=== PATIENT | female | born 1935 | race Caucasian/White ===

== ENCOUNTER 2016-08-13 13:46 | Emergency (ER) | payer MEDICARE ==
[2016-08-13] MEDS ORDERED: ONDANSETRON 4 MG/2 ML VIAL IVP STA (14:21)
[2016-08-13] MEDS ORDERED: SODIUM CHLORIDE 0.9% 1,000 ML IV STA (14:21)
[2016-08-13] MEDS ORDERED: RX INFO: IV CONTRAST WAS GIVEN 1 EACH MISC MISCELLANE PRN (14:21)
[2016-08-13] MEDS ORDERED: HYDROmorphone 1 MG/ML 1 ML SYRINGE IVP STA (14:21)
[2016-08-13 14:54] LABS: Amorphous Sediment,Urine Rare /hpf; Appearance,Urine Clear (Clear); Bilirubin,Urine Negative (Negative); Glucose,Urine (UA) Negative (Negative); Ketones,Urine Negative (Negative); Leukocyte Esterase,Urine Small (Negative); Nitrite,Urine Negative (Negative); Particle Count 792; Protein,Urine Negative (Negative); RBC,Urine 1 /hpf (0-5); Specific Gravity,Urine 1.008 (1.001-1.035); Squamous Epithelial Cell,Urine 1 /hpf (0-4); UA Billing (MACRO vs. MICRO) MICRO; Urobilinogen,Urine <2.0 mg/dL (<2.0); WBC,Urine 4 /hpf (0-5)
[2016-08-13 15:00] LABS: Basophils % (A) 0 %; CH 31.5; CHCM 32.8; Eosinophils # (A) 0.2 k/uL (0-0.7); Eosinophils % (A) 2 %; HCT 38.1 % (34.0-46.0); HDW 2.29; HGB 12.7 gm/dL (11.4-16.0); Luc # (Auto) 0.14; Luc % (Auto) 1; Lymphocytes # (A) 1.4 k/uL (1.0-4.8); Lymphocytes % (A) 14 %; MCH 32.3 pg (25.0-35.0); MCHC 33.5 g/dL (31.0-37.0); MCV 96.3 fL (80.0-100.0); Mean Platelet Volume 7.3; Monocytes # (A) 0.6 k/uL (0-1.0); Monocytes % (A) 6 %; Neutrophils # (A) 7.4 k/uL (1.3-7.7); Neutrophils % (A) 76 %; RBC 3.95 m/uL (3.80-5.40); RDW 13.6 % (11.5-15.5); WBC 9.8 k/uL (3.8-10.6)
[2016-08-13 15:08] LABS: ALT 37 U/L (9-52); AST 33 U/L (14-36); Alkaline Phosphatase 109 U/L (38-126); Amylase 42 U/L (30-110); Anion Gap 12 mmol/L; Blood Urea Nitrogen 35 mg/dL (7-17); Calcium 9.2 mg/dL (8.4-10.2); Carbon Dioxide 23 mmol/L (22-30); Chloride 105 mmol/L (98-107); Glucose 104 mg/dL (74-99); Non-African American GFR(MDRD) 59 (>60 ml/min/1.73 sqM); Potassium 4.8 mmol/L (3.5-5.1); Sodium 140 mmol/L (137-145); Total Bilirubin 0.6 mg/dL (0.2-1.3); Total Protein 7.4 g/dL (6.3-8.2)
--- NOTE | 2016-08-13 16:19 | CT ---
EXAMINATION TYPE: CT abdomen pelvis w con DATE OF EXAM: 08/13/2016 3:57 PM REFERENCE: Previous study dated 03/20/2015. HISTORY: abdominal pain HISTORY: No bowel movements from colostomy x 1 week. REFERENCE: NONE CT DLP: 1041.00 mGy Automated exposure control for dose reduction was used. TECHNIQUE: Helical acquisition through the abdomen and pelvis was obtained following the oral ingesti on of without Oral Contrast and following intravenous administration of 100 mL of Omnipaque 300. The data was reformatted in axial, coronal and sagittal projections. FINDINGS: There is a 5.8 mm pulmonary nodule in the right middle lobe, best seen on image 1. There i s a calcified granuloma in the posterior basal segment of the right lower lobe. There is no pleural o r pericardial fluid. The heart is enlarged. Within the abdomen, the liver, spleen and gallbladder are unremarkable. There is granulomatous change within the spleen. Both adrenal glands are normal. There is a simple appearing 1.5 cm cyst in the lower pole of the left kidney. The kidneys are otherwi se unremarkable. The pancreas is somewhat atrophic. There is extensive vascular calcification throughout the visualized arterial tree. There is no signif icant retroperitoneal, iliac or inguinal adenopathy. The uterus and ovaries are not visualized. The bladder is unremarkable. There is a defunctioning colostomy in the right lower quadrant containing loops of large bowel. There is fecal material both proximal and distal to this. The appendix is not visualized. Small bowel loops are normal. There is no evidence of free fluid or free air. There have been previous kyphoplasty at L3 and L4. There are worsening wedge compression fractures at T11, T12 and L1. There is a superior endplate infraction and L2. This was present previously. IMPRESSION: 1. SOLITARY 6 MM PULMONARY NODULE IN THE RIGHT MIDDLE LOBE. 2. 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 3. SIMPLE APPEARING LEFT LOWER POLE RENAL CYST. 4. POSTSURGICAL CHANGE. 5. WORSENING WEDGE COMPRESSION FRACTURES T11, T12 AND L1.
--- NOTE | 2016-08-13 16:41 | ED ---
Abdominal Pain HPI - General Chief Complaint: Abdominal Pain Stated Complaint: poss bowel obstruction-sent by Time Seen by Provider: 08/13/16 14:08 Source: patient Mode of arrival: ambulatory Limitations: no limitations - History of Present Illness Initial Comments: ComPlaning about spleen not working well bowels LOW and concerned about obstruction O she'll she denies any nausea any vomiting mild discomfort around the colostomy area. He denies any headaches no neck stiffness no chest pain or shortness of breath some abdominal discomfort no frequency urgency dysuria no symptoms of TIA or CVA - Related Data Home Medications Medication Instructions Recorded Confirmed Isosorbide Mononitrate [Imdur] 60 mg PO QAM 07/29/13 08/13/16 Pilocarpine HCl [Salagen] 7.5 mg PO TID 07/29/13 08/13/16 L.acidoph/B.long/L.plant/B.lac 1 cap PO W/SUPPER 05/09/14 08/13/16 [Probiotic Acidophilus Beads] Tolterodine Tartrate [Detrol LA] 4 mg PO QAM 05/09/14 08/13/16 cycloSPORINE 0.05% OPHTH SOLN 1 drops BOTH EYES BID 05/14/14 08/13/16 [Restasis] Multivitamins, Thera [Multivitamin 1 tab PO W/SUPPER 03/01/15 08/13/16 (formulary)] Vit C/E/Zn/Coppr/Lutein/Zeaxan 2 cap PO DAILY 03/14/15 08/13/16 [Preservision Areds 2 Softgel] Escitalopram [Lexapro] 10 mg PO DAILY 08/29/15 08/13/16 OLANZapine [ZyPREXA] 10 mg PO PC-SUPPER 08/29/15 08/13/16 fentaNYL 12MCG/HR PATCH [Duragesic 1 patch TRANSDERM Q72H 08/29/15 08/13/16 12MCG/HR] ALPRAZolam [Xanax] 0.25 mg PO BID PRN 11/19/15 08/13/16 Albuterol Inhaler [Ventolin Hfa 1 - 2 puff INHALATION RT-Q6H PRN 03/08/16 Inhaler] Ammonium Lactate Lotion 1 applic TOPICAL BID 03/08/16 08/13/16 [Lac-Hydrin 12% Lotion] Cyanocobalamin [Vitamin B-12 1,000 mcg SQ WE 03/08/16 08/13/16 Injection] Gabapentin [Neurontin] 300 mg PO TID 03/08/16 08/13/16 traMADol HCL [Ultram] 50 mg PO Q6HR PRN 03/08/16 08/13/16 Sodium Chloride [Saline Mist] 2 spray NASAL TID 08/13/16 08/13/16 Previous Rx's Medication Instructions Recorded Lisinopril [Zestril] 40 mg PO BID #60 tab 03/11/16 Metoprolol Succinate (ER) [Toprol 150 mg PO DAILY #90 tab.er.24h 03/11/16 XL] Allergies Allergy/AdvReac Type Severity Reaction Status Date / Time aspirin Allergy Anaphylaxis Verified 08/13/16 14:47 caffeine Allergy Unknown Verified 08/13/16 14:47 celecoxib [From Celebrex] Allergy Rash/Hives Verified 08/13/16 14:47 codeine Allergy Anaphylaxis Verified 08/13/16 14:47 doxycycline Allergy Unknown Verified 08/13/16 14:47 hydrocodone bitartrate Allergy Unknown Verified 08/13/16 14:47 [From [place]] milk Allergy Unknown Verified 08/13/16 14:47 Penicillins Allergy Rash/Hives Verified 08/13/16 14:47 rofecoxib [From Vioxx] Allergy Rash/Hives Verified 08/13/16 14:47 albuterol sulfate AdvReac Rapid Verified 08/13/16 14:47 [From Ventolin HFA] Heart Rate clarithromycin [From Biaxin] AdvReac Nausea Verified 08/13/16 14:47 clindamycin AdvReac Nausea Verified 08/13/16 14:47 levofloxacin [From Levaquin] AdvReac Nausea Verified 08/13/16 14:47 morphine AdvReac Hallucinati Verified 08/13/16 14:47 ons Morpholine Analogues AdvReac Confusion Verified 08/13/16 14:47 ranitidine HCl [From Zantac] AdvReac Unknown Verified 08/13/16 14:47 Review of Systems ROS Statement: Those systems with pertinent positive or pertinent negative responses have been documented in the HPI. ROS Other: All systems not noted in ROS Statement are negative. Past Medical History Past Medical History: Asthma, Coronary Artery Disease (CAD), Cancer, GI Bleed, Hypertension, Memory Impairment, Musculoskeletal Disorder, Osteoarthritis (OA), Pneumonia, Sleep Apnea/CPAP/BIPAP Additional Past Medical History / Comment(s): HX OF SLEEP APNEA (HAD SURGERY), Sjogren syndrome, RECTAL CANCER WITH COLOSTOMY , osteoporosis, anemia, OVER ACTIVE BLADDER, hx. L4 fracture, pneumonia in May 2014 BRONCH WASHING WAS POSITIVE FOR KLEBSIELLA PNUEMONAE., BACK PAIN History of Any Multi-Drug Resistant Organisms: ESBL Date of last positivie culture/infection: 06/08/2014 MDRO Source:: Bronch Jesy-RMBD-Vdhcifxous pneumoniae Past Surgical History: Adenoidectomy, Appendectomy, Back Surgery, Bowel Resection, Breast Surgery, Heart Catheterization, Hysterectomy, Tonsillectomy, Uterine Ablation Additional Past Surgical History / Comment(s): PERMANENT COLOSTOMY. throat surgery removed uvula,L3-L4 two fractured vertebrae, sofi cataracts, kyphoplasty L4, PICCLINE IN MAY FOR ABX(PNE) SINCE REMOVED. Past Anesthesia/Blood Transfusion Reactions: No Reported Reaction Additional Past Anesthesia/Blood Transfusion Reaction / Comment(s): HX OF BLOOD TRANSFUSION Past Psychological History: No Psychological Hx Reported Smoking Status: Never smoker Past Alcohol Use History: Occasional Past Drug Use History: None Reported - Past Family History Mother History Unknown: Yes Family Medical History: Dialysis, Renal Disease Brother(s) History Unknown: Yes Family Medical History: No Reported History Sister(s) History Unknown: Yes Family Medical History: No Reported History Additional Family Medical History / Comment(s): Patient has 3 adopted kids. Father Family Medical History: Cancer, CVA/TIA Additional Family Medical History / Comment(s): 3 out of 4 siblings dx. autoimmune disease General Exam - General Exam Comments Initial Comments: General: The patient is awake and alert, in no distress, and does not appear acutely ill. GCS is 15 Skin: Skin is warm and dry and no rashes or lesions are noted. Eye: Pupils are equal, round and reactive to light, extra-ocular movements are intact; there is normal conjunctiva bilaterally. Ears, nose, mouth and throat: There are moist mucous membranes and no oral lesions. Neck: The neck is supple, there is no tenderness or JVD. No signs of meningitis Cardiovascular: There is a regular rate and rhythm. No murmur, rub or gallop is appreciated. Respiratory: To auscultation bilateral, no wheezing no rhonchi no distress respiratory tsai noticed Gastrointestinal: Soft, non-distended, non-tender abdomen without masses or organomegaly noted. There is no rebound or guarding present. Bowel sounds are unremarkable. His colostomy bag did see some contents in the Back: There is no tenderness to palpation in the midline. There is no obvious deformity. Musculoskeletal: Normal ROM, no tenderness, There is no pedal edema. There is no calf tenderness or swelling. No cords were appreciated. Neurological: CN II-XII intact, Cranial nerves III through XII are intact. There are no obvious motor or sensory deficits. Coordination appears grossly intact. Speech is normal. Psychiatric: Cooperative, appropriate mood & affect, normal judgment. Limitations: no limitations Course Vital Signs 08/13/16 08/13/16 08/13/16 13:54 14:26 15:10 Temperature 97.8 F 97.6 F 97.6 F Pulse Rate 78 60 76 Respiratory 18 16 15 Rate Blood Pressure 146/74 118/79 127/64 O2 Sat by Pulse 98 97 96 Oximetry 08/13/16 15:55 Temperature Pulse Rate 64 Respiratory 15 Rate Blood Pressure 118/67 O2 Sat by Pulse 99 Oximetry He was reassessed after I have ordered CT of the abdomen back and 01/05/1930 CT of the abdomen have some findings like all lung nodule compression fractures cyst on the kidneys no significant findings consistent with a bowel obstruction was were noticed, CBC, compressive metabolic panel, urinalysis are all unremarkable these findings were explained to the patient and her and she be discharged to follow with the Dr. Garcia and she is advised to increase the fluid and fiber intake and hopefully that would help her with moving her bowels more adequately area if symptoms get worse she is advised come back to the ER Medical Decision Making - Lab Data Result diagrams: 08/13/16 14:35 08/13/16 14:35 Lab Results 08/13/16 08/13/16 08/13/16 Range/Units 14:20 14:35 14:35 WBC 9.8 (3.8-10.6) k/uL RBC 3.95 (3.80-5.40) m/uL Hgb 12.7 (11.4-16.0) gm/dL Hct 38.1 (34.0-46.0) % MCV 96.3 (80.0-100.0) fL MCH 32.3 (25.0-35.0) pg MCHC 33.5 (31.0-37.0) g/dL RDW 13.6 (11.5-15.5) % Plt Count 185 (150-450) k/uL Neutrophils % 76 % Lymphocytes % 14 % Monocytes % 6 % Eosinophils % 2 % Basophils % 0 % Neutrophils # 7.4 (1.3-7.7) k/uL Lymphocytes # 1.4 (1.0-4.8) k/uL Monocytes # 0.6 (0-1.0) k/uL Eosinophils # 0.2 (0-0.7) k/uL Basophils # 0.0 (0-0.2) k/uL Sodium 140 (137-145) mmol/L Potassium 4.8 (3.5-5.1) mmol/L Chloride 105 (98-107) mmol/L Carbon Dioxide 23 (22-30) mmol/L Anion Gap 12 mmol/L BUN 35 H (7-17) mg/dL Creatinine 0.91 (0.52-1.04) mg/dL Est GFR (MDRD) Af Amer >60 (>60 ml/min/1.73 sqM) Est GFR (MDRD) Non-Af 59 (>60 ml/min/1.73 sqM) Glucose 104 H (74-99) mg/dL Plasma Lactic Acid Ric (0.7-2.0) mmol/L Calcium 9.2 (8.4-10.2) mg/dL Total Bilirubin 0.6 (0.2-1.3) mg/dL AST 33 (14-36) U/L ALT 37 (9-52) U/L Alkaline Phosphatase 109 (38-126) U/L Total Protein 7.4 (6.3-8.2) g/dL Albumin 4.5 (3.5-5.0) g/dL Amylase 42 (30-110) U/L Lipase 43 (23-300) U/L Urine Color Light Yellow Urine Appearance Clear (Clear) Urine pH 6.0 (5.0-8.0) Ur Specific [place] 1.008 (1.001-1.035) Urine Protein Negative (Negative) Urine Glucose (UA) Negative (Negative) Urine Ketones Negative (Negative) Urine Blood Negative (Negative) Urine Nitrite Negative (Negative) Urine Bilirubin Negative (Negative) Urine Urobilinogen <2.0 (<2.0) mg/dL Ur Leukocyte Esterase Small H (Negative) Urine RBC 1 (0-5) /hpf Urine WBC 4 (0-5) /hpf Ur Squamous Epith Cells 1 (0-4) /hpf Amorphous Sediment Rare H (None) /hpf 08/13/16 Range/Units 14:35 WBC (3.8-10.6) k/uL RBC (3.80-5.40) m/uL Hgb (11.4-16.0) gm/dL Hct (34.0-46.0) % MCV (80.0-100.0) fL MCH (25.0-35.0) pg MCHC (31.0-37.0) g/dL RDW (11.5-15.5) % Plt Count (150-450) k/uL Neutrophils % % Lymphocytes % % Monocytes % % Eosinophils % % Basophils % % Neutrophils # (1.3-7.7) k/uL Lymphocytes # (1.0-4.8) k/uL Monocytes # (0-1.0) k/uL Eosinophils # (0-0.7) k/uL Basophils # (0-0.2) k/uL Sodium (137-145) mmol/L Potassium (3.5-5.1) mmol/L Chloride (98-107) mmol/L Carbon Dioxide (22-30) mmol/L Anion Gap mmol/L BUN (7-17) mg/dL Creatinine (0.52-1.04) mg/dL Est GFR (MDRD) Af Amer (>60 ml/min/1.73 sqM) Est GFR (MDRD) Non-Af (>60 ml/min/1.73 sqM) Glucose (74-99) mg/dL Plasma Lactic Acid Ric 1.3 (0.7-2.0) mmol/L Calcium (8.4-10.2) mg/dL Total Bilirubin (0.2-1.3) mg/dL AST (14-36) U/L ALT (9-52) U/L Alkaline Phosphatase (38-126) U/L Total Protein (6.3-8.2) g/dL Albumin (3.5-5.0) g/dL Amylase (30-110) U/L Lipase (23-300) U/L Urine Color Urine Appearance (Clear) Urine pH (5.0-8.0) Ur Specific [place] (1.001-1.035) Urine Protein (Negative) Urine Glucose (UA) (Negative) Urine Ketones (Negative) Urine Blood (Negative) Urine Nitrite (Negative) Urine Bilirubin (Negative) Urine Urobilinogen (<2.0) mg/dL Ur Leukocyte Esterase (Negative) Urine RBC (0-5) /hpf Urine WBC (0-5) /hpf Ur Squamous Epith Cells (0-4) /hpf Amorphous Sediment (None) /hpf Disposition Clinical Impression: Lung nodule, Compression fracture, Abdominal pain Disposition: HOME SELF-CARE Instructions: Abdominal Pain (ED) Additional Instructions: And centering she is 81 another recommend any narcotics for the pain control, she is advised to do Tylenol 1 g every 8 when necessary Referrals: Shimon Garcia MD [Primary Care Provider] - 1-2 days
[2016-08-13 17:01] VITALS: BP 158/77; PULSE 90; RESP 16; TEMP 98.7
== END 2016-08-13 17:00 | disposition home or self-care (01) ==
LOC: EC 13:46
DX: M48.54XA Collapsed vertebra, not elsewhere classified, thoracic region, initial encounter for fracture (principal); R10.9 Unspecified abdominal pain; R91.1 Solitary pulmonary nodule; I25.10 Atherosclerotic heart disease of native coronary artery without angina pectoris; J45.909 Unspecified asthma, uncomplicated; I10 Essential (primary) hypertension; M19.90 Unspecified osteoarthritis, unspecified site; Z85.048 Personal history of other malignant neoplasm of rectum, rectosigmoid junction, and anus; D64.9 Anemia, unspecified; M81.0 Age-related osteoporosis without current pathological fracture; Z79.891 Long term (current) use of opiate analgesic; Z79.899 Other long term (current) drug therapy; Z88.6 Allergy status to analgesic agent; Z88.1 Allergy status to other antibiotic agents; Z88.0 Allergy status to penicillin; Z91.011 Allergy to milk products; Z88.5 Allergy status to narcotic agent; Z88.8 Allergy status to other drugs, medicaments and biological substances; Z98.890 Other specified postprocedural states; Z90.710 Acquired absence of both cervix and uterus; Z93.3 Colostomy status
CPT/HCPCS: 36415; 80053; 82150; 83605; 83690; 85025; 81001; 74177; 99284; 96374; 96375; 96361 ×2; J2405; J1170; Q9967

== ENCOUNTER → 2016-09-10 | Outpatient (CLI) | payer MEDICARE ==
--- NOTE | 2016-09-10 15:12 | XR ---
EXAMINATION TYPE: XR chest 2V DATE OF EXAM: 09/10/2016 COMPARISON: 03/09/2016 INDICATION: Cough TECHNIQUE: Frontal and lateral views of the chest are obtained. FINDINGS: The heart size is normal. The pulmonary vasculature is somewhat prominent. There is a 0.7 cm nodule within the right midlung, present previously. Old left rib fractures evident . Old vertebroplasty of the mid thoracic spine is evident. Infiltrate at the right base has resolved. . IMPRESSION: 1. Mild prominence of pulmonary vascular markings. Follow-up studies are recommended. 2. Suspected granuloma right midlung. This has been present and stable 2 years.
== END | disposition home or self-care (01) ==
LOC: RADXRMAIN 14:44
PROVIDERS: ATTEND Internal Medicine
DX: R05 Cough (principal)
CPT/HCPCS: 71020

== ENCOUNTER 2016-10-30 13:53 | Emergency (ER) | payer MEDICARE ==
--- NOTE | 2016-10-30 14:09 | ED ---
General Adult HPI - General Chief complaint: Abdominal Pain Stated complaint: abdominal pain Time Seen by Provider: 10/30/16 14:09 Source: patient Mode of arrival: wheelchair Limitations: no limitations - History of Present Illness Initial comments: Patient is an 81-year-old female with past medical history significant for colon cancer status post colectomy approximately 14 years ago. Patient presents to the ED today via private vehicle for evaluation of lower abdominal pain. Patient states that yesterday she was working in her kitchen, she states that she reached up into a At which time she heard a snapping sound and felt a sharp pain in her abdomen. Patient reports that she has experienced persistent lower abdominal pain since that time. Patient does state that her colostomy has remained peak, patent and productive. She's noticed no blood in her stool. She reports she's been able to eat and drink normally since the onset of abdominal pain. She denies any new bulges or masses in her abdomen. Patient does report some dysuria which she's been experiencing intermittently for a period of time, she states she was treated for urinary tract infection 3 weeks ago. He did not have a follow-up urinalysis to confirm successful treatment of her UTI. Patient denies any fevers, chills, nausea, vomiting or chest pain. She does state that she's experienced intermittent shortness of breath for over a year and this is unchanged recently. She denies any numbness tingling or swelling in her arms or legs. She denies any paresthesias or weakness. - Related Data Home Medications Medication Instructions Recorded Confirmed Isosorbide Mononitrate [Imdur] 60 mg PO QAM 07/29/13 10/30/16 Pilocarpine HCl [Salagen] 7.5 mg PO BID 07/29/13 10/30/16 L.acidoph/B.long/L.plant/B.lac 1 cap PO W/SUPPER 05/09/14 10/30/16 [Probiotic Acidophilus Beads] Tolterodine Tartrate [Detrol LA] 4 mg PO QAM 05/09/14 10/30/16 Multivitamins, Thera [Multivitamin 1 tab PO W/SUPPER 03/01/15 10/30/16 (formulary)] Vit C/E/Zn/Coppr/Lutein/Zeaxan 2 cap PO DAILY 03/14/15 10/30/16 [Preservision Areds 2 Softgel] Escitalopram [Lexapro] 10 mg PO DAILY 08/29/15 10/30/16 OLANZapine [ZyPREXA] 10 mg PO PC-SUPPER 08/29/15 10/30/16 ALPRAZolam [Xanax] 0.25 mg PO BID PRN 11/19/15 10/30/16 Ascorbic Acid [Vitamin C] 500 mg PO DAILY 10/30/16 10/30/16 Cholecalciferol [Vitamin D3] 1,000 unit PO DAILY 10/30/16 10/30/16 Lansoprazole [Prevacid] 15 mg PO DAILY 10/30/16 10/30/16 Lisinopril 40 mg PO DAILY 10/30/16 10/30/16 Ubidecarenone [Co Q-10] 100 mg PO W/SUPPER 10/30/16 10/30/16 Previous Rx's Medication Instructions Recorded Metoprolol Succinate (ER) [Toprol 150 mg PO DAILY #90 tab.er.24h 03/11/16 XL] Phenazopyridine HCl [Pyridium] 100 mg PO TID #6 tab 10/30/16 Sulfamethox-Tmp 800-160Mg [Bactrim 1 tab PO Q12HR #14 tab 10/30/16 DS 800-160 mg] Allergies Allergy/AdvReac Type Severity Reaction Status Date / Time aspirin Allergy Anaphylaxis Verified 10/30/16 14:37 caffeine Allergy Unknown Verified 10/30/16 14:37 celecoxib [From Celebrex] Allergy Rash/Hives Verified 10/30/16 14:37 codeine Allergy Anaphylaxis Verified 10/30/16 14:37 doxycycline Allergy Unknown Verified 10/30/16 14:37 hydrocodone bitartrate Allergy Unknown Verified 10/30/16 14:37 [From [place]] milk Allergy Unknown Verified 10/30/16 14:37 Penicillins Allergy Rash/Hives Verified 10/30/16 14:37 rofecoxib [From Vioxx] Allergy Rash/Hives Verified 10/30/16 14:37 albuterol sulfate AdvReac Rapid Verified 10/30/16 14:37 [From Ventolin HFA] Heart Rate clarithromycin [From Biaxin] AdvReac Nausea Verified 10/30/16 14:37 clindamycin AdvReac Nausea Verified 10/30/16 14:37 levofloxacin [From Levaquin] AdvReac Nausea Verified 10/30/16 14:37 Morpholine Analogues AdvReac Confusion Verified 10/30/16 14:37 ranitidine HCl [From Zantac] AdvReac Unknown Verified 10/30/16 14:37 Review of Systems ROS Statement: Those systems with pertinent positive or pertinent negative responses have been documented in the HPI. ROS Other: All systems not noted in ROS Statement are negative. Constitutional: Denies: fever, chills ENT: Denies: throat pain Respiratory: Reports: dyspnea (chronic). Denies: cough Cardiovascular: Denies: chest pain, palpitations Endocrine: Denies: fatigue Gastrointestinal: Reports: abdominal pain. Denies: nausea, vomiting, diarrhea, constipation, hematemesis, melena, hematochezia Genitourinary: Reports: dysuria, frequency Musculoskeletal: Denies: back pain Skin: Denies: rash, lesions Neurological: Denies: headache Past Medical History Past Medical History: Asthma, Coronary Artery Disease (CAD), Cancer, GI Bleed, Hypertension, Memory Impairment, Musculoskeletal Disorder, Osteoarthritis (OA), Pneumonia, Sleep Apnea/CPAP/BIPAP Additional Past Medical History / Comment(s): HX OF SLEEP APNEA (HAD SURGERY), Sjogren syndrome, RECTAL CANCER WITH COLOSTOMY , osteoporosis, anemia, OVER ACTIVE BLADDER, hx. L4 fracture, pneumonia in May 2014 BRONCH WASHING WAS POSITIVE FOR KLEBSIELLA PNUEMONAE., BACK PAIN History of Any Multi-Drug Resistant Organisms: ESBL Date of last positivie culture/infection: 06/08/2014 MDRO Source:: Bronch Mvwf-[id number]-Dbdzsyxayr pneumoniae Past Surgical History: Adenoidectomy, Appendectomy, Back Surgery, Bowel Resection, Breast Surgery, Heart Catheterization, Hysterectomy, Tonsillectomy, Uterine Ablation Additional Past Surgical History / Comment(s): PERMANENT COLOSTOMY. throat surgery removed uvula,L3-L4 two fractured vertebrae, sofi cataracts, kyphoplasty L4, PICCLINE IN MAY FOR ABX(PNE) SINCE REMOVED. Past Anesthesia/Blood Transfusion Reactions: No Reported Reaction Additional Past Anesthesia/Blood Transfusion Reaction / Comment(s): HX OF BLOOD TRANSFUSION Past Psychological History: No Psychological Hx Reported Smoking Status: Never smoker Past Alcohol Use History: Occasional Past Drug Use History: None Reported - Past Family History Mother History Unknown: Yes Family Medical History: Dialysis, Renal Disease Brother(s) History Unknown: Yes Family Medical History: No Reported History Sister(s) History Unknown: Yes Family Medical History: No Reported History Additional Family Medical History / Comment(s): Patient has 3 adopted kids. Father Family Medical History: Cancer, CVA/TIA Additional Family Medical History / Comment(s): 3 out of 4 siblings dx. autoimmune disease General Exam Limitations: no limitations General appearance: alert, in no apparent distress Head exam: Present: atraumatic, normocephalic, normal inspection Eye exam: Present: normal appearance, PERRL, EOMI. Absent: scleral icterus, conjunctival injection, periorbital swelling ENT exam: Present: normal exam, mucous membranes moist Neck exam: Present: normal inspection. Absent: tenderness, meningismus, lymphadenopathy Respiratory exam: Present: normal lung sounds bilaterally. Absent: respiratory distress, wheezes, rales, rhonchi, stridor Cardiovascular Exam: Present: regular rate, normal rhythm, normal heart sounds. Absent: rubs, gallop, clicks GI/Abdominal exam: Present: soft, distended, normal bowel sounds, other ( colostomy, clean dressing, no surrounding erythema, no tenderness to palpation of ostomy, ostomy pink, patent, productive of brown/green stool). Absent: tenderness, guarding, rebound, rigid, diminished bowel sounds, hyperactive bowel sounds, hypoactive bowel sounds, organomegaly Rectal exam: Present: deferred Extremities exam: Present: normal inspection, full ROM, normal capillary refill. Absent: tenderness, pedal edema, joint swelling, calf tenderness Neurological exam: Present: alert, oriented X3, CN II-XII intact Psychiatric exam: Present: normal affect, normal mood Skin exam: Present: warm, dry, intact, normal color. Absent: rash Course Vital Signs 10/30/16 10/30/16 10/30/16 13:57 16:36 17:40 Temperature 97.0 F L 97.3 F L Pulse Rate 76 88 90 Respiratory 17 18 Rate Blood Pressure 126/66 149/67 133/57 O2 Sat by Pulse 96 97 97 Oximetry Medical Decision Making - Medical Decision Making Patient was seen and evaluated, history is obtained from the patient and at bedside Physical exam with mild tenderness to abdomen. No focal tenderness. Patient also suffering from dysuria and urinary frequency with recent UTI unsure what antibiotic she was on for this Labs and CT imaging were ordered CT with no change in bowels from previous findings, CT does reveal possible cystocele Labs no acute findings Urinalysis consistent with urinary tract infection, culture was ordered first dose of Bactrim was given in the emergency department patient was discharged home with prescription for Bactrim Results were discussed with the patient and her at bedside. I advised the patient the findings of a possible cystocele, patient states she has been evaluated by urology in the past for her frequent urinary tract infections. She has never undergone a cystoscopy, she does state that urologist have reviewed her CT scans in the past. Patient reports her most recent follow-up with urology was in the previous 6 months, she can't recall an exact date. I advised the patient that she needs to follow up with her urologist to again discuss her frequent urinary tract infections. All questions pertaining care were answered to the best my ability and the patient was discharged home with prescription for oral Bactrim and advised to return to the ER for any acute worsening of her abdominal pain. - Lab Data Result diagrams: 10/30/16 14:40 10/30/16 14:40 Lab Results 10/30/16 10/30/16 10/30/16 Range/Units 14:30 14:40 14:40 WBC 7.3 (3.8-10.6) k/uL RBC 3.47 L (3.80-5.40) m/uL Hgb 11.0 L (11.4-16.0) gm/dL Hct 34.3 (34.0-46.0) % MCV 98.7 (80.0-100.0) fL MCH 31.8 (25.0-35.0) pg MCHC 32.2 (31.0-37.0) g/dL RDW 13.7 (11.5-15.5) % Plt Count 127 L (150-450) k/uL Neutrophils % 78 % Lymphocytes % 12 % Monocytes % 6 % Eosinophils % 3 % Basophils % 0 % Neutrophils # 5.7 (1.3-7.7) k/uL Lymphocytes # 0.8 L (1.0-4.8) k/uL Monocytes # 0.4 (0-1.0) k/uL Eosinophils # 0.2 (0-0.7) k/uL Basophils # 0.0 (0-0.2) k/uL Sodium 140 (137-145) mmol/L Potassium 4.1 (3.5-5.1) mmol/L Chloride 109 H (98-107) mmol/L Carbon Dioxide 20 L (22-30) mmol/L Anion Gap 11 mmol/L BUN 26 H (7-17) mg/dL Creatinine 0.95 (0.52-1.04) mg/dL Est GFR (MDRD) Af Amer >60 (>60 ml/min/1.73 sqM) Est GFR (MDRD) Non-Af 56 (>60 ml/min/1.73 sqM) Glucose 94 (74-99) mg/dL Calcium 8.8 (8.4-10.2) mg/dL Urine Color Yellow Urine Appearance Cloudy H (Clear) Urine pH 5.5 (5.0-8.0) Ur Specific [place] 1.016 (1.001-1.035) Urine Protein 1+ H (Negative) Urine Glucose (UA) Negative (Negative) Urine Ketones Negative (Negative) Urine Blood Negative (Negative) Urine Nitrite Negative (Negative) Urine Bilirubin Negative (Negative) Urine Urobilinogen <2.0 (<2.0) mg/dL Ur Leukocyte Esterase Large H (Negative) Urine WBC >182 H (0-5) /hpf Urine Bacteria Many H (None) /hpf Urine Mucus Rare H (None) /hpf Disposition Clinical Impression: Cystocele, UTI (urinary tract infection) Disposition: HOME SELF-CARE Condition: Good Instructions: Urinary Tract Infection in Women (ED) Prescriptions: Phenazopyridine HCl [Pyridium] 100 mg PO TID #6 tab Sulfamethox-Tmp 800-160Mg [Bactrim DS 800-160 mg] 1 tab PO Q12HR #14 tab Referrals: Shimon Garcia MD [Primary Care Provider] - 1-2 days
[2016-10-30] MEDS ORDERED: RX INFO: IV CONTRAST WAS GIVEN 1 EACH MISC MISCELLANE PRN (14:20)
[2016-10-30 14:55] LABS: Basophils % (A) 0 %; CH 32.3; CHCM 32.9; Eosinophils # (A) 0.2 k/uL (0-0.7); Eosinophils % (A) 3 %; HCT 34.3 % (34.0-46.0); HDW 2.63; Luc # (Auto) 0.15; Luc % (Auto) 2; Lymphocytes # (A) 0.8 k/uL (1.0-4.8); Lymphocytes % (A) 12 %; MCH 31.8 pg (25.0-35.0); MCHC 32.2 g/dL (31.0-37.0); MCV 98.7 fL (80.0-100.0); Mean Platelet Volume 8.9; Monocytes # (A) 0.4 k/uL (0-1.0); Monocytes % (A) 6 %; Neutrophils # (A) 5.7 k/uL (1.3-7.7); Neutrophils % (A) 78 %; RBC 3.47 m/uL (3.80-5.40); RDW 13.7 % (11.5-15.5); WBC 7.3 k/uL (3.8-10.6); WBC (Perox) 7.59
[2016-10-30 15:07] LABS: Anion Gap 11 mmol/L; Blood Urea Nitrogen 26 mg/dL (7-17); Calcium 8.8 mg/dL (8.4-10.2); Carbon Dioxide 20 mmol/L (22-30); Chloride 109 mmol/L (98-107); Glucose 94 mg/dL (74-99); Non-African American GFR(MDRD) 56 (>60 ml/min/1.73 sqM); Potassium 4.1 mmol/L (3.5-5.1); Sodium 140 mmol/L (137-145)
[2016-10-30 15:13] LABS: Appearance,Urine Cloudy (Clear); Bacteria,Urine Many /hpf; Bilirubin,Urine Negative (Negative); Glucose,Urine (UA) Negative (Negative); Ketones,Urine Negative (Negative); Leukocyte Esterase,Urine Large (Negative); Mucus,Urine Rare /hpf; Nitrite,Urine Negative (Negative); PH, Urine 5.5 (5.0-8.0); Particle Count 15284; Protein,Urine 1+ (Negative); Specific Gravity,Urine 1.016 (1.001-1.035); UA Billing (MACRO vs. MICRO) MICRO; Urobilinogen,Urine <2.0 mg/dL (<2.0); WBC,Urine >182 /hpf (0-5)
[2016-10-30] MEDS ORDERED: MORPHINE SULFATE 4 MG/ML SYRINGE IVP STA (15:25)
--- NOTE | 2016-10-30 16:03 | CT ---
EXAMINATION TYPE: CT abdomen pelvis w con DATE OF EXAM: 10/30/2016 COMPARISON: Prior CT abdomen pelvis 08/13/2016 HISTORY: Abdominal pain x2 days. CT DLP: 575 mGycm Automated exposure control for dose reduction was used. TECHNIQUE: Helical acquisition of images from the lung bases through the pelvis have been completed. CONTRAST: Performed without Oral Contrast and with IV Contrast, patient injected with 100 mL of Omnipaque 300. FINDINGS: Heart size is stable and enlarged. LUNG BASES: Calcified granuloma present in the posterior costophrenic sulcus as on prior exam. Nodula r density in the right middle lobe is subcentimeter in size and noncalcified, closely opposed to the fissure, additional calcified granuloma along the right hemidiaphragm. AORTA: No significant abnormality is appreciated. LIVER/GB: Gallbladder is hydropic. Liver shows some dilated intra and extrahepatic biliary ducts similar to prior exam. PANCREAS: No significant abnormality is seen. SPLEEN: Stable. ADRENALS: No significant abnormality is seen. KIDNEYS: Stable in appearance, there is a cortical cyst at the lower pole left kidney measuring 15 mm . REPRODUCTIVE ORGANS: Absent BOWEL: Right lower quadrant shows an ostomy with parastomal hernia containing bowel loops as on prio r exam. No evident bowel obstruction. Suspect there is a rectocele as on prior exam. FREE AIR: No Free Air visible. ASCITES: None visible. PELVIC ADENOPATHY: None visualized. RETROPERITONEAL ADENOPATHY: No Retroperitoneal Adenopathy visible. URINARY BLADDER: There may be a cystocele present.. OSSEOUS STRUCTURES: Multilevel osteoporotic compression fractures, areas of vertebroplasty again not ed. Bone is demineralized. Multilevel spinal stenosis present. IMPRESSION: OLD GRANULOMATOUS DISEASE. Postop changes. Additional findings above. No significant interval change. Possible rectocele and cystocele.
[2016-10-30 16:36] VITALS: RESP 18
[2016-10-30] MEDS ORDERED: SULFAMETH-TMP DS STARTER PACK 2 TAB BTL PO STA (17:05)
[2016-10-30 17:41] VITALS: BP 133/57; PULSE 90; TEMP 97.3
== END 2016-10-30 17:42 | disposition home or self-care (01) ==
LOC: EC 13:53
DX: N81.10 Cystocele, unspecified (principal); N39.0 Urinary tract infection, site not specified; I25.10 Atherosclerotic heart disease of native coronary artery without angina pectoris; I10 Essential (primary) hypertension; N32.81 Overactive bladder; Z90.49 Acquired absence of other specified parts of digestive tract; Z85.048 Personal history of other malignant neoplasm of rectum, rectosigmoid junction, and anus; Z93.3 Colostomy status; Z88.6 Allergy status to analgesic agent; Z88.0 Allergy status to penicillin; Z88.1 Allergy status to other antibiotic agents; Z88.5 Allergy status to narcotic agent; Z91.011 Allergy to milk products; Z88.8 Allergy status to other drugs, medicaments and biological substances; Z79.899 Other long term (current) drug therapy
CPT/HCPCS: 99284; 96374; 36415; 80048; 85025; 81001; 87086; 87077; 87186; 74177; J2270; Q9967

== ENCOUNTER 2016-11-01 20:03 | Inpatient (IN) | payer MEDICARE ==
[2016-11-01] MEDS ORDERED: SODIUM CHLORIDE 0.9% 500 ML IV STA (20:26)
--- NOTE | 2016-11-01 20:33 | ED ---
General Adult HPI - General Chief complaint: Abdominal Pain Stated complaint: back,abd pain Time Seen by Provider: 11/01/16 20:19 Source: EMS, RN notes reviewed Mode of arrival: EMS Limitations: no limitations - History of Present Illness Initial comments: 81-year-old female presents emergency Department chief complaint of weakness. They state today he started to notice increasing weakness increased sleeping. He states she hasn't had a normal bowel movement about 2 days. She states her abdomen does feel somewhat off as well. They state that she's also been having some confusion at home as well for the past day or so. They were concerned due to the patient's symptoms without that they should be evaluated. There is been no chest pain or shortness of breath. Patient denies a cough. Patient does have a significant health history. He was concerned due to the patient's symptoms without that they should be seen. Patient denies any recent fever, chills, shortness of breath, chest pain, back pain, nausea vomiting, numbness or tingling, dysuria or hematuria, diarrhea, headaches or visual changes, or any other current symptoms. - Related Data Home Medications Medication Instructions Recorded Confirmed Isosorbide Mononitrate [Imdur] 60 mg PO QAM 07/29/13 11/01/16 Pilocarpine HCl [Salagen] 7.5 mg PO BID 07/29/13 11/01/16 L.acidoph/B.long/L.plant/B.lac 1 cap PO W/SUPPER 05/09/14 11/01/16 [Probiotic Acidophilus Beads] Tolterodine Tartrate [Detrol LA] 4 mg PO QAM 05/09/14 11/01/16 Multivitamins, Thera [Multivitamin 1 tab PO W/SUPPER 03/01/15 11/01/16 (formulary)] Vit C/E/Zn/Coppr/Lutein/Zeaxan 2 cap PO DAILY 03/14/15 11/01/16 [Preservision Areds 2 Softgel] Escitalopram [Lexapro] 10 mg PO DAILY 08/29/15 11/01/16 OLANZapine [ZyPREXA] 10 mg PO PC-SUPPER 08/29/15 11/01/16 ALPRAZolam [Xanax] 0.25 mg PO BID PRN 11/19/15 11/01/16 Ascorbic Acid [Vitamin C] 500 mg PO DAILY 10/30/16 11/01/16 Cholecalciferol [Vitamin D3] 1,000 unit PO DAILY 10/30/16 11/01/16 Lansoprazole [Prevacid] 15 mg PO DAILY 10/30/16 11/01/16 Lisinopril 40 mg PO DAILY 10/30/16 11/01/16 Ubidecarenone [Co Q-10] 100 mg PO W/SUPPER 10/30/16 11/01/16 Previous Rx's Medication Instructions Recorded Metoprolol Succinate (ER) [Toprol 150 mg PO DAILY #90 tab.er.24h 03/11/16 XL] Phenazopyridine HCl [Pyridium] 100 mg PO TID #6 tab 10/30/16 Sulfamethox-Tmp 800-160Mg [Bactrim 1 tab PO Q12HR #14 tab 10/30/16 DS 800-160 mg] Allergies Allergy/AdvReac Type Severity Reaction Status Date / Time aspirin Allergy Anaphylaxis Verified 11/01/16 20:18 caffeine Allergy Unknown Verified 11/01/16 20:18 celecoxib [From Celebrex] Allergy Rash/Hives Verified 11/01/16 20:18 codeine Allergy Anaphylaxis Verified 11/01/16 20:18 doxycycline Allergy Unknown Verified 11/01/16 20:18 hydrocodone bitartrate Allergy Unknown Verified 11/01/16 20:18 [From Tyler] milk Allergy Unknown Verified 11/01/16 20:18 Penicillins Allergy Rash/Hives Verified 11/01/16 20:18 rofecoxib [From Vioxx] Allergy Rash/Hives Verified 11/01/16 20:18 albuterol [From Ventolin HFA] AdvReac Unknown Verified 11/01/16 20:18 albuterol sulfate AdvReac Rapid Verified 11/01/16 20:18 [From Ventolin HFA] Heart Rate clarithromycin [From Biaxin] AdvReac Nausea Verified 11/01/16 20:18 clindamycin AdvReac Nausea Verified 11/01/16 20:18 levofloxacin [From Levaquin] AdvReac Nausea Verified 11/01/16 20:18 Morpholine Analogues AdvReac Confusion Verified 11/01/16 20:18 ranitidine HCl [From Zantac] AdvReac Unknown Verified 11/01/16 20:18 Review of Systems ROS Statement: Those systems with pertinent positive or pertinent negative responses have been documented in the HPI. ROS Other: All systems not noted in ROS Statement are negative. Past Medical History Past Medical History: Asthma, Coronary Artery Disease (CAD), Cancer, GI Bleed, Hypertension, Memory Impairment, Musculoskeletal Disorder, Osteoarthritis (OA), Pneumonia, Sleep Apnea/CPAP/BIPAP Additional Past Medical History / Comment(s): HX OF SLEEP APNEA (HAD SURGERY), Sjogren syndrome, RECTAL CANCER WITH COLOSTOMY , osteoporosis, anemia, OVER ACTIVE BLADDER, hx. L4 fracture, pneumonia in May 2014 BRONCH WASHING WAS POSITIVE FOR KLEBSIELLA PNUEMONAE., BACK PAIN History of Any Multi-Drug Resistant Organisms: ESBL Date of last positivie culture/infection: 06/08/2014 MDRO Source:: Bronch Fday-BPZP-Psreoqjccj pneumoniae Past Surgical History: Adenoidectomy, Appendectomy, Back Surgery, Bowel Resection, Breast Surgery, Heart Catheterization, Hysterectomy, Tonsillectomy, Uterine Ablation Additional Past Surgical History / Comment(s): PERMANENT COLOSTOMY. throat surgery removed uvula,L3-L4 two fractured vertebrae, sofi cataracts, kyphoplasty L4, PICCLINE IN MAY FOR ABX(PNE) SINCE REMOVED. Past Anesthesia/Blood Transfusion Reactions: No Reported Reaction Additional Past Anesthesia/Blood Transfusion Reaction / Comment(s): HX OF BLOOD TRANSFUSION Past Psychological History: No Psychological Hx Reported Smoking Status: Never smoker Past Alcohol Use History: Occasional Past Drug Use History: None Reported - Past Family History Mother History Unknown: Yes Family Medical History: Dialysis, Renal Disease Brother(s) History Unknown: Yes Family Medical History: No Reported History Sister(s) History Unknown: Yes Family Medical History: No Reported History Additional Family Medical History / Comment(s): Patient has 3 adopted kids. Father Family Medical History: Cancer, CVA/TIA Additional Family Medical History / Comment(s): 3 out of 4 siblings dx. autoimmune disease General Exam - General Exam Comments Initial Comments: General: The patient is awake and alert, in no distress, and does not appear acutely ill. Eye: Pupils are equal, round and reactive to light, extra-ocular movements are intact; there is normal conjunctiva bilaterally. No signs of icterus. Ears, nose, mouth and throat: There are moist mucous membranes and no oral lesions. Neck: The neck is supple, there is no tenderness. Cardiovascular: There is a regular rate and rhythm. No murmur, rub or gallop is appreciated. Respiratory: Lungs are clear to auscultation, respirations are non-labored, breath sounds are equal. No wheezes, stridor, rales, or rhonchi. Gastrointestinal: ostomy intact. Soft, distended, non-tender abdomen without masses or organomegaly noted. There is no rebound or guarding present. No CVA tenderness. Bowel sounds are unremarkable. Back: There is no tenderness to palpation in the midline. There is no obvious deformity. No rashes noted. Musculoskeletal: Normal ROM, no tenderness, There is no pedal edema. There is no calf tenderness or swelling. Sensation intact. Pulses equal bilaterally 2+. Neurological: CN II-XII intact, There are no obvious motor or sensory deficits. Coordination appears grossly intact. Speech is normal. Skin: Skin is warm and dry and no rashes or lesions are noted. Psychiatric: Cooperative, appropriate mood & affect, normal judgment. Limitations: no limitations Course Vital Signs 11/01/16 11/01/16 11/01/16 20:04 20:47 22:02 Temperature 98.6 F 97.8 F Pulse Rate 78 76 81 Respiratory 18 18 18 Rate Blood Pressure 169/70 150/72 156/74 O2 Sat by Pulse 94 L 95 98 Oximetry 11/01/16 23:08 Temperature Pulse Rate 78 Respiratory 16 Rate Blood Pressure 148/70 O2 Sat by Pulse 98 Oximetry Medical Decision Making - Medical Decision Making 81-year-old female presents to the department with a chief complaint of weakness and confusion. At this time patient's urine culture from previous visit does show Klebsiella. It is resistant to Bactrim when she was sent home on. This and will start gentamicin due to the culture from. We will also admit the patient due to her confusion with the continued UTI and weakness. The case is discussed with Dr. Freedman who does agree to the admission. - Lab Data Result diagrams: 11/01/16 20:52 11/01/16 20:52 Lab Results 11/01/16 11/01/16 11/01/16 Range/Units 20:52 20:52 20:52 WBC 8.0 (3.8-10.6) k/uL RBC 3.43 L (3.80-5.40) m/uL Hgb 11.0 L (11.4-16.0) gm/dL Hct 33.2 L (34.0-46.0) % MCV 96.7 (80.0-100.0) fL MCH 31.9 (25.0-35.0) pg MCHC 33.0 (31.0-37.0) g/dL RDW 13.4 (11.5-15.5) % Plt Count 128 L (150-450) k/uL Neutrophils % 75 % Lymphocytes % 10 % Monocytes % 7 % Eosinophils % 3 % Basophils % 0 % Neutrophils # 6.0 (1.3-7.7) k/uL Lymphocytes # 0.8 L (1.0-4.8) k/uL Monocytes # 0.6 (0-1.0) k/uL Eosinophils # 0.3 (0-0.7) k/uL Basophils # 0.0 (0-0.2) k/uL PT (9.0-12.0) sec INR (<1.2) APTT (22.0-30.0) sec Sodium 136 L (137-145) mmol/L Potassium 4.2 (3.5-5.1) mmol/L Chloride 110 H (98-107) mmol/L Carbon Dioxide 17 L (22-30) mmol/L Anion Gap 9 mmol/L BUN 24 H (7-17) mg/dL Creatinine 1.38 H (0.52-1.04) mg/dL Est GFR (MDRD) Af Amer 44 (>60 ml/min/1.73 sqM) Est GFR (MDRD) Non-Af 37 (>60 ml/min/1.73 sqM) Glucose 90 (74-99) mg/dL Calcium 8.4 (8.4-10.2) mg/dL Magnesium 1.9 (1.6-2.3) mg/dL Total Bilirubin 0.3 (0.2-1.3) mg/dL AST 27 (14-36) U/L ALT 24 (9-52) U/L Alkaline Phosphatase 82 (38-126) U/L Total Creatine Kinase 83 (30-135) U/L CK-MB (CK-2) 3.1 H* (0.0-2.4) ng/mL CK-MB (CK-2) Rel Index 3.7 Troponin I <0.012 (0.000-0.034) ng/mL Total Protein 6.0 L (6.3-8.2) g/dL Albumin 3.3 L (3.5-5.0) g/dL Amylase <30 L (30-110) U/L Lipase <10 L (23-300) U/L Urine Color Urine Appearance (Clear) Urine pH (5.0-8.0) Ur Specific [place] (1.001-1.035) Urine Protein (Negative) Urine Glucose (UA) (Negative) Urine Ketones (Negative) Urine Blood (Negative) Urine Nitrite (Negative) Urine Bilirubin (Negative) Urine Urobilinogen (<2.0) mg/dL Ur Leukocyte Esterase (Negative) Urine RBC (0-5) /hpf Urine WBC (0-5) /hpf Urine Bacteria (None) /hpf Hyaline Casts (0-2) /lpf Urine Mucus (None) /hpf 11/01/16 11/01/16 Range/Units 20:52 22:35 WBC (3.8-10.6) k/uL RBC (3.80-5.40) m/uL Hgb (11.4-16.0) gm/dL Hct (34.0-46.0) % MCV (80.0-100.0) fL MCH (25.0-35.0) pg MCHC (31.0-37.0) g/dL RDW (11.5-15.5) % Plt Count (150-450) k/uL Neutrophils % % Lymphocytes % % Monocytes % % Eosinophils % % Basophils % % Neutrophils # (1.3-7.7) k/uL Lymphocytes # (1.0-4.8) k/uL Monocytes # (0-1.0) k/uL Eosinophils # (0-0.7) k/uL Basophils # (0-0.2) k/uL PT 11.0 (9.0-12.0) sec INR 1.1 (<1.2) APTT 27.1 (22.0-30.0) sec Sodium (137-145) mmol/L Potassium (3.5-5.1) mmol/L Chloride (98-107) mmol/L Carbon Dioxide (22-30) mmol/L Anion Gap mmol/L BUN (7-17) mg/dL Creatinine (0.52-1.04) mg/dL Est GFR (MDRD) Af Amer (>60 ml/min/1.73 sqM) Est GFR (MDRD) Non-Af (>60 ml/min/1.73 sqM) Glucose (74-99) mg/dL Calcium (8.4-10.2) mg/dL Magnesium (1.6-2.3) mg/dL Total Bilirubin (0.2-1.3) mg/dL AST (14-36) U/L ALT (9-52) U/L Alkaline Phosphatase (38-126) U/L Total Creatine Kinase (30-135) U/L CK-MB (CK-2) (0.0-2.4) ng/mL CK-MB (CK-2) Rel Index Troponin I (0.000-0.034) ng/mL Total Protein (6.3-8.2) g/dL Albumin (3.5-5.0) g/dL Amylase (30-110) U/L Lipase (23-300) U/L Urine Color Yellow Urine Appearance Clear (Clear) Urine pH 5.5 (5.0-8.0) Ur Specific [place] 1.011 (1.001-1.035) Urine Protein Trace H (Negative) Urine Glucose (UA) Negative (Negative) Urine Ketones Negative (Negative) Urine Blood Negative (Negative) Urine Nitrite Negative (Negative) Urine Bilirubin Negative (Negative) Urine Urobilinogen <2.0 (<2.0) mg/dL Ur Leukocyte Esterase Large H (Negative) Urine RBC 3 (0-5) /hpf Urine WBC 33 H (0-5) /hpf Urine Bacteria Many H (None) /hpf Hyaline Casts 1 (0-2) /lpf Urine Mucus Rare H (None) /hpf - Radiology Data Radiology results: report reviewed, image reviewed Disposition Clinical Impression: UTI (urinary tract infection), Generalized weakness, Falls frequently, Failure of outpatient treatment, Renal cyst Disposition: ADMITTED IP TO THIS [facility] Condition: Stable Referrals: Shimon Garcia MD [Primary Care Provider] - 1-2 days Time of Disposition: 23:14 Decision Date: 11/01/16 Decision Time: 23:14
[2016-11-01 21:01] LABS: Basophils % (A) 0 %; CH 31.5; CHCM 32.8; Eosinophils # (A) 0.3 k/uL (0-0.7); Eosinophils % (A) 3 %; HCT 33.2 % (34.0-46.0); HDW 2.66; Luc % (Auto) 4; Lymphocytes # (A) 0.8 k/uL (1.0-4.8); Lymphocytes % (A) 10 %; MCH 31.9 pg (25.0-35.0); MCV 96.7 fL (80.0-100.0); Monocytes # (A) 0.6 k/uL (0-1.0); Monocytes % (A) 7 %; Neutrophils % (A) 75 %; RBC 3.43 m/uL (3.80-5.40); RDW 13.4 % (11.5-15.5); WBC (Perox) 7.72
[2016-11-01 21:10] LABS: Partial Thromboplastin Time 27.1 sec (22.0-30.0)
[2016-11-01 21:13] LABS: INR 1.1 (<1.2)
[2016-11-01 21:19] LABS: ALT 24 U/L (9-52); AST 27 U/L (14-36); Alkaline Phosphatase 82 U/L (38-126); Amylase <30 U/L (30-110); Anion Gap 9 mmol/L; Blood Urea Nitrogen 24 mg/dL (7-17); Calcium 8.4 mg/dL (8.4-10.2); Carbon Dioxide 17 mmol/L (22-30); Chloride 110 mmol/L (98-107); Creatine Kinase 83 U/L (30-135); Glucose 90 mg/dL (74-99); Magnesium 1.9 mg/dL (1.6-2.3); Non-African American GFR(MDRD) 37 (>60 ml/min/1.73 sqM); Potassium 4.2 mmol/L (3.5-5.1); Sodium 136 mmol/L (137-145); Total Bilirubin 0.3 mg/dL (0.2-1.3)
--- NOTE | 2016-11-01 21:22 | XR ---
EXAMINATION TYPE: XR chest 2V DATE OF EXAM: 11/01/2016 COMPARISON: 09/10/2016 HISTORY: 81-year-old female with chest pain TECHNIQUE: AP and lateral views FINDINGS: Multilevel vertebroplasty cement changes and multilevel vertebral compression deformities with accent uated lower thoracic kyphosis. Heart is upper limits of normal in size. Mild elongation/ectasia of th e thoracic aorta is similar. Prominent bands of atelectasis at the right mid and lower lung. Intersti tial prominence is relatively similar. No pleural effusion. IMPRESSION: 1. Prominent bands of atelectasis probably due to hypoventilatory changes. 2. Multilevel vertebral compression deformities and vertebroplasty changes at a few levels. Similar a ccentuated lower thoracic kyphosis.
[2016-11-01 21:31] LABS: Troponin I <0.012 ng/mL (0.000-0.034)
[2016-11-01 21:41] LABS: Creatine Kinase MB 3.1 ng/mL (0.0-2.4)
--- NOTE | 2016-11-01 22:13 | CT ---
EXAMINATION TYPE: CT abdomen pelvis wo con DATE OF EXAM: 11/01/2016 COMPARISON: 10/30/2016 and 03/20/2015 HISTORY: 81-year-old female with Generalized abdominal pain. CT DLP: 696.40 mGycm. Automated exposure control for dose reduction was used. TECHNIQUE: Contiguous axial scanning of the abdomen and pelvis without IV contrast. Coronal and sagit daniel reconstructions performed. FINDINGS: Heart is upper limits of normal in size without pericardial effusion. Coronary vessel calcifications are remarkable for coronary artery disease. Large caliber to the visualized right main pulmonary henrik ry at 3.0 cm. A few calcified granulomas in the right lung with streaky areas of atelectasis or scarr ing. Calcified right hilar lymph nodes are also noted. Small 6 mm noncalcified right middle lobe pulm onary nodule also probably relates to prior granulomatous disease. No pleural effusion. Tiny hiatal hernia suggested. Noncontrast images of the liver show a couple calcified granulomas. Gallbladder, adrenal glands, right kidney, atrophic pancreas show no gross abnormality. Stable intrahepatic and extrahepatic biliary ductal dilatation likely acceptable limits for patient's age. Subcentimeter hypodensity lower pole left kidney not clearly seen on 03/20/2015 and can be reas sessed with a 6 month follow-up ultrasound. Calcified granulomas in the spleen. Moderate atherosclerotic calcifications within the abdominal aorta and iliac arteries. Prior mesh repair along the left anterior abdominal wall. No dilated small bowel, free fluid, or free air. Appears to be a right-sided sigmoid colostomy. The cecum hangs low and there is a large 11.3 cm wide parastomal hernia containing the splenic flexure, similar to prior exam. Moderate overall stool burde n. No obstructive changes are evident. No mesenteric or retroperitoneal lymphadenopathy. Prominent urinary bladder distention. Bones: Mild degenerative changes of the hips. Vertebroplasty changes are noted in the spine with mult iple severe vertebral compression deformities. T9 vertebral compression deformity has progressed as c ompared to 08/13/2016 and may represent a subacute injury. Mild paravertebral soft tissue thickening. IMPRESSION: 1. T9 vertebral compression collapse has progressed from 08/13/2016 and may represent a subacute inju ry given mild paravertebral soft tissue swelling. 2. Multiple additional vertebral compression collapse is stable. 3. Redemonstrated right-sided sigmoid colostomy with large 11.3 cm wide parastomal hernia containing the hepatic flexure. No obstructive changes. Moderate stool burden. 4. Subcentimeter hypodensity lower pole left kidney does not seem to have been present in 2015. Geovany mmend 6 month follow-up renal ultrasound to exclude an enlarging lesion. 5. Pulmonary hypertension suggested.
[2016-11-01] MEDS ORDERED: GENTAMICIN PER PHARMACY MISCELLANE SCH (22:45)
[2016-11-01 23:01] LABS: Appearance,Urine Clear (Clear); Bacteria,Urine Many /hpf; Bilirubin,Urine Negative (Negative); Glucose,Urine (UA) Negative (Negative); Ketones,Urine Negative (Negative); Leukocyte Esterase,Urine Large (Negative); Mucus,Urine Rare /hpf; Nitrite,Urine Negative (Negative); PH, Urine 5.5 (5.0-8.0); Particle Count 23415; Protein,Urine Trace (Negative); RBC,Urine 3 /hpf (0-5); Specific Gravity,Urine 1.011 (1.001-1.035); UA Billing (MACRO vs. MICRO) MICRO; Urobilinogen,Urine <2.0 mg/dL (<2.0); WBC,Urine 33 /hpf (0-5)
[2016-11-01] MEDS ORDERED: ONDANSETRON 4 MG/2 ML VIAL IVP PRN (23:15)
[2016-11-01] MEDS ORDERED: NALOXONE 0.4 MG/ML 1 ML VIAL IV PRN (23:15)
[2016-11-01] MEDS ORDERED: ALPRAZolam 0.25 MG TAB PO PRN (23:16)
[2016-11-02] MEDS ORDERED: GENTAMICIN 140 MG in SODIUM CHLORIDE 0.9% 100 ML IVPB ONE ×2
[2016-11-02] MEDS: SODIUM CHLORIDE 0.45% 1,000 ML IV SCH ×3 (00:14→19:40)
[2016-11-02 02:35] VITALS: BMI 20.6
[2016-11-02 08:41] LABS: Basophils % (A) 0 %; CH 31.5; CHCM 31.6; Eosinophils # (A) 0.2 k/uL (0-0.7); Eosinophils % (A) 3 %; HCT 32.7 % (34.0-46.0); HDW 2.56; HGB 10.5 gm/dL (11.4-16.0); Hypochromasia Slight; Luc # (Auto) 0.19; Luc % (Auto) 3; Lymphocytes # (A) 0.7 k/uL (1.0-4.8); Lymphocytes % (A) 10 %; MCH 32.3 pg (25.0-35.0); MCHC 32.2 g/dL (31.0-37.0); MCV 100.3 fL (80.0-100.0); Mean Platelet Volume 7.3; Monocytes # (A) 0.5 k/uL (0-1.0); Monocytes % (A) 6 %; Neutrophils # (A) 5.9 k/uL (1.3-7.7); Neutrophils % (A) 79 %; RBC 3.26 m/uL (3.80-5.40); RDW 13.2 % (11.5-15.5); WBC 7.4 k/uL (3.8-10.6); WBC (Perox) 7.87
[2016-11-02] MEDS: PANTOPRAZOLE 40 MG TABLET PO SCH (08:53)
[2016-11-02] MEDS: CHOLECALCIFEROL 1,000 UNIT TAB PO SCH (08:53)
[2016-11-02] MEDS: ASCORBIC ACID 500 MG TAB PO SCH (08:53)
[2016-11-02] MEDS: OXYBUTYNIN XL 5 MG TAB.ER.24 PO SCH (08:54)
[2016-11-02] MEDS: METOPROLOL SUCCINATE (ER) 50 MG TAB.ER.24H PO SCH (08:54)
[2016-11-02] MEDS: LISINOPRIL 20 MG TAB PO SCH (08:54)
[2016-11-02] MEDS: ESCITALOPRAM 10 MG TAB PO SCH (08:54)
[2016-11-02] MEDS: ISOSORBIDE MONONITRATE ER 60 MG TAB.ER.24H PO SCH (08:54)
[2016-11-02] MEDS: PHENAZOPYRIDINE 100 MG TAB PO SCH ×3 (08:55→22:50)
[2016-11-02] MEDS: VIT A,C & E-LUTEIN-MINERALS 1 EACH TAB PO SCH (08:55)
[2016-11-02] MEDS: PILOCARPINE 5 MG TAB PO SCH ×2 (08:55→21:38)
[2016-11-02 09:06] LABS: ALT 26 U/L (9-52); AST 23 U/L (14-36); Alkaline Phosphatase 83 U/L (38-126); Anion Gap 9 mmol/L; Blood Urea Nitrogen 18 mg/dL (7-17); Calcium 8.3 mg/dL (8.4-10.2); Carbon Dioxide 16 mmol/L (22-30); Chloride 114 mmol/L (98-107); Glucose 80 mg/dL (74-99); Non-African American GFR(MDRD) 54 (>60 ml/min/1.73 sqM); Potassium 4.5 mmol/L (3.5-5.1); Sodium 139 mmol/L (137-145); Total Bilirubin 0.4 mg/dL (0.2-1.3); Total Protein 5.5 g/dL (6.3-8.2)
[2016-11-02] MEDS: MEROPENEM 1 GM in SODIUM CHLORIDE 0.9% 100 ML IVPB SCH ×2 (14:40→21:37)
[2016-11-02] MEDS ORDERED: NON-FORMULARY DRUG (Ubidecarenone [Co Q-10] 100 MG) PO SCH (17:30)
[2016-11-02] MEDS: MULTIVITAMINS, THERA 1 EACH TAB PO SCH (17:37)
[2016-11-02] MEDS: OLANZapine 10 MG TAB PO SCH (17:37)
--- NOTE | 2016-11-02 18:17 | P.HPIM ---
History of Present Illness Chief Complaint: Mental status changes and weakness 79-year-old female one of Dr. Garcia's patient with past medical history of asthma, CAD with ischemic cardiomyopathy, previous history of lung cancer post resection who is known to have severe lower back pain. Patient had back surgery in May [address] 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 Patient also has diminished appetite and weight loss, In emergency room urinalysis was significant to show pyuria, BUN slightly elevated 24 with a creatinine 1.38 from a previous of 0.93 in February 2016, patient did not show any hypotensive events or hemodynamic instability on admission. Today she was subsequently transferred to the medical floor for ESBL UTI, patient was started initially on gentamicin which was transitioned to meropenem with consultation to Dr. Grace, renal ultrasound will be obtained along with blood cultures Review of Systems Constitutional: Reports as per HPI, Reports lethargy, Reports malaise, Reports weakness, Denies anorexia, Denies chills, Denies chronic headaches, Denies chronic pain, Denies daytime sleepiness, Denies fatigue, Denies fever, Denies night sweats, Denies poor appetite, Denies sweats, Denies weight gain, Denies weight loss Ears, nose, mouth and throat: Reports as per HPI, Denies ant. neck pain, Denies bleeding gums, Denies dental pain, Denies dysphagia, Denies epistaxis, Denies headache, Denies hoarseness, Denies mouth pain, Denies nasal congestion, Denies nasal discharge, Denies neck fullness/pressure, Denies neck lump, Denies nose pain, Denies odynophagia, Denies post-nasal drip, Denies sinus pain, Denies sinus pressure, Denies swelling in mouth, Denies swelling in throat, Denies sore throat, Denies vertigo, Denies voice changes Cardiovascular: Reports as per HPI, Denies chest pain, Denies claudication, Denies decreased exercise tolerance, Denies dyspnea on exertion, Denies edema, Denies high blood pressure, Denies irregular heart beat, Denies leg edema, Denies lightheadedness, Denies orthopnea, Denies palpitations, Denies paroxysmal nocturnal dyspnea, Denies phlebitis, Denies rapid heart beat, Denies shortness of breath, Denies syncope Respiratory: Reports as per HPI, Denies congestion, Denies cough, Denies cough with sputum, Denies dyspnea, Denies excessive sputum, Denies hemoptysis, Denies home oxygen, Denies pain, Denies pain on inspiration, Denies pleurisy, Denies respiratory infections, Denies sleep apnea, Denies snoring, Denies wheezing Gastrointestinal: Reports as per HPI Genitourinary: Reports as per HPI, Denies abnormal vaginal bleeding, Denies decreased libido, Denies difficulty conceiving, Denies difficulty voiding, Denies dysmenorrhea, Denies dyspareunia, Denies dysuria, Denies flank pain, Denies genital sores, Denies hematuria, Denies hot flashes, Denies incomplete emptying, Denies kidney stones, Denies menorrhagia, Denies mixed incontinence, Denies nocturia, Denies pelvic pain, Denies post void dribbling, Denies , Denies prolapse symptoms, Denies stress incontinence, Denies urge incontinence , Denies urgency, Denies urinary frequency, Denies vaginal discharge, Denies vaginal dryness, Denies vaginal itching, Denies vaginal odor Menstruation: Reports as per HPI, Denies amenorrhea, Denies amenorrhea on BC, Denies currently menstrual, Denies cycle < 21 days, Denies cycle > 35 days, Denies cycle variable, Denies menses 1-7 days, Denies menses 8 or > days, Denies menses variable, Denies period heavy, Denies period light, Denies period normal, Denies period spotting, Denies post hysterectomy, Denies postmenopausal , Denies premenarcheal Musculoskeletal: Reports as per HPI, Reports frequent falls, Reports gait dysfunction, Reports limitation of motion, Reports muscle cramps, Denies arm numbness/tingling, Denies atrophy, Denies fractures, Denies hot joints, Denies leg numbness/tingling, Denies loss of height, Denies low back pain, Denies morning stiffness, Denies muscle weakness, Denies myalgias, Denies neck pain, Denies neck stiffness, Denies prior amputations, Denies redness of joints, Denies shooting arm pain, Denies shooting leg pain Integumentary: Reports as per HPI, Denies acne, Denies boils, Denies brittle nails, Denies change in hair/nails, Denies color changes, Denies darkening of skin, Denies depigmentation, Denies dryness, Denies foot/leg ulcers, Denies growths, Denies hirsutism, Denies lesions, Denies onychomycosis, Denies pruritus , Denies rash, Denies sores, Denies striae, Denies unusual bruising, Denies wounds Neurological: Reports as per HPI, Denies aphasia, Denies ataxia, Denies balance difficulties, Denies burning pain, Denies change in mentation, Denies change in smell/taste, Denies change in speech, Denies confusion, Denies convulsions, Denies double vision, Denies gait dysfunction, Denies head injury, Denies headaches, Denies hearing difficulties, Denies lack of coordination, Denies loss of vision, Denies memory loss, Denies migraines, Denies motor disturbance, Denies numbness, Denies paralysis, Denies paresthesias, Denies seizures, Denies sensory deficit, Denies spasticity, Denies syncope, Denies tic, Denies tingling , Denies transient paralysis, Denies tremors, Denies vertigo, Denies weakness, Denies visual changes Psychiatric: Reports as per HPI, Denies anhedonia, Denies anxiety, Denies anxiety attacks, Denies change in appetite, Denies change in libido, Denies change in sleep habits, Denies confusion, Denies depression, Denies difficulty concentrating, Denies disorientation, Denies hallucinations, Denies hopelessness , Denies hypersomnia, Denies insomnia, Denies irritability, Denies memory loss, Denies mood swings, Denies paranoia, Denies sadness/tearfulness, Denies sleep disturbances, Denies suicidal ideation Endocrine: Reports as per HPI, Denies cold intolerance, Denies deepening of the voice, Denies excessive sweating, Denies excessive thirst, Denies fatigue, Denies flushing, Denies heat intolerance, Denies high blood sugars, Denies increase in ring/shoe/hat size, Denies low blood sugars, Denies nocturia, Denies palpitations, Denies polydipsia, Denies polyphagia, Denies polyuria, Denies proptosis, Denies recent glucocorticoid use, Denies thyroid mass, Denies weight change Hematologic/Lymphatic: Reports as per HPI Allergic/Immunologic: Reports as per HPI, Denies allergic rhinitis, Denies anaphylaxis, Denies angioedema, Denies gluten intolerance, Denies persistent infections, Denies seasonal allergies, Denies urticaria, Denies wheezing Past Medical History Past Medical History: Asthma, Coronary Artery Disease (CAD), Cancer, GI Bleed, Hypertension, Memory Impairment, Musculoskeletal Disorder, Osteoarthritis (OA), Pneumonia, Sleep Apnea/CPAP/BIPAP Additional Past Medical History / Comment(s): HX OF SLEEP APNEA (HAD SURGERY), Sjogren syndrome, RECTAL CANCER WITH COLOSTOMY , osteoporosis, anemia, OVER ACTIVE BLADDER, hx. L4 fracture, pneumonia in May 2014 BRONCH WASHING WAS POSITIVE FOR KLEBSIELLA PNUEMONAE., BACK PAIN History of Any Multi-Drug Resistant Organisms: ESBL Date of last positivie culture/infection: 06/08/2014 MDRO Source:: Bronch [id number]-Xhivxaxscm pneumoniae Past Surgical History: Adenoidectomy, Appendectomy, Back Surgery, Bowel Resection, Breast Surgery, Heart Catheterization, Hysterectomy, Tonsillectomy, Uterine Ablation Additional Past Surgical History / Comment(s): PERMANENT COLOSTOMY. throat surgery removed uvula,L3-L4 two fractured vertebrae, sofi cataracts, kyphoplasty L4, PICCLINE IN MAY FOR ABX(PNE) SINCE REMOVED. Past Anesthesia/Blood Transfusion Reactions: No Reported Reaction Additional Past Anesthesia/Blood Transfusion Reaction / Comment(s): HX OF BLOOD TRANSFUSION Past Psychological History: No Psychological Hx Reported Smoking Status: Never smoker Past Alcohol Use History: Occasional Past Drug Use History: None Reported - Past Family History Mother History Unknown: Yes Family Medical History: Dialysis, Renal Disease Brother(s) History Unknown: Yes Family Medical History: No Reported History Sister(s) History Unknown: Yes Family Medical History: No Reported History Additional Family Medical History / Comment(s): Patient has 3 adopted kids. Father Family Medical History: Cancer, CVA/TIA Additional Family Medical History / Comment(s): 3 out of 4 siblings dx. autoimmune disease Medications and Allergies Home Medications Medication Instructions Recorded Confirmed Type Isosorbide Mononitrate [Imdur] 60 mg PO QAM 07/29/13 11/01/16 History Pilocarpine HCl [Salagen] 7.5 mg PO BID 07/29/13 11/01/16 History L.acidoph/B.long/L.plant/B.lac 1 cap PO W/SUPPER 05/09/14 11/01/16 History [Probiotic Acidophilus Beads] Tolterodine Tartrate [Detrol LA] 4 mg PO QAM 05/09/14 11/01/16 History Multivitamins, Thera [Multivitamin 1 tab PO W/SUPPER 03/01/15 11/01/16 History (formulary)] Vit C/E/Zn/Coppr/Lutein/Zeaxan 2 cap PO DAILY 03/14/15 11/01/16 History [Preservision Areds 2 Softgel] Escitalopram [Lexapro] 10 mg PO DAILY 08/29/15 11/01/16 History OLANZapine [ZyPREXA] 10 mg PO PC-SUPPER 08/29/15 11/01/16 History ALPRAZolam [Xanax] 0.25 mg PO BID PRN 11/19/15 11/01/16 History Ascorbic Acid [Vitamin C] 500 mg PO DAILY 10/30/16 11/01/16 History Cholecalciferol [Vitamin D3] 1,000 unit PO DAILY 10/30/16 11/01/16 History Lansoprazole [Prevacid] 15 mg PO DAILY 10/30/16 11/01/16 History Lisinopril 40 mg PO DAILY 10/30/16 11/01/16 History Ubidecarenone [Co Q-10] 100 mg PO W/SUPPER 10/30/16 11/01/16 History Allergies Allergy/AdvReac Type Severity Reaction Status Date / Time aspirin Allergy Anaphylaxis Verified 11/01/16 20:18 caffeine Allergy Unknown Verified 11/01/16 20:18 celecoxib [From Celebrex] Allergy Rash/Hives Verified 11/01/16 20:18 codeine Allergy Anaphylaxis Verified 11/01/16 20:18 doxycycline Allergy Unknown Verified 11/01/16 20:18 hydrocodone bitartrate Allergy Unknown Verified 11/01/16 20:18 [From [place]] milk Allergy Unknown Verified 11/01/16 20:18 Penicillins Allergy Rash/Hives Verified 11/01/16 20:18 rofecoxib [From Vioxx] Allergy Rash/Hives Verified 11/01/16 20:18 albuterol [From Ventolin HFA] AdvReac Unknown Verified 11/01/16 20:18 albuterol sulfate AdvReac Rapid Verified 11/01/16 20:18 [From Ventolin HFA] Heart Rate clarithromycin [From Biaxin] AdvReac Nausea Verified 11/01/16 20:18 clindamycin AdvReac Nausea Verified 11/01/16 20:18 levofloxacin [From Levaquin] AdvReac Nausea Verified 11/01/16 20:18 Morpholine Analogues AdvReac Confusion Verified 11/01/16 20:18 ranitidine HCl [From Zantac] AdvReac Unknown Verified 11/01/16 20:18 Physical Exam Vitals: Vital Signs Temp Pulse Pulse Resp BP BP Pulse Ox 11/02/16 07:00 98.6 F 90 16 164/82 95 11/02/16 01:00 97.2 F L 77 20 140/75 100 11/02/16 00:17 97.7 F 79 18 155/71 100 11/01/16 23:08 78 16 148/70 98 11/01/16 22:02 97.8 F 81 18 156/74 98 11/01/16 20:47 76 18 150/72 95 11/01/16 20:04 98.6 F 78 18 169/70 94 L Intake and Output 11/01/16 11/02/16 11/02/16 22:59 06:59 14:59 Intake Total 200 320 Balance 200 320 Intake: Oral 200 320 Other: Voiding Method Bedpan # Voids 2 Weight 56.245 kg 58.967 kg - Constitutional General appearance: cooperative, no acute distress - EENT Eyes: anicteric sclerae, EOMI, PERRLA, dentition normal ENT: hard of hearing, NA/AT, normal oropharynx - Neck Neck: normal ROM - Respiratory Respiratory: bilateral: CTA, negative: diminished, dullness, wheezing - Cardiovascular Rhythm: regular Heart sounds: normal: S1, S2 Abnormal Heart Sounds: no systolic murmur, no diastolic murmur, no rub, no S3 Gallop, no S4 Gallop, no click, no other - Gastrointestinal General gastrointestinal: soft - Integumentary Integumentary: normal, normal turgor - Neurologic Neurologic: CNII-XII intact - Musculoskeletal Musculoskeletal: gait normal, strength equal bilaterally - Psychiatric Psychiatric: A&O x's 3, appropriate affect, intact judgment & insight Results CBC & Chem 7: 11/02/16 08:25 11/02/16 08:25 Labs: Abnormal Lab Results - Last 24 Hours (Table) 11/01/16 11/01/16 11/01/16 Range/Units 20:52 20:52 20:52 RBC 3.43 L (3.80-5.40) m/uL Hgb 11.0 L (11.4-16.0) gm/dL Hct 33.2 L (34.0-46.0) % MCV (80.0-100.0) fL Plt Count 128 L (150-450) k/uL Lymphocytes # 0.8 L (1.0-4.8) k/uL Sodium 136 L (137-145) mmol/L Chloride 110 H (98-107) mmol/L Carbon Dioxide 17 L (22-30) mmol/L BUN 24 H (7-17) mg/dL Creatinine 1.38 H (0.52-1.04) mg/dL Calcium (8.4-10.2) mg/dL CK-MB (CK-2) 3.1 H* (0.0-2.4) ng/mL Total Protein 6.0 L (6.3-8.2) g/dL Albumin 3.3 L (3.5-5.0) g/dL Amylase <30 L (30-110) U/L Lipase <10 L (23-300) U/L Urine Protein (Negative) Ur Leukocyte Esterase (Negative) Urine WBC (0-5) /hpf Urine Bacteria (None) /hpf Urine Mucus (None) /hpf 11/01/16 11/02/16 11/02/16 Range/Units 22:35 08:25 08:25 RBC 3.26 L (3.80-5.40) m/uL Hgb 10.5 L (11.4-16.0) gm/dL Hct 32.7 L (34.0-46.0) % MCV 100.3 H (80.0-100.0) fL Plt Count 124 L (150-450) k/uL Lymphocytes # 0.7 L (1.0-4.8) k/uL Sodium (137-145) mmol/L Chloride 114 H (98-107) mmol/L Carbon Dioxide 16 L (22-30) mmol/L BUN 18 H (7-17) mg/dL Creatinine (0.52-1.04) mg/dL Calcium 8.3 L (8.4-10.2) mg/dL CK-MB (CK-2) (0.0-2.4) ng/mL Total Protein 5.5 L (6.3-8.2) g/dL Albumin 3.1 L (3.5-5.0) g/dL Amylase (30-110) U/L Lipase (23-300) U/L Urine Protein Trace H (Negative) Ur Leukocyte Esterase Large H (Negative) Urine WBC 33 H (0-5) /hpf Urine Bacteria Many H (None) /hpf Urine Mucus Rare H (None) /hpf Thrombosis Risk Factor Assmnt - DVT/VTE Prophylaxis DVT/VTE Prophylaxis: Pharmacologic Prophylaxis ordered - Choose All That Apply Each Factor Represents 1 point: Medical pt on bed rest, Swollen legs (current) Each Risk Factor Represents 3 Points: Age 75 years or older Thrombosis Risk Factor Assessment Total Risk Factor Score: 5 Thrombosis Risk Factor Assessment Level: High Risk Assessment and Plan Plan: 1. Acute urinary tract infection with metabolic encephalopathy, UTI growing ESBL 10/30/2016, patient will be seen consultation with Dr. Grace for antibiotic management, patient currently is on meropenem 1 g every 12 hours, blood cultures are currently pending updated cultures are currently pending next 2. Acute on chronic kidney failure CK D stage II, patient will be hydrated at this time monitor labs, nephrotoxins will be avoided 3. CAD and severe ischemic cardiomyopathy with low ejection fraction of 50%: Patient has been on metoprolol and isosorbide. 4. Hypertension well controlled on metoprolol, lisinopril. 5. Sjogren syndrome: Patient using Salagen and Restasis eyedrops. Continue PreserVision 6. Chronic anemia history of GI bleed without any recent bleeding. 7. Chronic pain syndrome: Has been on fentanyl patch 12 g per hour. 8. Overactive bladder: Has been on Detrol. 9. Mild memory loss: No change remain on conservative management. 10. Mild elevation of AST and ALT. Recheck tomorrow.. 11. DVT prophylaxis: Patient will be on heparin subcutaneous. 12. GI prophylaxis. Protonix 40 mg orally once every day. 13. Acute debility with recent urinary tract infection, patient was seen by physical therapy as well, patient might need subacute or home therapies Patient will be admitted to hospital for a minimum of 2 nights stay. Discharge plan: Most likely return home.
[2016-11-02] MEDS: LACTOBACILLUS ACIDOPH & BULGAR 1 EACH PACKET PO SCH (19:38)
--- NOTE | 2016-11-02 22:49 | P.CONS ---
History of Present Illness - Reason for Consult Consult date: 11/02/16 - Chief Complaint Altered mental status - History of Present Illness 81-year-old female who is cared for by the family and the home was having increasing difficulties with weakness, worsening hallucinations. She was not feeling well for a few days. Her status worsened to the point where she was not able to ambulate and the called EMS to have her transported to hospital. In the emergency center there was evidence of sepsis from a urinary tract infection and she was admitted. No other evidence of an ESBL urinary tract infection the infectious diseases consultation was requested. The patient remains confused and is a poor historian. The and son are quite helpful. She is having difficulties with multiple urinary tract infections over time. Over the last 6 months has just not been doing as well as she had in the past. She has intermittent hallucinations. Thought to be in the basis of medications, per aggressive disease and recurrent urinary tract infections. Review of Systems ROS unobtainable: due to mental status (But the family relates that she's had markedly increased generalized weakness, to the point in time she was not really able to walk. She had worsening mental status, was not eating well and was having increasing difficulties with some hallucinations.) Past Medical History Past Medical History: Asthma, Coronary Artery Disease (CAD), Cancer, GI Bleed, Hypertension, Memory Impairment, Musculoskeletal Disorder, Osteoarthritis (OA), Pneumonia, Sleep Apnea/CPAP/BIPAP Additional Past Medical History / Comment(s): HX OF SLEEP APNEA (HAD SURGERY), Sjogren syndrome, RECTAL CANCER WITH COLOSTOMY , osteoporosis, anemia, OVER ACTIVE BLADDER, hx. L4 fracture, pneumonia in May 2014 BRONCH WASHING WAS POSITIVE FOR KLEBSIELLA PNUEMONAE., BACK PAIN History of Any Multi-Drug Resistant Organisms: ESBL Year Discovered:: 06/08/2014 MDRO Source:: Bronch Wyrd-TXEC-Wyaraorcyo pneumoniae Past Surgical History: Adenoidectomy, Appendectomy, Back Surgery, Bowel Resection, Breast Surgery, Heart Catheterization, Hysterectomy, Tonsillectomy, Uterine Ablation Additional Past Surgical History / Comment(s): PERMANENT COLOSTOMY. throat surgery removed uvula,L3-L4 two fractured vertebrae, sofi cataracts, kyphoplasty L4, PICCLINE IN MAY FOR ABX(PNE) SINCE REMOVED. Past Anesthesia/Blood Transfusion Reactions: No Reported Reaction Additional Past Anesthesia/Blood Transfusion Reaction / Comm: HX OF BLOOD TRANSFUSION Past Psychological History: No Psychological Hx Reported Additional Psychological History / Comment(s): cared for in the family home by the and children. Retired. No experience. No international travel. No tobacco or alcohol use. No animal exposures Smoking Status: Never smoker Past Alcohol Use History: Occasional Past Drug Use History: None Reported - Past Family History Mother History Unknown: Yes Family Medical History: Dialysis, Renal Disease Brother(s) History Unknown: Yes Family Medical History: No Reported History Sister(s) History Unknown: Yes Family Medical History: No Reported History Additional Family Medical History / Comment(s): Patient has 3 adopted kids. Father Family Medical History: Cancer, CVA/TIA Additional Family Medical History / Comment(s): 3 out of 4 siblings dx. autoimmune disease Medications and Allergies Home Medications and Allergies Comment(s): Current Medications Acetaminophen (Tylenol Tab) 650 mg PO Q6HR PRN PRN Reason: Mild Pain or Fever > 100.5 Alprazolam (Xanax) 0.25 mg PO BID PRN PRN Reason: Anxiety Ascorbic Acid (Vitamin C) 500 mg PO DAILY [facility] Last Admin: 11/02/16 08:53 Dose: 500 mg Cholecalciferol (Vitamin D3) 1,000 unit PO DAILY [facility] Last Admin: 11/02/16 08:53 Dose: 1,000 unit Escitalopram Oxalate (Lexapro) 10 mg PO DAILY [facility] Last Admin: 11/02/16 08:54 Dose: 10 mg Sodium Chloride (Saline 0.45%) 1,000 mls @ 100 mls/hr IV .Q10H [facility] Last Admin: 11/02/16 19:40 Dose: 100 mls/hr Meropenem 1 gm/ Sodium (Chloride) 100 mls @ 200 mls/hr IVPB Q12HR [facility] Last Admin: 11/02/16 21:37 Dose: 200 mls/hr Isosorbide Mononitrate (Imdur) 60 mg PO QAM [facility] Last Admin: 11/02/16 08:54 Dose: 60 mg Lactobacillus Acidoph/Bulgaricus (Lactinex) 1 each PO W/SUPPER [facility] Last Admin: 11/02/16 19:38 Dose: 1 each Lisinopril (Zestril) 40 mg PO DAILY [facility] Last Admin: 11/02/16 08:54 Dose: 40 mg Metoprolol Succinate (Toprol Xl) 150 mg PO DAILY [facility] Last Admin: 11/02/16 08:54 Dose: 150 mg Multivitamins (Theragran) 1 each PO W/SUPPER [facility] Last Admin: 11/02/16 17:37 Dose: 1 each Multivitamins/Minerals (Ivite) 2 each PO DAILY [facility] Last Admin: 11/02/16 08:55 Dose: 2 each Naloxone HCl (Narcan) 0.2 mg IV Q2M PRN PRN Reason: Opioid Reversal Olanzapine (Zyprexa) 10 mg PO PC-SUPPER [facility] Last Admin: 11/02/16 17:37 Dose: 10 mg Ondansetron HCl (Zofran) 4 mg IVP Q8HR PRN PRN Reason: Nausea And Vomiting Oxybutynin Chloride (Ditropan Xl) 5 mg PO QAM [facility] Last Admin: 11/02/16 08:54 Dose: 5 mg Pantoprazole Sodium (Protonix) 40 mg PO AC-BRKFST [facility] Last Admin: 11/02/16 08:53 Dose: 40 mg Phenazopyridine HCl (Pyridium) 100 mg PO TID [facility] Last Admin: 11/02/16 16:05 Dose: 100 mg Pilocarpine HCl (Salagen) 7.5 mg PO BID [facility] Last Admin: 11/02/16 21:38 Dose: 7.5 mg Home Medications Medication Instructions Recorded Confirmed Type Isosorbide Mononitrate [Imdur] 60 mg PO QA 07/29/13 11/01/16 History Pilocarpine HCl [Salagen] 7.5 mg PO BID 07/29/13 11/01/16 History L.acidoph/B.long/L.plant/B.lac 1 cap PO W/SUPPER 05/09/14 11/01/16 History [Probiotic Acidophilus Beads] Tolterodine Tartrate [Detrol LA] 4 mg PO QA 05/09/14 11/01/16 History Multivitamins, Thera [Multivitamin 1 tab PO W/SUPPER 03/01/15 11/01/16 History (formulary)] Vit C/E/Zn/Coppr/Lutein/Zeaxan 2 cap PO DAILY 03/14/15 11/01/16 History [Preservision Areds 2 Softgel] Escitalopram [Lexapro] 10 mg PO DAILY 08/29/15 11/01/16 History OLANZapine [ZyPREXA] 10 mg PO PC-SUPPER 08/29/15 11/01/16 History ALPRAZolam [Xanax] 0.25 mg PO BID PRN 11/19/15 11/01/16 History Ascorbic Acid [Vitamin C] 500 mg PO DAILY 10/30/16 11/01/16 History Cholecalciferol [Vitamin D3] 1,000 unit PO DAILY 10/30/16 11/01/16 History Lansoprazole [Prevacid] 15 mg PO DAILY 10/30/16 11/01/16 History Lisinopril 40 mg PO DAILY 10/30/16 11/01/16 History Ubidecarenone [Co Q-10] 100 mg PO W/SUPPER 10/30/16 11/01/16 History Allergies Allergy/AdvReac Type Severity Reaction Status Date / Time aspirin Allergy Anaphylaxis Verified 11/01/16 20:18 caffeine Allergy Unknown Verified 11/01/16 20:18 celecoxib [From Celebrex] Allergy Rash/Hives Verified 11/01/16 20:18 codeine Allergy Anaphylaxis Verified 11/01/16 20:18 doxycycline Allergy Unknown Verified 11/01/16 20:18 hydrocodone bitartrate Allergy Unknown Verified 11/01/16 20:18 [From [place]] milk Allergy Unknown Verified 11/01/16 20:18 Penicillins Allergy Rash/Hives Verified 11/01/16 20:18 rofecoxib [From Vioxx] Allergy Rash/Hives Verified 11/01/16 20:18 albuterol [From Ventolin HFA] AdvReac Unknown Verified 11/01/16 20:18 albuterol sulfate AdvReac Rapid Verified 11/01/16 20:18 [From Ventolin HFA] Heart Rate clarithromycin [From Biaxin] AdvReac Nausea Verified 11/01/16 20:18 clindamycin AdvReac Nausea Verified 11/01/16 20:18 levofloxacin [From Levaquin] AdvReac Nausea Verified 11/01/16 20:18 Morpholine Analogues AdvReac Confusion Verified 11/01/16 20:18 ranitidine HCl [From Zantac] AdvReac Unknown Verified 11/01/16 20:18 Physical Exam Vitals: Vital Signs Temp Pulse Pulse Resp BP BP Pulse Ox 11/02/16 15:00 99.0 F 83 16 127/72 96 11/02/16 07:00 98.6 F 90 16 164/82 95 11/02/16 01:00 97.2 F L 77 20 140/75 100 11/02/16 00:17 97.7 F 79 18 155/71 100 11/01/16 23:08 78 16 148/70 98 Intake and Output 11/02/16 11/02/16 11/02/16 06:59 14:59 22:59 Intake Total 200 320 Balance 200 320 Intake: Oral 200 320 Other: Voiding Method Bedpan Bedpan Bedside Commode Incontinent # Voids 2 1 # Bowel Movements 1 1 Weight 58.967 kg 81-year-old female who is comfortable but a poor historian HEENT: Anicteric conjunctiva are pink and moist nasal mucosa grossly intact without significant lesions, there is no thrush. Oral cavity is dry Neck: The neck is supple without significant lymphadenopathy or thyromegaly. Lungs: Symmetrical air entry. Few basilar crackles are heard. Heart: Irregular with a soft S4 There is no significant murmur click or rub, PMI was nondisplaced. Abdomen: Ostomy is noted to be in place and functioning well. Extensive abdominal wall herniation is noted that his peristomal in nature Positive bowel sounds soft and nontender without palpable masses or organomegaly. There was no guarding or rebound. Extremities: The upper extremities have equal pulses they are symmetric, no significant petechiae or telangiectasia. No splinter hemorrhages were noted. Lower extremities have some trace edema. Evidence of some bruising apparently from recent fall Neuro: She is arousable, she is oriented to person only, attempts to answer questions but has a bit of echolalia however is able to move extremities spontaneously, no erica hallucinations at this time Results CBC & Chem 7: 11/02/16 08:25 11/02/16 08:25 Labs: Abnormal Lab Results - Last 24 Hours (Table) 11/01/16 11/02/16 11/02/16 Range/Units 22:35 08:25 08:25 RBC 3.26 L (3.80-5.40) m/uL Hgb 10.5 L (11.4-16.0) gm/dL Hct 32.7 L (34.0-46.0) % MCV 100.3 H (80.0-100.0) fL Plt Count 124 L (150-450) k/uL Lymphocytes # 0.7 L (1.0-4.8) k/uL Chloride 114 H (98-107) mmol/L Carbon Dioxide 16 L (22-30) mmol/L BUN 18 H (7-17) mg/dL Calcium 8.3 L (8.4-10.2) mg/dL Total Protein 5.5 L (6.3-8.2) g/dL Albumin 3.1 L (3.5-5.0) g/dL Urine Protein Trace H (Negative) Ur Leukocyte Esterase Large H (Negative) Urine WBC 33 H (0-5) /hpf Urine Bacteria Many H (None) /hpf Urine Mucus Rare H (None) /hpf Laboratory Results WBC 7.4 k/uL (3.8-10.6) 11/02/16 08:25 RBC 3.26 m/uL (3.80-5.40) L 11/02/16 08:25 Hgb 10.5 gm/dL (11.4-16.0) L 11/02/16 08:25 Hct 32.7 % (34.0-46.0) L 11/02/16 08:25 MCV 100.3 fL (80.0-100.0) H 11/02/16 08:25 MCH 32.3 pg (25.0-35.0) 11/02/16 08:25 MCHC 32.2 g/dL (31.0-37.0) 11/02/16 08:25 RDW 13.2 % (11.5-15.5) 11/02/16 08:25 Plt Count 124 k/uL (150-450) L 11/02/16 08:25 Neutrophils % 79 % 11/02/16 08:25 Lymphocytes % 10 % 11/02/16 08:25 Monocytes % 6 % 11/02/16 08:25 Eosinophils % 3 % 11/02/16 08:25 Basophils % 0 % 11/02/16 08:25 Neutrophils # 5.9 k/uL (1.3-7.7) 11/02/16 08:25 Lymphocytes # 0.7 k/uL (1.0-4.8) L 11/02/16 08:25 Monocytes # 0.5 k/uL (0-1.0) 11/02/16 08:25 Eosinophils # 0.2 k/uL (0-0.7) 11/02/16 08:25 Basophils # 0.0 k/uL (0-0.2) 11/02/16 08:25 Hypochromasia Slight 11/02/16 08:25 PT 11.0 sec (9.0-12.0) 11/01/16 20:52 INR 1.1 (<1.2) 11/01/16 20:52 APTT 27.1 sec (22.0-30.0) 11/01/16 20:52 Sodium 139 mmol/L (137-145) 11/02/16 08:25 Potassium 4.5 mmol/L (3.5-5.1) 11/02/16 08:25 Chloride 114 mmol/L (98-107) H 11/02/16 08:25 Carbon Dioxide 16 mmol/L (22-30) L 11/02/16 08:25 Anion Gap 9 mmol/L 11/02/16 08:25 BUN 18 mg/dL (7-17) H 11/02/16 08:25 Creatinine 0.99 mg/dL (0.52-1.04) 11/02/16 08:25 Est GFR (MDRD) Af Amer >60 (>60 ml/min/1.73 sqM) 11/02/16 08:25 Est GFR (MDRD) Non-Af 54 (>60 ml/min/1.73 sqM) 11/02/16 08:25 Glucose 80 mg/dL (74-99) 11/02/16 08:25 Plasma Lactic Acid Ric 0.7 mmol/L (0.7-2.0) 11/01/16 23:09 Calcium 8.3 mg/dL (8.4-10.2) L 11/02/16 08:25 Magnesium 1.9 mg/dL (1.6-2.3) 11/01/16 20:52 Total Bilirubin 0.4 mg/dL (0.2-1.3) 11/02/16 08:25 AST 23 U/L (14-36) 11/02/16 08:25 ALT 26 U/L (9-52) 11/02/16 08:25 Alkaline Phosphatase 83 U/L (38-126) 11/02/16 08:25 Total Creatine Kinase 83 U/L (30-135) 11/01/16 20:52 CK-MB (CK-2) 3.1 ng/mL (0.0-2.4) H* 11/01/16 20:52 CK-MB (CK-2) Rel Index 3.7 11/01/16 20:52 Troponin I <0.012 ng/mL (0.000-0.034) 11/01/16 20:52 Total Protein 5.5 g/dL (6.3-8.2) L 11/02/16 08:25 Albumin 3.1 g/dL (3.5-5.0) L 11/02/16 08:25 Amylase <30 U/L (30-110) L 11/01/16 20:52 Lipase <10 U/L (23-300) L 11/01/16 20:52 Urine Color Yellow 11/01/16 22:35 Urine Appearance Clear (Clear) 11/01/16 22:35 Urine pH 5.5 (5.0-8.0) 11/01/16 22:35 Ur Specific Omar 1.011 (1.001-1.035) 11/01/16 22:35 Urine Protein Trace (Negative) H 11/01/16 22:35 Urine Glucose (UA) Negative (Negative) 11/01/16 22:35 Urine Ketones Negative (Negative) 11/01/16 22:35 Urine Blood Negative (Negative) 11/01/16 22:35 Urine Nitrite Negative (Negative) 11/01/16 22:35 Urine Bilirubin Negative (Negative) 11/01/16 22:35 Urine Urobilinogen <2.0 mg/dL (<2.0) 11/01/16 22:35 Ur Leukocyte Esterase Large (Negative) H 11/01/16 22:35 Urine RBC 3 /hpf (0-5) 11/01/16 22:35 Urine WBC 33 /hpf (0-5) H 11/01/16 22:35 Urine Bacteria Many /hpf (None) H 11/01/16 22:35 Hyaline Casts 1 /lpf (0-2) 11/01/16 22:35 Urine Mucus Rare /hpf (None) H 11/01/16 22:35 Urine culture was ESBL E. coli Assessment and Plan (1) Sepsis Narrative/Plan: 81-year-old female who is brought to the emergency center for further evaluation of worsening status. His related that there was concerns urinary tract infection was brought to the emergency center if he days prior to this current admission. Workup at that time revealed evidence of potential urinary tract infection and was discharged on oral antibiotic therapy. Despite this she had worsening of her status and was again brought back to the emergency center where she now had evidence of sepsis. She is evidence of urinary tract infection and was having worsening mental status and became so weak that she could not ambulate. There is no evidence of the ESBL infection and antibiotic therapy has been altered to meropenem for now. Follow-up cultures are in process. Urine culture is also positive. There is potential that she will need intravenous antibiotic therapy at discharge. Currently hallucinations are minimal. She is not having significant fever or hypotension at this time. Continue ongoing supportive care. Unclear if she'll be able to be discharged home at the time of her discharge or will need care and antibiotic therapy. The acute renal failure that was present admission is improving. The patient does not have fever however this is not unusual in a chronically ill elderly patients. Status: Acute (2) UTI (urinary tract infection) Status: Acute (3) Hallucinations Status: Acute (4) Acute renal failure Status: Acute
[2016-11-03] MEDS ORDERED: GENTAMICIN 100 MG in SODIUM CHLORIDE 0.9% 100 ML IVPB SCH (03:00)
[2016-11-03] MEDS: SODIUM CHLORIDE 0.45% 1,000 ML IV SCH ×2 (05:18→16:53)
[2016-11-03] MEDS: MEROPENEM 1 GM in SODIUM CHLORIDE 0.9% 100 ML IVPB SCH ×2 (08:30→21:12)
[2016-11-03] MEDS: METOPROLOL SUCCINATE (ER) 50 MG TAB.ER.24H PO SCH (08:31)
[2016-11-03] MEDS: PANTOPRAZOLE 40 MG TABLET PO SCH (08:31)
[2016-11-03] MEDS: LISINOPRIL 20 MG TAB PO SCH (08:31)
[2016-11-03] MEDS: ISOSORBIDE MONONITRATE ER 60 MG TAB.ER.24H PO SCH (08:32)
[2016-11-03] MEDS: VIT A,C & E-LUTEIN-MINERALS 1 EACH TAB PO SCH (08:32)
[2016-11-03] MEDS: CHOLECALCIFEROL 1,000 UNIT TAB PO SCH (08:32)
[2016-11-03] MEDS: ASCORBIC ACID 500 MG TAB PO SCH (08:32)
[2016-11-03] MEDS: OXYBUTYNIN XL 5 MG TAB.ER.24 PO SCH (08:33)
[2016-11-03] MEDS: PHENAZOPYRIDINE 100 MG TAB PO SCH ×3 (08:33→22:55)
[2016-11-03] MEDS: PILOCARPINE 5 MG TAB PO SCH ×2 (08:34→20:04)
[2016-11-03] MEDS: ESCITALOPRAM 10 MG TAB PO SCH (08:56)
[2016-11-03 09:17] LABS: ALT 28 U/L (9-52); AST 22 U/L (14-36); Alkaline Phosphatase 79 U/L (38-126); Anion Gap 9 mmol/L; Blood Urea Nitrogen 15 mg/dL (7-17); Calcium 8.2 mg/dL (8.4-10.2); Carbon Dioxide 18 mmol/L (22-30); Chloride 112 mmol/L (98-107); Glucose 80 mg/dL (74-99); Non-African American GFR(MDRD) >60 (>60 ml/min/1.73 sqM); Potassium 4.2 mmol/L (3.5-5.1); Sodium 139 mmol/L (137-145); Total Bilirubin 0.5 mg/dL (0.2-1.3); Total Protein 5.1 g/dL (6.3-8.2)
[2016-11-03 10:12] LABS: Basophils % (A) 0 %; CH 31.6; CHCM 32.9; Eosinophils # (A) 0.2 k/uL (0-0.7); Eosinophils % (A) 3 %; HCT 33.7 % (34.0-46.0); HDW 2.58; HGB 11.5 gm/dL (11.4-16.0); Luc # (Auto) 0.15; Luc % (Auto) 2; Lymphocytes # (A) 0.6 k/uL (1.0-4.8); Lymphocytes % (A) 8 %; MCH 32.8 pg (25.0-35.0); MCV 96.5 fL (80.0-100.0); Mean Platelet Volume 9.3; Monocytes # (A) 0.5 k/uL (0-1.0); Monocytes % (A) 7 %; Neutrophils % (A) 81 %; RBC 3.49 m/uL (3.80-5.40); RDW 13.1 % (11.5-15.5); WBC 7.5 k/uL (3.8-10.6); WBC (Perox) 7.28
--- NOTE | 2016-11-03 11:46 | US ---
EXAMINATION TYPE: US kidneys/renal and bladder DATE OF EXAM: 11/03/2016 COMPARISON: NONE CLINICAL HISTORY: esbl uti. EXAM MEASUREMENTS: Right Kidney: 9.3 x 4.1 x 4.1 cm Left Kidney: 9.5 x 3.6 x 4.0 cm Patient unable to cooperate with examiner making exam technically difficult. Right Kidney: lobular surface texture Left Kidney: limited visualization, inferior pole not seen Bladder: wnl, partially obscured by bowel gas There is no evidence for hydronephrosis at this point in time. No nephrolithiasis is seen. No eliz s are identified. The urinary bladder is anechoic. Bilateral ureteral jets are seen. IMPRESSION: 1. Lobular contour of the right kidney which may relate to prior scarring or be congenital in nature. 2. Limited visualization of the left kidney. Previously described subcentimeter hypodense lesion with in the lower pole of the left kidney is not visualized. 3. No evidence of nephrolithiasis or hydronephrosis within either kidney.
--- NOTE | 2016-11-03 15:17 | P.PN ---
Subjective 79-year-old female one of Dr. Garcia's patient with past medical history of asthma, CAD with ischemic cardiomyopathy, previous history of lung cancer post resection who is known to have severe lower back pain. Patient had back surgery in May [address] Simmons she presented to the hospital secondary to increasing weakness and increasing somnolence, she was recently treated in the emergency room for urinary tract infection, and was given an oral antibiotic, urine cultures turn supervisor to be ESBL, patient did not get any better with the treatment and subsequently she was admitted for increasing symptoms include confusion and weakness falls, and abdominal discomfort. Patient also has diminished appetite and weight loss, In emergency room urinalysis was significant to show pyuria, BUN slightly elevated 24 with a creatinine 1.38 from a previous of 0.93 in February 2016, patient did not show any hypotensive events or hemodynamic instability on admission. Today she was subsequently transferred to the medical floor for ESBL UTI, patient was started initially on gentamicin which was transitioned to meropenem with consultation to Dr. Grace, renal ultrasound will be obtained along with blood cultures 11/03: Patient is planning to go to [facility] at the time of discharge. Dr. Grace will address IV antibiotics and PICC line will be ordered for tomorrow. Patient denies any abdominal pain. She states she has had one loose stool. She states she is eating okay. Objective - Vital Signs Vital signs: Vital Signs Temp 97.0 F L 11/03/16 07:00 Pulse 78 11/03/16 07:00 Resp 16 11/03/16 07:00 BP 149/69 11/03/16 07:00 Pulse Ox 95 11/03/16 07:00 Intake & Output 11/02/16 11/03/16 11/03/16 18:59 06:59 18:59 Intake Total 320 200 Balance 320 200 Intake: Oral 320 200 Other: Voiding Method Bedside Commode Diaper Diaper Incontinent Incontinent Incontinent # Voids 1 3 1 # Bowel Movements 1 1 - Exam General appearance: cooperative, no acute distress - EENT Eyes: anicteric sclerae, EOMI, PERRLA, dentition normal ENT: hard of hearing, NA/AT, normal oropharynx - Neck Neck: normal ROM - Respiratory Respiratory: bilateral: CTA, negative: diminished, dullness, wheezing - Cardiovascular Rhythm: regular Heart sounds: normal: S1, S2 Abnormal Heart Sounds: no systolic murmur, no diastolic murmur, no rub, no S3 Gallop, no S4 Gallop, no click, no other - Gastrointestinal General gastrointestinal: soft - Integumentary Integumentary: normal, normal turgor - Neurologic Neurologic: CNII-XII intact - Musculoskeletal Musculoskeletal: gait normal, strength equal bilaterally - Psychiatric Psychiatric: A&O x's 3, appropriate affect, intact judgment & insight - Labs CBC & Chem 7: 11/03/16 08:17 11/03/16 08:17 Labs: Abnormal Lab Results - Last 24 Hours (Table) 11/03/16 11/03/16 Range/Units 08: 08:17 RBC 3.49 L (3.80-5.40) m/uL Hct 33.7 L (34.0-46.0) % Plt Count 109 L (150-450) k/uL Lymphocytes # 0.6 L (1.0-4.8) k/uL Chloride 112 H (98-107) mmol/L Carbon Dioxide 18 L (22-30) mmol/L Calcium 8.2 L (8.4-10.2) mg/dL Total Protein 5.1 L (6.3-8.2) g/dL Albumin 2.9 L (3.5-5.0) g/dL Microbiology - Last 24 Hours (Table) 11/01/16 23:45 Blood Culture - Preliminary Blood No Growth after 24 hours Assessment and Plan Plan: 1. Acute urinary tract infection with metabolic encephalopathy, UTI growing ESBL 10/30/2016, patient will be seen consultation with Dr. Grace for antibiotic management, patient currently is on meropenem 1 g every 12 hours, blood cultures are currently pending updated cultures are currently pending. PICC line ordered 2. Acute on chronic kidney failure CK D stage II, patient will be hydrated at this time monitor labs, nephrotoxins will be avoided 3. CAD and severe ischemic cardiomyopathy with low ejection fraction of 50%: Patient has been on metoprolol and isosorbide. 4. Hypertension well controlled on metoprolol, lisinopril. 5. Sjogren syndrome: Patient using Salagen and Restasis eyedrops. Continue PreserVision 6. Chronic anemia history of GI bleed without any recent bleeding. 7. Chronic pain syndrome: Has been on fentanyl patch 12 g per hour. 8. Overactive bladder: Has been on Detrol. 9. Mild memory loss: No change remain on conservative management. 10. Mild elevation of AST and ALT. Recheck tomorrow.. 11. DVT prophylaxis: Patient will be on heparin subcutaneous. 12. GI prophylaxis. Protonix 40 mg orally once every day. 13. Acute debility with recent urinary tract infection, patient was seen by physical therapy as well, patient might need subacute or home therapies Patient will be admitted to hospital for a minimum of 2 nights stay. Discharge plan: [facility] tomorrow. Impression and plan of care have been directed as dictated by the signing physician. Caitlin Francis nurse practitioner acting as scribe for signing physician.
[2016-11-03] MEDS: MULTIVITAMINS, THERA 1 EACH TAB PO SCH (16:46)
[2016-11-03] MEDS: LACTOBACILLUS ACIDOPH & BULGAR 1 EACH PACKET PO SCH (16:46)
[2016-11-03] MEDS: OLANZapine 10 MG TAB PO SCH (18:45)
[2016-11-03] MEDS: ACETAMINOPHEN TAB 325 MG TAB PO PRN (18:45)
--- NOTE | 2016-11-03 21:51 | P.PN ---
Subjective Principal diagnosis: Altered mental status 81-year-old female who is cared for by the family and the home was having increasing difficulties with weakness, worsening hallucinations. She was not feeling well for a few days. Her status worsened to the point where she was not able to ambulate and the called EMS to have her transported to hospital. In the emergency center there was evidence of sepsis from a urinary tract infection and she was admitted. No other evidence of an ESBL urinary tract infection the infectious diseases consultation was requested. The patient remains confused and is a poor historian. The and son are quite helpful. She is having difficulties with multiple urinary tract infections over time. Over the last 6 months has just not been doing as well as she had in the past. She has intermittent hallucinations. Thought to be in the basis of medications, per aggressive disease and recurrent urinary tract infections. Patient is slightly more interactive today. Continues to have evidence of her dementia Objective - Vital Signs Vital signs: Vital Signs Temp 97.7 F 11/03/16 15:00 Pulse 82 11/03/16 15:00 Resp 18 11/03/16 15:00 BP 140/63 11/03/16 15:00 Pulse Ox 96 11/03/16 15:00 Intake & Output 11/03/16 11/03/16 11/04/16 06:59 18:59 06:59 Intake Total 200 Balance 200 Intake: Oral 200 Other: Voiding Method Diaper Diaper Diaper Incontinent Incontinent Incontinent # Voids 3 3 1 # Bowel Movements 1 - Exam 81-year-old female who is comfortable but a poor historian HEENT: Anicteric conjunctiva are pink and moist nasal mucosa grossly intact without significant lesions, there is no thrush. Oral cavity is dry Neck: The neck is supple without significant lymphadenopathy or thyromegaly. Lungs: Symmetrical air entry. Few basilar crackles are heard. Heart: Irregular with a soft S4 There is no significant murmur click or rub, PMI was nondisplaced. Abdomen: Ostomy is noted to be in place and functioning well. Extensive abdominal wall herniation is noted that his peristomal in nature Positive bowel sounds soft and nontender without palpable masses or organomegaly. There was no guarding or rebound. Extremities: The upper extremities have equal pulses they are symmetric, no significant petechiae or telangiectasia. No splinter hemorrhages were noted. Lower extremities have some trace edema. Evidence of some bruising apparently from recent fall Neuro: She is arousable, she is oriented to person only, attempts to answer questions but has a bit of echolalia however is able to move extremities spontaneously, no erica hallucinations at this time - Labs CBC & Chem 7: 11/03/16 08:17 11/03/16 08:17 Labs: Abnormal Lab Results - Last 24 Hours (Table) 11/03/16 11/03/16 Range/Units 08: 08:17 RBC 3.49 L (3.80-5.40) m/uL Hct 33.7 L (34.0-46.0) % Plt Count 109 L (150-450) k/uL Lymphocytes # 0.6 L (1.0-4.8) k/uL Chloride 112 H (98-107) mmol/L Carbon Dioxide 18 L (22-30) mmol/L Calcium 8.2 L (8.4-10.2) mg/dL Total Protein 5.1 L (6.3-8.2) g/dL Albumin 2.9 L (3.5-5.0) g/dL Microbiology - Last 24 Hours (Table) 11/01/16 23:45 Blood Culture - Preliminary Blood No Growth after 24 hours Laboratory Results WBC 7.5 k/uL (3.8-10.6) 11/03/16 08: RBC 3.49 m/uL (3.80-5.40) L 11/03/16 08:17 Hgb 11.5 gm/dL (11.4-16.0) 11/03/16 08:17 Hct 33.7 % (34.0-46.0) L 11/03/16 08:17 MCV 96.5 fL (80.0-100.0) 11/03/16 08: MCH 32.8 pg (25.0-35.0) 11/03/16 08: MCHC 34.0 g/dL (31.0-37.0) 11/03/16 08: RDW 13.1 % (11.5-15.5) 11/03/16 08:17 Plt Count 109 k/uL (150-450) L 11/03/16 08: Neutrophils % 81 % 11/03/16 08:17 Lymphocytes % 8 % 11/03/16 08:17 Monocytes % 7 % 11/03/16 08:17 Eosinophils % 3 % 11/03/16 08:17 Basophils % 0 % 11/03/16 08:17 Neutrophils # 6.0 k/uL (1.3-7.7) 11/03/16 08:17 Lymphocytes # 0.6 k/uL (1.0-4.8) L 11/03/16 08:17 Monocytes # 0.5 k/uL (0-1.0) 11/03/16 08: Eosinophils # 0.2 k/uL (0-0.7) 11/03/16 08:17 Basophils # 0.0 k/uL (0-0.2) 11/03/16 08:17 Hypochromasia Slight 11/02/16 08:25 PT 11.0 sec (9.0-12.0) 11/01/16 20:52 INR 1.1 (<1.2) 11/01/16 20:52 APTT 27.1 sec (22.0-30.0) 11/01/16 20:52 Sodium 139 mmol/L (137-145) 11/03/16 08:17 Potassium 4.2 mmol/L (3.5-5.1) 11/03/16 08:17 Chloride 112 mmol/L (98-107) H 11/03/16 08:17 Carbon Dioxide 18 mmol/L (22-30) L 11/03/16 08:17 Anion Gap 9 mmol/L 11/03/16 08:17 BUN 15 mg/dL (7-17) 11/03/16 08:17 Creatinine 0.78 mg/dL (0.52-1.04) 11/03/16 08:17 Est GFR (MDRD) Af Amer >60 (>60 ml/min/1.73 sqM) 11/03/16 08:17 Est GFR (MDRD) Non-Af >60 (>60 ml/min/1.73 sqM) 11/03/16 08:17 Glucose 80 mg/dL (74-99) 11/03/16 08:17 Plasma Lactic Acid Ric 0.7 mmol/L (0.7-2.0) 11/01/16 23:09 Calcium 8.2 mg/dL (8.4-10.2) L 11/03/16 08:17 Magnesium 1.9 mg/dL (1.6-2.3) 11/01/16 20:52 Total Bilirubin 0.5 mg/dL (0.2-1.3) 11/03/16 08:17 AST 22 U/L (14-36) 11/03/16 08:17 ALT 28 U/L (9-52) 11/03/16 08:17 Alkaline Phosphatase 79 U/L (38-126) 11/03/16 08:17 Total Creatine Kinase 83 U/L (30-135) 11/01/16 20:52 CK-MB (CK-2) 3.1 ng/mL (0.0-2.4) H* 11/01/16 20:52 CK-MB (CK-2) Rel Index 3.7 11/01/16 20:52 Troponin I <0.012 ng/mL (0.000-0.034) 11/01/16 20:52 Total Protein 5.1 g/dL (6.3-8.2) L 11/03/16 08: Albumin 2.9 g/dL (3.5-5.0) L 11/03/16 08:17 Amylase <30 U/L (30-110) L 11/01/16 20:52 Lipase <10 U/L (23-300) L 11/01/16 20:52 TSH 0.765 mIU/L (0.465-4.680) 11/03/16 08:17 Urine Color Yellow 11/01/16 22:35 Urine Appearance Clear (Clear) 11/01/16 22:35 Urine pH 5.5 (5.0-8.0) 11/01/16 22:35 Ur Specific [place] 1.011 (1.001-1.035) 11/01/16 22:35 Urine Protein Trace (Negative) H 11/01/16 22:35 Urine Glucose (UA) Negative (Negative) 11/01/16 22:35 Urine Ketones Negative (Negative) 11/01/16 22:35 Urine Blood Negative (Negative) 11/01/16 22:35 Urine Nitrite Negative (Negative) 11/01/16 22:35 Urine Bilirubin Negative (Negative) 11/01/16 22:35 Urine Urobilinogen <2.0 mg/dL (<2.0) 11/01/16 22:35 Ur Leukocyte Esterase Large (Negative) H 11/01/16 22:35 Urine RBC 3 /hpf (0-5) 11/01/16 22:35 Urine WBC 33 /hpf (0-5) H 11/01/16 22:35 Urine Bacteria Many /hpf (None) H 11/01/16 22:35 Hyaline Casts 1 /lpf (0-2) 11/01/16 22:35 Urine Mucus Rare /hpf (None) H 11/01/16 22:35 Microbiology 11/01/16 23:45 Blood Blood Culture - Preliminary No Growth after 24 hours Assessment and Plan (1) Sepsis Narrative/Plan: 81-year-old female who is brought to the emergency center for further evaluation of worsening status. His related that there was concerns urinary tract infection was brought to the emergency center if he days prior to this current admission. Workup at that time revealed evidence of potential urinary tract infection and was discharged on oral antibiotic therapy. Despite this she had worsening of her status and was again brought back to the emergency center where she now had evidence of sepsis. She is evidence of urinary tract infection and was having worsening mental status and became so weak that she could not ambulate. There is evidence of the Klebsiella ESBL infection and antibiotic therapy has been altered to meropenem for now. Follow-up cultures are in process. Urine culture is also positive. There is potential that she will need intravenous antibiotic therapy at discharge. Currently hallucinations are minimal. She is not having significant fever or hypotension at this time. Continue ongoing supportive care. Related that she was going to the extended care facility at discharge. Once blood cultures are negative we'll be able to have a PICC line placed and plan the 10 day course of ertapenem for her complex urinary tract infection. The acute renal failure that was present admission is improving. The patient does not have fever however this is not unusual in a chronically ill elderly patients. Status: Acute (2) UTI (urinary tract infection) Status: Acute (3) Hallucinations Status: Acute (4) Acute renal failure Status: Acute
[2016-11-04] MEDS: SODIUM CHLORIDE 0.45% 1,000 ML IV SCH ×2 (06:14→12:32)
[2016-11-04 07:52] VITALS: PULSE 75; RESP 16
--- NOTE | 2016-11-04 09:08 | P.DS ---
Providers Date of admission: 11/01/16 23:14 Expected date of discharge: 11/04/16 Attending physician: Melany Freedman Consults: 11/01/16 23:15 Consult Physician Routine Consulting Provider: Sudhakar Grace Consult Reason/Comments: UTI Do you want consulting provider notified?: Yes Primary care physician: Shimon Garcia Hospital Course: 79-year-old female one of Dr. Garcia's patient with past medical history of asthma, CAD with ischemic cardiomyopathy, previous history of lung cancer post resection who is known to have severe lower back pain. Patient had back surgery in May [address] Simmons she presented to the hospital secondary to increasing weakness and increasing somnolence, she was recently treated in the emergency room for urinary tract infection, and was given an oral antibiotic, urine cultures jewel bearing turner to be ESBL, patient did not get any better with the treatment and subsequently she was admitted for increasing symptoms include confusion and weakness falls, and abdominal discomfort. Patient also has diminished appetite and weight loss, In emergency room urinalysis was significant to show pyuria, BUN slightly elevated 24 with a creatinine 1.38 from a previous of 0.93 in February 2016, patient did not show any hypotensive events or hemodynamic instability on admission. Today she was subsequently transferred to the medical floor for ESBL UTI, patient was started initially on gentamicin which was transitioned to meropenem with consultation to Dr. Grace, renal ultrasound will be obtained along with blood cultures 11/03: Patient is planning to go to [facility] at the time of discharge. Dr. Grace will address IV antibiotics and PICC line will be ordered for tomorrow. Patient denies any abdominal pain. She states she has had one loose stool. She states she is eating okay. 08/04: Dr. Grace has clarified antibiotics with ertapenem for a ten-day course. PICC line is to be placed today. She will be discharge to [facility] today in stable condition. Discharge diagnoses: 1. Klebsiella pneumoniae ESBL acute urinary tract infection with metabolic encephalopathy 2. Acute on chronic kidney failure CKD stage II 3. CAD and severe ischemic cardiomyopathy with low ejection fraction of 50% 4. Hypertension 5. Sjogren syndrome 6. Chronic anemia history of GI bleed without any recent bleeding. 7. Chronic pain syndrome 8. Overactive bladder 9. Mild memory loss 10. Mild elevation of AST and ALT, return to normal 11. Acute debility with recent urinary tract infection, patient was seen by physical therapy as well, patient might need subacute or home therapies Discharge plan: Serjio Impression and plan of care have been directed as dictated by the signing physician. Caitlin Francis nurse practitioner acting as scribe for signing physician. Patient Condition at Discharge: Good Plan - Discharge Summary New Discharge Prescriptions: New Ertapenem [INVanz] 1 gm IVPB Q24H #10 bag Continue Isosorbide Mononitrate [Imdur] 60 mg PO QAM Pilocarpine HCl [Salagen] 7.5 mg PO BID L.acidoph/B.long/L.plant/B.lac [Probiotic Acidophilus Beads] 1 cap PO W/ SUPPER Tolterodine Tartrate [Detrol LA] 4 mg PO QAM Multivitamins, Thera [Multivitamin (formulary)] 1 tab PO W/SUPPER Vit C/E/Zn/Coppr/Lutein/Zeaxan [Preservision Areds 2 Softgel] 2 cap PO DAILY OLANZapine [ZyPREXA] 10 mg PO PC-SUPPER Escitalopram [Lexapro] 10 mg PO DAILY Metoprolol Succinate (ER) [Toprol XL] 150 mg PO DAILY #90 tab.er.24h Cholecalciferol [Vitamin D3] 1,000 unit PO DAILY Ubidecarenone [Co Q-10] 100 mg PO W/SUPPER Ascorbic Acid [Vitamin C] 500 mg PO DAILY Lisinopril 40 mg PO DAILY Lansoprazole [Prevacid] 15 mg PO DAILY ALPRAZolam [Xanax] 0.25 mg PO BID PRN #60 PRN Reason: Anxiety Discontinued Phenazopyridine HCl [Pyridium] 100 mg PO TID #6 tab Sulfamethox-Tmp 800-160Mg [Bactrim DS 800-160 mg] 1 tab PO Q12HR #14 tab Discharge Medication List Isosorbide Mononitrate [Imdur] 60 mg PO QAM 07/29/13 [History] Pilocarpine HCl [Salagen] 7.5 mg PO BID 07/29/13 [History] L.acidoph/B.long/L.plant/B.lac [Probiotic Acidophilus Beads] 1 cap PO W/SUPPER 05/09/14 [History] Tolterodine Tartrate [Detrol LA] 4 mg PO QAM 05/09/14 [History] Multivitamins, Thera [Multivitamin (formulary)] 1 tab PO W/SUPPER 03/01/15 [ History] Vit C/E/Zn/Coppr/Lutein/Zeaxan [Preservision Areds 2 Softgel] 2 cap PO DAILY [History] Escitalopram [Lexapro] 10 mg PO DAILY 08/29/15 [History] OLANZapine [ZyPREXA] 10 mg PO PC-SUPPER 08/29/15 [History] Metoprolol Succinate (ER) [Toprol XL] 150 mg PO DAILY #90 tab.er.24h 03/11/16 [ Rx] Ascorbic Acid [Vitamin C] 500 mg PO DAILY 10/30/16 [History] Cholecalciferol [Vitamin D3] 1,000 unit PO DAILY 10/30/16 [History] Lansoprazole [Prevacid] 15 mg PO DAILY 10/30/16 [History] Lisinopril 40 mg PO DAILY 10/30/16 [History] Ubidecarenone [Co Q-10] 100 mg PO W/SUPPER 10/30/16 [History] ALPRAZolam [Xanax] 0.25 mg PO BID PRN #60 11/04/16 [Rx] Ertapenem [INVanz] 1 gm IVPB Q24H #10 bag 11/04/16 [Rx] Follow up Appointment(s)/Referral(s): Shimon Garcia MD [Primary Care Provider] - 1 Week (at [facility]) Serjio Burciaga [NON-STAFF] - 1 Week Ambulatory/Diagnostic Orders: Complete Blood Count w/diff [LAB.AMB] Location: Determined By Patient Comprehensive Metabolic Panel [LAB.AMB] Location: Determined By Patient Patient Instructions/Handouts: Urinary Tract Infection in Women (DC), Peripherally Inserted Central Catheters and Midline Catheters (DC) Activity/Diet/Wound Care/Special Instructions: cardiac diet. Discharge Disposition: TRANSFER TO SNF/ECF
[2016-11-04] MEDS: ACETAMINOPHEN TAB 325 MG TAB PO PRN (09:22)
[2016-11-04] MEDS: PANTOPRAZOLE 40 MG TABLET PO SCH (09:23)
[2016-11-04] MEDS: PHENAZOPYRIDINE 100 MG TAB PO SCH (09:23)
[2016-11-04] MEDS: ASCORBIC ACID 500 MG TAB PO SCH (09:23)
[2016-11-04] MEDS: LISINOPRIL 20 MG TAB PO SCH (09:23)
[2016-11-04] MEDS: METOPROLOL SUCCINATE (ER) 50 MG TAB.ER.24H PO SCH (09:23)
[2016-11-04] MEDS: ISOSORBIDE MONONITRATE ER 60 MG TAB.ER.24H PO SCH (09:24)
[2016-11-04] MEDS: ESCITALOPRAM 10 MG TAB PO SCH (09:24)
[2016-11-04] MEDS: VIT A,C & E-LUTEIN-MINERALS 1 EACH TAB PO SCH (09:24)
[2016-11-04] MEDS: PILOCARPINE 5 MG TAB PO SCH (09:24)
[2016-11-04] MEDS: OXYBUTYNIN XL 5 MG TAB.ER.24 PO SCH (09:25)
[2016-11-04] MEDS: CHOLECALCIFEROL 1,000 UNIT TAB PO SCH (09:25)
[2016-11-04 09:40] LABS: Basophils % (A) 0 %; CH 32.3; CHCM 32.4; Eosinophils # (A) 0.4 k/uL (0-0.7); Eosinophils % (A) 5 %; HCT 35.8 % (34.0-46.0); HDW 2.57; HGB 11.2 gm/dL (11.4-16.0); Luc # (Auto) 0.13; Luc % (Auto) 2; Lymphocytes # (A) 0.6 k/uL (1.0-4.8); Lymphocytes % (A) 8 %; MCH 31.5 pg (25.0-35.0); MCHC 31.4 g/dL (31.0-37.0); MCV 100.2 fL (80.0-100.0); Monocytes # (A) 0.3 k/uL (0-1.0); Monocytes % (A) 4 %; Neutrophils # (A) 6.1 k/uL (1.3-7.7); Neutrophils % (A) 81 %; RBC 3.58 m/uL (3.80-5.40); RDW 13.6 % (11.5-15.5); WBC 7.5 k/uL (3.8-10.6); WBC (Perox) 8.29
[2016-11-04 09:53] LABS: ALT 27 U/L (9-52); AST 22 U/L (14-36); Alkaline Phosphatase 79 U/L (38-126); Anion Gap 9 mmol/L; Blood Urea Nitrogen 12 mg/dL (7-17); Calcium 8.2 mg/dL (8.4-10.2); Carbon Dioxide 15 mmol/L (22-30); Chloride 112 mmol/L (98-107); Glucose 140 mg/dL (74-99); Non-African American GFR(MDRD) >60 (>60 ml/min/1.73 sqM); Potassium 3.9 mmol/L (3.5-5.1); Sodium 136 mmol/L (137-145); Total Bilirubin 0.5 mg/dL (0.2-1.3); Total Protein 5.3 g/dL (6.3-8.2)
[2016-11-04] MEDS: MEROPENEM 1 GM in SODIUM CHLORIDE 0.9% 100 ML IVPB SCH (10:55)
[2016-11-04 12:45] VITALS: BP 150/70; TEMP 98
--- NOTE | 2016-11-04 16:32 | IR ---
EXAMINATION TYPE: IR cvc insert >=5 years DATE OF EXAM: 11/04/2016 COMPARISON: EXAMINATION TYPE: IR cvc insert >=5 years DATE OF EXAM: 11/04/2016 COMPARISON: NONE CLINICAL HISTORY: infection Needs long-term intravenous access for antibiotics. PROCEDURE: After informed consent, the skin overlying the left basilic vein was localized with ultrasound and no boubacar to be compressible and patent. An ultrasound image was obtained and submitted on the patient's c olivares. The overlying skin was prepped and draped and Lidocaine was used for local anesthesia. A skin huang was made with a scalpel. Access was gained to the vein under ultrasound guidance with a 21 gau ge needle and a 0.018 inch wire was advanced. Access site was dilated with Peel-Away sheath and cath eter tailored to the appropriate length and advanced such that the distal tip is at the cavoatrial ju nction. Spot image was obtained verifying placement. Catheter was fixed to the skin with suture and a sterile dressing was placed following hemostasis. Catheter was aspirated and flushed with saline. Patient was discharged in stable condition without complication. Maximal barrier technique is utili zed. Ultrasound image is documented on the chart. Ultrasound used with sterile technique. Fluoro time and fluoroscopic images submitted to document procedure: 14 intraoperative C-arm images, 0.3 minutes fluoroscopy time IMPRESSION: STATUS POST ULTRASOUND AND FLUOROSCOPIC GUIDED PICC LINE PLACEMENT, READY FOR USE. THIS PROCEDURE WAS PERFORMED BY THE UNDERSIGNED. CLINICAL HISTORY: Needs long-term intravenous access for antibiotics. PROCEDURE: After informed consent, the skin overlying the vein was localized with ultrasound and noted to be com pressible and patent. An ultrasound image was obtained and submitted on the patient's chart. The ov erlying skin was prepped and draped and Lidocaine was used for local anesthesia. A skin huang was mad e with a scalpel. Access was gained to the vein under ultrasound guidance with a 21 gauge needle and a 0.018 inch wire was advanced. Access site was dilated with Peel-Away sheath and catheter tailored to the appropriate length and advanced such that the distal tip is at the cavoatrial junction. Spot image was obtained verifying placement. Catheter was fixed to the skin with suture and a sterile dr essing was placed following hemostasis. Catheter was aspirated and flushed with saline. Patient was discharged in stable condition without complication. Maximal barrier technique is utilized. Ultraso und image is documented on the chart. Ultrasound used with sterile technique. Fluoro time and fluoroscopic images submitted to document procedure:
== END 2016-11-04 16:40 | DRG 871 ==
LOC: EC 20:03 → 4MS4W 23:14
PROVIDERS: ADMIT Family Medicine; ATTEND Family Medicine
PROC: 02HV33Z Insertion of Infusion Device into Superior Vena Cava, Percutaneous Approach (ICD-10-PCS; principal; 2016-11-04 13:55)
DX: A41.9 Sepsis, unspecified organism (principal); G93.41 Metabolic encephalopathy; N17.9 Acute kidney failure, unspecified; N39.0 Urinary tract infection, site not specified; R44.3 Hallucinations, unspecified; I25.5 Ischemic cardiomyopathy; M35.00 Sjogren syndrome, unspecified; N28.1 Cyst of kidney, acquired; I25.10 Atherosclerotic heart disease of native coronary artery without angina pectoris; F03.90 Unspecified dementia, unspecified severity, without behavioral disturbance, psychotic disturbance, mood disturbance, and anxiety; B96.1 Klebsiella pneumoniae [K. pneumoniae] as the cause of diseases classified elsewhere; D64.9 Anemia, unspecified; G47.30 Sleep apnea, unspecified; G89.4 Chronic pain syndrome; I12.9 Hypertensive chronic kidney disease with stage 1 through stage 4 chronic kidney disease, or unspecified chronic kidney disease; J45.909 Unspecified asthma, uncomplicated; M81.0 Age-related osteoporosis without current pathological fracture; N18.2 Chronic kidney disease, stage 2 (mild); N32.81 Overactive bladder; M19.90 Unspecified osteoarthritis, unspecified site; M54.5 Low back pain; R32 Unspecified urinary incontinence; R29.6 Repeated falls; Z16.12 Extended spectrum beta lactamase (ESBL) resistance; Z79.899 Other long term (current) drug therapy; Z85.118 Personal history of other malignant neoplasm of bronchus and lung; Z87.440 Personal history of urinary (tract) infections; Z93.3 Colostomy status; Z85.048 Personal history of other malignant neoplasm of rectum, rectosigmoid junction, and anus; Z88.6 Allergy status to analgesic agent; Z88.1 Allergy status to other antibiotic agents; Z88.0 Allergy status to penicillin; Z88.8 Allergy status to other drugs, medicaments and biological substances
CPT/HCPCS: 36415; 36569; 71020; 74176; 74177; 76770; 76937; 77001; 80048; 80053; 81001; 82150; 82550; 82553; 83605; 83690; 83735; 84443; 84484; 85025; 85610; 85730; 87040; 87077; 87086; 87186; 93005; 96374; 99284; 99285

== ENCOUNTER 2016-11-23 16:29 | Inpatient (IN) | payer MEDICARE ==
[2016-11-23] MEDS ORDERED: HYDROmorphone 1 MG/ML 1 ML SYRINGE IVP STA (17:06)
[2016-11-23] MEDS ORDERED: ONDANSETRON 4 MG/2 ML VIAL IVP STA (17:06)
--- NOTE | 2016-11-23 17:11 | ED ---
General Adult HPI - General Chief complaint: Fall Stated complaint: POSS RT HIP/KNEE INJURY Time Seen by Provider: 11/23/16 16:35 Source: patient, RN notes reviewed Mode of arrival: EMS Limitations: no limitations - History of Present Illness Initial comments: Patient's a 81-year-old female who presents emergency room today by EMS, the chief complaint of a fall that occurred just prior to arrival. She does admit that she was at her home. She states she was standing behind a couch when she went to turn to walk she lost her balance falling onto the right side. She admits that she does have increased pain to her right hip, knee and ankle. She denies any head injury or loss consciousness. She states she's not on any blood thinners. Patient denies any other complaints or symptoms at this time. Patient denies any recent fever, chills, shortness of breath, chest pain, back pain, abdominal pain, nausea or vomiting, numbness or tingling, dysuria or hematuria, constipation or diarrhea, headaches or visual changes, or any other complaints. - Related Data Home Medications Medication Instructions Recorded Confirmed Isosorbide Mononitrate [Imdur] 60 mg PO QAM 07/29/13 11/01/16 Pilocarpine HCl [Salagen] 7.5 mg PO BID 07/29/13 11/01/16 L.acidoph/B.long/L.plant/B.lac 1 cap PO W/SUPPER 05/09/14 11/01/16 [Probiotic Acidophilus Beads] Tolterodine Tartrate [Detrol LA] 4 mg PO QAM 05/09/14 11/01/16 Multivitamins, Thera [Multivitamin 1 tab PO W/SUPPER 03/01/15 11/01/16 (formulary)] Vit C/E/Zn/Coppr/Lutein/Zeaxan 2 cap PO DAILY 03/14/15 11/01/16 [Preservision Areds 2 Softgel] Escitalopram [Lexapro] 10 mg PO DAILY 08/29/15 11/01/16 OLANZapine [ZyPREXA] 10 mg PO PC-SUPPER 08/29/15 11/01/16 Ascorbic Acid [Vitamin C] 500 mg PO DAILY 10/30/16 11/01/16 Cholecalciferol [Vitamin D3] 1,000 unit PO DAILY 10/30/16 11/01/16 Lansoprazole [Prevacid] 15 mg PO DAILY 10/30/16 11/01/16 Lisinopril 40 mg PO DAILY 10/30/16 11/01/16 Ubidecarenone [Co Q-10] 100 mg PO W/SUPPER 10/30/16 11/01/16 Previous Rx's Medication Instructions Recorded Metoprolol Succinate (ER) [Toprol 150 mg PO DAILY #90 tab.er.24h 03/11/16 XL] ALPRAZolam [Xanax] 0.25 mg PO BID PRN #60 11/04/16 Ertapenem [INVanz] 1 gm IVPB Q24H #10 bag 11/04/16 Allergies Allergy/AdvReac Type Severity Reaction Status Date / Time aspirin Allergy Anaphylaxis Verified 11/23/16 16:56 caffeine Allergy Unknown Verified 11/23/16 16:56 celecoxib [From Celebrex] Allergy Rash/Hives Verified 11/23/16 16:56 codeine Allergy Anaphylaxis Verified 11/23/16 16:56 doxycycline Allergy Unknown Verified 11/23/16 16:56 hydrocodone bitartrate Allergy Unknown Verified 11/23/16 16:56 [From [place]] milk Allergy Unknown Verified 11/23/16 16:56 Penicillins Allergy Rash/Hives Verified 11/23/16 16:56 rofecoxib [From Vioxx] Allergy Rash/Hives Verified 11/23/16 16:56 albuterol [From Ventolin HFA] AdvReac Unknown Verified 11/23/16 16:56 albuterol sulfate AdvReac Rapid Verified 11/23/16 16:56 [From Ventolin HFA] Heart Rate clarithromycin [From Biaxin] AdvReac Nausea Verified 11/23/16 16:56 clindamycin AdvReac Nausea Verified 11/23/16 16:56 levofloxacin [From Levaquin] AdvReac Nausea Verified 11/23/16 16:56 Morpholine Analogues AdvReac Confusion Verified 11/23/16 16:56 ranitidine HCl [From Zantac] AdvReac Unknown Verified 11/23/16 16:56 Review of Systems ROS Statement: Those systems with pertinent positive or pertinent negative responses have been documented in the HPI. ROS Other: All systems not noted in ROS Statement are negative. Past Medical History Past Medical History: Asthma, Coronary Artery Disease (CAD), Cancer, GI Bleed, Hypertension, Memory Impairment, Musculoskeletal Disorder, Osteoarthritis (OA), Pneumonia, Sleep Apnea/CPAP/BIPAP Additional Past Medical History / Comment(s): HX OF SLEEP APNEA (HAD SURGERY), Sjogren syndrome, RECTAL CANCER WITH COLOSTOMY , osteoporosis, anemia, OVER ACTIVE BLADDER, hx. L4 fracture, pneumonia in May 2014 BRONCH WASHING WAS POSITIVE FOR KLEBSIELLA PNUEMONAE., BACK PAIN History of Any Multi-Drug Resistant Organisms: ESBL Date of last positivie culture/infection: 10/30/16 ESBL Klebsiella MDRO Source:: Urine Past Surgical History: Adenoidectomy, Appendectomy, Back Surgery, Bowel Resection, Breast Surgery, Heart Catheterization, Hysterectomy, Tonsillectomy, Uterine Ablation Additional Past Surgical History / Comment(s): PERMANENT COLOSTOMY. throat surgery removed uvula,L3-L4 two fractured vertebrae, sofi cataracts, kyphoplasty L4, PICCLINE IN MAY FOR ABX(PNE) SINCE REMOVED. Past Anesthesia/Blood Transfusion Reactions: No Reported Reaction Additional Past Anesthesia/Blood Transfusion Reaction / Comment(s): HX OF BLOOD TRANSFUSION Past Psychological History: No Psychological Hx Reported Smoking Status: Never smoker Past Alcohol Use History: Occasional Past Drug Use History: None Reported - Past Family History Mother History Unknown: Yes Family Medical History: Dialysis, Renal Disease Brother(s) History Unknown: Yes Family Medical History: No Reported History Sister(s) History Unknown: Yes Family Medical History: No Reported History Additional Family Medical History / Comment(s): Patient has 3 adopted kids. Father Family Medical History: Cancer, CVA/TIA Additional Family Medical History / Comment(s): 3 out of 4 siblings dx. autoimmune disease General Exam - General Exam Comments Initial Comments: General: The patient is awake and alert, in no distress, and does not appear acutely ill. Eye: Pupils are equal, round and reactive to light, extra-ocular movements are intact. No nystagmus. There is normal conjunctiva bilaterally. No signs of icterus. Ears, nose, mouth and throat: There are moist mucous membranes and no oral lesions. Neck: The neck is supple, there is no tenderness or JVD. Cardiovascular: There is a regular rate and rhythm. No murmur, rub or gallop is appreciated. Respiratory: Lungs are clear to auscultation, respirations are non-labored, breath sounds are equal. No wheezes, stridor, rales, or rhonchi. Gastrointestinal: Soft, non-distended, non-tender abdomen without masses or organomegaly noted. There is no rebound or guarding present. No CVA tenderness. Bowel sounds are unremarkable. Musculoskeletal: Patient does have shortening or rotation of the right lower extremity. Patient does have tenderness over the lateral aspect of the right hip. Does have tenderness over the medial anterior aspect of the right knee. And tender to palpation over the medial aspect of the right ankle. Patient shows limited range of motion due to pain. No other bony tenderness. Sensation intact. Pulses equal bilaterally 2+. Neurological: A&O x 3. CN II-XII intact, There are no obvious motor or sensory deficits. Coordination appears grossly intact. Speech is normal. Skin: Skin is warm and dry and no rashes or lesions are noted. Psychiatric: Cooperative, appropriate mood & affect, normal judgment. Limitations: no limitations Course Vital Signs 11/23/16 16:52 Temperature 98 F Pulse Rate 94 Respiratory 18 Rate Blood Pressure 166/79 O2 Sat by Pulse 98 Oximetry EKG Findings - EKG Comments: EKG Findings:: EKG performed at 1813: A 12-lead EKG was performed and interpreted by me as showing the following: Rate is 97, and rhythm is normal sinus. There are normal QRS complexes and normal R-wave progression. ST segments have no elevation or depression, and OK segments appear normal. Medical Decision Making - Medical Decision Making X-ray reviewed and does show hip fracture. Patient will be admitted to the hospital. Patient and family are aware of the plan. Disposition Clinical Impression: Hip fracture, right Disposition: ADMITTED IP TO THIS HOSP Condition: Stable Referrals: Shimon Garcia MD [Primary Care Provider] - 1-2 days Time of Disposition: 18:22
[2016-11-23] MEDS ORDERED: ONDANSETRON 4 MG/2 ML VIAL IVP PRN (18:23)
[2016-11-23] MEDS ORDERED: LORazepam 2 MG/ML SYRINGE IV PRN (18:23)
[2016-11-23] MEDS ORDERED: NALOXONE 0.4 MG/ML 1 ML VIAL IV PRN (18:23)
--- NOTE | 2016-11-23 18:34 | XR ---
EXAMINATION TYPE: XR knee complete RT DATE OF EXAM: 11/23/2016 COMPARISON: NONE HISTORY: Pain, fall TECHNIQUE: 3 view right knee FINDINGS: No joint effusion is evident. Some joint space narrowing may be present. No acute fractures evident. Follow-up exams can be performed 7-10 days from acute trauma for continued pain IMPRESSION: 1. No acute osseous abnormality.
--- NOTE | 2016-11-23 18:38 | XR ---
EXAMINATION TYPE: XR ankle limited RT DATE OF EXAM: 11/23/2016 COMPARISON: NONE HISTORY: Pain fall TECHNIQUE: 2 view right ankle FINDINGS: No acute fractures evident. Ankle mortise appears intact. Soft tissues appear normal. Plant ar calcaneal heel spur is present. IMPRESSION: 1. No acute osseous abnormality right ankle. Follow-up exams can be performed 7-10 days from acute t rauma for continued pain.
--- NOTE | 2016-11-23 18:40 | XR ---
EXAMINATION TYPE: XR chest 1V DATE OF EXAM: 11/23/2016 COMPARISON: NONE INDICATION: Pain TECHNIQUE: Single frontal view of the chest is obtained. FINDINGS: The heart size is normal. The pulmonary vasculature is normal. The lungs are clear. Post vertebral plasty is within the mid thoracic spine. Line enters on the left with the tip curled w ithin the right mid chest. The tip is somewhat curled and may not be within the superior vena cava. IMPRESSION: 1. No acute pulmonary process.
--- NOTE | 2016-11-23 18:43 | XR ---
EXAMINATION TYPE: XR Hip RT and AP Pelvis DATE OF EXAM: 11/23/2016 COMPARISON: NONE HISTORY: Pain, trauma TECHNIQUE: AP pelvis and 2 views right hip FINDINGS: There is a fracture of the right hip through the intertrochanteric region. An avulsion of t he lesser trochanters evident No additional fractures are clearly identified. A small buckle fracture is not entirely excluded jaleesa g the medial right symphysis pubis. This may be overlying artifact however. Fecal debris is within th e colon. Vertebral plasty of L4 is evident. IMPRESSION: 1. Intertrochanteric fracture extending from the proximal greater trochanter to the lesser trochante r.
[2016-11-23 18:51] LABS: Basophils % (A) 0 %; Eosinophils # (A) 0.4 k/uL (0-0.7); Eosinophils % (A) 4 %; HCT 31.6 % (34.0-46.0); HDW 2.33; HGB 10.1 gm/dL (11.4-16.0); Luc # (Auto) 0.13; Luc % (Auto) 1; Lymphocytes # (A) 0.8 k/uL (1.0-4.8); Lymphocytes % (A) 7 %; MCH 31.1 pg (25.0-35.0); MCHC 31.9 g/dL (31.0-37.0); MCV 97.3 fL (80.0-100.0); Mean Platelet Volume 7.8; Monocytes # (A) 0.5 k/uL (0-1.0); Monocytes % (A) 5 %; Neutrophils # (A) 9.4 k/uL (1.3-7.7); Neutrophils % (A) 83 %; RBC 3.25 m/uL (3.80-5.40); RDW 12.6 % (11.5-15.5); WBC 11.3 k/uL (3.8-10.6); WBC (Perox) 11.65
[2016-11-23 18:58] LABS: Partial Thromboplastin Time 24.3 sec (22.0-30.0)
[2016-11-23 19:02] LABS: INR 1.1 (<1.2); Prothrombin Time 10.6 sec (9.0-12.0)
[2016-11-23 19:11] LABS: ALT 30 U/L (9-52); AST 20 U/L (14-36); Alkaline Phosphatase 110 U/L (38-126); Anion Gap 10 mmol/L; Blood Urea Nitrogen 21 mg/dL (7-17); Calcium 8.4 mg/dL (8.4-10.2); Carbon Dioxide 25 mmol/L (22-30); Chloride 104 mmol/L (98-107); Glucose 120 mg/dL (74-99); Non-African American GFR(MDRD) 60 (>60 ml/min/1.73 sqM); Potassium 4.5 mmol/L (3.5-5.1); Sodium 139 mmol/L (137-145); Total Bilirubin 0.2 mg/dL (0.2-1.3); Total Protein 5.8 g/dL (6.3-8.2)
[2016-11-23] MEDS: HYDROmorphone 1 MG/ML 1 ML SYRINGE IV PRN (19:59)
[2016-11-23] MEDS: OLANZapine 10 MG TAB PO SCH (21:56)
[2016-11-23] MEDS: LACTOBACILLUS ACIDOPH & BULGAR 1 EACH PACKET PO SCH (21:56)
[2016-11-23] MEDS: CHOLECALCIFEROL 1,000 UNIT TAB PO SCH (21:57)
[2016-11-23] MEDS: PILOCARPINE 5 MG TAB PO SCH (21:57)
[2016-11-23] MEDS: VIT A,C & E-LUTEIN-MINERALS 1 EACH TAB PO SCH (21:57)
[2016-11-23 23:16] LABS: Appearance,Urine Clear (Clear); Bilirubin,Urine Negative (Negative); Glucose,Urine (UA) Negative (Negative); Ketones,Urine Negative (Negative); Leukocyte Esterase,Urine Negative (Negative); Nitrite,Urine Negative (Negative); Protein,Urine Trace (Negative); Specific Gravity,Urine 1.018 (1.001-1.035); UA Billing (MACRO vs. MICRO) CHEM; Urobilinogen,Urine <2.0 mg/dL (<2.0)
[2016-11-24] MEDS: HYDROmorphone 1 MG/ML 1 ML SYRINGE IV PRN (05:33)
[2016-11-24 07:00] LABS: Basophils % (A) 0 %; CH 30.5; CHCM 30.9; Eosinophils # (A) 0.3 k/uL (0-0.7); Eosinophils % (A) 4 %; HCT 28.3 % (34.0-46.0); HDW 2.35; Hypochromasia Slight; Luc # (Auto) 0.16; Luc % (Auto) 2; Lymphocytes # (A) 0.8 k/uL (1.0-4.8); Lymphocytes % (A) 10 %; MCH 31.7 pg (25.0-35.0); MCV 99.1 fL (80.0-100.0); Mean Platelet Volume 7.5; Monocytes # (A) 0.4 k/uL (0-1.0); Monocytes % (A) 5 %; Neutrophils # (A) 6.7 k/uL (1.3-7.7); Neutrophils % (A) 79 %; RBC 2.85 m/uL (3.80-5.40); RDW 12.5 % (11.5-15.5); WBC 8.4 k/uL (3.8-10.6); WBC (Perox) 9.08
[2016-11-24] MEDS ORDERED: IV FLUID CONTINUATION 1,000 ML IV ONE ×2 (07:04)
[2016-11-24] MEDS ORDERED: CLINDAMYCIN 600 MG in SODIUM CHLORIDE 0.9% 1,000 ML IRRIGATION ONE ×4 (07:05)
[2016-11-24] MEDS: SODIUM CHLORIDE 0.9% 1,000 ML IV SCH ×5 (07:15→18:26)
[2016-11-24 07:22] LABS: ALT 32 U/L (9-52); AST 22 U/L (14-36); Alkaline Phosphatase 95 U/L (38-126); Anion Gap 6 mmol/L; Blood Urea Nitrogen 19 mg/dL (7-17); Calcium 8.5 mg/dL (8.4-10.2); Carbon Dioxide 25 mmol/L (22-30); Chloride 106 mmol/L (98-107); Glucose 106 mg/dL (74-99); Non-African American GFR(MDRD) >60 (>60 ml/min/1.73 sqM); Potassium 4.6 mmol/L (3.5-5.1); Sodium 137 mmol/L (137-145); Total Bilirubin 0.4 mg/dL (0.2-1.3); Total Protein 5.4 g/dL (6.3-8.2)
[2016-11-24] MEDS: METOPROLOL SUCCINATE (ER) 50 MG TAB.ER.24H PO SCH (07:29)
[2016-11-24] MEDS: ISOSORBIDE MONONITRATE ER 60 MG TAB.ER.24H PO SCH (07:29)
--- NOTE | 2016-11-24 07:54 | P.HPOR ---
History of Present Illness H&P Date: 11/24/16 The patient is an 81-year-old female with multiple medical problems including early dementia, multiple falls, coronary artery disease, history of rectal cancer with colostomy, and a possible history of breast cancer. The patient currently is residing at a senior care. Yesterday she sustained a ground- level fall resulting in isolated hip pain and an inability to ambulate. She was brought to the emergency department where x-rays showed a displaced hip fracture. She was admitted under my care. This morning she is complaining of isolated hip pain. She denies hitting her head or losing consciousness. She has no other complaints at the time of my evaluation. She is accompanied at bedside by her . Past Medical History Past Medical History: Asthma, Coronary Artery Disease (CAD), Cancer, GI Bleed, Hypertension, Memory Impairment, Musculoskeletal Disorder, Osteoarthritis (OA), Pneumonia, Sleep Apnea/CPAP/BIPAP Additional Past Medical History / Comment(s): HX OF SLEEP APNEA (HAD SURGERY), Sjogren syndrome, RECTAL CANCER WITH COLOSTOMY , osteoporosis, anemia, OVER ACTIVE BLADDER, hx. L4 fracture, pneumonia in May 2014 BRONCH WASHING WAS POSITIVE FOR KLEBSIELLA PNUEMONAE., BACK PAIN History of Any Multi-Drug Resistant Organisms: ESBL Date of last positivie culture/infection: 10/30/16 ESBL Klebsiella MDRO Source:: Urine Past Surgical History: Adenoidectomy, Appendectomy, Back Surgery, Bowel Resection, Breast Surgery, Heart Catheterization, Hysterectomy, Tonsillectomy, Uterine Ablation Additional Past Surgical History / Comment(s): PERMANENT COLOSTOMY. throat surgery removed uvula,L3-L4 two fractured vertebrae, sofi cataracts, kyphoplasty L4, PICCLINE IN MAY FOR ABX(PNE) SINCE REMOVED. Past Anesthesia/Blood Transfusion Reactions: No Reported Reaction Additional Past Anesthesia/Blood Transfusion Reaction / Comment(s): HX OF BLOOD TRANSFUSION Past Psychological History: No Psychological Hx Reported Additional Psychological History / Comment(s): cared for in the family home by the and children. Retired. No experience. No international travel. No tobacco or alcohol use. No animal exposures Smoking Status: Never smoker Past Alcohol Use History: Occasional Past Drug Use History: None Reported - Past Family History Mother History Unknown: Yes Family Medical History: Dialysis, Renal Disease Brother(s) History Unknown: Yes Family Medical History: No Reported History Sister(s) History Unknown: Yes Family Medical History: No Reported History Additional Family Medical History / Comment(s): Patient has 3 adopted kids. Father Family Medical History: Cancer, CVA/TIA Additional Family Medical History / Comment(s): 3 out of 4 siblings dx. autoimmune disease Medications and Allergies Home Medications Medication Instructions Recorded Confirmed Type Isosorbide Mononitrate [Imdur] 60 mg PO QAM 07/29/13 11/23/16 History Pilocarpine HCl [Salagen] 7.5 mg PO BID 07/29/13 11/23/16 History L.acidoph/B.long/L.plant/B.lac 1 cap PO W/SUPPER 05/09/14 11/23/16 History [Probiotic Acidophilus Beads] Tolterodine Tartrate [Detrol LA] 4 mg PO QAM 05/09/14 11/23/16 History Multivitamins, Thera [Multivitamin 1 tab PO W/SUPPER 03/01/15 11/23/16 History (formulary)] Vit C/E/Zn/Coppr/Lutein/Zeaxan 2 cap PO HS 03/14/15 11/23/16 History [Preservision Areds 2 Softgel] Escitalopram [Lexapro] 10 mg PO QAM 08/29/15 11/23/16 History OLANZapine [ZyPREXA] 10 mg PO PC-SUPPER 08/29/15 11/23/16 History Ascorbic Acid [Vitamin C] 500 mg PO QAM 10/30/16 11/23/16 History Cholecalciferol [Vitamin D3] 1,000 unit PO HS 10/30/16 11/23/16 History Lansoprazole [Prevacid] 15 mg PO QAM 10/30/16 11/23/16 History Lisinopril 40 mg PO QAM 10/30/16 11/23/16 History Ubidecarenone [Co Q-10] 100 mg PO W/SUPPER 10/30/16 11/23/16 History ALPRAZolam [Xanax] 0.25 mg PO BID 11/23/16 11/23/16 History Metoprolol Succinate (ER) [Toprol 150 mg PO QAM 11/23/16 11/23/16 History XL] oxyCODONE-APAP 5-325MG [Percocet 1 tab PO BID 11/23/16 11/23/16 History 5-325 mg] Allergies Allergy/AdvReac Type Severity Reaction Status Date / Time aspirin Allergy Anaphylaxis Verified 11/23/16 19:46 caffeine Allergy Unknown Verified 11/23/16 19:46 celecoxib [From Celebrex] Allergy Rash/Hives Verified 11/23/16 19:46 codeine Allergy Anaphylaxis Verified 11/23/16 19:46 doxycycline Allergy Unknown Verified 11/23/16 19:46 hydrocodone bitartrate Allergy Unknown Verified 11/23/16 19:46 [From University] milk Allergy Unknown Verified 11/23/16 19:46 Penicillins Allergy Rash/Hives Verified 11/23/16 19:46 rofecoxib [From Vioxx] Allergy Rash/Hives Verified 11/23/16 19:46 albuterol sulfate AdvReac Rapid Verified 11/23/16 19:46 [From Ventolin HFA] Heart Rate clarithromycin [From Biaxin] AdvReac Nausea Verified 11/23/16 19:46 clindamycin AdvReac Nausea Verified 11/23/16 19:46 levofloxacin [From Levaquin] AdvReac Nausea Verified 11/23/16 19:46 Morpholine Analogues AdvReac Confusion Verified 11/23/16 19:46 ranitidine HCl [From Zantac] AdvReac Unknown Verified 11/23/16 19:46 Physical Examination On exam the patient is in no apparent distress and is resting comfortably in her bed. She is alert and able to answer questions. Her head is normocephalic and atraumatic. She demonstrates nonlabored breathing with symmetric chest expansion. On exam of her abdomen there is a colostomy bag in place. She has no tenderness in her upper extremities. There are no deformities of her left lower extremity. On examination of the right lower extremity does shortened and externally rotated. She has tenderness over the proximal aspect of the thigh. There are no open wounds or skin lesions over the lateral aspect of the thigh. She has no tenderness over her knee or ankle. Her thigh and calf are soft. Sensation is intact to light touch in her right foot. She is able to actively plantarflex and dorsiflex her ankles and her toes. Results X-rays of the right hip and pelvis show a displaced basocervical intertrochanteric hip fracture. X-rays of the knee and ankle show no acute fractures or bony lesions. - Labs Labs: Abnormal Lab Results - Last 24 Hours (Table) 11/23/16 11/23/16 11/23/16 Range/Units 18:30 18:30 23:00 WBC 11.3 H (3.8-10.6) k/uL RBC 3.25 L (3.80-5.40) m/uL Hgb 10.1 L (11.4-16.0) gm/dL Hct 31.6 L (34.0-46.0) % Plt Count (150-450) k/uL Neutrophils # 9.4 H (1.3-7.7) k/uL Lymphocytes # 0.8 L (1.0-4.8) k/uL BUN 21 H (7-17) mg/dL Glucose 120 H (74-99) mg/dL Total Protein 5.8 L (6.3-8.2) g/dL Albumin 3.3 L (3.5-5.0) g/dL Urine Protein Trace H (Negative) 11/24/16 11/24/16 Range/Units 06:42 06:42 WBC (3.8-10.6) k/uL RBC 2.85 L (3.80-5.40) m/uL Hgb 9.0 L (11.4-16.0) gm/dL Hct 28.3 L (34.0-46.0) % Plt Count 132 L (150-450) k/uL Neutrophils # (1.3-7.7) k/uL Lymphocytes # 0.8 L (1.0-4.8) k/uL BUN 19 H (7-17) mg/dL Glucose 106 H (74-99) mg/dL Total Protein 5.4 L (6.3-8.2) g/dL Albumin 3.1 L (3.5-5.0) g/dL Urine Protein (Negative) H & H 11/23/16 11/24/16 Range/Units 18:30 06:42 Hgb 10.1 L 9.0 L (11.4-16.0) gm/dL Hct 31.6 L 28.3 L (34.0-46.0) % Coagulation 11/23/16 Range/Units 18:30 INR 1.1 (<1.2) Result Diagrams: 11/24/16 06:42 11/24/16 06:42 Assessment and Plan (1) Hip fracture, right Status: Acute Plan: I lengthy discussion with the patient and her on treatment. I recommended operative fixation of her hip fracture to facilitate early mobilization. Due to her history of cancer and recent falls I recommended performing a long cephalo-medullary nail to protect the entire femur. We discussed the potential risks and complications of surgery including but not limited to risks of anesthesia, risk of superficial infection, risk of deep infection, risk of delayed wound healing, risk of intraoperative fracture, risk of postoperative fracture, risk of malreduction, risk of implant failure, risk of varus collapse, risk of needing further surgery, risk of damage to local blood vessels or nerves, risk of symptomatic hardware, risk of inability to ambulate following surgery, risk of failure to thrive following surgery, and risk of postoperative medical problems including DVT, fatal PE, acute coronary event, pneumonia, stroke, acute coronary event and possibly . The patient and her understand these potential risks and agreed to go forward with surgery. The patient was seen and cleared for surgery by internal medicine prior to our procedure.
[2016-11-24] MEDS ORDERED: PHENYLEPHRINE-0.9% NACL SYG 1 MG/10 ML SYRINGE ONE (08:11)
[2016-11-24] MEDS ORDERED: KETAMINE 10 MG/ML 20 ML VIAL ONE (08:11)
[2016-11-24] MEDS ORDERED: MIDAZOLAM 2 MG/2 ML VIAL ONE (08:11)
[2016-11-24] MEDS ORDERED: LISINOPRIL 20 MG TAB PO SCH (09:00)
[2016-11-24] MEDS ORDERED: LACTATED RINGERS 1,000 ML IV ONE (09:25)
--- NOTE | 2016-11-24 09:46 | FL ---
EXAMINATION TYPE: FL guidance operating room, XR femur RT DATE OF EXAM: 11/24/2016 CLINICAL HISTORY: Right hip fracture. TECHNIQUE: Fluoroscopy. Intraoperative limited views right hip. COMPARISON: Pelvic and right hip x-ray from yesterday.. FINDINGS: Fluoroscopic guidance was provided during open reduction internal fixation procedure perfo rmed by Dr. Pond. A total of 70 seconds of fluoroscopic time was utilized during the procedure a nd 4 spot intraoperative images are acquired. Intraoperative images acquired show placement of large intramedullary jordana with proximal femoral necks fixating screw and distal transverse metaphyseal fixating screw through intertrochanteric fracture r ight proximal femur. Improved alignment is seen after reduction and fixation on intraoperative images obtained. IMPRESSION: As Above.
[2016-11-24] MEDS ORDERED: HYDROcodone/APAP 5-325MG 1 EACH TAB PO PRN ×2 (10:03)
[2016-11-24] MEDS ORDERED: NALOXONE 0.4 MG/ML 1 ML VIAL IV PRN (10:03)
--- NOTE | 2016-11-24 10:03 | P.OP ---
Date of Procedure: 11/24/16 Preoperative Diagnosis: 1. Right basicervical hip fracture 2. History of prior fragility fractures 3. Coronary artery disease 4. History of prior cancer including rectal cancer and possibly breast cancer Postoperative Diagnosis: Same Procedure(s) Performed: Operative fixation of right hip fracture with long intramedullary hip screw Implants: [employer]ynthe[employer] TFN nail 360 mm x 12 mm, 100 mm helical blade, 50 mm 5.0 distal interlocking screw Anesthesia: spinal Surgeon: Raffi Pond Estimated Blood Loss (ml): 100 IV fluids (ml): 350 Urine output (ml): 150 Pathology: other (Reamings sent for pathology due to history of cancer) Condition: stable Disposition: PACU Indications for Procedure: The patient is an 81-year-old female with multiple medical problems and a prior history of cancer. The patient sustained a fall resulting in a right hip fracture. She is unable to ambulate. She was brought by EMS to the ER here at [facility] where she was diagnosed with a hip fracture and admitted to [facility]. The patient was seen and evaluated preoperatively. She is also seen and cleared for surgery by internal medicine. I lengthy discussion with the patient and her on treatment options prior to surgery. My recommendation was to perform a long cephalo-medullary device to fix her fracture and protect hole femur given her history of cancer and multiple falls. We discussed potential risks and complication of surgery including but not limited to risk of anesthesia, risk of superficial infection, risk of deep infection, risk of delayed wound healing, risk of superficial wound necrosis, risk of deep necrosis, risk of damage but vessels or nerves, risk of intraoperative fracture, risk of postoperative fracture, risk of fixation failure, risk of collapse of the fracture, risk of need for further surgery, risk of inability to ambulate preinjury level of function, risk of chronic pain , risk of chronic swelling, risk of postoperative medical problems including DVT , PE, fatal PE, acute coronary event, stroke, pressure sore, pneumonia, urinary tract infection, and possibly . The patient and her understand these potential complications and provided their consent to go forward with surgery. Operative Findings: Description of Procedure: The patient was identified in preoperative holding and the correct right lower extremity was marked with my initials. I reviewed the consent form with the patient and her . The patient was then brought back to the operating room. Once in the operating room a spinal anesthetic was administered well the patient was still on her gurney by anesthesia. She was then transferred onto the fracture table. All bony prominences were well-padded. Preoperative antibiotics were administered. A perineal post was placed. The patient's contralateral left leg was scissored, secured to the table with a pillow and Alok wrap. Right leg was placed in the boot of the fracture table. A timeout was performed identifying the correct patient, operative extremity, and procedure. A closed reduction was then performed using the fracture table with a combination of longitudinal traction, adduction, and internal rotation. Medially the fracture reduced anatomically at the inferior neck. The patient's contralateral unaffected left hip had a varus hip center. The patient's right hip appeared symmetric to the left hip with both having a varus hip center. At this point the right leg was prepped and draped in the standard sterile fashion. I began by making a small stab incision just proximal to the greater trochanter in line with the femur. A 3.2 mm pin was placed at the medial tip of the greater trochanter on the AP view and centered with the femoral canal on the lateral view. It was driven down with power to the level of the lesser trochanter. An opening reamer was used to gain access to the femoral canal. These reamings were sent to pathology due to her history of cancer. I then placed a long ball-tipped guidewire down to the level of the fascial scar. I measured the guidepin to 360 mm. I then passed reamers by hand starting with an 8 mm reamer and increasing in 1 mm increments until a 13 mm reamer was able to be passed down the femur with ease. At this point a long 360 mm x 12 mm nail was dispensed and secured to the targeting arm. I confirmed that the trocar lined up with the slot for the helical blade. The nail was then advanced down the femur with the targeting arm anteriorly to start and then rotating laterally as the nail was further advanced on the femur. I verified that the nail was fully set both proximally and distally. I then placed the trocar for the helical blade to the targeting arm down to the lateral skin and a 15 blade scalpel was used to make an incision through the skin, subcutaneous tissue and IT band down to the lateral aspect of the femur. The trocar was brought down the lateral aspect of the femur. A guidepin was placed in the low center position of the femoral head on the AP view and centered in the femoral head on the lateral view. I measured the pin 200 mm. I then drilled over the guidepin. A 100 mm helical blade was then gently tapped into place. The set screw proximally was completely tightened and then backed off half a turn. I verified position of the helical blade with fluoroscopy. Attention was then turned distally. Perfect circles were obtained and an interlocking screw was placed distally using the freehand technique. At this point the targeting arm was removed proximally and final x-rays including AP and lateral images of both the hip and knee were obtained. The fracture appeared to be reduced and the hardware appeared to be in acceptable butler. Both wounds were copiously irrigated with sterile saline. The deep subcu and fascial layer was closed with 0 Vicryl. The subcutaneous tissue was closed with 2-0 Vicryl. The skin was closed with hanh. Sterile dressings consisting of Betadine soaked Adaptic, 4 x 4, and Tegaderm were applied. I verified that all instrument, sponge, and sharp counts were correct. The patient was then carefully taken off of the fracture table and transferred to a [place] having tolerated the procedure well. Plan: The patient can weight-bear as tolerated on her right leg. She will receive 2 doses of postoperative antibiotics. DVT prophylaxis with Lovenox 4 weeks. Dressing changes per protocol. Internal medicine for perioperative medical management. Discharge planning.
[2016-11-24] MEDS: HYDROmorphone 1 MG/ML 1 ML SYRINGE IVP ONE ×2 (10:11→10:32)
[2016-11-24] MEDS ORDERED: ONDANSETRON 4 MG/2 ML VIAL IVP ONE (10:11)
[2016-11-24] MEDS: OXYBUTYNIN XL 5 MG TAB.ER.24 PO SCH (11:52)
[2016-11-24] MEDS: PANTOPRAZOLE 40 MG TABLET PO SCH (11:52)
[2016-11-24] MEDS: ASCORBIC ACID 500 MG TAB PO SCH (11:52)
[2016-11-24] MEDS: PILOCARPINE 5 MG TAB PO SCH ×2 (11:52→20:13)
--- NOTE | 2016-11-24 12:17 | P.CONS ---
History of Present Illness - Reason for Consult Consult date: 11/24/16 Medical management - History of Present Illness This is a 79-year-old female patient of Dr. Garcia'farzaneh with past medical history of asthma, CAD with ischemic cardiomyopathy, previous history of lung cancer post resection who is known to have severe lower back pain. Patient had back surgery in May [address] Simmons. She was recently hospitalized in October for acute mental status changes secondary to Klebsiella pneumoniae ESBL acute urinary tract infection. Patient was transferred by EMS from home. She is currently residing at [facility] but her picks her up and takes her for car rides and yesterday, he took her home and she apparently was ambulating without a walker. She turned to walk and lost her balance falling onto her right side. She developed increasing pain to her right hip, knee and ankle. She denies any head injury or loss of consciousness. No fever or chills. No nausea vomiting, diarrhea. She denies any blood in her stools. Patient was admitted to the hospital in the care of Dr. Pond and is status post IM screw done this morning. Patient is seen in the postop period and noted to have hypotension for which a fluid bolus of 500 mL ordered. She has a Baez catheter in place. Family is at the bedside and have been updated. Her lisinopril has been discontinued and parameters placed on other blood pressure medications. Review of Systems All systems: negative Constitutional: Denies chills, Denies fever, Denies poor appetite, Denies weakness Eyes: denies blurred vision, denies pain Ears, nose, mouth and throat: Denies dental pain, Denies headache, Denies mouth pain, Denies sore throat, Denies vertigo Cardiovascular: Denies chest pain, Denies decreased exercise tolerance, Denies dyspnea on exertion, Denies edema, Denies leg edema, Denies lightheadedness, Denies palpitations, Denies shortness of breath, Denies syncope Respiratory: Denies cough, Denies cough with sputum, Denies dyspnea, Denies excessive sputum, Denies hemoptysis, Denies home oxygen Gastrointestinal: Denies abdominal pain, Denies diarrhea, Denies hematemesis, Denies hematochezia, Denies melena, Denies nausea, Denies vomiting Genitourinary: Denies dysuria, Denies hematuria, Denies urinary frequency Musculoskeletal: Denies myalgias Musculoskeletal: right: hip pain, hip swelling Integumentary: Denies pruritus, Denies rash Neurological: Denies numbness, Denies weakness Psychiatric: Denies anxiety, Denies depression Endocrine: Denies fatigue, Denies weight change Past Medical History Past Medical History: Asthma, Coronary Artery Disease (CAD), Cancer, GI Bleed, Hypertension, Memory Impairment, Musculoskeletal Disorder, Osteoarthritis (OA), Pneumonia, Sleep Apnea/CPAP/BIPAP Additional Past Medical History / Comment(s): HX OF SLEEP APNEA (HAD SURGERY), Sjogren syndrome, RECTAL CANCER WITH COLOSTOMY , osteoporosis, anemia, OVER ACTIVE BLADDER, hx. L4 fracture, pneumonia in May 2014 BRONCH WASHING WAS POSITIVE FOR KLEBSIELLA PNUEMONAE., BACK PAIN History of Any Multi-Drug Resistant Organisms: ESBL Year Discovered:: 10/30/16 ESBL Klebsiella MDRO Source:: Urine Past Surgical History: Adenoidectomy, Appendectomy, Back Surgery, Bowel Resection, Breast Surgery, Heart Catheterization, Hysterectomy, Tonsillectomy, Uterine Ablation Additional Past Surgical History / Comment(s): PERMANENT COLOSTOMY. throat surgery removed uvula,L3-L4 two fractured vertebrae, sofi cataracts, kyphoplasty L4, PICCLINE IN MAY FOR ABX(PNE) SINCE REMOVED. Past Anesthesia/Blood Transfusion Reactions: No Reported Reaction Additional Past Anesthesia/Blood Transfusion Reaction / Comm: HX OF BLOOD TRANSFUSION Past Psychological History: No Psychological Hx Reported Additional Psychological History / Comment(s): cared for in the family home by the and children. Retired. No experience. No international travel. No tobacco or alcohol use. No animal exposures Smoking Status: Never smoker Past Alcohol Use History: Occasional Past Drug Use History: None Reported - Past Family History Mother History Unknown: Yes Family Medical History: Dialysis, Renal Disease Brother(s) History Unknown: Yes Family Medical History: No Reported History Sister(s) History Unknown: Yes Family Medical History: No Reported History Additional Family Medical History / Comment(s): Patient has 3 adopted kids. Father Family Medical History: Cancer, CVA/TIA Additional Family Medical History / Comment(s): 3 out of 4 siblings dx. autoimmune disease Medications and Allergies Home Medications Medication Instructions Recorded Confirmed Type Isosorbide Mononitrate [Imdur] 60 mg PO QAM 07/29/13 11/23/16 History Pilocarpine HCl [Salagen] 7.5 mg PO BID 07/29/13 11/23/16 History L.acidoph/B.long/L.plant/B.lac 1 cap PO W/SUPPER 05/09/14 11/23/16 History [Probiotic Acidophilus Beads] Tolterodine Tartrate [Detrol LA] 4 mg PO QAM 05/09/14 11/23/16 History Multivitamins, Thera [Multivitamin 1 tab PO W/SUPPER 03/01/15 11/23/16 History (formulary)] Vit C/E/Zn/Coppr/Lutein/Zeaxan 2 cap PO HS 03/14/15 11/23/16 History [Preservision Areds 2 Softgel] Escitalopram [Lexapro] 10 mg PO QAM 08/29/15 11/23/16 History OLANZapine [ZyPREXA] 10 mg PO PC-SUPPER 08/29/15 11/23/16 History Ascorbic Acid [Vitamin C] 500 mg PO QAM 10/30/16 11/23/16 History Cholecalciferol [Vitamin D3] 1,000 unit PO HS 10/30/16 11/23/16 History Lansoprazole [Prevacid] 15 mg PO QAM 10/30/16 11/23/16 History Lisinopril 40 mg PO QAM 10/30/16 11/23/16 History Ubidecarenone [Co Q-10] 100 mg PO W/SUPPER 10/30/16 11/23/16 History ALPRAZolam [Xanax] 0.25 mg PO BID 11/23/16 11/23/16 History Metoprolol Succinate (ER) [Toprol 150 mg PO QAM 11/23/16 11/23/16 History XL] oxyCODONE-APAP 5-325MG [Percocet 1 tab PO BID 11/23/16 11/23/16 History 5-325 mg] Allergies Allergy/AdvReac Type Severity Reaction Status Date / Time aspirin Allergy Anaphylaxis Verified 11/23/16 19:46 caffeine Allergy Unknown Verified 11/23/16 19:46 celecoxib [From Celebrex] Allergy Rash/Hives Verified 11/23/16 19:46 codeine Allergy Anaphylaxis Verified 11/23/16 19:46 doxycycline Allergy Unknown Verified 11/23/16 19:46 hydrocodone bitartrate Allergy Unknown Verified 11/23/16 19:46 [From [place]] milk Allergy Unknown Verified 11/23/16 19:46 Penicillins Allergy Rash/Hives Verified 11/23/16 19:46 rofecoxib [From Vioxx] Allergy Rash/Hives Verified 11/23/16 19:46 albuterol sulfate AdvReac Rapid Verified 11/23/16 19:46 [From Ventolin HFA] Heart Rate clarithromycin [From Biaxin] AdvReac Nausea Verified 11/23/16 19:46 clindamycin AdvReac Nausea Verified 11/23/16 19:46 levofloxacin [From Levaquin] AdvReac Nausea Verified 11/23/16 19:46 Morpholine Analogues AdvReac Confusion Verified 11/23/16 19:46 ranitidine HCl [From Zantac] AdvReac Unknown Verified 11/23/16 19:46 Physical Exam Vitals: Vital Signs Temp Pulse Pulse Resp BP BP Pulse Ox 11/24/16 07:00 97.4 F L 85 12 180/76 96 11/24/16 05:25 98.1 F 88 17 136/68 98 11/23/16 23:02 98.2 F 95 18 163/79 97 11/23/16 19:02 97.8 F 88 18 156/70 97 11/23/16 16:52 98 F 94 18 166/79 98 Intake and Output 11/23/16 11/24/16 11/24/16 22:59 06:59 14:59 Intake Total 100 Output Total 425 Balance -325 Intake: Oral 100 Output: Urine 425 Other: Voiding Method Indwelling Catheter Weight 57.606 kg General appearance: cooperative, no acute distress - EENT Eyes: anicteric sclerae, EOMI, PERRLA, dentition normal ENT: hard of hearing, NA/AT, normal oropharynx - Neck Neck: normal ROM - Respiratory Respiratory: bilateral: CTA, negative: diminished, dullness, wheezing - Cardiovascular Rhythm: regular Heart sounds: normal: S1, S2 Abnormal Heart Sounds: no systolic murmur, no diastolic murmur, no rub, no S3 Gallop, no S4 Gallop, no click, no other - Gastrointestinal General gastrointestinal: soft - Integumentary Integumentary: normal, normal turgor - Neurologic Neurologic: CNII-XII intact - Musculoskeletal Musculoskeletal: strength equal bilaterally, dressing in place to the right hip - Psychiatric Psychiatric: A&O x's 3, appropriate affect, intact judgment & insight Results CBC & Chem 7: 11/24/16 06:42 11/24/16 06:42 Labs: Abnormal Lab Results - Last 24 Hours (Table) 11/23/16 11/23/16 11/23/16 Range/Units 18:30 18:30 23:00 WBC 11.3 H (3.8-10.6) k/uL RBC 3.25 L (3.80-5.40) m/uL Hgb 10.1 L (11.4-16.0) gm/dL Hct 31.6 L (34.0-46.0) % Plt Count (150-450) k/uL Neutrophils # 9.4 H (1.3-7.7) k/uL Lymphocytes # 0.8 L (1.0-4.8) k/uL BUN 21 H (7-17) mg/dL Glucose 120 H (74-99) mg/dL Total Protein 5.8 L (6.3-8.2) g/dL Albumin 3.3 L (3.5-5.0) g/dL Urine Protein Trace H (Negative) 11/24/16 11/24/16 Range/Units 06:42 06:42 WBC (3.8-10.6) k/uL RBC 2.85 L (3.80-5.40) m/uL Hgb 9.0 L (11.4-16.0) gm/dL Hct 28.3 L (34.0-46.0) % Plt Count 132 L (150-450) k/uL Neutrophils # (1.3-7.7) k/uL Lymphocytes # 0.8 L (1.0-4.8) k/uL BUN 19 H (7-17) mg/dL Glucose 106 H (74-99) mg/dL Total Protein 5.4 L (6.3-8.2) g/dL Albumin 3.1 L (3.5-5.0) g/dL Urine Protein (Negative) Assessment and Plan Plan: 1. Acute right hip fracture under the care of Dr. Pond status post IM screw. Continue current pain management. Continue PT and OT per orthopedics. Incentive spirometry to reduce incidence of atelectasis and hospital-acquired pneumonia. Lovenox for DVT prophylaxis. 2. Chronic kidney failure CKD stage II. Avoid nephrotoxic agents, provide IV fluids and monitor kidney function. 3. CAD and severe ischemic cardiomyopathy with low ejection fraction of 50%: Patient has been on metoprolol and isosorbide. 4. Hypertension well controlled on metoprolol, lisinopril--on hold secondary to hypotension. IV fluid bolus of 500 mL. Parameters placed on medications. 5. Sjogren syndrome: Patient using Salagen and Restasis eyedrops. Continue PreserVision 6. Chronic anemia history of GI bleed without any recent bleeding. 7. Chronic pain syndrome: Patient has been on Percocet. 8. Overactive bladder: Has been on Detrol. 9. Mild memory loss: No change remain on conservative management. 10. DVT prophylaxis: Patient will be on heparin subcutaneous. 11. GI prophylaxis. Protonix 40 mg orally once every day. Patient will be admitted to hospital for a minimum of 2 nights stay. Discharge plan: Return to [facility] Impression and plan of care have been directed as dictated by the signing physician. Caitlin Francis nurse practitioner acting as scribe for signing physician.
[2016-11-24] MEDS: HYDROmorphone 1 MG/ML 1 ML SYRINGE IVP PRN ×2 (13:34→18:49)
[2016-11-24] MEDS: ESCITALOPRAM 10 MG TAB PO SCH (15:27)
[2016-11-24] MEDS: ceFAZolin 2 GM in SODIUM CHLORIDE 0.9% 100 ML IVPB SCH ×2 (15:27→23:08)
[2016-11-24] MEDS ORDERED: NON-FORMULARY DRUG (Ubidecarenone [Co Q-10] 100 MG) PO SCH (17:30)
[2016-11-24] MEDS: OLANZapine 10 MG TAB PO SCH (18:24)
[2016-11-24] MEDS: MULTIVITAMINS, THERA 1 EACH TAB PO SCH (18:24)
[2016-11-24] MEDS: LACTOBACILLUS ACIDOPH & BULGAR 1 EACH PACKET PO SCH (18:25)
[2016-11-24] MEDS: CHOLECALCIFEROL 1,000 UNIT TAB PO SCH (20:13)
[2016-11-24] MEDS: VIT A,C & E-LUTEIN-MINERALS 1 EACH TAB PO SCH (20:13)
[2016-11-25] MEDS: METOPROLOL SUCCINATE (ER) 50 MG TAB.ER.24H PO SCH (08:03)
[2016-11-25] MEDS: ISOSORBIDE MONONITRATE ER 60 MG TAB.ER.24H PO SCH (08:03)
[2016-11-25] MEDS: PILOCARPINE 5 MG TAB PO SCH ×2 (10:39→20:37)
[2016-11-25] MEDS: ENOXAPARIN 30 MG/0.3 ML SYRINGE SQ SCH (10:39)
[2016-11-25] MEDS: OXYBUTYNIN XL 5 MG TAB.ER.24 PO SCH (10:40)
[2016-11-25] MEDS: ESCITALOPRAM 10 MG TAB PO SCH (10:40)
[2016-11-25] MEDS: PANTOPRAZOLE 40 MG TABLET PO SCH (10:40)
[2016-11-25] MEDS: ASCORBIC ACID 500 MG TAB PO SCH (10:40)
[2016-11-25] MEDS: oxyCODONE-APAP 5-325MG 1 EACH TAB PO PRN ×2 (10:42→17:42)
[2016-11-25] MEDS: SODIUM CHLORIDE 0.9% 1,000 ML IV SCH (14:51)
--- NOTE | 2016-11-25 15:13 | P.PN ---
Subjective This is a 79-year-old female patient of Dr. Garcia's with past medical history of asthma, CAD with ischemic cardiomyopathy, previous history of lung cancer post resection who is known to have severe lower back pain. Patient had back surgery in May [address] Simmons. She was recently hospitalized in October for acute mental status changes secondary to Klebsiella pneumoniae ESBL acute urinary tract infection. Patient was transferred by EMS from home. She is currently residing at [facility] but her picks her up and takes her for car rides and yesterday, he took her home and she apparently was ambulating without a walker. She turned to walk and lost her balance falling onto her right side. She developed increasing pain to her right hip, knee and ankle. She denies any head injury or loss of consciousness. No fever or chills. No nausea vomiting, diarrhea. She denies any blood in her stools. Patient was admitted to the hospital in the care of Dr. Pond and is status post IM screw done this morning. Patient is seen in the postop period and noted to have hypotension for which a fluid bolus of 500 mL ordered. She has a Baez catheter in place. Family is at the bedside and have been updated. Her lisinopril has been discontinued and parameters placed on other blood pressure medications. 11/25: No new complaints today. Orthopedics has determine weightbearing as tolerated. We'll plan to recheck labs tomorrow. Anticipate possible discharge in the next 24 hours. Objective - Vital Signs Vital signs: Vital Signs Temp 98.0 F 11/25/16 07:59 Pulse 87 11/25/16 07:59 Resp 16 11/25/16 07:59 BP 156/67 11/25/16 08:39 Pulse Ox 93 L 11/25/16 07:59 Intake & Output 11/24/16 11/25/16 11/25/16 18:59 06:59 18:59 Intake Total 1050 1600 Output Total 300 400 Balance 750 1200 Intake: IV 450 Intake, IV Titration 600 1600 Amount Sodium Chloride 0.9% 1, 500 000 ml @ 500 mls/hr IV . Q2H [facility] Rx#:[id number] ceFAZolin 2 gm In Sodium 100 1600 Chloride 0.9% 100 ml @ 100 mls/hr IVPB Q8HR [facility] Rx#:[id number] Output: Urine 200 400 Estimated Blood Loss 100 Other: Voiding Method Indwelling Catheter Indwelling Catheter Incontinent # Voids 3 - Exam General appearance: cooperative, no acute distress - EENT Eyes: anicteric sclerae, EOMI, PERRLA, dentition normal ENT: hard of hearing, NA/AT, normal oropharynx - Neck Neck: normal ROM - Respiratory Respiratory: bilateral: CTA, negative: diminished, dullness, wheezing - Cardiovascular Rhythm: regular Heart sounds: normal: S1, S2 Abnormal Heart Sounds: no systolic murmur, no diastolic murmur, no rub, no S3 Gallop, no S4 Gallop, no click, no other - Gastrointestinal General gastrointestinal: soft - Integumentary Integumentary: normal, normal turgor - Neurologic Neurologic: CNII-XII intact - Musculoskeletal Musculoskeletal: strength equal bilaterally, dressing in place to the right hip - Psychiatric Psychiatric: A&O x's 3, appropriate affect, intact judgment & insight - Labs CBC & Chem 7: 11/24/16 06:42 11/24/16 06:42 Assessment and Plan Plan: 1. Acute right hip fracture under the care of Dr. Pond status post IM screw. Continue current pain management. Continue PT and OT per orthopedics. Incentive spirometry to reduce incidence of atelectasis and hospital-acquired pneumonia. Lovenox for DVT prophylaxis. 2. Chronic kidney failure CKD stage II. Avoid nephrotoxic agents, provide IV fluids and monitor kidney function. 3. CAD and severe ischemic cardiomyopathy with low ejection fraction of 50%: Patient has been on metoprolol and isosorbide. 4. Hypertension well controlled on metoprolol, lisinopril--on hold secondary to hypotension. IV fluid bolus of 500 mL. Parameters placed on medications. 5. Sjogren syndrome: Patient using Salagen and Restasis eyedrops. Continue PreserVision 6. Chronic anemia history of GI bleed without any recent bleeding. 7. Chronic pain syndrome: Patient has been on Percocet. 8. Overactive bladder: Has been on Detrol. 9. Mild memory loss: No change remain on conservative management. 10. DVT prophylaxis: Patient will be on heparin subcutaneous. 11. GI prophylaxis. Protonix 40 mg orally once every day. Patient will be admitted to hospital for a minimum of 2 nights stay. Discharge plan: Return to [facility] Impression and plan of care have been directed as dictated by the signing physician. Caitlin Francis nurse practitioner acting as scribe for signing physician.
[2016-11-25] MEDS: MULTIVITAMINS, THERA 1 EACH TAB PO SCH (17:42)
[2016-11-25] MEDS: LACTOBACILLUS ACIDOPH & BULGAR 1 EACH PACKET PO SCH (17:42)
[2016-11-25] MEDS: OLANZapine 10 MG TAB PO SCH (17:42)
[2016-11-25] MEDS: CHOLECALCIFEROL 1,000 UNIT TAB PO SCH (20:39)
[2016-11-25] MEDS: VIT A,C & E-LUTEIN-MINERALS 1 EACH TAB PO SCH (20:39)
--- NOTE | 2016-11-25 21:08 | P.PN ---
Subjective Principal diagnosis: Right hip fracture, S/P IM hip screw Patient seen at bedside today. She is post op day #1 from IM right hip screw for hip fracture. She has no new complaints. She has post op pain as expected at the surgical site. She denies numbness, tingling or calf pain. ROS is negative for fever, chills, chest pain, SOB or other Objective - Vital Signs Vital signs: Vital Signs Temp 98 F 11/25/16 14:41 Pulse 87 11/25/16 07:59 Resp 20 11/25/16 19:13 BP 133/83 11/25/16 19:13 Pulse Ox 93 L 11/25/16 19:13 Intake & Output 11/25/16 11/25/16 11/26/16 06:59 18:59 06:59 Intake Total 1600 100 Output Total 400 Balance 1200 100 Intake: Intake, IV Titration 1600 100 Amount ceFAZolin 2 gm In Sodium 1600 100 Chloride 0.9% 100 ml @ 100 mls/hr IVPB Q8HR [facility] Rx#:[id number] Output: Urine 400 Other: Voiding Method Indwelling Catheter Incontinent # Voids 3 # Bowel Movements 1 - Exam Inspection of lower extremity reveals benign surgical wounds. There is no active bleeding, drainage, or dehiscence. Neuro status intact with motor and sensation throughout the lower extremity. Calf is soft and nontender. 2+ pulses and less than 2 sec cap refill present. - Constitutional General appearance: Present: no acute distress - Psychiatric Psychiatric: Present: A&O x's 3, appropriate affect, intact judgment & insight - Labs CBC & Chem 7: 11/24/16 06:42 11/24/16 06:42 Assessment and Plan (1) Hip fracture, right Narrative/Plan: She will continue with routine postop orthopedic protocol including wound care, PT, pain management, DVT prophylaxis, and medical management. Expect transfer to [facility] in next 1-2 days Status: Acute Time with Patient: Less than 30
[2016-11-26] MEDS: oxyCODONE-APAP 5-325MG 1 EACH TAB PO PRN ×3 (03:13→21:30)
[2016-11-26] MEDS: SODIUM CHLORIDE 0.9% 1,000 ML IV SCH (06:28)
[2016-11-26 07:22] LABS: Anion Gap 6 mmol/L; Blood Urea Nitrogen 21 mg/dL (7-17); Calcium 8.1 mg/dL (8.4-10.2); Carbon Dioxide 20 mmol/L (22-30); Chloride 111 mmol/L (98-107); Glucose 104 mg/dL (74-99); Non-African American GFR(MDRD) >60 (>60 ml/min/1.73 sqM); Potassium 4.1 mmol/L (3.5-5.1); Sodium 137 mmol/L (137-145)
[2016-11-26 07:31] LABS: Basophils % (A) 0 %; CH 31.4; CHCM 30.8; Eosinophils # (A) 0.1 k/uL (0-0.7); Eosinophils % (A) 1 %; HCT 21.1 % (34.0-46.0); HDW 2.42; Hypochromasia Slight; Luc # (Auto) 0.15; Luc % (Auto) 2; Lymphocytes # (A) 0.8 k/uL (1.0-4.8); Lymphocytes % (A) 9 %; MCH 31.6 pg (25.0-35.0); MCHC 30.9 g/dL (31.0-37.0); MCV 102.4 fL (80.0-100.0); Macrocytosis Slight; Mean Platelet Volume 8.8; Monocytes # (A) 0.7 k/uL (0-1.0); Monocytes % (A) 7 %; Neutrophils # (A) 7.7 k/uL (1.3-7.7); Neutrophils % (A) 81 %; RBC 2.06 m/uL (3.80-5.40); RDW 13.1 % (11.5-15.5); WBC 9.5 k/uL (3.8-10.6); WBC (Perox) 9.86
[2016-11-26 07:48] LABS: HGB 6.5 gm/dL (11.4-16.0)
[2016-11-26] MEDS ORDERED: FUROSEMIDE 10 MG/ML 2 ML VIAL IV ONE (08:13)
[2016-11-26] MEDS: PANTOPRAZOLE 40 MG TABLET PO SCH (09:12)
[2016-11-26] MEDS: PILOCARPINE 5 MG TAB PO SCH ×2 (09:12→21:30)
[2016-11-26] MEDS: METOPROLOL SUCCINATE (ER) 50 MG TAB.ER.24H PO SCH (09:12)
[2016-11-26] MEDS: ISOSORBIDE MONONITRATE ER 60 MG TAB.ER.24H PO SCH (09:12)
[2016-11-26] MEDS: ESCITALOPRAM 10 MG TAB PO SCH (09:12)
[2016-11-26] MEDS: ENOXAPARIN 30 MG/0.3 ML SYRINGE SQ SCH (09:12)
[2016-11-26] MEDS: OXYBUTYNIN XL 5 MG TAB.ER.24 PO SCH (09:12)
[2016-11-26] MEDS: ASCORBIC ACID 500 MG TAB PO SCH (09:12)
--- NOTE | 2016-11-26 09:39 | CDI ---
In responding to this query, please exercise your independent professional judgment. The [facility] Coding Staff and Clinical Documentation Specialists appreciate your assistance in clarifying documentation, maintaining compliance with coding guidelines, accurately documenting patients condition and capturing severity of illness. The fact that a question is asked does not imply that any particular answer is desired or expected. Communication forms are a method of clarifying documentation and are not made part of the Legal Health Record. Thank you in advance for your clarification. Last Revision, Apr 2016 Gemma Slaughter [address] [place] [address] Documentation Clarification Form Date: 11/26/2016 9:23:00 AM From: Alexia Warren RN, CCDS Admit Date: 11/23/2016 6:25:00 PM Patient Name: Malena Victor Visit Number: [id number] Dr. Melany Freedman/Caitlin Francis CNP Hypotension in the post-operative period is documented in the Medical Consult . Patients Admitting Diagnosis: "Hip fracture, right ." Post-Operative Diagnosis: "Right basicervical hip fracture ." Procedure performed: "Operative fixation of right hip fracture with long intramedullary hip screw." 11/24 Medical Consult: :Patient is seen in the postop period and noted to have hypotension for which a fluid bolus of 500 mL ordered." Estimated Blood Loss (ml): 100 History/Risk Factors: CKD stage 2, chronic anemia. CAD. HTN Clinical Indicators: Admission B/P 166/79, P-op in P-op Period 108/54 Hgb: 10.1 on admission, 9 pre-op, 6.5 p-op day 1 Treatment: 0.9% IVF @ 75 cc/hr 0.9% IVF Bolus: 500cc 1 Unit PRBC's ordered Consults: Medical and Ortho In order to accurately reflect this patients severity of illness, please clarify if the post-operative diagnosis is: An expected post-procedural or post-surgical condition Integral to the procedure Inherent to the procedure An unexpected post-procedural or post-surgical condition, related to surgical care Other, please specify Unable to determine Please document in your progress notes and discharge summary in order to capture severity of illness and risk of mortality. Include clinical findings that support your diagnosis. FYI: Press F11 to launch patient chart Place X here if this finding has no clinical significance, is not applicable or if you are not able to provide any additional documentation. MTDD
[2016-11-26] MEDS ORDERED: FUROSEMIDE 10 MG/ML 4 ML VIAL IV STA (12:25)
[2016-11-26] MEDS ORDERED: KETOROLAC 30 MG/ML 1 ML VIAL IVP SCH (12:30)
--- NOTE | 2016-11-26 14:36 | P.PN ---
Subjective This is a 79-year-old female patient of Dr. Garcia's with past medical history of asthma, CAD with ischemic cardiomyopathy, previous history of lung cancer post resection who is known to have severe lower back pain. Patient had back surgery in May [address] Simmons. She was recently hospitalized in October for acute mental status changes secondary to Klebsiella pneumoniae ESBL acute urinary tract infection. Patient was transferred by EMS from home. She is currently residing at [facility] but her picks her up and takes her for car rides and yesterday, he took her home and she apparently was ambulating without a walker. She turned to walk and lost her balance falling onto her right side. She developed increasing pain to her right hip, knee and ankle. She denies any head injury or loss of consciousness. No fever or chills. No nausea vomiting, diarrhea. She denies any blood in her stools. Patient was admitted to the hospital in the care of Dr. Pond and is status post IM screw done this morning. Patient is seen in the postop period and noted to have hypotension for which a fluid bolus of 500 mL ordered. She has a Baez catheter in place. Family is at the bedside and have been updated. Her lisinopril has been discontinued and parameters placed on other blood pressure medications. 11/25: No new complaints today. Orthopedics has determine weightbearing as tolerated. We'll plan to recheck labs tomorrow. Anticipate possible discharge in the next 24 hours. 11/26: Hemoglobin today is 6.5 and patient will be transfused 1 unit of packed RBCs. Regarding anticoagulation, patient is ALLERGIC to aspirin with placed on eliquis 2.5 mg twice daily. Anticipate discharge to [facility] tomorrow. Objective - Vital Signs Vital signs: Vital Signs Temp 97.5 F L 11/26/16 13:26 Pulse 68 11/26/16 13:26 Resp 18 11/26/16 13:26 BP 117/63 11/26/16 13:26 Pulse Ox 100 11/26/16 12:56 Intake & Output 11/25/16 11/26/16 11/26/16 18:59 06:59 18:59 Intake Total 100 500 200 Output Total 800 Balance 100 -300 200 Intake: Intake, IV Titration 100 Amount ceFAZolin 2 gm In Sodium 100 Chloride 0.9% 100 ml @ 100 mls/hr IVPB Q8HR [facility] Rx#:[id number] Oral 500 200 Blood Product 0 Rc As-1 Unit 0 [id number] Output: Urine 800 Other: Voiding Method Incontinent Incontinent Incontinent # Bowel Movements 1 - Exam General appearance: cooperative, no acute distress - EENT Eyes: anicteric sclerae, EOMI, PERRLA, dentition normal ENT: hard of hearing, NA/AT, normal oropharynx - Neck Neck: normal ROM - Respiratory Respiratory: bilateral: CTA, negative: diminished, dullness, wheezing - Cardiovascular Rhythm: regular Heart sounds: normal: S1, S2 Abnormal Heart Sounds: no systolic murmur, no diastolic murmur, no rub, no S3 Gallop, no S4 Gallop, no click, no other - Gastrointestinal General gastrointestinal: soft - Integumentary Integumentary: normal, normal turgor - Neurologic Neurologic: CNII-XII intact - Musculoskeletal Musculoskeletal: strength equal bilaterally, dressing in place to the right hip - Psychiatric Psychiatric: A&O x's 3, appropriate affect, intact judgment & insight - Labs CBC & Chem 7: 11/26/16 06:50 11/26/16 06:43 Labs: Abnormal Lab Results - Last 24 Hours (Table) 11/26/16 11/26/16 11/26/16 Range/Units 06:43 06:50 09:24 RBC 2.06 L (3.80-5.40) m/uL Hgb 6.5 L* D (11.4-16.0) gm/dL Hct 21.1 L (34.0-46.0) % MCV 102.4 H (80.0-100.0) fL MCHC 30.9 L (31.0-37.0) g/dL Plt Count 117 L (150-450) k/uL Lymphocytes # 0.8 L (1.0-4.8) k/uL Chloride 111 H (98-107) mmol/L Carbon Dioxide 20 L (22-30) mmol/L BUN 21 H (7-17) mg/dL Glucose 104 H (74-99) mg/dL Calcium 8.1 L (8.4-10.2) mg/dL Crossmatch See Detail Assessment and Plan Plan: 1. Acute right hip fracture under the care of Dr. Pond status post IM screw. Continue current pain management. Continue PT and OT per orthopedics. Incentive spirometry to reduce incidence of atelectasis and hospital-acquired pneumonia. Eliquis for DVT prophylaxis. 2. Chronic kidney failure CKD stage II. Avoid nephrotoxic agents, provide IV fluids and monitor kidney function. 3. CAD and severe ischemic cardiomyopathy with low ejection fraction of 50%: Patient has been on metoprolol and isosorbide. 4. Hypertension well controlled on metoprolol, lisinopril--on hold secondary to hypotension. IV fluid bolus of 500 mL. Parameters placed on medications. 5. Sjogren syndrome: Patient using Salagen and Restasis eyedrops. Continue PreserVision 6. Chronic anemia history of GI bleed without any recent bleeding. 7. Chronic pain syndrome: Patient has been on Percocet. 8. Overactive bladder: Has been on Detrol. 9. Mild memory loss: No change remain on conservative management. 10. DVT prophylaxis: Eliquis 2.5 mg twice daily. 11. GI prophylaxis. Protonix 40 mg orally once every day. 12. Acute blood loss anemia status post transfusion. Patient will be admitted to hospital for a minimum of 2 nights stay. Discharge plan: Return to [facility] Impression and plan of care have been directed as dictated by the signing physician. Caitlin Francis nurse practitioner acting as scribe for signing physician.
--- NOTE | 2016-11-26 16:16 | P.PN ---
Subjective Principal diagnosis: Right hip fracture, S/P IM hip screw Patient seen at bedside today. She is post op day 21 from IM right hip screw for hip fracture. She has no new complaints. She has post op pain as expected at the surgical site. She denies numbness, tingling or calf pain. ROS is negative for fever, chills, chest pain, SOB or other Objective - Vital Signs Vital signs: Vital Signs Temp 96.9 F L 11/26/16 15:36 Pulse 86 11/26/16 15:36 Resp 18 11/26/16 15:36 BP 159/77 11/26/16 15:36 Pulse Ox 96 11/26/16 15:36 Intake & Output 11/25/16 11/26/16 11/26/16 18:59 06:59 18:59 Intake Total 100 500 510 Output Total 800 Balance 100 -300 510 Intake: Intake, IV Titration 100 Amount ceFAZolin 2 gm In Sodium 100 Chloride 0.9% 100 ml @ 100 mls/hr IVPB Q8HR [facility] Rx#:[id number] Oral 500 200 Blood Product 310 Rc As-1 Unit 310 [id number] Output: Urine 800 Other: Voiding Method Incontinent Incontinent Incontinent # Bowel Movements 1 - Exam Inspection of lower extremity reveals benign surgical wounds. There is no active bleeding, drainage, or dehiscence. Neuro status intact with motor and sensation throughout the lower extremity. Calf is soft and nontender. 2+ pulses and less than 2 sec cap refill present. - Constitutional General appearance: Present: no acute distress - Psychiatric Psychiatric: Present: A&O x's 3, appropriate affect, intact judgment & insight - Labs CBC & Chem 7: 11/26/16 06:50 11/26/16 06:43 Labs: Abnormal Lab Results - Last 24 Hours (Table) 11/26/16 11/26/16 11/26/16 Range/Units 06:43 06:50 09:24 RBC 2.06 L (3.80-5.40) m/uL Hgb 6.5 L* D (11.4-16.0) gm/dL Hct 21.1 L (34.0-46.0) % MCV 102.4 H (80.0-100.0) fL MCHC 30.9 L (31.0-37.0) g/dL Plt Count 117 L (150-450) k/uL Lymphocytes # 0.8 L (1.0-4.8) k/uL Chloride 111 H (98-107) mmol/L Carbon Dioxide 20 L (22-30) mmol/L BUN 21 H (7-17) mg/dL Glucose 104 H (74-99) mg/dL Calcium 8.1 L (8.4-10.2) mg/dL Crossmatch See Detail Assessment and Plan (1) Hip fracture, right Narrative/Plan: She will continue with routine postop orthopedic protocol including wound care, PT, pain management, DVT prophylaxis, and medical management. Expect transfer to ECF in next 1-2 days Status: Acute Time with Patient: Less than 30
[2016-11-26] MEDS: OLANZapine 10 MG TAB PO SCH (18:02)
[2016-11-26] MEDS: LACTOBACILLUS ACIDOPH & BULGAR 1 EACH PACKET PO SCH (18:02)
[2016-11-26] MEDS ORDERED: MELATONIN 5 MG TABLET PO SCH (21:00)
[2016-11-26] MEDS ORDERED: ASPIRIN 81 MG PO SCH (21:00)
[2016-11-26] MEDS: CHOLECALCIFEROL 1,000 UNIT TAB PO SCH (21:29)
[2016-11-26] MEDS: APIXABAN 2.5 MG TABLET PO SCH (21:30)
[2016-11-26] MEDS: VIT A,C & E-LUTEIN-MINERALS 1 EACH TAB PO SCH (21:30)
[2016-11-26] MEDS: MULTIVITAMINS, PEDIATRIC 1 EACH CHEWABLE PO SCH (23:10)
[2016-11-27 07:31] LABS: CH 31.8; CHCM 32.8; HCT 29.3 % (34.0-46.0); MCH 31.5 pg (25.0-35.0); MCHC 32.2 g/dL (31.0-37.0); MCV 97.7 fL (80.0-100.0); Mean Platelet Volume 8.2; WBC 8.9 k/uL (3.8-10.6)
[2016-11-27 07:33] LABS: HGB 9.5 gm/dL (11.4-16.0)
[2016-11-27 07:34] LABS: Anion Gap 9 mmol/L; Blood Urea Nitrogen 21 mg/dL (7-17); Calcium 8.4 mg/dL (8.4-10.2); Carbon Dioxide 21 mmol/L (22-30); Chloride 107 mmol/L (98-107); Glucose 84 mg/dL (74-99); Non-African American GFR(MDRD) >60 (>60 ml/min/1.73 sqM); Potassium 3.9 mmol/L (3.5-5.1); Sodium 137 mmol/L (137-145)
[2016-11-27 08:16] VITALS: PULSE 78; RESP 17; TEMP 98
[2016-11-27 08:45] VITALS: BP 144/77
[2016-11-27] MEDS: OXYBUTYNIN XL 5 MG TAB.ER.24 PO SCH (08:49)
[2016-11-27] MEDS: PANTOPRAZOLE 40 MG TABLET PO SCH (08:49)
[2016-11-27] MEDS: METOPROLOL SUCCINATE (ER) 50 MG TAB.ER.24H PO SCH (08:49)
[2016-11-27] MEDS: ESCITALOPRAM 10 MG TAB PO SCH (08:49)
[2016-11-27] MEDS: ASCORBIC ACID 500 MG TAB PO SCH (08:49)
[2016-11-27] MEDS: ISOSORBIDE MONONITRATE ER 60 MG TAB.ER.24H PO SCH (08:50)
[2016-11-27] MEDS: PILOCARPINE 5 MG TAB PO SCH (08:50)
[2016-11-27] MEDS: APIXABAN 2.5 MG TABLET PO SCH (08:50)
[2016-11-27] MEDS ORDERED: CYCLOBENZAPRINE 5 MG TAB PO PRN (09:50)
--- NOTE | 2016-11-27 09:58 | P.DS ---
Providers Date of admission: 11/23/16 18:25 Expected date of discharge: 11/27/16 Attending physician: Raffi Pond Consults: 11/23/16 18:23 Consult Physician Stat Consulting Provider: Shimon Garcia Consult Reason/Comments: med clearance Do you want consulting provider notified?: Yes Primary care physician: Shimon Radha - Discharge Diagnosis(es) (1) Hip fracture, right Patient is 81-year-old female who was admitted through the emergency department after a fall at home that resulted in a right hip fracture. She was taken to the OR on 11/24/2016 where she underwent a closed reduction with internal fixation utilizing intramedullary hip screw/IT nail. She the tolerated procedure well without complication. Her postoperative hospital course has remained without complication. On day of discharge she is afebrile, wound is benign, tolerating by mouth meds and diet, labs within acceptable ranges, denying new complaints, voiding without difficulty, positive bowel movement, neurovascular status intact, calf is soft and nontender, abdomen soft nontender , adequate perfusion in the lower extremities. Review of systems is negative for fever, chills, chest pain, shortness breath, nausea, vomiting, dizziness, headaches, slurred speech, numbness, tingling, calf pain, abdominal pain or other. Current Visit: Yes Status: Acute Priority: Medium Procedures: Right hip intramedullary screw/IT nail Patient Condition at Discharge: Stable Plan - Discharge Summary New Discharge Prescriptions: New Docusate [Colace] 100 mg PO BID #60 capsule traMADol HCL [Ultram] 50 mg PO Q4HR PRN #60 tab PRN Reason: Pain No Action Isosorbide Mononitrate [Imdur] 60 mg PO QAM Pilocarpine HCl [Salagen] 7.5 mg PO BID L.acidoph/B.long/L.plant/B.lac [Probiotic Acidophilus Beads] 1 cap PO W/ SUPPER Tolterodine Tartrate [Detrol LA] 4 mg PO QAM Multivitamins, Thera [Multivitamin (formulary)] 1 tab PO W/SUPPER Vit C/E/Zn/Coppr/Lutein/Zeaxan [Preservision Areds 2 Softgel] 2 cap PO HS OLANZapine [ZyPREXA] 10 mg PO PC-SUPPER Escitalopram [Lexapro] 10 mg PO QAM Cholecalciferol [Vitamin D3] 1,000 unit PO HS Ubidecarenone [Co Q-10] 100 mg PO W/SUPPER Ascorbic Acid [Vitamin C] 500 mg PO QAM Lisinopril 40 mg PO QAM Lansoprazole [Prevacid] 15 mg PO QAM Metoprolol Succinate (ER) [Toprol XL] 150 mg PO QAM ALPRAZolam [Xanax] 0.25 mg PO BID oxyCODONE-APAP 5-325MG [Percocet 5-325 mg] 1 tab PO BID Discharge Medication List Isosorbide Mononitrate [Imdur] 60 mg PO QAM 07/29/13 [History] Pilocarpine HCl [Salagen] 7.5 mg PO BID 07/29/13 [History] L.acidoph/B.long/L.plant/B.lac [Probiotic Acidophilus Beads] 1 cap PO W/SUPPER 05/09/14 [History] Tolterodine Tartrate [Detrol LA] 4 mg PO QAM 05/09/14 [History] Multivitamins, Thera [Multivitamin (formulary)] 1 tab PO W/SUPPER 03/01/15 [ History] Vit C/E/Zn/Coppr/Lutein/Zeaxan [Preservision Areds 2 Softgel] 2 cap PO HS [History] Escitalopram [Lexapro] 10 mg PO QAM 08/29/15 [History] OLANZapine [ZyPREXA] 10 mg PO PC-SUPPER 08/29/15 [History] Ascorbic Acid [Vitamin C] 500 mg PO QAM 10/30/16 [History] Cholecalciferol [Vitamin D3] 1,000 unit PO HS 10/30/16 [History] Lansoprazole [Prevacid] 15 mg PO QAM 10/30/16 [History] Lisinopril 40 mg PO QAM 10/30/16 [History] Ubidecarenone [Co Q-10] 100 mg PO W/SUPPER 10/30/16 [History] ALPRAZolam [Xanax] 0.25 mg PO BID 11/23/16 [History] Metoprolol Succinate (ER) [Toprol XL] 150 mg PO QAM 11/23/16 [History] oxyCODONE-APAP 5-325MG [Percocet 5-325 mg] 1 tab PO BID 11/23/16 [History] Docusate [Colace] 100 mg PO BID #60 capsule 11/27/16 [Rx] traMADol HCL [Ultram] 50 mg PO Q4HR PRN #60 tab 11/27/16 [Rx] Follow up Appointment(s)/Referral(s): Shimon Garcia MD [Primary Care Provider] - 1-2 days Serjio Burciaga, [NON-STAFF] - As Needed Raffi Pond MD [Medical Doctor] - 10 Days Activity/Diet/Wound Care/Special Instructions: Touchdown weightbearing Keep wound clean and dry Follow-up with Dr. Pond in office, [phone] Take meds as directed May shower in 24 hours Discharge Disposition: TRANSFER TO SNF/ECF
[2016-11-27] MEDS: oxyCODONE-APAP 5-325MG 1 EACH TAB PO PRN ×2 (10:50→16:42)
--- NOTE | 2016-11-27 11:55 | CDI ---
In responding to this query, please exercise your independent professional judgment. The [facility] Coding Staff and Clinical Documentation Specialists appreciate your assistance in clarifying documentation, maintaining compliance with coding guidelines, accurately documenting patients condition and capturing severity of illness. The fact that a question is asked does not imply that any particular answer is desired or expected. Communication forms are a method of clarifying documentation and are not made part of the Legal Health Record. Thank you in advance for your clarification. Last Revision, Apr 2016 Gemma Slaughter [address] [place] [address] Documentation Clarification Form Date: 11/27/2016 11:46:00 AM From: Alexia Warren RN, CCDS Admit Date: 11/23/2016 6:25:00 PM Patient Name: Malena Victor Visit Number: [id number] Dr. Melany Freedman/Caitlin Francis Acute Blood loss anemia is documented in the Medical Progress Notes. Patients Admitting Diagnosis: fall with right hip Fx Post-Operative Diagnosis: ". Right basicervical hip fracture." Procedure performed: "Operative fixation of right hip fracture with long intramedullary hip screw." History/Risk Factors: Atrial Fib, CAD, DM, [place], Renal disease Clinical Indicators: Labs: HGB 10.1/9/6.5- 1 unit PC transfused/9.5 EBL: 100 ml Treatment: 1Unit PRBC's transfused Consults: Orthopedics In order to accurately reflect this patients severity of illness, please clarify if the post-operative diagnosis is: An expected post-procedural or post-surgical condition Integral to the procedure Inherent to the procedure An unexpected post-procedural or post-surgical condition, related to surgical care Other, please specify Unable to determine Please document in your progress notes and discharge summary in order to capture severity of illness and risk of mortality. Include clinical findings that support your diagnosis. FYI: Press F11 to launch patient chart documented in progress notes MTDD
--- NOTE | 2016-11-27 15:05 | P.PN ---
<Caitlin Francis A - Last Filed: 11/27/16 15:01> Subjective This is a 79-year-old female patient of Dr. Garcia'farzaneh with past medical history of asthma, CAD with ischemic cardiomyopathy, previous history of lung cancer post resection who is known to have severe lower back pain. Patient had back surgery in May [address] Simmons. She was recently hospitalized in October for acute mental status changes secondary to Klebsiella pneumoniae ESBL acute urinary tract infection. Patient was transferred by EMS from home. She is currently residing at [facility] but her picks her up and takes her for car rides and yesterday, he took her home and she apparently was ambulating without a walker. She turned to walk and lost her balance falling onto her right side. She developed increasing pain to her right hip, knee and ankle. She denies any head injury or loss of consciousness. No fever or chills. No nausea vomiting, diarrhea. She denies any blood in her stools. Patient was admitted to the hospital in the care of Dr. Pond and is status post IM screw done this morning. Patient is seen in the postop period and noted to have hypotension for which a fluid bolus of 500 mL ordered. She has a Baez catheter in place. Family is at the bedside and have been updated. Her lisinopril has been discontinued and parameters placed on other blood pressure medications. 11/25: No new complaints today. Orthopedics has determine weightbearing as tolerated. We'll plan to recheck labs tomorrow. Anticipate possible discharge in the next 24 hours. 11/26: Hemoglobin today is 6.5 and patient will be transfused 1 unit of packed RBCs. Regarding anticoagulation, patient is ALLERGIC to aspirin with placed on eliquis 2.5 mg twice daily. Anticipate discharge to [facility] tomorrow. 11/27: Repeat hemoglobin today is at 9.5. Patient will be started on Lasix and potassium at the long-term. Medication reconciliation completed. Eliquis is for DVT prophylaxis. Objective - Vital Signs Vital signs: Vital Signs Temp 98 F 11/27/16 08:14 Pulse 78 11/27/16 08:14 Resp 17 11/27/16 08:14 BP 144/77 11/27/16 08:14 Pulse Ox 91 L 11/27/16 08:14 Intake & Output 11/26/16 11/27/16 11/27/16 18:59 06:59 18:59 Intake Total 510 Output Total 100 Balance 410 Intake: Oral 200 Blood Product 310 Rc As-1 Unit 310 [id number] Output: Urine 100 Other: Voiding Method Incontinent Incontinent Incontinent # Voids 1 - Exam General appearance: cooperative, no acute distress - EENT Eyes: anicteric sclerae, EOMI, PERRLA, dentition normal ENT: hard of hearing, NA/AT, normal oropharynx - Neck Neck: normal ROM - Respiratory Respiratory: bilateral: CTA, negative: diminished, dullness, wheezing - Cardiovascular Rhythm: regular Heart sounds: normal: S1, S2 Abnormal Heart Sounds: no systolic murmur, no diastolic murmur, no rub, no S3 Gallop, no S4 Gallop, no click, no other - Gastrointestinal General gastrointestinal: soft - Integumentary Integumentary: normal, normal turgor - Neurologic Neurologic: CNII-XII intact - Musculoskeletal Musculoskeletal: strength equal bilaterally, dressing in place to the right hip - Psychiatric Psychiatric: A&O x's 3, appropriate affect, intact judgment & insight - Labs CBC & Chem 7: 11/27/16 06:47 11/27/16 06:47 Labs: Abnormal Lab Results - Last 24 Hours (Table) 11/26/16 11/27/16 11/27/16 Range/Units 09:24 06:47 06:47 RBC 3.00 L (3.80-5.40) m/uL Hgb 9.5 L D (11.4-16.0) gm/dL Hct 29.3 L (34.0-46.0) % Carbon Dioxide 21 L (22-30) mmol/L BUN 21 H (7-17) mg/dL Crossmatch See Detail Assessment and Plan Plan: 1. Acute right hip fracture under the care of Dr. Pond status post IM screw. Continue current pain management. Continue PT and OT per orthopedics. Incentive spirometry to reduce incidence of atelectasis and hospital-acquired pneumonia. Eliquis for DVT prophylaxis. 2. Chronic kidney failure CKD stage II. Avoid nephrotoxic agents, provide IV fluids and monitor kidney function. 3. CAD and severe ischemic cardiomyopathy with low ejection fraction of 50%: Patient has been on metoprolol and isosorbide. 4. Hypertension well controlled on metoprolol, lisinopril--on hold secondary to hypotension expected after anesthesia. IV fluid bolus of 500 mL. Parameters placed on medications. 5. Sjogren syndrome: Patient using Salagen and Restasis eyedrops. Continue PreserVision 6. Chronic anemia history of GI bleed without any recent bleeding. 7. Chronic pain syndrome: Patient has been on Percocet. 8. Overactive bladder: Has been on Detrol. 9. Mild memory loss: No change remain on conservative management. 10. DVT prophylaxis: Eliquis 2.5 mg twice daily. 11. GI prophylaxis. Protonix 40 mg orally once every day. 12. Acute blood loss anemia status post transfusion, unexpected. 13. Acute diastolic heart failure. Patient started on Lasix and potassium Discharge plan: Return to [facility] Impression and plan of care have been directed as dictated by the signing physician. Caitlin Francis nurse practitioner acting as scribe for signing physician. <Melany Freedman - Last Filed: 12/10/16 14:22> Objective - Vital Signs Vital signs: Vital Signs Temp 98 F 11/27/16 08:14 Pulse 78 11/27/16 08:14 Resp 17 11/27/16 08:14 BP 144/77 11/27/16 08:14 Pulse Ox 91 L 11/27/16 08:14 - Labs CBC & Chem 7: 11/27/16 06:47 11/27/16 06:47 Assessment and Plan Plan: acute blood loss anemia. expected from traumatic injury with hematoma formation , along with expected blood losses from surgery
[2016-11-27] MEDS: LACTOBACILLUS ACIDOPH & BULGAR 1 EACH PACKET PO SCH (17:40)
[2016-11-27] MEDS: MULTIVITAMINS, PEDIATRIC 1 EACH CHEWABLE PO SCH (17:41)
== END 2016-11-27 17:53 | DRG 480 ==
LOC: EC 16:29 → 3SUR 18:25
PROVIDERS: ADMIT Orthopaedic Surgery; ATTEND Orthopaedic Surgery
PROC: 0QS836Z Reposition Right Femoral Shaft with Intramedullary Internal Fixation Device, Percutaneous Approach (ICD-10-PCS; principal; 2016-11-24 07:01)
PROC: 30233N1 Transfusion of Nonautologous Red Blood Cells into Peripheral Vein, Percutaneous Approach (ICD-10-PCS; 2016-11-26)
DX: S72.141A Displaced intertrochanteric fracture of right femur, initial encounter for closed fracture (principal); I50.31 Acute diastolic (congestive) heart failure; I95.9 Hypotension, unspecified; M35.00 Sjogren syndrome, unspecified; I25.5 Ischemic cardiomyopathy; F03.90 Unspecified dementia, unspecified severity, without behavioral disturbance, psychotic disturbance, mood disturbance, and anxiety; I13.0 Hypertensive heart and chronic kidney disease with heart failure and stage 1 through stage 4 chronic kidney disease, or unspecified chronic kidney disease; D62 Acute posthemorrhagic anemia; N18.2 Chronic kidney disease, stage 2 (mild); I25.10 Atherosclerotic heart disease of native coronary artery without angina pectoris; J45.909 Unspecified asthma, uncomplicated; T46.4X5A Adverse effect of angiotensin-converting-enzyme inhibitors, initial encounter; R32 Unspecified urinary incontinence; G47.33 Obstructive sleep apnea (adult) (pediatric); R29.6 Repeated falls; M81.0 Age-related osteoporosis without current pathological fracture; G89.4 Chronic pain syndrome; M19.90 Unspecified osteoarthritis, unspecified site; M21.751 Unequal limb length (acquired), right femur; N32.81 Overactive bladder; H91.90 Unspecified hearing loss, unspecified ear; M54.5 Low back pain; Z82.3 Family history of stroke; Z93.3 Colostomy status; Z85.048 Personal history of other malignant neoplasm of rectum, rectosigmoid junction, and anus; Z85.3 Personal history of malignant neoplasm of breast; Z87.01 Personal history of pneumonia (recurrent); Z85.118 Personal history of other malignant neoplasm of bronchus and lung; Z90.2 Acquired absence of lung [part of]; Z88.6 Allergy status to analgesic agent; Z79.899 Other long term (current) drug therapy; Z80.9 Family history of malignant neoplasm, unspecified; Z84.1 Family history of disorders of kidney and ureter; Z83.2 Family history of diseases of the blood and blood-forming organs and certain disorders involving the immune mechanism; Z90.49 Acquired absence of other specified parts of digestive tract; Z90.710 Acquired absence of both cervix and uterus; Z98.42 Cataract extraction status, left eye; Z98.41 Cataract extraction status, right eye; Z87.440 Personal history of urinary (tract) infections; Z87.81 Personal history of (healed) traumatic fracture; Z91.81 History of falling; Z87.19 Personal history of other diseases of the digestive system; Z88.1 Allergy status to other antibiotic agents; Z79.891 Long term (current) use of opiate analgesic; Z91.011 Allergy to milk products; Z88.5 Allergy status to narcotic agent; Z88.0 Allergy status to penicillin; Z88.8 Allergy status to other drugs, medicaments and biological substances; Z91.018 Allergy to other foods; W01.0XXA Fall on same level from slipping, tripping and stumbling without subsequent striking against object, initial encounter; Y92.018 Other place in single-family (private) house as the place of occurrence of the external cause
CPT/HCPCS: 71010; 73502; 80048; 80053; 81003; 85025; 85027; 85610; 85730; 86850; 86900; 86901; 86920; 88304; 88311; 88341; 88342; 93005; 94760; 96361; 96374; 96375; 99285

== ENCOUNTER → 2017-04-14 | Outpatient (CLI) | payer MEDICARE ==
--- NOTE | 2017-04-14 12:12 | FL ---
EXAMINATION TYPE: FL barium swallow DATE OF EXAM: 04/14/2017 CLINICAL HISTORY: Progressive dysphagia over the last few months. TECHNIQUE: A double contrast esophagram is performed utilizing air and barium. A total of 2 minutes and 22 seconds of fluoroscopic time was utilized during procedure. 1 ounce thick and 1 ounce thin ba rium with 1 packet of crystals were utilized for the examination. 38 fluoroscopic images were saved. COMPARISON: None FINDINGS: Calcified hilar lymph nodes are seen, partially obscuring midthoracic esophageal visualizat ion. The esophagus shows delayed motility with blunted secondary wave and tertiary contractions in th e gravity independent and dependent portions of the examination. Functional stricture is seen at the gastroesophageal junction with severely delayed propulsion. No mechanical stricture as contrast even tually extends through a patent gastroesophageal junction without narrowing. No evidence of hiatal he rnia. Moderate gastroesophageal reflux is present in the gravity independent portion of the examinati on without the utilization of the Valsalva maneuver. Moderate intraesophageal reflux was also demonst rated throughout the entirety of the exam. IMPRESSION: 1. Functional stricture without evidence of mechanical stricture at the gastroesophageal junction wit h severely delayed propulsion through the gastroesophageal junction consistently. 2. Findings most consistent with presbyesophagus. 3. Moderate gastroesophageal reflux and intraesophageal reflux throughout the examination.
== END | disposition home or self-care (01) ==
LOC: RADFLMAIN 10:52
PROVIDERS: ATTEND Otolaryngology
DX: K21.9 Gastro-esophageal reflux disease without esophagitis (principal)
CPT/HCPCS: 74220

== ENCOUNTER 2017-05-12 08:25 | Day surgery (SDC) | payer MEDICARE ==
[2017-05-07 15:42] VITALS: BMI 21.9
[~2017-05-12 08:25] MED LIST: LACTATED RINGERS 1,000 ML IV SCH
[2017-05-12 09:18] VITALS: RESP 18; TEMP 97
[2017-05-12] MEDS ORDERED: KETAMINE 10 MG/ML 20 ML VIAL ONE (09:26)
[2017-05-12] MEDS ORDERED: PROPOFOL 10 MG/ML 20 ML VIAL IV ONE (09:26)
[2017-05-12 10:11] VITALS: BP 154/78; PULSE 69
--- NOTE | 2017-05-12 10:30 | P.PCN ---
Date of Procedure: 05/12/17 Procedure(s) Performed: Procedure: Esophagogastroduodenoscopy and biopsy. Preoperative diagnosis: Cough and abnormal barium swallow. Postoperative diagnosis: 1. Sliding hiatal hernia with no obvious esophagitis or complicated reflux disease. 2. Mild gastritis with no ulcers or gastric outlet obstruction. 3. Retained thick secretions in the stomach and duodenum raising the possibility of some degree of gastroparesis. 4. Multiple biopsies obtained from the antrum and esophagus. Preparation and sedation: Was provided by anesthesia. Brief clinical history: The patient is an 82-year-old female who is scheduled for this evaluation because of issues with swallowing and cough of several months duration. The patient reported avoiding certain foods including vegetables because of her difficulty. She had an upper GI last month that showed evidence of functional stricture and possible presbyesophagus. The patient has history of Sjogren's syndrome. No alarm symptoms. Procedure: With the patient on her left lateral decubitus position and after informed consent and adequate sedation, I passed the Olympus-GIF 160 video upper endoscope through the cricopharyngeus down the esophagus. GE junction was around 35 cm from the incisors and there was a small sliding hiatal hernia but no obvious esophagitis or complicated reflux disease. No stricture was seen. The endoscope was then passed into the stomach which was insufflated with air and inspected in detail including the retroflex view in the cardia. There was some mottling and erythema in the stomach most obvious in the antrum and immediate prepyloric area but there were no ulcers or erosions. Pyloric channel did not show any ulcers and there was no evidence of mechanical obstruction. Post bulbar area and descending duodenum appeared within normal limits. There was thick secretions in the stomach and duodenum raising the possibility of some degree of gastroparesis although there were no phytobezoar or other undigested food. I obtained biopsies from the antrum and esophagus then the endoscope was withdrawn. The patient tolerated the procedure well. Plan: The patient was reassured. Will await biopsy results. In the meantime, will continue medical therapy and she will follow up with you as planned. I will see her in follow-up and keep you updated on her progress.
== END 2017-05-12 10:41 | disposition home or self-care (01) ==
LOC: ORWHC2ENDO 08:25
DX: K29.50 Unspecified chronic gastritis without bleeding (principal); K20.9 Esophagitis, unspecified; K44.9 Diaphragmatic hernia without obstruction or gangrene; M35.00 Sjogren syndrome, unspecified; I25.10 Atherosclerotic heart disease of native coronary artery without angina pectoris; J45.909 Unspecified asthma, uncomplicated; I10 Essential (primary) hypertension; M19.90 Unspecified osteoarthritis, unspecified site; G47.33 Obstructive sleep apnea (adult) (pediatric); Z79.891 Long term (current) use of opiate analgesic; Z79.899 Other long term (current) drug therapy; Z88.6 Allergy status to analgesic agent; Z88.0 Allergy status to penicillin; Z88.8 Allergy status to other drugs, medicaments and biological substances
CPT/HCPCS: 88305; 43239; J2704

== ENCOUNTER 2017-06-20 08:05 | Inpatient (IN) | payer MEDICARE ==
[2017-06-20] MEDS ORDERED: ACETAMINOPHEN TAB 500 MG TAB PO STA (08:26)
--- NOTE | 2017-06-20 08:30 | ED ---
General Adult HPI - General Chief complaint: Weakness Stated complaint: Weakness Time Seen by Provider: 06/20/17 08:08 Source: EMS, RN notes reviewed Mode of arrival: EMS Limitations: no limitations - History of Present Illness Initial comments: 82-year-old female presents to the emergency department with a chief complaint of fever and weakness. Patient felt kind of shaky and was a little off in the beginning the week and it got better. Yesterday she had some increased weakness and today she was having some difficulty walking. She admits to some lower abdominal pain. Family states that she does have a history of UTIs and they state that this is much like that. normally patient can care of herself needing some assistance with changing. There's been no nausea or vomiting. They were concerned due to her increased weakness so they thought that they should be seen. Patient denies any recent shortness of breath, chest pain, back pain, nausea vomiting, numbness or tingling, dysuria or hematuria, constipation or diarrhea, headaches or visual changes, or any other current symptoms. - Related Data Home Medications Medication Instructions Recorded Confirmed Isosorbide Mononitrate [Imdur] 60 mg PO QAM 07/29/13 05/07/17 Pilocarpine HCl [Salagen] 7.5 mg PO BID 07/29/13 05/07/17 L.acidoph/B.long/L.plant/B.lac 1 cap PO W/SUPPER 05/09/14 05/07/17 [Probiotic Acidophilus Beads] Tolterodine Tartrate [Detrol LA] 4 mg PO QAM 05/09/14 05/07/17 Multivitamins, Thera [Multivitamin 1 tab PO W/SUPPER 03/01/15 05/07/17 (formulary)] Vit C/E/Zn/Coppr/Lutein/Zeaxan 2 cap PO HS 03/14/15 05/07/17 [Preservision Areds 2 Softgel] Escitalopram [Lexapro] 10 mg PO QAM 08/29/15 05/07/17 OLANZapine [ZyPREXA] 10 mg PO PC-SUPPER 08/29/15 05/07/17 Ascorbic Acid [Vitamin C] 500 mg PO QAM 10/30/16 05/07/17 Cholecalciferol [Vitamin D3] 1,000 unit PO HS 10/30/16 05/07/17 Lansoprazole [Prevacid] 15 mg PO QAM 10/30/16 05/07/17 Lisinopril 40 mg PO QAM 10/30/16 05/07/17 Ubidecarenone [Co Q-10] 100 mg PO W/SUPPER 10/30/16 05/07/17 Metoprolol Succinate (ER) [Toprol 150 mg PO QAM 11/23/16 05/07/17 XL] Furosemide [Lasix] 40 mg PO DAILY PRN 05/07/17 05/07/17 Previous Rx's Medication Instructions Recorded ALPRAZolam [Xanax] 0.25 mg PO BID #60 11/27/16 Docusate [Colace] 100 mg PO BID #60 capsule 11/27/16 Melatonin 5 mg PO HS tab 11/27/16 oxyCODONE-APAP 5-325MG [Percocet 1 tab PO BID #60 11/27/16 5-325 mg] traMADol HCL [Ultram] 50 mg PO Q4HR PRN #60 tab 11/27/16 Allergies Allergy/AdvReac Type Severity Reaction Status Date / Time aspirin Allergy Anaphylaxis Verified 06/20/17 08:12 caffeine Allergy Unknown Verified 06/20/17 08:12 celecoxib [From Celebrex] Allergy Rash/Hives Verified 06/20/17 08:12 codeine Allergy Anaphylaxis Verified 06/20/17 08:12 doxycycline Allergy Unknown Verified 06/20/17 08:12 hydrocodone bitartrate Allergy Unknown Verified 06/20/17 08:12 [From [place]] milk Allergy Unknown Verified 06/20/17 08:12 Penicillins Allergy Rash/Hives Verified 06/20/17 08:12 rofecoxib [From Vioxx] Allergy Rash/Hives Verified 06/20/17 08:12 albuterol sulfate AdvReac Rapid Verified 06/20/17 08:12 [From Ventolin HFA] Heart Rate clarithromycin [From Biaxin] AdvReac Nausea Verified 06/20/17 08:12 clindamycin AdvReac Nausea Verified 06/20/17 08:12 levofloxacin [From Levaquin] AdvReac Nausea Verified 06/20/17 08:12 Morpholine Analogues AdvReac Confusion Verified 06/20/17 08:12 ranitidine HCl [From Zantac] AdvReac Unknown Verified 06/20/17 08:12 Review of Systems ROS Statement: Those systems with pertinent positive or pertinent negative responses have been documented in the HPI. ROS Other: All systems not noted in ROS Statement are negative. Past Medical History Past Medical History: Asthma, Coronary Artery Disease (CAD), Cancer, GI Bleed, Hypertension, Memory Impairment, Musculoskeletal Disorder, Osteoarthritis (OA), Sleep Apnea/CPAP/BIPAP Additional Past Medical History / Comment(s): Sjogren syndrome, RECTAL CANCER WITH COLOSTOMY , anemia, OVER ACTIVE BLADDER, hx. L4 fracture, BRONCH WASHING WAS POSITIVE FOR KLEBSIELLA PNUEMONAE., BACK PAIN History of Any Multi-Drug Resistant Organisms: ESBL Date of last positivie culture/infection: 10/30/16 ESBL Klebsiella MDRO Source:: Urine Past Surgical History: Adenoidectomy, Appendectomy, Back Surgery, Bowel Resection, Breast Surgery, Heart Catheterization, Hysterectomy, Tonsillectomy, Uterine Ablation Additional Past Surgical History / Comment(s): PERMANENT COLOSTOMY. throat surgery removed uvula,L3-L4 two fractured vertebrae, sofi cataracts, kyphoplasty L4, PICCLINE IN MAY FOR ABX(PNE) SINCE REMOVED. Past Anesthesia/Blood Transfusion Reactions: No Reported Reaction Additional Past Anesthesia/Blood Transfusion Reaction / Comment(s): HX OF BLOOD TRANSFUSION Past Psychological History: No Psychological Hx Reported Smoking Status: Never smoker Past Alcohol Use History: None Reported Past Drug Use History: None Reported - Past Family History Mother History Unknown: Yes Family Medical History: Dialysis, Renal Disease Brother(s) History Unknown: Yes Family Medical History: No Reported History Sister(s) History Unknown: Yes Family Medical History: No Reported History Additional Family Medical History / Comment(s): Patient has 3 adopted kids. Father Family Medical History: Cancer, CVA/TIA Additional Family Medical History / Comment(s): 3 out of 4 siblings dx. autoimmune disease General Exam Limitations: no limitations General appearance: alert, in no apparent distress Eye exam: Present: normal appearance, PERRL, EOMI. Absent: scleral icterus, conjunctival injection, periorbital swelling ENT exam: Present: normal exam, mucous membranes dry Neck exam: Present: normal inspection. Absent: tenderness, meningismus, lymphadenopathy Respiratory exam: Present: normal lung sounds bilaterally. Absent: respiratory distress, wheezes, rales, rhonchi, stridor Cardiovascular Exam: Present: regular rate, normal rhythm, normal heart sounds. Absent: systolic murmur, diastolic murmur, rubs, gallop, clicks GI/Abdominal exam: Present: soft, normal bowel sounds. Absent: distended, tenderness, guarding, rebound, rigid Neurological exam: Present: alert, oriented X3 Psychiatric exam: Present: normal affect, normal mood Skin exam: Present: warm, dry, intact, normal color. Absent: rash Course Vital Signs 06/20/17 06/20/17 08:08 09:29 Temperature 101.8 F H Pulse Rate 123 H 110 H Respiratory 16 16 Rate Blood Pressure 195/86 154/70 O2 Sat by Pulse 97 100 Oximetry - Reevaluation(s) Reevaluation #1: 06/20/17 09:46 At this time patient does meet sepsis criteria. EKG Findings - EKG Comments: EKG Findings:: Sinus tachycardia 116 bpm, normal axis, no atopy, no S-T depressions or elevations, Medical Decision Making - Medical Decision Making 82-year-old female presents with chief complaint of increased weakness. This tenderness appear to be some dehydration with elevated creatinine along with urosepsis. Patient was started on Rocephin Dr. Parks spoke with Dr. vaughn who does agree to the admission. All questions have been answered. Patient will be admitted at this time. - Lab Data Result diagrams: 06/20/17 08:48 06/20/17 08:48 Lab Results 06/20/17 06/20/17 06/20/17 Range/Units 08:48 08:48 08:48 WBC 8.7 (3.8-10.6) k/uL RBC 3.38 L (3.80-5.40) m/uL Hgb 10.3 L (11.4-16.0) gm/dL Hct 31.9 L (34.0-46.0) % MCV 94.6 (80.0-100.0) fL MCH 30.7 (25.0-35.0) pg MCHC 32.4 (31.0-37.0) g/dL RDW 13.3 (11.5-15.5) % Plt Count 95 L (150-450) k/uL Neutrophils % 88 % Lymphocytes % 4 % Monocytes % 7 % Eosinophils % 0 % Basophils % 0 % Neutrophils # 7.6 (1.3-7.7) k/uL Lymphocytes # 0.3 L (1.0-4.8) k/uL Monocytes # 0.6 (0-1.0) k/uL Eosinophils # 0.0 (0-0.7) k/uL Basophils # 0.0 (0-0.2) k/uL PT 9.9 (9.0-12.0) sec INR 1.0 (<1.2) APTT 24.6 (22.0-30.0) sec Sodium 140 (137-145) mmol/L Potassium 4.6 (3.5-5.1) mmol/L Chloride 107 (98-107) mmol/L Carbon Dioxide 19 L (22-30) mmol/L Anion Gap 14 mmol/L BUN 47 H (7-17) mg/dL Creatinine 1.30 H (0.52-1.04) mg/dL Est GFR (CKD-EPI)AfAm 44 (>60 ml/min/1.73 sqM) Est GFR (CKD-EPI)NonAf 38 (>60 ml/min/1.73 sqM) Glucose 104 H (74-99) mg/dL Plasma Lactic Acid Ric (0.7-2.0) mmol/L Calcium 8.6 (8.4-10.2) mg/dL Total Bilirubin 0.6 (0.2-1.3) mg/dL AST 60 H (14-36) U/L ALT 74 H (9-52) U/L Alkaline Phosphatase 174 H (38-126) U/L Total Creatine Kinase (30-135) U/L CK-MB (CK-2) (0.0-2.4) ng/mL CK-MB (CK-2) Rel Index Troponin I (0.000-0.034) ng/mL Total Protein 6.1 L (6.3-8.2) g/dL Albumin 3.4 L (3.5-5.0) g/dL Urine Color Urine Appearance (Clear) Urine pH (5.0-8.0) Ur Specific [place] (1.001-1.035) Urine Protein (Negative) Urine Glucose (UA) (Negative) Urine Ketones (Negative) Urine Blood (Negative) Urine Nitrite (Negative) Urine Bilirubin (Negative) Urine Urobilinogen (<2.0) mg/dL Ur Leukocyte Esterase (Negative) Urine RBC (0-5) /hpf Urine WBC (0-5) /hpf Urine Bacteria (None) /hpf Urine Mucus (None) /hpf 06/20/17 06/20/17 06/20/17 Range/Units 08:48 08:48 09:27 WBC (3.8-10.6) k/uL RBC (3.80-5.40) m/uL Hgb (11.4-16.0) gm/dL Hct (34.0-46.0) % MCV (80.0-100.0) fL MCH (25.0-35.0) pg MCHC (31.0-37.0) g/dL RDW (11.5-15.5) % Plt Count (150-450) k/uL Neutrophils % % Lymphocytes % % Monocytes % % Eosinophils % % Basophils % % Neutrophils # (1.3-7.7) k/uL Lymphocytes # (1.0-4.8) k/uL Monocytes # (0-1.0) k/uL Eosinophils # (0-0.7) k/uL Basophils # (0-0.2) k/uL PT (9.0-12.0) sec INR (<1.2) APTT (22.0-30.0) sec Sodium (137-145) mmol/L Potassium (3.5-5.1) mmol/L Chloride (98-107) mmol/L Carbon Dioxide (22-30) mmol/L Anion Gap mmol/L BUN (7-17) mg/dL Creatinine (0.52-1.04) mg/dL Est GFR (CKD-EPI)AfAm (>60 ml/min/1.73 sqM) Est GFR (CKD-EPI)NonAf (>60 ml/min/1.73 sqM) Glucose (74-99) mg/dL Plasma Lactic Acid Ric 1.0 (0.7-2.0) mmol/L Calcium (8.4-10.2) mg/dL Total Bilirubin (0.2-1.3) mg/dL AST (14-36) U/L ALT (9-52) U/L Alkaline Phosphatase (38-126) U/L Total Creatine Kinase 83 (30-135) U/L CK-MB (CK-2) 2.3 (0.0-2.4) ng/mL CK-MB (CK-2) Rel Index 2.8 Troponin I 0.015 (0.000-0.034) ng/mL Total Protein (6.3-8.2) g/dL Albumin (3.5-5.0) g/dL Urine Color Light Yellow Urine Appearance Cloudy H (Clear) Urine pH 5.5 (5.0-8.0) Ur Specific [place] 1.010 (1.001-1.035) Urine Protein Trace H (Negative) Urine Glucose (UA) Negative (Negative) Urine Ketones Negative (Negative) Urine Blood Trace H (Negative) Urine Nitrite Positive H (Negative) Urine Bilirubin Negative (Negative) Urine Urobilinogen <2.0 (<2.0) mg/dL Ur Leukocyte Esterase Large H (Negative) Urine RBC 2 (0-5) /hpf Urine WBC 139 H (0-5) /hpf Urine Bacteria Moderate H (None) /hpf Urine Mucus Rare H (None) /hpf - Radiology Data Radiology results: report reviewed, image reviewed Disposition Clinical Impression: UTI (urinary tract infection), Acute renal failure, Sepsis Disposition: ADMITTED IP TO THIS [facility] Condition: Stable Referrals: Shimon Garcia MD [Primary Care Provider] - 1-2 days Decision Date: 06/20/17 Decision Time: 10:06
[2017-06-20] MEDS: SODIUM CHLORIDE 0.9% 500 ML IV SCH ×2 (08:44→10:18)
[2017-06-20 08:58] LABS: Basophils % (A) 0 %; Eosinophils % (A) 0 %; HCT 31.9 % (34.0-46.0); HGB 10.3 gm/dL (11.4-16.0); Lymphocytes # (A) 0.3 k/uL (1.0-4.8); Lymphocytes % (A) 4 %; MCH 30.7 pg (25.0-35.0); MCHC 32.4 g/dL (31.0-37.0); MCV 94.6 fL (80.0-100.0); Monocytes # (A) 0.6 k/uL (0-1.0); Monocytes % (A) 7 %; Neutrophils # (A) 7.6 k/uL (1.3-7.7); Neutrophils % (A) 88 %; RBC 3.38 m/uL (3.80-5.40); RDW 13.3 % (11.5-15.5); WBC 8.7 k/uL (3.8-10.6)
[2017-06-20 09:02] LABS: Platelet Count 95 k/uL (150-450)
[2017-06-20 09:08] LABS: Partial Thromboplastin Time 24.6 sec (22.0-30.0); Prothrombin Time 9.9 sec (9.0-12.0)
[2017-06-20 09:09] LABS: Albumin 3.4 g/dL (3.5-5.0); Calcium 8.6 mg/dL (8.4-10.2); Potassium 4.6 mmol/L (3.5-5.1); Total Bilirubin 0.6 mg/dL (0.2-1.3); Total Protein 6.1 g/dL (6.3-8.2)
--- NOTE | 2017-06-20 09:18 | XR ---
EXAMINATION TYPE: XR chest 2V DATE OF EXAM: 06/20/2017 HISTORY: Fever. REFERENCE: Previous study dated 11/23/2016. FINDINGS: Into previous kyphoplasty in the mid dorsal spine. There is platelike atelectasis in the right midlung. There is vascular congestion without erica inter stitial change. The heart is enlarged. Pleural spaces are clear. IMPRESSION: 1. CARDIOMEGALY. 2. VASCULAR CONGESTION.
[2017-06-20 09:30] LABS: Creatine Kinase MB 2.3 ng/mL (0.0-2.4); Troponin I 0.015 ng/mL (0.000-0.034)
[2017-06-20 09:42] LABS: Appearance,Urine Cloudy (Clear); Bacteria,Urine Moderate /hpf; Bilirubin,Urine Negative (Negative); Blood,Urine Trace (Negative); Color,Urine Light Yellow; Glucose,Urine (UA) Negative (Negative); Ketones,Urine Negative (Negative); Leukocyte Esterase,Urine Large (Negative); Mucus,Urine Rare /hpf; Nitrite,Urine Positive (Negative); PH, Urine 5.5 (5.0-8.0); Protein,Urine Trace (Negative); RBC,Urine 2 /hpf (0-5); Urobilinogen,Urine <2.0 mg/dL (<2.0); WBC,Urine 139 /hpf (0-5)
[2017-06-20] MEDS ORDERED: cefTRIAXone IN SWFI 1,000 MG/10 ML SYRINGE IVP STA (09:46)
[2017-06-20] MEDS: SODIUM CHLORIDE 0.9% 1,000 ML IV SCH ×2 (10:18→18:08)
[2017-06-20 12:16] VITALS: BMI 21.2
[2017-06-20] MEDS ORDERED: ALBUTEROL NEBULIZED 2.5 MG/3 ML INHALATION PRN (12:18)
[2017-06-20] MEDS ORDERED: ALPRAZolam 0.25 MG TAB PO PRN (12:18)
[2017-06-20] MEDS: oxyCODONE-APAP 5-325MG 1 EACH TAB PO SCH ×2 (18:06→22:15)
[2017-06-20] MEDS: OLANZapine 10 MG TAB PO SCH (18:06)
[2017-06-20] MEDS: HEPARIN SODIUM,PORCINE 5,000 UNIT/ML 1 ML VIAL SQ SCH (18:07)
[2017-06-20] MEDS: MULTIVITAMINS, THERA 1 EACH TAB PO SCH (18:07)
[2017-06-20] MEDS ORDERED: PILOCARPINE 5 MG TAB PO SCH (21:00)
[2017-06-20] MEDS: LISINOPRIL 20 MG TAB PO SCH (22:01)
[2017-06-20] MEDS: PILOCARPINE 7.5 MG PO SCH (22:02)
[2017-06-20] MEDS: DETROL 4 MG PO SCH (22:02)
[2017-06-21] MEDS: HEPARIN SODIUM,PORCINE 5,000 UNIT/ML 1 ML VIAL SQ SCH ×4 (00:53→23:20)
[2017-06-21] MEDS: SODIUM CHLORIDE 0.9% 1,000 ML IV SCH ×3 (00:53→17:28)
[2017-06-21 08:21] LABS: Basophils % (A) 0 %; Eosinophils # (A) 0.1 k/uL (0-0.7); Eosinophils % (A) 1 %; Lymphocytes # (A) 0.6 k/uL (1.0-4.8); Lymphocytes % (A) 8 %; MCH 30.9 pg (25.0-35.0); MCHC 32.1 g/dL (31.0-37.0); MCV 96.2 fL (80.0-100.0); Mean Platelet Volume 8.7; Monocytes # (A) 0.6 k/uL (0-1.0); Monocytes % (A) 8 %; Neutrophils # (A) 5.9 k/uL (1.3-7.7); Neutrophils % (A) 79 %; Platelet Count 100 k/uL (150-450); RBC 3.23 m/uL (3.80-5.40); RDW 13.2 % (11.5-15.5); WBC 7.4 k/uL (3.8-10.6)
[2017-06-21 08:51] LABS: Albumin 2.7 g/dL (3.5-5.0); Magnesium 1.9 mg/dL (1.6-2.3); Potassium 4.3 mmol/L (3.5-5.1); Total Bilirubin 0.3 mg/dL (0.2-1.3); Total Protein 5.3 g/dL (6.3-8.2)
[2017-06-21] MEDS ORDERED: NON-FORMULARY DRUG (Ubidecarenone [Co Q-10] 100 MG) PO SCH (09:00)
[2017-06-21] MEDS ORDERED: OXYBUTYNIN XL 5 MG TAB.ER.24 PO SCH (09:00)
[2017-06-21] MEDS: oxyCODONE-APAP 5-325MG 1 EACH TAB PO SCH ×3 (09:41→22:06)
[2017-06-21] MEDS: cefTRIAXone IN SWFI 1,000 MG/10 ML SYRINGE IVP SCH (09:41)
[2017-06-21] MEDS: PILOCARPINE 7.5 MG PO SCH ×3 (09:42→22:01)
[2017-06-21] MEDS: DETROL 4 MG PO SCH ×2 (09:42→22:01)
[2017-06-21] MEDS: LISINOPRIL 20 MG TAB PO SCH ×2 (09:43→22:01)
[2017-06-21] MEDS: LACTOBACILLUS ACIDOPH & BULGAR 1 EACH PACKET PO SCH (09:43)
[2017-06-21] MEDS: PANTOPRAZOLE 40 MG TABLET PO SCH (09:44)
[2017-06-21] MEDS: ESCITALOPRAM 10 MG TAB PO SCH (09:44)
[2017-06-21] MEDS: METOPROLOL SUCCINATE (ER) 50 MG TAB.ER.24H PO SCH (09:44)
[2017-06-21] MEDS: ASCORBIC ACID 500 MG TAB PO SCH (09:44)
[2017-06-21] MEDS: VIT A,C & E-LUTEIN-MINERALS 1 EACH TAB PO SCH (09:45)
[2017-06-21] MEDS: ISOSORBIDE MONONITRATE ER 60 MG TAB.ER.24H PO SCH (09:47)
--- NOTE | 2017-06-21 10:40 | P.HPIM ---
History of Present Illness H&P Date: 06/20/17 82-year-old female one of my patient patient with past medical history of asthma, CAD with ischemic cardiomyopathy, previous history of lung cancer post resection who is known to have severe lower back pain. Patient had back surgery in May [address] Simmons and was complicated with bilateral pneumonia was in the hospital for over a week and subsequent development of multiple compression fractures. At that time she was seen and evaluated by spine surgery Dr. Simmons and the patient had a brace ended up going to [facility] for physical therapy and rehabilitation. She has been doing very well for the past 2 years and was recently seen in the office by me and had a physical, was brought into the emergency department at [facility] because of increased fatigue and weakness and she had a temperature of 101.1 patient was found to have a significant UTI with sepsis she was given IV fluid resuscitation in the form of normal saline and she was started on IV antibiotic in the form of Rocephin 1 g IV piggyback every 24 hours, patient did have urine culture and blood culture drawn was admitted to hospital for evaluation and treatment. Review of Systems Constitutional: Reports chronic pain, Reports malaise, Reports weakness, Reports weight loss Eyes: denies blurred vision, denies bulging eye, denies decreased vision Ears: deny: decreased hearing Ears, nose, mouth and throat: Denies dysphagia, Denies neck lump, Denies swelling in throat, Denies sore throat, Denies vertigo Cardiovascular: Reports decreased exercise tolerance, Reports dyspnea on exertion, Reports high blood pressure, Reports shortness of breath, Denies chest pain, Denies rapid heart beat, Denies syncope Respiratory: Denies congestion, Denies cough, Denies cough with sputum, Denies home oxygen, Denies sleep apnea, Denies snoring, Denies wheezing Gastrointestinal: Denies abdominal pain, Denies bloating, Denies BRBPR, Denies excessive gas, Denies heartburn, Denies melena, Denies nausea, Denies vomiting Genitourinary: Reports dysuria, Reports urgency Menstruation: Reports postmenopausal Musculoskeletal: Reports atrophy, Reports gait dysfunction, Reports low back pain Musculoskeletal: absent: ankle pain, ankle stiffness, ankle swelling, elbow pain , elbow stiffness, elbow swelling, foot pain, foot stiffness, foot swelling, hand pain, hand stiffness, hand swelling, hip pain, hip stiffness, hip swelling , knee pain, knee stiffness, knee swelling, shoulder pain, shoulder stiffness, shoulder swelling, wrist pain, wrist stiffness, wrist swelling Integumentary: Denies pruritus, Denies rash Neurological: Reports weakness, Denies numbness Psychiatric: Reports anxiety, Reports depression, Reports sleep disturbances, Denies sadness/tearfulness, Denies suicidal ideation Endocrine: Denies fatigue, Denies weight change Past Medical History Past Medical History: Asthma, Coronary Artery Disease (CAD), Cancer, GI Bleed, Hypertension, Memory Impairment, Musculoskeletal Disorder, Osteoarthritis (OA), Sleep Apnea/CPAP/BIPAP Additional Past Medical History / Comment(s): Sjogren syndrome, RECTAL CANCER WITH COLOSTOMY , anemia, OVER ACTIVE BLADDER, hx. L4 fracture, BRONCH WASHING WAS POSITIVE FOR KLEBSIELLA PNUEMONAE., BACK PAIN History of Any Multi-Drug Resistant Organisms: ESBL Date of last positivie culture/infection: 10/30/16 ESBL Klebsiella MDRO Source:: Urine Past Surgical History: Adenoidectomy, Appendectomy, Back Surgery, Bowel Resection, Breast Surgery, Heart Catheterization, Hysterectomy, Tonsillectomy, Uterine Ablation Additional Past Surgical History / Comment(s): PERMANENT COLOSTOMY. throat surgery removed uvula,L3-L4 two fractured vertebrae, sofi cataracts, kyphoplasty L4, PICCLINE IN MAY FOR ABX(PNE) SINCE REMOVED. Past Anesthesia/Blood Transfusion Reactions: No Reported Reaction Additional Past Anesthesia/Blood Transfusion Reaction / Comment(s): HX OF BLOOD TRANSFUSION Past Psychological History: No Psychological Hx Reported Smoking Status: Never smoker Past Alcohol Use History: None Reported Past Drug Use History: None Reported - Past Family History Mother History Unknown: Yes Family Medical History: Dialysis, Renal Disease Brother(s) History Unknown: Yes Family Medical History: No Reported History Sister(s) History Unknown: Yes Family Medical History: No Reported History Additional Family Medical History / Comment(s): Patient has 3 adopted kids. Father Family Medical History: Cancer, CVA/TIA Additional Family Medical History / Comment(s): 3 out of 4 siblings dx. autoimmune disease Medications and Allergies Home Medications Medication Instructions Recorded Confirmed Type Isosorbide Mononitrate [Imdur] 60 mg PO QAM 07/29/13 06/20/17 History Pilocarpine HCl [Salagen] 7.5 mg PO BID 07/29/13 06/20/17 History L.acidoph/B.long/L.plant/B.lac 1 cap PO DAILY 05/09/14 06/20/17 History [Probiotic Acidophilus Beads] Multivitamins, Thera [Multivitamin 1 tab PO W/SUPPER 03/01/15 06/20/17 History (formulary)] Vit C/E/Zn/Coppr/Lutein/Zeaxan 1 cap PO DAILY 03/14/15 06/20/17 History [Preservision Areds 2 Softgel] Escitalopram [Lexapro] 10 mg PO QAM 08/29/15 06/20/17 History OLANZapine [ZyPREXA] 10 mg PO PC-SUPPER 08/29/15 06/20/17 History Ascorbic Acid [Vitamin C] 500 mg PO DAILY 10/30/16 06/20/17 History Cholecalciferol [Vitamin D3] 1,000 unit PO DAILY 10/30/16 06/20/17 History Lansoprazole [Prevacid] 15 mg PO QAM 10/30/16 06/20/17 History Lisinopril 40 mg PO BID 10/30/16 06/20/17 History Ubidecarenone [Co Q-10] 100 mg PO DAILY 10/30/16 06/20/17 History Metoprolol Succinate (ER) [Toprol 150 mg PO QAM 11/23/16 06/20/17 History XL] ALPRAZolam [Xanax] 0.25 mg PO BID PRN 06/20/17 06/20/17 History Albuterol Inhaler [Ventolin Hfa 1 - 2 puff INHALATION RT-Q6H PRN 06/20/17 History Inhaler] Tolterodine ER [Detrol LA] 2 mg PO DAILY 06/20/17 06/20/17 History oxyCODONE-APAP 5-325MG [Percocet 1 tab PO TID 06/20/17 06/20/17 History 5-325 mg] Allergies Allergy/AdvReac Type Severity Reaction Status Date / Time aspirin Allergy Anaphylaxis Verified 06/20/17 11:04 caffeine Allergy Unknown Verified 06/20/17 08:12 celecoxib [From Celebrex] Allergy Rash/Hives Verified 06/20/17 11:04 codeine Allergy Anaphylaxis Verified 06/20/17 11:04 doxycycline Allergy Unknown Verified 06/20/17 11:04 hydrocodone bitartrate Allergy Unknown Verified 06/20/17 11:04 [From [place]] milk Allergy Unknown Verified 06/20/17 08:12 Penicillins Allergy Rash/Hives Verified 06/20/17 11:04 rofecoxib [From Vioxx] Allergy Rash/Hives Verified 06/20/17 11:04 clarithromycin [From Biaxin] AdvReac Nausea Verified 06/20/17 11:04 clindamycin AdvReac Nausea Verified 06/20/17 11:04 levofloxacin [From Levaquin] AdvReac Nausea Verified 06/20/17 11:04 Morpholine Analogues AdvReac Confusion Verified 06/20/17 11:04 ranitidine HCl [From Zantac] AdvReac Unknown Verified 06/20/17 11:04 Physical Exam Vitals: Vital Signs Temp Pulse Resp BP Pulse Ox 06/20/17 11:00 95 16 120/57 98 06/20/17 10:00 99.3 F 99 16 133/60 98 06/20/17 09:29 110 H 16 154/70 100 06/20/17 08:08 101.8 F H 123 H 16 195/86 97 Intake and Output 06/19/17 06/20/17 06/20/17 22:59 06:59 14:59 Other: Weight 55.792 kg - Constitutional General appearance: average body habitus, mild distress - EENT Eyes: anicteric sclerae, EOMI, PERRLA, no ptosis, no scleral icterus, normal appearance ENT: hard of hearing, NA/AT, normal oropharynx, no thrush Ears: bilateral: normal - Neck Neck: no lymphadenopathy, normal ROM, no rigidity, no stridor, no thyromegaly Carotids: bilateral: upstroke delayed Thyroid: bilateral: normal size - Respiratory Respiratory: bilateral: diminished, negative: dullness, rales, rhonchi, wheezing , prolonged expiration, prolonged inspiration - Cardiovascular Rhythm: regular Heart sounds: normal: S1, S2 Abnormal Heart Sounds: systolic murmur, no S3 Gallop - Gastrointestinal General gastrointestinal: normal bowel sounds, soft (Colostomy back in place with hernia), no splenomegaly, no tenderness - Integumentary Integumentary: decreased turgor, normal - Neurologic Neurologic: CNII-XII intact - Musculoskeletal Musculoskeletal: generalized weakness, strength equal bilaterally - Psychiatric Psychiatric: A&O x's 3, appropriate affect, intact judgment & insight Results CBC & Chem 7: 06/21/17 07:05 06/21/17 07:05 Labs: Abnormal Lab Results - Last 24 Hours (Table) 06/20/17 06/20/17 06/20/17 Range/Units 08:48 08:48 09:27 RBC 3.38 L (3.80-5.40) m/uL Hgb 10.3 L (11.4-16.0) gm/dL Hct 31.9 L (34.0-46.0) % Plt Count 95 L (150-450) k/uL Lymphocytes # 0.3 L (1.0-4.8) k/uL Carbon Dioxide 19 L (22-30) mmol/L BUN 47 H (7-17) mg/dL Creatinine 1.30 H (0.52-1.04) mg/dL Glucose 104 H (74-99) mg/dL AST 60 H (14-36) U/L ALT 74 H (9-52) U/L Alkaline Phosphatase 174 H (38-126) U/L Total Protein 6.1 L (6.3-8.2) g/dL Albumin 3.4 L (3.5-5.0) g/dL Urine Appearance Cloudy H (Clear) Urine Protein Trace H (Negative) Urine Blood Trace H (Negative) Urine Nitrite Positive H (Negative) Ur Leukocyte Esterase Large H (Negative) Urine WBC 139 H (0-5) /hpf Urine Bacteria Moderate H (None) /hpf Urine Mucus Rare H (None) /hpf Thrombosis Risk Factor Assmnt - DVT/VTE Prophylaxis DVT/VTE Prophylaxis: Pharmacologic Prophylaxis ordered, Mechanical Prophylaxis ordered Assessment and Plan Assessment: Assessment and plan: 1. UTI with sepsis. IV fluid resuscitation, IV anabiotic Rocephin 1 g IV piggyback every 24 hours, urine culture, blood culture, follow-up with the patient 4 hours. 2. Acute kidney injury due to poor oral intake of fluid. IV fluid resuscitation, monitor the patient CMP in the next 24 hours.. 3. CAD and severe ischemic cardiomyopathy with low ejection fraction of 50%. Continue metoprolol 50 mg orally once every day as well as lisinopril 40 mg orally twice every day. 4. Hypertension and hypertensive cardio vascular disease. Continue patient on metoprolol 50 mg orally once every day as well as lisinopril 40 mg orally twice every day. 5. Sjogren syndrome. Continue the patient on Salagen 7.5 mg orally 3 times every day. 6. Chronic anemia . Monitor the patient's CBC. 7. Chronic pain syndrome: Patient has been on Percocet 3 times every day. 8. Overactive bladder: Has been on Detrol 4 mg orally once every day. 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 Continue with olanzapine 10 mg at bedtime. 10. DVT prophylaxis: Patient will be on heparin 5000 units subcutaneously every 8 hours. 11. GI prophylaxis. Protonix 40 mg orally once every day. 12. Admit to inpatient. Estimated length of stay 2 midnights.
--- NOTE | 2017-06-21 10:40 | P.PN ---
Subjective Progress Note Date: 06/21/17 82-year-old female one of my patient patient with past medical history of asthma, CAD with ischemic cardiomyopathy, previous history of lung cancer post resection who is known to have severe lower back pain. Patient had back surgery in May [address] Simmons and was complicated with bilateral pneumonia was in the hospital for over a week and subsequent development of multiple compression fractures. At that time she was seen and evaluated by spine surgery Dr. Simmons and the patient had a brace ended up going to [facility] for physical therapy and rehabilitation. She has been doing very well for the past 2 years and was recently seen in the office by me and had a physical, was brought into the emergency department at [facility] because of increased fatigue and weakness and she had a temperature of 101.1 patient was found to have a significant UTI with sepsis she was given IV fluid resuscitation in the form of normal saline and she was started on IV antibiotic in the form of Rocephin 1 g IV piggyback every 24 hours, patient did have urine culture and blood culture drawn was admitted to hospital for evaluation and treatment. 06/21: Patient is more awake and more alert today she continues to be very weak, we will decrease her IV fluid to 50 mL an hour, continue IV antibiotic, patient does appear to have a blood cultures with gram-negative rods and we will continue the same treatment until further identity of the organism. Objective - Vital Signs Vital signs: Vital Signs Temp 98.2 F 06/20/17 23:00 Pulse 76 06/20/17 23:00 Resp 16 06/20/17 23:00 BP 171/72 06/20/17 23:00 Pulse Ox 93 L 06/20/17 23:00 Intake & Output 06/20/17 06/21/17 06/21/17 18:59 06:59 18:59 Intake Total 1650 Balance 1650 Weight 56.245 kg Intake: Intake, IV Titration 1650 Amount Sodium Chloride 0.9% 1, 1650 000 ml @ 150 mls/hr IV . Q6H40M [facility] Rx#:[id number] Other: Voiding Method Bedside Commode Diaper # Voids 1 - Exam - Constitutional General appearance: average body habitus, mild distress - EENT Eyes: anicteric sclerae, EOMI, PERRLA, no ptosis, no scleral icterus, normal appearance ENT: hard of hearing, NA/AT, normal oropharynx, no thrush Ears: bilateral: normal - Neck Neck: no lymphadenopathy, normal ROM, no rigidity, no stridor, no thyromegaly Carotids: bilateral: upstroke delayed Thyroid: bilateral: normal size - Respiratory Respiratory: bilateral: diminished, negative: dullness, rales, rhonchi, wheezing , prolonged expiration, prolonged inspiration - Cardiovascular Rhythm: regular Heart sounds: normal: S1, S2 Abnormal Heart Sounds: systolic murmur, no S3 Gallop - Gastrointestinal General gastrointestinal: normal bowel sounds, soft (Colostomy back in place with hernia), no splenomegaly, no tenderness - Integumentary Integumentary: decreased turgor, normal - Neurologic Neurologic: CNII-XII intact - Musculoskeletal Musculoskeletal: generalized weakness, strength equal bilaterally - Psychiatric Psychiatric: A&O x's 3, appropriate affect, intact judgment & insight - Labs CBC & Chem 7: 06/21/17 07:05 06/21/17 07:05 Labs: Abnormal Lab Results - Last 24 Hours (Table) 06/20/17 06/20/17 06/20/17 Range/Units 08:48 08:48 09:27 RBC 3.38 L (3.80-5.40) m/uL Hgb 10.3 L (11.4-16.0) gm/dL Hct 31.9 L (34.0-46.0) % Plt Count 95 L (150-450) k/uL Lymphocytes # 0.3 L (1.0-4.8) k/uL Carbon Dioxide 19 L (22-30) mmol/L BUN 47 H (7-17) mg/dL Creatinine 1.30 H (0.52-1.04) mg/dL Glucose 104 H (74-99) mg/dL AST 60 H (14-36) U/L ALT 74 H (9-52) U/L Alkaline Phosphatase 174 H (38-126) U/L Total Protein 6.1 L (6.3-8.2) g/dL Albumin 3.4 L (3.5-5.0) g/dL Urine Appearance Cloudy H (Clear) Urine Protein Trace H (Negative) Urine Blood Trace H (Negative) Urine Nitrite Positive H (Negative) Ur Leukocyte Esterase Large H (Negative) Urine WBC 139 H (0-5) /hpf Urine Bacteria Moderate H (None) /hpf Urine Mucus Rare H (None) /hpf Microbiology - Last 24 Hours (Table) 06/20/17 08:48 Blood Culture Gram Stain - Preliminary Blood 06/20/17 08:48 Blood Culture - Final Blood 06/20/17 09:27 Urine Culture - Preliminary Urine,Voided Assessment and Plan Assessment: Assessment and plan: 1. UTI with sepsis. IV fluid resuscitation, IV anabiotic Rocephin 1 g IV piggyback every 24 hours, urine culture, blood culture, follow-up with the patient 4 hours. With a gram-negative bacteremia continue with current Rocephin. 2. Acute kidney injury due to poor oral intake of fluid. IV fluid resuscitation, monitor the patient CMP in the next 24 hours.. 3. CAD and severe ischemic cardiomyopathy with low ejection fraction of 50%. Continue metoprolol 50 mg orally once every day as well as lisinopril 40 mg orally twice every day. 4. Hypertension and hypertensive cardio vascular disease. Continue patient on metoprolol 50 mg orally once every day as well as lisinopril 40 mg orally twice every day. 5. Sjogren syndrome. Continue the patient on Salagen 7.5 mg orally 3 times every day. 6. Chronic anemia . Monitor the patient's CBC. 7. Chronic pain syndrome: Patient has been on Percocet 3 times every day. 8. Overactive bladder: Has been on Detrol 4 mg orally once every day. 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 Continue with olanzapine 10 mg at bedtime. 10. DVT prophylaxis: Patient will be on heparin 5000 units subcutaneously every 8 hours. 11. GI prophylaxis. Protonix 40 mg orally once every day.
[2017-06-21] MEDS: CHOLECALCIFEROL 1,000 UNIT TAB PO SCH (17:28)
[2017-06-21] MEDS: MULTIVITAMINS, THERA 1 EACH TAB PO SCH (17:29)
[2017-06-21] MEDS: OLANZapine 10 MG TAB PO SCH (17:30)
[2017-06-22 07:54] LABS: Basophils % (A) 0 %; Eosinophils # (A) 0.1 k/uL (0-0.7); Eosinophils % (A) 2 %; HCT 30.4 % (34.0-46.0); HGB 9.7 gm/dL (11.4-16.0); Lymphocytes # (A) 0.6 k/uL (1.0-4.8); Lymphocytes % (A) 9 %; MCH 30.8 pg (25.0-35.0); MCHC 31.9 g/dL (31.0-37.0); MCV 96.5 fL (80.0-100.0); Mean Platelet Volume 7.7; Monocytes # (A) 0.5 k/uL (0-1.0); Monocytes % (A) 7 %; Neutrophils # (A) 5.7 k/uL (1.3-7.7); Neutrophils % (A) 80 %; Platelet Count 129 k/uL (150-450); RBC 3.15 m/uL (3.80-5.40); RDW 13.4 % (11.5-15.5); WBC 7.1 k/uL (3.8-10.6)
[2017-06-22 08:08] LABS: Calcium 8.8 mg/dL (8.4-10.2); Potassium 4.5 mmol/L (3.5-5.1); Total Bilirubin 0.4 mg/dL (0.2-1.3); Total Protein 5.6 g/dL (6.3-8.2)
[2017-06-22] MEDS: HEPARIN SODIUM,PORCINE 5,000 UNIT/ML 1 ML VIAL SQ SCH ×3 (09:10→23:19)
[2017-06-22] MEDS: PANTOPRAZOLE 40 MG TABLET PO SCH (09:10)
[2017-06-22] MEDS: SODIUM CHLORIDE 0.9% 1,000 ML IV SCH (09:11)
[2017-06-22] MEDS: LISINOPRIL 20 MG TAB PO SCH ×2 (09:12→21:00)
[2017-06-22] MEDS: LACTOBACILLUS ACIDOPH & BULGAR 1 EACH PACKET PO SCH (09:12)
[2017-06-22] MEDS: CHOLECALCIFEROL 1,000 UNIT TAB PO SCH (09:12)
[2017-06-22] MEDS: ASCORBIC ACID 500 MG TAB PO SCH (09:12)
[2017-06-22] MEDS: cefTRIAXone IN SWFI 1,000 MG/10 ML SYRINGE IVP SCH (09:12)
[2017-06-22] MEDS: ISOSORBIDE MONONITRATE ER 60 MG TAB.ER.24H PO SCH (09:12)
[2017-06-22] MEDS: ESCITALOPRAM 10 MG TAB PO SCH (09:12)
[2017-06-22] MEDS: METOPROLOL SUCCINATE (ER) 50 MG TAB.ER.24H PO SCH (09:13)
[2017-06-22] MEDS: DETROL 4 MG PO SCH ×2 (09:14→21:00)
[2017-06-22] MEDS: PILOCARPINE 7.5 MG PO SCH ×3 (09:14→21:59)
[2017-06-22] MEDS: oxyCODONE-APAP 5-325MG 1 EACH TAB PO SCH ×2 (09:15→20:59)
[2017-06-22] MEDS: VIT A,C & E-LUTEIN-MINERALS 1 EACH TAB PO SCH (09:16)
--- NOTE | 2017-06-22 15:18 | P.PN ---
Subjective Progress Note Date: 06/22/17 82-year-old female one of my patient patient with past medical history of asthma, CAD with ischemic cardiomyopathy, previous history of lung cancer post resection who is known to have severe lower back pain. Patient had back surgery in May [address] Simmons and was complicated with bilateral pneumonia was in the hospital for over a week and subsequent development of multiple compression fractures. At that time she was seen and evaluated by spine surgery Dr. Simmons and the patient had a brace ended up going to [facility] for physical therapy and rehabilitation. She has been doing very well for the past 2 years and was recently seen in the office by me and had a physical, was brought into the emergency department at [facility] because of increased fatigue and weakness and she had a temperature of 101.1 patient was found to have a significant UTI with sepsis she was given IV fluid resuscitation in the form of normal saline and she was started on IV antibiotic in the form of Rocephin 1 g IV piggyback every 24 hours, patient did have urine culture and blood culture drawn was admitted to hospital for evaluation and treatment. 4/1: Patient is more awake and more alert today she continues to be very weak, we will decrease her IV fluid to 50 mL an hour, continue IV antibiotic, patient does appear to have a blood cultures with gram-negative rods and we will continue the same treatment until further identity of the organism. 4/2: Patient's is concerned that patient has had some confusion. She is complaining of lower back pain for which she is on chronic Percocet which will be changed to twice daily versus 3 times daily. Ensure clear will be added. Patient has not been eating very much. IV fluids will be discontinued. Objective - Vital Signs Vital signs: Vital Signs Temp 97.8 F 06/22/17 07:00 Pulse 100 06/22/17 07:00 Resp 20 06/22/17 07:00 BP 188/91 06/22/17 07:00 Pulse Ox 93 L 06/22/17 07:00 Intake & Output 06/21/17 06/22/17 06/22/17 18:59 06:59 18:59 Other: Voiding Method Bedside Commode Bedside Commode Diaper Diaper # Voids 4 1 - Exam General appearance: average body habitus, mild distress - EENT Eyes: anicteric sclerae, EOMI, PERRLA, no ptosis, no scleral icterus, normal appearance ENT: hard of hearing, NA/AT, normal oropharynx, no thrush Ears: bilateral: normal - Neck Neck: no lymphadenopathy, normal ROM, no rigidity, no stridor, no thyromegaly Carotids: bilateral: upstroke delayed Thyroid: bilateral: normal size - Respiratory Respiratory: bilateral: diminished, negative: dullness, rales, rhonchi, wheezing , prolonged expiration, prolonged inspiration - Cardiovascular Rhythm: regular Heart sounds: normal: S1, S2 Abnormal Heart Sounds: systolic murmur, no S3 Gallop - Gastrointestinal General gastrointestinal: normal bowel sounds, soft (Colostomy back in place with hernia), no splenomegaly, no tenderness - Integumentary Integumentary: decreased turgor, normal - Neurologic Neurologic: CNII-XII intact - Musculoskeletal Musculoskeletal: generalized weakness, strength equal bilaterally - Psychiatric Psychiatric: A&O x's 3, appropriate affect, intact judgment & insight - Labs CBC & Chem 7: 06/22/17 06:47 06/22/17 06:47 Labs: Abnormal Lab Results - Last 24 Hours (Table) 06/22/17 06/22/17 Range/Units 06:47 06:47 RBC 3.15 L (3.80-5.40) m/uL Hgb 9.7 L (11.4-16.0) gm/dL Hct 30.4 L (34.0-46.0) % Plt Count 129 L (150-450) k/uL Lymphocytes # 0.6 L (1.0-4.8) k/uL Chloride 110 H (98-107) mmol/L Carbon Dioxide 17 L (22-30) mmol/L BUN 23 H (7-17) mg/dL AST 38 H (14-36) U/L ALT 64 H (9-52) U/L Alkaline Phosphatase 181 H (38-126) U/L Total Protein 5.6 L (6.3-8.2) g/dL Albumin 3.0 L (3.5-5.0) g/dL Microbiology - Last 24 Hours (Table) 06/20/17 09:27 Urine Culture - Final Urine,Voided Escherichia coli 06/20/17 08:48 Blood Culture Gram Stain - Preliminary Blood Blood Culture - Preliminary Gram Neg Bacilli Assessment and Plan Plan: 1. UTI with sepsis with metabolic encephalopathy. IV fluid resuscitation, IV anabiotic Rocephin 1 g IV piggyback every 24 hours, urine culture, blood culture , With a gram-negative bacteremia continue with current Rocephin. 2. Acute kidney injury due to poor oral intake of fluid. IV fluid resuscitation, monitor the patient CMP in the next 24 hours.. 3. CAD and severe ischemic cardiomyopathy with low ejection fraction of 50%. Continue metoprolol 50 mg orally once every day as well as lisinopril 40 mg orally twice every day. 4. Hypertension and hypertensive cardio vascular disease. Continue patient on metoprolol 50 mg orally once every day as well as lisinopril 40 mg orally twice every day. 5. Sjogren syndrome. Continue the patient on Salagen 7.5 mg orally 3 times every day. 6. Chronic anemia . Monitor the patient's CBC. 7. Chronic pain syndrome: Patient has been on Percocet 3 times every day. 8. Overactive bladder: Has been on Detrol 4 mg orally once every day. 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 Continue with olanzapine 10 mg at bedtime. 10. DVT prophylaxis: Patient will be on heparin 5000 units subcutaneously every 8 hours. 11. GI prophylaxis. Protonix 40 mg orally once every day. Discharge plan: To be determined. Most likely [place]. Impression and plan of care have been directed as dictated by the signing physician. Caitlin Francis nurse practitioner acting as scribe for signing physician.
[2017-06-22] MEDS: MULTIVITAMINS, THERA 1 EACH TAB PO SCH (18:17)
[2017-06-22] MEDS: OLANZapine 10 MG TAB PO SCH (18:17)
[2017-06-23] MEDS: HEPARIN SODIUM,PORCINE 5,000 UNIT/ML 1 ML VIAL SQ SCH ×2 (08:55→16:31)
[2017-06-23] MEDS: PANTOPRAZOLE 40 MG TABLET PO SCH (08:55)
[2017-06-23] MEDS: ASCORBIC ACID 500 MG TAB PO SCH (08:56)
[2017-06-23] MEDS: ESCITALOPRAM 10 MG TAB PO SCH (08:56)
[2017-06-23] MEDS: CHOLECALCIFEROL 1,000 UNIT TAB PO SCH (08:56)
[2017-06-23] MEDS: ISOSORBIDE MONONITRATE ER 60 MG TAB.ER.24H PO SCH (08:56)
[2017-06-23] MEDS: LISINOPRIL 20 MG TAB PO SCH ×2 (08:57→20:05)
[2017-06-23] MEDS: LACTOBACILLUS ACIDOPH & BULGAR 1 EACH PACKET PO SCH (08:57)
[2017-06-23] MEDS: METOPROLOL SUCCINATE (ER) 50 MG TAB.ER.24H PO SCH (08:57)
[2017-06-23] MEDS: DETROL 4 MG PO SCH ×2 (08:58→20:05)
[2017-06-23] MEDS: VIT A,C & E-LUTEIN-MINERALS 1 EACH TAB PO SCH (08:59)
[2017-06-23] MEDS: PILOCARPINE 7.5 MG PO SCH ×3 (08:59→21:24)
[2017-06-23] MEDS: oxyCODONE-APAP 5-325MG 1 EACH TAB PO SCH ×2 (09:12→20:05)
[2017-06-23] MEDS: cefTRIAXone IN SWFI 1,000 MG/10 ML SYRINGE IVP SCH (09:18)
--- NOTE | 2017-06-23 10:46 | US ---
EXAMINATION TYPE: US abdomen complete DATE OF EXAM: 06/23/2017 COMPARISON: CT 11-01-16 and ultrasound dated 11/03/2016 CLINICAL HISTORY: elevated LFTs. EXAM MEASUREMENTS: Liver Length: 13.6 cm Gallbladder Wall: 0.3 cm CBD: 0.9 cm Spleen: 10.4 cm Right Kidney: 10.5 x 3.5 x 4.0 cm Left Kidney: 9.3 x 3.6 x 4.5 cm Technically difficult and very limited study. Patient unable to cooperate with examiner in any way. Pancreas: mostly obscured by bowel gas Liver: limited visualization Gallbladder: limited visualization, portions visualized wnl Evidence for sonographic Trinidad's sign: no CBD: slight dilation distally Spleen: limited visualization, portions visualized wnl Right Kidney: Inferior pole obscured by bowel gas Left Kidney: very limited visualization, portions visualized wnl Upper IVC: not visualized due to overlying bowel, above limitations Abd Aorta: bifurcation obscured by bowel gas IMPRESSION: 1. Exam is technically difficult and very limited. Liver, aorta, pancreas, gallbladder, spleen, and k idneys are all partially obscured and inferior vena cava is nonvisualized. 2. In the visualized portions of the liver there is generalized hypoechogenicity with diminished visu alization of the portal triads suggesting hepatic steatosis. 3. Slight dilatation of the distal common bile duct. Correlate with alkaline phosphatase and bilirubi n levels to determine the need for MRCP or ERCP.
[2017-06-23] MEDS: MULTIVITAMINS, THERA 1 EACH TAB PO SCH (16:33)
[2017-06-23] MEDS: OLANZapine 10 MG TAB PO SCH (17:37)
[2017-06-24] MEDS: HEPARIN SODIUM,PORCINE 5,000 UNIT/ML 1 ML VIAL SQ SCH ×2 (00:39→08:41)
[2017-06-24 07:05] VITALS: BP 184/88; RESP 18; TEMP 97.8
--- NOTE | 2017-06-24 08:29 | P.PN ---
Subjective Progress Note Date: 06/23/17 82-year-old female one of my patient patient with past medical history of asthma, CAD with ischemic cardiomyopathy, previous history of lung cancer post resection who is known to have severe lower back pain. Patient had back surgery in May [address] Simmons and was complicated with bilateral pneumonia was in the hospital for over a week and subsequent development of multiple compression fractures. At that time she was seen and evaluated by spine surgery Dr. Simmons and the patient had a brace ended up going to [facility] for physical therapy and rehabilitation. She has been doing very well for the past 2 years and was recently seen in the office by me and had a physical, was brought into the emergency department at [facility] because of increased fatigue and weakness and she had a temperature of 101.1 patient was found to have a significant UTI with sepsis she was given IV fluid resuscitation in the form of normal saline and she was started on IV antibiotic in the form of Rocephin 1 g IV piggyback every 24 hours, patient did have urine culture and blood culture drawn was admitted to hospital for evaluation and treatment. 4/1: Patient is more awake and more alert today she continues to be very weak, we will decrease her IV fluid to 50 mL an hour, continue IV antibiotic, patient does appear to have a blood cultures with gram-negative rods and we will continue the same treatment until further identity of the organism. 4/2: Patient's is concerned that patient has had some confusion. She is complaining of lower back pain for which she is on chronic Percocet which will be changed to twice daily versus 3 times daily. Ensure clear will be added. Patient has not been eating very much. IV fluids will be discontinued. 4/3: Patient remains afebrile with normal white count. Blood and urine cultures are finalized with pansensitive E. coli. Patient is currently on ceftriaxone. Patient has been accepted at [facility] awaiting authorization but at this time, patient is stating that she does not want to go to rehab. Patient refused to work with PT and OT today. Objective - Vital Signs Vital signs: Vital Signs Temp 97.0 F L 06/23/17 07:00 Pulse 96 06/23/17 07:00 Resp 16 06/23/17 07:00 BP 170/80 06/23/17 07:00 Pulse Ox 98 06/23/17 07:00 Intake & Output 06/22/17 06/23/17 06/23/17 18:59 06:59 18:59 Intake Total 500 Balance 500 Intake: Oral 500 Other: Voiding Method Toilet Toilet Toilet Diaper Diaper Diaper Incontinent Incontinent Incontinent # Voids 2 1 - Exam General appearance: average body habitus, mild distress - EENT Eyes: anicteric sclerae, EOMI, PERRLA, no ptosis, no scleral icterus, normal appearance ENT: hard of hearing, NA/AT, normal oropharynx, no thrush Ears: bilateral: normal - Neck Neck: no lymphadenopathy, normal ROM, no rigidity, no stridor, no thyromegaly Carotids: bilateral: upstroke delayed Thyroid: bilateral: normal size - Respiratory Respiratory: bilateral: diminished, negative: dullness, rales, rhonchi, wheezing , prolonged expiration, prolonged inspiration - Cardiovascular Rhythm: regular Heart sounds: normal: S1, S2 Abnormal Heart Sounds: systolic murmur, no S3 Gallop - Gastrointestinal General gastrointestinal: normal bowel sounds, soft (Colostomy back in place with hernia), no splenomegaly, no tenderness - Integumentary Integumentary: decreased turgor, normal - Neurologic Neurologic: CNII-XII intact - Musculoskeletal Musculoskeletal: generalized weakness, strength equal bilaterally - Psychiatric Psychiatric: A&O x's 3, appropriate affect, intact judgment & insight - Labs CBC & Chem 7: 06/22/17 06:47 06/22/17 06:47 Labs: Microbiology - Last 24 Hours (Table) 06/20/17 08:48 Blood Culture Gram Stain - Final Blood Blood Culture - Final Escherichia coli 06/20/17 09:27 Urine Culture - Final Urine,Voided Escherichia coli Assessment and Plan Plan: 1. E. coli UTI with sepsis and E. coli bacteremia with metabolic encephalopathy. IV fluid resuscitation, IV anabiotic Rocephin 1 g IV piggyback every 24 hours, urine culture, blood culture, With a gram-negative bacteremia continue with current Rocephin. Repeat blood cultures ordered this morning. 2. Acute kidney injury due to poor oral intake of fluid. IV fluid resuscitation, monitor. 3. CAD and severe ischemic cardiomyopathy with low ejection fraction of 50%. Continue metoprolol 50 mg orally once every day as well as lisinopril 40 mg orally twice every day. 4. Hypertension and hypertensive cardio vascular disease. Continue patient on metoprolol 50 mg orally once every day as well as lisinopril 40 mg orally twice every day. 5. Sjogren syndrome. Continue the patient on Salagen 7.5 mg orally 3 times every day. 6. Chronic anemia . Monitor the patient's CBC. 7. Chronic pain syndrome: Patient has been on Percocet 3 times every day. 8. Overactive bladder: Has been on Detrol 4 mg orally once every day. 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 Continue with olanzapine 10 mg at bedtime. 10. DVT prophylaxis: Patient will be on heparin 5000 units subcutaneously every 8 hours. 11. GI prophylaxis. Protonix 40 mg orally once every day. Discharge plan: To be determined. Most likely [place]. Impression and plan of care have been directed as dictated by the signing physician. Caitlin Francis nurse practitioner acting as scribe for signing physician.
[2017-06-24] MEDS: PILOCARPINE 7.5 MG PO SCH (08:39)
[2017-06-24] MEDS: CHOLECALCIFEROL 1,000 UNIT TAB PO SCH (08:41)
[2017-06-24] MEDS: PANTOPRAZOLE 40 MG TABLET PO SCH (08:41)
[2017-06-24] MEDS: LACTOBACILLUS ACIDOPH & BULGAR 1 EACH PACKET PO SCH (08:42)
[2017-06-24] MEDS: ESCITALOPRAM 10 MG TAB PO SCH (08:42)
[2017-06-24] MEDS: ISOSORBIDE MONONITRATE ER 60 MG TAB.ER.24H PO SCH (08:42)
[2017-06-24] MEDS: LISINOPRIL 20 MG TAB PO SCH (08:42)
[2017-06-24] MEDS: METOPROLOL SUCCINATE (ER) 50 MG TAB.ER.24H PO SCH (08:43)
[2017-06-24] MEDS: DETROL 4 MG PO SCH (08:44)
[2017-06-24] MEDS: VIT A,C & E-LUTEIN-MINERALS 1 EACH TAB PO SCH (08:45)
[2017-06-24 08:49] LABS: HGB 9.7 gm/dL (11.4-16.0); MCH 30.7 pg (25.0-35.0); MCHC 32.3 g/dL (31.0-37.0); MCV 95.1 fL (80.0-100.0); Mean Platelet Volume 7.5; Platelet Count 179 k/uL (150-450); RBC 3.15 m/uL (3.80-5.40); RDW 13.1 % (11.5-15.5); WBC 8.3 k/uL (3.8-10.6)
[2017-06-24] MEDS: oxyCODONE-APAP 5-325MG 1 EACH TAB PO SCH (08:58)
[2017-06-24 09:08] LABS: Calcium 8.7 mg/dL (8.4-10.2); Potassium 3.8 mmol/L (3.5-5.1)
[2017-06-24] MEDS: ASCORBIC ACID 500 MG TAB PO SCH (10:28)
[2017-06-24] MEDS: cefTRIAXone IN SWFI 1,000 MG/10 ML SYRINGE IVP SCH ×2 (10:38→11:01)
[2017-06-24 11:54] VITALS: PULSE 88
[2017-06-24] MEDS ORDERED: CEFUROXIME 250 MG TAB PO SCH (13:00)
--- NOTE | 2017-06-24 13:50 | P.DS ---
Providers Date of admission: 06/21/17 13:43 Expected date of discharge: 06/24/17 Attending physician: Sudhakar Sandoval Primary care physician: Shimon Garcia [facility] Course: 82-year-old female one of my patient patient with past medical history of asthma, CAD with ischemic cardiomyopathy, previous history of lung cancer post resection who is known to have severe lower back pain. Patient had back surgery in May [address] Simmons and was complicated with bilateral pneumonia was in the hospital for over a week and subsequent development of multiple compression fractures. At that time she was seen and evaluated by spine surgery Dr. Simmons and the patient had a brace ended up going to [facility] for physical therapy and rehabilitation. She has been doing very well for the past 2 years and was recently seen in the office by me and had a physical, was brought into the emergency department at [facility] because of increased fatigue and weakness and she had a temperature of 101.1 patient was found to have a significant UTI with sepsis she was given IV fluid resuscitation in the form of normal saline and she was started on IV antibiotic in the form of Rocephin 1 g IV piggyback every 24 hours, patient did have urine culture and blood culture drawn was admitted to hospital for evaluation and treatment. 4/1: Patient is more awake and more alert today she continues to be very weak, we will decrease her IV fluid to 50 mL an hour, continue IV antibiotic, patient does appear to have a blood cultures with gram-negative rods and we will continue the same treatment until further identity of the organism. 4/2: Patient's is concerned that patient has had some confusion. She is complaining of lower back pain for which she is on chronic Percocet which will be changed to twice daily versus 3 times daily. Ensure clear will be added. Patient has not been eating very much. IV fluids will be discontinued. 4/3: Patient remains afebrile with normal white count. Blood and urine cultures are finalized with pansensitive E. coli. Patient is currently on ceftriaxone. Patient has been accepted at [facility] awaiting authorization but at this time, patient is stating that she does not want to go to rehab. Patient refused to work with PT and OT today. 44: Patient's vital signs are stable. Pulse ox 96% on room air. She worked with physical therapy today and ambulated well with no need for subacute rehab. manager pacu will set up home care. Patient did not have IV access this morning which was left out and patient switched to oral Ceftin which will be continued from home. Repeat blood culture has been obtained prior to discharge. Discharge diagnoses: 1. E. coli UTI with sepsis and E. coli bacteremia and septicemia with metabolic encephalopathy. 2. Acute kidney injury due to poor oral intake of fluid. 3. CAD and severe ischemic cardiomyopathy 4. Hypertension and hypertensive cardio vascular disease 5. Sjogren syndrome. 6. Chronic anemia 7. Chronic pain syndrome 8. Overactive bladder 9. 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 Caitlin Francis nurse practitioner acting as scribe for signing physician. Patient Condition at Discharge: Good Plan - Discharge Summary New Discharge Prescriptions: New Cefuroxime [Ceftin] 250 mg PO BID #20 tab Continue Isosorbide Mononitrate [Imdur] 60 mg PO QAM Pilocarpine HCl [Salagen] 7.5 mg PO BID L.acidoph/B.long/L.plant/B.lac [Probiotic Acidophilus Beads] 1 cap PO DAILY Multivitamins, Thera [Multivitamin (formulary)] 1 tab PO W/SUPPER Vit C/E/Zn/Coppr/Lutein/Zeaxan [Preservision Areds 2 Softgel] 1 cap PO DAILY OLANZapine [ZyPREXA] 10 mg PO PC-SUPPER Escitalopram [Lexapro] 10 mg PO QAM Cholecalciferol [Vitamin D3] 1,000 unit PO DAILY Ubidecarenone [Co Q-10] 100 mg PO DAILY Ascorbic Acid [Vitamin C] 500 mg PO DAILY Lisinopril 40 mg PO BID Lansoprazole [Prevacid] 15 mg PO QAM Metoprolol Succinate (ER) [Toprol XL] 150 mg PO QAM Albuterol Inhaler [Ventolin Hfa Inhaler] 1 - 2 puff INHALATION RT-Q6H PRN PRN Reason: Shortness Of Breath ALPRAZolam [Xanax] 0.25 mg PO BID PRN PRN Reason: Anxiety Tolterodine ER [Detrol LA] 2 mg PO DAILY oxyCODONE-APAP 5-325MG [Percocet 5-325 mg] 1 tab PO TID Discharge Medication List Isosorbide Mononitrate [Imdur] 60 mg PO QAM 07/29/13 [History] Pilocarpine HCl [Salagen] 7.5 mg PO BID 07/29/13 [History] L.acidoph/B.long/L.plant/B.lac [Probiotic Acidophilus Beads] 1 cap PO DAILY [History] Multivitamins, Thera [Multivitamin (formulary)] 1 tab PO W/SUPPER 03/01/15 [ History] Vit C/E/Zn/Coppr/Lutein/Zeaxan [Preservision Areds 2 Softgel] 1 cap PO DAILY [History] Escitalopram [Lexapro] 10 mg PO QAM 08/29/15 [History] OLANZapine [ZyPREXA] 10 mg PO PC-SUPPER 08/29/15 [History] Ascorbic Acid [Vitamin C] 500 mg PO DAILY 10/30/16 [History] Cholecalciferol [Vitamin D3] 1,000 unit PO DAILY 10/30/16 [History] Lansoprazole [Prevacid] 15 mg PO QAM 10/30/16 [History] Lisinopril 40 mg PO BID 10/30/16 [History] Ubidecarenone [Co Q-10] 100 mg PO DAILY 10/30/16 [History] Metoprolol Succinate (ER) [Toprol XL] 150 mg PO QAM 11/23/16 [History] ALPRAZolam [Xanax] 0.25 mg PO BID PRN 06/20/17 [History] Albuterol Inhaler [Ventolin Hfa Inhaler] 1 - 2 puff INHALATION RT-Q6H PRN [History] Tolterodine ER [Detrol LA] 2 mg PO DAILY 06/20/17 [History] oxyCODONE-APAP 5-325MG [Percocet 5-325 mg] 1 tab PO TID 06/20/17 [History] Cefuroxime [Ceftin] 250 mg PO BID #20 tab 06/24/17 [Rx] Follow up Appointment(s)/Referral(s): Shimon Garcia MD [Primary Care Provider] - 1 Week Patient Instructions/Handouts: Cefuroxime (By mouth), Urinary Tract Infection in Women (DC) Discharge Disposition: HOME WITH HOME HEALTH SERVICES
--- NOTE | 2017-07-03 08:12 | CDI ---
Last Revision, February 2017 Documentation Clarification Form Date: 06/24/17 From: Naye Haro Admit Date: 06/21/2017 1:43:00 PM Patient Name: Malena Victor Visit Number: [id number] Discharge Date: 07/03/17 ATTENTION: The Clinical Documentation Specialists (CDI) and [facility] Coding Staff appreciate your assistance in clarifying documentation. Please respond to the clarification below the line at the bottom and electronically sign. The CDI & [facility] Coding staff will review the response and follow-up if needed. Please note: Queries are made part of the Legal Health Record. If you have any questions, please contact the author of this message via ITS. Dr. Sudhakar Sandoval Colostomy back in place with hernia is documented under general gastroentestinal on the H&P. Nurses notes state stoma in normal in appearance.. The H&P documents "colostomy back in place with hernia". Per the Nursing Notes, the stoma is normal in appearance Please clarify If the patient colostomy with a hernia colostomy without a heria (old) was ruled out or documented in error MTDD
--- NOTE | 2017-07-08 07:30 | CDI ---
Documentation Clarification Form Date: 07/08/17 From: Naye Haro Admit Date: 06/21/2017 1:43:00 PM Patient Name: Malena Victor Visit Number: [id number] Discharge Date:06/21/17 ATTENTION: The Clinical Documentation Specialists (CDI) and [facility] Coding Staff appreciate your assistance in clarifying documentation. Please respond to the clarification below the line at the bottom and electronically sign. The CDI & [facility] Coding staff will review the response and follow-up if needed. Please note: Queries are made part of the Legal Health Record. If you have any questions, please contact the author of this message via ITS. Dr. Sudhakar Sandoval Colostomy back in place with hernia is documented under general gastroentestinal on the H&P. Nurses notes state stoma in normal in appearance.. The H&P documents "colostomy back in place with hernia". Per the Nursing Notes, the stoma is normal in appearance Please clarify If the patient colostomy with a hernia colostomy without a heria (old) was ruled out or documented in error MTDD
== END 2017-06-24 14:09 | disposition home health service (06) | DRG 871 ==
LOC: EC 08:05 → 5MS5E 09:54 → OBSVTOIN 06-21 13:43
PROVIDERS: ADMIT Internal Medicine Geriatric Medicine; ATTEND Internal Medicine Geriatric Medicine
DX: A41.51 Sepsis due to Escherichia coli [E. coli] (principal); G93.41 Metabolic encephalopathy; N17.9 Acute kidney failure, unspecified; I25.5 Ischemic cardiomyopathy; M35.00 Sjogren syndrome, unspecified; E86.0 Dehydration; I25.10 Atherosclerotic heart disease of native coronary artery without angina pectoris; N39.0 Urinary tract infection, site not specified; D64.9 Anemia, unspecified; G89.4 Chronic pain syndrome; N32.81 Overactive bladder; M19.90 Unspecified osteoarthritis, unspecified site; G47.30 Sleep apnea, unspecified; I11.9 Hypertensive heart disease without heart failure; F41.9 Anxiety disorder, unspecified; M54.5 Low back pain; F32.9 Major depressive disorder, single episode, unspecified; F06.8 Other specified mental disorders due to known physiological condition; J45.909 Unspecified asthma, uncomplicated; R01.1 Cardiac murmur, unspecified; Z87.19 Personal history of other diseases of the digestive system; Z88.0 Allergy status to penicillin; Z93.3 Colostomy status; Z88.8 Allergy status to other drugs, medicaments and biological substances; Z88.6 Allergy status to analgesic agent; Z88.1 Allergy status to other antibiotic agents; Z91.011 Allergy to milk products; Z79.891 Long term (current) use of opiate analgesic; Z79.899 Other long term (current) drug therapy; Z82.3 Family history of stroke; Z80.9 Family history of malignant neoplasm, unspecified; Z84.1 Family history of disorders of kidney and ureter; Z90.89 Acquired absence of other organs; Z90.49 Acquired absence of other specified parts of digestive tract; Z90.710 Acquired absence of both cervix and uterus; Z98.41 Cataract extraction status, right eye; Z98.42 Cataract extraction status, left eye; Z87.39 Personal history of other diseases of the musculoskeletal system and connective tissue; Z85.118 Personal history of other malignant neoplasm of bronchus and lung; Z87.01 Personal history of pneumonia (recurrent); Z90.2 Acquired absence of lung [part of]; Z85.048 Personal history of other malignant neoplasm of rectum, rectosigmoid junction, and anus; Z87.440 Personal history of urinary (tract) infections; Z88.5 Allergy status to narcotic agent; Z83.2 Family history of diseases of the blood and blood-forming organs and certain disorders involving the immune mechanism
CPT/HCPCS: 36415; 71046; 76700; 80048; 80053; 81001; 82550; 82553; 83605; 83735; 84484; 85025; 85027; 85610; 85730; 87040; 87077; 87086; 87186; 93005; 94760; 96361; 96374; 99285

== ENCOUNTER 2017-06-26 11:00 | Emergency (ER) | payer MEDICARE ==
[2017-06-26] MEDS ORDERED: DIPH,PERTUS(ACELL)TETVAC-LF 0.5 ML VIAL IM ONE (11:07)
--- NOTE | 2017-06-26 11:16 | ED ---
Fall HPI - General Chief Complaint: Fall Stated Complaint: Fall Time Seen by Provider: 06/26/17 11:00 Source: patient, EMS, RN notes reviewed, old records reviewed Mode of arrival: EMS - History of Present Illness Initial Comments: This is a 82-year-old female with a recent admission for urinary tract infection who was using her walker when she went to reach for a glass and lost her balance and fell striking her occipital scalp against the locker on a rocking chair that submitted of wood. She denies any loss of consciousness denies any neck or back pain at this time. No loss of function to her upper or lower extremities no blurry vision dizziness or other symptoms. She was brought in with a bandage to the wound area on the right occiput she also had a cervical collar in place. Of note I was able to clear the patient's C-spine initially on presentation using history and clinical examination. MD Complaint: fall - Related Data Home Medications Medication Instructions Recorded Confirmed Isosorbide Mononitrate [Imdur] 60 mg PO QAM 07/29/13 06/26/17 Pilocarpine HCl [Salagen] 7.5 mg PO BID 07/29/13 06/26/17 L.acidoph/B.long/L.plant/B.lac 1 cap PO DAILY 05/09/14 06/26/17 [Probiotic Acidophilus Beads] Multivitamins, Thera [Multivitamin 1 tab PO W/SUPPER 03/01/15 06/26/17 (formulary)] Vit C/E/Zn/Coppr/Lutein/Zeaxan 1 cap PO DAILY 03/14/15 06/26/17 [Preservision Areds 2 Softgel] Escitalopram [Lexapro] 10 mg PO QAM 08/29/15 06/26/17 OLANZapine [ZyPREXA] 10 mg PO PC-SUPPER 08/29/15 06/26/17 Ascorbic Acid [Vitamin C] 500 mg PO DAILY 10/30/16 06/26/17 Cholecalciferol [Vitamin D3] 1,000 unit PO DAILY 10/30/16 06/26/17 Lansoprazole [Prevacid] 15 mg PO QAM 10/30/16 06/26/17 Lisinopril 40 mg PO BID 10/30/16 06/26/17 Ubidecarenone [Co Q-10] 100 mg PO DAILY 10/30/16 06/26/17 Metoprolol Succinate (ER) [Toprol 150 mg PO QAM 11/23/16 06/26/17 XL] ALPRAZolam [Xanax] 0.25 mg PO BID PRN 06/20/17 06/26/17 Albuterol Inhaler [Ventolin Hfa 1 - 2 puff INHALATION RT-Q6H PRN 06/20/17 Inhaler] Tolterodine ER [Detrol LA] 2 mg PO DAILY 06/20/17 06/26/17 oxyCODONE-APAP 5-325MG [Percocet 1 tab PO TID 06/20/17 06/26/17 5-325 mg] Previous Rx's Medication Instructions Recorded Cefuroxime [Ceftin] 250 mg PO BID #20 tab 06/24/17 Allergies Allergy/AdvReac Type Severity Reaction Status Date / Time aspirin Allergy Anaphylaxis Verified 06/26/17 11:12 caffeine Allergy Unknown Verified 06/26/17 11:12 celecoxib [From Celebrex] Allergy Rash/Hives Verified 06/26/17 11:12 codeine Allergy Anaphylaxis Verified 06/26/17 11:12 doxycycline Allergy Unknown Verified 06/26/17 11:12 hydrocodone bitartrate Allergy Unknown Verified 06/26/17 11:12 [From [place]] milk Allergy Unknown Verified 06/26/17 11:12 Penicillins Allergy Rash/Hives Verified 06/26/17 11:12 rofecoxib [From Vioxx] Allergy Rash/Hives Verified 06/26/17 11:12 clarithromycin [From Biaxin] AdvReac Nausea Verified 06/26/17 11:12 clindamycin AdvReac Nausea Verified 06/26/17 11:12 levofloxacin [From Levaquin] AdvReac Nausea Verified 06/26/17 11:12 Morpholine Analogues AdvReac Confusion Verified 06/26/17 11:12 ranitidine HCl [From Zantac] AdvReac Unknown Verified 06/26/17 11:12 Review of Systems ROS Statement: Those systems with pertinent positive or pertinent negative responses have been documented in the HPI. ROS Other: All systems not noted in ROS Statement are negative. Past Medical History Past Medical History: Asthma, Coronary Artery Disease (CAD), Cancer, GI Bleed, Hypertension, Memory Impairment, Musculoskeletal Disorder, Osteoarthritis (OA), Sleep Apnea/CPAP/BIPAP Additional Past Medical History / Comment(s): Sjogren syndrome, RECTAL CANCER WITH COLOSTOMY , anemia, OVER ACTIVE BLADDER, hx. L4 fracture, BRONCH WASHING WAS POSITIVE FOR KLEBSIELLA PNUEMONAE., BACK PAIN History of Any Multi-Drug Resistant Organisms: ESBL Date of last positivie culture/infection: 10/30/16 ESBL Klebsiella MDRO Source:: Urine Past Surgical History: Adenoidectomy, Appendectomy, Back Surgery, Bowel Resection, Breast Surgery, Heart Catheterization, Hysterectomy, Tonsillectomy, Uterine Ablation Additional Past Surgical History / Comment(s): PERMANENT COLOSTOMY. throat surgery removed uvula,L3-L4 two fractured vertebrae, sofi cataracts, kyphoplasty L4, PICCLINE IN MAY FOR ABX(PNE) SINCE REMOVED. Past Anesthesia/Blood Transfusion Reactions: No Reported Reaction Additional Past Anesthesia/Blood Transfusion Reaction / Comment(s): HX OF BLOOD TRANSFUSION Past Psychological History: No Psychological Hx Reported Smoking Status: Never smoker Past Alcohol Use History: None Reported Past Drug Use History: None Reported - Past Family History Mother History Unknown: Yes Family Medical History: Dialysis, Renal Disease Brother(s) History Unknown: Yes Family Medical History: No Reported History Sister(s) History Unknown: Yes Family Medical History: No Reported History Additional Family Medical History / Comment(s): Patient has 3 adopted kids. Father Family Medical History: Cancer, CVA/TIA Additional Family Medical History / Comment(s): 3 out of 4 siblings dx. autoimmune disease General Exam - General Exam Comments Initial Comments: This is a well-developed well-nourished awake alert oriented 2 female she has a Roger Coma Scale of 15 Limitations: no limitations General appearance: alert Head exam: Present: normocephalic, normal inspection, other (Hematomas noted over the right occipital scalp with some dried blood in the hair is matted down and obscures the scalp this will require cleaning for further evaluation.) Eye exam: Present: normal appearance, PERRL, EOMI. Absent: scleral icterus, conjunctival injection, periorbital swelling ENT exam: Present: normal exam, mucous membranes moist Neck exam: Present: normal inspection, full ROM, other (I was able to clinically clear the C-spine and remove the collar). Absent: tenderness, meningismus, lymphadenopathy Respiratory exam: Present: normal lung sounds bilaterally. Absent: respiratory distress, wheezes, rales, rhonchi, stridor Cardiovascular Exam: Present: regular rate, normal rhythm, normal heart sounds. Absent: systolic murmur, diastolic murmur, rubs, gallop, clicks GI/Abdominal exam: Present: soft, normal bowel sounds. Absent: distended, tenderness, guarding, rebound, rigid Extremities exam: Present: full ROM, normal capillary refill, other (Chronic stasis changes with trace edema.). Absent: tenderness, pedal edema, joint swelling, calf tenderness Back exam: Present: full ROM, other (Slight kyphosis is noted). Absent: tenderness, CVA tenderness (R), CVA tenderness (L) Neurological exam: Present: alert, oriented X3, CN II-XII intact Psychiatric exam: Present: normal affect, normal mood Skin exam: Present: warm, dry, normal color. Absent: intact, rash Course Vital Signs 06/26/17 11:03 Temperature 97.6 F Pulse Rate 77 Respiratory 16 Rate Blood Pressure 176/76 O2 Sat by Pulse 98 Oximetry - Reevaluation(s) Reevaluation #1: 06/26/17 13:00 CT was negative for acute findings. I did examine the patient's scalp after the blood was cleaned off there was a 2.5 cm laceration noted to the right occipital scalp was transverse. No step-off no crepitation no formed by seen. It will require repair. Procedures - Laceration Laceration #1 Consent Obtained: verbal consent Time Out Performed: Yes Indication: laceration Site: scalp Description: linear Depth: simple, single layer Anesthetic Used: lidocaine 1%, without epi Anesthesia Technique: local infiltration Pre-repair: wound explored, irrigated extensively, deep structures intact Size of Sutures: other (4 surgical hanh) Technique: simple, interrupted Complications: other (None) Patient Tolerated Procedure: well Medical Decision Making - Medical Decision Making I did discuss the findings with the patient and her . Patient will be discharged. CTs were negative for acute findings the laceration was repaired using 4 surgical hanh - Radiology Data Radiology results: report reviewed (I did review the imaging and report no acute findings.), image reviewed Disposition Clinical Impression: Occipital scalp laceration, Scalp contusion, Scalp hematoma, Fall Disposition: HOME SELF-CARE Condition: Good Instructions: Fall Prevention for Older Adults (ED), Laceration (ED), Staple Care (ED) Additional Instructions: Staple removal in 10 days Referrals: Abel Jose MD [Primary Care Provider] - 1-2 days
--- NOTE | 2017-06-26 12:29 | CT ---
EXAMINATION TYPE: CT brain cspine wo con DATE OF EXAM: 06/26/2017 COMPARISON: Head 01/28/2016 HISTORY: 82-year-old female Fall, laceration to back of head CT DLP: 1479 mGycm Automated exposure control for dose reduction was used. Technique: Examination of the head was done in axial plane without intravenous contrast. Coronal and sagittal reconstructions performed. CT of the cervical spine was obtained in axial plane without intravenous injection of contrast mater ial. Coronal and sagittal reformatted images were obtained from the axial views for evaluation of f ractures, spinal alignment and canal. FINDINGS: Head: There is no evidence of acute intracranial hemorrhage, acute ischemic changes, mass, mass-effect, or extra-axial fluid collection. There is no effacement of cerebral sulci or basal subarachnoid cister ns. There is no hydrocephalus. There is no midline shift. Marvin-white matter distinction is preserv ed. Mild right posterior scalp contusion. No underlying calvarial fracture. Mild generalized supratentori al volume loss and mild patchy white matter hypodensities redemonstrated. Paranasal sinuses and mastoid air cells well pneumatized. Orbits and globes are intact. Cervical spine: There is bony deformity of the odontoid process that could reflect prior type I or type II dens fract ure, now healed in place. No predental space widening or prevertebral soft tissue swelling. There is inferior endplate deformity of C6 vertebral body which appears chronic. Multilevel facet and uncovertebral joint degenerative changes. No spinal canal stenosis appreciated by CT. Alignment is maintained. No significant neural foraminal stenosis identified. Sagittal and coronal reformatted images confirm above findings. COMBINED IMPRESSION: 1. Mild right posterior scalp contusion. No underlying calvarial fracture or acute intracranial abnor mality seen. Mild atrophy and mild changes of chronic small vessel ischemic disease. 2. No acute fracture or malalignment of the cervical spine. Correlate for a history of prior, now hea led type I versus type II odontoid fracture. Also, remote inferior endplate fracture of C6.
[2017-06-26 13:12] VITALS: BP 161/74; PULSE 70; RESP 17; TEMP 97.4
== END 2017-06-26 13:11 | disposition home or self-care (01) ==
LOC: EC 11:00
DX: S01.01XA Laceration without foreign body of scalp, initial encounter (principal); I25.10 Atherosclerotic heart disease of native coronary artery without angina pectoris; I10 Essential (primary) hypertension; M19.90 Unspecified osteoarthritis, unspecified site; G47.30 Sleep apnea, unspecified; Z99.89 Dependence on other enabling machines and devices; D64.9 Anemia, unspecified; Z23 Encounter for immunization; Z85.048 Personal history of other malignant neoplasm of rectum, rectosigmoid junction, and anus; Z79.891 Long term (current) use of opiate analgesic; Z79.899 Other long term (current) drug therapy; Z88.0 Allergy status to penicillin; Z88.5 Allergy status to narcotic agent; Z88.6 Allergy status to analgesic agent; Z91.011 Allergy to milk products; Z88.1 Allergy status to other antibiotic agents; Z88.8 Allergy status to other drugs, medicaments and biological substances; W18.09XA Striking against other object with subsequent fall, initial encounter; Y92.009 Unspecified place in unspecified non-institutional (private) residence as the place of occurrence of the external cause
CPT/HCPCS: 12001; 70450; 72125; 90471; 90715; 99284

== ENCOUNTER → 2017-07-03 | Outpatient (CLI) | payer MEDICARE ==
--- NOTE | 2017-07-03 15:48 | BD ---
EXAMINATION TYPE: MG DEXA axial skeleton. DATE OF EXAM: 07/03/2017 COMPARISON: NONE CLINICAL HISTORY: Height: 4 ft 10 in Weight: 128 FRAX RISK QUESTIONS: Alcohol (3 or more units per day): NO Family History (Parent hip fracture): NO Glucocorticoids (More than 3mos): NO (Ex: prednisone, prednisolone, methylprednisolone, dexamethasone, and hydrocortisone). History of Fracture in Adulthood: YES Secondary Osteoporosis: 1. Type 1 Diabetes: NO 2. Hyperthyroidism: NO 3. Menopause before 45: YES 4. Malnutrition: NO 5. Chronic liver disease: NO Rheumatoid Arthritis: NO Current Tobacco Use: NO RISK FACTORS HISTORY OF: Hip Fracture (Right/Left): RT HIP FX When: 2017 Spine Fracture: YES When: MULTIPLE TIMES WITH PAIN INJECTIONS Surgery to Spine/Hip(right/left)/Wrist (right/left): RT HIP When: 2017 Active: YES Postmenopausal woman: TOTAL HYST AGE 31 Take estrogen and/or progesterone medications: TOOK HRT NO LONGER TAKES How lon YEARS Lost more than 2 inches in height since high school: YES Frequent falls: YES MEDICATIONS: Additional Medications: LEXAPRO, XANAX, IMDUR, TOPROL, LISINOPRIL, PERCOCET,SALAGEN, PREVACID, DETROL LA, VENTOLIN, PRESERVISION, D3, PRO BIOTIC, OLANZAPINE Additional History: POOR HISTORIAN EXAM MEASUREMENTS: Bone mineral density about the L hip (g/cm2): 0.768 T Score values are as follows: -----L Neck: -1.9 -----L Total: -2.3 Bone mineral density has: DECREASED -13.9 % since study of: 2006 IMPRESSION: Osteopenia left femur. Increased fracture risk. NOTE: T-SCORE=SD OF THE YOUNG ADULT MEAN.
--- NOTE | 2017-07-07 09:04 | MM ---
Reason for exam: screening (asymptomatic). Last mammogram was performed 1 year and 7 months ago. History: Patient is postmenopausal, has history of colon cancer at age 69, and is nulliparous. Family history of breast cancer in paternal cousin at age 70, breast cancer in paternal aunt, and breast cancer in maternal cousin at age 40. Benign stereotactic core biopsy of the left breast, October 02, 2000. Benign excisional biopsy of the left breast, October 02, 2000. Took estrogen for 38 years. Physical Findings: A clinical breast exam by your physician is recommended on an annual basis and results should be correlated with mammographic findings. MG 3D Screening Mammo W/Cad Bilateral CC and MLO view(s) were taken. Prior study comparison: December 18, 2015, bilateral MG 3d diag mammo w/cad MAXIMO. July 25, 2014, bilateral MG diagnostic mammo w CAD MAXIMO. The breast tissue is extremely dense which could obscure a lesion on mammography. Previous mammotome biopsy in the left breast. No significant changes when compared with prior studies. ASSESSMENT: Negative, BI-RAD 1 RECOMMENDATION: Routine screening mammogram of both breasts in 1 year.
== END | disposition home or self-care (01) ==
LOC: RADMAMWWP 14:52
PROVIDERS: ATTEND Internal Medicine
DX: Z12.31 Encounter for screening mammogram for malignant neoplasm of breast (principal); M85.852 Other specified disorders of bone density and structure, left thigh
CPT/HCPCS: 77063; 77067; 77080

== ENCOUNTER 2017-08-03 07:38 | Emergency (ER) | payer MEDICARE ==
[2017-08-03 07:52] VITALS: RESP 18; TEMP 99.1
--- NOTE | 2017-08-03 08:11 | ED ---
General Adult HPI - General Chief complaint: Fall Stated complaint: Poss Hip Injury Time Seen by Provider: 08/03/17 07:40 Source: patient, RN notes reviewed, old records reviewed Mode of arrival: EMS Limitations: no limitations - History of Present Illness Initial comments: This is an 82-year-old female the ER status post fall. Patient took a fall at home while she was in the bathroom. Patient did not hit her head no loss of consciousness, complaining of right hip pain. Patient unable to ambulate. Patient's vital by EMS, EMS states patient does have severe pain on movement, patient does have history of right hip fracture - Related Data Home Medications Medication Instructions Recorded Confirmed Isosorbide Mononitrate [Imdur] 60 mg PO QAM 07/29/13 08/03/17 Pilocarpine HCl [Salagen] 7.5 mg PO BID 07/29/13 08/03/17 L.acidoph/B.long/L.plant/B.lac 1 cap PO DAILY 05/09/14 08/03/17 [Probiotic Acidophilus Beads] Multivitamins, Thera [Multivitamin 1 tab PO W/SUPPER 03/01/15 08/03/17 (formulary)] Vit C/E/Zn/Coppr/Lutein/Zeaxan 1 cap PO DAILY 03/14/15 08/03/17 [Preservision Areds 2 Softgel] Escitalopram [Lexapro] 10 mg PO QAM 08/29/15 08/03/17 OLANZapine [ZyPREXA] 10 mg PO PC-SUPPER 08/29/15 08/03/17 Ascorbic Acid [Vitamin C] 500 mg PO DAILY 10/30/16 08/03/17 Cholecalciferol [Vitamin D3] 1,000 unit PO DAILY 10/30/16 08/03/17 Lansoprazole [Prevacid] 15 mg PO QAM 10/30/16 08/03/17 Lisinopril 40 mg PO BID 10/30/16 08/03/17 Ubidecarenone [Co Q-10] 100 mg PO DAILY 10/30/16 08/03/17 Metoprolol Succinate (ER) [Toprol 150 mg PO QAM 11/23/16 08/03/17 XL] ALPRAZolam [Xanax] 0.25 mg PO BID PRN 06/20/17 08/03/17 Albuterol Inhaler [Ventolin Hfa 1 - 2 puff INHALATION RT-Q6H PRN 06/20/17 Inhaler] Tolterodine ER [Detrol LA] 2 mg PO DAILY 06/20/17 08/03/17 oxyCODONE-APAP 5-325MG [Percocet 1 tab PO TID 06/20/17 08/03/17 5-325 mg] Calcium Carb-Vit D 250Mg-125Un 1 tab PO DAILY 08/03/17 08/03/17 [Oscal 250+D] Allergies Allergy/AdvReac Type Severity Reaction Status Date / Time aspirin Allergy Anaphylaxis Verified 08/03/17 07:43 caffeine Allergy Unknown Verified 08/03/17 07:43 celecoxib [From Celebrex] Allergy Rash/Hives Verified 08/03/17 07:43 codeine Allergy Anaphylaxis Verified 08/03/17 07:43 doxycycline Allergy Unknown Verified 08/03/17 07:43 hydrocodone bitartrate Allergy Unknown Verified 08/03/17 07:43 [From [place]] milk Allergy Unknown Verified 08/03/17 07:43 Penicillins Allergy Rash/Hives Verified 08/03/17 07:43 rofecoxib [From Vioxx] Allergy Rash/Hives Verified 08/03/17 07:43 clarithromycin [From Biaxin] AdvReac Nausea Verified 08/03/17 07:43 clindamycin AdvReac Nausea Verified 08/03/17 07:43 levofloxacin [From Levaquin] AdvReac Nausea Verified 08/03/17 07:43 Morpholine Analogues AdvReac Confusion Verified 08/03/17 07:43 ranitidine HCl [From Zantac] AdvReac Unknown Verified 08/03/17 07:43 Review of Systems ROS Statement: Those systems with pertinent positive or pertinent negative responses have been documented in the HPI. ROS Other: All systems not noted in ROS Statement are negative. Past Medical History Past Medical History: Asthma, Coronary Artery Disease (CAD), Cancer, GI Bleed, Hypertension, Memory Impairment, Musculoskeletal Disorder, Osteoarthritis (OA), Sleep Apnea/CPAP/BIPAP Additional Past Medical History / Comment(s): Sjogren syndrome, RECTAL CANCER WITH COLOSTOMY , anemia, OVER ACTIVE BLADDER, hx. L4 fracture, BRONCH WASHING WAS POSITIVE FOR KLEBSIELLA PNUEMONAE., BACK PAIN History of Any Multi-Drug Resistant Organisms: ESBL Date of last positivie culture/infection: 10/30/16 ESBL Klebsiella MDRO Source:: Urine Past Surgical History: Adenoidectomy, Appendectomy, Back Surgery, Bowel Resection, Breast Surgery, Heart Catheterization, Hysterectomy, Tonsillectomy, Uterine Ablation Additional Past Surgical History / Comment(s): PERMANENT COLOSTOMY. throat surgery removed uvula,L3-L4 two fractured vertebrae, sofi cataracts, kyphoplasty L4, PICCLINE IN MAY FOR ABX(PNE) SINCE REMOVED. Past Anesthesia/Blood Transfusion Reactions: No Reported Reaction Additional Past Anesthesia/Blood Transfusion Reaction / Comment(s): HX OF BLOOD TRANSFUSION Past Psychological History: No Psychological Hx Reported Smoking Status: Never smoker Past Alcohol Use History: None Reported Past Drug Use History: None Reported - Past Family History Mother History Unknown: Yes Family Medical History: Dialysis, Renal Disease Brother(s) History Unknown: Yes Family Medical History: No Reported History Sister(s) History Unknown: Yes Family Medical History: No Reported History Additional Family Medical History / Comment(s): Patient has 3 adopted kids. Father Family Medical History: Cancer, CVA/TIA Additional Family Medical History / Comment(s): 3 out of 4 siblings dx. autoimmune disease General Exam - General Exam Comments Initial Comments: Right lower extremity is shortened Limitations: no limitations General appearance: alert, in no apparent distress Head exam: Present: atraumatic, normocephalic, normal inspection Eye exam: Present: normal appearance, PERRL, EOMI. Absent: scleral icterus, conjunctival injection, periorbital swelling ENT exam: Present: normal exam, mucous membranes moist Neck exam: Present: normal inspection. Absent: tenderness, meningismus, lymphadenopathy Respiratory exam: Present: normal lung sounds bilaterally. Absent: respiratory distress, wheezes, rales, rhonchi, stridor Cardiovascular Exam: Present: regular rate, normal rhythm, normal heart sounds. Absent: systolic murmur, diastolic murmur, rubs, gallop, clicks GI/Abdominal exam: Present: soft, normal bowel sounds. Absent: distended, tenderness, guarding, rebound, rigid Extremities exam: Present: normal inspection, full ROM, normal capillary refill. Absent: tenderness, pedal edema, joint swelling, calf tenderness Back exam: Present: normal inspection Neurological exam: Present: alert, oriented X3, CN II-XII intact Psychiatric exam: Present: normal affect, normal mood Skin exam: Present: warm, dry, intact, normal color. Absent: rash Course Vital Signs 08/03/17 08/03/17 07:47 08:51 Temperature 99.1 F Pulse Rate 87 75 Respiratory 18 18 Rate Blood Pressure 179/76 139/71 O2 Sat by Pulse 96 97 Oximetry Medical Decision Making - Medical Decision Making 82 female the ER status post fall, right hip pain and contusion, x-ray and CT negative for traumatic injury - Radiology Data Radiology results: report reviewed (X-ray right hip negative for traumatic injury, CT right hip negative for traumatic injury), image reviewed Disposition Clinical Impression: Fall, Contusion of right hip Disposition: HOME SELF-CARE Condition: Good Instructions: Fall Prevention for Older Adults (ED) Is patient prescribed a controlled substance at d/c from ED?: No Referrals: Shimon Garcia MD [Primary Care Provider] - 1-2 days
--- NOTE | 2017-08-03 08:41 | XR ---
EXAMINATION TYPE: XR chest 2V DATE OF EXAM: 08/03/2017 COMPARISON: Prior chest x-ray 06/20/2017 HISTORY: Pain, trauma TECHNIQUE: Frontal and lateral views of the chest are obtained. FINDINGS: There is no pleural effusion or pneumothorax seen. The cardiac silhouette size is stable. Bandlike area of increased attenuation in the right midlung is stable. There is evidence of old gra nulomatous disease. The osseous structures are remarkable for prior vertebroplasty changes in the spi ne, multiple osteoporotic compression fractures are noted, low bone mineralization likely limits eval uation, old left-sided rib fractures again noted. Patient is rotated, there are overlying cardiac margret ds. There are overlying artifacts. IMPRESSION: There are limitations to the exam. No acute cardiopulmonary process. Follow-up as indicat ed.
--- NOTE | 2017-08-03 08:45 | XR ---
Right femur HISTORY: Trauma and pain 2 views of the right femur on 4 images, comparison to previous exam dated 11/24/2016, 11/23/2016 Patient shows postoperative change status post open reduction internal fixation for proximal right fe moral fracture, some displacement of the lesser trochanter is chronic. Bone mineralization is somewha t decreased. Alignment is near-anatomic. Irregularity of the inferior pubic ramus on the right is tho ught to be chronic. IMPRESSION: Findings appear chronic, no acute fracture or dislocation is evident.
--- NOTE | 2017-08-03 09:53 | CT ---
EXAMINATION TYPE: CT hip RT wo con DATE OF EXAM: 08/03/2017 COMPARISON: X-ray 11/24/2016 HISTORY: Right sided hip pain post fall today. Prior fracture with repair [address] DLP: 597 mGycm Automated exposure control for dose reduction was used. FINDINGS: Postsurgical changes are noted involving the right femur. Is a persistent offset of the lesser trocha nter relative to the femoral neck suspicious for felt to BE most compatible with remote fracture and was in a similar pattern to the x-ray of 11/23/2016 time of original fracture. There is diffuse disc bulging and hypertrophy of the ligamentum flavum and facet joints L4-5 resultin g in severe canal stenosis. Chronic appearing deformity of the femoral neck. Visualized pubic rami are intact. There is a parastomal hernia adjacent to the ostomy within the right lower quadrant. Previous vertebr al plasty L4 noted. On the sagittal image there appears to be chronic deformity of the coccyx suggestive of remote trauma . IMPRESSION: POSTSURGICAL CHANGES INVOLVING THE RIGHT HIP WITH OFFSET OF THE RIGHT FEMORAL NECK RELATIVE TO THE LE SSER TROCHANTER FELT TO BE MOST LIKELY CHRONIC. CORRELATE CLINICALLY FOR CONFIRMATION. VERTEBROPLASTY OF L4 WITH DIFFUSE DISC BULGING AND DEGENERATIVE CHANGES RESULT IN SEVERE CANAL STENOS IS..
--- NOTE | 2017-08-03 09:58 | XR ---
EXAMINATION TYPE: XR pelvis AP view DATE OF EXAM: 08/03/2017 CLINICAL HISTORY: Pain from fall injury. TECHNIQUE: A single AP view of the pelvis is obtained. COMPARISON: 2 views right femur earlier today. Pelvic and right hip x-ray November 23, 2016. FINDINGS: Osseous structures are demineralized. There is no new acute fracture/dislocation evident i n the pelvis. There is partial visualization of metallic hardware through healed intertrochanteric fr acture right proximal femur. Sacroiliac joints are maintained. There is symmetric mild axial joint sp noé loss in both hips. Pubic symphysis is not suspiciously widened. Coils ventral wall hernia repair surgery overlying the left pelvis. Vertebroplasty L4 level is noted. IMPRESSION: There is no new acute fracture or dislocation in the pelvis. Right proximal femur fractu re with internal fixation hardware redemonstrated.
[2017-08-03 10:58] VITALS: BP 127/74; PULSE 79
== END 2017-08-03 10:58 | disposition home or self-care (01) ==
LOC: EC 07:38
DX: S70.01XA Contusion of right hip, initial encounter (principal); M21.70 Unequal limb length (acquired), unspecified site; I10 Essential (primary) hypertension; I25.10 Atherosclerotic heart disease of native coronary artery without angina pectoris; M35.00 Sjogren syndrome, unspecified; J45.909 Unspecified asthma, uncomplicated; N32.81 Overactive bladder; G47.30 Sleep apnea, unspecified; Z79.891 Long term (current) use of opiate analgesic; Z79.899 Other long term (current) drug therapy; Z88.0 Allergy status to penicillin; Z88.1 Allergy status to other antibiotic agents; Z88.5 Allergy status to narcotic agent; Z88.6 Allergy status to analgesic agent; Z88.8 Allergy status to other drugs, medicaments and biological substances; Z91.011 Allergy to milk products; Z91.018 Allergy to other foods; Z87.19 Personal history of other diseases of the digestive system; Z85.048 Personal history of other malignant neoplasm of rectum, rectosigmoid junction, and anus; Z87.39 Personal history of other diseases of the musculoskeletal system and connective tissue; Z99.89 Dependence on other enabling machines and devices; Z93.3 Colostomy status; W19.XXXA Unspecified fall, initial encounter; Y92.002 Bathroom of unspecified non-institutional (private) residence as the place of occurrence of the external cause
CPT/HCPCS: 71046; 72170; 99285

== ENCOUNTER 2017-09-01 10:23 | Day surgery (SDC) | payer MEDICARE ==
[2017-09-01] MEDS ORDERED: ERTAPENEM 1 GM in SODIUM CHLORIDE 0.9% 50 ML IVPB STA (10:46)
[2017-09-01 11:19] LABS: Basophils % (A) 0 %; Eosinophils # (A) 0.2 k/uL (0-0.7); Eosinophils % (A) 3 %; HCT 39.8 % (34.0-46.0); HGB 13.1 gm/dL (11.4-16.0); Lymphocytes % (A) 12 %; MCHC 32.8 g/dL (31.0-37.0); MCV 94.5 fL (80.0-100.0); Mean Platelet Volume 7.6; Monocytes # (A) 0.4 k/uL (0-1.0); Monocytes % (A) 5 %; Neutrophils # (A) 6.2 k/uL (1.3-7.7); Neutrophils % (A) 79 %; Platelet Count 148 k/uL (150-450); RBC 4.21 m/uL (3.80-5.40); RDW 13.2 % (11.5-15.5); WBC 7.8 k/uL (3.8-10.6)
[2017-09-01] MEDS ORDERED: LIDOCAINE 2% SYG (PF) 100 MG/5 ML MISCELLANE ONE (13:03)
[2017-09-01 13:44] VITALS: RESP 16
[2017-09-01 14:00] VITALS: PULSE 74
--- NOTE | 2017-09-01 16:14 | IR ---
EXAMINATION TYPE: IR cvc insert >=5 years DATE OF EXAM: 09/01/2017 COMPARISON: NONE CLINICAL HISTORY: Infection Needs long-term intravenous access for antibiotics. PROCEDURE: After informed consent, the skin overlying the left brachial vein was localized with ultrasound and n oted to be compressible and patent. An ultrasound image was obtained and submitted on the patient's chart. The overlying skin was prepped and draped and Lidocaine was used for local anesthesia. A ski n huang was made with a scalpel. Access was gained to the vein under ultrasound guidance with a 21 ga uge needle and a 0.018 inch wire was advanced. Access site was dilated with Peel-Away sheath and cat heter tailored to the appropriate length and advanced such that the distal tip is at the cavoatrial j unction. Spot image was obtained verifying placement. Catheter was fixed to the skin and a sterile dressing was placed following hemostasis. Catheter was aspirated and flushed with saline. Patient w as discharged in stable condition without complication. Maximal barrier technique is utilized. Ultra sound image is documented on the chart. Ultrasound used with sterile technique. Fluoro time and fluoroscopic images submitted to document procedure: 19 intraoperative C-arm images, 0.4 minutes fluoroscopy time IMPRESSION: STATUS POST ULTRASOUND AND FLUOROSCOPIC GUIDED PICC LINE PLACEMENT, READY FOR USE. THIS PROCEDURE WAS PERFORMED BY THE UNDERSIGNED.
== END 2017-09-01 14:20 | disposition home health service (06) ==
LOC: CATHCVL 10:23
PROVIDERS: ATTEND Radiology Diagnostic Radiology
DX: N39.0 Urinary tract infection, site not specified (principal); B96.89 Other specified bacterial agents as the cause of diseases classified elsewhere; Z16.12 Extended spectrum beta lactamase (ESBL) resistance
CPT/HCPCS: 36569; 76937; 77001; 80051; 82565; 84520; 85025; C1751; C1769; J2001; J1335

== ENCOUNTER → 2017-09-15 | Outpatient (CLI) | payer MEDICARE ==
[2017-09-15 16:04] VITALS: BP 143/64; PULSE 79; RESP 16; TEMP 97.9
== END | disposition home or self-care (01) ==
LOC: PROCWHC3 15:50
PROVIDERS: ATTEND Internal Medicine
DX: N39.0 Urinary tract infection, site not specified (principal); Z16.12 Extended spectrum beta lactamase (ESBL) resistance
CPT/HCPCS: 99213

== ENCOUNTER → 2017-09-21 | Outpatient (CLI) | payer MEDICARE ==
--- NOTE | 2017-09-21 15:51 | NM ---
EXAMINATION TYPE: NM bone scan whole body DATE OF EXAM: 09/21/2017 COMPARISON: CT right hip 08/03/2017 HISTORY: 82-year-old female with low back pain, personal history of osteoporosis fracture, acute T9 c ompression fracture, chronic T12, L1, and L2 compression fractures, previous L3 and L4 kyphoplasty. R ight hip basicervical fracture with internal fixation on 11/23/2016. TECHNIQUE: Delayed whole-body scanning was performed following the injection of 26 mCi Tc 99m MDP. I mages acquired 3 hours post injection. Anterior and posterior projections were obtained. FINDINGS: Degenerative tracer activity at the left sternoclavicular joint. Intense multilevel tracer activity i nvolving the lower thoracic spine. Degenerative tracer activity at or throughout the posterior elemen ts of the lumbar spine. Moderate increased activity in the right intertrochanteric region. Small focus of activity involving an anterior mid right rib end, probably posttraumatic. Degenerative activity within the left wrist and the bilateral base of the thumbs. IMPRESSION: 1. Moderate increased activity in the right intertrochanteric region could represent incomplete union and continued movement about the patient's IT fracture fixation. 2. Multilevel increased activity in the mid to lower rectus Suggests underlying vertebral compression deformities. 3. Scattered degenerative tracer activity as mentioned above.
== END | disposition home or self-care (01) ==
LOC: RADNMMAIN 10:17
PROVIDERS: ATTEND Physical Medicine & Rehabilitation
DX: R94.8 Abnormal results of function studies of other organs and systems (principal); Z98.890 Other specified postprocedural states
CPT/HCPCS: 78306; A9503

== ENCOUNTER → 2017-11-05 | Outpatient (CLI) | payer MEDICARE ==
--- NOTE | 2017-11-05 13:40 | FL ---
EXAMINATION TYPE: FL barium swallow DATE OF EXAM: 11/05/2017 CLINICAL HISTORY: Dysphagia and globus sensation in the midsternal region with both solids and liquid s. TECHNIQUE: A single contrast esophagram is performed utilizing thin and thick barium. A total of 2. 41 minutes of fluoroscopic time was utilized during procedure. 55 fluoroscopic images were saved. COMPARISON: None FINDINGS: Initial image demonstrates calcified hilar granulomas and kyphoplasty. The esophagus shows diffusely abnormal motility throughout the entirety of the exam and extensive delayed emptying into t he stomach. Distal esophageal incomplete stricture is noted that persists throughout the exam just pr oximal to the gastroesophageal junction that appears to be long segment without abrupt cut off. Terti anuja contractions are noted throughout the entirety of the exam. Large amount of retention is present within the vallecula, piriform sinuses, posterior pharyngeal wall and hypopharynx . This is only efrain red with water after the examination. Gastric fundus does not fill on the examination and may be rela boubacar to fold thickening, patient positioning or intrinsic mass. No hiatal hernia noted. No significant gastroesophageal reflux was seen during real time performance of this study. IMPRESSION: 1. 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 2. Marked upper esophageal and pharyngeal retention of contrast throughout the exam, aspiration risk. 3. Nonfilling of the gastric fundus that may relate to focal thickening, patient positioning or intri nsic mass.
== END | disposition home or self-care (01) ==
LOC: RADFLWHC 11:05
PROVIDERS: ATTEND Internal Medicine
DX: K22.8 Other specified diseases of esophagus (principal); J39.2 Other diseases of pharynx
CPT/HCPCS: 74220

== ENCOUNTER 2017-11-12 10:06 | Day surgery (SDC) | payer MEDICARE ==
[2017-11-11 12:39] VITALS: BMI 19.5
[2017-11-12 11:30] VITALS: TEMP 98.4
[2017-11-12] MEDS ORDERED: PROPOFOL 10 MG/ML 20 ML VIAL IV ONE (12:01)
[2017-11-12] MEDS ORDERED: LIDOCAINE 1% INJ 10MG/ML (20 ML MDV) ONE (12:01)
[2017-11-12 12:50] VITALS: BP 172/88; PULSE 90; RESP 16
--- NOTE | 2017-11-12 14:23 | P.PCN ---
Date of Procedure: 11/12/17 Procedure(s) Performed: Procedure: Esophagogastroduodenoscopy. Preoperative diagnosis: Dysphagia and abnormal barium swallow. Postoperative diagnosis: 1. Sliding hiatal hernia with no obvious esophagitis or complicated reflux disease. 2. Mild gastritis with no ulcers or gastric outlet obstruction. 3. No abnormalities in the esophagus or stomach to correspond to the abnormalities on the barium study. Preparation and sedation: Was provided by anesthesia. Brief clinical history: The patient is an 82-year-old female who is scheduled for this evaluation because of issues with swallowing and a recent barium swallow showing dysmotility and possible stricture. There is also possible abnormality in the fundus. The patient had an upper endoscopy in April of this year that showed small hiatal hernia, mild gastritis but no definite strictures or esophagitis. The patient has history of Sjogren's syndrome. No alarm symptoms. Procedure: With the patient on her left lateral decubitus position and after informed consent and adequate sedation, I passed the Olympus-GIF 160 video upper endoscope through the cricopharyngeus down the esophagus. GE junction was around 35 cm from the incisors and there was a small sliding hiatal hernia but no obvious esophagitis or complicated reflux disease. No stricture was seen. The endoscope was then passed into the stomach which was insufflated with air and inspected in detail including the retroflex view in the cardia. There was some mottling and erythema in the stomach most obvious in the antrum and immediate prepyloric area as previously described but there were no ulcers or erosions. Pyloric channel did not show any ulcers and there was no evidence of mechanical obstruction. Post bulbar area and descending duodenum appeared within normal limits. The patient tolerated the procedure well and no dilation was indicated . Plan: The patient was reassured. She was advised regarding dietary supplements. Will monitor her nutritional status closely and further plans based on her course.
== END 2017-11-12 13:37 | disposition home or self-care (01) ==
LOC: ORWHC2ENDO 10:06
DX: K44.9 Diaphragmatic hernia without obstruction or gangrene (principal); K29.70 Gastritis, unspecified, without bleeding; I25.10 Atherosclerotic heart disease of native coronary artery without angina pectoris; I10 Essential (primary) hypertension; G47.33 Obstructive sleep apnea (adult) (pediatric); M35.00 Sjogren syndrome, unspecified; M19.90 Unspecified osteoarthritis, unspecified site; Z99.89 Dependence on other enabling machines and devices; J45.909 Unspecified asthma, uncomplicated; K21.9 Gastro-esophageal reflux disease without esophagitis; Z79.899 Other long term (current) drug therapy
CPT/HCPCS: 43235; J2001; J2704

== ENCOUNTER 2017-12-16 21:55 | Inpatient (IN) | payer MEDICARE ==
[2017-12-16] MEDS ORDERED: SODIUM CHLORIDE 0.9% 1,000 ML IV ONE (22:02)
--- NOTE | 2017-12-16 22:06 | ED ---
Fall HPI - General Stated Complaint: Hip Fx Time Seen by Provider: 12/16/17 22:00 Source: patient, EMS, RN notes reviewed - History of Present Illness Initial Comments: This is a 82-year-old female who does ambulate is a walker who turned and lost her balance and fell she hit her head no loss of consciousness but complains of right-sided head and neck pain just complains right hip pain she was brought in by EMS. She has a right lower extremity is shortened and rotated laterally. No other injuries reported. She had no shortness breath fevers chills nausea vomiting sweats no palpitations. She was given IV pain medication with some relief MD Complaint: fall - Related Data Home Medications Medication Instructions Recorded Confirmed Isosorbide Mononitrate [Imdur] 60 mg PO QAM 07/29/13 12/16/17 Pilocarpine HCl [Salagen] 7.5 mg PO BID 07/29/13 12/16/17 L.acidoph/B.long/L.plant/B.lac 1 cap PO DAILY 05/09/14 12/16/17 [Probiotic Acidophilus Beads] Multivitamins, Thera [Multivitamin 1 tab PO DAILY 03/01/15 12/16/17 (formulary)] Vit C/E/Zn/Coppr/Lutein/Zeaxan 1 cap PO DAILY 03/14/15 12/16/17 [Preservision Areds 2 Softgel] Escitalopram [Lexapro] 10 mg PO QAM 08/29/15 12/16/17 OLANZapine [ZyPREXA] 10 mg PO PC-SUPPER 08/29/15 12/16/17 Ascorbic Acid [Vitamin C] 500 mg PO DAILY 10/30/16 12/16/17 Cholecalciferol [Vitamin D3] 1,000 unit PO DAILY 10/30/16 12/16/17 Lansoprazole [Prevacid] 15 mg PO QAM 10/30/16 12/16/17 Lisinopril 40 mg PO BID 10/30/16 12/16/17 Ubidecarenone [Co Q-10] 100 mg PO DAILY 10/30/16 12/16/17 Metoprolol Succinate (ER) [Toprol 50 mg PO QAM 11/23/16 12/16/17 XL] ALPRAZolam [Xanax] 0.25 mg PO BID PRN 06/20/17 12/16/17 Albuterol Inhaler [Ventolin Hfa 1 - 2 puff INHALATION RT-Q6H PRN 06/20/17 Inhaler] Tolterodine ER [Detrol LA] 2 mg PO DAILY 06/20/17 12/16/17 oxyCODONE-APAP 5-325MG [Percocet 1 tab PO BID PRN 06/20/17 12/16/17 5-325 mg] Calcium Carb-Vit D 250Mg-125Un 1 tab PO DAILY 08/03/17 12/16/17 [Oscal 250+D] Allergies Allergy/AdvReac Type Severity Reaction Status Date / Time aspirin Allergy Anaphylaxis Verified 12/16/17 22:39 caffeine Allergy CREATES Verified 12/16/17 22:39 TOO MUCH STOMACH ACID celecoxib [From Celebrex] Allergy Rash/Hives Verified 12/16/17 22:39 codeine Allergy Anaphylaxis Verified 12/16/17 22:39 doxycycline Allergy Unknown Verified 12/16/17 22:39 hydrocodone bitartrate Allergy Unknown Verified 12/16/17 22:39 [From [place]] milk Allergy Rash/Hives Verified 12/16/17 22:39 Penicillins Allergy Rash/Hives Verified 12/16/17 22:39 rofecoxib [From Vioxx] Allergy Rash/Hives Verified 12/16/17 22:39 clarithromycin [From Biaxin] AdvReac Nausea Verified 12/16/17 22:39 clindamycin AdvReac Nausea Verified 12/16/17 22:39 levofloxacin [From Levaquin] AdvReac Nausea Verified 12/16/17 22:39 Morpholine Analogues AdvReac Confusion Verified 12/16/17 22:39 ranitidine HCl [From Zantac] AdvReac Rash/Hives Verified 12/16/17 22:39 Review of Systems ROS Statement: Those systems with pertinent positive or pertinent negative responses have been documented in the HPI. ROS Other: All systems not noted in ROS Statement are negative. Past Medical History Past Medical History: Asthma, Coronary Artery Disease (CAD), Cancer, GI Bleed, Hypertension, Memory Impairment, Musculoskeletal Disorder, Osteoarthritis (OA), Sleep Apnea/CPAP/BIPAP Additional Past Medical History / Comment(s): Sjogren syndrome, RECTAL CANCER WITH COLOSTOMY , anemia, OVER ACTIVE BLADDER, hx. L4 fracture, BRONCH WASHING WAS POSITIVE FOR KLEBSIELLA PNUEMONAE., BACK PAIN. FREQUENT FALLS. History of Any Multi-Drug Resistant Organisms: ESBL Date of last positivie culture/infection: 08/26/17 ESBL Klebsiella MDRO Source:: Urine Past Surgical History: Adenoidectomy, Appendectomy, Back Surgery, Bowel Resection, Breast Surgery, Heart Catheterization, Hysterectomy, Tonsillectomy, Uterine Ablation Additional Past Surgical History / Comment(s): PERMANENT COLOSTOMY. throat surgery removed uvula,L3-L4 two fractured vertebrae, sofi cataracts, kyphoplasty L4, PICCLINE IN MAY FOR ABX(PNE) SINCE REMOVED. PICC LINE PLACEMENT, COLONOSCOPY, EGD, UTI 08/2017 Past Anesthesia/Blood Transfusion Reactions: No Reported Reaction Additional Past Anesthesia/Blood Transfusion Reaction / Comment(s): HX OF BLOOD TRANSFUSION Smoking Status: Never smoker - Past Family History Mother History Unknown: Yes Family Medical History: Dialysis, Renal Disease Brother(s) History Unknown: Yes Family Medical History: No Reported History Sister(s) History Unknown: Yes Family Medical History: No Reported History Additional Family Medical History / Comment(s): Patient has 3 adopted kids. Father Family Medical History: Cancer, CVA/TIA Additional Family Medical History / Comment(s): 3 out of 4 siblings dx. autoimmune disease General Exam - General Exam Comments Initial Comments: This is a well-developed asthenic appearing female who is awake alert oriented 3 Roger Coma Scale of 15 she does have a cervical collar in place. General appearance: alert, in no apparent distress Head exam: Present: normocephalic, normal inspection, other (Mild scalp tenderness palpation along the right occipital scalp no step-off or crepitation) Eye exam: Present: normal appearance, PERRL, EOMI. Absent: scleral icterus, conjunctival injection, periorbital swelling ENT exam: Present: normal exam, mucous membranes moist Neck exam: Present: normal inspection, tenderness (Mild lateral right neck tenderness cervical collar is maintained). Absent: meningismus, lymphadenopathy Respiratory exam: Present: normal lung sounds bilaterally. Absent: respiratory distress, wheezes, rales, rhonchi, stridor Cardiovascular Exam: Present: regular rate, normal rhythm, normal heart sounds. Absent: systolic murmur, diastolic murmur, rubs, gallop, clicks GI/Abdominal exam: Present: soft, normal bowel sounds. Absent: distended, tenderness, guarding, rebound, rigid Extremities exam: Present: tenderness, normal capillary refill, other (Right lower extremity is shortened and slightly rotated compared to the left there is tenderness palpation of the right hip. No pelvis tenderness.). Absent: full ROM, pedal edema, joint swelling, calf tenderness Back exam: Present: normal inspection Neurological exam: Present: alert, oriented X3, CN II-XII intact Psychiatric exam: Present: normal affect, normal mood Skin exam: Present: warm, dry, intact, normal color. Absent: rash Course Vital Signs 12/16/17 12/16/17 21:58 23:01 Temperature 98.4 F Pulse Rate 99 96 Respiratory 20 18 Rate Blood Pressure 140/66 126/60 O2 Sat by Pulse 96 96 Oximetry Medical Decision Making - Medical Decision Making I did discuss findings with the patient and her as well as with Dr. Crane patient will be admitted with consultation by Dr. Garcia's service - Lab Data Result diagrams: 12/16/17 22:15 12/16/17 22:15 Lab Results 12/16/17 12/16/17 12/16/17 Range/Units 22:15 22:15 22:15 WBC 12.0 H (3.8-10.6) k/uL RBC 3.39 L (3.80-5.40) m/uL Hgb 10.5 L (11.4-16.0) gm/dL Hct 32.6 L (34.0-46.0) % MCV 96.0 (80.0-100.0) fL MCH 30.9 (25.0-35.0) pg MCHC 32.2 (31.0-37.0) g/dL RDW 12.9 (11.5-15.5) % Plt Count 136 L (150-450) k/uL Neutrophils % 83 % Lymphocytes % 11 % Monocytes % 4 % Eosinophils % 1 % Basophils % 0 % Neutrophils # 9.9 H (1.3-7.7) k/uL Lymphocytes # 1.3 (1.0-4.8) k/uL Monocytes # 0.5 (0-1.0) k/uL Eosinophils # 0.2 (0-0.7) k/uL Basophils # 0.0 (0-0.2) k/uL PT 10.4 (9.0-12.0) sec INR 1.1 (<1.2) APTT 23.1 (22.0-30.0) sec Sodium 138 (137-145) mmol/L Potassium 4.2 (3.5-5.1) mmol/L Chloride 107 (98-107) mmol/L Carbon Dioxide 23 (22-30) mmol/L Anion Gap 8 mmol/L BUN 36 H (7-17) mg/dL Creatinine 1.04 (0.52-1.04) mg/dL Est GFR (CKD-EPI)AfAm 58 (>60 ml/min/1.73 sqM) Est GFR (CKD-EPI)NonAf 50 (>60 ml/min/1.73 sqM) Glucose 134 H (74-99) mg/dL Calcium 8.6 (8.4-10.2) mg/dL Total Bilirubin 0.3 (0.2-1.3) mg/dL AST 35 (14-36) U/L ALT 22 (9-52) U/L Alkaline Phosphatase 50 (38-126) U/L Total Creatine Kinase (30-135) U/L CK-MB (CK-2) (0.0-2.4) ng/mL CK-MB (CK-2) Rel Index Troponin I (0.000-0.034) ng/mL Total Protein 6.3 (6.3-8.2) g/dL Albumin 3.4 L (3.5-5.0) g/dL Urine Color Urine Appearance (Clear) Urine pH (5.0-8.0) Ur Specific Weir (1.001-1.035) Urine Protein (Negative) Urine Glucose (UA) (Negative) Urine Ketones (Negative) Urine Blood (Negative) Urine Nitrite (Negative) Urine Bilirubin (Negative) Urine Urobilinogen (<2.0) mg/dL Ur Leukocyte Esterase (Negative) Urine RBC (0-5) /hpf Urine WBC (0-5) /hpf Urine Mucus (None) /hpf 12/16/17 12/16/17 Range/Units 22:15 23:30 WBC (3.8-10.6) k/uL RBC (3.80-5.40) m/uL Hgb (11.4-16.0) gm/dL Hct (34.0-46.0) % MCV (80.0-100.0) fL MCH (25.0-35.0) pg MCHC (31.0-37.0) g/dL RDW (11.5-15.5) % Plt Count (150-450) k/uL Neutrophils % % Lymphocytes % % Monocytes % % Eosinophils % % Basophils % % Neutrophils # (1.3-7.7) k/uL Lymphocytes # (1.0-4.8) k/uL Monocytes # (0-1.0) k/uL Eosinophils # (0-0.7) k/uL Basophils # (0-0.2) k/uL PT (9.0-12.0) sec INR (<1.2) APTT (22.0-30.0) sec Sodium (137-145) mmol/L Potassium (3.5-5.1) mmol/L Chloride (98-107) mmol/L Carbon Dioxide (22-30) mmol/L Anion Gap mmol/L BUN (7-17) mg/dL Creatinine (0.52-1.04) mg/dL Est GFR (CKD-EPI)AfAm (>60 ml/min/1.73 sqM) Est GFR (CKD-EPI)NonAf (>60 ml/min/1.73 sqM) Glucose (74-99) mg/dL Calcium (8.4-10.2) mg/dL Total Bilirubin (0.2-1.3) mg/dL AST (14-36) U/L ALT (9-52) U/L Alkaline Phosphatase (38-126) U/L Total Creatine Kinase 22 L (30-135) U/L CK-MB (CK-2) 1.2 (0.0-2.4) ng/mL CK-MB (CK-2) Rel Index 5.5 Troponin I <0.012 (0.000-0.034) ng/mL Total Protein (6.3-8.2) g/dL Albumin (3.5-5.0) g/dL Urine Color Yellow Urine Appearance Clear (Clear) Urine pH 6.0 (5.0-8.0) Ur Specific Weir 1.012 (1.001-1.035) Urine Protein Negative (Negative) Urine Glucose (UA) Negative (Negative) Urine Ketones Negative (Negative) Urine Blood Negative (Negative) Urine Nitrite Negative (Negative) Urine Bilirubin Negative (Negative) Urine Urobilinogen <2.0 (<2.0) mg/dL Ur Leukocyte Esterase Large H (Negative) Urine RBC 1 (0-5) /hpf Urine WBC 34 H (0-5) /hpf Urine Mucus Rare H (None) /hpf - EKG Data -: EKG Interpreted by Me EKG shows normal: sinus rhythm (Sinus rhythm of 97 UT interval 196 QRS 90 QT since QTC 380/482 old inferior changes) - Radiology Data Radiology results: report reviewed (I did review the imaging and reports is evidence of a superior and inferior right pubic ramus fracture. It appears be intact as well as the hardware. CT was negative for acute findings.), image reviewed Disposition Clinical Impression: Pelvis fracture, right, Fracture of pubic ramus, Fall, Dehydration, Prerenal azotemia Disposition: ADMITTED IP TO THIS [facility] Condition: Stable Referrals: Shimon Garcia MD [Primary Care Provider] - 1-2 days
[2017-12-16] MEDS ORDERED: fentaNYL (PF) 50 MCG/ML 2 ML AMP IV STA (22:50)
--- NOTE | 2017-12-16 22:50 | CT ---
EXAMINATION TYPE: CT brain ree vargas DATE OF EXAM: 12/16/2017 COMPARISON: 06/26/2017 HISTORY: Fell from standing position, right sided head and neck pain. CT DLP: 1135.5 mGycm Automated exposure control for dose reduction was used. TECHNIQUE: CT scan of the head and cervical spine are performed without contrast. FINDINGS: There is cerebral cortical atrophy. There is no mass effect nor midline shift. There is n o sign of intracranial hemorrhage. There is hypodensity in the periventricular white matter. The calv arium is intact. Cervical vertebra have normal alignment. Posterior elements are intact. Facet joints are intact. Ther e is slight anterior wedging of C6 vertebra. This appears old. Skull base is intact. IMPRESSION: Cerebral atrophy and chronic small vessel ischemia. No acute intracranial abnormality. No change. Old anterior wedging of C6 vertebral body. No change compared to old exam. No acute bony abnormality.
[2017-12-16 22:59] LABS: Basophils % (A) 0 %; Eosinophils # (A) 0.2 k/uL (0-0.7); Eosinophils % (A) 1 %; HCT 32.6 % (34.0-46.0); HGB 10.5 gm/dL (11.4-16.0); Lymphocytes # (A) 1.3 k/uL (1.0-4.8); Lymphocytes % (A) 11 %; MCH 30.9 pg (25.0-35.0); MCHC 32.2 g/dL (31.0-37.0); Mean Platelet Volume 7.8; Monocytes # (A) 0.5 k/uL (0-1.0); Monocytes % (A) 4 %; Neutrophils # (A) 9.9 k/uL (1.3-7.7); Neutrophils % (A) 83 %; Platelet Count 136 k/uL (150-450); RBC 3.39 m/uL (3.80-5.40); RDW 12.9 % (11.5-15.5)
[2017-12-16 23:07] LABS: INR 1.1 (<1.2); Partial Thromboplastin Time 23.1 sec (22.0-30.0); Prothrombin Time 10.4 sec (9.0-12.0)
--- NOTE | 2017-12-16 23:07 | XR ---
EXAMINATION TYPE: XR chest 1V portable DATE OF EXAM: 12/16/2017 COMPARISON: 08/03/2017 HISTORY: Pain TECHNIQUE: Single frontal view of the chest is obtained. FINDINGS: There is some linear density in the right midlung. There is multilevel vertebroplasty in t he thoracic spine. There is no heart failure. There is old left-sided healed rib fracture. There is n o pleural effusion. IMPRESSION: Subsegmental atelectasis or scarring in the right midlung similar to old exam. No heart failure.
--- NOTE | 2017-12-16 23:09 | XR ---
EXAMINATION TYPE: XR Hip RT and AP Pelvis DATE OF EXAM: 12/16/2017 COMPARISON: 08/03/2017 HISTORY: Right hip pain TECHNIQUE: A single AP view of the pelvis is obtained. Two views of the right hip are obtained. FINDINGS: There are fractures of the right superior and inferior pubic rami. There is no significant displacement. Bones are osteopenic. There is intramedullary jordana and transverse screw fixing old intra trochanteric fracture right femur. Sacroiliac joints appear intact. IMPRESSION: Acute fractures right superior and inferior pubic rami compared to old exam.
[2017-12-16 23:14] LABS: Albumin 3.4 g/dL (3.5-5.0); Calcium 8.6 mg/dL (8.4-10.2); Potassium 4.2 mmol/L (3.5-5.1); Total Bilirubin 0.3 mg/dL (0.2-1.3); Total Protein 6.3 g/dL (6.3-8.2)
[2017-12-16 23:17] LABS: Creatine Kinase 22 U/L (30-135)
[2017-12-16 23:29] LABS: Creatine Kinase MB 1.2 ng/mL (0.0-2.4); Troponin I <0.012 ng/mL (0.000-0.034)
[2017-12-16 23:45] LABS: Appearance,Urine Clear (Clear); Bilirubin,Urine Negative (Negative); Blood,Urine Negative (Negative); Color,Urine Yellow; Glucose,Urine (UA) Negative (Negative); Ketones,Urine Negative (Negative); Leukocyte Esterase,Urine Large (Negative); Mucus,Urine Rare /hpf; Nitrite,Urine Negative (Negative); Protein,Urine Negative (Negative); RBC,Urine 1 /hpf (0-5); Specific Gravity,Urine 1.012 (1.001-1.035); Urobilinogen,Urine <2.0 mg/dL (<2.0); WBC,Urine 34 /hpf (0-5)
[2017-12-17] MEDS ORDERED: ONDANSETRON 4 MG/2 ML VIAL IVP PRN (00:17)
[2017-12-17] MEDS ORDERED: HYDROmorphone 1 MG/ML 1 ML SYRINGE IVP PRN (00:17)
[2017-12-17] MEDS ORDERED: NALOXONE 0.4 MG/ML 1 ML VIAL IV PRN (00:17)
[2017-12-17] MEDS ORDERED: ALPRAZolam 0.25 MG TAB PO PRN (00:19)
[2017-12-17] MEDS ORDERED: ALBUTEROL NEBULIZED 2.5 MG/3 ML INHALATION PRN (00:19)
[2017-12-17] MEDS ORDERED: oxyCODONE-APAP 5-325MG 1 EACH TAB PO PRN (00:19)
[2017-12-17] MEDS ORDERED: HYDROmorphone 1 MG/ML 1 ML SYRINGE IVP STA (00:32)
[2017-12-17] MEDS: SODIUM CHLORIDE 0.9% 1,000 ML IV SCH ×2 (00:39→15:00)
[2017-12-17 01:26] VITALS: BMI 20.2
[2017-12-17] MEDS: traMADol 50 MG TAB PO PRN ×2 (06:05→17:21)
[2017-12-17] MEDS: LISINOPRIL 20 MG TAB PO SCH ×2 (08:33→19:59)
[2017-12-17] MEDS: METOPROLOL SUCCINATE (ER) 50 MG TAB.ER.24H PO SCH (08:33)
[2017-12-17] MEDS: ISOSORBIDE MONONITRATE ER 60 MG TAB.ER.24H PO SCH (08:33)
[2017-12-17] MEDS: OXYBUTYNIN XL 5 MG TAB.ER.24 PO SCH (08:33)
[2017-12-17] MEDS: CALCIUM CARB-VIT D 250MG-125UN 1 EACH TAB PO SCH (08:34)
[2017-12-17] MEDS: MULTIVITAMINS, THERA 1 EACH TAB PO SCH (08:34)
[2017-12-17] MEDS: ASCORBIC ACID 500 MG TAB PO SCH (08:34)
[2017-12-17] MEDS: HEPARIN SODIUM,PORCINE 5,000 UNIT/ML 1 ML VIAL SQ SCH ×2 (08:34→19:55)
[2017-12-17] MEDS: ESCITALOPRAM 10 MG TAB PO SCH (08:34)
[2017-12-17] MEDS: PILOCARPINE 5 MG TAB PO SCH ×2 (08:35→19:55)
[2017-12-17] MEDS: ACETAMINOPHEN TAB 325 MG TAB PO PRN ×2 (08:36→15:07)
--- NOTE | 2017-12-17 08:48 | P.HPOR ---
History of Present Illness H&P Date: 12/17/17 Chief Complaint: right pubic ramus fracture 82 year old female presents with right pubic ramus fracture after a fall in her home two days ago. She said she was using her walker and fell when trying to turn around. She denies any dizziness or light headedness when the fall occured. She has a history of a right femur fracture treated with IT-nail but is unaware of the date. She lives with her and is having difficulty ambulating. She is admitted to our service for orthopedic care and possible rehab placement. Past Medical History Past Medical History: Asthma, Coronary Artery Disease (CAD), Cancer, GI Bleed, Hypertension, Memory Impairment, Musculoskeletal Disorder, Osteoarthritis (OA), Sleep Apnea/CPAP/BIPAP Additional Past Medical History / Comment(s): Sjogren syndrome, RECTAL CANCER WITH COLOSTOMY , anemia, OVER ACTIVE BLADDER, hx. L4 fracture, BRONCH WASHING WAS POSITIVE FOR KLEBSIELLA PNUEMONAE., BACK PAIN. FREQUENT FALLS. History of Any Multi-Drug Resistant Organisms: ESBL Date of last positivie culture/infection: 08/26/17 ESBL Klebsiella MDRO Source:: Urine Past Surgical History: Adenoidectomy, Appendectomy, Back Surgery, Bowel Resection, Breast Surgery, Heart Catheterization, Hysterectomy, Tonsillectomy, Uterine Ablation Additional Past Surgical History / Comment(s): PERMANENT COLOSTOMY. throat surgery removed uvula,L3-L4 two fractured vertebrae, sofi cataracts, kyphoplasty L4, PICCLINE IN MAY FOR ABX(PNE) SINCE REMOVED. PICC LINE PLACEMENT, COLONOSCOPY, EGD, UTI 08/2017 Past Anesthesia/Blood Transfusion Reactions: No Reported Reaction Additional Past Anesthesia/Blood Transfusion Reaction / Comment(s): HX OF BLOOD TRANSFUSION Past Psychological History: No Psychological Hx Reported Additional Psychological History / Comment(s): cared for in the family home by the and children. Retired. No experience. No international travel. No tobacco or alcohol use. No animal exposures Smoking Status: Never smoker Past Alcohol Use History: None Reported Past Drug Use History: None Reported - Past Family History Mother History Unknown: Yes Family Medical History: Dialysis, Renal Disease Brother(s) History Unknown: Yes Family Medical History: No Reported History Sister(s) History Unknown: Yes Family Medical History: No Reported History Additional Family Medical History / Comment(s): Parkinsons Father Family Medical History: Cancer, CVA/TIA Additional Family Medical History / Comment(s): 3 out of 4 siblings dx. autoimmune disease Medications and Allergies Home Medications Medication Instructions Recorded Confirmed Type Isosorbide Mononitrate [Imdur] 60 mg PO QAM 07/29/13 12/16/17 History Pilocarpine HCl [Salagen] 7.5 mg PO BID 07/29/13 12/16/17 History L.acidoph/B.long/L.plant/B.lac 1 cap PO DAILY 05/09/14 12/16/17 History [Probiotic Acidophilus Beads] Multivitamins, Thera [Multivitamin 1 tab PO DAILY 03/01/15 12/16/17 History (formulary)] Vit C/E/Zn/Coppr/Lutein/Zeaxan 1 cap PO DAILY 03/14/15 12/16/17 History [Preservision Areds 2 Softgel] Escitalopram [Lexapro] 10 mg PO QAM 08/29/15 12/16/17 History OLANZapine [ZyPREXA] 10 mg PO PC-SUPPER 08/29/15 12/16/17 History Ascorbic Acid [Vitamin C] 500 mg PO DAILY 10/30/16 12/16/17 History Cholecalciferol [Vitamin D3] 1,000 unit PO DAILY 10/30/16 12/16/17 History Lansoprazole [Prevacid] 15 mg PO QAM 10/30/16 12/16/17 History Lisinopril 40 mg PO BID 10/30/16 12/16/17 History Ubidecarenone [Co Q-10] 100 mg PO DAILY 10/30/16 12/16/17 History Metoprolol Succinate (ER) [Toprol 50 mg PO QAM 11/23/16 12/16/17 History XL] ALPRAZolam [Xanax] 0.25 mg PO BID PRN 06/20/17 12/16/17 History Albuterol Inhaler [Ventolin Hfa 1 - 2 puff INHALATION RT-Q6H PRN 06/20/17 History Inhaler] Tolterodine ER [Detrol LA] 2 mg PO DAILY 06/20/17 12/16/17 History oxyCODONE-APAP 5-325MG [Percocet 1 tab PO BID PRN 06/20/17 12/16/17 History 5-325 mg] Calcium Carb-Vit D 250Mg-125Un 1 tab PO DAILY 08/03/17 12/16/17 History [Oscal 250+D] Allergies Allergy/AdvReac Type Severity Reaction Status Date / Time aspirin Allergy Anaphylaxis Verified 12/16/17 22:39 caffeine Allergy CREATES Verified 12/16/17 22:39 TOO MUCH STOMACH ACID celecoxib [From Celebrex] Allergy Rash/Hives Verified 12/16/17 22:39 codeine Allergy Anaphylaxis Verified 12/16/17 22:39 doxycycline Allergy Unknown Verified 12/16/17 22:39 hydrocodone bitartrate Allergy Unknown Verified 12/16/17 22:39 [From Tabor] milk Allergy Rash/Hives Verified 12/16/17 22:39 Penicillins Allergy Rash/Hives Verified 12/16/17 22:39 rofecoxib [From Vioxx] Allergy Rash/Hives Verified 12/16/17 22:39 clarithromycin [From Biaxin] AdvReac Nausea Verified 12/16/17 22:39 clindamycin AdvReac Nausea Verified 12/16/17 22:39 levofloxacin [From Levaquin] AdvReac Nausea Verified 12/16/17 22:39 Morpholine Analogues AdvReac Confusion Verified 12/16/17 22:39 ranitidine HCl [From Zantac] AdvReac Rash/Hives Verified 12/16/17 22:39 Physical Examination 82 year old female in no acute distress alert and orientated x 3. Evaluation of head and neck reveals no deformities. She is able to rotate her head and neck without much difficulty. Right hip tender to touch and pain with internal/external rotation. She is unable to elevate her legs unassisted. She has full foot and ankle motion bilaterally. Full neurovascular status intact. Results pelvis xrays reveal presence of an IT-nail on the right hip in satisfactory position. Superior rami fracture with possible nondisplaced inferior rami fracture on the right. - Labs Labs: Abnormal Lab Results - Last 24 Hours (Table) 12/16/17 12/16/17 12/16/17 Range/Units 22:15 22:15 22:15 WBC 12.0 H (3.8-10.6) k/uL RBC 3.39 L (3.80-5.40) m/uL Hgb 10.5 L (11.4-16.0) gm/dL Hct 32.6 L (34.0-46.0) % Plt Count 136 L (150-450) k/uL Neutrophils # 9.9 H (1.3-7.7) k/uL BUN 36 H (7-17) mg/dL Glucose 134 H (74-99) mg/dL Total Creatine Kinase 22 L (30-135) U/L Albumin 3.4 L (3.5-5.0) g/dL Ur Leukocyte Esterase (Negative) Urine WBC (0-5) /hpf Urine Mucus (None) /hpf 12/16/17 Range/Units 23:30 WBC (3.8-10.6) k/uL RBC (3.80-5.40) m/uL Hgb (11.4-16.0) gm/dL Hct (34.0-46.0) % Plt Count (150-450) k/uL Neutrophils # (1.3-7.7) k/uL BUN (7-17) mg/dL Glucose (74-99) mg/dL Total Creatine Kinase (30-135) U/L Albumin (3.5-5.0) g/dL Ur Leukocyte Esterase Large H (Negative) Urine WBC 34 H (0-5) /hpf Urine Mucus Rare H (None) /hpf H & H 12/16/17 Range/Units 22:15 Hgb 10.5 L (11.4-16.0) gm/dL Hct 32.6 L (34.0-46.0) % Coagulation 12/16/17 Range/Units 22:15 INR 1.1 (<1.2) Result Diagrams: 12/16/17 22:15 12/16/17 22:15 Assessment and Plan (1) Fracture of right inferior pubic ramus Current Visit: Yes Status: Acute Code(s): S32.591A - OTH FRACTURE OF RIGHT PUBIS, INIT ENCNTR FOR CLOSED FRACTURE SNOMED Code(s): 204204941 (2) Fracture of superior ramus of pubis Current Visit: Yes Status: Acute Code(s): S32.519A - FRACTURE OF SUPERIOR RIM OF UNSP PUBIS, INIT FOR CLOS FX SNOMED Code(s): 821593222 (3) Fracture of pubic ramus Current Visit: Yes Status: Acute Code(s): S32.599A - OTH FRACTURE OF UNSP PUBIS, INIT ENCNTR FOR CLOSED FRACTURE SNOMED Code(s): 64679622 Plan: The clinical and xray findings were discussed with the patient. Recommended that patient be evaluated by physical therapy to determine discharge plan which is inpatient rehabilitation vs. home care.
[2017-12-17] MEDS ORDERED: NON-FORMULARY DRUG (Ubidecarenone [Co Q-10] 100 MG) PO SCH (09:00)
[2017-12-17] MEDS ORDERED: FAMOTIDINE 20 MG TAB PO SCH (09:00)
[2017-12-17] MEDS ORDERED: ACIDOPH PO SCH (09:00)
[2017-12-17] MEDS ORDERED: [UNRECOGNIZED DRUG - OTHER] PO SCH (09:00)
[2017-12-17] MEDS ORDERED: CHOLECALCIFEROL 1,000 UNIT TAB PO SCH (09:00)
[2017-12-17] MEDS ORDERED: NON-FORMULARY DRUG (Vit C/E/Zn/Coppr/Lutein/Zeaxan [Preservision Areds 2 Softgel] 1 CAP) PO SCH (09:00)
--- NOTE | 2017-12-17 12:15 | P.CONS ---
History of Present Illness - Reason for Consult Consult date: 12/17/17 - Chief Complaint status post fall, pubic rami fracture weakness dysuria - History of Present Illness This is a 82-year-old female patient of Dr. Garcia's with past medical history of asthma, CAD with ischemic cardiomyopathy, previous history of lung cancer post resection who is known to have severe lower back pain. Patient had back surgery in May [address] Simmons, Klebsiella pneumoniae ESBL urinary tract infection CAD, asthma, memory impairment, rectal cancer requiring colostomy bag. She was seen by Dr. Garcia few weeks ago without any medication changes, and comes in to the emergency room with pubic rami fracture after a fall at home. Along these Now with weakness, difficulty in ambulating, dizziness, dysuria and chills and increasing confusion as noted by the . Patient fell at home, she was walking with her walker, and tried reaching out for something, and she turned lost her footing and fell down and hit the couch on the way down, sustaining a fall patient denies any loss of consciousness, patient lives with her In the emergency room, x-rays were done showing acute fracture of the right superior inferior pubic rami, with an old intramedullary jordana in the intra- trochanteric area. There is bone osteopenia, EKG shows normal sinus rhythm with old inferior RI. Labs shows WBC count of 12.0, hemoglobin of 10.5 which is chronic, creatinine of 1.04 with baseline 0.77, BUN elevated at 36. Troponin at 0.02 albumin though at 3.4 urinalysis shows WBC of 34 patient also will be receiving IV antibiotics for urinary tract infection with symptoms Review of Systems Constitutional: Reports as per HPI, Reports anorexia, Reports chills, Reports chronic pain, Reports fatigue, Reports malaise, Reports weight loss, Denies chronic headaches, Denies daytime sleepiness, Denies fever, Denies lethargy, Denies night sweats, Denies poor appetite, Denies sweats, Denies weakness, Denies weight gain Ears, nose, mouth and throat: Reports as per HPI, Denies ant. neck pain, Denies bleeding gums, Denies dental pain, Denies dysphagia, Denies epistaxis, Denies headache, Denies hoarseness, Denies mouth pain, Denies nasal congestion, Denies nasal discharge, Denies neck fullness/pressure, Denies neck lump, Denies nose pain, Denies odynophagia, Denies post-nasal drip, Denies sinus pain, Denies sinus pressure, Denies swelling in mouth, Denies swelling in throat, Denies sore throat, Denies vertigo, Denies voice changes Cardiovascular: Reports as per HPI, Denies chest pain, Denies claudication, Denies decreased exercise tolerance, Denies dyspnea on exertion, Denies edema, Denies high blood pressure, Denies irregular heart beat, Denies leg edema, Denies lightheadedness, Denies orthopnea, Denies palpitations, Denies paroxysmal nocturnal dyspnea, Denies phlebitis, Denies rapid heart beat, Denies shortness of breath, Denies syncope Respiratory: Reports as per HPI, Denies congestion, Denies cough, Denies cough with sputum, Denies dyspnea, Denies excessive sputum, Denies hemoptysis, Denies home oxygen, Denies pain, Denies pain on inspiration, Denies pleurisy, Denies respiratory infections, Denies sleep apnea, Denies snoring, Denies wheezing Gastrointestinal: Reports as per HPI, Denies abdominal pain, Denies belching, Denies bloating, Denies BRBPR, Denies change in bowel habits, Denies coffee ground emesis, Denies constipation, Denies diarrhea, Denies dyspepsia, Denies early satiety, Denies excessive gas, Denies heartburn, Denies hematemesis, Denies hematochezia, Denies indigestion, Denies jaundice, Denies lactose intolerance, Denies loss of appetite, Denies melena, Denies nausea, Denies vomiting Genitourinary: Reports as per HPI, Reports dysuria, Reports urgency, Denies abnormal vaginal bleeding, Denies decreased libido, Denies difficulty conceiving , Denies difficulty voiding, Denies dysmenorrhea, Denies dyspareunia, Denies flank pain, Denies genital sores, Denies hematuria, Denies hot flashes, Denies incomplete emptying, Denies kidney stones, Denies menorrhagia, Denies mixed incontinence, Denies nocturia, Denies pelvic pain, Denies post void dribbling, Denies , Denies prolapse symptoms, Denies stress incontinence, Denies urge incontinence, Denies urinary frequency, Denies vaginal discharge, Denies vaginal dryness, Denies vaginal itching, Denies vaginal odor Menstruation: Reports as per HPI, Reports postmenopausal Musculoskeletal: Reports as per HPI, Reports limitation of motion, Reports muscle weakness Integumentary: Reports as per HPI, Denies acne, Denies boils, Denies brittle nails, Denies change in hair/nails, Denies color changes, Denies darkening of skin, Denies depigmentation, Denies dryness, Denies foot/leg ulcers, Denies growths, Denies hirsutism, Denies lesions, Denies onychomycosis, Denies pruritus , Denies rash, Denies sores, Denies striae, Denies unusual bruising, Denies wounds Neurological: Reports as per HPI, Denies aphasia, Denies ataxia, Denies balance difficulties, Denies burning pain, Denies change in mentation, Denies change in smell/taste, Denies change in speech, Denies confusion, Denies convulsions, Denies double vision, Denies gait dysfunction, Denies head injury, Denies headaches, Denies hearing difficulties, Denies lack of coordination, Denies loss of vision, Denies memory loss, Denies migraines, Denies motor disturbance, Denies numbness, Denies paralysis, Denies paresthesias, Denies seizures, Denies sensory deficit, Denies spasticity, Denies syncope, Denies tic, Denies tingling , Denies transient paralysis, Denies tremors, Denies vertigo, Denies weakness, Denies visual changes Past Medical History Past Medical History: Asthma, Coronary Artery Disease (CAD), Cancer, GI Bleed, Hypertension, Memory Impairment, Musculoskeletal Disorder, Osteoarthritis (OA), Sleep Apnea/CPAP/BIPAP Additional Past Medical History / Comment(s): Sjogren syndrome, RECTAL CANCER WITH COLOSTOMY , anemia, OVER ACTIVE BLADDER, hx. L4 fracture, BRONCH WASHING WAS POSITIVE FOR KLEBSIELLA PNUEMONAE., BACK PAIN. FREQUENT FALLS. History of Any Multi-Drug Resistant Organisms: ESBL Year Discovered:: 08/26/17 ESBL Klebsiella MDRO Source:: Urine Past Surgical History: Adenoidectomy, Appendectomy, Back Surgery, Bowel Resection, Breast Surgery, Heart Catheterization, Hysterectomy, Tonsillectomy, Uterine Ablation Additional Past Surgical History / Comment(s): PERMANENT COLOSTOMY. throat surgery removed uvula,L3-L4 two fractured vertebrae, sofi cataracts, kyphoplasty L4, PICCLINE IN MAY FOR ABX(PNE) SINCE REMOVED. PICC LINE PLACEMENT, COLONOSCOPY, EGD, UTI 08/2017 Past Anesthesia/Blood Transfusion Reactions: No Reported Reaction Additional Past Anesthesia/Blood Transfusion Reaction / Comm: HX OF BLOOD TRANSFUSION Past Psychological History: No Psychological Hx Reported Additional Psychological History / Comment(s): cared for in the family home by the and children. Retired. No experience. No international travel. No tobacco or alcohol use. No animal exposures Smoking Status: Never smoker Past Alcohol Use History: None Reported Past Drug Use History: None Reported - Past Family History Mother History Unknown: Yes Family Medical History: Dialysis, Renal Disease Brother(s) History Unknown: Yes Family Medical History: No Reported History Sister(s) History Unknown: Yes Family Medical History: No Reported History Additional Family Medical History / Comment(s): Parkinsons Father Family Medical History: Cancer, CVA/TIA Additional Family Medical History / Comment(s): 3 out of 4 siblings dx. autoimmune disease Medications and Allergies Home Medications Medication Instructions Recorded Confirmed Type Isosorbide Mononitrate [Imdur] 60 mg PO QAM 07/29/13 12/16/17 History Pilocarpine HCl [Salagen] 7.5 mg PO BID 07/29/13 12/16/17 History L.acidoph/B.long/L.plant/B.lac 1 cap PO DAILY 05/09/14 12/16/17 History [Probiotic Acidophilus Beads] Multivitamins, Thera [Multivitamin 1 tab PO DAILY 03/01/15 12/16/17 History (formulary)] Vit C/E/Zn/Coppr/Lutein/Zeaxan 1 cap PO DAILY 03/14/15 12/16/17 History [Preservision Areds 2 Softgel] Escitalopram [Lexapro] 10 mg PO QAM 08/29/15 12/16/17 History OLANZapine [ZyPREXA] 10 mg PO PC-SUPPER 08/29/15 12/16/17 History Ascorbic Acid [Vitamin C] 500 mg PO DAILY 10/30/16 12/16/17 History Cholecalciferol [Vitamin D3] 1,000 unit PO DAILY 10/30/16 12/16/17 History Lansoprazole [Prevacid] 15 mg PO QAM 10/30/16 12/16/17 History Lisinopril 40 mg PO BID 10/30/16 12/16/17 History Ubidecarenone [Co Q-10] 100 mg PO DAILY 10/30/16 12/16/17 History Metoprolol Succinate (ER) [Toprol 50 mg PO QAM 11/23/16 12/16/17 History XL] Albuterol Inhaler [Ventolin Hfa 1 - 2 puff INHALATION RT-Q6H PRN 06/20/17 History Inhaler] Calcium Carb-Vit D 250Mg-125Un 1 tab PO DAILY 08/03/17 12/16/17 History [Oscal 250+D] ALPRAZolam [Xanax] 0.25 mg PO BID PRN #6 tablet 12/18/17 Rx Cephalexin [Keflex] 500 mg PO Q8HR #21 cap 12/18/17 Rx oxyCODONE-APAP 5-325MG [Percocet 1 tab PO BID PRN #6 tab 12/18/17 Rx 5-325 mg] Allergies Allergy/AdvReac Type Severity Reaction Status Date / Time aspirin Allergy Anaphylaxis Verified 12/16/17 22:39 caffeine Allergy CREATES Verified 12/16/17 22:39 TOO MUCH STOMACH ACID celecoxib [From Celebrex] Allergy Rash/Hives Verified 12/16/17 22:39 codeine Allergy Anaphylaxis Verified 12/16/17 22:39 doxycycline Allergy Unknown Verified 12/16/17 22:39 hydrocodone bitartrate Allergy Unknown Verified 12/16/17 22:39 [From [place]] milk Allergy Rash/Hives Verified 12/16/17 22:39 Penicillins Allergy Rash/Hives Verified 12/16/17 22:39 rofecoxib [From Vioxx] Allergy Rash/Hives Verified 12/16/17 22:39 clarithromycin [From Biaxin] AdvReac Nausea Verified 12/16/17 22:39 clindamycin AdvReac Nausea Verified 12/16/17 22:39 levofloxacin [From Levaquin] AdvReac Nausea Verified 12/16/17 22:39 Morpholine Analogues AdvReac Confusion Verified 12/16/17 22:39 ranitidine HCl [From Zantac] AdvReac Rash/Hives Verified 12/16/17 22:39 Physical Exam Vitals: Vital Signs Temp Pulse Pulse Resp BP BP Pulse Ox 12/17/17 07:00 98.4 F 67 94 14 111/69 99 12/17/17 06:50 66 12/17/17 00:40 97.1 F L 103 H 16 121/59 95 12/17/17 00:38 98.2 F 98 18 118/51 98 12/16/17 23:01 96 18 126/60 96 12/16/17 21:58 98.4 F 99 20 140/66 96 Intake and Output 12/16/17 12/17/17 12/17/17 22:59 06:59 14:59 Intake Total 680 Output Total 200 Balance 480 Intake: Intake, IV Titration 480 Amount Sodium Chloride 0.9% 1, 480 000 ml @ 80 mls/hr IV . [id number] [facility] Rx#:[id number] Other 200 Output: Urine 200 Uretheral (Baez) 200 Other: Voiding Method Indwelling Catheter Indwelling Catheter Weight 50.349 kg 50.349 kg - Constitutional General appearance: average body habitus, cooperative, no disheveled, no mild distress, no morbidly obese, no acute distress, no obese, no severe distress, no thin - EENT Eyes: no abnormal pupil, anicteric sclerae, no disc margins sharp, no edentulous , EOMI, PERRLA, no photophobia, dentition normal, no poor dentition, no ptosis, no scleral icterus, normal appearance ENT: hard of hearing, NA/AT, normal oropharynx - Neck Neck: normal ROM Carotids: negative: bruit absent Thyroid: bilateral: normal size, negative: enlarged, firm - Respiratory Respiratory: bilateral: CTA, negative: diminished, dullness, rales - Gastrointestinal Parastomal hernia, no output colostomy bag General gastrointestinal: no absent bowel sounds, decreased bowel sounds, no distended, no hepatomegaly, no hyperactive bowel sounds, no normal bowel sounds , no organomegaly, no rigid, no scaphoid, soft, no splenomegaly, no tenderness, no umbilical hernia, no ventral hernia - Integumentary Integumentary: no calor, no cellulitis, no cyanotic, decreased turgor, no flushed, no jaundiced, normal, no normal turgor, no pale, no rash, no ulcer - Neurologic Neurologic: CNII-XII intact - Musculoskeletal swelling pubic sligh bruise right hip, no open sores Musculoskeletal: generalized weakness, strength equal bilaterally - Psychiatric Psychiatric: A&O x's 3, appropriate affect, intact judgment & insight Results CBC & Chem 7: 12/16/17 22:15 12/16/17 22:15 Labs: Abnormal Lab Results - Last 24 Hours (Table) 12/16/17 12/16/17 12/16/17 Range/Units 22:15 22:15 22:15 WBC 12.0 H (3.8-10.6) k/uL RBC 3.39 L (3.80-5.40) m/uL Hgb 10.5 L (11.4-16.0) gm/dL Hct 32.6 L (34.0-46.0) % Plt Count 136 L (150-450) k/uL Neutrophils # 9.9 H (1.3-7.7) k/uL BUN 36 H (7-17) mg/dL Glucose 134 H (74-99) mg/dL Total Creatine Kinase 22 L (30-135) U/L Albumin 3.4 L (3.5-5.0) g/dL Ur Leukocyte Esterase (Negative) Urine WBC (0-5) /hpf Urine Mucus (None) /hpf 12/16/17 Range/Units 23:30 WBC (3.8-10.6) k/uL RBC (3.80-5.40) m/uL Hgb (11.4-16.0) gm/dL Hct (34.0-46.0) % Plt Count (150-450) k/uL Neutrophils # (1.3-7.7) k/uL BUN (7-17) mg/dL Glucose (74-99) mg/dL Total Creatine Kinase (30-135) U/L Albumin (3.5-5.0) g/dL Ur Leukocyte Esterase Large H (Negative) Urine WBC 34 H (0-5) /hpf Urine Mucus Rare H (None) /hpf Microbiology - Last 24 Hours (Table) 12/17/17 01:40 Urine Culture - Preliminary Urine,Catheterized Laboratory Results WBC 12.0 k/uL (3.8-10.6) H 12/16/17 22:15 RBC 3.39 m/uL (3.80-5.40) L 12/16/17 22:15 Hgb 10.5 gm/dL (11.4-16.0) L 12/16/17 22:15 Hct 32.6 % (34.0-46.0) L 12/16/17 22:15 MCV 96.0 fL (80.0-100.0) 12/16/17 22:15 MCH 30.9 pg (25.0-35.0) 12/16/17 22:15 MCHC 32.2 g/dL (31.0-37.0) 12/16/17 22:15 RDW 12.9 % (11.5-15.5) 12/16/17 22:15 Plt Count 136 k/uL (150-450) L 12/16/17 22:15 Neutrophils % 83 % 12/16/17 22:15 Lymphocytes % 11 % 12/16/17 22:15 Monocytes % 4 % 12/16/17 22:15 Eosinophils % 1 % 12/16/17 22:15 Basophils % 0 % 12/16/17 22:15 Neutrophils # 9.9 k/uL (1.3-7.7) H 12/16/17 22:15 Lymphocytes # 1.3 k/uL (1.0-4.8) 12/16/17 22:15 Monocytes # 0.5 k/uL (0-1.0) 12/16/17 22:15 Eosinophils # 0.2 k/uL (0-0.7) 12/16/17 22:15 Basophils # 0.0 k/uL (0-0.2) 12/16/17 22:15 PT 10.4 sec (9.0-12.0) 12/16/17 22:15 INR 1.1 (<1.2) 12/16/17 22:15 APTT 23.1 sec (22.0-30.0) 12/16/17 22:15 Sodium 138 mmol/L (137-145) 12/16/17 22:15 Potassium 4.2 mmol/L (3.5-5.1) 12/16/17 22:15 Chloride 107 mmol/L (98-107) 12/16/17 22:15 Carbon Dioxide 23 mmol/L (22-30) 12/16/17 22:15 Anion Gap 8 mmol/L 12/16/17 22:15 BUN 36 mg/dL (7-17) H 12/16/17 22:15 Creatinine 1.04 mg/dL (0.52-1.04) 12/16/17 22:15 Est GFR (CKD-EPI)AfAm 58 (>60 ml/min/1.73 sqM) 12/16/17 22:15 Est GFR (CKD-EPI)NonAf 50 (>60 ml/min/1.73 sqM) 12/16/17 22:15 Glucose 134 mg/dL (74-99) H 12/16/17 22:15 Calcium 8.6 mg/dL (8.4-10.2) 12/16/17 22:15 Total Bilirubin 0.3 mg/dL (0.2-1.3) 12/16/17 22:15 AST 35 U/L (14-36) 12/16/17 22:15 ALT 22 U/L (9-52) 12/16/17 22:15 Alkaline Phosphatase 50 U/L (38-126) 12/16/17 22:15 Total Creatine Kinase 22 U/L (30-135) L 12/16/17 22:15 CK-MB (CK-2) 1.2 ng/mL (0.0-2.4) 12/16/17 22:15 CK-MB (CK-2) Rel Index 5.5 12/16/17 22:15 Troponin I <0.012 ng/mL (0.000-0.034) 12/16/17 22:15 Total Protein 6.3 g/dL (6.3-8.2) 12/16/17 22:15 Albumin 3.4 g/dL (3.5-5.0) L 12/16/17 22:15 Urine Color Yellow 12/16/17 23:30 Urine Appearance Clear (Clear) 12/16/17 23:30 Urine pH 6.0 (5.0-8.0) 12/16/17 23:30 Ur Specific [place] 1.012 (1.001-1.035) 12/16/17 23:30 Urine Protein Negative (Negative) 12/16/17 23:30 Urine Glucose (UA) Negative (Negative) 12/16/17 23:30 Urine Ketones Negative (Negative) 12/16/17 23:30 Urine Blood Negative (Negative) 12/16/17 23:30 Urine Nitrite Negative (Negative) 12/16/17 23:30 Urine Bilirubin Negative (Negative) 12/16/17 23:30 Urine Urobilinogen <2.0 mg/dL (<2.0) 12/16/17 23:30 Ur Leukocyte Esterase Large (Negative) H 12/16/17 23:30 Urine RBC 1 /hpf (0-5) 12/16/17 23:30 Urine WBC 34 /hpf (0-5) H 12/16/17 23:30 Urine Mucus Rare /hpf (None) H 12/16/17 23:30 Assessment and Plan Plan: 1. Acute right hip pubic rami fracture with an old intratrochanteric fracture requiring intramedullary jordana placement by Dr. Pond Continue current pain management. Continue PT and OT per orthopedics. Incentive spirometry to reduce incidence of atelectasis and hospital-acquired pneumonia. With her increasing debility, with restrictions to be determined by orthopedics, assisted home upon discharge physical therapy to follow 2. Acute symptomatic cystitis, with metabolic encephalopathy, patient will be started on IV Rocephin, cultures made, last ultrasound noted in October 2016 that shows no kidney stones, monitor for renal function, might need to repeat ultrasound if renal function does not improve with hydration 3. Acute renal injury with ATN suspected. secondary to dehydration underlying Chronic kidney failure CKD stage II. Avoid nephrotoxic agents, provide IV fluids and monitor kidney function. A slight creatinine 0.77 last June 2017. See above 4. CAD and severe ischemic cardiomyopathy with low ejection fraction of 50%: Patient has been on metoprolol and isosorbide. 4. Hypertension well controlled on metoprolol, lisinopril Parameters placed on medications. 5. Sjogren syndrome: Patient using Salagen and Restasis eyedrops. Continue PreserVision 6. Chronic anemia history of GI bleed without any recent bleeding. 7. Chronic pain syndrome: Patient has been on Percocet. 8. Overactive bladder: Has been on Detrol. 9. Mild memory loss: No change remain on conservative management. 10. DVT prophylaxis: Eliquis 2.5 mg twice daily. 11. GI prophylaxis. Protonix 40 mg orally once every day. 12. Chronic anemia stable, no GI losses are identified at this time 13. Chronic diastolic heart failure. At requiring any medication adjustments 14 14 history of colon cancer, colostomy bag, and there is no output visible today 927, the bike has been replaced last night, we'll going to get a flat plate abdomen, might need a surgical consultation should abdominal distention be more prominent along with increasing abdominal pain. Currently caution was taken 15. DVT prophylaxis with aspirin post discharge, heparin 500,000 units subcu every 12 hours while in the hospital 16. GI prophylaxis Pepcid 17. Multiple drug ALLERGIES noted 18. Osteoporosis with current pathological fracture, vitamin D increased to 2000 units daily not on any biphosphonate's prior to admission 19. Fall risk history of multiple falls
--- NOTE | 2017-12-17 15:41 | XR ---
EXAMINATION TYPE: XR abdomen 2V DATE OF EXAM: 12/17/2017 CLINICAL DATA: 82-year-old female no colostomy output, rule out bowel obstruction, [facility] COMPARISON: CT 11/01/2016 FINDINGS: Left decubitus view shows no evidence for free intraperitoneal air. No dilated small bowel loops. No air-fluid levels on the left decubitus view. Coils along the left lo wer quadrant from prior mesh repair. Moderate stool both in the lower midline pelvis and also in the right lower quadrant probably within the patient's parastomal hernia. Vertebroplasty changes. IT fracture fixation at the right hip. Fracture deformity involving the right superior pubic ramus not clearly seen on the patient's comparison CT. IMPRESSION: 1. Nonobstructive bowel gas pattern. No free air. 2. Moderate stool both in the lower midline pelvis and also in the right lower quadrant. The right lo wer quadrant stool may be located within the patient's known parastomal hernia. 3. Mildly displaced, acute fracture of the right superior pubic ramus..
[2017-12-17] MEDS ORDERED: OLANZapine 10 MG TAB PO SCH (18:30)
[2017-12-17 19:18] VITALS: RESP 16
[2017-12-18] MEDS: SODIUM CHLORIDE 0.9% 1,000 ML IV SCH (01:55)
[2017-12-18 09:00] VITALS: BP 181/84; PULSE 107; TEMP 98
[2017-12-18] MEDS ORDERED: CHOLECALCIFEROL 1,000 UNIT TAB PO SCH (09:00)
[2017-12-18] MEDS ORDERED: FAMOTIDINE 20 MG TAB PO SCH (09:00)
[2017-12-18] MEDS: CALCIUM CARB-VIT D 250MG-125UN 1 EACH TAB PO SCH (09:25)
[2017-12-18] MEDS: LISINOPRIL 20 MG TAB PO SCH (09:25)
[2017-12-18] MEDS: PILOCARPINE 5 MG TAB PO SCH (09:25)
[2017-12-18] MEDS: ESCITALOPRAM 10 MG TAB PO SCH (09:26)
[2017-12-18] MEDS: OXYBUTYNIN XL 5 MG TAB.ER.24 PO SCH (09:26)
[2017-12-18] MEDS: ASCORBIC ACID 500 MG TAB PO SCH (09:27)
[2017-12-18] MEDS: MULTIVITAMINS, THERA 1 EACH TAB PO SCH (09:27)
[2017-12-18] MEDS: ISOSORBIDE MONONITRATE ER 60 MG TAB.ER.24H PO SCH (09:27)
[2017-12-18] MEDS: METOPROLOL SUCCINATE (ER) 50 MG TAB.ER.24H PO SCH (09:28)
[2017-12-18] MEDS: HEPARIN SODIUM,PORCINE 5,000 UNIT/ML 1 ML VIAL SQ SCH (09:28)
--- NOTE | 2017-12-18 10:56 | P.DS ---
Providers Date of admission: 12/17/17 00:16 Expected date of discharge: 12/18/17 Attending physician: Juan Crane Consults: 12/17/17 00:17 Consult Physician Routine Consulting Provider: Shimon Garcia Consult Reason/Comments: Medical management Do you want consulting provider notified?: Yes Primary care physician: Shimon Radha - Discharge Diagnosis(es) (1) Fracture of right inferior pubic ramus Current Visit: Yes Status: Acute (2) Fracture of superior ramus of pubis Current Visit: Yes Status: Acute (3) Fracture of pubic ramus Current Visit: Yes Status: Acute (4) Chronic back pain greater than 3 months duration Current Visit: Yes Status: Acute (5) Dehydration Current Visit: Yes Status: Acute (6) Fall Current Visit: Yes Status: Acute Hospital Course: This is an 82-year-old female admitted on 12/16/2017 after falling in her home sustaining injury to her right hip. On exam and x-ray in the emergency department she is found to have a superior/inferior pubic rami fractures on the right. She has history of intertrochanteric nail to the right hip in the past for intertrochanteric fracture. She was admitted for rehab placement and pain management. The patient is transferred to [facility] for inpatient rehab. She may be weightbearing as tolerated with her walker. She is to follow-up in one month for re-x-ray and evaluation. Please see med rec for accurate list of home medications. Patient Condition at Discharge: Stable Plan - Discharge Summary New Discharge Prescriptions: No Action Isosorbide Mononitrate [Imdur] 60 mg PO QAM Pilocarpine HCl [Salagen] 7.5 mg PO BID L.acidoph/B.long/L.plant/B.lac [Probiotic Acidophilus Beads] 1 cap PO DAILY Multivitamins, Thera [Multivitamin (formulary)] 1 tab PO DAILY Vit C/E/Zn/Coppr/Lutein/Zeaxan [Preservision Areds 2 Softgel] 1 cap PO DAILY OLANZapine [ZyPREXA] 10 mg PO PC-SUPPER Escitalopram [Lexapro] 10 mg PO QAM Cholecalciferol [Vitamin D3] 1,000 unit PO DAILY Ubidecarenone [Co Q-10] 100 mg PO DAILY Ascorbic Acid [Vitamin C] 500 mg PO DAILY Lisinopril 40 mg PO BID Lansoprazole [Prevacid] 15 mg PO QAM Metoprolol Succinate (ER) [Toprol XL] 50 mg PO QAM Albuterol Inhaler [Ventolin Hfa Inhaler] 1 - 2 puff INHALATION RT-Q6H PRN PRN Reason: Shortness Of Breath ALPRAZolam [Xanax] 0.25 mg PO BID PRN PRN Reason: Anxiety Tolterodine ER [Detrol LA] 2 mg PO DAILY oxyCODONE-APAP 5-325MG [Percocet 5-325 mg] 1 tab PO BID PRN PRN Reason: Pain Calcium Carb-Vit D 250Mg-125Un [Oscal 250+D] 1 tab PO DAILY Discharge Medication List Isosorbide Mononitrate [Imdur] 60 mg PO QAM 07/29/13 [History] Pilocarpine HCl [Salagen] 7.5 mg PO BID 07/29/13 [History] L.acidoph/B.long/L.plant/B.lac [Probiotic Acidophilus Beads] 1 cap PO DAILY [History] Multivitamins, Thera [Multivitamin (formulary)] 1 tab PO DAILY 03/01/15 [History ] Vit C/E/Zn/Coppr/Lutein/Zeaxan [Preservision Areds 2 Softgel] 1 cap PO DAILY [History] Escitalopram [Lexapro] 10 mg PO QAM 08/29/15 [History] OLANZapine [ZyPREXA] 10 mg PO PC-SUPPER 08/29/15 [History] Ascorbic Acid [Vitamin C] 500 mg PO DAILY 10/30/16 [History] Cholecalciferol [Vitamin D3] 1,000 unit PO DAILY 10/30/16 [History] Lansoprazole [Prevacid] 15 mg PO QAM 10/30/16 [History] Lisinopril 40 mg PO BID 10/30/16 [History] Ubidecarenone [Co Q-10] 100 mg PO DAILY 10/30/16 [History] Metoprolol Succinate (ER) [Toprol XL] 50 mg PO QAM 11/23/16 [History] ALPRAZolam [Xanax] 0.25 mg PO BID PRN 06/20/17 [History] Albuterol Inhaler [Ventolin Hfa Inhaler] 1 - 2 puff INHALATION RT-Q6H PRN [History] Tolterodine ER [Detrol LA] 2 mg PO DAILY 06/20/17 [History] oxyCODONE-APAP 5-325MG [Percocet 5-325 mg] 1 tab PO BID PRN 06/20/17 [History] Calcium Carb-Vit D 250Mg-125Un [Oscal 250+D] 1 tab PO DAILY 08/03/17 [History] Follow up Appointment(s)/Referral(s): Shimon Garcia MD [Primary Care Provider] - 1-2 days Juan Crane MD [STAFF PHYSICIAN] - 4 Weeks Activity/Diet/Wound Care/Special Instructions: May bear weight as tolerated with walker. Discharge Disposition: TRANSFER TO SNF/ECF
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
--- NOTE | 2017-12-22 07:17 | CDI ---
Last Revision, February 2017 Documentation Clarification Form Date: 12/22/17 From: Peggy Alli Yovana Guillermo, Production Grader Hours-8:30 am & 5 pm M-F Admit Date: 12/17/2017 12:16:00 AM Patient Name: Malena Victor Visit Number: [id number] Discharge Date: 12/18/17 ATTENTION: The Clinical Documentation Specialists (CDI) and [facility] Coding Staff appreciate your assistance in clarifying documentation. Please respond to the clarification below the line at the bottom and electronically sign. The CDI & [facility] Coding staff will review the response and follow-up if needed. Please note: Queries are made part of the Legal Health Record. If you have any questions, please contact the author of this message via ITS. Juan Valentino MD Conflicting documentation has been found in the medical record. Per Dr Freedman's consult and 12/18 PN documents "osteoporosis with current pathological fracture". History/Risk Factors: S/P fall, old femoral fx, osteopenia Clinical Indicators: Fx of right inferior/superior pubic ramus Treatment: PT and rehab plans In your opinion what is the most clinically appropriate diagnosis for this patient? Traumatic fx of inferior/superior pubic ramus Osteoporotic fx of inferior/superior pubic ramus Other explanation of clinical findings Unable to determine (no explanation for clinical findings) Please continue to document in your progress notes and discharge summary in order to capture severity of illness and risk of mortality. Include clinical findings that support your diagnosis. _Dx: Osteoporosis with current superior/inferior rami fx on right MTDD
== END 2017-12-18 13:30 | DRG 542 ==
LOC: EC 21:55 → 3SUR 12-17 00:16
PROVIDERS: ADMIT Orthopaedic Surgery; ATTEND Orthopaedic Surgery
DX: M80.851A Other osteoporosis with current pathological fracture, right femur, initial encounter for fracture (principal); G93.41 Metabolic encephalopathy; I13.0 Hypertensive heart and chronic kidney disease with heart failure and stage 1 through stage 4 chronic kidney disease, or unspecified chronic kidney disease; I50.32 Chronic diastolic (congestive) heart failure; E86.0 Dehydration; M35.00 Sjogren syndrome, unspecified; I25.5 Ischemic cardiomyopathy; N30.90 Cystitis, unspecified without hematuria; D64.9 Anemia, unspecified; F06.8 Other specified mental disorders due to known physiological condition; K43.5 Parastomal hernia without obstruction or gangrene; I25.10 Atherosclerotic heart disease of native coronary artery without angina pectoris; G47.30 Sleep apnea, unspecified; I25.2 Old myocardial infarction; G89.4 Chronic pain syndrome; N18.2 Chronic kidney disease, stage 2 (mild); J45.909 Unspecified asthma, uncomplicated; N32.81 Overactive bladder; M19.91 Primary osteoarthritis, unspecified site; M85.80 Other specified disorders of bone density and structure, unspecified site; M54.2 Cervicalgia; M54.5 Low back pain; R79.89 Other specified abnormal findings of blood chemistry; R29.6 Repeated falls; Z79.899 Other long term (current) drug therapy; Z85.118 Personal history of other malignant neoplasm of bronchus and lung; Z87.311 Personal history of (healed) other pathological fracture; Z85.048 Personal history of other malignant neoplasm of rectum, rectosigmoid junction, and anus; Z93.3 Colostomy status; Z86.19 Personal history of other infectious and parasitic diseases; Z90.710 Acquired absence of both cervix and uterus; Z87.81 Personal history of (healed) traumatic fracture; Z87.440 Personal history of urinary (tract) infections; Z90.49 Acquired absence of other specified parts of digestive tract; Z98.42 Cataract extraction status, left eye; Z98.41 Cataract extraction status, right eye; Z88.6 Allergy status to analgesic agent; Z88.1 Allergy status to other antibiotic agents; Z91.011 Allergy to milk products; Z88.5 Allergy status to narcotic agent; Z88.0 Allergy status to penicillin; Z88.8 Allergy status to other drugs, medicaments and biological substances; Z91.018 Allergy to other foods; Z84.1 Family history of disorders of kidney and ureter; Z83.2 Family history of diseases of the blood and blood-forming organs and certain disorders involving the immune mechanism; Z82.3 Family history of stroke; Z82.0 Family history of epilepsy and other diseases of the nervous system; Z80.9 Family history of malignant neoplasm, unspecified; W01.0XXA Fall on same level from slipping, tripping and stumbling without subsequent striking against object, initial encounter; Y92.009 Unspecified place in unspecified non-institutional (private) residence as the place of occurrence of the external cause
CPT/HCPCS: 36415; 70450; 71045; 72125; 73502; 74019; 80053; 81001; 82550; 82553; 84484; 85025; 85610; 85730; 87077; 87086; 87186; 93005; 94640; 96361; 96374; 96375; 99285

== ENCOUNTER 2018-01-10 08:04 | Inpatient (IN) | payer MEDICARE ==
[2018-01-10] MEDS ORDERED: SODIUM CHLORIDE 0.9% 1,000 ML IV STA (08:09)
[2018-01-10] MEDS ORDERED: SODIUM CHLORIDE 0.9% 500 ML 500 ML IV STA (08:09)
--- NOTE | 2018-01-10 08:16 | ED ---
General Adult HPI - General Stated complaint: rt side hip pain Time Seen by Provider: 01/10/18 08:04 Source: patient, EMS, RN notes reviewed, old records reviewed Mode of arrival: EMS - History of Present Illness Initial comments: This is a 82-year-old female with a history of multiple medical problems including a history of right hip fracture right pubic ramus fracture who was just released from a [facility]pc 3 days ago who woke up this morning with severe pain in the left groin area. She states she was unable ambulate she felt dizzy somewhat lightheaded she's try to get up. She could not weight- bear. Per paramedics have been recent calls for lift assist at the patient's residence. The patient denies any fevers chills nausea vomiting sweats or other symptoms. - Related Data Home Medications Medication Instructions Recorded Confirmed Isosorbide Mononitrate [Imdur] 60 mg PO QAM 07/29/13 01/10/18 Pilocarpine HCl [Salagen] 7.5 mg PO BID 07/29/13 01/10/18 L.acidoph/B.long/L.plant/B.lac 1 cap PO HS 05/09/14 01/10/18 [Probiotic Acidophilus Beads] Multivitamins, Thera [Multivitamin 1 tab PO HS 03/01/15 01/10/18 (formulary)] Vit C/E/Zn/Coppr/Lutein/Zeaxan 1 cap PO HS 03/14/15 01/10/18 [Preservision Areds 2 Softgel] Escitalopram [Lexapro] 10 mg PO QAM 08/29/15 01/10/18 OLANZapine [ZyPREXA] 10 mg PO PC-SUPPER 08/29/15 01/10/18 Ascorbic Acid [Vitamin C] 500 mg PO DAILY 10/30/16 01/10/18 Cholecalciferol [Vitamin D3] 1,000 unit PO HS 10/30/16 01/10/18 Lansoprazole [Prevacid] 15 mg PO QAM 10/30/16 01/10/18 Lisinopril 40 mg PO BID 10/30/16 01/10/18 Ubidecarenone [Co Q-10] 100 mg PO HS 10/30/16 01/10/18 Metoprolol Succinate (ER) [Toprol 50 mg PO QAM 11/23/16 01/10/18 XL] Albuterol Inhaler [Ventolin Hfa 1 - 2 puff INHALATION RT-Q6H PRN 06/20/17 Inhaler] Calcium Carb-Vit D 250Mg-125Un 1 tab PO BID 08/03/17 01/10/18 [Oscal 250+D] Tolterodine ER [Detrol LA] 2 mg PO DAILY 01/10/18 01/10/18 Previous Rx's Medication Instructions Recorded ALPRAZolam [Xanax] 0.25 mg PO BID PRN #6 tablet 12/18/17 oxyCODONE-APAP 5-325MG [Percocet 1 tab PO BID PRN #6 tab 12/18/17 5-325 mg] Allergies Allergy/AdvReac Type Severity Reaction Status Date / Time aspirin Allergy Anaphylaxis Verified 01/10/18 09:28 caffeine Allergy CREATES Verified 01/10/18 09:28 TOO MUCH STOMACH ACID celecoxib [From Celebrex] Allergy Rash/Hives Verified 01/10/18 09:28 codeine Allergy Anaphylaxis Verified 01/10/18 09:28 doxycycline Allergy Unknown Verified 01/10/18 09:28 hydrocodone bitartrate Allergy Unknown Verified 01/10/18 09:28 [From Clymer] milk Allergy Rash/Hives Verified 01/10/18 09:28 Penicillins Allergy Rash/Hives Verified 01/10/18 09:28 rofecoxib [From Vioxx] Allergy Rash/Hives Verified 01/10/18 09:28 clarithromycin [From Biaxin] AdvReac Nausea Verified 01/10/18 09:28 clindamycin AdvReac Nausea Verified 01/10/18 09:28 levofloxacin [From Levaquin] AdvReac Nausea Verified 01/10/18 09:28 Morpholine Analogues AdvReac Confusion Verified 01/10/18 09:28 ranitidine HCl [From Zantac] AdvReac Rash/Hives Verified 01/10/18 09:28 Review of Systems ROS Statement: Those systems with pertinent positive or pertinent negative responses have been documented in the HPI. ROS Other: All systems not noted in ROS Statement are negative. Past Medical History Past Medical History: Asthma, Coronary Artery Disease (CAD), Cancer, GI Bleed, Hypertension, Memory Impairment, Musculoskeletal Disorder, Osteoarthritis (OA), Sleep Apnea/CPAP/BIPAP Additional Past Medical History / Comment(s): Sjogren syndrome, RECTAL CANCER WITH COLOSTOMY , anemia, OVER ACTIVE BLADDER, hx. L4 fracture, BRONCH WASHING WAS POSITIVE FOR KLEBSIELLA PNUEMONAE., BACK PAIN. FREQUENT FALLS. History of Any Multi-Drug Resistant Organisms: ESBL, MRSA Date of last positivie culture/infection: 08/26/17 ESBL Klebsiella, MRSA 12/17/17 MDRO Source:: Urine Past Surgical History: Adenoidectomy, Appendectomy, Back Surgery, Bowel Resection, Breast Surgery, Heart Catheterization, Hysterectomy, Tonsillectomy, Uterine Ablation Additional Past Surgical History / Comment(s): PERMANENT COLOSTOMY. throat surgery removed uvula,L3-L4 two fractured vertebrae, sofi cataracts, kyphoplasty L4, PICCLINE IN MAY FOR ABX(PNE) SINCE REMOVED. PICC LINE PLACEMENT, COLONOSCOPY, EGD, UTI 08/2017 Past Anesthesia/Blood Transfusion Reactions: No Reported Reaction Additional Past Anesthesia/Blood Transfusion Reaction / Comment(s): HX OF BLOOD TRANSFUSION Past Psychological History: No Psychological Hx Reported Additional Psychological History / Comment(s): cared for in the family home by the and children. Retired. No experience. No international travel. No tobacco or alcohol use. No animal exposures Smoking Status: Never smoker Past Alcohol Use History: None Reported Past Drug Use History: None Reported - Past Family History Mother History Unknown: Yes Family Medical History: Dialysis, Renal Disease Brother(s) History Unknown: Yes Family Medical History: No Reported History Sister(s) History Unknown: Yes Family Medical History: No Reported History Additional Family Medical History / Comment(s): Parkinsons Father Family Medical History: Cancer, CVA/TIA Additional Family Medical History / Comment(s): 3 out of 4 siblings dx. autoimmune disease General Exam - General Exam Comments Initial Comments: This is a well-developed asthenic appearing female who is awake alert oriented 3 General appearance: alert, in no apparent distress Head exam: Present: atraumatic, normocephalic, normal inspection Eye exam: Present: normal appearance, PERRL, EOMI. Absent: scleral icterus, conjunctival injection, periorbital swelling ENT exam: Present: mucous membranes dry Neck exam: Present: normal inspection. Absent: tenderness, meningismus, lymphadenopathy Respiratory exam: Present: normal lung sounds bilaterally. Absent: respiratory distress, wheezes, rales, rhonchi, stridor Cardiovascular Exam: Present: regular rate, normal rhythm, normal heart sounds. Absent: systolic murmur, diastolic murmur, rubs, gallop, clicks GI/Abdominal exam: Present: soft, normal bowel sounds, other (Colostomy is present and appears be functioning). Absent: distended, tenderness, guarding, rebound, rigid Extremities exam: Present: normal inspection, tenderness, normal capillary refill, other (Tenderness palpation over the left groin and some right side tenderness no step-off or crepitation no obvious shortening or rotation of lower extremities). Absent: pedal edema, joint swelling, calf tenderness Back exam: Present: normal inspection Neurological exam: Present: alert, oriented X3, CN II-XII intact Psychiatric exam: Present: normal affect, normal mood Skin exam: Present: warm, dry, intact, normal color. Absent: rash Course Vital Signs 01/10/18 01/10/18 01/10/18 08:13 08:18 09:00 Temperature 98.8 F Pulse Rate 87 96 Respiratory 18 12 Rate Blood Pressure 178/80 178/80 O2 Sat by Pulse 94 L 96 Oximetry 01/10/18 01/10/18 01/10/18 09:30 10:00 10:30 Temperature Pulse Rate 88 88 92 Respiratory 19 12 12 Rate Blood Pressure 153/77 140/79 146/74 O2 Sat by Pulse Oximetry 01/10/18 11:00 Temperature Pulse Rate 92 Respiratory 16 Rate Blood Pressure 141/75 O2 Sat by Pulse 99 Oximetry EKG Findings - EKG Results: EKG: interpreted by ERMCarla, sinus rhythm (Sinus rhythm rate of 87. Interval 170 QRS 86 QT since QTC 366/440 old inferior changes) Medical Decision Making - Medical Decision Making I did discuss findings with the patient and family members. Patient will be admitted she is unable ambulate and care for herself. He is a fall risk. She also demonstrate dehydration. - Lab Data Result diagrams: 01/10/18 08:33 01/10/18 08:33 Lab Results 01/10/18 01/10/18 01/10/18 Range/Units 08:33 08:33 08:33 WBC 5.1 (3.8-10.6) k/uL RBC 3.05 L (3.80-5.40) m/uL Hgb 9.6 L (11.4-16.0) gm/dL Hct 29.7 L (34.0-46.0) % MCV 97.3 (80.0-100.0) fL MCH 31.3 (25.0-35.0) pg MCHC 32.2 (31.0-37.0) g/dL RDW 14.3 (11.5-15.5) % Plt Count 124 L (150-450) k/uL Neutrophils % 74 % Lymphocytes % 14 % Monocytes % 6 % Eosinophils % 5 % Basophils % 0 % Neutrophils # 3.8 (1.3-7.7) k/uL Lymphocytes # 0.7 L (1.0-4.8) k/uL Monocytes # 0.3 (0-1.0) k/uL Eosinophils # 0.2 (0-0.7) k/uL Basophils # 0.0 (0-0.2) k/uL Hypochromasia Slight Sodium 138 (137-145) mmol/L Potassium 4.6 (3.5-5.1) mmol/L Chloride 108 H (98-107) mmol/L Carbon Dioxide 21 L (22-30) mmol/L Anion Gap 9 mmol/L BUN 24 H (7-17) mg/dL Creatinine 0.77 (0.52-1.04) mg/dL Est GFR (CKD-EPI)AfAm 83 (>60 ml/min/1.73 sqM) Est GFR (CKD-EPI)NonAf 72 (>60 ml/min/1.73 sqM) Glucose 91 (74-99) mg/dL Calcium 9.1 (8.4-10.2) mg/dL Magnesium 1.8 (1.6-2.3) mg/dL Total Bilirubin 0.4 (0.2-1.3) mg/dL AST 21 (14-36) U/L ALT 20 (9-52) U/L Alkaline Phosphatase 180 H (38-126) U/L Total Creatine Kinase <20 L (30-135) U/L CK-MB (CK-2) 0.8 (0.0-2.4) ng/mL CK-MB (CK-2) Rel Index Troponin I <0.012 (0.000-0.034) ng/mL Total Protein 6.1 L (6.3-8.2) g/dL Albumin 3.3 L (3.5-5.0) g/dL Lipase <10 L (23-300) U/L - Radiology Data Radiology results: report reviewed (I did review the imaging and reports are is apparently no acute findings patient does still demonstrate the pubic ramus fracture in the right.), image reviewed Disposition Clinical Impression: Dehydration, Pelvic fracture, Failure to thrive, Risk for falls Disposition: ADMITTED IP TO THIS [facility] Condition: Stable Referrals: Shimon Garcia MD [Primary Care Provider] - 1-2 days
[2018-01-10 08:51] LABS: Basophils % (A) 0 %; Eosinophils # (A) 0.2 k/uL (0-0.7); Eosinophils % (A) 5 %; HCT 29.7 % (34.0-46.0); HGB 9.6 gm/dL (11.4-16.0); Hypochromasia Slight; Lymphocytes # (A) 0.7 k/uL (1.0-4.8); Lymphocytes % (A) 14 %; MCH 31.3 pg (25.0-35.0); MCHC 32.2 g/dL (31.0-37.0); MCV 97.3 fL (80.0-100.0); Mean Platelet Volume 7.7; Monocytes # (A) 0.3 k/uL (0-1.0); Monocytes % (A) 6 %; Neutrophils # (A) 3.8 k/uL (1.3-7.7); Neutrophils % (A) 74 %; Platelet Count 124 k/uL (150-450); RBC 3.05 m/uL (3.80-5.40); RDW 14.3 % (11.5-15.5); WBC 5.1 k/uL (3.8-10.6)
--- NOTE | 2018-01-10 09:03 | XR ---
EXAMINATION TYPE: XR pelvis AP view , ONE VIEW DATE OF EXAM ORDERED: 01/10/2018 HISTORY: Pain. COMPARISON: Previous study dated 12/16/2017. FINDINGS: There has been a previous dynamic hip pinning of the right hip. There is been a previous k yphoplasty at L4. There are fractures of the superior and inferior pubic ramus on the right. These we re present previously. There is no significant callus formation. There is been a previous ventral her stacey repair. IMPRESSION: 1. FRACTURES OF THE SUPERIOR INFERIOR PUBIC RAMUS ON THE RIGHT ARE AGAIN IDENTIFIED. 2. PREVIOUS KYPHOPLASTY AT L4. 3. POSTSURGICAL CHANGE. CODE D: SUBSEQUENT ENCOUNTER FOR CLOSED FRACTURE WITH ROUTINE HEALING.
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
[2018-01-10 09:06] LABS: ALT 20 U/L (9-52); AST 21 U/L (14-36); Albumin 3.3 g/dL (3.5-5.0); Alkaline Phosphatase 180 U/L (38-126); Anion Gap 9 mmol/L; Blood Urea Nitrogen 24 mg/dL (7-17); Calcium 9.1 mg/dL (8.4-10.2); Carbon Dioxide 21 mmol/L (22-30); Chloride 108 mmol/L (98-107); Glucose 91 mg/dL (74-99); Lipase <10 U/L (23-300); Magnesium 1.8 mg/dL (1.6-2.3); Potassium 4.6 mmol/L (3.5-5.1); Sodium 138 mmol/L (137-145); Total Bilirubin 0.4 mg/dL (0.2-1.3); Total Protein 6.1 g/dL (6.3-8.2)
[2018-01-10 09:11] LABS: Creatine Kinase <20 U/L (30-135)
[2018-01-10 09:24] LABS: Creatine Kinase MB 0.8 ng/mL (0.0-2.4); Troponin I <0.012 ng/mL (0.000-0.034)
[2018-01-10] MEDS ORDERED: NALOXONE 0.4 MG/ML 1 ML VIAL IV PRN (11:50)
[2018-01-10 11:57] LABS: Appearance,Urine Clear (Clear); Bilirubin,Urine Negative (Negative); Blood,Urine Negative (Negative); Color,Urine Light Yellow; Glucose,Urine (UA) Negative (Negative); Ketones,Urine Negative (Negative); Leukocyte Esterase,Urine Negative (Negative); Nitrite,Urine Negative (Negative); PH, Urine 5.5 (5.0-8.0); Protein,Urine Negative (Negative); Specific Gravity,Urine 1.009 (1.001-1.035); Urobilinogen,Urine <2.0 mg/dL (<2.0)
[2018-01-10] MEDS ORDERED: ALPRAZolam 0.25 MG TAB PO PRN (12:02)
[2018-01-10] MEDS ORDERED: ALBUTEROL NEBULIZED 2.5 MG/3 ML INHALATION PRN (12:02)
[2018-01-10] MEDS: oxyCODONE-APAP 5-325MG 1 EACH TAB PO PRN ×2 (14:27→22:20)
[2018-01-10] MEDS: OLANZapine 10 MG TAB PO SCH (18:45)
[2018-01-10] MEDS ORDERED: NON-FORMULARY DRUG (Ubidecarenone [Co Q-10] 100 MG) PO SCH (21:00)
[2018-01-10] MEDS: CALCIUM CARB-VIT D 250MG-125UN 1 EACH TAB PO SCH (21:26)
[2018-01-10] MEDS: PILOCARPINE 5 MG TAB PO SCH (21:26)
[2018-01-10] MEDS: MULTIVITAMINS, THERA 1 EACH TAB PO SCH (21:26)
[2018-01-10] MEDS: CHOLECALCIFEROL 1,000 UNIT TAB PO SCH (21:26)
[2018-01-10] MEDS: VIT A,C & E-LUTEIN-MINERALS 1 EACH TAB PO SCH (21:26)
[2018-01-10] MEDS: LACTOBACILLUS ACIDOPH & BULGAR 1 EACH PACKET PO SCH (21:26)
[2018-01-11] MEDS: PILOCARPINE 5 MG TAB PO SCH ×2 (07:54→19:45)
[2018-01-11] MEDS: OXYBUTYNIN XL 5 MG TAB.ER.24 PO SCH (07:54)
[2018-01-11] MEDS: METOPROLOL SUCCINATE (ER) 50 MG TAB.ER.24H PO SCH (07:54)
[2018-01-11] MEDS: ISOSORBIDE MONONITRATE ER 60 MG TAB.ER.24H PO SCH (07:54)
[2018-01-11] MEDS: CALCIUM CARB-VIT D 250MG-125UN 1 EACH TAB PO SCH ×2 (07:54→19:45)
[2018-01-11] MEDS: PANTOPRAZOLE 40 MG TABLET PO SCH (07:54)
[2018-01-11] MEDS: oxyCODONE-APAP 5-325MG 1 EACH TAB PO PRN ×2 (07:58→19:45)
[2018-01-11] MEDS ORDERED: ESCITALOPRAM 10 MG TAB PO SCH (09:00)
[2018-01-11] MEDS: ASCORBIC ACID 500 MG TAB PO SCH (11:54)
[2018-01-11] MEDS ORDERED: ACETAMINOPHEN TAB 325 MG TAB PO PRN (14:20)
--- NOTE | 2018-01-11 14:39 | XR ---
EXAMINATION TYPE: XR Hip Complete LT DATE OF EXAM: 01/11/2018 CLINICAL HISTORY: pain TECHNIQUE: AP and frogleg views of the left hip are obtained. COMPARISON: None. FINDINGS: There is no acute fracture/dislocation evident. The joint space appears within normal li mits. The overlying soft tissue appears unremarkable. IMPRESSION: 1. There is no acute fracture or dislocation.ICD 10 NO FRACTURE, INITIAL EVALUATION
--- NOTE | 2018-01-11 15:16 | P.CNOR ---
History of Present Illness - HPI Consult date: 01/11/18 Consult reason: joint pain (Left knee and lower leg pain) History of present illness: This is an 82-year-old female admitted to [facility] with complaint of left lower leg pain. She has recent history of fall, sustaining injury to her pelvis. She has right superior/inferior pubic rami fractures. She has a fairly recent right hip fracture with subsequent fixation. She states that she was unable to get up out of the bed due to left leg pain. She denies recent injury to the left leg. We're consulted for orthopedic evaluation. Past Medical History Past Medical History: Asthma, Coronary Artery Disease (CAD), Cancer, GI Bleed, Hypertension, Memory Impairment, Musculoskeletal Disorder, Osteoarthritis (OA), Sleep Apnea/CPAP/BIPAP Additional Past Medical History / Comment(s): Sjogren syndrome, RECTAL CANCER WITH COLOSTOMY , anemia, OVER ACTIVE BLADDER, hx. L4 fracture, BRONCH WASHING WAS POSITIVE FOR KLEBSIELLA PNUEMONAE., BACK PAIN. FREQUENT FALLS. History of Any Multi-Drug Resistant Organisms: ESBL, MRSA Year Discovered:: 08/26/17 ESBL Klebsiella, MRSA 12/17/17 MDRO Source:: Urine Past Surgical History: Adenoidectomy, Appendectomy, Back Surgery, Bowel Resection, Breast Surgery, Heart Catheterization, Hysterectomy, Tonsillectomy, Uterine Ablation Additional Past Surgical History / Comment(s): PERMANENT COLOSTOMY. throat surgery removed uvula,L3-L4 two fractured vertebrae, sofi cataracts, kyphoplasty L4, PICCLINE IN MAY FOR ABX(PNE) SINCE REMOVED. PICC LINE PLACEMENT, COLONOSCOPY, EGD, UTI 08/2017 Past Anesthesia/Blood Transfusion Reactions: No Reported Reaction Additional Past Anesthesia/Blood Transfusion Reaction / Comm: HX OF BLOOD TRANSFUSION Past Psychological History: No Psychological Hx Reported Additional Psychological History / Comment(s): cared for in the family home by the and children. Retired. No experience. No international travel. No tobacco or alcohol use. No animal exposures Smoking Status: Never smoker Past Alcohol Use History: None Reported Past Drug Use History: None Reported - Past Family History Mother History Unknown: Yes Family Medical History: Dialysis, Renal Disease Brother(s) History Unknown: Yes Family Medical History: No Reported History Sister(s) History Unknown: Yes Family Medical History: No Reported History Additional Family Medical History / Comment(s): Parkinsons Father Family Medical History: Cancer, CVA/TIA Additional Family Medical History / Comment(s): 3 out of 4 siblings dx. autoimmune disease Medications and Allergies Home Medications Medication Instructions Recorded Confirmed Type Isosorbide Mononitrate [Imdur] 60 mg PO QAM 07/29/13 01/10/18 History Pilocarpine HCl [Salagen] 7.5 mg PO BID 07/29/13 01/10/18 History L.acidoph/B.long/L.plant/B.lac 1 cap PO HS 05/09/14 01/10/18 History [Probiotic Acidophilus Beads] Multivitamins, Thera [Multivitamin 1 tab PO HS 03/01/15 01/10/18 History (formulary)] Vit C/E/Zn/Coppr/Lutein/Zeaxan 1 cap PO HS 03/14/15 01/10/18 History [Preservision Areds 2 Softgel] Escitalopram [Lexapro] 10 mg PO QAM 08/29/15 01/10/18 History OLANZapine [ZyPREXA] 10 mg PO PC-SUPPER 08/29/15 01/10/18 History Ascorbic Acid [Vitamin C] 500 mg PO DAILY 10/30/16 01/10/18 History Cholecalciferol [Vitamin D3] 1,000 unit PO HS 10/30/16 01/10/18 History Lansoprazole [Prevacid] 15 mg PO QAM 10/30/16 01/10/18 History Lisinopril 40 mg PO BID 10/30/16 01/10/18 History Ubidecarenone [Co Q-10] 100 mg PO HS 10/30/16 01/10/18 History Metoprolol Succinate (ER) [Toprol 50 mg PO QAM 11/23/16 01/10/18 History XL] Albuterol Inhaler [Ventolin Hfa 1 - 2 puff INHALATION RT-Q6H PRN 06/20/17 History Inhaler] Calcium Carb-Vit D 250Mg-125Un 1 tab PO BID 08/03/17 01/10/18 History [Oscal 250+D] ALPRAZolam [Xanax] 0.25 mg PO BID PRN #6 tablet 12/18/17 01/10/18 Rx oxyCODONE-APAP 5-325MG [Percocet 1 tab PO BID PRN #6 tab 12/18/17 01/10/18 Rx 5-325 mg] Tolterodine ER [Detrol LA] 2 mg PO DAILY 01/10/18 01/10/18 History Allergies Allergy/AdvReac Type Severity Reaction Status Date / Time aspirin Allergy Anaphylaxis Verified 01/10/18 09:28 caffeine Allergy CREATES Verified 01/10/18 09:28 TOO MUCH STOMACH ACID celecoxib [From Celebrex] Allergy Rash/Hives Verified 01/10/18 09:28 codeine Allergy Anaphylaxis Verified 01/10/18 09:28 doxycycline Allergy Unknown Verified 01/10/18 09:28 hydrocodone bitartrate Allergy Unknown Verified 01/10/18 09:28 [From [place]] milk Allergy Rash/Hives Verified 01/10/18 09:28 Penicillins Allergy Rash/Hives Verified 01/10/18 09:28 rofecoxib [From Vioxx] Allergy Rash/Hives Verified 01/10/18 09:28 clarithromycin [From Biaxin] AdvReac Nausea Verified 01/10/18 09:28 clindamycin AdvReac Nausea Verified 01/10/18 09:28 levofloxacin [From Levaquin] AdvReac Nausea Verified 01/10/18 09:28 Morpholine Analogues AdvReac Confusion Verified 01/10/18 09:28 ranitidine HCl [From Zantac] AdvReac Rash/Hives Verified 01/10/18 09:28 Physical Examination This is a pleasant 82-year-old female in no acute distress. She is alert and oriented 3. Exam of the low back reveals no obvious deformity. There is minimal pain with palpation about the lumbar spine. Exam of the right lower extremity reveals no obvious deformity. There is mild pain with internal and external rotation of the hip. She has full foot and ankle motion without difficulty or pain. Exam of the left lower extremity reveals no obvious deformity. There is pain with palpation and percussion about the lower leg. There is mild pain with range of motion of the knee. There is pain on palpation about the medial joint line. She has full foot and ankle motion without difficulty. Neurovascular status to the lower extremity is intact. Results Pelvis and right hip x-rays are reviewed. Superior/inferior pubic rami fractures identified with slight increase in displacement since previous films. IT nail in good position and alignment. - Labs Labs: H & H 01/10/18 Range/Units 08:33 Hgb 9.6 L (11.4-16.0) gm/dL Hct 29.7 L (34.0-46.0) % Result Diagrams: 01/10/18 08:33 01/10/18 08:33 Assessment and Plan (1) Pelvic fracture Current Visit: Yes Status: Acute Code(s): S32.9XXA - FRACTURE OF UNSP PARTS OF LUMBOSACRAL SPINE AND PELVIS, INIT SNOMED Code(s): 64341991 (2) Risk for falls Current Visit: Yes Status: Acute Code(s): Z91.81 - HISTORY OF FALLING SNOMED Code(s): 978245988 (3) Chronic back pain greater than 3 months duration Current Visit: No Status: Acute Code(s): M54.9 - DORSALGIA, UNSPECIFIED; G89.29 - OTHER CHRONIC PAIN SNOMED Code(s): 825641303 (4) Failure of outpatient treatment Current Visit: No Status: Acute Code(s): Z78.9 - OTHER SPECIFIED HEALTH STATUS SNOMED Code(s): 366088829 (5) Left leg pain Current Visit: Yes Status: Acute Code(s): M79.605 - PAIN IN LEFT LEG SNOMED Code(s): 666951313 Plan: The clinical and x-ray findings are discussed with the patient. We'll obtain x- rays of the left knee and lower leg. We discussed possibility of her pain coming from her low back.
--- NOTE | 2018-01-11 15:30 | XR ---
EXAMINATION TYPE: XR knee complete LT DATE OF EXAM: 01/11/2018 CLINICAL HISTORY: pain TECHNIQUE: Three views of the left knee are obtained. COMPARISON: None. FINDINGS: There is no acute fracture/dislocation. The tri-compartment joint spaces appear within no rmal limits. The overlying soft tissue appears unremarkable. IMPRESSION: There is no acute fracture or dislocation ICD 10 NO FRACTURE, INITIAL EVALUATION
--- NOTE | 2018-01-11 15:33 | XR ---
EXAMINATION TYPE: XR tibia fibula LT DATE OF EXAM: 01/11/2018 CLINICAL HISTORY: pain TECHNIQUE: AP and lateral images of the left tibia and fibula are obtained. COMPARISON: None. FINDINGS: There is no acute fracture/dislocation evident. The joint spaces appear within normal payne its. Vague nonspecific cortical medullary lucency distal one third left tibial diaphysis. The overly ing soft tissue appears unremarkable. IMPRESSION: There is no acute fracture or dislocation seen. ICD 10 NO FRACTURE, INITIAL EVALUATION
[2018-01-11] MEDS: OLANZapine 10 MG TAB PO SCH (17:34)
--- NOTE | 2018-01-11 18:10 | P.HPIM ---
History of Present Illness H&P Date: 01/11/18 Chief Complaint: Weakness and inability to ambulate This is a 82-year-old female patient of Dr. Garcia's with past medical history of asthma, CAD with ischemic cardiomyopathy, previous history of lung cancer post resection who is known to have severe lower back pain. Patient had back surgery in May [address] Simmons, Klebsiella pneumoniae ESBL urinary tract infection CAD, asthma, memory impairment, rectal cancer requiring colostomy bag. And on 12/17/2017 she sustained right superior inferior pubic rami fracture after a fall at home along with a urinary tract infection for which she was treated, and subsequently sent to subacute rehabilitation at [facility],. she was walking with her walker prior to her fall, she has also an old fracture, requiring an intramedullary jordana in the in that trochanteric area patient lives with her . She was t to be followed by home physical therapy and nurse visits at home, discharge on 4 days ago, no home therapy people showed up Patient comes into emergency room with difficulties ambulating for the past 24 hours, patient cannot get out of the chair, pain is in the left side of the hip , even though the right hip has the inferior superior pubic, fracture, she also mentions that she takes Percocet for the longest time, and did not run out of the Percocet at home. Orthopedics were consulted x-rays were obtained of the left hip patient is at risk for falls at home, she has failed subacute rehabilitation, pain is coming in from the left hip radiating down to the foot, suspicious of sciatica exacerbation. Patient comes in with hydration according to the emergency room, patient also has had weight losses, protein malnutrition , urinalysis is negative at this time. Creatinine on admission was 0.77, BUN of 24 hemoglobin of 9.6 WBC count of 5.1 X-ray findings in the emergency room shows kyphoplasty L4, fractures of the superior and inferior pubic rami on the right, which is previously seen from , kyphoplasty L4, postsurgical changes in EKG shows old inferior infarct , normal sinus rhythm urinalysis negative, x-ray knee shows no fracture left knee. Fit x-ray shows vague nonspecific cortical medullary lucency distal one third left tibial diaphysis no acute fracture Past Medical History Past Medical History: Asthma, Coronary Artery Disease (CAD), Cancer, GI Bleed, Hypertension, Memory Impairment, Musculoskeletal Disorder, Osteoarthritis (OA), Sleep Apnea/CPAP/BIPAP Additional Past Medical History / Comment(s): Sjogren syndrome, RECTAL CANCER WITH COLOSTOMY , anemia, OVER ACTIVE BLADDER, hx. L4 fracture, BRONCH WASHING WAS POSITIVE FOR KLEBSIELLA PNUEMONAE., BACK PAIN. FREQUENT FALLS. History of Any Multi-Drug Resistant Organisms: ESBL, MRSA Date of last positivie culture/infection: 08/26/17 ESBL Klebsiella, MRSA 12/17/17 MDRO Source:: Urine Past Surgical History: Adenoidectomy, Appendectomy, Back Surgery, Bowel Resection, Breast Surgery, Heart Catheterization, Hysterectomy, Tonsillectomy, Uterine Ablation Additional Past Surgical History / Comment(s): PERMANENT COLOSTOMY. throat surgery removed uvula,L3-L4 two fractured vertebrae, sofi cataracts, kyphoplasty L4, PICCLINE IN MAY FOR ABX(PNE) SINCE REMOVED. PICC LINE PLACEMENT, COLONOSCOPY, EGD, UTI 08/2017 Past Anesthesia/Blood Transfusion Reactions: No Reported Reaction Additional Past Anesthesia/Blood Transfusion Reaction / Comment(s): HX OF BLOOD TRANSFUSION Past Psychological History: No Psychological Hx Reported Additional Psychological History / Comment(s): cared for in the family home by the and children. Retired. No experience. No international travel. No tobacco or alcohol use. No animal exposures Smoking Status: Never smoker Past Alcohol Use History: None Reported Past Drug Use History: None Reported - Past Family History Mother History Unknown: Yes Family Medical History: Dialysis, Renal Disease Brother(s) History Unknown: Yes Family Medical History: No Reported History Sister(s) History Unknown: Yes Family Medical History: No Reported History Additional Family Medical History / Comment(s): Parkinsons Father Family Medical History: Cancer, CVA/TIA Additional Family Medical History / Comment(s): 3 out of 4 siblings dx. autoimmune disease Medications and Allergies Home Medications Medication Instructions Recorded Confirmed Type Isosorbide Mononitrate [Imdur] 60 mg PO QAM 07/29/13 01/10/18 History Pilocarpine HCl [Salagen] 7.5 mg PO BID 07/29/13 01/10/18 History L.acidoph/B.long/L.plant/B.lac 1 cap PO HS 05/09/14 01/10/18 History [Probiotic Acidophilus Beads] Multivitamins, Thera [Multivitamin 1 tab PO HS 03/01/15 01/10/18 History (formulary)] Vit C/E/Zn/Coppr/Lutein/Zeaxan 1 cap PO HS 03/14/15 01/10/18 History [Preservision Areds 2 Softgel] Escitalopram [Lexapro] 10 mg PO QAM 08/29/15 01/10/18 History OLANZapine [ZyPREXA] 10 mg PO PC-SUPPER 08/29/15 01/10/18 History Ascorbic Acid [Vitamin C] 500 mg PO DAILY 10/30/16 01/10/18 History Cholecalciferol [Vitamin D3] 1,000 unit PO HS 10/30/16 01/10/18 History Lansoprazole [Prevacid] 15 mg PO QAM 10/30/16 01/10/18 History Lisinopril 40 mg PO BID 10/30/16 01/10/18 History Ubidecarenone [Co Q-10] 100 mg PO HS 10/30/16 01/10/18 History Metoprolol Succinate (ER) [Toprol 50 mg PO QAM 11/23/16 01/10/18 History XL] Albuterol Inhaler [Ventolin Hfa 1 - 2 puff INHALATION RT-Q6H PRN 06/20/17 History Inhaler] Calcium Carb-Vit D 250Mg-125Un 1 tab PO BID 08/03/17 01/10/18 History [Oscal 250+D] ALPRAZolam [Xanax] 0.25 mg PO BID PRN #6 tablet 12/18/17 01/10/18 Rx oxyCODONE-APAP 5-325MG [Percocet 1 tab PO BID PRN #6 tab 12/18/17 01/10/18 Rx 5-325 mg] Tolterodine ER [Detrol LA] 2 mg PO DAILY 01/10/18 01/10/18 History Allergies Allergy/AdvReac Type Severity Reaction Status Date / Time aspirin Allergy Anaphylaxis Verified 01/10/18 09:28 caffeine Allergy CREATES Verified 01/10/18 09:28 TOO MUCH STOMACH ACID celecoxib [From Celebrex] Allergy Rash/Hives Verified 01/10/18 09:28 codeine Allergy Anaphylaxis Verified 01/10/18 09:28 doxycycline Allergy Unknown Verified 01/10/18 09:28 hydrocodone bitartrate Allergy Unknown Verified 01/10/18 09:28 [From [place]] milk Allergy Rash/Hives Verified 01/10/18 09:28 Penicillins Allergy Rash/Hives Verified 01/10/18 09:28 rofecoxib [From Vioxx] Allergy Rash/Hives Verified 01/10/18 09:28 clarithromycin [From Biaxin] AdvReac Nausea Verified 01/10/18 09:28 clindamycin AdvReac Nausea Verified 01/10/18 09:28 levofloxacin [From Levaquin] AdvReac Nausea Verified 01/10/18 09:28 Morpholine Analogues AdvReac Confusion Verified 01/10/18 09:28 ranitidine HCl [From Zantac] AdvReac Rash/Hives Verified 01/10/18 09:28 Physical Exam Vitals: Vital Signs Temp Pulse Resp BP Pulse Ox 01/11/18 06:28 98.6 F 87 18 187/79 95 01/10/18 23:00 98.3 F 82 16 144/74 95 Intake and Output 01/11/18 01/11/18 01/11/18 06:59 14:59 22:59 Intake Total 600 Output Total 850 400 Balance -850 200 Intake: Oral 600 Output: Urine 850 400 Other: Voiding Method Indwelling Catheter # Bowel Movements 1 - Constitutional General appearance: cooperative, no acute distress - EENT Eyes: anicteric sclerae, EOMI, PERRLA, dentition normal ENT: no hard of hearing, no hearing grossly normal, NA/AT, normal oropharynx, no other, no pharyngeal erythema, no thrush, no tonsillar exudates, no tonsillar swelling - Neck Neck: normal ROM - Respiratory Respiratory: bilateral: CTA, negative: diminished, dullness - Cardiovascular Rhythm: regular Heart sounds: normal: S1, S2 Abnormal Heart Sounds: no systolic murmur, no diastolic murmur, no rub, no S3 Gallop, no S4 Gallop, no click, no other - Gastrointestinal General gastrointestinal: normal bowel sounds, soft - Integumentary Integumentary: decreased turgor, normal - Neurologic Neurologic: CNII-XII intact - Musculoskeletal slowed small paced strideassisted with walker tends to tip backward when ambulating, has limp Musculoskeletal: generalized weakness, strength equal bilaterally, right sided weakness, left sided weakness - Psychiatric Psychiatric: A&O x's 3, appropriate affect Results CBC & Chem 7: 01/10/18 08:33 01/10/18 08:33 Assessment and Plan Plan: 1. Impaired mobility with difficulty in ambulating, fall risk, sciatica exacerbation, chronic pain patient was seen by physical therapy, x-rays of the left femur to be done and left hip, patient is on chronic Percocet, and has multiple drug allergies noted, patient might able to benefit from Cymbalta for chronic pain we will give the patient 3 doses of Solu-Medrol 60 mg for sciatica exacerbation, orthopedics is to see the patient, 2. Subacute right hip pubic rami fracture with an old intratrochanteric fracture requiring intramedullary jordana placement by Dr. Pond in the past Continue current pain management. Continue PT and OT With her increasing debility, with restrictions to be determined by orthopedics, group home home against home physical therapy upon discharge 3. Osteoporosis with current osteoporotic fracture right superior inferior pubic vitamin D increased to 2000 units daily not on any biphosphonate's prior to admission 4. Chronic kidney failure CKD stage II, at baseline. Avoid nephrotoxic agents , provide IV fluids and monitor kidney function. A slight creatinine 0.77 last June 2017. See above 5. CAD and severe ischemic cardiomyopathy with low ejection fraction of 50%: Patient has been on metoprolol and isosorbide. 6. Hypertension well controlled on metoprolol, lisinopril Parameters placed on medications. 7. Sjogren syndrome: Patient using Salagen and Restasis eyedrops. Continue PreserVision 8. Chronic anemia history of GI bleed without any recent bleeding. Check for iron deficiency and vitamin B12 deficiency 9. Chronic pain syndrome: Patient has been on Percocet. We will start Cymbalta 30 mg twice a day for neuralgia 10. Overactive bladder: Has been on Detrol. 11. Mild memory loss: No change remain on conservative management. 12. Chronic diastolic heart failure. not requiring any medication adjustments on lisinopril Imdur metoprolol aspirin 13. History of colon cancer, colostomy bag, stable 14. DVT prophylaxis with aspirin post discharge, heparin 500,000 units subcu every 12 hours while in the hospital 15. GI prophylaxis Pepcid 16. Multiple drug ALLERGIES noted 17. Osteoporosis with current pathological fracture, 18. Fall risk history of multiple falls 19 Dysthymia on Zyprexa and Lexapro, we will discontinue Lexapro in favor of Cymbalta for chronic pain
[2018-01-11] MEDS: VIT A,C & E-LUTEIN-MINERALS 1 EACH TAB PO SCH (19:45)
[2018-01-11] MEDS: LACTOBACILLUS ACIDOPH & BULGAR 1 EACH PACKET PO SCH (19:45)
[2018-01-11] MEDS: MULTIVITAMINS, THERA 1 EACH TAB PO SCH (19:45)
[2018-01-11] MEDS: CHOLECALCIFEROL 1,000 UNIT TAB PO SCH (19:45)
[2018-01-11] MEDS: DULoxetine HCL 30 MG CAPSULE.DR PO SCH (21:14)
[2018-01-11] MEDS: methylPREDNISolone SOD SUCCI 125 MG/2 ML VIAL IV SCH (23:45)
[2018-01-12] MEDS: METOPROLOL SUCCINATE (ER) 50 MG TAB.ER.24H PO SCH (06:30)
[2018-01-12] MEDS: oxyCODONE-APAP 5-325MG 1 EACH TAB PO PRN (06:31)
[2018-01-12] MEDS: ISOSORBIDE MONONITRATE ER 60 MG TAB.ER.24H PO SCH (07:50)
[2018-01-12] MEDS: PANTOPRAZOLE 40 MG TABLET PO SCH (07:51)
[2018-01-12] MEDS: DULoxetine HCL 30 MG CAPSULE.DR PO SCH (07:51)
[2018-01-12] MEDS: CALCIUM CARB-VIT D 250MG-125UN 1 EACH TAB PO SCH ×2 (07:51→22:07)
[2018-01-12] MEDS: methylPREDNISolone SOD SUCCI 125 MG/2 ML VIAL IV SCH ×2 (07:51→15:45)
[2018-01-12] MEDS: PILOCARPINE 5 MG TAB PO SCH ×2 (07:51→22:08)
[2018-01-12] MEDS: OXYBUTYNIN XL 5 MG TAB.ER.24 PO SCH (07:51)
--- NOTE | 2018-01-12 09:16 | CDI ---
Last Revision, February 2017 Documentation Clarification Form Date: 01/11/18 From: Marichuy Ambrosio Admit Date: 01/10/2018 11:50:00 AM Patient Name: Malena Victor Visit Number: [id number] ATTENTION: The Clinical Documentation Specialists (CDI) and [facility] Coding Staff appreciate your assistance in clarifying documentation. Please respond to the clarification below the line at the bottom and electronically sign. The CDI & [facility] Coding staff will review the response and follow-up if needed. Please note: Queries are made part of the Legal Health Record. If you have any questions, please contact the author of this message via ITS. Melany Zelaya MD, A diagnosis of anemia lacks specificity to accurately reflect your patients severity of condition and clarification is needed. Pt. admitted with dehydration, pelvic fracture, failure to thrive, risk for falls History/Risk Factors:asthma, CAD, GI bleed, HTN, OA, memory impairment, musculoskeletal disorder, apnea, sjogren syndrome, rectal cancer with colostomy, anemia, ESBL, MRSA Clinical indicators: History of Anemia is documented in the chart H&P, PN 01/11 and ED note. Hemoglobin on admission: 9.6 Hematocrit on admission: 29.7 Treatment: Monitor labs In order to capture the severity of condition, please clarify the type of anemia and etiology if known: Acute blood loss anemia Acute on chronic blood loss anemia Chronic blood loss anemia Iron deficiency anemia Drug induced anemia Anemia due to malignancy Anemia of chronic kidney disease Unable to determine Other, please specify MTDD
--- NOTE | 2018-01-12 11:09 | P.PN ---
Subjective Progress Note Date: 01/12/18 Principal diagnosis: Left lower extremity pain. History of right pelvis fracture. History of right hip fracture. This is a pleasant 82-year-old female with history of a fall a few weeks ago sustaining injury to her right hip. She was seen in the hospital with superior/ inferior. Rami fractures on the right. She has history of intertrochanteric nail of the right hip for fracture. She was in rehab for her pelvis fractures. She was doing fairly well but then began having severe left lower extremity pain which she states radiates all the way up to her buttock. X-rays were obtained of the left tib-fib and left knee which are negative for fracture. She states that her pain is slightly improved today. Objective - Vital Signs Vital signs: Vital Signs Temp 96.8 F L 01/12/18 06:19 Pulse 100 01/12/18 06:19 Resp 16 01/12/18 07:10 BP 198/96 01/12/18 06:19 Pulse Ox 97 01/12/18 06:19 Intake & Output 01/11/18 01/12/18 01/12/18 18:59 06:59 18:59 Intake Total 600 Output Total 400 Balance 200 Intake: Oral 600 Output: Urine 400 Other: Voiding Method Indwelling Catheter Diaper Diaper Incontinent Incontinent # Voids 5 # Bowel Movements 1 - Exam This is an 82-year-old female in no acute distress. She is alert and oriented 3. Her is present at bedside. Exam of the low back reveals no obvious deformity. There is mild tenderness with palpation about the low back. Exam of the lower extremities reveals no obvious deformity. Left leg pain is slightly improved today. She still has some pain with straight leg raise. She has full foot ankle motion bilaterally. Neurovascular status to the lower extremity is intact. - Labs CBC & Chem 7: 01/10/18 08:33 01/10/18 08:33 Assessment and Plan (1) Pelvic fracture Current Visit: Yes Status: Acute Code(s): S32.9XXA - FRACTURE OF UNSP PARTS OF LUMBOSACRAL SPINE AND PELVIS, INIT SNOMED Code(s): 07420366 (2) Risk for falls Current Visit: Yes Status: Acute Code(s): Z91.81 - HISTORY OF FALLING SNOMED Code(s): 759599993 (3) Chronic back pain greater than 3 months duration Current Visit: No Status: Acute Code(s): M54.9 - DORSALGIA, UNSPECIFIED; G89.29 - OTHER CHRONIC PAIN SNOMED Code(s): 798457278 (4) Failure of outpatient treatment Current Visit: No Status: Acute Code(s): Z78.9 - OTHER SPECIFIED HEALTH STATUS SNOMED Code(s): 789596431 (5) Left leg pain Current Visit: Yes Status: Acute Code(s): M79.605 - PAIN IN LEFT LEG SNOMED Code(s): 885570386 Plan: The clinical and x-ray findings are discussed with the patient. I will review the case with Dr. Galvan in our office and review her prior films of her low back. It is discussed the patient that she most likely is having radiculopathy pain to the left lower extremity. I encourage her to continue to work with physical therapy and ambulation.
[2018-01-12] MEDS: ASCORBIC ACID 500 MG TAB PO SCH (11:29)
--- NOTE | 2018-01-12 14:48 | P.PN ---
Subjective Progress Note Date: 01/12/18 This is a 82-year-old female patient of Dr. Garcia's with past medical history of asthma, CAD with ischemic cardiomyopathy, previous history of lung cancer post resection who is known to have severe lower back pain. Patient had back surgery in May [address] Simmons, Klebsiella pneumoniae ESBL urinary tract infection CAD, asthma, memory impairment, rectal cancer requiring colostomy bag. And on 12/17/2017 she sustained right superior inferior pubic rami fracture after a fall at home along with a urinary tract infection for which she was treated, and subsequently sent to subacute rehabilitation at [facility],. she was walking with her walker prior to her fall, she has also an old fracture, requiring an intramedullary jordana in the in that trochanteric area patient lives with her . She was t to be followed by home physical therapy and nurse visits at home, discharge on 4 days ago, no home therapy people showed up Patient comes into emergency room with difficulties ambulating for the past 24 hours, patient cannot get out of the chair, pain is in the left side of the hip , even though the right hip has the inferior superior pubic, fracture, she also mentions that she takes Percocet for the longest time, and did not run out of the Percocet at home. Orthopedics were consulted x-rays were obtained of the left hip patient is at risk for falls at home, she has failed subacute rehabilitation, pain is coming in from the left hip radiating down to the foot, suspicious of sciatica exacerbation. Patient comes in with hydration according to the emergency room, patient also has had weight losses, protein malnutrition , urinalysis is negative at this time. Creatinine on admission was 0.77, BUN of 24 hemoglobin of 9.6 WBC count of 5.1 X-ray findings in the emergency room shows kyphoplasty L4, fractures of the superior and inferior pubic rami on the right, which is previously seen from , kyphoplasty L4, postsurgical changes in EKG shows old inferior infarct , normal sinus rhythm urinalysis negative, x-ray knee shows no fracture left knee. Fit x-ray shows vague nonspecific cortical medullary lucency distal one third left tibial diaphysis no acute fracture 01/12: Patient has been seen by orthopedics. There is slight increase in displacement of the superior inferior pubic rami fracture. IT nail in good position and alignment. There is concern that her pain may be coming from her low back. The patient was found standing for physical therapy and is complaining of left-sided hip pain. She does have some tenderness in the left lumbar/buttocks area. Consult added for Dr. Marcelo. For left trigger ejection. Performance. Iron studies ordered. Baez catheter has been removed Social work is developing plan for [facility] for subacute rehab. Review Of Systems: Constitutional: No fever, no chills. + weakness. EENT: No headache. No epistaxis. No sore throat. Lungs: No shortness of breath, cough, no sputum production. No wheezing. Cardiovascular: No chest pain, no lower extremity edema. No palpitations. Mild lightheadedness. No syncopal episodes. Abdominal: No abdominal pain. No nausea, vomiting. No diarrhea. No constipation. No bloody or tarry stools. Genitourinary: No dysuria, increased frequency, urgency. No urinary retention. Musculoskeletal: + pain left hip. No muscle weakness, + gait dysfunction. No back pain. Integumentary: No wounds. No rash or pruritus. Neurologic: No aphasia. No facial droop. No change in mentation. Psychiatric: No depression. No anxiety. Endocrine: No abnormal blood sugars. Objective - Vital Signs Vital signs: Vital Signs Temp 96.8 F L 01/12/18 06:19 Pulse 100 01/12/18 06:19 Resp 16 01/12/18 06:19 BP 198/96 01/12/18 06:19 Pulse Ox 97 01/12/18 06:19 Intake & Output 01/11/18 01/12/18 01/12/18 18:59 06:59 18:59 Intake Total 600 Output Total 400 Balance 200 Intake: Oral 600 Output: Urine 400 Other: Voiding Method Indwelling Catheter Diaper Incontinent # Voids 5 # Bowel Movements 1 - Labs CBC & Chem 7: 01/10/18 08:33 01/10/18 08:33 Assessment and Plan Plan: 1. Impaired mobility with difficulty in ambulating, fall risk, sciatica exacerbation, chronic pain patient was seen by physical therapy, patient is on chronic Percocet, and has multiple drug allergies noted, patient might able to benefit from Cymbalta for chronic pain we will give the patient 3 doses of Solu- Medrol 40 mg for sciatica exacerbation, orthopedic consult appreciated. Consult with Dr. Waters added for left trigger injection piriformis. 2. Subacute right hip pubic rami fracture with an old intratrochanteric fracture requiring intramedullary jordana placement by Dr. Pond in the past Continue current pain management. Continue PT and OT. 3. Osteoporosis with current osteoporotic fracture right superior inferior pubic. Vitamin D increased to 2000 units daily not on any biphosphonate's prior to admission 4. Chronic kidney failure CKD stage II, at baseline with anemia of chronic disease. Avoid nephrotoxic agents, provide IV fluids and monitor kidney function. 5. CAD and severe ischemic cardiomyopathy with low ejection fraction of 50%: Patient has been on metoprolol and isosorbide. 6. Hypertension well controlled on metoprolol, lisinopril Parameters placed on medications. 7. Sjogren syndrome: Patient using Salagen and Restasis eyedrops. Continue PreserVision 8. Chronic anemia history of GI bleed without any recent bleeding. Check for iron deficiency and vitamin B12 deficiency 9. Chronic pain syndrome: Patient has been on Percocet. We will start Cymbalta 30 mg twice a day for neuralgia 10. Overactive bladder: Has been on Detrol. 11. Mild memory loss: No change remain on conservative management. 12. Chronic diastolic heart failure. not requiring any medication adjustments on lisinopril Imdur metoprolol aspirin 13. History of colon cancer, colostomy bag, stable 14. DVT prophylaxis with aspirin post discharge, heparin 500,000 units subcu every 12 hours while in the hospital 15. GI prophylaxis Pepcid 16. Multiple drug ALLERGIES noted 17. Osteoporosis with current pathological fracture, 18. Fall risk history of multiple falls 19. Dysthymia on Zyprexa and Lexapro, we will discontinue Lexapro in favor of Cymbalta for chronic pain Discharge plan: [facility] under the care of Dr. Garcia most likely on Thursday Impression and plan of care have been directed as dictated by the signing physician. Caitlin Francis nurse practitioner acting as scribe for signing physician.
[2018-01-12] MEDS: OLANZapine 10 MG TAB PO SCH (17:39)
[2018-01-12 18:59] LABS: Iron Saturation 14.29 (12.00-45.00)
[2018-01-12] MEDS: VIT A,C & E-LUTEIN-MINERALS 1 EACH TAB PO SCH (22:07)
[2018-01-12] MEDS: LACTOBACILLUS ACIDOPH & BULGAR 1 EACH PACKET PO SCH (22:08)
[2018-01-12] MEDS: CHOLECALCIFEROL 1,000 UNIT TAB PO SCH (22:08)
[2018-01-12] MEDS: MULTIVITAMINS, THERA 1 EACH TAB PO SCH (22:08)
[2018-01-13] MEDS: methylPREDNISolone SOD SUCCI 125 MG/2 ML VIAL IV SCH ×2 (00:41→08:23)
[2018-01-13] MEDS: CALCIUM CARB-VIT D 250MG-125UN 1 EACH TAB PO SCH (08:23)
[2018-01-13] MEDS: PILOCARPINE 5 MG TAB PO SCH (08:23)
--- NOTE | 2018-01-13 08:23 | P.PAINCN ---
History of Present Illness - Reason for Consult Consult date: 01/13/18 - History of Present Illness This is 82 years old female, with a history of falls happened a few weeks ago, and she had a history of right hip fracture with intertrochanteric nailing,, recently she was complaining of severe low back pain and numbness and tingling sensation in the left lower extremity patient treated as an outpatient with Percocet 5/325 twice a day and Tylenol by mouth, patient failed outpatient treatment, and she was admitted because of intractable back pain, patient not able to ambulate because of the pain, patient reported that she had chronic low back pain issue and she was diagnosed with lumbar degenerative disc disease and sacroiliitis, 3 years ago patient had lumbar epidural steroid injection and she had right sacroiliac joint steroid injection, currently patient reported that the pain radiated from the low back area towards the left lower extremity associated with numbness and tingling sensation Past Medical History Past Medical History: Asthma, Coronary Artery Disease (CAD), Cancer, GI Bleed, Hypertension, Memory Impairment, Musculoskeletal Disorder, Osteoarthritis (OA), Sleep Apnea/CPAP/BIPAP Additional Past Medical History / Comment(s): Sjogren syndrome, RECTAL CANCER WITH COLOSTOMY , anemia, OVER ACTIVE BLADDER, hx. L4 fracture, BRONCH WASHING WAS POSITIVE FOR KLEBSIELLA PNUEMONAE., BACK PAIN. FREQUENT FALLS. History of Any Multi-Drug Resistant Organisms: ESBL, MRSA Year Discovered:: 08/26/17 ESBL Klebsiella, MRSA 12/17/17 MDRO Source:: Urine Past Surgical History: Adenoidectomy, Appendectomy, Back Surgery, Bowel Resection, Breast Surgery, Heart Catheterization, Hysterectomy, Tonsillectomy, Uterine Ablation Additional Past Surgical History / Comment(s): PERMANENT COLOSTOMY. throat surgery removed uvula,L3-L4 two fractured vertebrae, sofi cataracts, kyphoplasty L4, PICCLINE IN MAY FOR ABX(PNE) SINCE REMOVED. PICC LINE PLACEMENT, COLONOSCOPY, EGD, UTI 08/2017 Past Anesthesia/Blood Transfusion Reactions: No Reported Reaction Additional Past Anesthesia/Blood Transfusion Reaction / Comm: HX OF BLOOD TRANSFUSION Past Psychological History: No Psychological Hx Reported Additional Psychological History / Comment(s): cared for in the family home by the and children. Retired. No experience. No international travel. No tobacco or alcohol use. No animal exposures Smoking Status: Never smoker Past Alcohol Use History: None Reported Past Drug Use History: None Reported - Past Family History Mother History Unknown: Yes Family Medical History: Dialysis, Renal Disease Brother(s) History Unknown: Yes Family Medical History: No Reported History Sister(s) History Unknown: Yes Family Medical History: No Reported History Additional Family Medical History / Comment(s): Parkinsons Father Family Medical History: Cancer, CVA/TIA Additional Family Medical History / Comment(s): 3 out of 4 siblings dx. autoimmune disease Medications and Allergies Home Medications Medication Instructions Recorded Confirmed Type Isosorbide Mononitrate [Imdur] 60 mg PO QAM 07/29/13 01/10/18 History Pilocarpine HCl [Salagen] 7.5 mg PO BID 07/29/13 01/10/18 History L.acidoph/B.long/L.plant/B.lac 1 cap PO HS 05/09/14 01/10/18 History [Probiotic Acidophilus Beads] Multivitamins, Thera [Multivitamin 1 tab PO HS 03/01/15 01/10/18 History (formulary)] Vit C/E/Zn/Coppr/Lutein/Zeaxan 1 cap PO HS 03/14/15 01/10/18 History [Preservision Areds 2 Softgel] Escitalopram [Lexapro] 10 mg PO QAM 08/29/15 01/10/18 History OLANZapine [ZyPREXA] 10 mg PO PC-SUPPER 08/29/15 01/10/18 History Ascorbic Acid [Vitamin C] 500 mg PO DAILY 10/30/16 01/10/18 History Cholecalciferol [Vitamin D3] 1,000 unit PO HS 10/30/16 01/10/18 History Lansoprazole [Prevacid] 15 mg PO QAM 10/30/16 01/10/18 History Lisinopril 40 mg PO BID 10/30/16 01/10/18 History Ubidecarenone [Co Q-10] 100 mg PO HS 10/30/16 01/10/18 History Metoprolol Succinate (ER) [Toprol 50 mg PO QAM 11/23/16 01/10/18 History XL] Albuterol Inhaler [Ventolin Hfa 1 - 2 puff INHALATION RT-Q6H PRN 06/20/17 History Inhaler] Calcium Carb-Vit D 250Mg-125Un 1 tab PO BID 08/03/17 01/10/18 History [Oscal 250+D] ALPRAZolam [Xanax] 0.25 mg PO BID PRN #6 tablet 12/18/17 01/10/18 Rx oxyCODONE-APAP 5-325MG [Percocet 1 tab PO BID PRN #6 tab 12/18/17 01/10/18 Rx 5-325 mg] Tolterodine ER [Detrol LA] 2 mg PO DAILY 01/10/18 01/10/18 History Allergies Allergy/AdvReac Type Severity Reaction Status Date / Time aspirin Allergy Anaphylaxis Verified 01/10/18 09:28 caffeine Allergy CREATES Verified 01/10/18 09:28 TOO MUCH STOMACH ACID celecoxib [From Celebrex] Allergy Rash/Hives Verified 01/10/18 09:28 codeine Allergy Anaphylaxis Verified 01/10/18 09:28 doxycycline Allergy Unknown Verified 01/10/18 09:28 hydrocodone bitartrate Allergy Unknown Verified 01/10/18 09:28 [From [place]] milk Allergy Rash/Hives Verified 01/10/18 09:28 Penicillins Allergy Rash/Hives Verified 01/10/18 09:28 rofecoxib [From Vioxx] Allergy Rash/Hives Verified 01/10/18 09:28 clarithromycin [From Biaxin] AdvReac Nausea Verified 01/10/18 09:28 clindamycin AdvReac Nausea Verified 01/10/18 09:28 levofloxacin [From Levaquin] AdvReac Nausea Verified 01/10/18 09:28 Morpholine Analogues AdvReac Confusion Verified 01/10/18 09:28 ranitidine HCl [From Zantac] AdvReac Rash/Hives Verified 01/10/18 09:28 Physical Exam Vitals: Vital Signs Temp Pulse Pulse Pulse Resp BP BP 01/12/18 23:00 97.1 F L 82 18 01/12/18 18:57 80 01/12/18 17:51 97.7 F 99 20 142/74 01/12/18 17:11 20 01/12/18 15:31 16 01/12/18 14:34 97.3 F L 96 20 156/77 BP Pulse Ox 01/12/18 23:00 162/72 97 01/12/18 18:57 01/12/18 17:51 01/12/18 17:11 01/12/18 15:31 01/12/18 14:34 98 Intake and Output 01/12/18 01/13/18 01/13/18 22:59 06:59 14:59 Intake Total 300 350 Balance 300 350 Intake: Oral 300 350 Other: Voiding Method Diaper # Voids 2 3 Physical Examinations : 1-Constitutiona : Cooperative , not in acute distress . 2-HEENT : nech ; supple , no Lymphadenopathy , normal thyroid size . eyes : no ptosis , no icterus, no photophobia . ENT : normal of hearing , normal oropharynx , no Thrush . 3- Respiratory : Chest clear to auscultations Bilaterally , no wheezing , no Rhonchi . 4- Cardiovascular : regular rate and rhythem , S1 , S2 , no S3 , no S4. 5- Gastrointestinal : abdomen soft no tenderness , bowel sounds , no organomegally . 6- Genitourinary : Defferred . 7- neurologic : Cranial nerve II to XII intact , no focal neurological deffecit . 8-psychatric : alert , oriented X 3 , appropriate affect , intact judgment and insight . 9-Lymphatic : no Lymphadenopathy . 10- musculoskeltal : Lumber spine moter stegnth lower extremities , thigh and legs 4/5 Right side , 4/5 Left side deep tendon reflexes : normal Knee Jerk , normal ankle Jerk positive lumber facet Loading Test Range of motion of the lumbar spine Flexion 30 degrees, extension 10 degrees strait leg raising test , positive at degree Fabere test positive RT and positive LT . Multiple trigger points identified in the lumbar paravertebral muscles Results CBC & Chem 7: 01/10/18 08:33 01/10/18 08:33 Labs: Abnormal Lab Results - Last 24 Hours (Table) 01/10/18 01/10/18 Range/Units 08:33 08:33 Iron 26 L (50-170) ug/dL TIBC 182 L (228-460) ug/dL Ferritin 2395.7 H (10.0-291.0) ng/mL Assessment and Plan Plan: Assessment and plan=1-lumbar radiculopathy. 2-myofascial pain syndrome and lumbar paravertebral muscles. Patient could benefit from lumbar epidural steroid injections, under fluoroscopy guidance and at the same time he can do trigger point injection Patient should continue her current medication, procedure risk and benefits and alternatives discussed with the patient and she agreed with the preceding Time with Patient: Less than 30 PQRS Measure Charge Sheet PQRS Narrative: Smoking Status Never smoker Do You Want the Pneumonia Vaccine Up to Date Vaccine AT THIS TIME? Blood Pressure [Left Arm] 142/74 Blood Pressure [Right Arm 195/103 Standing] Blood Pressure [Right Arm 156/77 Sitting] Blood Pressure [Right Arm 162/72 Supine] Blood Pressure [Right Arm] 187/79 Blood Pressure 134/80 Pain Intensity [Right Arm] 0 Pain Intensity [Right Buttock] 5 Pain Intensity 3 Pain Scale Used Numeric (1 - 10) Scale Used Numeric (1 - 10) Home Medications: Ambulatory Orders Isosorbide Mononitrate [Imdur] 60 mg PO QAM 07/29/13 Pilocarpine HCl [Salagen] 7.5 mg PO BID 07/29/13 L.acidoph/B.long/L.plant/B.lac [Probiotic Acidophilus Beads] 1 cap PO HS Multivitamins, Thera [Multivitamin (formulary)] 1 tab PO HS 03/01/15 Vit C/E/Zn/Coppr/Lutein/Zeaxan [Preservision Areds 2 Softgel] 1 cap PO HS Escitalopram [Lexapro] 10 mg PO QAM 08/29/15 OLANZapine [ZyPREXA] 10 mg PO PC-SUPPER 08/29/15 Ascorbic Acid [Vitamin C] 500 mg PO DAILY 10/30/16 Cholecalciferol [Vitamin D3] 1,000 unit PO HS 10/30/16 Lansoprazole [Prevacid] 15 mg PO QAM 10/30/16 Lisinopril 40 mg PO BID 10/30/16 Ubidecarenone [Co Q-10] 100 mg PO HS 10/30/16 Metoprolol Succinate (ER) [Toprol XL] 50 mg PO QAM 11/23/16 Albuterol Inhaler [Ventolin Hfa Inhaler] 1 - 2 puff INHALATION RT-Q6H PRN Calcium Carb-Vit D 250Mg-125Un [Oscal 250+D] 1 tab PO BID 08/03/17 ALPRAZolam [Xanax] 0.25 mg PO BID PRN #6 tablet 12/18/17 oxyCODONE-APAP 5-325MG [Percocet 5-325 mg] 1 tab PO BID PRN #6 tab 12/18/17 Tolterodine ER [Detrol LA] 2 mg PO DAILY 01/10/18
[2018-01-13] MEDS: ISOSORBIDE MONONITRATE ER 60 MG TAB.ER.24H PO SCH (08:24)
[2018-01-13] MEDS: DULoxetine HCL 30 MG CAPSULE.DR PO SCH (08:24)
[2018-01-13] MEDS: PANTOPRAZOLE 40 MG TABLET PO SCH (08:24)
[2018-01-13] MEDS: ASCORBIC ACID 500 MG TAB PO SCH (08:24)
[2018-01-13] MEDS: METOPROLOL SUCCINATE (ER) 50 MG TAB.ER.24H PO SCH (08:24)
[2018-01-13] MEDS: OXYBUTYNIN XL 5 MG TAB.ER.24 PO SCH (08:24)
--- NOTE | 2018-01-13 08:48 | P.PN ---
Subjective Progress Note Date: 01/13/18 Principal diagnosis: Left lower extremity lumbar radiculopathy. Left lower extremity pain. History of right pelvis fracture. History of right hip fracture. This is a pleasant 82-year-old female with history of a fall a few weeks ago sustaining injury to her right hip. She was seen in the hospital with superior/ inferior Rami fractures on the right. She has history of intertrochanteric nail of the right hip for fracture. She was in rehab for her pelvis fractures. She was doing fairly well but then began having severe left lower extremity pain which she states radiates all the way up to her buttock. X-rays were obtained of the left tib-fib and left knee which are negative for fracture. She states that her pain is slightly improved today. She has been seen by pain management for possible epidural steroid injection. Objective - Vital Signs Vital signs: Vital Signs Temp 97.1 F L 01/12/18 23:00 Pulse 83 01/13/18 07:00 Resp 18 01/12/18 23:00 BP 159/63 01/13/18 07:00 Pulse Ox 97 01/12/18 23:00 Intake & Output 01/12/18 01/13/18 01/13/18 18:59 06:59 18:59 Intake Total 200 650 Balance 200 650 Intake: Oral 200 650 Other: Voiding Method Diaper Diaper # Voids 1 3 - Exam This is an 82-year-old female in no acute distress. She is alert and oriented 3. Her is present at bedside. Exam of the low back reveals no obvious deformity. There is mild tenderness with palpation about the low back. Exam of the lower extremities reveals no obvious deformity. Left leg pain is slightly improved today. She still has some pain with straight leg raise. She has full foot ankle motion bilaterally. Neurovascular status to the lower extremity is intact. - Labs CBC & Chem 7: 01/10/18 08:33 01/10/18 08:33 Labs: Abnormal Lab Results - Last 24 Hours (Table) 01/10/18 01/10/18 Range/Units 08:33 08:33 Iron 26 L (50-170) ug/dL TIBC 182 L (228-460) ug/dL Ferritin 2395.7 H (10.0-291.0) ng/mL Assessment and Plan (1) Pelvic fracture Current Visit: Yes Status: Acute Code(s): S32.9XXA - FRACTURE OF UNSP PARTS OF LUMBOSACRAL SPINE AND PELVIS, INIT SNOMED Code(s): 03420319 (2) Risk for falls Current Visit: Yes Status: Acute Code(s): Z91.81 - HISTORY OF FALLING SNOMED Code(s): 994806315 (3) Chronic back pain greater than 3 months duration Current Visit: No Status: Acute Code(s): M54.9 - DORSALGIA, UNSPECIFIED; G89.29 - OTHER CHRONIC PAIN SNOMED Code(s): 812069236 (4) Failure of outpatient treatment Current Visit: No Status: Acute Code(s): Z78.9 - OTHER SPECIFIED HEALTH STATUS SNOMED Code(s): 010968448 (5) Left leg pain Current Visit: Yes Status: Acute Code(s): M79.605 - PAIN IN LEFT LEG SNOMED Code(s): 736908711 Plan: The clinical and x-ray findings are discussed with the patient. Pain management has discussed possible epidural steroid injection. I believe the patient would benefit from an injection. We'll continue to follow peripherally.
[2018-01-13 09:41] VITALS: TEMP 97.8
--- NOTE | 2018-01-13 09:42 | P.DS ---
Providers Date of admission: 01/10/18 11:50 Expected date of discharge: 01/13/18 Attending physician: Lester Hall Consults: 01/11/18 13:52 Consult Physician Routine Consulting Provider: Juan Crane Consult Reason/Comments: recent right pelvic fx, pain left hip Do you want consulting provider notified?: Yes 01/12/18 13:55 Consult Physician Routine Consulting Provider: [place] Marcelo Consult Reason/Comments: left trigger inj, piriformis, sciatica Do you want consulting provider notified?: Yes Primary care physician: Shimon Garcia [place] [facility] Course: This is a 82-year-old female patient of Dr. Garcia's with past medical history of asthma, CAD with ischemic cardiomyopathy, previous history of lung cancer post resection who is known to have severe lower back pain. Patient had back surgery in May [address] Simmons, Klebsiella pneumoniae ESBL urinary tract infection CAD, asthma, memory impairment, rectal cancer requiring colostomy bag. And on 12/17/2017 she sustained right superior inferior pubic rami fracture after a fall at home along with a urinary tract infection for which she was treated, and subsequently sent to subacute rehabilitation at [facility],. she was walking with her walker prior to her fall, she has also an old fracture, requiring an intramedullary jordana in the in that trochanteric area patient lives with her . She was t to be followed by home physical therapy and nurse visits at home, discharge on 4 days ago, no home therapy people showed up Patient comes into emergency room with difficulties ambulating for the past 24 hours, patient cannot get out of the chair, pain is in the left side of the hip , even though the right hip has the inferior superior pubic, fracture, she also mentions that she takes Percocet for the longest time, and did not run out of the Percocet at home. Orthopedics were consulted x-rays were obtained of the left hip patient is at risk for falls at home, she has failed subacute rehabilitation, pain is coming in from the left hip radiating down to the foot, suspicious of sciatica exacerbation. Patient comes in with hydration according to the emergency room, patient also has had weight losses, protein malnutrition , urinalysis is negative at this time. Creatinine on admission was 0.77, BUN of 24 hemoglobin of 9.6 WBC count of 5.1 X-ray findings in the emergency room shows kyphoplasty L4, fractures of the superior and inferior pubic rami on the right, which is previously seen from , kyphoplasty L4, postsurgical changes in EKG shows old inferior infarct , normal sinus rhythm urinalysis negative, x-ray knee shows no fracture left knee. Fit x-ray shows vague nonspecific cortical medullary lucency distal one third left tibial diaphysis no acute fracture 01/12: Patient has been seen by orthopedics. There is slight increase in displacement of the superior inferior pubic rami fracture. IT nail in good position and alignment. There is concern that her pain may be coming from her low back. The patient was found standing for physical therapy and is complaining of left-sided hip pain. She does have some tenderness in the left lumbar/buttocks area. Consult added for Dr. Marcelo. For left trigger ejection. Performance. Iron studies ordered. Baez catheter has been removed Social work is developing plan for [facility] for subacute rehab 01/13: Patient has been seen by Dr. Marcelo and underwent lumbar epidural steroid injection and trigger point injection. Lexapro was discontinued and patient started on Cymbalta during this admission for pain control. Vital signs have been stable, patient is been afebrile. Iron studies showed ferritin of 2395, iron 26, TIBC 182, iron saturation of 14.29. Patient will be discharged to [facility] once pain procedures are completed. Discharge diagnoses: 1. Impaired mobility with difficulty in ambulating, fall risk, sciatica exacerbation, secondary to lumbar radiculopathy and myofascial pain syndrome and lumbar paravertebral muscles. 2. Subacute right hip pubic rami fracture with an old intratrochanteric fracture requiring intramedullary jordana placement by Dr. Pond in the past 3. Osteoporosis with current osteoporotic fracture right superior inferior pubic. 4. Chronic kidney failure CKD stage II, at baseline with anemia of chronic disease. 5. CAD and severe ischemic cardiomyopathy with low ejection fraction of 50% 6. Hypertension 7. Sjogren syndrome 8. Anemia of chronic disease with history of GI bleed without any recent bleeding. 9. Chronic pain syndrome 10. Overactive bladder 11. Mild memory loss 12. Chronic diastolic heart failure 13. History of colon cancer, colostomy bag, stable 14. Dysthymia Discharge plan: [facility] under the care of Dr. Radha Impression and plan of care have been directed as dictated by the signing physician. Caitlin Francsi nurse practitioner acting as scribe for signing physician. Patient Condition at Discharge: Good Plan - Discharge Summary New Discharge Prescriptions: New DULoxetine HCL [Cymbalta] 30 mg PO DAILY capsule.dr Hooker Isosorbide Mononitrate [Imdur] 60 mg PO QAM Pilocarpine HCl [Salagen] 7.5 mg PO BID L.acidoph/B.long/L.plant/B.lac [Probiotic Acidophilus Beads] 1 cap PO HS Multivitamins, Thera [Multivitamin (formulary)] 1 tab PO HS Vit C/E/Zn/Coppr/Lutein/Zeaxan [Preservision Areds 2 Softgel] 1 cap PO HS OLANZapine [ZyPREXA] 10 mg PO PC-SUPPER Cholecalciferol [Vitamin D3] 1,000 unit PO HS Ubidecarenone [Co Q-10] 100 mg PO HS Ascorbic Acid [Vitamin C] 500 mg PO DAILY Lansoprazole [Prevacid] 15 mg PO QAM Metoprolol Succinate (ER) [Toprol XL] 50 mg PO QAM Albuterol Inhaler [Ventolin Hfa Inhaler] 1 - 2 puff INHALATION RT-Q6H PRN PRN Reason: Shortness Of Breath Calcium Carb-Vit D 250Mg-125Un [Oscal 250+D] 1 tab PO BID Tolterodine ER [Detrol LA] 2 mg PO DAILY ALPRAZolam [Xanax] 0.25 mg PO BID PRN #6 tablet PRN Reason: Anxiety oxyCODONE-APAP 5-325MG [Percocet 5-325 mg] 1 tab PO BID PRN #6 tab PRN Reason: Pain Changed Lisinopril 20 mg PO BID #0 Discontinued Escitalopram [Lexapro] 10 mg PO QAM Discharge Medication List Isosorbide Mononitrate [Imdur] 60 mg PO QAM 07/29/13 [History] Pilocarpine HCl [Salagen] 7.5 mg PO BID 07/29/13 [History] L.acidoph/B.long/L.plant/B.lac [Probiotic Acidophilus Beads] 1 cap PO HS [History] Multivitamins, Thera [Multivitamin (formulary)] 1 tab PO HS 03/01/15 [History] Vit C/E/Zn/Coppr/Lutein/Zeaxan [Preservision Areds 2 Softgel] 1 cap PO HS [History] OLANZapine [ZyPREXA] 10 mg PO PC-SUPPER 08/29/15 [History] Ascorbic Acid [Vitamin C] 500 mg PO DAILY 10/30/16 [History] Cholecalciferol [Vitamin D3] 1,000 unit PO HS 10/30/16 [History] Lansoprazole [Prevacid] 15 mg PO QAM 10/30/16 [History] Ubidecarenone [Co Q-10] 100 mg PO HS 10/30/16 [History] Metoprolol Succinate (ER) [Toprol XL] 50 mg PO QAM 11/23/16 [History] Albuterol Inhaler [Ventolin Hfa Inhaler] 1 - 2 puff INHALATION RT-Q6H PRN [History] Calcium Carb-Vit D 250Mg-125Un [Oscal 250+D] 1 tab PO BID 08/03/17 [History] Tolterodine ER [Detrol LA] 2 mg PO DAILY 01/10/18 [History] ALPRAZolam [Xanax] 0.25 mg PO BID PRN #6 tablet 01/13/18 [Rx] DULoxetine HCL [Cymbalta] 30 mg PO DAILY capsule. 01/13/18 [Rx] Lisinopril 20 mg PO BID #0 01/13/18 [Rx] oxyCODONE-APAP 5-325MG [Percocet 5-325 mg] 1 tab PO BID PRN #6 tab 01/13/18 [Rx] Follow up Appointment(s)/Referral(s): Serjio Burciaga, [NON-STAFF] - As Needed Shimon Garcia MD [Primary Care Provider] - 1 Week (at [facility]) Discharge/Stand Alone Forms: Anes Pain/[place] Instructions Discharge Disposition: TRANSFER TO SNF/ECF
--- NOTE | 2018-01-13 12:35 | P.PCN ---
Date of Procedure: 01/13/18 Procedure(s) Performed: PREOPERATIVE DIAGNOSIS: 1- Lumbar Degenerative Disc Diseases 2-myofascial pain syndrome lumbar area POSTOPERATIVE DIAGNOSIS: 1-Lumber Degenerative Disc Diseases 2-myofascial pain syndrome lumbar area. PROCEDURE 1. Lumbar epidural steroid injection under fluoroscopic guidance at the L4-5 level. 2. Lumbar epidurogram. 3-trigger point injections lumbar paravertebral muscles total of 4 trigger points injected, 3 on the right side lumbar paravertebral muscles, and 1 on the left side lumbar paravertebral muscles. ANESTHESIA: moderate sedation with intravenous Versed 1 mg ,and fentanyle 50 Mcg EBL: Minimal PROCEDURE INDICATION: The patient with low back pain and radiculitis symptoms unresponsive to conservative treatment. Fluoroscopy was used to optimize visualization of the needle placement and to maximize safety. PROCEDURE DESCRIPTION / TECHNIQUE: The patient was seen and identified in the preoperative area. Risks, benefits , complications including but not limited to infections ,bleeding ,allergic reaction to the medications ,nerve damage and not complete pain releife , and alternatives were discussed with the patient. The patient agreed to proceed with the procedure and signed the consent. IV was started, and vital signs were stable. Patient was taken to the OR and time out was completed. The patient was placed in the prone position on procedure table and a pillow was placed under the abdomen to reduce lumbar lordosis. The lumbosacral area was prepped and draped in the usual sterile fashion.ere closely monitored during the procedure. Conscious sedation was used during the procedure to decrease patients anxiety. Vital signs was monitered during the entire procedure. Using anterior-posterior fluoroscopy, the L4-5 interlaminar space was identified and the skin over this site was marked and then infiltrated with 1% lidocaine subcutaneously. Subsequently, a 20-gauge Tuohy epidural needle was inserted and advanced toward the epidural space using the ``Loss of resistance technique and guided by AP and lateral fluoroscopy. The correct needle position in the epidural space was verified with the injection of 2 mL of the water soluble contrast dye Isovue 200 contrast and observing an excellent epidurogram with the epidural spread of the dye, after negative aspiration for blood and CSF and in the absence of paresthesias. Again after negative aspiration, a 6 ml mixture containing 40 mg of Depo- medrol and 2 ml of preservative free Normal Saline, and 2 ml of preservative free lidocaine 1% solution was injected and a washout of epidurogram was seen. Needle was withdrawn intact, Then after that the trigger point injected there was 4 trigger point 3 on the right side lumbar paravertebral muscles, and 1 on the left side lumbar paravertebral muscles, each one of them injected with bupivacaine 0.5% 2 mL injected at each trigger point after negative aspiration using 25-gauge needle, COMPLICATIONS: None
--- NOTE | 2018-01-13 15:57 | FL ---
Fluoroscopy HISTORY: Pain 4 seconds fluoroscopy time supplied to the referring clinician. 1 intraoperative C-arm images docume nt the procedure. See dictated report from anesthesia.
[2018-01-13 16:37] VITALS: RESP 18
[2018-01-13 17:20] VITALS: BP 147/66
[2018-01-13 17:46] VITALS: PULSE 82
== END 2018-01-13 15:59 | DRG 552 ==
LOC: EC 08:04 → UNDOADMIN 11:50 → 4MS4W 11:50
PROVIDERS: ADMIT Internal Medicine; ATTEND Internal Medicine
PROC: 3E0R33Z Introduction of Anti-inflammatory into Spinal Canal, Percutaneous Approach (ICD-10-PCS; principal; 2018-01-13)
PROC: B01BYZZ Fluoroscopy of Spinal Cord using Other Contrast (ICD-10-PCS; 2018-01-13)
PROC: 3E0R3BZ Introduction of Anesthetic Agent into Spinal Canal, Percutaneous Approach (ICD-10-PCS; 2018-01-13)
PROC: 3E023BZ Introduction of Anesthetic Agent into Muscle, Percutaneous Approach (ICD-10-PCS; 2018-01-13)
DX: M51.16 Intervertebral disc disorders with radiculopathy, lumbar region (principal); I50.32 Chronic diastolic (congestive) heart failure; I13.0 Hypertensive heart and chronic kidney disease with heart failure and stage 1 through stage 4 chronic kidney disease, or unspecified chronic kidney disease; M80.051A Age-related osteoporosis with current pathological fracture, right femur, initial encounter for fracture; E46 Unspecified protein-calorie malnutrition; E86.0 Dehydration; M35.00 Sjogren syndrome, unspecified; I25.5 Ischemic cardiomyopathy; F06.8 Other specified mental disorders due to known physiological condition; D63.1 Anemia in chronic kidney disease; M79.18 Myalgia, other site; R62.7 Adult failure to thrive; J45.909 Unspecified asthma, uncomplicated; M19.91 Primary osteoarthritis, unspecified site; R29.6 Repeated falls; I25.10 Atherosclerotic heart disease of native coronary artery without angina pectoris; G47.30 Sleep apnea, unspecified; N18.2 Chronic kidney disease, stage 2 (mild); F34.1 Dysthymic disorder; N32.81 Overactive bladder; G89.4 Chronic pain syndrome; Z68.20 Body mass index [BMI] 20.0-20.9, adult; Z79.899 Other long term (current) drug therapy; Z93.3 Colostomy status; Z99.89 Dependence on other enabling machines and devices; Z91.81 History of falling; Z87.19 Personal history of other diseases of the digestive system; Z85.048 Personal history of other malignant neoplasm of rectum, rectosigmoid junction, and anus; Z90.49 Acquired absence of other specified parts of digestive tract; Z86.14 Personal history of Methicillin resistant Staphylococcus aureus infection; Z86.19 Personal history of other infectious and parasitic diseases; Z90.710 Acquired absence of both cervix and uterus; Z87.81 Personal history of (healed) traumatic fracture; Z85.118 Personal history of other malignant neoplasm of bronchus and lung; Z87.440 Personal history of urinary (tract) infections; Z90.2 Acquired absence of lung [part of]; Z98.42 Cataract extraction status, left eye; Z98.41 Cataract extraction status, right eye; Z88.5 Allergy status to narcotic agent; Z88.0 Allergy status to penicillin; Z88.8 Allergy status to other drugs, medicaments and biological substances; Z88.6 Allergy status to analgesic agent; Z88.1 Allergy status to other antibiotic agents; Z91.02 Food additives allergy status; Z91.011 Allergy to milk products; Z84.1 Family history of disorders of kidney and ureter; Z82.0 Family history of epilepsy and other diseases of the nervous system; Z82.3 Family history of stroke; Z83.49 Family history of other endocrine, nutritional and metabolic diseases; Z80.9 Family history of malignant neoplasm, unspecified
CPT/HCPCS: 36415; 51702; 64483; 71046; 72170; 73502; 80053; 81003; 82550; 82553; 82728; 83540; 83550; 83690; 83735; 84484; 85025; 93005; 96360; 96361; 99152; 99153; 99285

== ENCOUNTER → 2018-03-01 | Outpatient (CLI) | payer MEDICARE ==
--- NOTE | 2018-03-02 11:41 | CT ---
EXAMINATION TYPE: CT abdomen pelvis w con DATE OF EXAM: 03/01/2018 COMPARISON: 08/03/[address] INDICATION: Abdominal pain. DLP: 432.5 mGycm, Automated exposure control for dose reduction was used. CONTRAST: 80ml mL of Isovue M300. Study performed with Oral Contrast TECHNIQUE: Axial images were obtained from above the diaphragm to the pubic rami in the axial plane a t 5 mm thick sections. Reconstructed images are reviewed on the computer in the coronal plane. FINDINGS: Limited CT sections are obtained the lung bases. There are several punctate the 3 mm densities at th e right lung base. Series 4, images [address] ABDOMEN: Liver: Normal Spleen: Scattered calcified granuloma are within the spleen. Pancreas: Atrophic Adrenal glands: The adrenal glands are normal. Gallbladder: Normal Kidneys: No masses are evident. No hydronephrosis is present. No cysts are present. Delayed images were obtained through the kidneys, which remain unremarkable. Aorta: Vascular calcification is within the aorta. Inferior vena cava: Normal. CT PELVIS: There is an anterior abdominal wall hernia in the right pelvis. This is adjacent to the co lostomy site. Nonobstructed colon with fecal debris is present. Loops of bowel within the abdomen and pelvis are otherwise normal. There are loops of bowel which are incompletely distended or lack oral contrast limiting their evaluation. Appendix: Not identified Urinary bladder: Normal. Genitourinary structures: Uterus and ovaries are not identified. No free fluid is within the pelvis. Osseous structures: No suspicious lytic or sclerotic lesions. There is a right hip pin present. Old f ractures of the right symphysis pubis are evident. There may be some lytic areas through the sacrum. Vertebroplasty is within the lumbar spine. IMPRESSIONS: 1. Colonic herniation adjacent to the colostomy site right lower quadrant. This appears nonobstructe d.
== END | disposition home or self-care (01) ==
LOC: RADCTMAIN 14:34
PROVIDERS: ATTEND Internal Medicine
DX: K46.9 Unspecified abdominal hernia without obstruction or gangrene (principal)
CPT/HCPCS: 82565; 84520; 74177; 36415; Q9967

== ENCOUNTER 2018-08-27 06:45 | Emergency (ER) | payer MEDICARE ==
[2018-08-27 06:57] VITALS: TEMP 97.5
[2018-08-27] MEDS ORDERED: SODIUM CHLORIDE 0.9% 500 ML 500 ML IV STA (07:23)
[2018-08-27] MEDS ORDERED: HYDROmorphone 1 MG/ML 1 ML SYRINGE IVP STA (07:28)
[2018-08-27] MEDS ORDERED: ONDANSETRON 4 MG/2 ML VIAL IVP STA (07:28)
--- NOTE | 2018-08-27 07:32 | ED ---
General Adult HPI - General Chief complaint: Fall Stated complaint: Fall Time Seen by Provider: 08/27/18 07:00 Source: patient, EMS, RN notes reviewed Mode of arrival: EMS Limitations: no limitations - History of Present Illness Initial comments: This is an 83-year-old female who presents to the emergency department complaining of some neck pain and right shoulder pain. Patient states she got up out of bed and felt funny and proceeded to fall over. Patient states she landed on her right shoulder. Patient states she does not believe she lost consciousness. Patient denies hitting her head. Patient denies any other extremity pain. Patient denies any pain in the right elbow right wrist or right hand. Patient denies any chest pain or back pain. Patient denies abdominal pain. She states she did not feel any palpitations chest pain or shortness of breath prior to falling. Patient thinks she might of just gotten up too fast and was not using her walker like she has been told to do. - Related Data Home Medications Medication Instructions Recorded Confirmed Isosorbide Mononitrate [Imdur] 60 mg PO QAM 07/29/13 08/27/18 Pilocarpine HCl [Salagen] 7.5 mg PO BID 07/29/13 08/27/18 L.acidoph/B.long/L.plant/B.lac 1 cap PO HS 05/09/14 08/27/18 [Probiotic Acidophilus Beads] Multivitamins, Thera [Multivitamin 1 tab PO HS 03/01/15 08/27/18 (formulary)] Vit C/E/Zn/Coppr/Lutein/Zeaxan 1 cap PO HS 03/14/15 08/27/18 [Preservision Areds 2 Softgel] OLANZapine [ZyPREXA] 10 mg PO PC-SUPPER 08/29/15 08/27/18 Ascorbic Acid [Vitamin C] 500 mg PO DAILY 10/30/16 08/27/18 Cholecalciferol [Vitamin D3 (25 1,000 unit PO HS 10/30/16 08/27/18 Mcg = 1000 Iu)] Lansoprazole [Prevacid] 15 mg PO QAM 10/30/16 08/27/18 Ubidecarenone [Co Q-10] 100 mg PO HS 10/30/16 08/27/18 Metoprolol Succinate (ER) [Toprol 50 mg PO QAM 11/23/16 08/27/18 XL] Albuterol Inhaler [Ventolin Hfa 1 - 2 puff INHALATION RT-Q6H PRN 06/20/17 08/27/18 Inhaler] Calcium Carb-Vit D 250Mg-125Un 1 tab PO BID 08/03/17 08/27/18 [Oscal 250+D] Tolterodine ER [Detrol LA] 2 mg PO DAILY 01/10/18 08/27/18 Escitalopram [Lexapro] 10 mg PO DAILY 08/27/18 08/27/18 oxyCODONE-APAP 5-325MG [Percocet 1 tab PO BID 08/27/18 08/27/18 5-325 mg] Previous Rx's Medication Instructions Recorded ALPRAZolam [Xanax] 0.25 mg PO BID PRN #6 tablet 01/13/18 Lisinopril 20 mg PO BID #0 01/13/18 Nitrofurantoin Monohyd/M-Cryst 100 mg PO Q12HR #14 cap 08/27/18 [Macrobid] Allergies Allergy/AdvReac Type Severity Reaction Status Date / Time aspirin Allergy Anaphylaxis Verified 08/27/18 08:22 caffeine Allergy CREATES Verified 08/27/18 08:22 TOO MUCH STOMACH ACID celecoxib [From Celebrex] Allergy Rash/Hives Verified 08/27/18 08:22 codeine Allergy Anaphylaxis Verified 08/27/18 08:22 doxycycline Allergy Unknown Verified 08/27/18 08:22 hydrocodone bitartrate Allergy Unknown Verified 08/27/18 08:22 [From Baudette] milk Allergy Rash/Hives Verified 08/27/18 08:22 Penicillins Allergy Rash/Hives Verified 08/27/18 08:22 rofecoxib [From Vioxx] Allergy Rash/Hives Verified 08/27/18 08:22 clarithromycin [From Biaxin] AdvReac Nausea Verified 08/27/18 08:22 clindamycin AdvReac Nausea Verified 08/27/18 08:22 levofloxacin [From Levaquin] AdvReac Nausea Verified 08/27/18 08:22 Morpholine Analogues AdvReac Confusion Verified 08/27/18 08:22 ranitidine HCl [From Zantac] AdvReac Rash/Hives Verified 08/27/18 08:22 Review of Systems ROS Statement: Those systems with pertinent positive or pertinent negative responses have been documented in the HPI. ROS Other: All systems not noted in ROS Statement are negative. Past Medical History Past Medical History: Asthma, Coronary Artery Disease (CAD), Cancer, GI Bleed, Hypertension, Memory Impairment, Musculoskeletal Disorder, Osteoarthritis (OA), Sleep Apnea/CPAP/BIPAP Additional Past Medical History / Comment(s): Sjogren syndrome, RECTAL CANCER WITH COLOSTOMY , anemia, OVER ACTIVE BLADDER, hx. L4 fracture, BRONCH WASHING WAS POSITIVE FOR KLEBSIELLA PNUEMONAE., BACK PAIN. FREQUENT FALLS. History of Any Multi-Drug Resistant Organisms: ESBL, MRSA Date of last positivie culture/infection: 08/26/17 ESBL Klebsiella, MRSA 01/18/18 MDRO Source:: Urine Past Surgical History: Adenoidectomy, Appendectomy, Back Surgery, Bowel Resection, Breast Surgery, Heart Catheterization, Hysterectomy, Tonsillectomy, Uterine Ablation Additional Past Surgical History / Comment(s): PERMANENT COLOSTOMY. throat surgery removed uvula,L3-L4 two fractured vertebrae, sofi cataracts, kyphoplasty L4, PICCLINE IN MAY FOR ABX(PNE) SINCE REMOVED. PICC LINE PLACEMENT, COLONOSCOPY, EGD, UTI 08/2017 Past Anesthesia/Blood Transfusion Reactions: No Reported Reaction Additional Past Anesthesia/Blood Transfusion Reaction / Comment(s): HX OF BLOOD TRANSFUSION Past Psychological History: No Psychological Hx Reported Smoking Status: Never smoker Past Alcohol Use History: None Reported Past Drug Use History: None Reported - Past Family History Mother History Unknown: Yes Family Medical History: Dialysis, Renal Disease Brother(s) History Unknown: Yes Family Medical History: No Reported History Sister(s) History Unknown: Yes Family Medical History: No Reported History Additional Family Medical History / Comment(s): Parkinsons Father Family Medical History: Cancer, CVA/TIA Additional Family Medical History / Comment(s): 3 out of 4 siblings dx. autoimmune disease General Exam - General Exam Comments Initial Comments: GENERAL: Patient is well-developed and well-nourished. Patient is nontoxic and well-hydr ated and is in moderate distress. ENT: Neck is soft and supple. No significant lymphadenopathy is noted. Oropharynx is clear. Moist mucous membranes. Neck has full range of motion without eliciting any pain. EYES: The sclera were anicteric and conjunctiva were pink and moist. Extraocular move ments were intact and pupils were equal round and reactive to light. Eyelids were unremarkable. PULMONARY: Unlabored respirations. Good breath sounds bilaterally. No audible rales rhonchi or wheezing was noted. CARDIOVASCULAR: There is a regular rate and rhythm without any murmurs gallops or rubs. ABDOMEN: Soft and nontender with normal bowel sounds. SKIN: Skin is clear with no lesions or rashes and otherwise unremarkable. NEUROLOGIC: Patient is alert and oriented x3. Cranial nerves II through XII are grossly intact. MUSCULOSKELETAL: Patient's lateral right shoulder tenderness no gross deformity is noted. Patient has tenderness to the lateral aspect of the right hip and pain with any kind of movement of that hip LYMPHATICS: No significant lymphadenopathy is noted PSYCHIATRIC: Normal psychiatric evaluation. Limitations: no limitations Course Vital Signs 08/27/18 08/27/18 08/27/18 06:53 07:36 10:34 Temperature 97.5 F L Pulse Rate 73 73 85 Respiratory 20 20 20 Rate Blood Pressure 166/80 147/69 110/56 O2 Sat by Pulse 93 L 95 99 Oximetry 08/27/18 11:27 Temperature Pulse Rate 84 Respiratory 18 Rate Blood Pressure 95/67 O2 Sat by Pulse 94 L Oximetry Medical Decision Making - Medical Decision Making EKG shows normal sinus rhythm at 70 bpm IA interval 198 QRSs 80 QT interval 370 QTC is 4:30. Patient's EKG shows no ST segment elevation or depression or T wave abnormalities are noted. CT of the head and C-spine showed no acute abnormality. X-ray of the right humerus shows a impacted humeral neck fracture. X-ray of the hip shows a acetabular fracture as well as pubic rami fracture Computed tomography scan of the right hip shows acetabular fracture. I spoke with [facility] and and they wanted the patient transferred for the acetabular fracture I spoke with Dr. Wiley and he agreed to accept the patient[facility] - Lab Data Result diagrams: 08/27/18 07:09 08/27/18 07:09 Lab Results 08/27/18 08/27/18 08/27/18 Range/Units 07:09 07:09 07:09 WBC 9.5 (3.8-10.6) k/uL RBC 3.74 L (3.80-5.40) m/uL Hgb 11.6 (11.4-16.0) gm/dL Hct 35.3 (34.0-46.0) % MCV 94.4 (80.0-100.0) fL MCH 31.0 (25.0-35.0) pg MCHC 32.9 (31.0-37.0) g/dL RDW 13.0 (11.5-15.5) % Plt Count 139 L (150-450) k/uL Neutrophils % 75 % Lymphocytes % 15 % Monocytes % 4 % Eosinophils % 4 % Basophils % 0 % Neutrophils # 7.2 (1.3-7.7) k/uL Lymphocytes # 1.4 (1.0-4.8) k/uL Monocytes # 0.4 (0-1.0) k/uL Eosinophils # 0.3 (0-0.7) k/uL Basophils # 0.0 (0-0.2) k/uL PT 10.1 (9.0-12.0) sec INR 0.9 (<1.2) APTT 23.2 (22.0-30.0) sec Sodium 138 (137-145) mmol/L Potassium 4.9 (3.5-5.1) mmol/L Chloride 103 (98-107) mmol/L Carbon Dioxide 25 (22-30) mmol/L Anion Gap 10 mmol/L BUN 25 H (7-17) mg/dL Creatinine 1.14 H (0.52-1.04) mg/dL Est GFR (CKD-EPI)AfAm 51 (>60 ml/min/1.73 sqM) Est GFR (CKD-EPI)NonAf 45 (>60 ml/min/1.73 sqM) Glucose 110 H (74-99) mg/dL Calcium 9.5 (8.4-10.2) mg/dL Magnesium 1.9 (1.6-2.3) mg/dL Total Bilirubin 0.6 (0.2-1.3) mg/dL AST 35 (14-36) U/L ALT 24 (9-52) U/L Alkaline Phosphatase 64 (38-126) U/L Troponin I (0.000-0.034) ng/mL Total Protein 7.0 (6.3-8.2) g/dL Albumin 4.1 (3.5-5.0) g/dL Urine Color Urine Appearance (Clear) Urine pH (5.0-8.0) Ur Specific [place] (1.001-1.035) Urine Protein (Negative) Urine Glucose (UA) (Negative) Urine Ketones (Negative) Urine Blood (Negative) Urine Nitrite (Negative) Urine Bilirubin (Negative) Urine Urobilinogen (<2.0) mg/dL Ur Leukocyte Esterase (Negative) Urine RBC (0-5) /hpf Urine WBC (0-5) /hpf Urine Bacteria (None) /hpf Urine Mucus (None) /hpf 08/27/18 08/27/18 Range/Units 07:09 08:00 WBC (3.8-10.6) k/uL RBC (3.80-5.40) m/uL Hgb (11.4-16.0) gm/dL Hct (34.0-46.0) % MCV (80.0-100.0) fL MCH (25.0-35.0) pg MCHC (31.0-37.0) g/dL RDW (11.5-15.5) % Plt Count (150-450) k/uL Neutrophils % % Lymphocytes % % Monocytes % % Eosinophils % % Basophils % % Neutrophils # (1.3-7.7) k/uL Lymphocytes # (1.0-4.8) k/uL Monocytes # (0-1.0) k/uL Eosinophils # (0-0.7) k/uL Basophils # (0-0.2) k/uL PT (9.0-12.0) sec INR (<1.2) APTT (22.0-30.0) sec Sodium (137-145) mmol/L Potassium (3.5-5.1) mmol/L Chloride (98-107) mmol/L Carbon Dioxide (22-30) mmol/L Anion Gap mmol/L BUN (7-17) mg/dL Creatinine (0.52-1.04) mg/dL Est GFR (CKD-EPI)AfAm (>60 ml/min/1.73 sqM) Est GFR (CKD-EPI)NonAf (>60 ml/min/1.73 sqM) Glucose (74-99) mg/dL Calcium (8.4-10.2) mg/dL Magnesium (1.6-2.3) mg/dL Total Bilirubin (0.2-1.3) mg/dL AST (14-36) U/L ALT (9-52) U/L Alkaline Phosphatase (38-126) U/L Troponin I <0.012 (0.000-0.034) ng/mL Total Protein (6.3-8.2) g/dL Albumin (3.5-5.0) g/dL Urine Color Light Yellow Urine Appearance Clear (Clear) Urine pH 6.5 (5.0-8.0) Ur Specific [place] 1.012 (1.001-1.035) Urine Protein Negative (Negative) Urine Glucose (UA) Negative (Negative) Urine Ketones Negative (Negative) Urine Blood Negative (Negative) Urine Nitrite Negative (Negative) Urine Bilirubin Negative (Negative) Urine Urobilinogen <2.0 (<2.0) mg/dL Ur Leukocyte Esterase Moderate H (Negative) Urine RBC 2 (0-5) /hpf Urine WBC 26 H (0-5) /hpf Urine Bacteria Few H (None) /hpf Urine Mucus Rare H (None) /hpf Disposition Clinical Impression: Urinary tract infection, Fx humeral neck, Acetabular fracture Disposition: OTHER INSTITUTION NOT DEFINED Condition: Good Prescriptions: Nitrofurantoin Monohyd/M-Cryst [Macrobid] 100 mg PO Q12HR #14 cap Referrals: Shimon Garcia MD [Primary Care Provider] - 1-2 days Time of Disposition: 09:33 - Out of Hospital Transfer - Req. Specs Out of Hospital Transfer - Requested Specifics: Other Emergency Center ([facility])
[2018-08-27 07:44] LABS: Basophils % (A) 0 %; Eosinophils # (A) 0.3 k/uL (0-0.7); Eosinophils % (A) 4 %; HCT 35.3 % (34.0-46.0); HGB 11.6 gm/dL (11.4-16.0); Lymphocytes # (A) 1.4 k/uL (1.0-4.8); Lymphocytes % (A) 15 %; MCHC 32.9 g/dL (31.0-37.0); MCV 94.4 fL (80.0-100.0); Mean Platelet Volume 7.9; Monocytes # (A) 0.4 k/uL (0-1.0); Monocytes % (A) 4 %; Neutrophils # (A) 7.2 k/uL (1.3-7.7); Neutrophils % (A) 75 %; Platelet Count 139 k/uL (150-450); RBC 3.74 m/uL (3.80-5.40); WBC 9.5 k/uL (3.8-10.6)
[2018-08-27 07:50] LABS: Albumin 4.1 g/dL (3.5-5.0); Calcium 9.5 mg/dL (8.4-10.2); Total Bilirubin 0.6 mg/dL (0.2-1.3)
[2018-08-27 07:57] LABS: Magnesium 1.9 mg/dL (1.6-2.3); Potassium 4.9 mmol/L (3.5-5.1)
--- NOTE | 2018-08-27 08:33 | CT ---
EXAMINATION TYPE: CT brain cspine wo con DATE OF EXAM: 08/27/2018 COMPARISON: Prior exam 12/16/2017 HISTORY: Fall CT DLP: 1461.7 mGycm Automated exposure control for dose reduction was used. TECHNIQUE: CT scan of the head and cervical spine are performed without contrast. FINDINGS: There is an underlying spinal curvature. There is no acute intracranial hemorrhage, mass ef fect, or midline shift identified. The ventricles and sulci are within normal limits in size. The g lobes are intact and the visualized sinuses are clear. White matter demyelination with additional are as of low-attenuation in the basal ganglia, cortical atrophy are again noted. Cervical spine is visualized in its entirety from C1 through upper thoracic levels and demonstrates s atisfactory alignment without evidence of acute fracture or dislocation. There is a fracture at T6 w hich is stable. Loss of height is present at T5 centrally of approximately 75% of indeterminate age w ithout significant retropulsion, there is vertebroplasty present at T7 Prevertebral soft tissue appea rs within normal limits. The C1-C2 articulation is unremarkable. Nondisplaced fracture of the medial right clavicle is present indeterminate age. There are extensive coronary artery calcifications. There is evidence of old granulomatous disease. P rominence of pulmonary artery may represent pulmonary hypertension. Abnormal density seen along the r ight middle lobe was noted on prior CT 11/01/2016 and may represent scarring. IMPRESSION: 1. There is no acute fracture or dislocation evident in the cervical spine. T5 osteoporotic compressi on fracture, post vertebroplasty change T7. Medial right clavicular fracture 2. No acute intracranial hemorrhage, mass effect, or midline shift is seen. Additional findings above .
[2018-08-27 08:50] LABS: INR 0.9 (<1.2); Partial Thromboplastin Time 23.2 sec (22.0-30.0); Prothrombin Time 10.1 sec (9.0-12.0)
[2018-08-27 09:01] LABS: Appearance,Urine Clear (Clear); Bacteria,Urine Few /hpf; Bilirubin,Urine Negative (Negative); Blood,Urine Negative (Negative); Color,Urine Light Yellow; Glucose,Urine (UA) Negative (Negative); Ketones,Urine Negative (Negative); Leukocyte Esterase,Urine Moderate (Negative); Mucus,Urine Rare /hpf; Nitrite,Urine Negative (Negative); PH, Urine 6.5 (5.0-8.0); Protein,Urine Negative (Negative); RBC,Urine 2 /hpf (0-5); Specific Gravity,Urine 1.012 (1.001-1.035); Urobilinogen,Urine <2.0 mg/dL (<2.0); WBC,Urine 26 /hpf (0-5)
--- NOTE | 2018-08-27 09:17 | XR ---
EXAMINATION TYPE: XR chest 1V DATE OF EXAM: 08/27/2018 COMPARISON: April 2017 HISTORY: Chest pain TECHNIQUE: Single frontal view of the chest is obtained. FINDINGS: Chronic right hemidiaphragm elevation is seen. Right midlung atelectasis is also chronic. Interstitial prominence is unchanged. Tortuosity of the descending thoracic aorta is again noted. Tho racic compression deformities and generalized osseous demineralization are also present unchanged fro m the prior. Cardiomediastinal silhouette is upper limits of normal. IMPRESSION: Chronic findings with no acute cardiopulmonary process.
--- NOTE | 2018-08-27 09:20 | XR ---
EXAMINATION TYPE: XR humerus RT DATE OF EXAM: 08/27/2018 CLINICAL HISTORY: Fall with right humeral pain TECHNIQUE: Two views of the right humerus are obtained. COMPARISON: None. FINDINGS: There is a displaced foreshortened impaction fracture of the humeral surgical neck with com minution extending into the greater tuberosity. There is overlying soft tissue swelling present. Diff use osseous demineralization is seen. No dislocation of the right humerus is seen. The elbow joint al so appears to maintain alignment. Acromioclavicular joint spaces maintained with mild degenerative ch anges. IMPRESSION: Acute comminuted impaction fracture of the surgical neck of the right humerus with fractu re extending into the greater tuberosity and therefore suspicion for rotator cuff and/or biceps tendo n injury.
[2018-08-27] MEDS ORDERED: cefTRIAXone IN SWFI 1,000 MG/10 ML SYRINGE IVP STA (09:22)
--- NOTE | 2018-08-27 11:25 | XR ---
EXAMINATION TYPE: XR Hip RT and AP Pelvis DATE OF EXAM: 08/27/2018 COMPARISON: 12/16/2017 HISTORY: Pelvic pain TECHNIQUE: A single AP view of the pelvis is obtained. Two views of the right hip are obtained. FINDINGS: There is no disruption of the iliopectineal line relating to acetabular fracture that is di splaced involving the anterior column and anterior wall. There are healed fracture deformities of the superior pubic ramus and inferior pubic ramus on the right as well as of the lesser trochanter. Prio r right femoral neck fracture is fixated by a cephalomedullary jordana and intertrochanteric jordana. Compression deformities are seen with vertebral plasty change of the lower thoracic spine with diffus e osseous demineralization. Prior ventral hernia repair is also noted. No dilated overlying bowel. IMPRESSION: 1. Acute right acetabular anterior column and anterior wall displaced fracture. 2. Old healed fracture deformities of the superior pubic ramus, inferior pubic ramus, lesser trochant er and right femoral neck.
--- NOTE | 2018-08-27 13:03 | CT ---
EXAMINATION TYPE: CT hip RT wo con DATE OF EXAM: 08/27/2018 COMPARISON: X-ray 08/27/2018, CT pelvis 03/01/2018 HISTORY: Fall, Rt hip pain CT DLP: 485 mGycm Automated exposure control for dose reduction was used. FINDINGS: There is a displaced fracture through the acetabulum. There is involvement of the anterior, the aceta bulum. There is adjacent soft tissue edema or hematoma. There are deformities of the superior and inferior pubic rami compatible fracture which appear more c hronic and were seen in the prior CT scan of 03/01/2018. Postsurgical change involving the right femur noted. Chronic appearing deformity and evidence of prev ious fracture involving the femoral neck and lesser trochanter noted. Right-sided ostomy noted. IMPRESSION: COMMINUTED INTRA-ARTICULAR FRACTURE OF THE ACETABULUM WITH DISPLACEMENT AND ADJACENT SOFT TISSUE MONTRELL EULA OR EDEMA. COULD NOT EXCLUDE A SMALL AMOUNT OF HEMATOMA ALONG THE RIGHT PELVIC SIDEWALL. CHRONIC FRACTURES INVOLVING THE PUBIC RAMI.
[2018-08-27 13:24] VITALS: BP 124/63; PULSE 90; RESP 24
== END 2018-08-27 13:32 | disposition other institution (70) ==
LOC: EC 06:45
DX: S42.211A Unspecified displaced fracture of surgical neck of right humerus, initial encounter for closed fracture (principal); S32.591A Other specified fracture of right pubis, initial encounter for closed fracture; S32.431A Displaced fracture of anterior column [iliopubic] of right acetabulum, initial encounter for closed fracture; N39.0 Urinary tract infection, site not specified; J45.909 Unspecified asthma, uncomplicated; I25.10 Atherosclerotic heart disease of native coronary artery without angina pectoris; I10 Essential (primary) hypertension; M19.90 Unspecified osteoarthritis, unspecified site; G47.30 Sleep apnea, unspecified; Z99.89 Dependence on other enabling machines and devices; Z85.048 Personal history of other malignant neoplasm of rectum, rectosigmoid junction, and anus; Z86.14 Personal history of Methicillin resistant Staphylococcus aureus infection; Z95.818 Presence of other cardiac implants and grafts; Z79.891 Long term (current) use of opiate analgesic; Z79.899 Other long term (current) drug therapy; Z88.6 Allergy status to analgesic agent; Z88.5 Allergy status to narcotic agent; Z88.1 Allergy status to other antibiotic agents; Z91.011 Allergy to milk products; Z88.0 Allergy status to penicillin; Z88.8 Allergy status to other drugs, medicaments and biological substances; W19.XXXA Unspecified fall, initial encounter; Y92.009 Unspecified place in unspecified non-institutional (private) residence as the place of occurrence of the external cause
CPT/HCPCS: 99285; 96374; 96375 ×2; 96361; 36415; 93005; 80053; 83735; 84484; 85025; 85610; 85730; 81001; 73502; 73060; 71045; 72125; 70450; 73700; J2405; J0696; J1170

== ENCOUNTER 2018-09-19 14:37 | Inpatient (IN) | payer MEDICARE ==
[2018-09-19] MEDS ORDERED: SODIUM CHLORIDE 0.9% 500 ML 500 ML IV STA (15:09)
--- NOTE | 2018-09-19 15:35 | ED ---
Syncope HPI - General Chief Complaint: Syncope Stated Complaint: SYNCOPE Time Seen by Provider: 09/19/18 14:45 Source: patient, family, EMS Mode of arrival: EMS Limitations: altered mental status, physical limitation - History of Present Illness Initial Comments: Patient is an 83 year old female who presents to the emergency department from [facility]. The patient resides there for rehab. She did sustain a fall 3 weeks ago for which she had a right clavicular, right humeral and right pubic fracture. Today her was visiting her at the facility. The patient was eating breakfast when she went unresponsive. There was no choking episode. tried to arouse her however she was unresponsive for "5 minutes". She did have food in her mouth and this was suctioned. No history of syncopal episodes in the past. No seizure-like activity. There was no post ictal phase. The patient did not bite her tongue and there was no incontinence. The facility measured the patient have a blood pressure in the 60s systolic. EMS was called and upon arrival the patient had a normal blood pressure and was mentating appropriately. She denies having any chest pain or shortness of breath prior to the incident. She states that she felt foggy this morning however had no other complaints. She denies any headache, visual changes, nausea, vomiting. No recent fevers or chills. She denies any abdominal pain or changes in her bowel or bladder habits. Patient denies any diarrhea, constipation, melanotic stools or hematochezia. no changes in her urination. She denies a history of DVT or PE. Patient is not ambulatory at this time due to her recent fracture. She denies having any unilateral numbess or weakness, ripping or tearing sensation to her back. No recent medication changes. The patient had the episode while sitting in a chair and there was no trauma after the syncope. There are no other alleviating, precipitating or modifying factors - Related Data Home Medications Medication Instructions Recorded Confirmed OLANZapine [ZyPREXA] 10 mg PO HS 08/29/15 09/19/18 Albuterol Inhaler [Ventolin Hfa 1 - 2 puff INHALATION RT-Q6H PRN 06/20/17 09/19/18 Inhaler] Calcium Carb-Vit D 250Mg-125Un 1 tab PO BID 08/03/17 09/19/18 [Oscal 250+D] Tolterodine ER [Detrol LA] 2 mg PO HS@2100 01/10/18 09/19/18 Escitalopram [Lexapro] 10 mg PO DAILY 08/27/18 09/19/18 Acetaminophen Tab [Tylenol Tab] 650 mg PO Q4H PRN 09/19/18 09/19/18 Artificial Tears-Hypromellose 1 drops BOTH EYES DAILY PRN 09/19/18 09/19/18 [Artificial Tear Drops] Ferrous Sulfate 308 mg PO BID 09/19/18 09/19/18 Gabapentin [Neurontin] 300 mg PO BID 09/19/18 09/19/18 Lisinopril [Zestril] 2.5 mg PO DAILY 09/19/18 09/19/18 Metoprolol Succinate [Kapspargo 50 mg PO DAILY 09/19/18 09/19/18 Sprinkle] Omeprazole 20 mg PO DAILY 09/19/18 09/19/18 Ondansetron [Zofran] 4 mg PO Q6H PRN 09/19/18 09/19/18 Pilocarpine HCl [Salagen] 7.5 mg PO BID 09/19/18 09/19/18 Sennosides/Docusate Sodium [Dok 1 tab PO BID 09/19/18 09/19/18 Plus Tablet] oxyCODONE HCL/ACETAMINOPHEN 1 tab PO Q12H PRN 09/19/18 09/19/18 [Percocet 2.5-325 mg] Previous Rx's Medication Instructions Recorded ALPRAZolam [Xanax] 0.25 mg PO BID PRN #6 tablet 01/13/18 Allergies Allergy/AdvReac Type Severity Reaction Status Date / Time aspirin Allergy Anaphylaxis Verified 09/19/18 16:20 caffeine Allergy CREATES Verified 09/19/18 16:20 TOO MUCH STOMACH ACID celecoxib [From Celebrex] Allergy Rash/Hives Verified 09/19/18 16:20 codeine Allergy Anaphylaxis Verified 09/19/18 16:20 doxycycline Allergy Unknown Verified 09/19/18 16:20 hydrocodone bitartrate Allergy Unknown Verified 09/19/18 16:20 [From [place]am[place]] milk Allergy Rash/Hives Verified 09/19/18 16:20 Penicillins Allergy Rash/Hives Verified 09/19/18 16:20 rofecoxib [From Vioxx] Allergy Rash/Hives Verified 09/19/18 16:20 clarithromycin [From Biaxin] AdvReac Nausea Verified 09/19/18 16:20 clindamycin AdvReac Nausea Verified 09/19/18 16:20 levofloxacin [From Levaquin] AdvReac Nausea Verified 09/19/18 16:20 Morpholine Analogues AdvReac Confusion Verified 09/19/18 16:20 ranitidine HCl [From Zantac] AdvReac Rash/Hives Verified 09/19/18 16:20 Review of Systems ROS Statement: Those systems with pertinent positive or pertinent negative responses have been documented in the HPI. ROS Other: All systems not noted in ROS Statement are negative. Past Medical History Past Medical History: Asthma, Coronary Artery Disease (CAD), Cancer, Hyperte nsion, Memory Impairment, Musculoskeletal Disorder, Osteoarthritis (OA), Sleep Apnea/CPAP/BIPAP Additional Past Medical History / Comment(s): Sjogren syndrome, RECTAL CANCER WITH COLOSTOMY , anemia, OVER ACTIVE BLADDER, hx. L4 fracture, BRONCH WASHING WAS POSITIVE FOR KLEBSIELLA PNUEMONAE., BACK PAIN. FREQUENT FALLS. History of Any Multi-Drug Resistant Organisms: ESBL, MRSA Date of last positivie culture/infection: 08/26/17 ESBL Klebsiella, MRSA 01/18/18 MDRO Source:: Urine Past Surgical History: Adenoidectomy, Appendectomy, Back Surgery, Bowel Resection, Breast Surgery, Heart Catheterization, Hysterectomy, Tonsillectomy, Uterine Ablation Additional Past Surgical History / Comment(s): PERMANENT COLOSTOMY. throat surgery removed uvula,L3-L4 two fractured vertebrae, sofi cataracts, kyphoplasty L4, PICCLINE IN MAY FOR ABX(PNE) SINCE REMOVED. PICC LINE PLACEMENT, COLONOSCOPY, EGD, UTI 08/2017 Past Anesthesia/Blood Transfusion Reactions: No Reported Reaction Additional Past Anesthesia/Blood Transfusion Reaction / Comment(s): HX OF BLOOD TRANSFUSION Past Psychological History: No Psychological Hx Reported Smoking Status: Never smoker Past Alcohol Use History: None Reported Past Drug Use History: None Reported - Past Family History Mother History Unknown: Yes Family Medical History: Dialysis, Renal Disease Brother(s) History Unknown: Yes Family Medical History: No Reported History Sister(s) History Unknown: Yes Family Medical History: No Reported History Additional Family Medical History / Comment(s): Parkinsons Father Family Medical History: Cancer, CVA/TIA Additional Family Medical History / Comment(s): 3 out of 4 siblings dx. autoimmune disease General Exam Limitations: physical limitation General appearance: alert, in no apparent distress, other (The patient is a poor historian) Head exam: Present: atraumatic, normocephalic, normal inspection Eye exam: Present: normal appearance, PERRL, EOMI. Absent: scleral icterus, conjunctival injection, periorbital swelling ENT exam: Present: normal exam, mucous membranes moist Neck exam: Present: normal inspection. Absent: tenderness, meningismus, lymphadenopathy Respiratory exam: Present: normal lung sounds bilaterally. Absent: respiratory distress, wheezes, rales, rhonchi, stridor Cardiovascular Exam: Present: regular rate, normal rhythm, normal heart sounds. Absent: systolic murmur, diastolic murmur, rubs, gallop, clicks GI/Abdominal exam: Present: soft, normal bowel sounds, other (the patient has a colostomy bag to the right side of her abdomen). Absent: distended, tenderness, guarding, rebound, rigid Extremities exam: Present: normal inspection, full ROM, normal capillary refill. Absent: tenderness, pedal edema, joint swelling, calf tenderness Back exam: Present: normal inspection Neurological exam: Present: alert, oriented X3, CN II-XII intact, other (the patient can not ambulate) Psychiatric exam: Present: normal affect, normal mood, flat affect Skin exam: Present: warm, dry, intact, normal color. Absent: rash Course Vital Signs 09/19/18 09/19/18 09/19/18 14:39 16:31 19:17 Temperature 98.1 F 98.1 F Pulse Rate 82 72 78 Respiratory 18 16 18 Rate Blood Pressure 119/60 119/63 145/80 O2 Sat by Pulse 98 98 96 Oximetry EKG Findings - EKG Comments: EKG Findings:: EKG demonstrates a sinus rhythm with a ventricular rate of 75. MS interval 182. QRS of 80 QTC of 439. No acute elevations or depressions concerning for ischemic changes. There is significant baseline artifact in leads 2-3 Medical Decision Making - Medical Decision Making The patient was placed into room 8. She is hooked to continuous pulse ox and cardiac monitoring. Initial vitals upon arrival are stable. The patient does have a blood pressure in the 110's systolic. EKG is performed which demonstrates a normal sinus rhythm. Laboratory studies were conducted. The patient does have a chest x-ray performed as well as a CT of her brain. Upon review they are discussed the patient and her at bedside. Her potassium is high and therefore I will repeat the lytes as her blood was difficult to obtain. The patient remains alert and oriented without focal neurologic deficits. I did recommend admission to the hospital for which the patient did agree. I did call and discuss the case with Dr. Freedman. She did accept admission of the patient. She would like cardio placed on consult. I also ordered an echo and an EEG. I will discontinue the patient's Imdur. She'll be continued on her metoprolol and lisinopril. The patient was placed on 50 mL of normal saline per hour. We will continue to trend the patient's troponins. The patient agreed to the plan and she was transported to the floor in stable condition - Differential Diagnosis syncope, acute hypotension, possible seizure, vasovagal syncope, arrythmia - Lab Data Result diagrams: 09/20/18 04:28 09/20/18 04:28 Lab Results 09/19/18 09/19/18 09/19/18 Range/Units 16:30 16:30 16:30 WBC 6.6 (3.8-10.6) k/uL RBC 3.11 L (3.80-5.40) m/uL Hgb 9.4 L D (11.4-16.0) gm/dL Hct 30.4 L (34.0-46.0) % MCV 97.6 (80.0-100.0) fL MCH 30.1 (25.0-35.0) pg MCHC 30.8 L (31.0-37.0) g/dL RDW 14.4 (11.5-15.5) % Plt Count 178 (150-450) k/uL Neutrophils % 82 % Lymphocytes % 10 % Monocytes % 5 % Eosinophils % 2 % Basophils % 0 % Neutrophils # 5.4 (1.3-7.7) k/uL Lymphocytes # 0.6 L (1.0-4.8) k/uL Monocytes # 0.3 (0-1.0) k/uL Eosinophils # 0.1 (0-0.7) k/uL Basophils # 0.0 (0-0.2) k/uL Hypochromasia Marked PT 10.0 (9.0-12.0) sec INR 0.9 (<1.2) APTT 23.1 (22.0-30.0) sec Sodium 132 L (137-145) mmol/L Potassium 5.8 H (3.5-5.1) mmol/L Chloride 99 (98-107) mmol/L Carbon Dioxide 24 (22-30) mmol/L Anion Gap 9 mmol/L BUN 28 H (7-17) mg/dL Creatinine 0.81 (0.52-1.04) mg/dL Est GFR (CKD-EPI)AfAm 78 (>60 ml/min/1.73 sqM) Est GFR (CKD-EPI)NonAf 67 (>60 ml/min/1.73 sqM) Glucose 98 (74-99) mg/dL Calcium 9.1 (8.4-10.2) mg/dL Total Bilirubin 0.3 (0.2-1.3) mg/dL AST 21 (14-36) U/L ALT 13 (9-52) U/L Alkaline Phosphatase 130 H (38-126) U/L Troponin I (0.000-0.034) ng/mL Total Protein 6.0 L (6.3-8.2) g/dL Albumin 3.5 (3.5-5.0) g/dL Urine Color Urine Appearance (Clear) Urine pH (5.0-8.0) Ur Specific [place] (1.001-1.035) Urine Protein (Negative) Urine Glucose (UA) (Negative) Urine Ketones (Negative) Urine Blood (Negative) Urine Nitrite (Negative) Urine Bilirubin (Negative) Urine Urobilinogen (<2.0) mg/dL Ur Leukocyte Esterase (Negative) Urine RBC (0-5) /hpf Urine WBC (0-5) /hpf Ur Squamous Epith Cells (0-4) /hpf Hyaline Casts (0-2) /lpf Urine Mucus (None) /hpf 09/19/18 09/19/18 Range/Units 16:30 16:40 WBC (3.8-10.6) k/uL RBC (3.80-5.40) m/uL Hgb (11.4-16.0) gm/dL Hct (34.0-46.0) % MCV (80.0-100.0) fL MCH (25.0-35.0) pg MCHC (31.0-37.0) g/dL RDW (11.5-15.5) % Plt Count (150-450) k/uL Neutrophils % % Lymphocytes % % Monocytes % % Eosinophils % % Basophils % % Neutrophils # (1.3-7.7) k/uL Lymphocytes # (1.0-4.8) k/uL Monocytes # (0-1.0) k/uL Eosinophils # (0-0.7) k/uL Basophils # (0-0.2) k/uL Hypochromasia PT (9.0-12.0) sec INR (<1.2) APTT (22.0-30.0) sec Sodium (137-145) mmol/L Potassium (3.5-5.1) mmol/L Chloride (98-107) mmol/L Carbon Dioxide (22-30) mmol/L Anion Gap mmol/L BUN (7-17) mg/dL Creatinine (0.52-1.04) mg/dL Est GFR (CKD-EPI)AfAm (>60 ml/min/1.73 sqM) Est GFR (CKD-EPI)NonAf (>60 ml/min/1.73 sqM) Glucose (74-99) mg/dL Calcium (8.4-10.2) mg/dL Total Bilirubin (0.2-1.3) mg/dL AST (14-36) U/L ALT (9-52) U/L Alkaline Phosphatase (38-126) U/L Troponin I <0.012 (0.000-0.034) ng/mL Total Protein (6.3-8.2) g/dL Albumin (3.5-5.0) g/dL Urine Color Yellow Urine Appearance Clear (Clear) Urine pH 6.0 (5.0-8.0) Ur Specific [place] 1.012 (1.001-1.035) Urine Protein Negative (Negative) Urine Glucose (UA) Negative (Negative) Urine Ketones Negative (Negative) Urine Blood Negative (Negative) Urine Nitrite Negative (Negative) Urine Bilirubin Negative (Negative) Urine Urobilinogen <2.0 (<2.0) mg/dL Ur Leukocyte Esterase Small H (Negative) Urine RBC 1 (0-5) /hpf Urine WBC 5 (0-5) /hpf Ur Squamous Epith Cells <1 (0-4) /hpf Hyaline Casts 6 H (0-2) /lpf Urine Mucus Rare H (None) /hpf Disposition Clinical Impression: Syncope Disposition: ADMITTED IP TO THIS HOSP Condition: Stable Is patient prescribed a controlled substance at d/c from ED?: No Time of Disposition: 17:00 Decision to Admit Reason: Admit from EC Decision Date: 09/19/18 Decision Time: 17:00
--- NOTE | 2018-09-19 16:21 | XR ---
EXAMINATION TYPE: XR chest 2V DATE OF EXAM: 09/19/2018 COMPARISON: 08/27/2018 HISTORY: 83-year-old female syncope and fall TECHNIQUE: AP and lateral views FINDINGS: Levoconvex curvature and marked essentially kyphosis with multiple vertebroplasty changes. Age indete rminate fracture deformity surgical neck of the proximal right humerus. Some fracture deformity seems to have an present on 08/27/2018. Heart normal size. Elongation/ectasia of the thoracic aorta. Elevated right hemidiaphragm unchanged. Dense of atelectasis or scarring at the right midlung. No consolidation or pleural effusion seen. IMPRESSION: 1. Similar elevation right hemidiaphragm with bands of atelectasis or scarring at the right base. No definite acute cardiac pulmonary process. 2. Age-indeterminate fracture of the proximal right humerus. Some fracture deformity seems to have be en present on 08/27/2018 as well. 3. Multilevel vertebral compression deformities with some levels of vertebroplasty change and accentu ated kyphosis.
[2018-09-19 16:42] LABS: Basophils % (A) 0 %; Eosinophils # (A) 0.1 k/uL (0-0.7); Eosinophils % (A) 2 %; HCT 30.4 % (34.0-46.0); Hypochromasia Marked; Lymphocytes # (A) 0.6 k/uL (1.0-4.8); Lymphocytes % (A) 10 %; MCH 30.1 pg (25.0-35.0); MCHC 30.8 g/dL (31.0-37.0); MCV 97.6 fL (80.0-100.0); Mean Platelet Volume 7.5; Monocytes # (A) 0.3 k/uL (0-1.0); Monocytes % (A) 5 %; Neutrophils # (A) 5.4 k/uL (1.3-7.7); Neutrophils % (A) 82 %; Platelet Count 178 k/uL (150-450); RBC 3.11 m/uL (3.80-5.40); RDW 14.4 % (11.5-15.5); WBC 6.6 k/uL (3.8-10.6)
[2018-09-19 16:47] LABS: HGB 9.4 gm/dL (11.4-16.0); INR 0.9 (<1.2); Partial Thromboplastin Time 23.1 sec (22.0-30.0)
[2018-09-19 16:58] LABS: Albumin 3.5 g/dL (3.5-5.0); Calcium 9.1 mg/dL (8.4-10.2); Potassium 5.8 mmol/L (3.5-5.1); Total Bilirubin 0.3 mg/dL (0.2-1.3)
[2018-09-19 17:09] LABS: Appearance,Urine Clear (Clear); Bilirubin,Urine Negative (Negative); Blood,Urine Negative (Negative); Color,Urine Yellow; Glucose,Urine (UA) Negative (Negative); Hyaline Casts,Urine 6 /lpf (0-2); Ketones,Urine Negative (Negative); Leukocyte Esterase,Urine Small (Negative); Mucus,Urine Rare /hpf; Nitrite,Urine Negative (Negative); Protein,Urine Negative (Negative); RBC,Urine 1 /hpf (0-5); Specific Gravity,Urine 1.012 (1.001-1.035); Squamous Epithelial Cell,Urine <1 /hpf (0-4); Urobilinogen,Urine <2.0 mg/dL (<2.0); WBC,Urine 5 /hpf (0-5)
--- NOTE | 2018-09-19 18:00 | CT ---
EXAMINATION TYPE: CT brain ermiasine wo con DATE OF EXAM: 09/19/2018 COMPARISON: 08/27/2018 HISTORY: 83-year-old female Syncopal episode. CT DLP: 1217.8 mGycm Automated exposure control for dose reduction was used. Technique: Examination of the head was done in axial plane without intravenous contrast. Coronal and sagittal reconstructions performed. CT of the cervical spine was obtained in axial plane without intravenous injection of contrast mater ial. Coronal and sagittal reformatted images were obtained from the axial views for evaluation of f ractures, spinal alignment and canal. FINDINGS: Head: There is no evidence of acute intracranial hemorrhage, acute ischemic changes, mass, mass-effect, or extra-axial fluid collection. There is no effacement of cerebral sulci or basal subarachnoid cister ns. There is no hydrocephalus. There is no midline shift. Marvin-white matter distinction is preserv ed. There is mild generalized atrophy and moderate patchy white matter hypodensities in both cerebral hem ispheres. Paranasal sinuses and mastoid air cells appear well-pneumatized. Orbits and globes appear intact. No calvarial fracture. Cervical spine: No craniocervical junction anomaly, predental space widening, or prevertebral soft tissue swelling. There is preserved alignment of the cervical spine though an accentuated cervical process. Scattered facet and uncovertebral joint arthropathy is present. Degenerative changes of the C1 dens articulatio n. Inferior endplate deformity of C6 is unchanged from 08/27/2018. Vertebral compression fracture of T5 is unchanged. No acute fracture is seen of the cervical spine. Mildly impacted fracture of the right clavicular head appears to be subacute with some subtle periost eal callus. Sagittal and coronal reformatted images confirm above findings. COMBINED IMPRESSION: 1. No acute intracranial abnormality seen. Mild generalized atrophy and changes of chronic small vess el ischemic disease. 2. Old vertebral compression fracture of T5 and chronic inferior endplate fracture of C6. No acute ce rvical spine fracture seen. 3. Mildly impacted fracture of the right clavicular head appears to be subacute with some healing per iosteal callus demonstrated. Clinically correlate.
[2018-09-19] MEDS ORDERED: NALOXONE 0.4 MG/ML 1 ML VIAL IV PRN (18:34)
[2018-09-19] MEDS ORDERED: OXYCODONE HCL PO PRN (18:37)
[2018-09-19] MEDS ORDERED: ACETAMINOPHEN TAB 325 MG TAB PO PRN (18:37)
[2018-09-19] MEDS ORDERED: ACETAMINOPHEN PO PRN (18:37)
[2018-09-19] MEDS ORDERED: ONDANSETRON 4 MG TAB PO PRN (18:37)
[2018-09-19] MEDS ORDERED: SODIUM CHLORIDE 0.9% 1,000 ML IV SCH (18:45)
[2018-09-19 20:20] LABS: Potassium 5.3 mmol/L (3.5-5.1)
[2018-09-19] MEDS: oxyCODONE-APAP 5-325MG 1 EACH TAB PO PRN (22:15)
[2018-09-19] MEDS: GABAPENTIN 300 MG CAP PO SCH (22:15)
[2018-09-19] MEDS: SENNOSIDES-DOCUSATE SODIUM 1 EACH TAB PO SCH (22:16)
[2018-09-19] MEDS: OXYBUTYNIN XL 5 MG TAB.ER.24 PO SCH (22:17)
[2018-09-19] MEDS: OLANZapine 10 MG TAB PO SCH (22:17)
[2018-09-19] MEDS: PILOCARPINE 5 MG TAB PO SCH (22:17)
[2018-09-20 04:46] LABS: Basophils % (A) 0 %; Eosinophils # (A) 0.2 k/uL (0-0.7); Eosinophils % (A) 4 %; HCT 29.5 % (34.0-46.0); HGB 9.3 gm/dL (11.4-16.0); Hypochromasia Moderate; Lymphocytes # (A) 0.9 k/uL (1.0-4.8); Lymphocytes % (A) 20 %; MCH 30.5 pg (25.0-35.0); MCHC 31.6 g/dL (31.0-37.0); MCV 96.6 fL (80.0-100.0); Mean Platelet Volume 7.5; Monocytes # (A) 0.3 k/uL (0-1.0); Monocytes % (A) 6 %; Neutrophils % (A) 67 %; Platelet Count 185 k/uL (150-450); RBC 3.06 m/uL (3.80-5.40); RDW 14.3 % (11.5-15.5); WBC 4.5 k/uL (3.8-10.6)
[2018-09-20 04:55] LABS: Calcium 8.4 mg/dL (8.4-10.2); Potassium 4.7 mmol/L (3.5-5.1)
--- NOTE | 2018-09-20 11:45 | ECHOF ---
Referral Reason:syncope MEASUREMENTS -------- HEIGHT: 162.6 cm WEIGHT: 54.0 kg BP: 123/72 RVIDd: 2.7 cm (< 3.3) IVSd: 1.3 cm (0.6 - 1.1) LVIDd: 3.2 cm (3.9 - 5.3) LVPWd: 1.3 cm (0.6 - 1.1) IVSs: 1.7 cm LVIDs: 1.7 cm LVPWs: 1.5 cm LAESV Index (A-L): 32.14 ml/m Ao Diam: 2.5 cm (2.0 - 3.7) AV Cusp: 1.8 cm (1.5 - 2.6) LA Diam: 4.3 cm (2.7 - 3.8) MV EXCURSION: 12.842 mm (> 18.000) MV EF SLOPE: 144 mm/s (70 - 150) EPSS: 0.7 cm MV E Len: 0.68 m/s MV DecT: 160 ms MV A Len: 0.88 m/s MV E/A Ratio: 0.77 AR PHT: 169 ms RAP: 5.00 mmHg RVSP: 23.58 mmHg FINDINGS -------- Sinus rhythm. This was a technically good study. The left ventricular size is normal. There is mild concentric left ventricular hypertrophy. Overa ll left ventricular systolic function is normal with, an EF between 55 - 60 %. The diastolic fillin g pattern is normal for the age of the patient 9.72. The right ventricle is normal in size. The left atrium is mildly dilated. LA is midly dilated 29-33ml/m2. The right atrial size is normal. Aortic valve is trileaflet and is mildly thickened. Trace amount of aortic regurgitation. The mitral valve is normal. The mitral valve leaflets are mildly thickened. Mild mitral regurgita tion is present. The tricuspid valve appears structurally normal. Mild tricuspid regurgitation present. Right vent ricular systolic pressure is normal at < 35 mmHg. There is no pulmonic regurgitation present. The aortic root size is normal. IVC Not well visulized. There is no pericardial effusion. CONCLUSIONS -------- 1. Sinus rhythm. 2. This was a technically good study. 3. The left ventricular size is normal. 4. There is mild concentric left ventricular hypertrophy. 5. Overall left ventricular systolic function is normal with, an EF between 55 - 60 %. 6. The diastolic filling pattern is normal for the age of the patient 9.72 7. The right ventricle is normal in size. 8. The left atrium is mildly dilated. 9. LA is midly dilated 29-33ml/m2. 10. The right atrial size is normal. 11. Aortic valve is trileaflet and is mildly thickened. 12. Trace amount of aortic regurgitation. 13. The mitral valve is normal. 14. The mitral valve leaflets are mildly thickened. 15. Mild mitral regurgitation is present. 16. The tricuspid valve appears structurally normal. 17. Mild tricuspid regurgitation present. 18. Right ventricular systolic pressure is normal at < 35 mmHg. 19. There is no pulmonic regurgitation present. 20. The aortic root size is normal. 21. IVC Not well visulized. 22. There is no pericardial effusion. MEAT LUGGER: Poppy Herbert RDCS
[2018-09-20] MEDS: LISINOPRIL 2.5 MG TAB PO SCH (12:29)
[2018-09-20] MEDS: PILOCARPINE 5 MG TAB PO SCH ×2 (12:29→21:12)
[2018-09-20] MEDS: SENNOSIDES-DOCUSATE SODIUM 1 EACH TAB PO SCH ×2 (12:29→20:57)
[2018-09-20] MEDS: GABAPENTIN 300 MG CAP PO SCH ×2 (12:29→20:56)
[2018-09-20] MEDS: METOPROLOL SUCCINATE (ER) 50 MG TAB.ER.24H PO SCH (12:29)
[2018-09-20] MEDS: ESCITALOPRAM 10 MG TAB PO SCH (12:35)
--- NOTE | 2018-09-20 13:51 | P.CRDCN ---
History of Present Illness History of present illness: This is a pleasant 83-year-old female past medical history significant for nonischemic cardiomyopathy, hypertension, obstructive sleep apnea, rectal cancer, peripheral vascular disease and recent fall. She follows in the office with Dr. Pulido. We have been assisting her in consultation secondary to a syncopal spell. Patient is somewhat of a poor historian surrounding the events and information is obtained from the medical record and nursing staff. She is currently residing at [facility] for rehab after suffering a fall with a right clavicular, right humeral and right pubic fracture. Her was visiting her at the facility and they were having breakfast when she apparently went unresponsive. The patient states she recalls hearing voices and she was attempting to respond however she could not get the words out. She is unsure if there was actual loss of consciousness. She states she couldn't really hear what was going on through the entire event but could not respond appropriately. Blood pressure at [facility] was low with systolic in the 60's. Once EMS arrived blood pressure had normalized. She denies having any symptoms of chest discomfort, shortness of breath or palpitations surrounding this event. There was no nausea, vomiting, diaphoresis or loss of bowel/bladder control. She is currently prescribed percocet for pain and states she had been given one that morning before breakfast. She is seen and examined resting comfortably lying flat in bed in no acute distress. EKG reveals sinus mechanism with poor R-wave progression. Chest x-ray is negative for an acute cardiopulmonary process. Evidence of atelectasis versus scarring at the right lung base. Laboratory data reviewed, WBC 4.5, hemoglobin 9.3, platelets 185, d-dimer 3.75, sodium 133, potassium 4.7, creatinine 0.88, cardiac enzymes negative 3, proBNP 726. Current cardiac medications include lisinopril 2.5 mg daily, imdur 60 mg daily and metoprolol succinate sprinkles 50 mg daily. Echocardiogram obtained on this admission reveals preserved LV systolic function with EF 55-60%, mild MR and mild TR. At the time of my exam: CONSTITUTIONAL: Denies fever. Denies chills. EYES: Denies blurred vision. Denies vision changes. Denies eye pain. EARS, NOSE, MOUTH & THROAT: Denies headache. Denies sore throat. Denies ear pain. CARDIOVASCULAR: Denies chest pain. Denies shortness of breath. Denies orthopnea. Denies PND. Denies palpitations. RESPIRATORY: Denies cough. GASTROINTESTINAL: Denies abdominal pain. Denies diarrhea. Denies constipation. Denies nausea. Denies vomiting. MUSCULOSKELETAL: Denies myalgias. INTEGUMENTARY: Denies pruitis. Denies rash. NEUROLOGIC: Denies numbness. Denies tingling. Denies weakness. PSYCHIATRIC: Denies anxiety. Denies depression. ENDOCRINE: Denies fatigue. Denies weight change. Denies polydipsia. Denies polyurina. GENITOURINARY: Denies burning, hematuria or urgency with micturation. HEMATOLOGIC: Denies history of anemia. Denies bleeding. Blood pressure 181/80 heart rate 85 afebrile maintaining oxygen saturation on room air GENERAL: This is a 83-year-old female in no apparent distress at the time of my examination. HEENT: Head is atraumatic, normocephalic. Pupils are equal, round. Sclerae anicteric. Conjunctivae are clear. Mucous membranes of the mouth are moist. Neck is supple. There is no jugular venous distention. No carotid bruit is heard. LUNGS: Clear to auscultation no wheezes, rales or rhonchi. No chest wall tenderness is noted on palpation or with deep breathing. HEART: Regular rate and rhythm with systolic ejection murmur at the left sternal border, no rubs or gallops. S1 and S2 heard. ABDOMEN: Soft, nontender. Colostomy bag noted. EXTREMITIES: No evidence of peripheral edema and no calf tenderness noted. VASCULAR: Radial and dorsalis pedis pulses palpated, no evidence of clubbing. NEUROLOGIC: Patient is awake, alert and oriented x3. ASSESSMENT Syncope, episode of unresponsiveness yesterday after breakfast History of non-ischemic cardiomyopathy. LV has improved on recent echo Hypertension History of recent fall currently undergoing rehab at [facility] PLAN Check d-dimer and obtain CTA chest if elevated. Echocardiogram has been obtained and reviewed. No acute arrhythmia noted thus far on telemetry tracings. Discontinue imdur. Apply event monitor for further evaluation of possibly arrhythmia. Episode possibly related to percocet. Follow up with Dr. Pulido upon discharge. Thank you kindly for this consultation. Nurse Practitioner note has been reviewed, I agree with a documented findings and plan of care. Patient was seen and examined. Past Medical History Past Medical History: Asthma, Coronary Artery Disease (CAD), Cancer, Hypertension, Memory Impairment, Musculoskeletal Disorder, Osteoarthritis (OA), Sleep Apnea/CPAP/BIPAP Additional Past Medical History / Comment(s): Sjogren syndrome, RECTAL CANCER WITH COLOSTOMY , anemia, OVER ACTIVE BLADDER, hx. L4 fracture, BRONCH WASHING WAS POSITIVE FOR KLEBSIELLA PNUEMONAE., BACK PAIN. FREQUENT FALLS. History of Any Multi-Drug Resistant Organisms: ESBL, MRSA Date of last positivie culture/infection: 08/26/17 ESBL Klebsiella, MRSA 01/18/18 MDRO Source:: Urine Past Surgical History: Adenoidectomy, Appendectomy, Back Surgery, Bowel Resection, Breast Surgery, Heart Catheterization, Hysterectomy, Tonsillectomy, Uterine Ablation Additional Past Surgical History / Comment(s): PERMANENT COLOSTOMY. throat surgery removed uvula,L3-L4 two fractured vertebrae, sofi cataracts, kyphoplasty L4, PICCLINE IN MAY FOR ABX(PNE) SINCE REMOVED. PICC LINE PLACEMENT, COLONOSCOPY, EGD, UTI 08/2017 Past Anesthesia/Blood Transfusion Reactions: No Reported Reaction Additional Past Anesthesia/Blood Transfusion Reaction / Comment(s): HX OF BLOOD TRANSFUSION Past Psychological History: No Psychological Hx Reported Smoking Status: Never smoker Past Alcohol Use History: None Reported Past Drug Use History: None Reported - Past Family History Mother History Unknown: Yes Family Medical History: Dialysis, Renal Disease Brother(s) History Unknown: Yes Family Medical History: No Reported History Sister(s) History Unknown: Yes Family Medical History: No Reported History Additional Family Medical History / Comment(s): Parkinsons Father Family Medical History: Cancer, CVA/TIA Additional Family Medical History / Comment(s): 3 out of 4 siblings dx. autoimmune disease Medications and Allergies Home Medications Medication Instructions Recorded Confirmed Type Isosorbide Mononitrate [Imdur] 60 mg PO QAM 07/29/13 09/19/18 History OLANZapine [ZyPREXA] 10 mg PO HS 08/28/09/19/18 History Albuterol Inhaler [Ventolin Hfa 1 - 2 puff INHALATION RT-Q6H PRN 06/20/17 09/19/18 History Inhaler] Calcium Carb-Vit D 250Mg-125Un 1 tab PO BID 08/03/17 09/19/18 History [Oscal 250+D] Tolterodine ER [Detrol LA] 2 mg PO HS@2100 01/10/18 09/19/18 History ALPRAZolam [Xanax] 0.25 mg PO BID PRN #6 tablet 01/13/18 09/19/18 Rx Escitalopram [Lexapro] 10 mg PO DAILY 08/27/18 09/19/18 History Acetaminophen Tab [Tylenol Tab] 650 mg PO Q4H PRN 09/19/18 09/19/18 History Artificial Tears-Hypromellose 1 drops BOTH EYES DAILY PRN 09/19/18 09/19/18 History [Artificial Tear Drops] Ferrous Sulfate 308 mg PO BID 09/19/18 09/19/18 History Gabapentin [Neurontin] 300 mg PO BID 09/19/18 09/19/18 History Lisinopril [Zestril] 2.5 mg PO DAILY 09/19/18 09/19/18 History Metoprolol Succinate [Kapspargo 50 mg PO DAILY 09/19/18 09/19/18 History Sprinkle] Omeprazole 20 mg PO DAILY 09/19/18 09/19/18 History Ondansetron [Zofran] 4 mg PO Q6H PRN 09/19/18 09/19/18 History Pilocarpine HCl [Salagen] 7.5 mg PO BID 09/19/18 09/19/18 History Sennosides/Docusate Sodium [Dok 1 tab PO BID 09/19/18 09/19/18 History Plus Tablet] oxyCODONE HCL/ACETAMINOPHEN 1 tab PO Q12H PRN 09/19/18 09/19/18 History [Percocet 2.5-325 mg] Allergies Allergy/AdvReac Type Severity Reaction Status Date / Time aspirin Allergy Anaphylaxis Verified 09/19/18 16:20 caffeine Allergy CREATES Verified 09/19/18 16:20 TOO MUCH STOMACH ACID celecoxib [From Celebrex] Allergy Rash/Hives Verified 09/19/18 16:20 codeine Allergy Anaphylaxis Verified 09/19/18 16:20 doxycycline Allergy Unknown Verified 09/19/18 16:20 hydrocodone bitartrate Allergy Unknown Verified 09/19/18 16:20 [From [place]] milk Allergy Rash/Hives Verified 09/19/18 16:20 Penicillins Allergy Rash/Hives Verified 09/19/18 16:20 rofecoxib [From Vioxx] Allergy Rash/Hives Verified 09/19/18 16:20 clarithromycin [From Biaxin] AdvReac Nausea Verified 09/19/18 16:20 clindamycin AdvReac Nausea Verified 09/19/18 16:20 levofloxacin [From Levaquin] AdvReac Nausea Verified 09/19/18 16:20 Morpholine Analogues AdvReac Confusion Verified 09/19/18 16:20 ranitidine HCl [From Zantac] AdvReac Rash/Hives Verified 09/19/18 16:20 Physical Exam Vitals: Vital Signs Temp Pulse Pulse Pulse Resp BP BP 09/20/18 08:45 16 09/20/18 08:00 97.8 F 85 16 181/80 09/20/18 03:43 97.9 F 83 15 09/19/18 23:39 97.9 F 93 15 09/19/18 19:17 98.1 F 78 18 145/80 09/19/18 16:31 72 16 119/63 09/19/18 14:39 98.1 F 82 18 119/60 BP Pulse Ox 09/20/18 08:45 09/20/18 08:00 97 09/20/18 03:43 123/72 96 09/19/18 23:39 133/79 98 09/19/18 19:17 96 09/19/18 16:31 98 09/19/18 14:39 98 Intake and Output 09/19/18 09/20/18 09/20/18 22:59 06:59 14:59 Other: Voiding Method Diaper Diaper Incontinent Incontinent # Voids 1 1 1 Results 09/20/18 04:28 09/20/18 04:28 Cardiac Enzymes 09/19/18 09/19/18 09/19/18 Range/Units 16:30 16:30 22:47 AST 21 (14-36) U/L Troponin I <0.012 <0.012 (0.000-0.034) ng/mL 09/20/18 Range/Units 04:28 AST (14-36) U/L Troponin I <0.012 (0.000-0.034) ng/mL Coagulation 09/19/18 Range/Units 16:30 PT 10.0 (9.0-12.0) sec APTT 23.1 (22.0-30.0) sec CBC 09/19/18 09/20/18 Range/Units 16:30 04:28 WBC 6.6 4.5 (3.8-10.6) k/uL RBC 3.11 L 3.06 L (3.80-5.40) m/uL Hgb 9.4 L D 9.3 L (11.4-16.0) gm/dL Hct 30.4 L 29.5 L (34.0-46.0) % Plt Count 178 185 (150-450) k/uL Comprehensive Metabolic Panel 09/19/18 09/19/18 09/20/18 Range/Units 16:30 19:19 04:28 Sodium 132 L 133 L 133 L (137-145) mmol/L Potassium 5.8 H 5.3 H 4.7 (3.5-5.1) mmol/L Chloride 99 102 103 (98-107) mmol/L Carbon Dioxide 24 21 L 23 (22-30) mmol/L BUN 28 H 28 H (7-17) mg/dL Creatinine 0.81 0.88 (0.52-1.04) mg/dL Glucose 98 93 (74-99) mg/dL Calcium 9.1 8.4 (8.4-10.2) mg/dL AST 21 (14-36) U/L ALT 13 (9-52) U/L Alkaline Phosphatase 130 H (38-126) U/L Total Protein 6.0 L (6.3-8.2) g/dL Albumin 3.5 (3.5-5.0) g/dL Current Medications Generic Name Dose Route Start Last Admin Trade Name Freq PRN Reason Stop Dose Admin Acetaminophen 650 mg 09/19/18 18:37 Tylenol Tab PO Q4H PRN Pain Escitalopram Oxalate 10 mg 09/20/18 09:30 09/20/18 12:35 Lexapro PO 10 mg DAILY LORNA Administration Gabapentin 300 mg 09/19/18 21:00 09/20/18 12:29 Neurontin PO 300 mg BID LORNA Administration Lisinopril 2.5 mg 09/20/18 09:00 09/20/18 12:29 Zestril PO 2.5 mg DAILY LORNA Administration Metoprolol Succinate 50 mg 09/20/18 09:00 09/20/18 12:29 Toprol Xl PO 50 mg DAILY LORNA Administration Naloxone HCl 0.2 mg 09/19/18 18:34 Narcan IV Q2M PRN Opioid Reversal Olanzapine 10 mg 09/19/18 21:00 09/19/18 22:17 Zyprexa PO 10 mg HS LORNA Administration Ondansetron HCl 4 mg 09/19/18 18:37 Zofran PO Q6H PRN Nausea Oxybutynin Chloride 5 mg 09/19/18 21:00 09/19/18 22:17 Ditropan Xl PO 5 mg HS@2100 LORNA Administration Oxycodone/Acetaminophen 0.5 each 09/19/18 21:30 09/19/18 22:15 Percocet 5-325 PO 0.5 each Q12HR PRN Administration Pain Pilocarpine HCl 7.5 mg 09/19/18 21:00 09/20/18 12:29 Salagen PO 7.5 mg BID LORNA Administration Senna/Docusate Sodium 1 each 09/19/18 21:00 09/20/18 12:29 Senokot-S PO 1 each BID LORNA Administration Intake and Output 09/19/18 09/20/18 09/20/18 22:59 06:59 14:59 Other: Voiding Method Diaper Diaper Incontinent Incontinent # Voids 1 1 1 09/20/18 04:28 09/20/18 04:28
--- NOTE | 2018-09-20 14:21 | CT ---
EXAMINATION TYPE: CT angio chest DATE OF EXAM: 09/20/2018 2:08 PM COMPARISON: None HISTORY: elevated d dimer CT DLP: 263.2 mGycm Automated exposure control for dose reduction was used. CONTRAST: CTA scan of the thorax is performed with IV Contrast, patient injected with 100 mL of Isovue 370, pul monary embolism protocol. . FINDINGS: LUNGS: No pleural effusion or pneumothorax. Subsegmental areas of consolidation are suggestive of ate lectasis. Calcified granuloma noted. MEDIASTINUM: There is satisfactory enhancement of the pulmonary artery and its branches, there is no CT evidence for pulmonary embolism. There are no greater than 1 cm hilar or mediastinal lymph nodes. Atherosclerotic change aorta. Coronary artery calcification seen. Heart mildly enlarged. OTHER: Hypertrophic and degenerative changes spine with evidence of previous vertebroplasty. Numerou s additional age-indeterminate severe compression deformity seen throughout the thoracic spine. Chron ic deformities involving the rib cage noted. IMPRESSION:
[2018-09-20] MEDS ORDERED: ALBUTEROL NEBULIZED 2.5 MG/3 ML INHALATION PRN (14:35)
[2018-09-20] MEDS ORDERED: ALPRAZolam 0.25 MG TAB PO PRN (14:35)
[2018-09-20] MEDS ORDERED: ARTIFICIAL TEARS-HYPROMELLOSE DROPS 15 ML BTL BOTH EYES PRN (14:35)
--- NOTE | 2018-09-20 14:38 | P.HPIM ---
History of Present Illness H&P Date: 09/20/18 This is a 82-year-old female patient of Dr. Garcia and Dr. Pulido with past medical history of asthma, CAD with ischemic cardiomyopathy, previous history of lung cancer post resection who is known to have severe lower back pain. Patient had back surgery in May [address] Simmons, Klebsiella pneumoniae ESBL urinary tract infection CAD, asthma, memory impairment, rectal cancer requiring colostomy bag. And on 12/17/2017 she sustained right superior inferior pubic rami fracture after a fall at home along with a urinary tract infection for which she was treated, and subsequently sent to subacute rehabilitation at [facility]. The patient returned home and most recently was in the emergency room in the beginning of August of this year and underwent x-ray of the hip that showed acetabular fracture and pubic ring fracture. CAT scan was also done and patient was then transferred to [facility] for trauma surgeon. Based on her conditionor surgical intervention was performed patient was discharged to [facility] where she has been residing. Yesterday she was sitting in bed eating and she ended up passing out. She states during the day she has not been able to keep awake. She was found to have her systolic blood pressure of 60. No seizure activity, no history of pacemaker. There was concern the patient aspirated and she was suctioned at the time. She was brought into [facility] emergency center for evaluation and by the time she arrived, blood pressure had improved. She denies any shortness of breath, no pain with deep breathing, no cough no rash. Chest x-ray showed atelectasis and scarring at the right base, elevation of the right hemidiaphragm. No acute cardiopulmonary process. CT of the brain and cervical spine showed no acute intracranial abnormality. Generalized atrophy and chronic small vessel ischemia. Old vertebral compression fracture of T5 and endplate fracture of C6. No acute cervical spine fracture. Mildly impacted fracture of the right clavicle head appears to be subacute with some healing. Periosteal callus demonstrated. Patient was placed in the observation unit and cardiology consult and neurology consult requested. Event monitor, EEG have been ordered. Repeat chest x-ray ordered in the morning. Review of Systems All systems: negative Constitutional: Denies chills, Denies fatigue, Denies fever Eyes: denies blurred vision, denies pain Ears, nose, mouth and throat: Denies dental pain, Denies headache, Denies mouth pain, Denies nasal congestion, Denies sore throat, Denies vertigo Cardiovascular: Reports syncope, Denies chest pain, Denies dyspnea on exertion, Denies edema, Denies leg edema, Denies lightheadedness, Denies shortness of breath Respiratory: Denies cough, Denies cough with sputum, Denies dyspnea, Denies excessive sputum, Denies hemoptysis, Denies home oxygen, Denies wheezing Gastrointestinal: Denies abdominal pain, Denies diarrhea, Denies loss of appetite, Denies nausea, Denies vomiting Genitourinary: Denies dysuria, Denies hematuria, Denies urgency, Denies urinary frequency Musculoskeletal: Reports muscle weakness, Denies frequent falls, Denies gait dysfunction, Denies myalgias Integumentary: Denies pruritus, Denies rash, Denies wounds Neurological: Denies aphasia, Denies change in mentation, Denies change in speech, Denies numbness, Denies seizures, Denies vertigo, Denies weakness Psychiatric: Denies anxiety, Denies depression Endocrine: Denies fatigue, Denies weight change Past Medical History Past Medical History: Asthma, Coronary Artery Disease (CAD), Cancer, Hypertension, Memory Impairment, Musculoskeletal Disorder, Osteoarthritis (OA), Sleep Apnea/CPAP/BIPAP Additional Past Medical History / Comment(s): Sjogren syndrome, RECTAL CANCER WITH COLOSTOMY , anemia, OVER ACTIVE BLADDER, hx. L4 fracture, BRONCH WASHING WAS POSITIVE FOR KLEBSIELLA PNUEMONAE., BACK PAIN. FREQUENT FALLS. History of Any Multi-Drug Resistant Organisms: ESBL, MRSA Date of last positivie culture/infection: 08/26/17 ESBL Klebsiella, MRSA 01/18/18 MDRO Source:: Urine Past Surgical History: Adenoidectomy, Appendectomy, Back Surgery, Bowel Resection, Breast Surgery, Heart Catheterization, Hysterectomy, Tonsillectomy, Uterine Ablation Additional Past Surgical History / Comment(s): PERMANENT COLOSTOMY. throat surgery removed uvula,L3-L4 two fractured vertebrae, sofi cataracts, kyphoplasty L4, PICCLINE IN MAY FOR ABX(PNE) SINCE REMOVED. PICC LINE PLAC EMENT, COLONOSCOPY, EGD, UTI 08/2017 Past Anesthesia/Blood Transfusion Reactions: No Reported Reaction Additional Past Anesthesia/Blood Transfusion Reaction / Comment(s): HX OF BLOOD TRANSFUSION Past Psychological History: No Psychological Hx Reported Smoking Status: Never smoker Past Alcohol Use History: None Reported Additional Past Alcohol Use History / Comment(s): cared for in the family home by the and children. Retired. No experience. No international travel. No tobacco or alcohol use. No animal exposures Past Drug Use History: None Reported - Past Family History Mother History Unknown: Yes Family Medical History: Dialysis, Renal Disease Brother(s) History Unknown: Yes Family Medical History: No Reported History Sister(s) History Unknown: Yes Family Medical History: No Reported History Additional Family Medical History / Comment(s): Parkinsons Father Family Medical History: Cancer, CVA/TIA Additional Family Medical History / Comment(s): 3 out of 4 siblings dx. autoimmune disease Medications and Allergies Home Medications Medication Instructions Recorded Confirmed Type OLANZapine [ZyPREXA] 10 mg PO HS 08/29/15 09/19/18 History Albuterol Inhaler [Ventolin Hfa 1 - 2 puff INHALATION RT-Q6H PRN 06/20/17 09/19/18 History Inhaler] Calcium Carb-Vit D 250Mg-125Un 1 tab PO BID 08/03/17 09/19/18 History [Oscal 250+D] Tolterodine ER [Detrol LA] 2 mg PO HS@2100 01/10/18 09/19/18 History ALPRAZolam [Xanax] 0.25 mg PO BID PRN #6 tablet 01/13/18 09/19/18 Rx Escitalopram [Lexapro] 10 mg PO DAILY 08/27/18 09/19/18 History Acetaminophen Tab [Tylenol Tab] 650 mg PO Q4H PRN 09/19/18 09/19/18 History Artificial Tears-Hypromellose 1 drops BOTH EYES DAILY PRN 09/19/18 09/19/18 History [Artificial Tear Drops] Ferrous Sulfate 308 mg PO BID 09/19/18 09/19/18 History Gabapentin [Neurontin] 300 mg PO BID 09/19/18 09/19/18 History Lisinopril [Zestril] 2.5 mg PO DAILY 09/19/18 09/19/18 History Metoprolol Succinate [Kapspargo 50 mg PO DAILY 09/19/18 09/19/18 History Sprinkle] Omeprazole 20 mg PO DAILY 09/19/18 09/19/18 History Ondansetron [Zofran] 4 mg PO Q6H PRN 09/19/18 09/19/18 History Pilocarpine HCl [Salagen] 7.5 mg PO BID 09/19/18 09/19/18 History Sennosides/Docusate Sodium [Dok 1 tab PO BID 09/19/18 09/19/18 History Plus Tablet] oxyCODONE HCL/ACETAMINOPHEN 1 tab PO Q12H PRN 09/19/18 09/19/18 History [Percocet 2.5-325 mg] Allergies Allergy/AdvReac Type Severity Reaction Status Date / Time aspirin Allergy Anaphylaxis Verified 09/19/18 16:20 caffeine Allergy CREATES Verified 09/19/18 16:20 TOO MUCH STOMACH ACID celecoxib [From Celebrex] Allergy Rash/Hives Verified 09/19/18 16:20 codeine Allergy Anaphylaxis Verified 09/19/18 16:20 doxycycline Allergy Unknown Verified 09/19/18 16:20 hydrocodone bitartrate Allergy Unknown Verified 09/19/18 16:20 [From [place]] milk Allergy Rash/Hives Verified 09/19/18 16:20 Penicillins Allergy Rash/Hives Verified 09/19/18 16:20 rofecoxib [From Vioxx] Allergy Rash/Hives Verified 09/19/18 16:20 clarithromycin [From Biaxin] AdvReac Nausea Verified 09/19/18 16:20 clindamycin AdvReac Nausea Verified 09/19/18 16:20 levofloxacin [From Levaquin] AdvReac Nausea Verified 09/19/18 16:20 Morpholine Analogues AdvReac Confusion Verified 09/19/18 16:20 ranitidine HCl [From Zantac] AdvReac Rash/Hives Verified 09/19/18 16:20 Physical Exam Vitals: Vital Signs Temp Pulse Pulse Pulse Resp BP BP 09/20/18 08:00 97.8 F 85 16 181/80 09/20/18 03:43 97.9 F 83 15 09/19/18 23:39 97.9 F 93 15 09/19/18 19:17 98.1 F 78 18 145/80 09/19/18 16:31 72 16 119/63 09/19/18 14:39 98.1 F 82 18 119/60 BP Pulse Ox 09/20/18 08:00 97 09/20/18 03:43 123/72 96 09/19/18 23:39 133/79 98 09/19/18 19:17 96 09/19/18 16:31 98 09/19/18 14:39 98 Intake and Output 09/19/18 09/20/18 09/20/18 22:59 06:59 14:59 Other: Voiding Method Diaper Incontinent # Voids 1 1 General appearance: cooperative, no acute distress - EENT Eyes: anicteric sclerae, EOMI, PERRLA, dentition normal ENT: no hard of hearing, no hearing grossly normal, NA/AT, normal oropharynx, no other, no pharyngeal erythema, no thrush, no tonsillar exudates, no tonsillar swelling - Neck Neck: normal ROM - Respiratory Respiratory: bilateral: CTA, negative: diminished, dullness - Cardiovascular Rhythm: regular Heart sounds: normal: S1, S2 Abnormal Heart Sounds: no systolic murmur, no diastolic murmur, no rub, no S3 Gallop, no S4 Gallop, no click, no other - Gastrointestinal General gastrointestinal: normal bowel sounds, soft - Integumentary Integumentary: decreased turgor, normal - Neurologic Neurologic: CNII-XII intact - Musculoskeletal Musculoskeletal: generalized weakness, strength equal bilaterally - Psychiatric Psychiatric: A&O x's 3, appropriate affect Results CBC & Chem 7: 09/20/18 04:28 09/20/18 04:28 Labs: Abnormal Lab Results - Last 24 Hours (Table) 09/19/18 09/19/18 09/19/18 Range/Units 16:30 16:30 16:40 RBC 3.11 L (3.80-5.40) m/uL Hgb 9.4 L D (11.4-16.0) gm/dL Hct 30.4 L (34.0-46.0) % MCHC 30.8 L (31.0-37.0) g/dL Lymphocytes # 0.6 L (1.0-4.8) k/uL Sodium 132 L (137-145) mmol/L Potassium 5.8 H (3.5-5.1) mmol/L Carbon Dioxide (22-30) mmol/L BUN 28 H (7-17) mg/dL Alkaline Phosphatase 130 H (38-126) U/L Total Protein 6.0 L (6.3-8.2) g/dL Ur Leukocyte Esterase Small H (Negative) Hyaline Casts 6 H (0-2) /lpf Urine Mucus Rare H (None) /hpf 09/19/18 09/20/18 09/20/18 Range/Units 19:19 04:28 04:28 RBC 3.06 L (3.80-5.40) m/uL Hgb 9.3 L (11.4-16.0) gm/dL Hct 29.5 L (34.0-46.0) % MCHC (31.0-37.0) g/dL Lymphocytes # 0.9 L (1.0-4.8) k/uL Sodium 133 L 133 L (137-145) mmol/L Potassium 5.3 H (3.5-5.1) mmol/L Carbon Dioxide 21 L (22-30) mmol/L BUN 28 H (7-17) mg/dL Alkaline Phosphatase (38-126) U/L Total Protein (6.3-8.2) g/dL Ur Leukocyte Esterase (Negative) Hyaline Casts (0-2) /lpf Urine Mucus (None) /hpf Thrombosis Risk Factor Assmnt - DVT/VTE Prophylaxis DVT/VTE Prophylaxis: Pharmacologic Prophylaxis ordered - Choose All That Apply Any of the Below Risk Factors Present?: Yes Each Factor Represents 1 point: Medical pt on bed rest Other Risk Factors: Yes Each Risk Factor Represents 2 Points: Patient confined to bed Each Risk Factor Represents 3 Points: Age 75 years or older Other congenital or acquired thrombophilia - If yes, enter type in comment: No Thrombosis Risk Factor Assessment Total Risk Factor Score: 6 Thrombosis Risk Factor Assessment Level: High Risk Assessment and Plan Plan: 1. Syncopal episode. Consults with cardiology and neurology, EEG, echocardiogram, CT of the chest. Neurology consults per protocol. Unable to assess orthostatics as patient is nonweightbearing on the right leg. 2. Concern for aspiration with syncopal episode. Repeat chest x-ray in the morning. Hold antibiotics at this point. 3. Recent fall with right humerus fracture, right hip and pubic rami fracture treated at [facility]. Patient is nonweightbearing 4. Osteoporosis with osteoporotic fractures. right superior inferior pubic vitamin D increased to 2000 units daily not on any biphosphonate's prior to admission 5. Chronic kidney failure CKD stage II, at baseline. Avoid nephrotoxic agents. 6. CAD and severe ischemic cardiomyopathy with low ejection fraction of 50%: Patient has been on metoprolol. 7. Hypertension well controlled on metoprolol, lisinopril. 8. Sjogren syndrome: Patient using Salagen and eyedrops. Continue PreserVision 9. Chronic anemia history of GI bleed without any recent bleeding. Check for iron deficiency and vitamin B12 deficiency 10. Chronic pain syndrome: Patient has been on Percocet. Continue Neurontin 300 mg twice daily. 11. Overactive bladder: Has been on Detrol. 12. Mild memory loss: No change remain on conservative management. 13. Chronic diastolic heart failure. not requiring any medication adjustments on lisinopril, metoprolol. 14. History of colon cancer, colostomy bag, stable 15. DVT prophylaxis. Lovenox. 16. GI prophylaxis Pepcid 17. Multiple drug ALLERGIES noted 18. Fall risk history of multiple falls. 19. Recurrent depression. Continue Zyprexa and Lexapro. Patient admitted to the hospital for a minimum of 2 nights today. Discharge plan: Return to [facility] Impression and plan of care have been directed as dictated by the signing physician. Caitlin Francis nurse practitioner acting as scribe for signing physician.
--- NOTE | 2018-09-20 16:56 | EEG ---
ELECTROENCEPHALOGRAM REPORT DATE OF SERVICE: 09/20/2018. PREAMBLE: This is an 83 -year-old female transferred from rehab due to an episode of unresponsiveness for five minutes. By the time EMS arrived, she was back to her baseline, alert and oriented times four. This study was performed to rule out any epileptiform activity. CURRENT MEDICATIONS: Senokot, Salagen, Percocet, Ditropan, Zofran, Zyprexa, Toprol XL, Lisinopril, Gabapentin, Tylenol. TYPE OF RECORDING: A routine 21 channel awake digital EEG recording was accomplished utilizing the 10-20 international electrode placement system. No sedation was given prior to the beginning of this recording. FINDINGS: At the beginning of this recording, there is generalized theta slowing. There are EMG artifacts seen in the bitemporal areas. As the tracing progresses, there is appearance of a reactive alpha rhythm in the background that attenuates on eye opening and returns up on eye closure. Provocative maneuvers such as photic stimulation and hyperventilation are not performed. There is no definitive sleep architecture seen. There is no background asymmetry, ictal or interictal patterns appreciated. IMPRESSION: This is a normal awake, drowsy electroencephalogram without background asymmetry or epileptiform discharges. Clinical correlation is advised. MMODL / IJN: [id number] / [facility]ITALCarla
--- NOTE | 2018-09-20 20:19 | P.CNNES ---
History of Present Illness Consult date: 09/20/18 Requesting physician: Caitlin Francis Reason for Consult: Syncope Chief complaint: "I passed out" History of Present Illness: This is an 82-year-old right-handed female with an extensive past medical history including asthma, coronary artery disease with ischemic cardiomyopathy, history of lung cancer status post resection, severe low back pain status post back surgery, Klebsiella urinary tract infection, asthma, memory impairment, rectal cancer requiring colostomy bag, pelvic fracture and history of arm injury as well. On the day prior to admission, she was reportedly sitting in bed eatin g and had a syncopal episode. She was found to systolic blood pressure of 60. There was no witnessed seizure activity. By the time she arrived in the emergency room, her blood pressure had improved. She did not have any constitutional symptoms, chest pain, shortness of breath or cough. Trauma wo rkup including CT of the brain and cervical spine did not demonstrate any acute process. Patient was admitted for a syncope workup with neurology and cardiology consult eating. EEG was done earlier in the day. Patient does not have any current neurological complaints. Note that she was getting opiates for pain control. Review of Systems I have performed a 14-point organ ROS with patient that are negative except as per HPI. Past Medical History Past Medical History: Asthma, Coronary Artery Disease (CAD), Cancer, Hypertension, Memory Impairment, Musculoskeletal Disorder, Osteoarthritis (OA), Sleep Apnea/CPAP/BIPAP Additional Past Medical History / Comment(s): Sjogren syndrome, RECTAL CANCER WITH COLOSTOMY , anemia, OVER ACTIVE BLADDER, hx. L4 fracture, BRONCH WASHING WAS POSITIVE FOR KLEBSIELLA PNUEMONAE., BACK PAIN. FREQUENT FALLS. History of Any Multi-Drug Resistant Organisms: ESBL, MRSA Date of last positivie culture/infection: 08/26/17 ESBL Klebsiella, MRSA 01/18/18 MDRO Source:: Urine Past Surgical History: Adenoidectomy, Appendectomy, Back Surgery, Bowel Resection, Breast Surgery, Heart Catheterization, Hysterectomy, Tonsillectomy, Uterine Ablation Additional Past Surgical History / Comment(s): PERMANENT COLOSTOMY. throat surgery removed uvula,L3-L4 two fractured vertebrae, sofi cataracts, kyphoplasty L4, PICCLINE IN MAY FOR ABX(PNE) SINCE REMOVED. PICC LINE PLACEMENT, COLONOSCOPY, EGD, UTI 08/2017 Past Anesthesia/Blood Transfusion Reactions: No Reported Reaction Additional Past Anesthesia/Blood Transfusion Reaction / Comment(s): HX OF BLOOD TRANSFUSION Past Psychological History: No Psychological Hx Reported Smoking Status: Never smoker Past Alcohol Use History: None Reported Past Drug Use History: None Reported - Past Family History Mother History Unknown: Yes Family Medical History: Dialysis, Renal Disease Brother(s) History Unknown: Yes Family Medical History: No Reported History Sister(s) History Unknown: Yes Family Medical History: No Reported History Additional Family Medical History / Comment(s): Parkinsons Father Family Medical History: Cancer, CVA/TIA Additional Family Medical History / Comment(s): 3 out of 4 siblings dx. autoimmune disease Medications and Allergies Home Medications Medication Instructions Recorded Confirmed Type OLANZapine [ZyPREXA] 10 mg PO HS 08/29/15 09/19/18 History Albuterol Inhaler [Ventolin Hfa 1 - 2 puff INHALATION RT-Q6H PRN 06/20/17 09/19/18 History Inhaler] Calcium Carb-Vit D 250Mg-125Un 1 tab PO BID 08/03/17 09/19/18 History [Oscal 250+D] Tolterodine ER [Detrol LA] 2 mg PO HS@2100 01/10/18 09/19/18 History ALPRAZolam [Xanax] 0.25 mg PO BID PRN #6 tablet 01/13/18 09/19/18 Rx Escitalopram [Lexapro] 10 mg PO DAILY 08/27/18 09/19/18 History Acetaminophen Tab [Tylenol Tab] 650 mg PO Q4H PRN 09/19/18 09/19/18 History Artificial Tears-Hypromellose 1 drops BOTH EYES DAILY PRN 09/19/18 09/19/18 History [Artificial Tear Drops] Ferrous Sulfate 308 mg PO BID 09/19/18 09/19/18 History Gabapentin [Neurontin] 300 mg PO BID 09/19/18 09/19/18 History Lisinopril [Zestril] 2.5 mg PO DAILY 09/19/18 09/19/18 History Metoprolol Succinate [Kapspargo 50 mg PO DAILY 09/19/18 09/19/18 History Sprinkle] Omeprazole 20 mg PO DAILY 09/19/18 09/19/18 History Ondansetron [Zofran] 4 mg PO Q6H PRN 09/19/18 09/19/18 History Pilocarpine HCl [Salagen] 7.5 mg PO BID 09/19/18 09/19/18 History Sennosides/Docusate Sodium [Dok 1 tab PO BID 09/19/18 09/19/18 History Plus Tablet] oxyCODONE HCL/ACETAMINOPHEN 1 tab PO Q12H PRN 09/19/18 09/19/18 History [Percocet 2.5-325 mg] Allergies Allergy/AdvReac Type Severity Reaction Status Date / Time aspirin Allergy Anaphylaxis Verified 09/19/18 16:20 caffeine Allergy CREATES Verified 09/19/18 16:20 TOO MUCH STOMACH ACID celecoxib [From Celebrex] Allergy Rash/Hives Verified 09/19/18 16:20 codeine Allergy Anaphylaxis Verified 09/19/18 16:20 doxycycline Allergy Unknown Verified 09/19/18 16:20 hydrocodone bitartrate Allergy Unknown Verified 09/19/18 16:20 [From [place]] milk Allergy Rash/Hives Verified 09/19/18 16:20 Penicillins Allergy Rash/Hives Verified 09/19/18 16:20 rofecoxib [From Vioxx] Allergy Rash/Hives Verified 09/19/18 16:20 clarithromycin [From Biaxin] AdvReac Nausea Verified 09/19/18 16:20 clindamycin AdvReac Nausea Verified 09/19/18 16:20 levofloxacin [From Levaquin] AdvReac Nausea Verified 09/19/18 16:20 Morpholine Analogues AdvReac Confusion Verified 09/19/18 16:20 ranitidine HCl [From Zantac] AdvReac Rash/Hives Verified 09/19/18 16:20 Physical Examination - Vital Signs Vital Signs: Vital Signs Temp Pulse Pulse Pulse Pulse Resp BP 09/20/18 16:00 98.1 F 82 16 09/20/18 13:00 98.4 F 87 100 18 149/58 09/20/18 08:45 16 09/20/18 08:00 97.8 F 85 16 09/20/18 03:43 97.9 F 83 15 09/19/18 23:39 97.9 F 93 15 BP BP BP Pulse Ox 09/20/18 16:00 149/64 96 09/20/18 13:00 145/56 92 L 07/01/19 08:45 09/20/18 08:00 181/80 97 09/20/18 03:43 123/72 96 09/19/18 23:39 133/79 98 Intake and Output 09/20/18 09/20/18 09/20/18 06:59 14:59 22:59 Intake Total 118 518 Balance 118 518 Intake: Oral 118 518 Other: Voiding Method Diaper Diaper Incontinent Incontinent # Voids 1 2 2 Weight 53.977 kg Gen NAD Pleasant and cooperative HEENT NCAT Sclera without icterus O/P clear Neck Supple No carotid bruit Cor RRR no m/r/g Lungs CTAB Abd Soft NTND +BS Ext Warm to touch No edema Neuro MS A+Ox4 Normal fluency Able to follow all commands CN PERRL VFF no APD EOMI no nystagmus or JOSHUA No facial asymmetry [place]'s symmetric Hearing intact to normal voice bilaterally Speech not dysarthric Equal elevation of palate Tongue midline Sym shrug and SCM bilaterally Motor Normal bulk/tone No left pronator drift or tremors Strength 2-3/5 RUE o/w 5/5 x3 Sens Intact to LT x4 No neglect Coord No dysmetria on FTN left DTRs 2+/4 sym throughout Toes withdrawn bilaterally No clonus at achilles Gait Deferred Results - Laboratory Findings CBC and BMP: 09/20/18 04:28 09/20/18 04:28 Abnormal Lab Findings: Abnormal Labs 09/19/18 09/19/18 09/19/18 16:30 16:30 16:40 RBC 3.11 L Hgb 9.4 L D Hct 30.4 L MCHC 30.8 L Lymphocytes # 0.6 L D-Dimer Sodium 132 L Potassium 5.8 H Carbon Dioxide BUN 28 H Alkaline Phosphatase 130 H Total Protein 6.0 L Ur Leukocyte Esterase Small H Hyaline Casts 6 H Urine Mucus Rare H 09/19/18 09/20/18 09/20/18 19:19 04:28 04:28 RBC 3.06 L Hgb 9.3 L Hct 29.5 L MCHC Lymphocytes # 0.9 L D-Dimer Sodium 133 L 133 L Potassium 5.3 H Carbon Dioxide 21 L BUN 28 H Alkaline Phosphatase Total Protein Ur Leukocyte Esterase Hyaline Casts Urine Mucus 09/20/18 11:58 RBC Hgb Hct MCHC Lymphocytes # D-Dimer 3.75 H Sodium Potassium Carbon Dioxide BUN Alkaline Phosphatase Total Protein Ur Leukocyte Esterase Hyaline Casts Urine Mucus - Diagnostic Findings Additional findings: CT Head wo cont 09/19/18. Nil acute. Small vessel ischemic disease and cerebral atrophy. CT C-spine 09/19/18. No acute cervical fracture. EEG 09/20/18. No EPD. I have reviewed neuroimages myself. Assessment and Plan Assessment: Syncope- unclear if it was caused by a primary neurological etiology. Query medication side effect. Plan: -Brain CT and EEG results reviewed with patient in detail. -Cardiology evaluation appreciated. -Other medical work-up for syncope per primary team. -Do not recommend further neuro work-up at this point. Will sign off. Please call with new questions. Thank you for this consultation. Please call with ?. Time with Patient: Greater than 30 (Time spent in direct patient care, greater than 50% of which was spent in [id number] counseling and coordination of care: 70 minutes.)
[2018-09-20 20:23] VITALS: RESP 18
[2018-09-20] MEDS: CALCIUM CARB-VIT D 250MG-125UN 1 EACH TAB PO SCH (20:56)
[2018-09-20] MEDS: FERROUS SULFATE 325 MG TAB PO SCH (20:56)
[2018-09-20] MEDS: OLANZapine 10 MG TAB PO SCH (21:11)
[2018-09-20] MEDS: oxyCODONE-APAP 5-325MG 1 EACH TAB PO PRN (21:11)
[2018-09-20] MEDS: OXYBUTYNIN XL 5 MG TAB.ER.24 PO SCH (21:12)
[2018-09-21] MEDS: METOPROLOL SUCCINATE (ER) 50 MG TAB.ER.24H PO SCH (06:34)
[2018-09-21] MEDS: LISINOPRIL 2.5 MG TAB PO SCH (06:34)
[2018-09-21] MEDS: ESCITALOPRAM 10 MG TAB PO SCH (08:09)
[2018-09-21] MEDS: FERROUS SULFATE 325 MG TAB PO SCH ×2 (08:09→21:09)
[2018-09-21] MEDS: GABAPENTIN 300 MG CAP PO SCH ×2 (08:10→21:08)
[2018-09-21] MEDS: PILOCARPINE 5 MG TAB PO SCH ×2 (08:10→21:11)
[2018-09-21] MEDS: SENNOSIDES-DOCUSATE SODIUM 1 EACH TAB PO SCH ×2 (08:10→21:09)
[2018-09-21] MEDS: PANTOPRAZOLE 40 MG TABLET PO SCH (08:10)
[2018-09-21] MEDS: ENOXAPARIN 30 MG/0.3 ML SYRINGE SQ SCH (08:11)
[2018-09-21] MEDS: CALCIUM CARB-VIT D 250MG-125UN 1 EACH TAB PO SCH ×2 (08:11→21:08)
[2018-09-21 08:18] LABS: HCT 33.5 % (34.0-46.0); HGB 10.4 gm/dL (11.4-16.0); Hypochromasia Marked; MCH 30.7 pg (25.0-35.0); MCV 99.2 fL (80.0-100.0); Macrocytosis Slight; Mean Platelet Volume 7.2; Platelet Count 173 k/uL (150-450); RBC 3.38 m/uL (3.80-5.40); RDW 14.7 % (11.5-15.5); WBC 5.5 k/uL (3.8-10.6)
[2018-09-21 08:37] LABS: African American GFR (CKD) >90 (>60 ml/min/1.73 sqM); Anion Gap 10 mmol/L; Blood Urea Nitrogen 22 mg/dL (7-17); Carbon Dioxide 20 mmol/L (22-30); Chloride 104 mmol/L (98-107); Glucose 87 mg/dL (74-99); Potassium 4.9 mmol/L (3.5-5.1); Sodium 134 mmol/L (137-145)
--- NOTE | 2018-09-21 14:15 | XR ---
EXAMINATION TYPE: XR chest 2V DATE OF EXAM: 09/21/2018 COMPARISON: 09/19/2018 TECHNIQUE: PA and lateral views submitted. HISTORY: Weakness FINDINGS: Multiple compression deformities within the vertebral column with diffuse osteopenia. Previous verteb roplasty noted. Limited inspiration with previous trauma the right humeral neck. Arthropathy of the s houlders. Linear changes involving the right lung are most typical scar or atelectasis. Ectasia of th e aorta. Chronic rib cage deformities are noted. IMPRESSION: 1. Linear subsegmental changes favor atelectasis over pneumonia.
--- NOTE | 2018-09-21 14:26 | P.DS ---
Providers Date of admission: 09/19/18 18:48 Expected date of discharge: 09/21/18 Attending physician: Melany Freedman Consults: 09/19/18 18:35 Consult Physician Urgent Consulting Provider: [facility] Consult Reason/Comments: acute syncope Do you want consulting provider notified?: Yes 09/20/18 09:25 Consult Physician Routine Consulting Provider: Chester Desai Consult Reason/Comments: syncope Do you want consulting provider notified?: Yes Primary care physician: Shimon Garcia [facility] Course: This is a 82-year-old female patient of Dr. Garcia and Dr. Pulido with past medical history of asthma, CAD with ischemic cardiomyopathy, previous history of lung cancer post resection who is known to have severe lower back pain. Patient had back surgery in May [address] Simmons, Klebsiella pneumoniae ESBL urinary tract infection CAD, asthma, memory impairment, rectal cancer requiring colostomy bag. And on 12/17/2017 she sustained right superior inferior pubic rami fracture after a fall at home along with a urinary tract infection for which she was treated, and subsequently sent to subacute rehabilitation at [facility]. The patient returned home and most recently was in the emergency room in the beginning of August of this year and underwent x-ray of the hip that showed acetabular fracture and pubic ring fracture. CAT scan was also done and patient was then transferred to [facility] for trauma surgeon. Based on her conditionor surgical intervention was performed patient was discharged to [facility] where she has been residing. Yesterday she was sitting in bed eating and she ended up passing out. She states during the day she has not been able to keep awake. She was found to have her systolic blood pressure of 60. No seizure activity, no history of pacemaker. There was concern the patient aspirated and she was suctioned at the time. She was brought into [facility] emergency center for evaluation and by the time she arrived, blood pressure had improved. She denies any shortness of breath, no pain with deep breathing, no cough no rash. Chest x-ray showed atelectasis and scarring at the right base, elevation of the right hemidiaphragm. No acute cardiopulmonary process. CT of the brain and cervical spine showed no acute intracranial abnormality. Generalized atrophy and chronic small vessel ischemia. Old vertebral compression fracture of T5 and endplate fracture of C6. No acute cervical spine fracture. Mildly impacted fracture of the right clavicle head appears to be subacute with some healing. Periosteal callus demonstrated. Patient was placed in the observation unit and cardiology consult and neurology consult requested. Event monitor, EEG have been ordered. Repeat chest x-ray ordered in the morning. 09/20: Patient has been seen by cardiology with plan to hold Imdur and evaluate patient with a 30 day event monitor with plan to follow up with Dr. Pulido. Echocardiogram reveals EF of 55-60% with mild concentric left ventricular atrophy, trace aortic regurgitation, mild mitral regurgitation, mild tricuspid regurgitation, no pulmonary regurgitation. D-dimer was elevated and patient underwent a CTA of the chest that ruled out pulmonary embolism. Subsegmental atelectasis favored over infiltrate. Patient has been seen by Dr. Desai from neurology and neurologic etiology has been ruled out for cause of syncope. EEG was normal. Repeat chest x-ray shows linear subsegmental changes favor atelectasis or pneumonia. Aspiration pneumonia has been ruled out. Patient denies any new complaints. We will plan to discharge patient back to longterm today in stable condition. Discharge diagnoses: 1. Syncopal episode rule out cardiac arrhythmia. 2. Concern for aspiration with syncopal episode. No concern for aspiration pneumonia. 3. Recent fall with right humerus fracture, right hip and pubic rami fracture treated at [facility]. Patient is nonweightbearing 4. Osteoporosis with osteoporotic fractures. right superior inferior pubic vitamin D increased to 2000 units daily not on any biphosphonate's prior to admission 5. Chronic kidney failure CKD stage II, at baseline. 6. CAD and severe ischemic cardiomyopathy with low ejection fraction of 50%. 7. Hypertension 8. Sjogren syndrome 9. Chronic anemia history of GI bleed without any recent bleeding. 10. Chronic pain syndrome 11. Overactive bladder 12. Mild memory loss 13. Chronic diastolic heart failure. 14. History of colon cancer, colostomy bag, stable 15. Multiple drug ALLERGIES noted 16. Fall risk history of multiple falls. 17. Recurrent depression. Discharge plan: Return to [facility] Impression and plan of care have been directed as dictated by the signing physician. Caitlin Francis nurse practitioner acting as scribe for signing physician. Patient Condition at Discharge: Good Plan - Discharge Summary New Discharge Prescriptions: Continue OLANZapine [ZyPREXA] 10 mg PO HS Albuterol Inhaler [Ventolin Hfa Inhaler] 1 - 2 puff INHALATION RT-Q6H PRN PRN Reason: Shortness Of Breath Calcium Carb-Vit D 250Mg-125Un [Oscal 250+D] 1 tab PO BID Tolterodine ER [Detrol LA] 2 mg PO HS@2100 Escitalopram [Lexapro] 10 mg PO DAILY Ondansetron [Zofran] 4 mg PO Q6H PRN PRN Reason: Nausea Acetaminophen Tab [Tylenol] 650 mg PO Q4H PRN PRN Reason: Pain Artificial Tears-Hypromellose [Artificial Tear Drops] 1 drops BOTH EYES DAILY PRN PRN Reason: Dry Eye(S) Sennosides/Docusate Sodium [Dok Plus Tablet] 1 tab PO BID Pilocarpine HCl [Salagen] 7.5 mg PO BID Ferrous Sulfate 308 mg PO BID Omeprazole 20 mg PO DAILY Metoprolol Succinate [Kapspargo Sprinkle] 50 mg PO DAILY Lisinopril [Zestril] 2.5 mg PO DAILY Gabapentin [Neurontin] 300 mg PO BID #6 cap oxyCODONE HCL/ACETAMINOPHEN [Percocet 2.5-325 mg] 1 tab PO Q12H PRN #6 tablet PRN Reason: Pain ALPRAZolam [Xanax] 0.25 mg PO BID PRN #6 tablet PRN Reason: Anxiety Discontinued Isosorbide Mononitrate [Imdur] 60 mg PO QAM Discharge Medication List OLANZapine [ZyPREXA] 10 mg PO HS 08/29/15 [History] Albuterol Inhaler [Ventolin Hfa Inhaler] 1 - 2 puff INHALATION RT-Q6H PRN 06/20/17 [History] Calcium Carb-Vit D 250Mg-125Un [Oscal 250+D] 1 tab PO BID 08/03/17 [History] Tolterodine ER [Detrol LA] 2 mg PO HS@2100 01/10/18 [History] Escitalopram [Lexapro] 10 mg PO DAILY 08/27/18 [History] Acetaminophen Tab [Tylenol] 650 mg PO Q4H PRN 09/19/18 [History] Artificial Tears-Hypromellose [Artificial Tear Drops] 1 drops BOTH EYES DAILY PRN 09/19/18 [History] Ferrous Sulfate 308 mg PO BID 09/19/18 [History] Lisinopril [Zestril] 2.5 mg PO DAILY 09/19/18 [History] Metoprolol Succinate [[place]spargo Sprinkle] 50 mg PO DAILY 09/19/18 [History] Omeprazole 20 mg PO DAILY 09/19/18 [History] Ondansetron [Zofran] 4 mg PO Q6H PRN 09/19/18 [History] Pilocarpine HCl [Salagen] 7.5 mg PO BID 09/19/18 [History] Sennosides/Docusate Sodium [Dok Plus Tablet] 1 tab PO BID 09/19/18 [History] ALPRAZolam [Xanax] 0.25 mg PO BID PRN #6 tablet 09/21/18 [Rx] Gabapentin [Neurontin] 300 mg PO BID #6 cap 09/21/18 [Rx] oxyCODONE HCL/ACETAMINOPHEN [Percocet 2.5-325 mg] 1 tab PO Q12H PRN #6 tablet 09/21/18 [Rx] Follow up Appointment(s)/Referral(s): Iesha Pulido MD [STAFF PHYSICIAN] - 2 Weeks Shimon Garcia MD [Primary Care Provider] - 1 Week (at [facility]) Discharge Disposition: TRANSFER TO SNF/ECF
[2018-09-21] MEDS: oxyCODONE-APAP 5-325MG 1 EACH TAB PO PRN (16:57)
[2018-09-21] MEDS: OXYBUTYNIN XL 5 MG TAB.ER.24 PO SCH (21:09)
[2018-09-21] MEDS: OLANZapine 10 MG TAB PO SCH (21:09)
[2018-09-22 07:08] VITALS: BP 131/61; PULSE 77; TEMP 97.6
[2018-09-22] MEDS: PILOCARPINE 5 MG TAB PO SCH (08:42)
[2018-09-22] MEDS: METOPROLOL SUCCINATE (ER) 50 MG TAB.ER.24H PO SCH (08:42)
[2018-09-22] MEDS: GABAPENTIN 300 MG CAP PO SCH (08:42)
[2018-09-22] MEDS: ESCITALOPRAM 10 MG TAB PO SCH (08:42)
[2018-09-22] MEDS: FERROUS SULFATE 325 MG TAB PO SCH (08:42)
[2018-09-22] MEDS: LISINOPRIL 2.5 MG TAB PO SCH (08:42)
[2018-09-22] MEDS: CALCIUM CARB-VIT D 250MG-125UN 1 EACH TAB PO SCH (08:42)
[2018-09-22] MEDS: PANTOPRAZOLE 40 MG TABLET PO SCH (08:43)
[2018-09-22] MEDS: SENNOSIDES-DOCUSATE SODIUM 1 EACH TAB PO SCH (08:43)
[2018-09-22] MEDS: oxyCODONE-APAP 5-325MG 1 EACH TAB PO PRN (09:59)
[2018-09-22] MEDS: ENOXAPARIN 30 MG/0.3 ML SYRINGE SQ SCH (10:00)
== END 2018-09-22 13:37 | DRG 312 ==
LOC: EC 14:37 → 1SOBS 18:48 → OBSVTOIN 09-22 06:59
PROVIDERS: ADMIT Family Medicine; ATTEND Family Medicine
DX: R55 Syncope and collapse (principal); F33.9 Major depressive disorder, recurrent, unspecified; I13.0 Hypertensive heart and chronic kidney disease with heart failure and stage 1 through stage 4 chronic kidney disease, or unspecified chronic kidney disease; I50.32 Chronic diastolic (congestive) heart failure; J98.11 Atelectasis; M80.051A Age-related osteoporosis with current pathological fracture, right femur, initial encounter for fracture; D64.9 Anemia, unspecified; G47.33 Obstructive sleep apnea (adult) (pediatric); G89.4 Chronic pain syndrome; I25.10 Atherosclerotic heart disease of native coronary artery without angina pectoris; I25.5 Ischemic cardiomyopathy; I49.9 Cardiac arrhythmia, unspecified; I73.9 Peripheral vascular disease, unspecified; J45.909 Unspecified asthma, uncomplicated; M35.00 Sjogren syndrome, unspecified; N18.2 Chronic kidney disease, stage 2 (mild); N32.81 Overactive bladder; Z16.12 Extended spectrum beta lactamase (ESBL) resistance; Z79.899 Other long term (current) drug therapy; Z82.0 Family history of epilepsy and other diseases of the nervous system; Z85.048 Personal history of other malignant neoplasm of rectum, rectosigmoid junction, and anus; Z85.118 Personal history of other malignant neoplasm of bronchus and lung; Z90.710 Acquired absence of both cervix and uterus; Z91.81 History of falling; Z93.3 Colostomy status; Z88.6 Allergy status to analgesic agent; Z91.018 Allergy to other foods; Z88.1 Allergy status to other antibiotic agents; Z88.5 Allergy status to narcotic agent; Z88.0 Allergy status to penicillin; Z88.8 Allergy status to other drugs, medicaments and biological substances; Z16.24 Resistance to multiple antibiotics; R41.3 Other amnesia
CPT/HCPCS: 36415; 70450; 71046; 71275; 72125; 80048; 80051; 80053; 81001; 83880; 84484; 85025; 85027; 85379; 85610; 85730; 87070; 87075; 87077; 87186; 87205; 93005; 93270; 93306; 95819; 96360; 96361; 99285

== ENCOUNTER 2019-02-04 12:51 | Emergency (ER) | payer MEDICARE ==
[2019-02-04 12:56] VITALS: TEMP 98.7
[2019-02-04] MEDS ORDERED: SODIUM CHLORIDE 0.9% 500 ML 500 ML IV STA (13:32)
--- NOTE | 2019-02-04 13:41 | ED ---
General Adult HPI - General Chief complaint: Weakness Stated complaint: generalized weakness Source: patient, RN notes reviewed, old records reviewed Mode of arrival: ambulatory Limitations: no limitations - History of Present Illness Initial comments: This is an 83-year-old female who was brought to the emergency department by her . Patient has a past history of coronary artery disease some memory impairment and hypertension. states she woke up this morning and the patient is extremely tired and weak found it very difficult to stand though he did not appreciate any weakness on either side did not appreciate any focal weakness of the left. Patient was alert and oriented 3 according to the patient had no slurred speech. Patient herself denied any pain she denied a headache she denied chest patient denies any problems breathing patient denies abdominal pain she denies nausea vomiting diarrhea. Patient denied any recent fever chills or any recent cough. Patient herself states she doesn't know why she so exhausted. states yesterday she was completely at her baseline. - Related Data Home Medications Medication Instructions Recorded Confirmed OLANZapine [ZyPREXA] 10 mg PO HS 08/29/15 02/04/19 Albuterol Inhaler [Ventolin Hfa 1 - 2 puff INHALATION RT-Q6H PRN 06/20/17 02/04/19 Inhaler] Calcium Carb-Vit D 250Mg-125Un 1 tab PO BID 08/03/17 02/04/19 [Oscal 250+D] Escitalopram [Lexapro] 10 mg PO DAILY 08/27/18 02/04/19 Acetaminophen Tab [Tylenol] 650 mg PO Q4H PRN 09/19/18 02/04/19 Artificial Tears-Hypromellose 1 drops BOTH EYES DAILY PRN 09/19/18 02/04/19 [Artificial Tear Drops] Ferrous Sulfate 330 mg PO BID 09/19/18 02/04/19 Lisinopril [Zestril] 2.5 mg PO DAILY 09/19/18 02/04/19 Omeprazole 20 mg PO DAILY 09/19/18 02/04/19 Pilocarpine HCl [Salagen] 7.5 mg PO BID 09/19/18 02/04/19 Sennosides/Docusate Sodium [Dok 1 tab PO BID 09/19/18 02/04/19 Plus Tablet] Cephalexin [Keflex] 500 mg PO Q12HR 02/04/19 02/04/19 Collagenase [Santyl] 1 applic TOPICAL HS 02/04/19 02/04/19 Metoprolol Tartrate [Lopressor] 50 mg PO DAILY 02/04/19 02/04/19 oxyCODONE-APAP 7.5-325MG [Percocet 1 tab PO BID 02/04/19 02/04/19 7.5-325 mg] Previous Rx's Medication Instructions Recorded Gabapentin [Neurontin] 300 mg PO BID #6 cap 09/21/18 Allergies Allergy/AdvReac Type Severity Reaction Status Date / Time aspirin Allergy Anaphylaxis Verified 09/19/18 16:20 caffeine Allergy CREATES Verified 09/19/18 16:20 TOO MUCH STOMACH ACID celecoxib [From Celebrex] Allergy Rash/Hives Verified 09/19/18 16:20 codeine Allergy Anaphylaxis Verified 09/19/18 16:20 doxycycline Allergy Unknown Verified 09/19/18 16:20 hydrocodone bitartrate Allergy Unknown Verified 09/19/18 16:20 [From B[place]] milk Allergy Rash/Hives Verified 09/19/18 16:20 Penicillins Allergy Rash/Hives Verified 09/19/18 16:20 rofecoxib [From Vioxx] Allergy Rash/Hives Verified 09/19/18 16:20 clarithromycin [From Biaxin] AdvReac Nausea Verified 09/19/18 16:20 clindamycin AdvReac Nausea Verified 09/19/18 16:20 levofloxacin [From Levaquin] AdvReac Nausea Verified 09/19/18 16:20 Morpholine Analogues AdvReac Confusion Verified 09/19/18 16:20 ranitidine HCl [From Zantac] AdvReac Rash/Hives Verified 09/19/18 16:20 Review of Systems ROS Statement: Those systems with pertinent positive or pertinent negative responses have been documented in the HPI. ROS Other: All systems not noted in ROS Statement are negative. Past Medical History Past Medical History: Asthma, Coronary Artery Disease (CAD), Cancer, Hypertension, Memory Impairment, Musculoskeletal Disorder, Osteoarthritis (OA), Sleep Apnea/CPAP/BIPAP Additional Past Medical History / Comment(s): Sjogren syndrome, RECTAL CANCER WITH COLOSTOMY , anemia, OVER ACTIVE BLADDER, hx. L4 fracture, BRONCH WASHING WAS POSITIVE FOR KLEBSIELLA PNUEMONAE., BACK PAIN. FREQUENT FALLS. History of Any Multi-Drug Resistant Organisms: ESBL, MRSA Date of last positivie culture/infection: 09/21/18 MRSA; 08/26/17 ESBL Klebsiella MDRO Source:: Back-MRSA; Urine-ESBL Past Surgical History: Adenoidectomy, Appendectomy, Back Surgery, Bowel Resection, Breast Surgery, Heart Catheterization, Hysterectomy, Tonsillectomy, Uterine Ablation Additional Past Surgical History / Comment(s): PERMANENT COLOSTOMY. throat surgery removed uvula,L3-L4 two fractured vertebrae, sofi cataracts, kyphoplasty L4, PICCLINE IN MAY FOR ABX(PNE) SINCE REMOVED. PICC LINE PLACEMENT, COLONOSCOPY, EGD, UTI 08/2017 Past Anesthesia/Blood Transfusion Reactions: No Reported Reaction Additional Past Anesthesia/Blood Transfusion Reaction / Comment(s): HX OF BLOOD TRANSFUSION Past Psychological History: No Psychological Hx Reported Smoking Status: Never smoker Past Alcohol Use History: None Reported Past Drug Use History: None Reported - Past Family History Mother History Unknown: Yes Family Medical History: Dialysis, Renal Disease Brother(s) History Unknown: Yes Family Medical History: No Reported History Sister(s) History Unknown: Yes Family Medical History: No Reported History Additional Family Medical History / Comment(s): Parkinsons Father Family Medical History: Cancer, CVA/TIA Additional Family Medical History / Comment(s): 3 out of 4 siblings dx. autoimmune disease General Exam - General Exam Comments Initial Comments: GENERAL: Patient is well-developed and well-nourished. Patient is nontoxic and well- hydrated and is in no acute distress.Patient is in no distress but appears to be quite tired soon as I stop talking she fades away and goes asleep but she is easily arousable. ENT: Neck is soft and supple. No significant lymphadenopathy is noted. Oropharynx is clear. Moist mucous membranes. Neck has full range of motion without eliciting any pain. EYES: The sclera were anicteric and conjunctiva were pink and moist. Extraocular movements were intact and pupils were equal round and reactive to light. Eyelids were unremarkable. PULMONARY: Unlabored respirations. Good breath sounds bilaterally. No audible rales rhonchi or wheezing was noted. CARDIOVASCULAR: There is a regular rate and rhythm without any murmurs gallops or rubs. ABDOMEN: Soft and nontender with normal bowel sounds. No palpable organomegaly was noted. There is no palpable pulsatile mass. SKIN: Skin is clear with no lesions or rashes and otherwise unremarkable. NEUROLOGIC: Patient is alert and oriented x3. Cranial nerves II through XII are grossly intact. Motor and sensory are also intact. Normal speech, volume and content. Symmetrical smile. MUSCULOSKELETAL: Normal extremities with adequate strength and full range of motion. No lower extremity swelling or edema. No calf tenderness. LYMPHATICS: No significant lymphadenopathy is noted PSYCHIATRIC: Normal psychiatric evaluation. Limitations: no limitations Course Vital Signs 02/04/19 02/04/19 12:53 14:30 Temperature 98.7 F Pulse Rate 72 76 Respiratory 22 18 Rate Blood Pressure 124/61 134/73 O2 Sat by Pulse 99 98 Oximetry Medical Decision Making - Medical Decision Making EKG shows normal sinus rhythm at 69 bpm FL interval 176 dresses 84 QT interval 394 QTC is 422. Patient's EKG shows no ST segment elevation or depression or T wave abnormalities are noted. Patient's chest x-ray shows no acute abnormality. Patient has a little bit elevated fasting psychiatric the patient Kayexalate 30 mg. Patient was much more alert is a day went on and the patient was able to ambulate around the emergency without problem. Patient's was in agreement with this as well. I spoke with Dr. Garcia he agreed that the patient should be discharged home but he wanted the patient to be followed up on Thursday. I told the that he should only be giving her half of Percocet at night and during the day and he was in agreement with that - Lab Data Result diagrams: 02/04/19 13:50 02/04/19 13:50 Lab Results 02/04/19 02/04/19 02/04/19 Range/Units 13:50 13:50 13:50 WBC 8.3 (3.8-10.6) k/uL RBC 3.53 L (3.80-5.40) m/uL Hgb 10.6 L (11.4-16.0) gm/dL Hct 33.7 L (34.0-46.0) % MCV 95.6 (80.0-100.0) fL MCH 29.9 (25.0-35.0) pg MCHC 31.3 (31.0-37.0) g/dL RDW 13.4 (11.5-15.5) % Plt Count 196 (150-450) k/uL Neutrophils % 75 % Lymphocytes % 12 % Monocytes % 5 % Eosinophils % 6 % Basophils % 1 % Neutrophils # 6.2 (1.3-7.7) k/uL Lymphocytes # 1.0 (1.0-4.8) k/uL Monocytes # 0.4 (0-1.0) k/uL Eosinophils # 0.5 (0-0.7) k/uL Basophils # 0.1 (0-0.2) k/uL PT (9.0-12.0) sec INR (<1.2) APTT (22.0-30.0) sec Sodium 137 (137-145) mmol/L Potassium 5.8 H (3.5-5.1) mmol/L Chloride 104 (98-107) mmol/L Carbon Dioxide 25 (22-30) mmol/L Anion Gap 8 mmol/L BUN 38 H (7-17) mg/dL Creatinine 1.13 H (0.52-1.04) mg/dL Est GFR (CKD-EPI)AfAm 52 (>60 ml/min/1.73 sqM) Est GFR (CKD-EPI)NonAf 45 (>60 ml/min/1.73 sqM) Glucose 75 (74-99) mg/dL Plasma Lactic Acid Ric 1.3 (0.7-2.0) mmol/L Calcium 9.2 (8.4-10.2) mg/dL Magnesium 2.0 (1.6-2.3) mg/dL Total Bilirubin 0.4 (0.2-1.3) mg/dL AST 25 (14-36) U/L ALT 17 (9-52) U/L Alkaline Phosphatase 67 (38-126) U/L Troponin I (0.000-0.034) ng/mL Total Protein 6.6 (6.3-8.2) g/dL Albumin 3.6 (3.5-5.0) g/dL Urine Color Urine Appearance (Clear) Urine pH (5.0-8.0) Ur Specific [place] (1.001-1.035) Urine Protein (Negative) Urine Glucose (UA) (Negative) Urine Ketones (Negative) Urine Blood (Negative) Urine Nitrite (Negative) Urine Bilirubin (Negative) Urine Urobilinogen (<2.0) mg/dL Ur Leukocyte Esterase (Negative) 02/04/19 02/04/19 02/04/19 Range/Units 13:50 13:50 14:20 WBC (3.8-10.6) k/uL RBC (3.80-5.40) m/uL Hgb (11.4-16.0) gm/dL Hct (34.0-46.0) % MCV (80.0-100.0) fL MCH (25.0-35.0) pg MCHC (31.0-37.0) g/dL RDW (11.5-15.5) % Plt Count (150-450) k/uL Neutrophils % % Lymphocytes % % Monocytes % % Eosinophils % % Basophils % % Neutrophils # (1.3-7.7) k/uL Lymphocytes # (1.0-4.8) k/uL Monocytes # (0-1.0) k/uL Eosinophils # (0-0.7) k/uL Basophils # (0-0.2) k/uL PT 10.0 (9.0-12.0) sec INR 0.9 (<1.2) APTT 25.2 (22.0-30.0) sec Sodium (137-145) mmol/L Potassium (3.5-5.1) mmol/L Chloride (98-107) mmol/L Carbon Dioxide (22-30) mmol/L Anion Gap mmol/L BUN (7-17) mg/dL Creatinine (0.52-1.04) mg/dL Est GFR (CKD-EPI)AfAm (>60 ml/min/1.73 sqM) Est GFR (CKD-EPI)NonAf (>60 ml/min/1.73 sqM) Glucose (74-99) mg/dL Plasma Lactic Acid Ric (0.7-2.0) mmol/L Calcium (8.4-10.2) mg/dL Magnesium (1.6-2.3) mg/dL Total Bilirubin (0.2-1.3) mg/dL AST (14-36) U/L ALT (9-52) U/L Alkaline Phosphatase (38-126) U/L Troponin I <0.012 (0.000-0.034) ng/mL Total Protein (6.3-8.2) g/dL Albumin (3.5-5.0) g/dL Urine Color Yellow Urine Appearance Clear (Clear) Urine pH 5.5 (5.0-8.0) Ur Specific [place] 1.010 (1.001-1.035) Urine Protein Negative (Negative) Urine Glucose (UA) Negative (Negative) Urine Ketones Negative (Negative) Urine Blood Negative (Negative) Urine Nitrite Negative (Negative) Urine Bilirubin Negative (Negative) Urine Urobilinogen <2.0 (<2.0) mg/dL Ur Leukocyte Esterase Negative (Negative) Disposition Clinical Impression: Generalized weakness, Fatigue Disposition: HOME SELF-CARE Condition: Good Instructions (If sedation given, give patient instructions): Weakness (ED) Additional Instructions: Patient should cut her Percocet and half at night and during the day. Patient should follow up with Dr. Garcia on Thursday. Patient should return to the emergency department any symptoms worsen. Patient should also return for any new symptoms. Is patient prescribed a controlled substance at d/c from ED?: No Referrals: Shimon Garcia MD [Primary Care Provider] - 1-2 days Time of Disposition: 17:05
[2019-02-04 14:08] LABS: Basophils # (A) 0.1 k/uL (0-0.2); Basophils % (A) 1 %; Eosinophils # (A) 0.5 k/uL (0-0.7); Eosinophils % (A) 6 %; HCT 33.7 % (34.0-46.0); HGB 10.6 gm/dL (11.4-16.0); Lymphocytes % (A) 12 %; MCH 29.9 pg (25.0-35.0); MCHC 31.3 g/dL (31.0-37.0); MCV 95.6 fL (80.0-100.0); Monocytes # (A) 0.4 k/uL (0-1.0); Monocytes % (A) 5 %; Neutrophils # (A) 6.2 k/uL (1.3-7.7); Neutrophils % (A) 75 %; Platelet Count 196 k/uL (150-450); RBC 3.53 m/uL (3.80-5.40); RDW 13.4 % (11.5-15.5); WBC 8.3 k/uL (3.8-10.6)
[2019-02-04 14:20] LABS: INR 0.9 (<1.2); Partial Thromboplastin Time 25.2 sec (22.0-30.0)
[2019-02-04 14:22] LABS: Albumin 3.6 g/dL (3.5-5.0); Calcium 9.2 mg/dL (8.4-10.2); Potassium 5.8 mmol/L (3.5-5.1); Total Bilirubin 0.4 mg/dL (0.2-1.3); Total Protein 6.6 g/dL (6.3-8.2)
[2019-02-04 14:37] LABS: Appearance,Urine Clear (Clear); Bilirubin,Urine Negative (Negative); Blood,Urine Negative (Negative); Color,Urine Yellow; Glucose,Urine (UA) Negative (Negative); Ketones,Urine Negative (Negative); Leukocyte Esterase,Urine Negative (Negative); Nitrite,Urine Negative (Negative); PH, Urine 5.5 (5.0-8.0); Protein,Urine Negative (Negative); Urobilinogen,Urine <2.0 mg/dL (<2.0)
--- NOTE | 2019-02-04 15:31 | XR ---
EXAMINATION TYPE: XR chest 2V DATE OF EXAM: 02/04/2019 COMPARISON: September 21, 2018 HISTORY: Shortness of breath TECHNIQUE: Frontal and lateral views of the chest are obtained. FINDINGS: Scattered senescent parenchymal changes noted. Hyperinflation compatible with COPD. No evidence for infiltrate. Linear atelectasis or parenchymal scarring right midlung zone. Heart size is stable. Mediastinal structures are stable and grossly unremarkable. No evidence for hilar prominence. Degenerative changes dorsal spine. IMPRESSION: 1. No evidence for acute pulmonary disease.
[2019-02-04] MEDS ORDERED: SODIUM POLYSTYRENE SULFONATE 15 GM/60 ML BOTTLE PO STA (16:45)
[2019-02-04 17:31] VITALS: BP 137/79; PULSE 88; RESP 20
== END 2019-02-04 17:31 | disposition home or self-care (01) ==
LOC: EC 12:51
DX: R53.1 Weakness (principal); R53.83 Other fatigue; J45.909 Unspecified asthma, uncomplicated; I25.10 Atherosclerotic heart disease of native coronary artery without angina pectoris; D64.9 Anemia, unspecified; I10 Essential (primary) hypertension; M19.90 Unspecified osteoarthritis, unspecified site; G47.30 Sleep apnea, unspecified; M35.00 Sjogren syndrome, unspecified; Z88.0 Allergy status to penicillin; Z88.1 Allergy status to other antibiotic agents; Z88.5 Allergy status to narcotic agent; Z88.6 Allergy status to analgesic agent; Z88.8 Allergy status to other drugs, medicaments and biological substances; Z91.011 Allergy to milk products; Z91.048 Other nonmedicinal substance allergy status; Z79.891 Long term (current) use of opiate analgesic; Z79.899 Other long term (current) drug therapy; Z85.048 Personal history of other malignant neoplasm of rectum, rectosigmoid junction, and anus; Z93.3 Colostomy status; Z86.14 Personal history of Methicillin resistant Staphylococcus aureus infection; Z99.89 Dependence on other enabling machines and devices
CPT/HCPCS: 36415; 71046; 80053; 81003; 83605; 83735; 84484; 85025; 85610; 85730; 93005; 96360; 99285

== ENCOUNTER 2019-02-14 19:30 | Inpatient (IN) | payer MEDICARE ==
[2019-02-14] MEDS ORDERED: ACETAMINOPHEN TAB 500 MG TAB PO STA (19:42)
--- NOTE | 2019-02-14 19:46 | ED ---
General Adult HPI - General Source: patient, family, EMS Mode of arrival: EMS Limitations: no limitations <Abigail Guerin - Last Filed: 02/14/19 20:48> <Riya Rodriguez - Last Filed: 02/19/19 14:38> - General Chief complaint: Weakness Stated complaint: weakness Time Seen by Provider: 02/14/19 19:31 - History of Present Illness Initial comments: 83-year-old female patient is brought to the emergency department today for evaluation of increasing weakness. Patient states that starting yesterday she has been unable to walk or get out of bed. States she has been feeling generalized weakness. States was a heaviness over her legs over her chest. She is reporting some left-sided chest pain. States she has had an intermittent cough. Patient states she's had decreased appetite. Denies any nausea or vomiting. Denies any abdominal pain. She does have a colostomy bag, denies any change to her stool output. States she has been having burning with urination. She does consistently wear a brief and is incontinent. She denies any sweats or dizziness. Denies numbness or tingling to the extremities. Denies any focal weakness. Patient denies any recent rash, shortness breath, diarrhea, constipation, back pain, headache, visual changes, or any other complaints. (Abigail Guerin) - Related Data Home Medications Medication Instructions Recorded Confirmed OLANZapine [ZyPREXA] 10 mg PO HS 08/29/15 02/15/19 Escitalopram [Lexapro] 10 mg PO DAILY 08/27/18 02/15/19 Lisinopril [Zestril] 2.5 mg PO DAILY 09/19/18 02/15/19 Pilocarpine HCl [Salagen] 7.5 mg PO TID 09/19/18 02/15/19 Sennosides/Docusate Sodium [Dok 1 tab PO BID 09/19/18 02/15/19 Plus Tablet] Ascorbic Acid [Vitamin C] 500 mg PO DAILY 02/14/19 02/15/19 Cholecalciferol [Vitamin D3 (25 1,000 unit PO DAILY 02/14/19 02/15/19 Mcg = 1000 Iu)] L.acidoph,Paracasei, B.lactis 1 cap PO DAILY 02/14/19 02/15/19 [Probiotic] Lansoprazole [Prevacid] 15 mg PO BID 02/14/19 02/15/19 Multivitamins, Thera [Multivitamin 1 tab PO DAILY 02/14/19 02/15/19 (formulary)] Polyethylene Glycol 3350 [Miralax] 17 gm PO DAILY PRN 02/14/19 02/15/19 Vit C/E/Zn/Coppr/Lutein/Zeaxan 1 cap PO DAILY 02/14/19 02/15/19 [Preservision Areds 2 Softgel] Isopto Tears 1 drop BOTH EYES DAILY PRN 02/15/19 02/15/19 Tolterodine Tartrate [Detrol LA] 4 mg PO Q48H 02/15/19 02/15/19 Previous Rx's Medication Instructions Recorded Cephalexin [Keflex] 250 mg PO Q8HR #30 capsule 02/18/19 Furosemide [Lasix] 40 mg PO DAILY #30 tablet 02/18/19 Gabapentin [Neurontin] 300 mg PO BID #6 cap 02/18/19 Potassium Citrate [Potassium 10 meq PO DAILY #30 tablet.er 02/18/19 Citrate ER] oxyCODONE-APAP 7.5-325MG [Percocet 0.5 tab PO Q6H PRN #6 tab 02/18/19 7.5-325 mg] Allergies Allergy/AdvReac Type Severity Reaction Status Date / Time aspirin Allergy Anaphylaxis Verified 02/15/19 10:21 caffeine Allergy CREATES Verified 02/15/19 10:21 TOO MUCH STOMACH ACID celecoxib [From Celebrex] Allergy Rash/Hives Verified 02/15/19 10:21 codeine Allergy Anaphylaxis Verified 02/15/19 10:21 doxycycline Allergy Unknown Verified 02/15/19 10:21 hydrocodone bitartrate Allergy Unknown Verified 02/15/19 10:21 [From [place]] Penicillins Allergy Rash/Hives Verified 02/15/19 10:21 rofecoxib [From Vioxx] Allergy Rash/Hives Verified 02/15/19 10:21 clarithromycin [From Biaxin] AdvReac Nausea Verified 02/15/19 10:21 clindamycin AdvReac Nausea Verified 02/15/19 10:21 levofloxacin [From Levaquin] AdvReac Nausea Verified 02/15/19 10:21 Morpholine Analogues AdvReac Confusion Verified 02/15/19 10:21 ranitidine HCl [From Zantac] AdvReac Rash/Hives Verified 02/15/19 10:21 Review of Systems ROS Other: All systems not noted in ROS Statement are negative. <Abigail Guerin - Last Filed: 02/14/19 20:48> ROS Other: All systems not noted in ROS Statement are negative. <KaydenboogieRiya Luther - Last Filed: 02/19/19 14:38> ROS Statement: Those systems with pertinent positive or pertinent negative responses have been documented in the HPI. Past Medical History Past Medical History: Asthma, Coronary Artery Disease (CAD), Cancer, Hypertension, Memory Impairment, Musculoskeletal Disorder, Osteoarthritis (OA), Sleep Apnea/CPAP/BIPAP Additional Past Medical History / Comment(s): Sjogren syndrome, RECTAL CANCER WITH COLOSTOMY , anemia, OVER ACTIVE BLADDER, hx. L4 fracture, BRONCH WASHING WAS POSITIVE FOR KLEBSIELLA PNUEMONAE., BACK PAIN. FREQUENT FALLS. History of Any Multi-Drug Resistant Organisms: ESBL, MRSA Date of last positivie culture/infection: 09/21/18 MRSA; 08/26/17 ESBL Klebsiella MDRO Source:: Back-MRSA; Urine-ESBL Past Surgical History: Adenoidectomy, Appendectomy, Back Surgery, Bowel Resection, Breast Surgery, Heart Catheterization, Hysterectomy, Tonsillectomy, Uterine Ablation Additional Past Surgical History / Comment(s): PERMANENT COLOSTOMY. throat surgery removed uvula,L3-L4 two fractured vertebrae, sofi cataracts, kyphoplasty L4, PICCLINE IN MAY FOR ABX(PNE) SINCE REMOVED. PICC LINE PLACEMENT, COLONOSCOPY, EGD, UTI 08/2017 Past Anesthesia/Blood Transfusion Reactions: No Reported Reaction Additional Past Anesthesia/Blood Transfusion Reaction / Comment(s): HX OF BLOOD TRANSFUSION Past Psychological History: No Psychological Hx Reported Smoking Status: Never smoker Past Alcohol Use History: None Reported Past Drug Use History: None Reported - Past Family History Mother History Unknown: Yes Family Medical History: Dialysis, Renal Disease Brother(s) History Unknown: Yes Family Medical History: No Reported History Sister(s) History Unknown: Yes Family Medical History: No Reported History Additional Family Medical History / Comment(s): Parkinsons Father Family Medical History: Cancer, CVA/TIA Additional Family Medical History / Comment(s): 3 out of 4 siblings dx. autoimmune disease <Abigail Guerin Babar - Last Filed: 02/14/19 20:48> General Exam Limitations: no limitations General appearance: alert, in no apparent distress, other (This is a well- developed, well-nourished elderly female patient in no acute distress. Vital signs upon presentation are temperature 101.0F, pulse 112, respirations 20, blood pressure 130/70, pulse ox 98% on room air.) Eye exam: Present: normal appearance, PERRL, EOMI. Absent: scleral icterus, conjunctival injection, periorbital swelling ENT exam: Present: normal exam, normal oropharynx, mucous membranes moist Respiratory exam: Present: rales (Generalized). Absent: normal lung sounds bilaterally, respiratory distress, wheezes, rhonchi, stridor Cardiovascular Exam: Present: normal rhythm, tachycardia, normal heart sounds. Absent: systolic murmur, diastolic murmur, rubs, gallop, clicks GI/Abdominal exam: Present: soft, normal bowel sounds, other (Colostomy noted to the right mid abdomen). Absent: distended, tenderness, guarding, rebound, rigid Neurological exam: Present: alert, oriented X3, CN II-XII intact Psychiatric exam: Present: normal affect, normal mood Skin exam: Present: warm, dry, intact, normal color. Absent: rash <Abigail Guerin Babar - Last Filed: 02/14/19 20:48> Course Vital Signs 02/14/19 02/14/19 02/14/19 19:36 19:38 21:18 Temperature 101 F H 98.3 F Pulse Rate 112 H 109 H 108 H Respiratory 20 20 18 Rate Blood Pressure 130/70 130/76 122/72 O2 Sat by Pulse 98 100 99 Oximetry EKG Findings - EKG Comments: EKG Findings:: EKG obtained at 1950 shows sinus tachycardia with a ventricular rate of 111, [place] interval 192, QRS duration 82, QT 340, QTc 462. No evidence of ST elevation or depression. <Abigail Guerin Babar - Last Filed: 02/14/19 20:48> Medical Decision Making - Lab Data Result diagrams: 02/14/19 19:52 02/14/19 19:52 - Radiology Data Radiology results: report reviewed, image reviewed <Abigail Guerin Babar - Last Filed: 02/14/19 20:48> - Lab Data Result diagrams: 02/16/19 07:07 02/18/19 07:16 <Riya Rodriguez - Last Filed: 02/19/19 14:38> - Medical Decision Making 83-year-old female patient percents to the emergency department today for evaluation of generalized weakness and inability to ambulate. Physical examination revealed soft nontender abdomen. Crackling in the lung bases. She is also reporting left-sided chest pain and mild shortness of breath. Reporting dysuria and frequency of urination. Labs reviewed and did reveal elevated white blood cell count at 16,000. Did have a urinalysis with positive nitrite and evidence of urinary tract infection. This will be sent for culture. She does have a history of urine culture positive for MRSA. We'll treat with Rocephin and vancomycin pending culture. She'll be admitted to the hospital for further evaluation, we will consult cardiology given patient's chest pain. (Abigail Guerin) I was available for consultation in the emergency department. The history and physical exam were done by the midlevel provider. I was consulted for this patients care. I reviewed the case with the midlevel provider and based on their presentation of the patient, I agree with the assessment, medical decision making and plan of care as documented. I evaluated the patient myself and agree to hospital admission. Chart was dictated using [employer] dictation software. Attempts were made to correct any dictation errors however some typographical errors may persist. (Riya Rodriguez) - Lab Data Lab Results 02/14/19 02/14/19 02/14/19 Range/Units 19:25 19:52 19:52 WBC 16.8 H (3.8-10.6) k/uL RBC 3.82 (3.80-5.40) m/uL Hgb 12.0 (11.4-16.0) gm/dL Hct 36.3 (34.0-46.0) % MCV 95.1 (80.0-100.0) fL MCH 31.4 (25.0-35.0) pg MCHC 33.0 (31.0-37.0) g/dL RDW 13.1 (11.5-15.5) % Plt Count 175 (150-450) k/uL Neutrophils % 87 % Lymphocytes % 6 % Monocytes % 4 % Eosinophils % 1 % Basophils % 1 % Neutrophils # 14.7 H (1.3-7.7) k/uL Lymphocytes # 1.0 (1.0-4.8) k/uL Monocytes # 0.7 (0-1.0) k/uL Eosinophils # 0.2 (0-0.7) k/uL Basophils # 0.2 (0-0.2) k/uL PT (9.0-12.0) sec INR (<1.2) APTT (22.0-30.0) sec Sodium 134 L (137-145) mmol/L Potassium 4.5 (3.5-5.1) mmol/L Chloride 101 (98-107) mmol/L Carbon Dioxide 26 (22-30) mmol/L Anion Gap 7 mmol/L BUN 23 H (7-17) mg/dL Creatinine 0.96 (0.52-1.04) mg/dL Est GFR (CKD-EPI)AfAm 63 (>60 ml/min/1.73 sqM) Est GFR (CKD-EPI)NonAf 55 (>60 ml/min/1.73 sqM) Glucose 131 H (74-99) mg/dL Plasma Lactic Acid Ric (0.7-2.0) mmol/L Calcium 8.4 (8.4-10.2) mg/dL Total Bilirubin 0.8 (0.2-1.3) mg/dL AST 31 (14-36) U/L ALT 20 (9-52) U/L Alkaline Phosphatase 105 (38-126) U/L Troponin I (0.000-0.034) ng/mL Total Protein 6.2 L (6.3-8.2) g/dL Albumin 3.3 L (3.5-5.0) g/dL Urine Color Urine Appearance (Clear) Urine pH (5.0-8.0) Ur Specific [place] (1.001-1.035) Urine Protein (Negative) Urine Glucose (UA) (Negative) Urine Ketones (Negative) Urine Blood (Negative) Urine Nitrite (Negative) Urine Bilirubin (Negative) Urine Urobilinogen (<2.0) mg/dL Ur Leukocyte Esterase (Negative) Urine RBC (0-5) /hpf Urine WBC (0-5) /hpf Urine WBC Clumps (None) /hpf Urine Bacteria (None) /hpf Urine Mucus (None) /hpf Influenza Type A RNA Not Detected (Not Detectd) Influenza Type B (PCR) Not Detected (Not Detectd) 02/14/19 02/14/19 02/14/19 Range/Units 19:52 19:52 19:52 WBC (3.8-10.6) k/uL RBC (3.80-5.40) m/uL Hgb (11.4-16.0) gm/dL Hct (34.0-46.0) % MCV (80.0-100.0) fL MCH (25.0-35.0) pg MCHC (31.0-37.0) g/dL RDW (11.5-15.5) % Plt Count (150-450) k/uL Neutrophils % % Lymphocytes % % Monocytes % % Eosinophils % % Basophils % % Neutrophils # (1.3-7.7) k/uL Lymphocytes # (1.0-4.8) k/uL Monocytes # (0-1.0) k/uL Eosinophils # (0-0.7) k/uL Basophils # (0-0.2) k/uL PT 10.8 (9.0-12.0) sec INR 1.0 (<1.2) APTT 30.0 (22.0-30.0) sec Sodium (137-145) mmol/L Potassium (3.5-5.1) mmol/L Chloride (98-107) mmol/L Carbon Dioxide (22-30) mmol/L Anion Gap mmol/L BUN (7-17) mg/dL Creatinine (0.52-1.04) mg/dL Est GFR (CKD-EPI)AfAm (>60 ml/min/1.73 sqM) Est GFR (CKD-EPI)NonAf (>60 ml/min/1.73 sqM) Glucose (74-99) mg/dL Plasma Lactic Acid Ric 1.1 (0.7-2.0) mmol/L Calcium (8.4-10.2) mg/dL Total Bilirubin (0.2-1.3) mg/dL AST (14-36) U/L ALT (9-52) U/L Alkaline Phosphatase (38-126) U/L Troponin I 0.012 (0.000-0.034) ng/mL Total Protein (6.3-8.2) g/dL Albumin (3.5-5.0) g/dL Urine Color Urine Appearance (Clear) Urine pH (5.0-8.0) Ur Specific [place] (1.001-1.035) Urine Protein (Negative) Urine Glucose (UA) (Negative) Urine Ketones (Negative) Urine Blood (Negative) Urine Nitrite (Negative) Urine Bilirubin (Negative) Urine Urobilinogen (<2.0) mg/dL Ur Leukocyte Esterase (Negative) Urine RBC (0-5) /hpf Urine WBC (0-5) /hpf Urine WBC Clumps (None) /hpf Urine Bacteria (None) /hpf Urine Mucus (None) /hpf Influenza Type A RNA (Not Detectd) Influenza Type B (PCR) (Not Detectd) 02/14/19 Range/Units 20:14 WBC (3.8-10.6) k/uL RBC (3.80-5.40) m/uL Hgb (11.4-16.0) gm/dL Hct (34.0-46.0) % MCV (80.0-100.0) fL MCH (25.0-35.0) pg MCHC (31.0-37.0) g/dL RDW (11.5-15.5) % Plt Count (150-450) k/uL Neutrophils % % Lymphocytes % % Monocytes % % Eosinophils % % Basophils % % Neutrophils # (1.3-7.7) k/uL Lymphocytes # (1.0-4.8) k/uL Monocytes # (0-1.0) k/uL Eosinophils # (0-0.7) k/uL Basophils # (0-0.2) k/uL PT (9.0-12.0) sec INR (<1.2) APTT (22.0-30.0) sec Sodium (137-145) mmol/L Potassium (3.5-5.1) mmol/L Chloride (98-107) mmol/L Carbon Dioxide (22-30) mmol/L Anion Gap mmol/L BUN (7-17) mg/dL Creatinine (0.52-1.04) mg/dL Est GFR (CKD-EPI)AfAm (>60 ml/min/1.73 sqM) Est GFR (CKD-EPI)NonAf (>60 ml/min/1.73 sqM) Glucose (74-99) mg/dL Plasma Lactic Acid Ric (0.7-2.0) mmol/L Calcium (8.4-10.2) mg/dL Total Bilirubin (0.2-1.3) mg/dL AST (14-36) U/L ALT (9-52) U/L Alkaline Phosphatase (38-126) U/L Troponin I (0.000-0.034) ng/mL Total Protein (6.3-8.2) g/dL Albumin (3.5-5.0) g/dL Urine Color Yellow Urine Appearance Cloudy H (Clear) Urine pH 7.0 (5.0-8.0) Ur Specific [place] 1.018 (1.001-1.035) Urine Protein 1+ H (Negative) Urine Glucose (UA) Negative (Negative) Urine Ketones Negative (Negative) Urine Blood Small H (Negative) Urine Nitrite Positive H (Negative) Urine Bilirubin Negative (Negative) Urine Urobilinogen <2.0 (<2.0) mg/dL Ur Leukocyte Esterase Large H (Negative) Urine RBC 39 H (0-5) /hpf Urine WBC >182 H (0-5) /hpf Urine WBC Clumps Few H (None) /hpf Urine Bacteria Rare H (None) /hpf Urine Mucus Rare H (None) /hpf Influenza Type A RNA (Not Detectd) Influenza Type B (PCR) (Not Detectd) - Radiology Data Two-view x-ray of the chest is obtained. Report reviewed in its entirety. Impression by Dr. Granger shows fibrotic changes and atelectasis slightly worsened last exam. No obvious heart failure (Abigail Guerin) Disposition Decision to Admit Reason: Admit from EC Decision Date: 02/14/19 Decision Time: 20:51 <Abigail Guerin - Last Filed: 02/14/19 20:48> <Riya Rodriguez - Last Filed: 02/19/19 14:38> Clinical Impression: Urinary tract infection, Sepsis, Chest pain Disposition: ADMITTED IP TO THIS [facility] Condition: Good
[2019-02-14] MEDS: SODIUM CHLORIDE 0.9% 500 ML 500 ML IV SCH ×2 (19:59→20:57)
[2019-02-14 20:05] LABS: Basophils # (A) 0.2 k/uL (0-0.2); Basophils % (A) 1 %; Eosinophils # (A) 0.2 k/uL (0-0.7); Eosinophils % (A) 1 %; HCT 36.3 % (34.0-46.0); Lymphocytes % (A) 6 %; MCH 31.4 pg (25.0-35.0); MCV 95.1 fL (80.0-100.0); Monocytes # (A) 0.7 k/uL (0-1.0); Monocytes % (A) 4 %; Neutrophils # (A) 14.7 k/uL (1.3-7.7); Neutrophils % (A) 87 %; Platelet Count 175 k/uL (150-450); RBC 3.82 m/uL (3.80-5.40); RDW 13.1 % (11.5-15.5); WBC 16.8 k/uL (3.8-10.6)
[2019-02-14 20:15] LABS: Albumin 3.3 g/dL (3.5-5.0); Calcium 8.4 mg/dL (8.4-10.2); Potassium 4.5 mmol/L (3.5-5.1); Prothrombin Time 10.8 sec (9.0-12.0); Total Bilirubin 0.8 mg/dL (0.2-1.3); Total Protein 6.2 g/dL (6.3-8.2)
[2019-02-14 20:25] LABS: Appearance,Urine Cloudy (Clear); Bacteria,Urine Rare /hpf; Bilirubin,Urine Negative (Negative); Blood,Urine Small (Negative); Color,Urine Yellow; Glucose,Urine (UA) Negative (Negative); Ketones,Urine Negative (Negative); Leukocyte Esterase,Urine Large (Negative); Mucus,Urine Rare /hpf; Nitrite,Urine Positive (Negative); Protein,Urine 1+ (Negative); RBC,Urine 39 /hpf (0-5); Specific Gravity,Urine 1.018 (1.001-1.035); Urobilinogen,Urine <2.0 mg/dL (<2.0); WBC,Urine >182 /hpf (0-5)
--- NOTE | 2019-02-14 20:36 | XR ---
EXAMINATION TYPE: XR chest 2V DATE OF EXAM: 02/14/2019 COMPARISON: 02/04/2019 HISTORY: Fever TECHNIQUE: Frontal and lateral views of the chest are obtained. FINDINGS: There is coarse interstitial density in the lungs. There is some patchy atelectasis in the anterior right upper lobe. There is thoracic vertebroplasty. There is no definite pleural effusion. There is no gross heart failure. IMPRESSION: Fibrotic changes and atelectasis slightly worse than last exam. No obvious heart failure .
[2019-02-14] MEDS ORDERED: VANCOMYCIN IV PER PHARMACY 1 EACH MISC MISCELLANE PRN (20:44)
[2019-02-14] MEDS ORDERED: NALOXONE 0.4 MG/ML 1 ML VIAL IV PRN (20:45)
[2019-02-14] MEDS ORDERED: ONDANSETRON 4 MG/2 ML VIAL IVP PRN (20:45)
[2019-02-14] MEDS ORDERED: SODIUM CHLORIDE 0.9% 840 ML IV ONE (20:47)
[2019-02-14] MEDS ORDERED: VANCOMYCIN 1,250 MG in SODIUM CHLORIDE 0.9% 250 ML IVPB STA (20:50)
[2019-02-14] MEDS: SODIUM CHLORIDE 0.9% 1,000 ML IV SCH (22:15)
[2019-02-15] MEDS ORDERED: SODIUM CHLORIDE 0.9% 1,000 ML BAG ONE (01:30)
[2019-02-15] MEDS: VANCOMYCIN 1,000 MG in SODIUM CHLORIDE 0.9% 250 ML IVPB SCH (08:49)
[2019-02-15] MEDS: SODIUM CHLORIDE 0.9% 1,000 ML IV SCH ×2 (08:50→20:39)
[2019-02-15] MEDS ORDERED: POLYETHYLENE GLYCOL 3350 17 GM POWD.PACK PO PRN (09:22)
[2019-02-15] MEDS: LISINOPRIL 2.5 MG TAB PO SCH (10:10)
[2019-02-15] MEDS: GABAPENTIN 300 MG CAP PO SCH ×2 (10:10→20:33)
[2019-02-15] MEDS: ESCITALOPRAM 10 MG TAB PO SCH (10:10)
[2019-02-15] MEDS: PANTOPRAZOLE 40 MG TABLET PO SCH ×2 (10:10→20:33)
[2019-02-15 10:26] LABS: Basophils % (A) 0 %; Eosinophils # (A) 0.2 k/uL (0-0.7); Eosinophils % (A) 2 %; HCT 35.3 % (34.0-46.0); HGB 10.8 gm/dL (11.4-16.0); Hypochromasia Marked; Lymphocytes # (A) 0.7 k/uL (1.0-4.8); Lymphocytes % (A) 6 %; MCH 31.1 pg (25.0-35.0); MCHC 30.5 g/dL (31.0-37.0); Macrocytosis Slight; Mean Platelet Volume 6.5; Monocytes # (A) 0.5 k/uL (0-1.0); Monocytes % (A) 4 %; Neutrophils # (A) 9.9 k/uL (1.3-7.7); Neutrophils % (A) 87 %; Platelet Count 172 k/uL (150-450); RBC 3.46 m/uL (3.80-5.40); RDW 13.1 % (11.5-15.5); WBC 11.4 k/uL (3.8-10.6)
[2019-02-15 10:33] LABS: MCV 102.1 fL (80.0-100.0)
--- NOTE | 2019-02-15 10:46 | CONS ---
CONSULTATION Mrs. Victor is an 83-year-old female who presented with progressive weakness, lack of energy and had urinary tract infection. Cardiology consultation was requested because of symptoms of chest discomfort. The patient had chest discomfort, worse when she takes a deep breath or when she moves in certain positions. She denies any change in her breathing. She denies any dizziness, but she has been feeling progressively fatigued. She has a remote history of cardiomyopathy that improved. Her last echocardiogram performed in September of this year revealed ejection fraction 55% to 60% with mild mitral regurgitation. She has occasional peripheral edema. No clear PND nor orthopnea. She is limited in her physical activity. MEDICATION: Her medications at home included Detrol, MiraLAX, Zyprexa, Zestril, probiotic, Neurontin, Lexapro. REVIEW OF SYSTEMS: RESPIRATORY SYSTEM: She has dyspnea on exertion. No recent wheezing. She has mild cough. GI SYSTEM: No recent GI bleeding. No peptic ulcer disease. SYSTEM: She had dysuria. NERVOUS SYSTEM: No stroke or seizure. PHYSICAL EXAMINATION: She is an 83-year-old female, alert, oriented, in no apparent distress. Blood pressure 130/60 with the heart rate in the 90s. Afebrile. HEAD: Normocephalic. EYES: Sclerae anicteric. NECK: Good upstroke. No bruits. No jugular venous distention. LUNGS: Clear to auscultation. HEART: Regular rate and rhythm, S1, S2. No S3 with systolic murmur and a chest wall tenderness reproducing the pain. ABDOMEN: Soft, nontender. EXTREMITIES: A trace edema. LAB DATA: Lab data revealed troponin 0.012 and 0.017. BUN and creatinine 23 and 0.96. Potassium 4.5. Hemoglobin of 12. White blood cell of 16.8. EKG revealed a sinus mechanism, rate of [address]-T wave changes and poor R-wave progression. Chest x-ray revealed no acute infiltrate. IMPRESSION: 1. Urinary tract infection with associated weakness and fatigue. 2. Chest discomfort atypical for ischemic heart disease. 3. History of hypertension. RECOMMENDATION: From the cardiac standpoint, I see no evidence of acute ischemic event. No further cardiac workup will be needed at this time. She had an echocardiogram done in September that showed no acute changes. We will on as-needed basis. Please feel free to call us for any question. MMODL / IJN: [id number] /
--- NOTE | 2019-02-15 11:03 | US ---
EXAMINATION TYPE: US kidneys/renal and bladder DATE OF EXAM: 02/15/2019 COMPARISON: CT & US 2019 CLINICAL HISTORY: recurrent UTI. Recurrent UTI, exam done portable. EXAM MEASUREMENTS: Right Kidney: 9.4 x 3.6 x 3.6 cm Left Kidney: 9.3 x 3.9 x 4.1 cm Right Kidney: 1.1cm hypoechoic area medial superior pole Left Kidney: no hydronephrosis or masses seen Bladder: appears wnl Bilateral Jets seen: no There is no evidence for hydronephrosis at this point in time. No nephrolithiasis is seen. The urin anuja bladder is anechoic. Bilateral ureteral jets are seen. IMPRESSION: Nonspecific right renal lesion.
[2019-02-15] MEDS: ACETAMINOPHEN TAB 325 MG TAB PO PRN (12:38)
--- NOTE | 2019-02-15 13:57 | P.CON ---
Consult Note - . Consult date: 02/15/19 Assessment/Plan:: This is a pleasant 83-year-old patient being seen by wound care center for a nonhealing ulceration to the back. Patient states that the ulceration has been there for quite some time. The current dressing was a adherent dressing. Patigideon nt has ecchymosis around the ulceration. The ulceration measures approximately 1.5 x 1.5 x 0.1. The wound bed shows granulation with minimal slough, the periwound is attached and has ecchymosis noted. We will likely the ulceration was caused by pressure. Patient denies any drainage or pain to the site. Review of systems: Integumentary: Reports wound, denies pruritus, denies ecchymosis, denies any other lesions Physical exam: Integumentary: See HPI Assessment/plan: 1. Nonhealing ulceration with pressure component with fat layer exposure. Apply honey alginate, saline moistened gauze, ABDs and secured with paper tape. Discussed with patient and that the area is caused by pressure we'll need to investigate for culprit such as chair or spending prolonged periods of time on back. Patient to utilize a wall full cushion while sitting to the back. Continue with offloading. The patient option for outpatient wound therapy. Thank you for the consultation. Any questions please contact the wound care center. DNP note has been reviewed and discussed with Dr. Vieyra and the impression and plan of care has been directed as dictated.
[2019-02-15 14:12] VITALS: BMI 25.4
--- NOTE | 2019-02-15 14:24 | P.HPIM ---
History of Present Illness H&P Date: 02/15/19 Chief Complaint: Weakness This is an 83-year-old female patient of Dr. Garcia and Dr. Pulido with past medical history of asthma, CAD with ischemic cardiomyopathy, previous history of lung cancer post resection who is known to have severe lower back pain, history of Klebsiella pneumoniae ESBL urinary tract infection, memory impairment, rectal cancer requiring colostomy bag. Patient complains of feeling ill for the past 1 week. She complains of generalized weakness lethargy and fever along with back pain. She gives history of frequent urinary tract infections and a weak bladder. She also Complains of pain in the left breast area. Her last mammogram was one and half years ago. Patient has chronically inverted nipple and has noted no change in size, lumps or discharge. Patient is also noted to have a wound on her back present on presentation. Patient denies any shortness of breath or cough. Patient lives at home with her . She has been at [facility] for subacute rehab in the past. She was brought into [facility] emergency center for evaluation and found to have a temperature of 101, tachycardia 112, leukocytosis of 16.8, blood pressure was 130/70 and pulse ox 90% on room air. EKG was sinus tachycardia with no ST changes. BUN 23 and creatinine 0.96, blood sugar 131, albumin 3.3, influenza testing negative. Lactic acid 1.1, troponin negative. Urinalysis cloudy, nitrate positive, leukoesterase large, WBCs greater than 182, WBC clumps few, bacteria rare. Chest x-ray revealed fibrotic changes and atelectasis slightly worse from last exam. No obvious heart failure. Patient was started on Rocephin and vancomycin and admitted to the cardiac stepdown unit. Cardiology consult was requested for chest pain and a consult added for Dr. Grace for frequent urinary tract infections. Wound consult regarding back wound. Blood culture and urine culture are in progress. Previous urine cultures from November and December were positive for MRSA. Review of Systems Constitutional: Reports anorexia, Reports chills, Reports fatigue, Reports fever, Reports lethargy, Reports malaise, Reports poor appetite Eyes: denies blurred vision, denies pain Ears, nose, mouth and throat: Denies headache, Denies nasal congestion, Denies n alvino discharge, Denies sore throat, Denies vertigo Breasts: Reports as per HPI Cardiovascular: Denies chest pain, Denies dyspnea on exertion, Denies edema, Denies leg edema, Denies lightheadedness, Denies shortness of breath, Denies syncope Respiratory: Denies cough, Denies cough with sputum, Denies dyspnea, Denies hemoptysis, Denies wheezing Gastrointestinal: Reports abdominal pain, Denies diarrhea, Denies nausea, Denies vomiting Genitourinary: Reports dysuria, Reports incomplete emptying, Reports mixed incontinence, Denies hematuria Musculoskeletal: Reports gait dysfunction, Reports muscle weakness, Denies myalgias Integumentary: Reports wounds, Denies pruritus, Denies rash Neurological: Denies change in mentation, Denies change in speech, Denies numbness, Denies seizures, Denies weakness Psychiatric: Denies anxiety, Denies depression Endocrine: Denies fatigue, Denies weight change Past Medical History Past Medical History: Asthma, Coronary Artery Disease (CAD), Cancer, Hypertension, Memory Impairment, Musculoskeletal Disorder, Osteoarthritis (OA), Sleep Apnea/CPAP/BIPAP Additional Past Medical History / Comment(s): Sjogren syndrome, RECTAL CANCER WITH COLOSTOMY , anemia, OVER ACTIVE BLADDER, hx. L4 fracture, BRONCH WASHING WAS POSITIVE FOR KLEBSIELLA PNUEMONAE., BACK PAIN. FREQUENT FALLS. History of Any Multi-Drug Resistant Organisms: ESBL, MRSA Date of last positivie culture/infection: 09/21/18 MRSA; 08/26/17 ESBL Klebsiella MDRO Source:: Back-MRSA; Urine-ESBL Past Surgical History: Adenoidectomy, Appendectomy, Back Surgery, Bowel Resection, Breast Surgery, Heart Catheterization, Hysterectomy, Tonsillectomy, Uterine Ablation Additional Past Surgical History / Comment(s): PERMANENT COLOSTOMY. throat surgery removed uvula,L3-L4 two fractured vertebrae, sofi cataracts, kyphoplasty L4, PICCLINE IN MAY FOR ABX(PNE) SINCE REMOVED. PICC LINE PLACEMENT, COLONOSCOPY, EGD, UTI 08/2017 Past Anesthesia/Blood Transfusion Reactions: No Reported Reaction Additional Past Anesthesia/Blood Transfusion Reaction / Comment(s): HX OF BLOOD TRANSFUSION Past Psychological History: No Psychological Hx Reported Additional Psychological History / Comment(s): cared for in the family home by the and children. Retired. No experience. No international travel. No tobacco or alcohol use. No animal exposures Smoking Status: Never smoker Past Alcohol Use History: None Reported Additional Past Alcohol Use History / Comment(s): cared for in the family home by the and children. Retired. No experience. No international travel. No tobacco or alcohol use. No animal exposures Past Drug Use History: None Reported - Past Family History Mother History Unknown: Yes Family Medical History: Dialysis, Renal Disease Brother(s) History Unknown: Yes Family Medical History: No Reported History Sister(s) History Unknown: Yes Family Medical History: No Reported History Additional Family Medical History / Comment(s): Parkinsons Father Family Medical History: Cancer, CVA/TIA Additional Family Medical History / Comment(s): 3 out of 4 siblings dx. autoimmune disease Medications and Allergies Home Medications Medication Instructions Recorded Confirmed Type OLANZapine [ZyPREXA] 10 mg PO HS 08/29/15 02/15/19 History Escitalopram [Lexapro] 10 mg PO DAILY 08/27/18 02/15/19 History Lisinopril [Zestril] 2.5 mg PO DAILY 09/19/18 02/15/19 History Pilocarpine HCl [Salagen] 7.5 mg PO TID 09/19/18 02/15/19 History Sennosides/Docusate Sodium [Dok 1 tab PO BID 09/19/18 02/15/19 History Plus Tablet] Gabapentin [Neurontin] 300 mg PO BID #6 cap 09/21/18 02/15/19 Rx oxyCODONE-APAP 7.5-325MG [Percocet 0.5 tab PO Q6H PRN 02/04/19 02/15/19 History 7.5-325 mg] Ascorbic Acid [Vitamin C] 500 mg PO DAILY 02/14/19 02/15/19 History Cholecalciferol [Vitamin D3 (25 1,000 unit PO DAILY 02/14/19 02/15/19 History Mcg = 1000 Iu)] L.acidoph,Paracasei, B.lactis 1 cap PO DAILY 02/14/19 02/15/19 History [Probiotic] Lansoprazole [Prevacid] 15 mg PO BID 02/14/19 02/15/19 History Multivitamins, Thera [Multivitamin 1 tab PO DAILY 02/14/19 02/15/19 History (formulary)] Polyethylene Glycol 3350 [Miralax] 17 gm PO DAILY PRN 02/14/19 02/15/19 History Vit C/E/Zn/Coppr/Lutein/Zeaxan 1 cap PO DAILY 02/14/19 02/15/19 History [Preservision Areds 2 Softgel] Isopto Tears 1 drop BOTH EYES DAILY PRN 02/15/19 02/15/19 History Tolterodine Tartrate [Detrol LA] 4 mg PO Q48H 02/15/19 02/15/19 History Allergies Allergy/AdvReac Type Severity Reaction Status Date / Time aspirin Allergy Anaphylaxis Verified 02/15/19 10:21 caffeine Allergy CREATES Verified 02/15/19 10:21 TOO MUCH STOMACH ACID celecoxib [From Celebrex] Allergy Rash/Hives Verified 02/15/19 10:21 codeine Allergy Anaphylaxis Verified 02/15/19 10:21 doxycycline Allergy Unknown Verified 02/15/19 10:21 hydrocodone bitartrate Allergy Unknown Verified 02/15/19 10:21 [From [place]] milk Allergy Rash/Hives Verified 02/15/19 10:21 Penicillins Allergy Rash/Hives Verified 02/15/19 10:21 rofecoxib [From Vioxx] Allergy Rash/Hives Verified 02/15/19 10:21 clarithromycin [From Biaxin] AdvReac Nausea Verified 02/15/19 10:21 clindamycin AdvReac Nausea Verified 02/15/19 10:21 levofloxacin [From Levaquin] AdvReac Nausea Verified 02/15/19 10:21 Morpholine Analogues AdvReac Confusion Verified 02/15/19 10:21 ranitidine HCl [From Zantac] AdvReac Rash/Hives Verified 02/15/19 10:21 Physical Exam Vitals: Vital Signs Temp Pulse Pulse Pulse Pulse Resp BP 02/15/19 08:00 97.6 F 93 20 02/14/19 22:42 97.3 F L 101 H 101 H 18 02/14/19 21:18 98.3 F 108 H 18 122/72 02/14/19 19:38 109 H 20 130/76 02/14/19 19:36 101 F H 112 H 20 130/70 BP Pulse Ox 02/15/19 08:00 130/62 99 02/14/19 22:42 121/63 98 02/14/19 21:18 99 02/14/19 19:38 100 02/14/19 19:36 98 Intake and Output 02/14/19 02/15/19 02/15/19 22:59 06:59 14:59 Other: Voiding Method Incontinent Weight 61.235 kg 65 kg General appearance: cooperative, no acute distress - EENT Eyes: anicteric sclerae, EOMI, PERRLA, dentition normal ENT: no hard of hearing, no hearing grossly normal, NA/AT, normal oropharynx, no other, no pharyngeal erythema, no thrush, no tonsillar exudates, no tonsillar swelling - Neck Neck: normal ROM - Respiratory Respiratory: bilateral: CTA, negative: diminished, dullness - Cardiovascular Rhythm: regular Heart sounds: normal: S1, S2 Abnormal Heart Sounds: no systolic murmur, no diastolic murmur, no rub, no S3 Gallop, no S4 Gallop, no click, no other Left breast tender to touch, no lumps noted. Positive inverted nipple, no discharge, no open wounds. - Gastrointestinal General gastrointestinal: normal bowel sounds, soft Colostomy in place - Integumentary Integumentary: decreased turgor, normal - Neurologic Neurologic: CNII-XII intact - Musculoskeletal Musculoskeletal: generalized weakness, strength equal bilaterally - Psychiatric Psychiatric: A&O x's 3, appropriate affect Results CBC & Chem 7: 02/15/19 09:47 02/14/19 19:52 Labs: Abnormal Lab Results - Last 24 Hours (Table) 02/14/19 02/14/19 02/14/19 Range/Units 19:52 19:52 20:14 WBC 16.8 H (3.8-10.6) k/uL Neutrophils # 14.7 H (1.3-7.7) k/uL Sodium 134 L (137-145) mmol/L BUN 23 H (7-17) mg/dL Glucose 131 H (74-99) mg/dL Total Protein 6.2 L (6.3-8.2) g/dL Albumin 3.3 L (3.5-5.0) g/dL Urine Appearance Cloudy H (Clear) Urine Protein 1+ H (Negative) Urine Blood Small H (Negative) Urine Nitrite Positive H (Negative) Ur Leukocyte Esterase Large H (Negative) Urine RBC 39 H (0-5) /hpf Urine WBC >182 H (0-5) /hpf Urine WBC Clumps Few H (None) /hpf Urine Bacteria Rare H (None) /hpf Urine Mucus Rare H (None) /hpf Microbiology - Last 24 Hours (Table) 02/14/19 20:14 Urine Culture - Preliminary Urine,Voided Thrombosis Risk Factor Assmnt - DVT/VTE Prophylaxis DVT/VTE Prophylaxis: Pharmacologic Prophylaxis ordered - Choose All That Apply Each Risk Factor Represents 3 Points: Age 75 years or older Thrombosis Risk Factor Assessment Total Risk Factor Score: 3 Thrombosis Risk Factor Assessment Level: Moderate Risk Assessment and Plan Plan: 1. Sepsis secondary to acute urinary tract infection. Urine and blood cultures are in progress. Patient is on Rocephin and vancomycin. Consult with Dr. Grace. Renal ultrasound ordered. 2. Left breast pain. Cardiology consult appreciated. Patient continues to have complaints of pain, ultrasound may be ordered. 3. Decubitus ulcer on her back. Consult wound care. 4. Osteoporosis with history of osteoporotic fractures of right superior inferior pubic. Continue vitamin D. 5. Chronic kidney failure CKD stage II, at baseline. Avoid nephrotoxic agents. 6. CAD and non-ischemic cardiomyopathy and chronic diastolic heart failure with ejection fraction of 50%. 7. Hypertension. Continue lisinopril 2.5 mg daily. 8. Sjogren syndrome: Patient using Salagen and eyedrops. Continue PreserVision 9. Chronic anemia history of GI bleed without any recent bleeding. Check for iron deficiency and vitamin B12 deficiency 10. Chronic pain syndrome: Patient has been on Percocet. Continue Neurontin 300 mg twice daily. 11. Overactive bladder: Has been on Detrol. 12. Mild memory loss: No change, continue conservative management. 13. History of colon cancer, colostomy bag, stable 14. DVT prophylaxis. Lovenox. 15. GI prophylaxis. Protonix. 16. Recurrent depression. Continue Zyprexa and Lexapro. Patient admitted to the hospital for a minimum of 2 nights today. Discharge plan: To be determined Impression and plan of care have been directed as dictated by the signing physician. Caitlin Francis nurse practitioner acting as scribe for signing physician.
--- NOTE | 2019-02-15 14:29 | P.CONS ---
History of Present Illness - Reason for Consult Consult date: 02/15/19 Recurrent urinary tract infections - Chief Complaint Weakness - History of Present Illness This is an 83-year-old female patient well-known to ID service with past medical history of asthma, CAD with ischemic cardiomyopathy, previous history of lung cancer post resection who is known to have severe lower back pain, history of Klebsiella pneumoniae ESBL urinary tract infection, memory impairment, rectal cancer requiring colostomy bag. Patient complains of feeling ill for the past 1 week. She complains of generalized weakness lethargy and fever along with back pain. She gives history of frequent urinary tract infections and a weak bladder. She also Complains of pain in the left breast area. Her last mammogram was one and half years ago. Patient has chronically inverted nipple and has noted no change in size, lumps or discharge. Patient is also noted to have a wound on her back present on presentation. Patient denies any shortness of breath or cough. Patient lives at home with her . She has been at [facility] for subacute rehab in the past. She was brought into [facility] emergency center for evaluation and found to have a temperature of 101, tachycardia 112, leukocytosis of 16.8, blood pressure was 130/70 and pulse ox 90% on room air. EKG was sinus tachycardia with no ST changes. BUN 23 and creatinine 0.96, blood sugar 131, albumin 3.3, influenza testing negative. Lactic acid 1.1, troponin negative. Urinalysis cloudy, nitrate positive, leukoesterase large, WBCs greater than 182, WBC clumps few, bacteria rare. Chest x-ray revealed fibrotic changes and atelectasis slightly worse from last exam. No obvious heart failure. Patient was started on Rocephin and vancomycin and admitted to the cardiac stepdown unit. Wound consult regarding back wound. Blood culture and urine culture are in progress. Previous urine cultures from November and December were positive for MRSA. A renal ultrasound reveals no hydronephrosis. No nephrolithiasis. Urinary bladder is an echoic. Bilateral ureteral jets are seen. Nonspecific right renal lesion. Review of Systems Constitutional: Reports anorexia, Reports chills, Reports fatigue, Reports fever, Reports lethargy, Reports malaise, Reports poor appetite Eyes: denies blurred vision, denies pain Ears, nose, mouth and throat: Denies headache, Denies nasal congestion, Denies nasal discharge, Denies sore throat, Denies vertigo Breasts: Reports as per HPI Cardiovascular: Denies chest pain, Denies dyspnea on exertion, Denies edema, Denies leg edema, Denies lightheadedness, Denies shortness of breath, Denies syncope Respiratory: Denies cough, Denies cough with sputum, Denies dyspnea, Denies hemoptysis, Denies wheezing Gastrointestinal: Reports abdominal pain, Denies diarrhea, Denies nausea, Denies vomiting Genitourinary: Reports dysuria, Reports incomplete emptying, Reports mixed incontinence, Denies hematuria Musculoskeletal: Reports gait dysfunction, Reports muscle weakness, Denies myalgias Integumentary: Reports wounds, Denies pruritus, Denies rash Neurological: Denies change in mentation, Denies change in speech, Denies numbness, Denies seizures, Denies weakness Psychiatric: Denies anxiety, Denies depression Endocrine: Denies fatigue, Denies weight change Past Medical History Past Medical History: Asthma, Coronary Artery Disease (CAD), Cancer, Hypertension, Memory Impairment, Musculoskeletal Disorder, Osteoarthritis (OA), Sleep Apnea/CPAP/BIPAP Additional Past Medical History / Comment(s): Sjogren syndrome, RECTAL CANCER WITH COLOSTOMY , anemia, OVER ACTIVE BLADDER, hx. L4 fracture, BRONCH WASHING WAS POSITIVE FOR KLEBSIELLA PNUEMONAE., BACK PAIN. FREQUENT FALLS. History of Any Multi-Drug Resistant Organisms: ESBL, MRSA Year Discovered:: 09/21/18 MRSA; 08/26/17 ESBL Klebsiella MDRO Source:: Back-MRSA; Urine-ESBL Past Surgical History: Adenoidectomy, Appendectomy, Back Surgery, Bowel Resection, Breast Surgery, Heart Catheterization, Hysterectomy, Tonsillectomy, Uterine Ablation Additional Past Surgical History / Comment(s): PERMANENT COLOSTOMY. throat surgery removed uvula,L3-L4 two fractured vertebrae, sofi cataracts, kyphoplasty L4, PICCLINE IN MAY FOR ABX(PNE) SINCE REMOVED. PICC LINE PLACEMENT, COLONOSCOPY, EGD, UTI 08/2017 Past Anesthesia/Blood Transfusion Reactions: No Reported Reaction Additional Past Anesthesia/Blood Transfusion Reaction / Comm: HX OF BLOOD TRANSFUSION Past Psychological History: No Psychological Hx Reported Additional Psychological History / Comment(s): cared for in the family home by the and children. Retired. No experience. No international travel. No tobacco or alcohol use. No animal exposures Smoking Status: Never smoker Past Alcohol Use History: None Reported Additional Past Alcohol Use History / Comment(s): cared for in the family home by the and children. Retired. No experience. No international travel. No tobacco or alcohol use. No animal exposures Past Drug Use History: None Reported - Past Family History Mother History Unknown: Yes Family Medical History: Dialysis, Renal Disease Brother(s) History Unknown: Yes Family Medical History: No Reported History Sister(s) History Unknown: Yes Family Medical History: No Reported History Additional Family Medical History / Comment(s): Parkinsons Father Family Medical History: Cancer, CVA/TIA Additional Family Medical History / Comment(s): 3 out of 4 siblings dx. autoimmune disease Medications and Allergies Home Medications Medication Instructions Recorded Confirmed Type OLANZapine [ZyPREXA] 10 mg PO HS 08/29/15 02/15/19 History Escitalopram [Lexapro] 10 mg PO DAILY 08/27/18 02/15/19 History Lisinopril [Zestril] 2.5 mg PO DAILY 09/19/18 02/15/19 History Pilocarpine HCl [Salagen] 7.5 mg PO TID 09/19/18 02/15/19 History Sennosides/Docusate Sodium [Dok 1 tab PO BID 09/19/18 02/15/19 History Plus Tablet] Gabapentin [Neurontin] 300 mg PO BID #6 cap 09/21/18 02/15/19 Rx oxyCODONE-APAP 7.5-325MG [Percocet 0.5 tab PO Q6H PRN 02/04/19 02/15/19 History 7.5-325 mg] Ascorbic Acid [Vitamin C] 500 mg PO DAILY 02/14/19 02/15/19 History Cholecalciferol [Vitamin D3 (25 1,000 unit PO DAILY 02/14/19 02/15/19 History Mcg = 1000 Iu)] L.acidoph,Paracasei, B.lactis 1 cap PO DAILY 02/14/19 02/15/19 History [Probiotic] Lansoprazole [Prevacid] 15 mg PO BID 02/14/19 02/15/19 History Multivitamins, Thera [Multivitamin 1 tab PO DAILY 02/14/19 02/15/19 History (formulary)] Polyethylene Glycol 3350 [Miralax] 17 gm PO DAILY PRN 02/14/19 02/15/19 History Vit C/E/Zn/Coppr/Lutein/Zeaxan 1 cap PO DAILY 02/14/19 02/15/19 History [Preservision Areds 2 Softgel] Isopto Tears 1 drop BOTH EYES DAILY PRN 02/15/19 02/15/19 History Tolterodine Tartrate [Detrol LA] 4 mg PO Q48H 02/15/19 02/15/19 History Allergies Allergy/AdvReac Type Severity Reaction Status Date / Time aspirin Allergy Anaphylaxis Verified 02/15/19 10:21 caffeine Allergy CREATES Verified 02/15/19 10:21 TOO MUCH STOMACH ACID celecoxib [From Celebrex] Allergy Rash/Hives Verified 02/15/19 10:21 codeine Allergy Anaphylaxis Verified 02/15/19 10:21 doxycycline Allergy Unknown Verified 02/15/19 10:21 hydrocodone bitartrate Allergy Unknown Verified 02/15/19 10:21 [From Gary] milk Allergy Rash/Hives Verified 02/15/19 10:21 Penicillins Allergy Rash/Hives Verified 02/15/19 10:21 rofecoxib [From Vioxx] Allergy Rash/Hives Verified 02/15/19 10:21 clarithromycin [From Biaxin] AdvReac Nausea Verified 02/15/19 10:21 clindamycin AdvReac Nausea Verified 02/15/19 10:21 levofloxacin [From Levaquin] AdvReac Nausea Verified 02/15/19 10:21 Morpholine Analogues AdvReac Confusion Verified 02/15/19 10:21 ranitidine HCl [From Zantac] AdvReac Rash/Hives Verified 02/15/19 10:21 Physical Exam Vitals: Vital Signs Temp Pulse Pulse Pulse Pulse Resp BP 02/15/19 08:00 97.6 F 93 20 02/14/19 22:42 97.3 F L 101 H 101 H 18 02/14/19 21:18 98.3 F 108 H 18 122/72 02/14/19 19:38 109 H 20 130/76 02/14/19 19:36 101 F H 112 H 20 130/70 BP Pulse Ox 02/15/19 08:00 130/62 99 02/14/19 22:42 121/63 98 02/14/19 21:18 99 02/14/19 19:38 100 02/14/19 19:36 98 Intake and Output 02/14/19 02/15/19 02/15/19 22:59 06:59 14:59 Other: Voiding Method Incontinent # Voids 3 Weight 61.235 kg 65 kg Gen: This is an 83-year-old female. Patient is resting in bed appears to be comfortable. HEENT: Head is atraumatic, normocephalic. Pupils equal, round. Sclerae is a nicteric. NECK: Supple. No JVD. No lymphadenopathy. No thyromegaly. LUNGS: Clear to auscultation. No wheezes or rhonchi. No intercostal retractions. HEART: Regular rate and rhythm. No murmur. BREAST: Left breast reveals inverted nipple, no discharge, no open wounds, left breast is tender to touch. No lumps or masses palpated. ABDOMEN: Soft. Bowel sounds are present. No masses. No tenderness. A colostomy in place. EXTREMITIES: No pedal edema. No calf tenderness. NEUROLOGICAL: Patient is awake, alert and oriented x3. Cranial nerves 2 through 12 are grossly intact. Results Results: Laboratory Results WBC 11.4 k/uL (3.8-10.6) H 02/15/19 09:47 RBC 3.46 m/uL (3.80-5.40) L 02/15/19 09:47 Hgb 10.8 gm/dL (11.4-16.0) L 02/15/19 09:47 Hct 35.3 % (34.0-46.0) 02/15/19 09:47 MCV 102.1 fL (80.0-100.0) H D 02/15/19 09:47 MCH 31.1 pg (25.0-35.0) 02/15/19 09:47 MCHC 30.5 g/dL (31.0-37.0) L 02/15/19 09:47 RDW 13.1 % (11.5-15.5) 02/15/19 09:47 Plt Count 172 k/uL (150-450) 02/15/19 09:47 Neutrophils % 87 % 02/15/19 09:47 Lymphocytes % 6 % 02/15/19 09:47 Monocytes % 4 % 02/15/19 09:47 Eosinophils % 2 % 02/15/19 09:47 Basophils % 0 % 02/15/19 09:47 Neutrophils # 9.9 k/uL (1.3-7.7) H 02/15/19 09:47 Lymphocytes # 0.7 k/uL (1.0-4.8) L 02/15/19 09:47 Monocytes # 0.5 k/uL (0-1.0) 02/15/19 09:47 Eosinophils # 0.2 k/uL (0-0.7) 02/15/19 09:47 Basophils # 0.0 k/uL (0-0.2) 02/15/19 09:47 Hypochromasia Marked 02/15/19 09:47 Macrocytosis Slight 02/15/19 09:47 PT 10.8 sec (9.0-12.0) 02/14/19 19:52 INR 1.0 (<1.2) 02/14/19 19:52 APTT 30.0 sec (22.0-30.0) 02/14/19 19:52 Sodium 134 mmol/L (137-145) L 02/14/19 19:52 Potassium 4.5 mmol/L (3.5-5.1) 02/14/19 19:52 Chloride 101 mmol/L (98-107) 02/14/19 19:52 Carbon Dioxide 26 mmol/L (22-30) 02/14/19 19:52 Anion Gap 7 mmol/L 02/14/19 19:52 BUN 23 mg/dL (7-17) H 02/14/19 19:52 Creatinine 0.96 mg/dL (0.52-1.04) 02/14/19 19:52 Est GFR (CKD-EPI)AfAm 63 (>60 ml/min/1.73 sqM) 02/14/19 19:52 Est GFR (CKD-EPI)NonAf 55 (>60 ml/min/1.73 sqM) 02/14/19 19:52 Glucose 131 mg/dL (74-99) H 02/14/19 19:52 Plasma Lactic Acid Ric 1.1 mmol/L (0.7-2.0) 02/14/19 19:52 Calcium 8.4 mg/dL (8.4-10.2) 02/14/19 19:52 Total Bilirubin 0.8 mg/dL (0.2-1.3) 02/14/19 19:52 AST 31 U/L (14-36) 02/14/19 19:52 ALT 20 U/L (9-52) 02/14/19 19:52 Alkaline Phosphatase 105 U/L (38-126) 02/14/19 19:52 Troponin I <0.012 ng/mL (0.000-0.034) 02/15/19 09:47 Total Protein 6.2 g/dL (6.3-8.2) L 02/14/19 19:52 Albumin 3.3 g/dL (3.5-5.0) L 02/14/19 19:52 Urine Color Yellow 02/14/19 20:14 Urine Appearance Cloudy (Clear) H 02/14/19 20:14 Urine pH 7.0 (5.0-8.0) 02/14/19 20:14 Ur Specific [place] 1.018 (1.001-1.035) 02/14/19 20:14 Urine Protein 1+ (Negative) H 02/14/19 20:14 Urine Glucose (UA) Negative (Negative) 02/14/19 20:14 Urine Ketones Negative (Negative) 02/14/19 20:14 Urine Blood Small (Negative) H 02/14/19 20:14 Urine Nitrite Positive (Negative) H 02/14/19 20:14 Urine Bilirubin Negative (Negative) 02/14/19 20:14 Urine Urobilinogen <2.0 mg/dL (<2.0) 02/14/19 20:14 Ur Leukocyte Esterase Large (Negative) H 02/14/19 20:14 Urine RBC 39 /hpf (0-5) H 02/14/19 20:14 Urine WBC >182 /hpf (0-5) H 02/14/19 20:14 Urine WBC Clumps Few /hpf (None) H 02/14/19 20:14 Urine Bacteria Rare /hpf (None) H 02/14/19 20:14 Urine Mucus Rare /hpf (None) H 02/14/19 20:14 Influenza Type A RNA Not Detected (Not Detectd) 02/14/19 19:25 Influenza Type B (PCR) Not Detected (Not Detectd) 02/14/19 19:25 CBC & Chem 7: 02/15/19 09:47 02/14/19 19:52 Labs: Abnormal Lab Results - Last 24 Hours (Table) 02/14/19 02/14/19 02/14/19 Range/Units 19:52 19:52 20:14 WBC 16.8 H (3.8-10.6) k/uL Neutrophils # 14.7 H (1.3-7.7) k/uL Sodium 134 L (137-145) mmol/L BUN 23 H (7-17) mg/dL Glucose 131 H (74-99) mg/dL Total Protein 6.2 L (6.3-8.2) g/dL Albumin 3.3 L (3.5-5.0) g/dL Urine Appearance Cloudy H (Clear) Urine Protein 1+ H (Negative) Urine Blood Small H (Negative) Urine Nitrite Positive H (Negative) Ur Leukocyte Esterase Large H (Negative) Urine RBC 39 H (0-5) /hpf Urine WBC >182 H (0-5) /hpf Urine WBC Clumps Few H (None) /hpf Urine Bacteria Rare H (None) /hpf Urine Mucus Rare H (None) /hpf Microbiology - Last 24 Hours (Table) 02/14/19 20:14 Urine Culture - Preliminary Urine,Voided Assessment and Plan Plan: This is an 83-year-old female well-known to ID service, presented to the hospital with sepsis secondary to acute urinary tract infection. Urine and blood cultures are in progress. Patient is on Rocephin and vancomycin. Renal ultrasound revealed no hydronephrosis. Patient also presented with decubitus ulcer on her back and wound care has addressed with local wound care. Continue supportive care. Further recommendations as patient progresses. The above dictated assessment and findings were discussed with Dr. Grace. The impression and plan of care have been directed as dictated. Caitlin Francis nurse practitioner acting as scribe for Dr. Grace.
[2019-02-15] MEDS: OLANZapine 10 MG TAB PO SCH (20:33)
[2019-02-15] MEDS: PILOCARPINE 5 MG TAB PO SCH (20:33)
[2019-02-15] MEDS: SENNOSIDES-DOCUSATE SODIUM 1 EACH TAB PO SCH (20:33)
[2019-02-15] MEDS: oxyCODONE-APAP 7.5-325MG 1 EACH TAB PO SCH (20:33)
--- NOTE | 2019-02-15 20:49 | P.CON ---
Consult Note - . Consult date: 02/15/19 Assessment/Plan:: This is an 83-year-old female patient well-known to ID service with past medical history of asthma, CAD with ischemic cardiomyopathy, previous history of lung cancer post resection who is known to have severe lower back pain, history of Klebsiella pneumoniae ESBL urinary tract infection, memory impairment, rectal cancer requiring colostomy bag. Patient complains of feeling ill for the past 1 week. She complains of generalized weakness lethargy and fever along with back pain. She gives history of frequent urinary tract infections and a weak bladder. She also Complains of pain in the left breast area. Her last mammogram was one and half years ago. Patient has chronically inverted nipple and has noted no change in size, lumps or discharge. Patient is also noted to have a wound on her back present on presentation. Patient denies any shortness of breath or cough. Patient lives at home with her . She has been at [facility] for subacute rehab in the past. She was brought into [facility] emergency center for evaluation and found to have a temperature of 101, tachycardia 112, leukocytosis of 16.8, blood pressure was 130/70 and pulse ox 90% on room air. EKG was sinus tachycardia with no ST changes. BUN 23 and creatinine 0.96, blood sugar 131, albumin 3.3, influenza testing negative. Lactic acid 1.1, troponin negative. Urinalysis cloudy, nitrate positive, leukoesterase large, WBCs greater than 182, WBC clumps few, bacteria rare. Chest x-ray revealed fibrotic changes and atelectasis slightly worse from last exam. No obvious heart failure. Patient was started on Rocephin and vancomycin and admitted to the cardiac stepdown unit. Wound consult regarding back wound. Blood culture and urine culture are in progress. Previous urine cultures from November and December were positive for MRSA. A renal ultrasound reveals no hydronephrosis. No nephrolithiasis. Urinary bladder is an echoic. Bilateral ureteral jets are seen. Nonspecific right renal lesion. Please see the consult note is dictated by nurse practitioner Jorge Caitlin Francis. His pleasant 83 presents to hospital with fever and altered mental status and is now starting to feel slightly better after hydration and started antibiotic therapy. Elder is presently relates to the noted improvement of her mental status. It is noted she has leukocytosis evidence of abnormal urinalysis and urine culture is pending. Cultures are showing multiple pathogens which include MRSA and ESBL E. coli. However at this time she is responding to fluids and antibiotic therapy with Rocephin and this will continue for now and further culture results will direct any needed changes of antimicrobial therapy. Renal ultrasound without evidence of obstruction or stone. It is noted she already started to have improvement a nd expected to have ongoing continuation of this Improvement.
[2019-02-16 07:37] LABS: HCT 33.7 % (34.0-46.0); HGB 10.5 gm/dL (11.4-16.0); Hypochromasia Slight; MCH 30.6 pg (25.0-35.0); MCHC 31.1 g/dL (31.0-37.0); MCV 98.4 fL (80.0-100.0); Mean Platelet Volume 7.1; Platelet Count 210 k/uL (150-450); RBC 3.42 m/uL (3.80-5.40); RDW 13.1 % (11.5-15.5); WBC 9.1 k/uL (3.8-10.6)
[2019-02-16 07:52] LABS: Potassium 4.2 mmol/L (3.5-5.1)
[2019-02-16] MEDS: PANTOPRAZOLE 40 MG TABLET PO SCH ×2 (08:59→20:37)
[2019-02-16] MEDS: oxyCODONE-APAP 7.5-325MG 1 EACH TAB PO SCH ×2 (08:59→20:36)
[2019-02-16] MEDS: OXYBUTYNIN XL 5 MG TAB.ER.24 PO SCH (08:59)
[2019-02-16] MEDS: SENNOSIDES-DOCUSATE SODIUM 1 EACH TAB PO SCH ×2 (08:59→20:37)
[2019-02-16] MEDS: MULTIVITAMINS, THERA 1 EACH TAB PO SCH (09:00)
[2019-02-16] MEDS: LISINOPRIL 2.5 MG TAB PO SCH (09:00)
[2019-02-16] MEDS: LACTOBACILLUS ACIDOPH & BULGAR 1 EACH PACKET PO SCH (09:00)
[2019-02-16] MEDS: GABAPENTIN 300 MG CAP PO SCH ×2 (09:00→20:36)
[2019-02-16] MEDS: ENOXAPARIN 40 MG/0.4 ML SYRINGE SQ SCH (09:00)
[2019-02-16] MEDS: VANCOMYCIN 1,000 MG in SODIUM CHLORIDE 0.9% 250 ML IVPB SCH (10:38)
[2019-02-16] MEDS ORDERED: FUROSEMIDE 10 MG/ML 2 ML VIAL IV ONE (10:45)
[2019-02-16] MEDS: PILOCARPINE 5 MG TAB PO SCH ×2 (13:13→20:37)
[2019-02-16] MEDS: ESCITALOPRAM 10 MG TAB PO SCH (13:13)
[2019-02-16] MEDS: VIT A,C & E-LUTEIN-MINERALS 1 EACH TAB PO SCH (13:13)
--- NOTE | 2019-02-16 13:56 | XR ---
EXAMINATION TYPE: XR chest 2V DATE OF EXAM: 02/16/2019 COMPARISON: Chest x-ray 2 days ago. HISTORY: Fever and weakness. TECHNIQUE: Frontal and lateral views of the chest are obtained. FINDINGS: The osseous structures remain demineralized. Exaggerated kyphosis with multiple compressio n type fractures are again seen. Multilevel vertebroplasty is redemonstrated. Dextroconvex scoliosis lumbar spine redemonstrated. Old malunion fracture deformity right proximal humerus. Persistent cardi omegaly with atherosclerotic thoracic aorta. Persistent small to moderate right greater than left ple ural effusions and central vascular congestion along with bibasilar opacities. IMPRESSION: Low lung volumes and cardiomegaly with small to moderate right greater than left pleural effusions and mild to moderate central vascular congestion along with bibasilar acute infiltrate and/ or atelectasis are all redemonstrated.
--- NOTE | 2019-02-16 14:55 | P.PN ---
Subjective Progress Note Date: 02/16/19 This is an 83-year-old female patient of Dr. Garcia and Dr. Pulido with past medical history of asthma, CAD with ischemic cardiomyopathy, previous history of lung cancer post resection who is known to have severe lower back pain, history of Klebsiella pneumoniae ESBL urinary tract infection, memory impairment, rectal cancer requiring colostomy bag. Patient complains of feeling ill for the past 1 week. She complains of generalized weakness lethargy and fever along with back pain. She gives history of frequent urinary tract infections and a weak bladder. She also Complains of pain in the left breast area. Her last mammogram was one and half years ago. Patient has chronically inverted nipple and has noted no change in size, lumps or discharge. Patient is also noted to have a wound on her back present on presentation. Patient denies any shortness of breath or cough. Patient lives at home with her . She has been at [facility] for subacute rehab. She was brought into [facility] emergency center for evaluation and found to have a temperature of 101, tachycardia 112, leukocytosis of 16.8, blood pressure was 130/70 and pulse ox 90% on room air. EKG was sinus tachycardia with no ST changes. BUN 23 and creatinine 0.96, blood sugar 131, albumin 3.3, influenza testing negative. Lactic acid 1.1, troponin negative. Urinalysis cloudy, nitrate positive, leukoesterase large, WBCs greater than 182, WBC clumps few, bacteria rare. Chest x-ray revealed fibrotic changes and atelectasis slightly worse from last exam. No obvious heart failure. Patient was started on Rocephin and vancomycin and admitted to the cardiac stepdown unit. Cardiology consult was requested for chest pain and a consult added for Dr. Grace for frequent urinary tract infections. Wound consult regarding back wound. Blood culture and urine culture are in progress. Previous urine cultures from November and December were positive for MRSA. 02/16: Patient has been seen by Dr. Grace with recommendations to continue Rocephin for now pending culture reports. Vancomycin discontinued. Renal ultrasound did not show any evidence of obstruction or stone. Patient has been seen by wound care team with recommendations for honey alginate on Thursday. Patient may go to the wound healing Center as an option at the time of discharge. Discharge plan is to return to [facility] at the time of discharge. Patient has been afebrile since admission, heart rate 100, blood pressure 158/90, pulse ox 97% on room air. WBC has normalized to 9.1, W BC 10.5, platelet count 210, BUN 20 creatinine 0.79, CO2 20. Troponins were negative on 3 draws. Urine culture is showing a gram-negative bacilli. Blood culture no growth at 48 hours. Anticipate discharge back to [facility] on Thursday. Repeat chest x-ray has been ordered for new onset wheezing most likely secondary to fluid overload. IV fluids discontinued. Review of Systems Constitutional: Reports anorexia, Reports chills, Reports fatigue, Reports fever, Reports lethargy, Reports malaise, Reports poor appetite Eyes: denies blurred vision, denies pain Ears, nose, mouth and throat: Denies headache, Denies nasal congestion, Denies nasal discharge, Denies sore throat, Denies vertigo Breasts: Reports as per HPI Cardiovascular: Denies chest pain, Denies dyspnea on exertion, Denies edema, Denies leg edema, Denies lightheadedness, Denies shortness of breath, Denies syncope Respiratory: Denies cough, Denies cough with sputum, reports dyspnea, Denies hemoptysis, Denies wheezing Gastrointestinal: Reports abdominal pain, Denies diarrhea, Denies nausea, Denies vomiting Genitourinary: Reports dysuria, Reports incomplete emptying, Reports mixed incontinence, Denies hematuria Musculoskeletal: Reports gait dysfunction, Reports muscle weakness, Denies myalgias Integumentary: Reports wounds, Denies pruritus, Denies rash Neurological: Denies change in mentation, Denies change in speech, Denies numbness, Denies seizures, Denies weakness Psychiatric: Denies anxiety, Denies depression Endocrine: Denies fatigue, Denies weight change Objective - Vital Signs Vital signs: Vital Signs Temp 98.1 F 02/16/19 07:00 Pulse 100 02/16/19 07:00 Resp 16 02/16/19 07:00 BP 158/90 02/16/19 07:00 Pulse Ox 97 02/16/19 07:00 Intake & Output 02/15/19 02/16/19 02/16/19 18:59 06:59 18:59 Intake Total 480 950 Balance 480 950 Weight 65 kg 63.8 kg Intake: Intake, IV Titration 950 Amount Sodium Chloride 0.9% 1, 900 000 ml @ 75 mls/hr IV . [id number] LORNA Rx#:[id number] cefTRIAXone 1 gm In 50 Sodium Chloride 0.9% 50 ml @ 100 mls/hr IVPB HS LORNA Rx#:[id number] Oral 480 Other: Voiding Method Incontinent Incontinent # Voids 2 1 - Exam General appearance: cooperative, no acute distress - EENT Eyes: anicteric sclerae, EOMI, PERRLA, dentition normal ENT: no hard of hearing, no hearing grossly normal, NA/AT, normal oropharynx, no other, no pharyngeal erythema, no thrush, no tonsillar exudates, no tonsillar swelling - Neck Neck: normal ROM - Respiratory Respiratory: bilateral: Scattered expiratory wheeze, negative: diminished, dullness - Cardiovascular Rhythm: regular Heart sounds: normal: S1, S2 Abnormal Heart Sounds: no systolic murmur, no diastolic murmur, no rub, no S3 Gallop, no S4 Gallop, no click, no other Left breast tender to touch, no lumps noted. Positive inverted nipple, no discharge, no open wounds. - Gastrointestinal General gastrointestinal: normal bowel sounds, soft Colostomy in place - Integumentary Integumentary: decreased turgor, normal - Neurologic Neurologic: CNII-XII intact - Musculoskeletal Musculoskeletal: generalized weakness, strength equal bilaterally - Psychiatric Psychiatric: A&O x's 3, appropriate affect - Labs CBC & Chem 7: 02/16/19 07:07 02/16/19 07:07 Labs: Abnormal Lab Results - Last 24 Hours (Table) 02/15/19 02/16/19 02/16/19 Range/Units 09:47 07:07 07:07 WBC 11.4 H (3.8-10.6) k/uL RBC 3.46 L 3.42 L (3.80-5.40) m/uL Hgb 10.8 L 10.5 L (11.4-16.0) gm/dL Hct 33.7 L (34.0-46.0) % MCV 102.1 H D (80.0-100.0) fL MCHC 30.5 L (31.0-37.0) g/dL Neutrophils # 9.9 H (1.3-7.7) k/uL Lymphocytes # 0.7 L (1.0-4.8) k/uL Chloride 111 H (98-107) mmol/L Carbon Dioxide 20 L (22-30) mmol/L BUN 20 H (7-17) mg/dL Calcium 8.0 L (8.4-10.2) mg/dL Microbiology - Last 24 Hours (Table) 02/14/19 19:52 Blood Culture - Preliminary Blood No Growth after 24 hours 02/14/19 20:14 Urine Culture - Preliminary Urine,Voided Gram Neg Bacilli Assessment and Plan Plan: 1. Sepsis secondary to acute urinary tract infection. Urine and blood cultures are in progress. Continue Rocephin. Consult with Dr. Grace appreciated. Suman al ultrasound as above. 2. Left breast pain. Cardiology consult appreciated. Patient continues to have complaints of pain, ultrasound may be ordered. 3. Decubitus ulcer on her back. Consult wound care, recommendations for honey alginate Thursday. Patient may be candidate for Wound Center. 4. Osteoporosis with history of osteoporotic fractures of right superior inferior pubic. Continue vitamin D. 5. Chronic kidney failure CKD stage II, at baseline. Avoid nephrotoxic agents. 6. CAD and non-ischemic cardiomyopathy and chronic diastolic heart failure with ejection fraction of 50%. 7. Hypertension. Continue lisinopril 2.5 mg daily. 8. Sjogren syndrome: Patient using Salagen and eyedrops. Continue PreserVision 9. Chronic anemia history of GI bleed without any recent bleeding. Check for iron deficiency and vitamin B12 deficiency 10. Chronic pain syndrome: Patient has been on Percocet. Continue Neurontin 300 mg twice daily. 11. Overactive bladder: Has been on Detrol. 12. Mild memory loss: No change, continue conservative management. 13. History of colon cancer, colostomy bag, stable 14. DVT prophylaxis. Lovenox. 15. GI prophylaxis. Protonix. 16. Recurrent depression. Continue Zyprexa and Lexapro. 17. Fluid overload secondary to IV fluid infusion. IV fluids will be discontinued and one dose of IV Lasix given. Chest x-ray ordered. Discharge plan: Return to [facility] Impression and plan of care have been directed as dictated by the signing physician. Caitlin Francis nurse practitioner acting as scribe for signing physician.
--- NOTE | 2019-02-16 20:36 | P.PN ---
Subjective Progress Note Date: 02/16/19 This is an 83-year-old female patient well-known to ID service with past medical history of asthma, CAD with ischemic cardiomyopathy, previous history of lung cancer post resection who is known to have severe lower back pain, history of Klebsiella pneumoniae ESBL urinary tract infection, memory impairment, rectal cancer requiring colostomy bag. Patient complains of feeling ill for the past 1 week. She complains of generalized weakness lethargy and fever along with back pain. She gives history of frequent urinary tract infections and a weak bladder. She also Complains of pain in the left breast area. Her last mammogram was one and half years ago. Patient has chronically inverted nipple and has noted no change in size, lumps or discharge. Patient is also noted to have a wound on her back present on presentation. Patient denies any shortness of breath or cough. Patient lives at home with her . She has been at [facility] for subacute rehab in the past. She was brought into [facility] emergency center for evaluation and found to have a temperature of 101, tachycardia 112, leukocytosis of 16.8, blood pressure was 130/70 and pulse ox 90% on room air. EKG was sinus tachycardia with no ST changes. BUN 23 and creatinine 0.96, blood sugar 131, albumin 3.3, influenza testing negative. Lactic acid 1.1, troponin negative. Urinalysis cloudy, nitrate positive, leukoesterase large, WBCs greater than 182, WBC clumps few, bacteria rare. Chest x-ray revealed fibrotic changes and atelectasis slightly worse from last exam. No obvious heart failure. Patient was started on Rocephin and vancomycin and admitted to the cardiac stepdown unit. Wound consult regarding back wound. Blood culture and urine culture are in progress. Previous urine cultures from November and December were positive for MRSA. A renal ultrasound reveals no hydronephrosis. No nephrolithiasis. Urinary bladder is an echoic. Bilateral ureteral jets are seen. Nonspecific right renal lesion. 02/16/2019 the patient is feeling somewhat better. She denies further fevers or chills. Appetite is slightly improved. Her strength is improved. And she relates that the local wound care seems to be soothing. Objective - Vital Signs Vital signs: Vital Signs Temp 98.4 F 02/16/19 19:55 Pulse 87 02/16/19 19:55 Resp 15 02/16/19 19:55 BP 149/84 02/16/19 19:55 Pulse Ox 97 02/16/19 19:55 Intake & Output 02/16/19 02/16/19 02/17/19 06:59 18:59 06:59 Intake Total 950 50 Balance 950 50 Weight 63.8 kg Intake: Intake, IV Titration 950 Amount Sodium Chloride 0.9% 1, 900 000 ml @ 75 mls/hr IV . [id number] [facility] Rx#:[id number] cefTRIAXone 1 gm In 50 Sodium Chloride 0.9% 50 ml @ 100 mls/hr IVPB HS LORNA Rx#:[id number] Oral 50 Other: Voiding Method Incontinent Incontinent Incontinent # Voids 1 2 - Exam Gen: This is an 83-year-old female. Patient is resting in bed appears to be comfortable. HEENT: Head is atraumatic, normocephalic. Pupils equal, round. Sclerae is anicteric. NECK: Supple. No JVD. No lymphadenopathy. No thyromegaly. LUNGS: Clear to auscultation. No wheezes or rhonchi. No intercostal retractions. HEART: Regular rate and rhythm. No murmur. BREAST: Left breast reveals inverted nipple, no discharge, no open wounds, left breast is tender to touch. No lumps or masses palpated. ABDOMEN: Soft. Bowel sounds are present. No masses. No tenderness. A colostomy in place. EXTREMITIES: No pedal edema. No calf tenderness. NEUROLOGICAL: Patient is awake, alert and oriented x3 - Labs CBC & Chem 7: 02/16/19 07:07 02/16/19 07:07 Labs: Abnormal Lab Results - Last 24 Hours (Table) 02/16/19 02/16/19 Range/Units 07:07 07:07 RBC 3.42 L (3.80-5.40) m/uL Hgb 10.5 L (11.4-16.0) gm/dL Hct 33.7 L (34.0-46.0) % Chloride 111 H (98-107) mmol/L Carbon Dioxide 20 L (22-30) mmol/L BUN 20 H (7-17) mg/dL Calcium 8.0 L (8.4-10.2) mg/dL Microbiology - Last 24 Hours (Table) 02/14/19 19:52 Blood Culture - Preliminary Blood No Growth after 24 hours 02/14/19 20:14 Urine Culture - Preliminary Urine,Voided Gram Neg Bacilli Assessment and Plan (1) Pressure ulcer, upper back Current Visit: Yes Status: Acute Code(s): L89.109 - PRESSURE ULCER OF UNSP PART OF BACK, UNSPECIFIED STAGE SNOMED Code(s): 946618923 (2) UTI (urinary tract infection) Narrative/Plan: This pleasant 83 presents to hospital with fever and altered mental status and is now starting to feel slightly better after hydration and started antibiotic therapy. The patient relates to the noted improvement of her mental status. It is noted she has leukocytosis evidence of abnormal urinalysis and urine culture is pending. Cultures are showing multiple pathogens which include MRSA and ESBL E. coli. However at this time she is responding to fluids and antibiotic therapy with Rocephin and this will continue for now and further culture results will direct any needed changes of antimicrobial therapy. Renal ultrasound without evidence of obstruction or stone. It is noted she already started to have improvement and expected to have ongoing continuation of this Improvement. 02/16/2019 the patient is having some improvement. Urine culture showing evidence of gram-negative bacilli and await the final culture to determine the best possible antibiotic therapy at that time. Continue ongoing supportive care. She's doing well with local wound care which is of the honey alginate which she finds to be quite soothing. Once cultures are available then be able to direct the overall course of antibiotic therapy at discharge. Current Visit: Yes Status: Acute Code(s): N39.0 - URINARY TRACT INFECTION, SITE NOT SPECIFIED SNOMED Code(s): 71381568
[2019-02-16] MEDS: OLANZapine 10 MG TAB PO SCH (20:37)
[2019-02-17 08:05] VITALS: RESP 16
[2019-02-17] MEDS: ENOXAPARIN 40 MG/0.4 ML SYRINGE SQ SCH (09:12)
[2019-02-17] MEDS: oxyCODONE-APAP 7.5-325MG 1 EACH TAB PO SCH ×2 (09:12→20:22)
[2019-02-17] MEDS: MULTIVITAMINS, THERA 1 EACH TAB PO SCH (09:13)
[2019-02-17] MEDS: LACTOBACILLUS ACIDOPH & BULGAR 1 EACH PACKET PO SCH (09:13)
[2019-02-17] MEDS: LISINOPRIL 2.5 MG TAB PO SCH (09:13)
[2019-02-17] MEDS: ESCITALOPRAM 10 MG TAB PO SCH (09:13)
[2019-02-17] MEDS: PILOCARPINE 5 MG TAB PO SCH ×2 (09:13→20:22)
[2019-02-17] MEDS: PANTOPRAZOLE 40 MG TABLET PO SCH ×2 (09:13→20:22)
[2019-02-17] MEDS: SENNOSIDES-DOCUSATE SODIUM 1 EACH TAB PO SCH ×2 (09:13→20:22)
[2019-02-17] MEDS: VIT A,C & E-LUTEIN-MINERALS 1 EACH TAB PO SCH (09:13)
[2019-02-17] MEDS: GABAPENTIN 300 MG CAP PO SCH ×2 (09:13→20:22)
[2019-02-17] MEDS: FUROSEMIDE 10 MG/ML 2 ML VIAL IV SCH ×2 (11:11→20:50)
--- NOTE | 2019-02-17 12:37 | P.PN ---
Subjective Progress Note Date: 02/17/19 This is an 83-year-old female patient of Dr. Garcia and Dr. Pulido with past medical history of asthma, CAD with ischemic cardiomyopathy, previous history of lung cancer post resection who is known to have severe lower back pain, history of Klebsiella pneumoniae ESBL urinary tract infection, memory impairment, rectal cancer requiring colostomy bag. Patient complains of feeling ill for the past 1 week. She complains of generalized weakness lethargy and fever along with back pain. She gives history of frequent urinary tract infections and a weak bladder. She also Complains of pain in the left breast area. Her last mammogram was one and half years ago. Patient has chronically inverted nipple and has noted no change in size, lumps or discharge. Patient is also noted to have a wound on her back present on presentation. Patient denies any shortness of breath or cough. Patient lives at home with her . She has been at [facility] for subacute rehab. She was brought into [facility] emergency center for evaluation and found to have a temperature of 101, tachycardia 112, leukocytosis of 16.8, blood pressure was 130/70 and pulse ox 90% on room air. EKG was sinus tachycardia with no ST changes. BUN 23 and creatinine 0.96, blood sugar 131, albumin 3.3, influenza testing negative. Lactic acid 1.1, troponin negative. Urinalysis cloudy, nitrate positive, leukoesterase large, WBCs greater than 182, WBC clumps few, bacteria rare. Chest x-ray revealed fibrotic changes and atelectasis slightly worse from last exam. No obvious heart failure. Patient was started on Rocephin and vancomycin and admitted to the cardiac stepdown unit. Cardiology consult was requested for chest pain and a consult added for Dr. Grace for frequent urinary tract infections. Wound consult regarding back wound. Blood culture and urine culture are in progress. Previous urine cultures from November and December were positive for MRSA. 02/16: Patient has been seen by Dr. Grace with recommendations to continue Rocephin for now pending culture reports. Vancomycin discontinued. Renal ultrasound did not show any evidence of obstruction or stone. Patient has been seen by wound care team with recommendations for honey alginate on Thursday. Patient may go to the wound healing Center as an option at the time of discharge. Discharge plan is to return to [facility] at the time of discharge. Patient has been afebrile since admission, heart rate 100, blood pressure 158/90, pulse ox 97% on room air. WBC has normalized to 9.1, W BC 10.5, platelet count 210, BUN 20 creatinine 0.79, CO2 20. Troponins were negative on 3 draws. Urine culture is showing a gram-negative bacilli. Blood culture no growth at 48 hours. Anticipate discharge back to [facility] on Thursday. Repeat chest x-ray has been ordered for new onset wheezing most likely secondary to fluid overload. IV fluids discontinued. 02/17: Patient is resting comfortably sitting up in bed. She continues to have wheezing with conversations. Patient denies shortness of breath. Patient states that she is feeling better. Patient will be returning to [facility] tomorrow. Patient is been afebrile since admission, heart rate 98, blood pressure 150/84, pulse ox 96, respirations 16. Repeat chest x-ray shows low lung volumes and cardiomegaly megaly with small to moderate right greater than left pleural effusions and mild to moderate central vascular congestion along with bibasilar acute infiltrate and/or atelectasis Review of Systems Constitutional: Reports anorexia, Reports chills, Reports fatigue, Reports fever, Reports lethargy, Reports malaise, Reports poor appetite Eyes: denies blurred vision, denies pain Ears, nose, mouth and throat: Denies headache, Denies nasal congestion, Denies nasal discharge, Denies sore throat, Denies vertigo Breasts: Reports as per HPI Cardiovascular: Denies chest pain, Denies dyspnea on exertion, Denies edema, Denies leg edema, Denies lightheadedness, Denies shortness of breath, Denies syncope Respiratory: Denies cough, Denies cough with sputum, reports dyspnea, Denies hemoptysis, Denies wheezing Gastrointestinal: Reports abdominal pain, Denies diarrhea, Denies nausea, Denies vomiting Genitourinary: Reports dysuria, Reports incomplete emptying, Reports mixed incontinence, Denies hematuria Musculoskeletal: Reports gait dysfunction, Reports muscle weakness, Denies myalgias Integumentary: Reports wounds, Denies pruritus, Denies rash Neurological: Denies change in mentation, Denies change in speech, Denies numbness, Denies seizures, Denies weakness Psychiatric: Denies anxiety, Denies depression Endocrine: Denies fatigue, Denies weight change Objective - Vital Signs Vital signs: Vital Signs Temp 98.1 F 02/17/19 07:00 Pulse 98 02/17/19 07:00 Resp 16 02/17/19 07:00 BP 152/84 02/17/19 07:00 Pulse Ox 96 02/17/19 07:00 Intake & Output 02/16/19 02/17/19 02/17/19 18:59 06:59 18:59 Intake Total 50 50 Output Total 900 Balance -850 50 Weight 65 kg Intake: Oral 50 50 Output: Urine 900 Other: Voiding Method Incontinent Incontinent Incontinent # Voids 2 1 - Exam General Appearance: Alert, cooperative, no distress, appears stated age. Neck HEENT: Supple, no lymphadenopathy, no thyroid enlargement, no carotid bruits. Lungs: Into sore neck with very wheezes, diminished bases Chest Wall: Chest wall normal expansion with deep inspiration no tenderness and no deformity was found on exam, no costochondral pain or discomfort. Heart: Regular rate and rhythm, S1, S2 normal, no murmur, rub or gallop. Back: Symmetric, no curvature, ROM normal, no CVA tenderness. Abdomen: Soft, non-tender, no rebound or rigidity, no hepatosplenomegaly. Extremities: Extremities normal, atraumatic, no cyanosis or edema. Pulses: 2+ and symmetric. Skin: Skin color, texture, tugor decreased, no rashes. Dressing to thoracic spine. Midline Neurologic: Alert oriented x3 cranial nerves II through XII intact, no motor deficit, no abnormal balance or gait - Labs CBC & Chem 7: 02/16/19 07:07 02/17/19 07:05 Labs: Microbiology - Last 24 Hours (Table) 02/14/19 20:14 Urine Culture - Final Urine,Voided Proteus mirabilis 02/14/19 19:52 Blood Culture - Preliminary Blood No Growth after 48 hours Assessment and Plan Plan: 1. Sepsis secondary to acute urinary tract infection. Urine and blood cultures are in progress. Continue Rocephin. Consult with Dr. Grace appreciated. Renal ultrasound as above. 2. Left breast pain. Cardiology consult appreciated. Patient continues to have complaints of pain, ultrasound impression noted above 3. Decubitus ulcer on her back. Consult wound care, recommendations for honey alginate Thursday. Patient may be candidate for Wound Center. 4. Osteoporosis with history of osteoporotic fractures of right superior inferior pubic. Continue vitamin D. 5. Chronic kidney failure CKD stage II, at baseline. Avoid nephrotoxic agents. 6. CAD and non-ischemic cardiomyopathy and chronic diastolic heart failure with ejection fraction of 50%. 7. Hypertension. Continue lisinopril 2.5 mg daily. 8. Sjogren syndrome: Patient using Salagen and eyedrops. Continue PreserVision 9. Chronic anemia history of GI bleed without any recent bleeding. Check for iron deficiency and vitamin B12 deficiency 10. Chronic pain syndrome: Patient has been on Percocet. Continue Neurontin 300 mg twice daily. 11. Overactive bladder: Has been on Detrol. 12. Mild memory loss: No change, continue conservative management. 13. History of colon cancer, colostomy bag, stable 14. DVT prophylaxis. Lovenox. 15. GI prophylaxis. Protonix. 16. Recurrent depression. Continue Zyprexa and Lexapro. 17. Fluid overload secondary to IV fluid infusion. IV fluids will be discontinued and one dose of IV Lasix given. Chest x-ray impression noted above Discharge plan: Return to [facility] Thursday Impression and plan of care have been directed as dictated by the signing physician. Noreen Moya nurse practitioner acting as scribe for signing physician.
[2019-02-17] MEDS: ACETAMINOPHEN TAB 325 MG TAB PO PRN (17:51)
[2019-02-17] MEDS: OLANZapine 10 MG TAB PO SCH (20:22)
[2019-02-18 04:24] VITALS: PULSE 95
[2019-02-18] MEDS ORDERED: VANCOMYCIN TROUGH DUE 1 EACH MISC MISCELLANE ONE (08:00)
[2019-02-18 08:18] VITALS: BP 169/91; TEMP 97.5
--- NOTE | 2019-02-18 08:37 | P.DS ---
Providers Date of admission: 02/14/19 21:27 Expected date of discharge: 02/18/19 Attending physician: Shimon Garcia Consults: 02/14/19 20:45 Consult Physician Routine Consulting Provider: [facility] Consult Reason/Comments: Chest Pain Do you want consulting provider notified?: Yes 02/15/19 10:01 Consult Physician Routine Consulting Provider: Sudhakar Grace Consult Reason/Comments: frequent UTIs Do you want consulting provider notified?: Yes Primary care physician: Shimon Garcia [facility] Course: This is an 83-year-old female patient of Dr. Garcia and Dr. Pulido with past medical history of asthma, CAD with ischemic cardiomyopathy, previous history of lung cancer post resection who is known to have severe lower back pain, history of Klebsiella pneumoniae ESBL urinary tract infection, memory impairment, rectal cancer requiring colostomy bag. Patient complains of feeling ill for the past 1 week. She complains of generalized weakness lethargy and fev er along with back pain. She gives history of frequent urinary tract infections and a weak bladder. She also Complains of pain in the left breast area. Her last mammogram was one and half years ago. Patient has chronically inverted nipple and has noted no change in size, lumps or discharge. Patient is also noted to have a wound on her back present on presentation. Patient denies any shortness of breath or cough. Patient lives at home with her . She has been at [facility] for subacute rehab. She was brought into [facility] emergency center for evaluation and found to have a temperature of 101, tachycardia 112, leukocytosis of 16.8, blood pressure was 130/70 and pulse ox 90% on room air. EKG was sinus tachycardia with no ST changes. BUN 23 and creatinine 0.96, blood sugar 131, albumin 3.3, influenza testing negative. Lactic acid 1.1, troponin negative. Urinalysis cloudy, nitrate positive, leukoesterase large, WBCs greater than 182, WBC clumps few, bacteria rare. Chest x-ray revealed fibrotic changes and atelectasis slightly worse from last exam. No obvious heart failure. Patient was started on Rocephin and vancomycin and admitted to the cardiac stepdown unit. Cardiology consult was requested for chest pain and a consult added for Dr. Grace for frequent urinary tract infections. Wound consult regarding back wound. Blood culture and urine culture are in progress. Previous urine cultures from November and December were positive for MRSA. 02/16: Patient has been seen by Dr. Grace with recommendations to continue Rocephin for now pending culture reports. Vancomycin discontinued. Renal ultrasound did not show any evidence of obstruction or stone. Patient has been seen by wound care team with recommendations for honey alginate on Thursday. Patient may go to the wound healing Center as an option at the time of discharge. Discharge plan is to return to [facility] at the time of discharge. Patient has been afebrile since admission, heart rate 100, blood pressure 158/90, pulse ox 97% on room air. WBC has normalized to 9.1, W BC 10.5, platelet count 210, BUN 20 creatinine 0.79, CO2 20. Troponins were negative on 3 draws. Urine culture is showing a gram-negative bacilli. Blood culture no growth at 48 hours. Anticipate discharge back to [facility] on Thursday. Repeat chest x-ray has been ordered for new onset wheezing most likely secondary to fluid overload. IV fluids discontinued. 02/17: Patient is resting comfortably sitting up in bed. She continues to have wheezing with conversations. Patient denies shortness of breath. Patient states that she is feeling better. Patient will be returning to [facility] tomorrow. Patient is been afebrile since admission, heart rate 98, blood pressure 150/84, pulse ox 96, respirations 16. Repeat chest x-ray shows low lung volumes and cardiomegaly megaly with small to moderate right greater than left pleural effusions and mild to moderate central vascular congestion along with bibasilar acute infiltrate and/or atelectasis 02/18: Urine cultures positive for Proteus mirabilis resistant to nitrofurantoin and tetracycline. Blood culture no growth at 72 hours. Patient remains afebrile, heart rate 95, blood pressure 169/91, pulse ox 95% on 2 L nasal cannula. Repeat creatinine 0.96. Patient is currently on Lasix 20 mg IV every 12 hours and will be transitioned to oral. Patient will be dischared back to [facility] in stable condition. Discharge diagnoses: 1. Sepsis secondary to acute urinary tract infection. 2. Left breast pain. 3. Decubitus ulcer on her back. 4. Osteoporosis with history of osteoporotic fractures of right superior inferior pubic. 5. Chronic kidney failure CKD stage II, at baseline. 6. CAD and non-ischemic cardiomyopathy and chronic diastolic heart failure with ejection fraction of 50%. 7. Hypertension. 8. Sjogren syndrome. 9. Chronic anemia history of GI bleed without any recent bleeding. 10. Chronic pain syndrome. 11. Overactive bladder. 12. Mild memory loss. 13. History of colon cancer, colostomy bag, stable 14. Recurrent depression. 15. Fluid overload secondary to IV fluid infusion. 16. Chronic hypoxic respiratory failure, oxygen started. Discharge plan: Return to [facility] Thursday Impression and plan of care have been directed as dictated by the signing physician. Noreen Moya nurse practitioner acting as scribe for signing physician. Patient Condition at Discharge: Good Plan - Discharge Summary New Discharge Prescriptions: New Cephalexin [Keflex] 250 mg PO Q8HR #30 capsule Furosemide [Lasix] 40 mg PO DAILY #30 tablet Potassium Citrate [Potassium Citrate ER] 10 meq PO DAILY #30 tablet.er Continue OLANZapine [ZyPREXA] 10 mg PO HS Escitalopram [Lexapro] 10 mg PO DAILY Sennosides/Docusate Sodium [Dok Plus Tablet] 1 tab PO BID Pilocarpine HCl [Salagen] 7.5 mg PO TID Lisinopril [Zestril] 2.5 mg PO DAILY Vit C/E/Zn/Coppr/Lutein/Zeaxan [Preservision Areds 2 Softgel] 1 cap PO DAILY Lansoprazole [Prevacid] 15 mg PO BID Ascorbic Acid [Vitamin C] 500 mg PO DAILY L.acidoph,Paracasei, B.lactis [Probiotic] 1 cap PO DAILY Polyethylene Glycol 3350 [Miralax] 17 gm PO DAILY PRN PRN Reason: Constipation Cholecalciferol [Vitamin D3 (25 Mcg = 1000 Iu)] 1,000 unit PO DAILY Multivitamins, Thera [Multivitamin (formulary)] 1 tab PO DAILY Isopto Tears 1 drop BOTH EYES DAILY PRN PRN Reason: DRY EYES Tolterodine Tartrate [Detrol LA] 4 mg PO Q48H Gabapentin [Neurontin] 300 mg PO BID #6 cap oxyCODONE-APAP 7.5-325MG [Percocet 7.5-325 mg] 0.5 tab PO Q6H PRN #6 tab PRN Reason: Pain Discharge Medication List OLANZapine [ZyPREXA] 10 mg PO HS 08/29/15 [History] Escitalopram [Lexapro] 10 mg PO DAILY 08/27/18 [History] Lisinopril [Zestril] 2.5 mg PO DAILY 09/19/18 [History] Pilocarpine HCl [Salagen] 7.5 mg PO TID 09/19/18 [History] Sennosides/Docusate Sodium [Dok Plus Tablet] 1 tab PO BID 09/19/18 [History] Ascorbic Acid [Vitamin C] 500 mg PO DAILY 02/14/19 [History] Cholecalciferol [Vitamin D3 (25 Mcg = 1000 Iu)] 1,000 unit PO DAILY 02/14/19 [History] L.acidoph,Paracasei, B.lactis [Probiotic] 1 cap PO DAILY 02/14/19 [History] Lansoprazole [Prevacid] 15 mg PO BID 02/14/19 [History] Multivitamins, Thera [Multivitamin (formulary)] 1 tab PO DAILY 02/14/19 [History] Polyethylene Glycol 3350 [Miralax] 17 gm PO DAILY PRN 02/14/19 [History] Vit C/E/Zn/Coppr/Lutein/Zeaxan [Preservision Areds 2 Softgel] 1 cap PO DAILY 02/14/19 [History] Isopto Tears 1 drop BOTH EYES DAILY PRN 02/15/19 [History] Tolterodine Tartrate [Detrol LA] 4 mg PO Q48H 02/15/19 [History] Cephalexin [Keflex] 250 mg PO Q8HR #30 capsule 02/18/19 [Rx] Furosemide [Lasix] 40 mg PO DAILY #30 tablet 02/18/19 [Rx] Gabapentin [Neurontin] 300 mg PO BID #6 cap 02/18/19 [Rx] Potassium Citrate [Potassium Citrate ER] 10 meq PO DAILY #30 tablet.er 02/18/19 [Rx] oxyCODONE-APAP 7.5-325MG [Percocet 7.5-325 mg] 0.5 tab PO Q6H PRN #6 tab 02/18/19 [Rx] Follow up Appointment(s)/Referral(s): Wound Healing,Center [NON-STAFF] - As Needed Shimon Garcia MD [Primary Care Provider] - 1 Week (at [facility]) Activity/Diet/Wound Care/Special Instructions: [facility] Discharge Disposition: TRANSFER TO SNF/F
[2019-02-18] MEDS: SENNOSIDES-DOCUSATE SODIUM 1 EACH TAB PO SCH (09:02)
[2019-02-18] MEDS: ENOXAPARIN 40 MG/0.4 ML SYRINGE SQ SCH (09:02)
[2019-02-18] MEDS: MULTIVITAMINS, THERA 1 EACH TAB PO SCH (09:02)
[2019-02-18] MEDS: LACTOBACILLUS ACIDOPH & BULGAR 1 EACH PACKET PO SCH (09:02)
[2019-02-18] MEDS: LISINOPRIL 2.5 MG TAB PO SCH (09:02)
[2019-02-18] MEDS: PANTOPRAZOLE 40 MG TABLET PO SCH (09:02)
[2019-02-18] MEDS: FUROSEMIDE 10 MG/ML 2 ML VIAL IV SCH (09:02)
[2019-02-18] MEDS: OXYBUTYNIN XL 5 MG TAB.ER.24 PO SCH (09:02)
[2019-02-18] MEDS: GABAPENTIN 300 MG CAP PO SCH (09:02)
[2019-02-18] MEDS: ESCITALOPRAM 10 MG TAB PO SCH (09:03)
[2019-02-18] MEDS: VIT A,C & E-LUTEIN-MINERALS 1 EACH TAB PO SCH (09:03)
[2019-02-18] MEDS: PILOCARPINE 5 MG TAB PO SCH (09:03)
[2019-02-18] MEDS: oxyCODONE-APAP 7.5-325MG 1 EACH TAB PO SCH (09:04)
--- NOTE | 2019-02-24 12:51 | CDI ---
Please refer this question to Dr. Grace as he physically saw this patient. Documentation Clarification Form Date: 02/24/2019 10:48:18 AM From: Xenia Izquierdo Phone: If you have a question about this query, please contact Yovana Guillermo [employer]er at [phone] between 8am and 5pm. Admit Date: 02/14/2019 9:27:00 PM Patient Name: Malena Victor Visit Number: [id number] Discharge Date: 02/18/2019 1:26:00 PM ATTENTION: The Clinical Documentation Specialists (CDI) and [facility] Coding Staff appreciate your assistance in clarifying documentation. Please respond to the clarification below the line at the bottom and electronically sign. The CDI & [facility] Coding staff will review the response and follow-up if needed. Please note: Queries are made part of the Legal Health Record. If you have any questions, please contact the author of this message via ITS. Dr. Matias Vieyra Non Healing ulceration pressure component with fat layer exposure to the back was documented in your consult. Please specify the stage of the ulcer and site of back. Location: back Wound description: 1.5 x 1.5 x 0.01 wound bed shows granulation with minimal slough ecchymosis noted fat layer exposure Treatment: Apple honey alginate, saline moistened gauze, utilize a wall cushion Elements for accurate and compliant documentation of an ulcer: *The location/laterality of the ulcer *Etiology (decubitus/pressure, diabetic, PVD) *Stage I-IV, Unstageable, Suspected Deep Tissue Injury (To the deepest stage) *If the ulcer was present at admission (POA) or occurred after admission In your professional opinion, can you please clarify the diagnosis, location, laterality and whether present on admission (POA): Stage 1 Pressure/Decubitus Ulcer (intact skin, non-blanching redness of local area) Stage 2 Pressure/Decubitus Ulcer (Partial thickness, loss of dermis, pink wound bed) Stage 3 Pressure/Decubitus Ulcer (Full thickness tissue loss) Stage 4 Pressure/Decubitus Ulcer (Full thickness tissue loss with exposed bone, tendon, or muscle. May have slough or eschar present) Unstageable Other condition, please specify Unable to determine MTDD
--- NOTE | 2019-03-24 10:36 | CDI ---
Documentation Clarification Form Date: 02/24/2019 10:48:00 AM From: Xenia Izquierdo Phone: If you have a question about this query, please contact Yovana Guillermo Script Writer at [phone] Admit Date: 02/14/2019 09:27:00 PM Patient Name: Malena Victor Visit Number: [id number] Discharge Date: 02/18/2019 01:26:00 PM ATTENTION: The Clinical Documentation Specialists (CDI) and [facility] Coding Staff appreciate your assistance in clarifying documentation. Please respond to the clarification below the line at the bottom and electronically sign. The CDI & [facility] Coding staff will review the response and follow-up if needed. Please note: Queries are made part of the Legal Health Record. If you have any questions, please contact the author of this message via ITS. Dr. Sudhakar Grace Non Healing ulceration with pressure component with fat layer exposure to the back was documented in your consult. Please specify the stage of the ulcer and site of back. Dr. Vieyra requested I redirect this query to you. Location: back Wound description: 105 x 1.5 x 0.01 wound bed shows granulation with minimal slough ecchymosis noted fat layer exposure Treatment: Apple honey alginate, saline moistened gauze, utilize a wall cushion In your professional opinion, can you please clarify the diagnosis, location, laterality and whether present on admission (POA): Stage 1 Pressure/Decubitus Ulcer (intact skin, non-blanching redness of local area) Stage 2 Pressure/Decubitus Ulcer (Partial thickness, loss of dermis, pink wound bed) Stage 3 Pressure/Decubitus Ulcer (Full thickness tissue loss) Stage 4 Pressure/Decubitus Ulcer (Full thickness tissue loss with exposed bone, tendon, or muscle. May have slough or eschar present) Unstageable Other condition, please specify Unable to determine Stage 3 pressure ulcer present on admission, midline, upper back MTDD
== END 2019-02-18 13:26 | DRG 871 ==
LOC: EC 19:30 → 3SCARD 21:27 → 4SSUR 02-15 21:30
PROVIDERS: ADMIT Internal Medicine; ATTEND Internal Medicine
DX: A41.59 Other Gram-negative sepsis (principal); L89.103 Pressure ulcer of unspecified part of back, stage 3; N39.0 Urinary tract infection, site not specified; F33.9 Major depressive disorder, recurrent, unspecified; I13.0 Hypertensive heart and chronic kidney disease with heart failure and stage 1 through stage 4 chronic kidney disease, or unspecified chronic kidney disease; I42.8 Other cardiomyopathies; I50.32 Chronic diastolic (congestive) heart failure; J96.11 Chronic respiratory failure with hypoxia; J98.11 Atelectasis; Z16.29 Resistance to other single specified antibiotic; D64.9 Anemia, unspecified; G89.4 Chronic pain syndrome; I25.10 Atherosclerotic heart disease of native coronary artery without angina pectoris; I25.5 Ischemic cardiomyopathy; J45.909 Unspecified asthma, uncomplicated; M35.00 Sjogren syndrome, unspecified; M81.0 Age-related osteoporosis without current pathological fracture; N18.2 Chronic kidney disease, stage 2 (mild); N32.81 Overactive bladder; N64.4 Mastodynia; N64.59 Other signs and symptoms in breast; R32 Unspecified urinary incontinence; Z79.899 Other long term (current) drug therapy; Z82.0 Family history of epilepsy and other diseases of the nervous system; Z85.048 Personal history of other malignant neoplasm of rectum, rectosigmoid junction, and anus; Z85.118 Personal history of other malignant neoplasm of bronchus and lung; Z87.440 Personal history of urinary (tract) infections; Z90.710 Acquired absence of both cervix and uterus; Z93.3 Colostomy status; Z90.49 Acquired absence of other specified parts of digestive tract; M19.90 Unspecified osteoarthritis, unspecified site; Z88.6 Allergy status to analgesic agent; Z88.1 Allergy status to other antibiotic agents; Z88.5 Allergy status to narcotic agent; Z88.0 Allergy status to penicillin; Z86.14 Personal history of Methicillin resistant Staphylococcus aureus infection; Z98.42 Cataract extraction status, left eye; Z98.41 Cataract extraction status, right eye; R07.89 Other chest pain; R26.9 Unspecified abnormalities of gait and mobility; Z84.1 Family history of disorders of kidney and ureter; Z82.3 Family history of stroke; L89.109 Pressure ulcer of unspecified part of back, unspecified stage
CPT/HCPCS: 36415; 71046; 76770; 80048; 80053; 81001; 82565; 83605; 84484; 85025; 85027; 85610; 85730; 87040; 87077; 87086; 87186; 87502; 93005; 96361; 96365; 99285

== ENCOUNTER 2019-12-12 04:28 | Observation (INO) | payer MEDICARE ==
--- NOTE | 2019-12-12 04:37 | ED ---
Chest Pain HPI - General Chief Complaint: Chest Pain Stated Complaint: Chest pain Source: EMS Mode of arrival: EMS Limitations: no limitations - History of Present Illness Initial Comments: Malena is a pleasant 84-year-old female who [facility] pain. Patient is 84 years old she does have a history coronary artery disease she is currently just finished treatment for pneumonia with meropenem via PICC line. Last dose was yesterday. Apparently patient woke from sleep experiencing chest pain she called for the nurses and they noted that she seemed confused not knowing where she was or the day. However by the time she got to the emergency department she was more awake alert oriented and continued to complain of chest pain she was noted to be hypertensive. Patient's good at describing the pain but states that it's a 7-8 out of 10 in intensity and sharp. - Related Data Home Medications Medication Instructions Recorded Confirmed OLANZapine [ZyPREXA] 10 mg PO HS 08/29/15 02/15/19 Escitalopram [Lexapro] 10 mg PO DAILY 08/27/18 02/15/19 Pilocarpine HCl [Salagen] 7.5 mg PO TID 09/19/18 02/15/19 Sennosides/Docusate Sodium [Dok 1 tab PO BID 09/19/18 02/15/19 Plus Tablet] lisinopriL [Zestril] 2.5 mg PO DAILY 09/19/18 02/15/19 Ascorbic Acid [Vitamin C] 500 mg PO DAILY 02/14/19 02/15/19 Cholecalciferol [Vitamin D3 (25 1,000 unit PO DAILY 02/14/19 02/15/19 Mcg = 1000 Iu)] L.acidoph,Paracasei, B.lactis 1 cap PO DAILY 02/14/19 02/15/19 [Probiotic] Lansoprazole [Prevacid] 15 mg PO BID 02/14/19 02/15/19 Multivitamins, Thera [Multivitamin 1 tab PO DAILY 02/14/19 02/15/19 (formulary)] Vit C/E/Zn/Coppr/Lutein/Zeaxan 1 cap PO DAILY 02/14/19 02/15/19 [Preservision Areds 2 Softgel] polyethylene glycoL 3350 [Miralax] 17 gm PO DAILY PRN 02/14/19 02/15/19 Isopto Tears 1 drop BOTH EYES DAILY PRN 02/15/19 02/15/19 Tolterodine Tartrate [Detrol LA] 4 mg PO Q48H 02/15/19 02/15/19 Previous Rx's Medication Instructions Recorded Cephalexin [Keflex] 250 mg PO Q8HR #30 capsule 02/18/19 Furosemide [Lasix] 40 mg PO DAILY #30 tablet 02/18/19 Gabapentin [Neurontin] 300 mg PO BID #6 cap 02/18/19 Potassium Citrate [Potassium 10 meq PO DAILY #30 tablet.er 02/18/19 Citrate ER] oxyCODONE-APAP 7.5-325MG [Percocet 0.5 tab PO Q6H PRN #6 tab 02/18/19 7.5-325 mg] Allergies Allergy/AdvReac Type Severity Reaction Status Date / Time aspirin Allergy Anaphylaxis Verified 12/12/19 04:35 caffeine Allergy CREATES Verified 12/12/19 04:35 TOO MUCH STOMACH ACID celecoxib [From Celebrex] Allergy Rash/Hives Verified 12/12/19 04:35 codeine Allergy Anaphylaxis Verified 12/12/19 04:35 doxycycline Allergy Unknown Verified 12/12/19 04:35 hydrocodone bitartrate Allergy Unknown Verified 12/12/19 04:35 [From [place]] Penicillins Allergy Rash/Hives Verified 12/12/19 04:35 rofecoxib [From Vioxx] Allergy Rash/Hives Verified 12/12/19 04:35 clarithromycin [From Biaxin] AdvReac Nausea Verified 12/12/19 04:35 clindamycin AdvReac Nausea Verified 12/12/19 04:35 levofloxacin [From Levaquin] AdvReac Nausea Verified 12/12/19 04:35 Morpholine Analogues AdvReac Confusion Verified 12/12/19 04:35 ranitidine HCl [From Zantac] AdvReac Rash/Hives Verified 12/12/19 04:35 Review of Systems ROS Statement: Those systems with pertinent positive or pertinent negative responses have been documented in the HPI. ROS Other: All systems not noted in ROS Statement are negative. EKG Findings - EKG Comments: EKG Findings:: EKG was obtained due to complaint of chest pain, EKG was obtained at 4:34 AM, rate is 83 rhythm is sinus there is a normal axis, there are normal intervals, WA 176, QRS 80, QTC [address] elevations or depressions no evidence of acute ischemia or infarction. Q waves noted on the anterior leads. Past Medical History Past Medical History: Asthma, Coronary Artery Disease (CAD), Cancer, Hypertension, Memory Impairment, Musculoskeletal Disorder, Osteoarthritis (OA), Sleep Apnea/CPAP/BIPAP Additional Past Medical History / Comment(s): Sjogren syndrome, RECTAL CANCER WITH COLOSTOMY , anemia, OVER ACTIVE BLADDER, hx. L4 fracture, BRONCH WASHING WAS POSITIVE FOR KLEBSIELLA PNUEMONAE., BACK PAIN. FREQUENT FALLS. History of Any Multi-Drug Resistant Organisms: ESBL, MRSA Date of last positivie culture/infection: 09/21/18 MRSA; 09/30/19 ESBL E.COLI MDRO Source:: Back-MRSA; Urine-ESBL Past Surgical History: Adenoidectomy, Appendectomy, Back Surgery, Bowel Resection, Breast Surgery, Heart Catheterization, Hysterectomy, Tonsillectomy, Uterine Ablation Additional Past Surgical History / Comment(s): PERMANENT COLOSTOMY. throat surgery removed uvula,L3-L4 two fractured vertebrae, sofi cataracts, kyphoplasty L4, PICCLINE IN MAY FOR ABX(PNE) SINCE REMOVED. PICC LINE PLACEMENT, COLONOSCOPY, EGD, UTI 08/2017 Past Anesthesia/Blood Transfusion Reactions: No Reported Reaction Additional Past Anesthesia/Blood Transfusion Reaction / Comment(s): HX OF BLOOD TRANSFUSION Past Psychological History: No Psychological Hx Reported Smoking Status: Never smoker Past Alcohol Use History: None Reported Past Drug Use History: None Reported - Past Family History Mother History Unknown: Yes Family Medical History: Dialysis, Renal Disease Brother(s) History Unknown: Yes Family Medical History: No Reported History Sister(s) History Unknown: Yes Family Medical History: No Reported History Additional Family Medical History / Comment(s): Parkinsons Father Family Medical History: Cancer, CVA/TIA Additional Family Medical History / Comment(s): 3 out of 4 siblings dx. autoimmune disease General Exam - General Exam Comments Initial Comments: Physical Exam GENERAL: Patient is well-developed and well-nourished. Patient is nontoxic and well-hydrated and is in no distress. HENT: Normocephalic, Atraumatic. EYES: PERRL, EOMI PULMONARY: Unlabored respirations. CARDIOVASCULAR: RRR Warm and well perfused extremities ABDOMEN: Non-distended SKIN: No rashes or bruising : Deferred NEUROLOGIC: Alert and oriented Normal speech Normal gait MUSCULOSKELETAL: Moving all extremities with no apparent injury PSYCHIATRIC: No SI/HI Limitations: no limitations Course Vital Signs 12/12/19 12/12/19 12/12/19 04:29 04:43 04:46 Temperature 98 F Pulse Rate 77 86 93 Respiratory 16 14 16 Rate Blood Pressure 168/90 154/94 145/79 O2 Sat by Pulse 97 99 99 Oximetry 12/12/19 12/12/19 04:51 06:02 Temperature 97.7 F Pulse Rate 96 96 Respiratory 16 16 Rate Blood Pressure 139/79 127/73 O2 Sat by Pulse 99 99 Oximetry Chest Pain [facility] The patient was seen and evaluated history is obtained from patient 84-year-old female with extensive past medical history most significant for known CAD, history of lung cancer, hypertension Presenting complaint of sharp stabbing chest pain 7 out of 10 in intensity EKG is nonischemic No improvement with nitro Patient was noted to be sleeping and appeared comfortable however when waking reported her pain remained 5 out of 10 in intensity. Labs are unremarkable Patient care was discussed with her primary care physician Dr. Garcia who is familiar with this patient he recommends placing the patient in observation for evaluation by cardiology This plan was discussed with patient and her at bedside who are agreeable Disposition Clinical Impression: Hypertension, Chest pain Disposition: ADMITTED IP TO THIS [facility] Condition: Stable Referrals: Shimon Garcia MD [Primary Care Provider] - 1-2 days
[2019-12-12] MEDS: NITROGLYCERIN SL TABS 0.4 MG TAB SUBLINGUAL STA ×3 (04:41→04:52)
[2019-12-12 04:48] LABS: Basophils % (A) 0 %; Eosinophils # (A) 0.1 k/uL (0-0.7); Eosinophils % (A) 1 %; HCT 36.3 % (34.0-46.0); HGB 11.8 gm/dL (11.4-16.0); Lymphocytes # (A) 0.7 k/uL (1.0-4.8); Lymphocytes % (A) 14 %; MCH 30.7 pg (25.0-35.0); MCHC 32.6 g/dL (31.0-37.0); MCV 94.3 fL (80.0-100.0); Mean Platelet Volume 7.6; Monocytes # (A) 0.1 k/uL (0-1.0); Monocytes % (A) 2 %; Neutrophils # (A) 4.1 k/uL (1.3-7.7); Neutrophils % (A) 83 %; Platelet Count 176 k/uL (150-450); RBC 3.85 m/uL (3.80-5.40); RDW 12.6 % (11.5-15.5); WBC 4.9 k/uL (3.8-10.6)
[2019-12-12 05:07] LABS: Albumin 3.8 g/dL (3.5-5.0); Magnesium 2.1 mg/dL (1.6-2.3); Potassium 5.6 mmol/L (3.5-5.1); Total Bilirubin 0.3 mg/dL (0.2-1.3); Total Protein 6.7 g/dL (6.3-8.2)
--- NOTE | 2019-12-12 05:07 | XR ---
EXAMINATION TYPE: XR chest 2V DATE OF EXAM: 12/12/2019 COMPARISON: 02/16/2019 HISTORY: Chest pain TECHNIQUE: FINDINGS: There is some coarsening of interstitial markings. There is multilevel thoracic and lumbar vertebroplasty. There is mild thoracic kyphotic deformity. There is subsegmental patchy atelectasis i n both lungs. There is no gross heart failure. Thoracic aorta is atheromatous. There is no pleural ef fusion. IMPRESSION: Patchy atelectasis. Pulmonary fibrosis. There is clearing of the congestive heart failure pleural fluid compared to old exam.
[2019-12-12 05:11] LABS: Partial Thromboplastin Time 25.9 sec (22.0-30.0)
[2019-12-12] MEDS ORDERED: NITROGLYCERIN SL TABS 0.4 MG TAB SUBLINGUAL PRN (06:06)
[2019-12-12] MEDS ORDERED: oxyCODONE-APAP 7.5-325MG 1 EACH TAB PO PRN (06:08)
[2019-12-12 07:46] VITALS: RESP 16
[2019-12-12] MEDS ORDERED: ESCITALOPRAM 10 MG TAB PO SCH (09:00)
[2019-12-12] MEDS ORDERED: PILOCARPINE 5 MG TAB PO SCH (09:00)
[2019-12-12] MEDS ORDERED: GABAPENTIN 300 MG CAP PO SCH (09:00)
[2019-12-12] MEDS ORDERED: FUROSEMIDE 40 MG TAB PO SCH (09:00)
[2019-12-12] MEDS ORDERED: FUROSEMIDE 10 MG/ML 4 ML VIAL IV STA (09:27)
--- NOTE | 2019-12-12 12:00 | P.CRDCN ---
History of Present Illness History of present illness: HISTORY OF PRESENTING ILLNESS This is a pleasant 84-year-old female past medical history significant for nonischemic cardiomyopathy, hypertension, obstructive sleep apnea, peripher al vascular disease, valvular heart disease and recent diagnosis of pneumonia. She follows in the office with Dr. Pulido. We have been asked to see in consultation for chest pain. She states she woke up last night with a dull ache in the left precordial region and shortness of breath. She states she has been experiencing this discomfort in her chest for the previous few weeks and it has been constant in nature. She has been on IV antibiotics at [facility] secondary to pneumonia. Most recent echocardiogram reveals preserved LV systolic function with ejection fraction 55-60%. She underwent cardiac catheterization in 2004 revealing minimal nonobstructive coronary artery disease with an ejection fraction of 15%. Over the years her LV function has improved. DIAGNOSTICS EKG reveals an is mechanism with poor R-wave progression. Chest xray patchy atelectasis, pulmonary fibrosis and clearing of pleural fluid. Laboratory reviewed, CBC unremarkable, sodium 133, potassium 5.6, creatinine 0.86, magnesium 2.1, cardiac enzymes negative 3, NT proBNP 2860. Current cardiac medications include losartan 50 mg daily and Toprol 25 mg daily and Lasix. REVIEW OF SYSTEMS At the time of my exam: CONSTITUTIONAL: Denies fever or chills. CARDIOVASCULAR: Denies chest pain, shortness of breath, orthopnea, PND or palpitations. RESPIRATORY: Denies cough. GASTROINTESTINAL: Denies abdominal pain, diarrhea, constipation, nausea or vomiting. MUSCULOSKELETAL: Denies myalgias. NEUROLOGIC: Denies numbness, tingling or weakness. ENDOCRINE: Denies fatigue, weight change, polydipsia or polyurina. GENITOURINARY: Denies burning, hematuria or urgency with micturation. HEMATOLOGIC: Denies history of anemia or bleeding. PHYSICAL EXAMINATION Blood pressure 153/81 heart rate 94 afebrile and maintaining oxygen saturation on Connie. CONSTITUTIONAL: No apparent distress. HEENT: Head is normocephalic. Pupils are equal, round. Sclerae anicteric. Mucous membranes of the mouth are moist. No JVD. No carotid bruit. CHEST EXAMINATION: Faint bibasilar rales, expiratory wheezes noted anteriorly, no rhonchi. No chest wall tenderness is noted on palpation or with deep breathing. HEART EXAMINATION: Regular rate and rhythm. S1, S2 heard. Soft systolic ejection murmur at the left sternal border, no gallops or rub. ABDOMEN: Soft, nontender. Positive bowel sounds. EXTREMITIES: 2+ peripheral pulses, trace bilateral lower extremity edema and no calf tenderness. NEUROLOGIC EXAMINATION: Patient is awake, alert and oriented x3. ASSESSMENT Acute on chronic diastolic heart failure Chest pain, atypical for angina. An acute event has been ruled out. Hypertension Sleep apnea PLAN An acute coronary event has been ruled out. Obtain 2-D echocardiogram and Doppler study to assess cardiac structure and function. Give 1 dose of Lasix IV 40 mg now for mild fluid overload. Resume losartan and Toprol as previously ordered. Repeat EKG in the morning. Thank you kindly for this consultation. Nurse Practitioner note has been reviewed, I agree with a documented findings and plan of care. Patient was seen and examined. Past Medical History Past Medical History: Asthma, Coronary Artery Disease (CAD), Cancer, Hypertension, Memory Impairment, Musculoskeletal Disorder, Osteoarthritis (OA), Sleep Apnea/CPAP/BIPAP Additional Past Medical History / Comment(s): Sjogren syndrome, RECTAL CANCER WITH COLOSTOMY , anemia, OVER ACTIVE BLADDER, hx. L4 fracture, BRONCH WASHING WAS POSITIVE FOR KLEBSIELLA PNUEMONAE., BACK PAIN. FREQUENT FALLS. History of Any Multi-Drug Resistant Organisms: ESBL, MRSA Date of last positivie culture/infection: 09/21/18 MRSA; 09/30/19 ESBL E.COLI MDRO Source:: Back-MRSA; Urine-ESBL Past Surgical History: Adenoidectomy, Appendectomy, Back Surgery, Bowel Resection, Breast Surgery, Heart Catheterization, Hysterectomy, Tonsillectomy, Uterine Ablation Additional Past Surgical History / Comment(s): PERMANENT COLOSTOMY. throat surgery removed uvula,L3-L4 two fractured vertebrae, sofi cataracts, kyp hoplasty L4, PICCLINE IN MAY FOR ABX(PNE) SINCE REMOVED. PICC LINE PLACEMENT, COLONOSCOPY, EGD, UTI 08/2017 Past Anesthesia/Blood Transfusion Reactions: No Reported Reaction Additional Past Anesthesia/Blood Transfusion Reaction / Comment(s): HX OF BLOOD TRANSFUSION Past Psychological History: No Psychological Hx Reported Additional Psychological History / Comment(s): cared for in the family home by the and children. Retired. No experience. No international travel. No tobacco or alcohol use. No animal exposures Smoking Status: Never smoker Past Alcohol Use History: None Reported Additional Past Alcohol Use History / Comment(s): cared for in the family home by the and children. Retired. No experience. No international travel. No tobacco or alcohol use. No animal exposures Past Drug Use History: None Reported - Past Family History Mother History Unknown: Yes Family Medical History: Dialysis, Renal Disease Brother(s) History Unknown: Yes Family Medical History: No Reported History Sister(s) History Unknown: Yes Family Medical History: No Reported History Additional Family Medical History / Comment(s): Parkinsons Father Family Medical History: Cancer, CVA/TIA Additional Family Medical History / Comment(s): 3 out of 4 siblings dx. autoimmune disease Medications and Allergies Home Medications Medication Instructions Recorded Confirmed Type Escitalopram [Lexapro] 10 mg PO DAILY@0900 08/27/18 12/12/19 History Pilocarpine HCl [Salagen] 7.5 mg PO TID@0600,1400,2200 09/19/18 12/12/19 History Sennosides/Docusate Sodium [Dok 1 tab PO BID@0900,209909/19/18 12/12/19 History Plus Tablet] Cholecalciferol [Vitamin D3 (25 1,000 unit PO DAILY@0900 02/14/19 12/12/19 History Mcg = 1000 Iu)] Vit C/E/Zn/Coppr/Lutein/Zeaxan 1 cap PO DAILY@0900 02/14/19 12/12/19 History [Preservision Areds 2 Softgel] Tolterodine Tartrate [Detrol LA] 4 mg PO DAILY@0600 02/15/19 12/12/19 History Acetaminophen Tab [Tylenol] 650 mg PO Q8H 12/12/19 12/12/19 History Albuterol Sulfate [Proair 1 puff INHALATION RT-QID PRN 12/12/19 12/12/19 History Respiclick] Ammonium Lactate Lotion 1 applic TOPICAL HS 12/12/19 12/12/19 History [Lac-Hydrin 12% Lotion] Depo-Medrol 80mg/Ml 80 mg IV ONCE PRN 12/12/19 12/12/19 History Fluticasone Propionate 220 Mcg 1 puff INHALATION RT-BID@0900,209912/12/19 12/12/19 History [Flovent 220 Mcg Inhaler (Mhu)] Gabapentin 300 mg PO BID@899,209912/12/19 12/12/19 History Hydrocortisone Cream 1 applic TOPICAL Q12H 12/12/19 12/12/19 History [Hydrocortisone 2.5% Cream] Lansoprazole 30 mg PO DAILY@0612/12/19 12/12/19 History Losartan [Cozaar] 50 mg PO DAILY@89912/12/19 12/12/19 History Magnesium Oxide 400 mg PO BID@899,209912/12/19 12/12/19 History Methyl Salicylate/Menthol 1 patch TRANSDERM DAILY@89912/12/19 12/12/19 History [Salonpas Patch] Metoprolol Succinate [Toprol XL] 25 mg PO HS@209912/12/19 12/12/19 History OLANZapine [ZyPREXA] 7.5 mg PO HS@209912/12/19 12/12/19 History Ondansetron [Zofran] 4 mg PO Q6H PRN 12/12/19 12/12/19 History Optifoam 1 applic TOPICAL DAILY PRN 12/12/19 12/12/19 History Optifoam 1 applic TOPICAL Q72H 12/12/19 12/12/19 History Propylene Glycol/Peg 400/Pf 1 drop BOTH EYES Q6H 12/12/19 12/12/19 History [Systane 0.3-0.4% Eye Drops] Z-Guard 1 applic TOPICAL DAILY PRN 12/12/19 12/12/19 History Z-Guard 1 applic TOPICAL Q12H 12/12/19 12/12/19 History cycloSPORINE 0.05% OPHTH SOLN 1 drop BOTH EYES BID@899,209912/12/19 12/12/19 History [Restasis] hydrOXYzine HCL 10 mg PO BID@899,209912/12/19 12/12/19 History oxyCODONE-APAP 7.5-325MG [Percocet 0.5 tab PO Q8H PRN 12/12/19 12/12/19 History 7.5-325 mg] Allergies Allergy/AdvReac Type Severity Reaction Status Date / Time aspirin Allergy Anaphylaxis Verified 12/12/19 08:21 caffeine Allergy CREATES Verified 12/12/19 08:21 TOO MUCH STOMACH ACID celecoxib [From Celebrex] Allergy Rash/Hives Verified 12/12/19 08:21 codeine Allergy Anaphylaxis Verified 12/12/19 08:21 doxycycline Allergy Unknown Verified 12/12/19 08:21 hydrocodone bitartrate Allergy Unknown Verified 12/12/19 08:21 [From Gary] milk Allergy Unknown Verified 12/12/19 08:21 Penicillins Allergy Rash/Hives Verified 12/12/19 08:21 rofecoxib [From Vioxx] Allergy Rash/Hives Verified 12/12/19 08:21 clarithromycin [From Biaxin] AdvReac Nausea Verified 12/12/19 08:21 clindamycin AdvReac Nausea Verified 12/12/19 08:21 levofloxacin [From Levaquin] AdvReac Nausea Verified 12/12/19 08:21 Morpholine Analogues AdvReac Confusion Verified 12/12/19 08:21 ranitidine HCl [From Zantac] AdvReac Rash/Hives Verified 12/12/19 08:21 Physical Exam Vitals: Vital Signs Temp Pulse Pulse Resp BP BP Pulse Ox 12/12/19 09:00 16 12/12/19 07:34 98 F 94 16 96 12/12/19 06:52 97.8 F 94 19 153/81 99 12/12/19 06:02 97.7 F 96 16 127/73 99 12/12/19 04:51 96 16 139/79 99 12/12/19 04:46 93 16 145/79 99 12/12/19 04:43 86 14 154/94 99 12/12/19 04:29 98 F 77 16 168/90 97 Intake and Output 12/11/19 12/12/19 12/12/19 22:59 06:59 14:59 Other: Voiding Method Diaper Weight 61.235 kg 61.235 kg Results 12/12/19 04:39 12/12/19 04:39 Cardiac Enzymes 12/12/19 12/12/19 12/12/19 Range/Units 04:39 04:39 07:36 AST 27 (14-36) U/L Troponin I <0.012 <0.012 (0.000-0.034) ng/mL Coagulation 12/12/19 Range/Units 04:39 PT 10.0 (9.0-12.0) sec APTT 25.9 (22.0-30.0) sec CBC 12/12/19 Range/Units 04:39 WBC 4.9 (3.8-10.6) k/uL RBC 3.85 (3.80-5.40) m/uL Hgb 11.8 (11.4-16.0) gm/dL Hct 36.3 (34.0-46.0) % Plt Count 176 (150-450) k/uL Comprehensive Metabolic Panel 12/12/19 Range/Units 04:39 Sodium 133 L (137-145) mmol/L Potassium 5.6 H (3.5-5.1) mmol/L Chloride 101 (98-107) mmol/L Carbon Dioxide 27 (22-30) mmol/L BUN 26 H (7-17) mg/dL Creatinine 0.86 (0.52-1.04) mg/dL Glucose 155 H (74-99) mg/dL Calcium 9.0 (8.4-10.2) mg/dL AST 27 (14-36) U/L ALT 17 (4-34) U/L Alkaline Phosphatase 82 (38-126) U/L Total Protein 6.7 (6.3-8.2) g/dL Albumin 3.8 (3.5-5.0) g/dL Current Medications Generic Name Dose Route Start Last Admin Trade Name Freq PRN Reason Stop Dose Admin Escitalopram Oxalate 10 mg 12/12/19 09:00 Escitalopram 10 Mg Tab PO DAILY LORNA Furosemide 40 mg 12/12/19 09:00 Furosemide 40 Mg Tab PO DAILY LORNA Gabapentin 300 mg 12/12/19 09:00 Gabapentin 300 Mg Cap PO BID LORNA Lisinopril 2.5 mg 12/12/19 09:00 Lisinopril 2.5 Mg Tab PO DAILY LORNA Nitroglycerin 0.4 mg 12/12/19 06:06 Nitroglycerin Sl Tabs 0.4 Mg Tab SUBLINGUAL Q5M PRN Chest Pain Olanzapine 10 mg 12/12/19 21:00 Olanzapine 10 Mg Tab PO HS LORNA Oxycodone/Acetaminophen 0.5 each 12/12/19 06:08 Oxycodone-Apap 7.5-325mg 1 Each Tab PO Q6H PRN Pain Pilocarpine HCl 7.5 mg 12/12/19 09:00 Pilocarpine 5 Mg Tab PO TID LORNA Intake and Output 12/11/19 12/12/19 12/12/19 22:59 06:59 14:59 Other: Voiding Method Diaper Weight 61.235 kg 61.235 kg Patient Weight 12/13/19 06:59 Weight 61.235 kg 12/12/19 04:39 12/12/19 04:39
[2019-12-12 15:14] VITALS: BP 122/59; PULSE 99; TEMP 97.6
--- NOTE | 2019-12-12 18:50 | ECHOF ---
Referral Reason:cp sob MEASUREMENTS -------- HEIGHT: 160.0 cm WEIGHT: 61.2 kg BP: 153/81 IVSd: 1.8 cm (0.6 - 1.1) LVIDd: 2.9 cm (3.9 - 5.3) LVPWd: 1.3 cm (0.6 - 1.1) IVSs: 2.1 cm LVIDs: 1.9 cm LVPWs: 2.0 cm RVIDd: 3.1 cm (< 3.3) LAESV Index (A-L): 28.93 ml/m Ao Diam: 3.1 cm (2.0 - 3.7) AV Cusp: 1.9 cm (1.5 - 2.6) EPSS: 0.2 cm MV EF SLOPE: 49.71 mm/s (70 - 150) MV EXCURSION: 15.14 mm (> 18.000) FINDINGS -------- This was a technically adequate study. The left ventricular size is normal. There is moderate concentric left ventricular hypertrophy. O verall left ventricular systolic function is normal with, an EF between 55 - 60 %. The right ventricle is normal in size. Normal LA size by volume 22+/-6 ml/m2. The right atrial size is normal. Interatrial and interventricular septum intact. The aortic valve is trileaflet and appears structurally normal. There is no evidence of aortic regu rgitation. There is no evidence of aortic stenosis. Mild mitral regurgitation is present. Mild tricuspid regurgitation present. There is no evidence of pulmonary hypertension. The right v entricular systolic pressure, as measured by Doppler, is {RVSP}. There is no pulmonic regurgitation present. The aortic root size is normal. IVC Not well visulized. There is no pericardial effusion. CONCLUSIONS -------- 1. The left ventricular size is normal. 2. There is moderate concentric left ventricular hypertrophy. 3. Overall left ventricular systolic function is normal with, an EF between 55 - 60 %. 4. Mild mitral regurgitation is present. 5. Mild tricuspid regurgitation present. CIVIL CELEBRANT: Arely Cesar [facility]
[2019-12-12] MEDS ORDERED: OLANZapine 10 MG TAB PO SCH (21:00)
[2019-12-12] MEDS ORDERED: METOPROLOL SUCCINATE (ER) 25 MG TAB.ER.24H PO SCH (21:00)
[2019-12-13] MEDS ORDERED: FUROSEMIDE 40 MG TAB PO SCH (09:00)
[2019-12-13] MEDS ORDERED: LOSARTAN 50 MG TAB PO SCH (09:00)
--- NOTE | 2019-12-14 08:25 | P.HPIM ---
History of Present Illness H&P Date: 12/12/19 Chief Complaint: Chest pain History of physical and discharge summary. This is an 84-year-old female patient of mine with past medical history of asthma, CAD , history of asthma, previous history of lung cancer post resection who is known to have severe lower back pain, history of Klebsiella pneumoniae ESBL urinary tract infection, memory impairment, rectal cancer requiring colostomy bag, patient was found recently to have a significant multi- bacterial infection of her lung with sputum culture growing pseudomonas aeruginosa, methicillin sensitive Staphylococcus aureus and the Klebsiella pneumoniae with a significant dyspnea on exertion over the last 2 months she was started on IV anabiotic in the form of meropenem 1 g IV piggyback every 8 hours through a midline in her right upper extremity, patient did receive a 10 day course of that the nursing staff the night before the admission reported that the patient developed to have a significant purpuric rash and the torso as well on her upper and lower extremities, she was given Solu-Medrol 120 mg IV push 1 as well as hydroxyzine 10 mg orally twice every day she was doing fine with this however she woke up in the morning at 2:00 in the morning with significant chest pain associated with increased shortness of breath, patient was sent to the emergency department at [facility] her EKG did not show any acute of normalities, however because of the presentation she was admitted to the [facility] for evaluation by cardiology, echocardiogram was obtained and that showed normal ejection fraction 55-60% with no wall motion abnormalities, patient did receive a dose of Lasix 40 mg orally once every day and she was sent back to [facility] in a stable condition. Review of Systems Constitutional: Reports weakness, Denies anorexia, Denies chronic headaches, Denies lethargy Eyes: denies blurred vision, denies bulging eye, denies decreased vision Ears, nose, mouth and throat: Denies dysphagia, Denies neck lump, Denies sore throat Cardiovascular: Reports chest pain, Reports decreased exercise tolerance, Reports dyspnea on exertion, Reports shortness of breath, Denies lightheadedness, Denies rapid heart beat, Denies syncope Respiratory: Reports congestion, Reports cough, Reports cough with sputum, Reports wheezing, Denies home oxygen, Denies sleep apnea, Denies snoring Gastrointestinal: Denies abdominal pain, Denies bloating, Denies BRBPR, Denies excessive gas, Denies heartburn, Denies loss of appetite, Denies melena, Denies nausea, Denies vomiting Genitourinary: Denies dysuria, Denies nocturia Menstruation: Reports postmenopausal Musculoskeletal: Reports gait dysfunction, Reports loss of height, Reports low back pain, Reports morning stiffness Musculoskeletal: absent: ankle pain, ankle stiffness, ankle swelling, elbow pain, elbow stiffness, elbow swelling, foot pain, foot stiffness, foot swelling, hand pain, hand stiffness, hand swelling, hip pain, hip stiffness, hip swelling, knee pain, knee stiffness, knee swelling, shoulder pain, shoulder stiffness, shoulder swelling, wrist pain, wrist stiffness, wrist swelling Integumentary: Denies pruritus, Denies rash Neurological: Reports gait dysfunction, Reports weakness, Denies numbness Psychiatric: Reports anxiety, Reports depression, Denies sadness/tearfulness, Denies sleep disturbances, Denies suicidal ideation Endocrine: Denies fatigue, Denies weight change Past Medical History Past Medical History: Asthma, Coronary Artery Disease (CAD), Cancer, Hypertension, Memory Impairment, Musculoskeletal Disorder, Osteoarthritis (OA), Sleep Apnea/CPAP/BIPAP Additional Past Medical History / Comment(s): Sjogren syndrome, RECTAL CANCER WITH COLOSTOMY , anemia, OVER ACTIVE BLADDER, hx. L4 fracture, BRONCH WASHING WAS POSITIVE FOR KLEBSIELLA PNUEMONAE., BACK PAIN. FREQUENT FALLS. History of Any Multi-Drug Resistant Organisms: ESBL, MRSA Date of last positivie culture/infection: 09/21/18 MRSA; 09/30/19 ESBL E.COLI MDRO Source:: Back-MRSA; Urine-ESBL Past Surgical History: Adenoidectomy, Appendectomy, Back Surgery, Bowel Resection, Breast Surgery, Heart Catheterization, Hysterectomy, Tonsillectomy, Uterine Ablation Additional Past Surgical History / Comment(s): PERMANENT COLOSTOMY. throat surgery removed uvula,L3-L4 two fractured vertebrae, sofi cataracts, kyphoplasty L4, PICCLINE IN MAY FOR ABX(PNE) SINCE REMOVED. PICC LINE PLACEMENT, COLONOSCOPY, EGD, UTI 08/2017 Past Anesthesia/Blood Transfusion Reactions: No Reported Reaction Additional Past Anesthesia/Blood Transfusion Reaction / Comment(s): HX OF BLOOD TRANSFUSION Past Psychological History: No Psychological Hx Reported Additional Psychological History / Comment(s): cared for in the family home by the and children. Retired. No experience. No international travel. No tobacco or alcohol use. No animal exposures Smoking Status: Never smoker Past Alcohol Use History: None Reported Additional Past Alcohol Use History / Comment(s): cared for in the family home by the and children. Retired. No experience. No international travel. No tobacco or alcohol use. No animal exposures Past Drug Use History: None Reported - Past Family History Mother History Unknown: Yes Family Medical History: Dialysis, Renal Disease Brother(s) History Unknown: Yes Family Medical History: No Reported History Sister(s) History Unknown: Yes Family Medical History: No Reported History Additional Family Medical History / Comment(s): Parkinsons Father Family Medical History: Cancer, CVA/TIA Additional Family Medical History / Comment(s): 3 out of 4 siblings dx. autoimmune disease Medications and Allergies Home Medications Medication Instructions Recorded Confirmed Type Escitalopram [Lexapro] 10 mg PO DAILY@0900 08/27/18 12/12/19 History Pilocarpine HCl [Salagen] 7.5 mg PO TID@0600,1400,2200 09/19/18 12/12/19 History Sennosides/Docusate Sodium [Dok 1 tab PO BID@0900,2100 09/19/18 12/12/19 History Plus Tablet] Cholecalciferol [Vitamin D3 (25 1,000 unit PO DAILY@0900 02/14/19 12/12/19 History Mcg = 1000 Iu)] Vit C/E/Zn/Coppr/Lutein/Zeaxan 1 cap PO DAILY@0900 02/14/19 12/12/19 History [Preservision Areds 2 Softgel] Tolterodine Tartrate [Detrol LA] 4 mg PO DAILY@0600 02/15/19 12/12/19 History Acetaminophen Tab [Tylenol] 650 mg PO Q8H 12/12/19 12/12/19 History Albuterol Sulfate [Proair 1 puff INHALATION RT-QID PRN 12/12/19 12/12/19 History Respiclick] Ammonium Lactate Lotion 1 applic TOPICAL HS 12/12/19 12/12/19 History [Lac-Hydrin 12% Lotion] Depo-Medrol 80mg/Ml 80 mg IV ONCE PRN 12/12/19 12/12/19 History Fluticasone Propionate 220 Mcg 1 puff INHALATION RT-BID@899,209912/12/19 12/12/19 History [Flovent 220 Mcg Inhaler (Mhu)] Furosemide [Lasix] 40 mg PO DAILY tab 12/12/19 Rx Gabapentin 300 mg PO BID@899,2099 #6 cap 12/12/19 Rx Hydrocortisone Cream 1 applic TOPICAL Q12H 12/12/19 12/12/19 History [Hydrocortisone 2.5% Cream] Lansoprazole 30 mg PO DAILY@0612/12/19 12/12/19 History Losartan [Cozaar] 50 mg PO DAILY@89912/12/19 12/12/19 History Magnesium Oxide 400 mg PO BID@899,209912/12/19 12/12/19 History Methyl Salicylate/Menthol 1 patch TRANSDERM DAILY@89912/12/19 12/12/19 History [Salonpas Patch] Metoprolol Succinate [Toprol XL] 25 mg PO HS@209912/12/19 12/12/19 History OLANZapine [ZyPREXA] 7.5 mg PO HS@209912/12/19 12/12/19 History Ondansetron [Zofran] 4 mg PO Q6H PRN 12/12/19 12/12/19 History Optifoam 1 applic TOPICAL DAILY PRN 12/12/19 12/12/19 History Optifoam 1 applic TOPICAL Q72H 12/12/19 12/12/19 History Propylene Glycol/Peg 400/Pf 1 drop BOTH EYES Q6H 12/12/19 12/12/19 History [Systane 0.3-0.4% Eye Drop] Z-Guard 1 applic TOPICAL DAILY PRN 12/12/19 12/12/19 History Z-Guard 1 applic TOPICAL Q12H 12/12/19 12/12/19 History cycloSPORINE 0.05% OPHTH SOLN 1 drop BOTH EYES BID@899,209912/12/19 12/12/19 History [Restasis] hydrOXYzine HCL 10 mg PO BID@899,209912/12/19 12/12/19 History oxyCODONE-APAP 7.5-325MG [Percocet 0.5 tab PO Q8H PRN #5 tab 12/12/19 Rx 7.5-325 mg] Allergies Allergy/AdvReac Type Severity Reaction Status Date / Time aspirin Allergy Anaphylaxis Verified 12/12/19 08:21 caffeine Allergy CREATES Verified 12/12/19 08:21 TOO MUCH STOMACH ACID celecoxib [From Celebrex] Allergy Rash/Hives Verified 12/12/19 08:21 codeine Allergy Anaphylaxis Verified 12/12/19 08:21 doxycycline Allergy Unknown Verified 12/12/19 08:21 hydrocodone bitartrate Allergy Unknown Verified 12/12/19 08:21 [From Gile] milk Allergy Unknown Verified 12/12/19 08:21 Penicillins Allergy Rash/Hives Verified 12/12/19 08:21 rofecoxib [From Vioxx] Allergy Rash/Hives Verified 12/12/19 08:21 clarithromycin [From Biaxin] AdvReac Nausea Verified 12/12/19 08:21 clindamycin AdvReac Nausea Verified 12/12/19 08:21 levofloxacin [From Levaquin] AdvReac Nausea Verified 12/12/19 08:21 Morpholine Analogues AdvReac Confusion Verified 12/12/19 08:21 ranitidine HCl [From Zantac] AdvReac Rash/Hives Verified 12/12/19 08:21 Physical Exam Physical examination: HEENT: Head is atraumatic, normocephalic, pupils were equal round reactive to light and accommodation, extraocular muscle movement were intact, sclera nonicteric, conjunctivae was slightly pale, mucous membranes of the mouth are somewhat dry. Neck: Supple, no JVP, decreased carotid upstroke bilaterally. Chest: Kyphosis present, decreased breath sounds at the bases, few rhonchi minimal expiratory wheezes, no chest wall Tenderness, no intercostal retractions. Heart: First heart sound is depressed, second heart sounds normal, there is systolic ejection murmur 2/6 located in the left sternal border. Abdomen: Soft, nontender, nondistended, there is a colostomy on the right lower abdomen with kayli-stoma hernia, positive bowel sounds. Extremities: Trace edema, No calf tenderness, dorsalis pedis +1 bilaterally. Neurologic examination: Patient is awake alert and oriented 3, cranial nerves III-12 appear to be grossly intact, muscle power were 4 out of 5 in upper extremities and 3 out of 5 in bilateral lower extremities, deep tendon reflexes were depressed bilaterally. Results CBC & Chem 7: 12/12/19 04:39 12/12/19 04:39 Thrombosis Risk Factor Assmnt - DVT/VTE Prophylaxis DVT/VTE Prophylaxis: Pharmacologic Prophylaxis ordered, Mechanical Prophylaxis ordered - Choose All That Apply Each Risk Factor Represents 3 Points: Age 75 years or older Thrombosis Risk Factor Assessment Total Risk Factor Score: 3 Thrombosis Risk Factor Assessment Level: Moderate Risk Assessment and Plan Assessment: Assessment and plan: 1. Chest pain of a clear etiology. Patient was ruled out for an acute event, she was seen in consultation by cardiology echocardiogram was done that showed ejection fraction 55-60%, mild mitral regurgitation and tricuspid regurgitation no wall motion abnormalities, patient will be maintained on Toprol-XL 25 mg orally once every day, she was maintained on losartan 50 mg orally once every day, and added Lasix 40 mg orally once every day and he was recommended by cardiology for the patient be discharged back to the extended care facility. 2. Recent polymicrobial pneumonia with pseudomonas aeruginosa, MSSA, Klebsiella pneumoniae. Patient did receive 10 day course of meropenem 1 g IV piggyback every 8 hours through her midline in the right upper extremity. 3. Decubitus ulcer on her back. Continued to provide Mepilex cover, patient does have a special cushion for her back at [facility] [place]. 4. Osteoporosis with history of osteoporotic fractures of right superior inferior pubic. Continue vitamin D supplement. 5. Chronic kidney failure CKD stage II, at baseline. Avoid nephrotoxic agents. 6. CAD and non-ischemic cardiomyopathy and chronic diastolic heart failure with ejection fraction of 55-60%. Continue patient on Toprol-XL 25 mg orally at bedtime along with losartan 50 minute gram orally once every day added Lasix 40 mg orally once every day. 7. Hypertension and hypertensive cardiovascular disease. Continue losartan 50 mg orally once every day as well as Toprol XL 25 mg orally once every day. 8. Sjogren syndrome. We will continue Salagen 7.5 mg orally 3 times every day as well as eyedrops. 9. Chronic anemia . Stable. 10. Chronic pain syndrome: Patient has been on Percocet. Continue Neurontin 300 mg twice daily. 11. Overactive bladder: Has been on Detrol. 12. Mild memory loss: No change, continue conservative management. 13. History of colon cancer, colostomy bag, stable 14. DVT prophylaxis. She will be started on heparin 5000 units subcu Thursday every 12 hours. 15. GI prophylaxis. Protonix. 16. Recurrent depression. We'll continue patient on Lexapro 10 mg orally once every day as well as Zyprexa. 17. Okay to discharge the patient to [facility] [place] we'll follow with her as an outpatient.
== END 2019-12-12 17:33 ==
LOC: EC 04:28 → 3NCARDOBS 06:06
PROVIDERS: ADMIT Internal Medicine; ATTEND Internal Medicine
DX: I13.0 Hypertensive heart and chronic kidney disease with heart failure and stage 1 through stage 4 chronic kidney disease, or unspecified chronic kidney disease (principal); I50.33 Acute on chronic diastolic (congestive) heart failure; N18.2 Chronic kidney disease, stage 2 (mild); J45.909 Unspecified asthma, uncomplicated; I25.10 Atherosclerotic heart disease of native coronary artery without angina pectoris; I73.9 Peripheral vascular disease, unspecified; J84.10 Pulmonary fibrosis, unspecified; J18.9 Pneumonia, unspecified organism; R41.3 Other amnesia; Z85.118 Personal history of other malignant neoplasm of bronchus and lung; Z90.2 Acquired absence of lung [part of]; M19.90 Unspecified osteoarthritis, unspecified site; F33.9 Major depressive disorder, recurrent, unspecified; G89.4 Chronic pain syndrome; G47.30 Sleep apnea, unspecified; Z99.89 Dependence on other enabling machines and devices; I42.8 Other cardiomyopathies; M35.00 Sjogren syndrome, unspecified; Z85.048 Personal history of other malignant neoplasm of rectum, rectosigmoid junction, and anus; Z93.3 Colostomy status; D64.9 Anemia, unspecified; N32.81 Overactive bladder; B96.5 Pseudomonas (aeruginosa) (mallei) (pseudomallei) as the cause of diseases classified elsewhere; B96.1 Klebsiella pneumoniae [K. pneumoniae] as the cause of diseases classified elsewhere; Z95.828 Presence of other vascular implants and grafts; M81.0 Age-related osteoporosis without current pathological fracture; R29.6 Repeated falls; J98.11 Atelectasis; L89.109 Pressure ulcer of unspecified part of back, unspecified stage; Z86.14 Personal history of Methicillin resistant Staphylococcus aureus infection; Z86.19 Personal history of other infectious and parasitic diseases; Z90.710 Acquired absence of both cervix and uterus; Z98.42 Cataract extraction status, left eye; Z98.41 Cataract extraction status, right eye; Z87.440 Personal history of urinary (tract) infections; Z98.890 Other specified postprocedural states; Z84.1 Family history of disorders of kidney and ureter; Z82.0 Family history of epilepsy and other diseases of the nervous system; Z84.89 Family history of other specified conditions; Z82.3 Family history of stroke; Z83.2 Family history of diseases of the blood and blood-forming organs and certain disorders involving the immune mechanism; Z79.899 Other long term (current) drug therapy; Z79.1 Long term (current) use of non-steroidal anti-inflammatories (NSAID); Z79.891 Long term (current) use of opiate analgesic; Z88.5 Allergy status to narcotic agent; Z88.0 Allergy status to penicillin; Z88.8 Allergy status to other drugs, medicaments and biological substances; Z88.6 Allergy status to analgesic agent; Z88.1 Allergy status to other antibiotic agents; Z91.02 Food additives allergy status
CPT/HCPCS: 96374; 99285; 36415; 93005; 93306; 97161; 97166; 83880; 80053; 83735; 84484; 85025; 85610; 85730; 71046; G0378; J1940

== ENCOUNTER 2020-04-20 14:28 | Inpatient (IN) | payer MEDICARE ==
[2020-04-20] MEDS ORDERED: SODIUM CHLORIDE 0.9% 1,000 ML IV STA (14:44)
[2020-04-20 15:20] LABS: Basophils # (A) 0.1 k/uL (0-0.2); Basophils % (A) 1 %; Eosinophils # (A) 0.3 k/uL (0-0.7); Eosinophils % (A) 3 %; HCT 36.7 % (34.0-46.0); HGB 12.4 gm/dL (11.4-16.0); Lymphocytes # (A) 0.9 k/uL (1.0-4.8); Lymphocytes % (A) 9 %; MCH 31.8 pg (25.0-35.0); MCHC 33.6 g/dL (31.0-37.0); MCV 94.4 fL (80.0-100.0); Mean Platelet Volume 7.2; Monocytes # (A) 0.7 k/uL (0-1.0); Monocytes % (A) 7 %; Neutrophils # (A) 8.1 k/uL (1.3-7.7); Neutrophils % (A) 79 %; Platelet Count 232 k/uL (150-450); RBC 3.89 m/uL (3.80-5.40); RDW 12.4 % (11.5-15.5); WBC 10.2 k/uL (3.8-10.6)
--- NOTE | 2020-04-20 15:23 | ED ---
Abdominal Pain HPI - General Source: patient, RN/MD, EMS, RN notes reviewed Mode of arrival: EMS Limitations: no limitations <[place] Rm - Last Filed: 04/20/20 17:37> <Cj Olmos - Last Filed: 04/21/20 12:32> - General Chief Complaint: Abdominal Pain Stated Complaint: Abd pain Time Seen by Provider: 04/20/20 14:34 - History of Present Illness Initial Comments: 85-year-old female presents via EMS to the emergency Department with chief complaint of abdominal pain. Patient currently resides at [facility]. Patient is a distended abdomen complaining of pain. Patient does have a colostomy which said decreased output. No fever or chills no cough or chest congestion. She states she is very thirsty no vomiting she has had slight nausea. Patient complains of dysuria no mild medications here ([place] Rm) - Related Data Home Medications Medication Instructions Recorded Confirmed Escitalopram [Lexapro] 10 mg PO DAILY@0900 08/27/18 04/20/20 Pilocarpine HCl [Salagen] 7.5 mg PO TID@0600,1400,2200 09/19/18 04/20/20 Sennosides/Docusate Sodium [Dok 1 tab PO BID@0900,2100 09/19/18 04/20/20 Plus Tablet] Cholecalciferol [Vitamin D3 (25 1,000 unit PO DAILY@0900 02/14/19 04/20/20 Mcg = 1000 Iu)] Vit C/E/Zn/Coppr/Lutein/Zeaxan 1 cap PO DAILY@0900 02/14/19 04/20/20 [Preservision Areds 2 Softgel] Tolterodine Tartrate [Detrol LA] 4 mg PO DAILY@0600 02/15/19 04/20/20 Acetaminophen Tab [Tylenol] 650 mg PO TID@0600,1400,2200 12/12/19 04/20/20 Albuterol Sulfate [Proair 1 puff INHALATION RT-QID PRN 12/12/19 04/20/20 Respiclick] Ammonium Lactate Lotion 1 applic TOPICAL HS 12/12/19 04/20/20 [Lac-Hydrin 12% Lotion] Lansoprazole 30 mg PO DAILY@0600 12/12/19 04/20/20 Losartan [Cozaar] 50 mg PO DAILY@89912/12/19 04/20/20 Magnesium Oxide 400 mg PO BID@899,209912/12/19 04/20/20 Methyl Salicylate/Menthol 1 patch TRANSDERM DAILY@89912/12/19 04/20/20 [Salonpas Patch] Metoprolol Succinate [Toprol XL] 25 mg PO HS@209912/12/19 04/20/20 OLANZapine [ZyPREXA] 7.5 mg PO HS@209912/12/19 04/20/20 Ondansetron [Zofran] 4 mg PO Q6H PRN 12/12/19 04/20/20 Propylene Glycol/Peg 400/Pf 1 drop BOTH EYES Q6H 12/12/19 04/20/20 [Systane 0.3-0.4% Eye Drop] Z-Guard 1 applic TOPICAL Q12H 12/12/19 04/20/20 cycloSPORINE 0.05% OPHTH SOLN 1 drop BOTH EYES BID@899,209912/12/19 04/20/20 [Restasis] Fluticasone Propionate [Flovent 1 puff INHALATION RT-BID@899,209904/20/20 Hfa 220 mcg] Furosemide [Lasix] 40 mg PO DAILY@89904/20/20 04/20/20 Lactulose [Cephulac] 20 gm PO BID@0900,209904/20/20 04/20/20 Previous Rx's Medication Instructions Recorded Gabapentin 300 mg PO BID@899,2099 #6 cap 12/12/19 oxyCODONE-APAP 7.5-325MG [Percocet 0.5 tab PO Q8H PRN #5 tab 12/12/19 7.5-325 mg] Allergies Allergy/AdvReac Type Severity Reaction Status Date / Time aspirin Allergy Anaphylaxis Verified 04/20/20 16:29 caffeine Allergy CREATES Verified 04/20/20 16:29 TOO MUCH STOMACH ACID celecoxib [From Celebrex] Allergy Rash/Hives Verified 04/20/20 16:29 codeine Allergy Anaphylaxis Verified 04/20/20 16:29 doxycycline Allergy Unknown Verified 04/20/20 16:29 hydrocodone bitartrate Allergy Unknown Verified 04/20/20 16:29 [From Hope] milk Allergy Unknown Verified 04/20/20 16:29 Penicillins Allergy Rash/Hives Verified 04/20/20 16:29 rofecoxib [From Vioxx] Allergy Rash/Hives Verified 04/20/20 16:29 clarithromycin [From Biaxin] AdvReac Nausea Verified 04/20/20 16:29 clindamycin AdvReac Nausea Verified 04/20/20 16:29 levofloxacin [From Levaquin] AdvReac Nausea Verified 04/20/20 16:29 Morpholine Analogues AdvReac Confusion Verified 04/20/20 16:29 ranitidine HCl [From Zantac] AdvReac Rash/Hives Verified 04/20/20 16:29 Review of Systems ROS Other: All systems not noted in ROS Statement are negative. <Israel Rm - Last Filed: 04/20/20 17:37> ROS Other: All systems not noted in ROS Statement are negative. <Cj Olmos - Last Filed: 04/21/20 12:32> ROS Statement: Those systems with pertinent positive or pertinent negative responses have been documented in the HPI. Past Medical History Past Medical History: Asthma, Coronary Artery Disease (CAD), Cancer, Hypertension, Memory Impairment, Musculoskeletal Disorder, Osteoarthritis (OA), Sleep Apnea/CPAP/BIPAP Additional Past Medical History / Comment(s): Sjogren syndrome, RECTAL CANCER WITH COLOSTOMY , anemia, OVER ACTIVE BLADDER, hx. L4 fracture, BRONCH WASHING WAS POSITIVE FOR KLEBSIELLA PNUEMONAE., BACK PAIN. FREQUENT FALLS. History of Any Multi-Drug Resistant Organisms: ESBL, MRSA Date of last positivie culture/infection: 09/21/18 MRSA; 09/30/19 ESBL E.COLI MDRO Source:: Back-MRSA; Urine-ESBL Past Surgical History: Adenoidectomy, Appendectomy, Back Surgery, Bowel Resection, Breast Surgery, Heart Catheterization, Hysterectomy, Tonsillectomy, Uterine Ablation Additional Past Surgical History / Comment(s): PERMANENT COLOSTOMY. throat surgery removed uvula,L3-L4 two fractured vertebrae, sofi cataracts, kyphoplasty L4, PICCLINE IN MAY FOR ABX(PNE) SINCE REMOVED. PICC LINE PLACEMENT, COLONOSCOPY, EGD, UTI 08/2017 Past Anesthesia/Blood Transfusion Reactions: No Reported Reaction Additional Past Anesthesia/Blood Transfusion Reaction / Comment(s): HX OF BLOOD TRANSFUSION Past Psychological History: No Psychological Hx Reported Smoking Status: Never smoker Past Alcohol Use History: None Reported Past Drug Use History: None Reported - Past Family History Mother History Unknown: Yes Family Medical History: Dialysis, Renal Disease Brother(s) History Unknown: Yes Family Medical History: No Reported History Sister(s) History Unknown: Yes Family Medical History: No Reported History Additional Family Medical History / Comment(s): Parkinsons Father Family Medical History: Cancer, CVA/TIA Additional Family Medical History / Comment(s): 3 out of 4 siblings dx. autoimmune disease <[place] Rm M - Last Filed: 04/20/20 17:37> General Exam Limitations: no limitations General appearance: alert, in no apparent distress Head exam: Present: atraumatic, normocephalic, normal inspection Eye exam: Present: normal appearance, PERRL, EOMI. Absent: scleral icterus, conjunctival injection, periorbital swelling ENT exam: Present: mucous membranes dry. Absent: mucous membranes moist Neck exam: Present: normal inspection, full ROM. Absent: tenderness, meningismus, lymphadenopathy Respiratory exam: Present: normal lung sounds bilaterally. Absent: respiratory distress, wheezes, rales, rhonchi, stridor Cardiovascular Exam: Present: regular rate, normal rhythm, normal heart sounds. Absent: systolic murmur, diastolic murmur, rubs, gallop, clicks GI/Abdominal exam: Present: soft, distended, tenderness, normal bowel sounds, other (No output in the colostomy). Absent: guarding, rebound, rigid Back exam: Absent: CVA tenderness (R), CVA tenderness (L) Neurological exam: Present: alert, oriented X3 Skin exam: Present: warm, dry, intact, normal color. Absent: rash <[place] Rm M - Last Filed: 04/20/20 17:37> Course Vital Signs 04/20/20 04/20/20 04/20/20 14:37 16:10 18:13 Temperature 97.9 F 98.4 F Pulse Rate 81 81 84 Respiratory 20 22 20 Rate Blood Pressure 118/62 138/75 142/86 O2 Sat by Pulse 98 97 97 Oximetry 04/20/20 20:31 Temperature 98.3 F Pulse Rate 84 Respiratory 22 Rate Blood Pressure 152/74 O2 Sat by Pulse 96 Oximetry Medical Decision Making - Lab Data Result diagrams: 04/20/20 14:57 04/20/20 14:57 <Israel Rm - Last Filed: 04/20/20 17:37> - Lab Data Result diagrams: 04/21/20 06:36 04/21/20 06:36 <Cj Olmos - Last Filed: 04/21/20 12:32> - Medical Decision Making 85-year-old female presented for abdominal pain. Patient CT shows evidence of abdominal hernia with incarceration, mechanical ball structures. Patient's had decreased output which is noted by staff and they have attempted to do lactulose and placed suppository in her stoma. Patient had no improvement. Patient was evaluated by her PCP Dr. Garcia and case discussed with Dr. Garcia in the emergency department. Patient had known stoma hernia has had multiple abdominal surgeries. Patient found to be dehydrated with acute kidney injury, old extraction with urinary tract infection. Case discussed with Dr. Falcon who recommended NG tube, nothing by mouth, fluids. (Israel Rm) 85-year-old female presenting for abdominal pain, dehydration. She has a history of multiple abdominal surgeries and a known history of a ventral parastomal hernia. She's had decreased stool output over the past one week. She has been evaluated by both myself and her primary care physician Dr. Garcia in the emergency department. CT showing concern for incarcerated hernia as well as small bowel obstruction and some inflammatory change. She started on antibiotics. I did consult Dr. Falcon and discussed case. (Cj Olmos) - Lab Data Lab Results 04/20/20 04/20/20 04/20/20 Range/Units 14:57 14:57 14:57 WBC 10.2 (3.8-10.6) k/uL RBC 3.89 (3.80-5.40) m/uL Hgb 12.4 (11.4-16.0) gm/dL Hct 36.7 (34.0-46.0) % MCV 94.4 (80.0-100.0) fL MCH 31.8 (25.0-35.0) pg MCHC 33.6 (31.0-37.0) g/dL RDW 12.4 (11.5-15.5) % Plt Count 232 (150-450) k/uL MPV 7.2 Neutrophils % 79 % Lymphocytes % 9 % Monocytes % 7 % Eosinophils % 3 % Basophils % 1 % Neutrophils # 8.1 H (1.3-7.7) k/uL Lymphocytes # 0.9 L (1.0-4.8) k/uL Monocytes # 0.7 (0-1.0) k/uL Eosinophils # 0.3 (0-0.7) k/uL Basophils # 0.1 (0-0.2) k/uL PT 10.2 (9.0-12.0) sec INR 0.9 (<1.2) APTT 24.4 (22.0-30.0) sec Sodium (137-145) mmol/L Potassium (3.5-5.1) mmol/L Chloride (98-107) mmol/L Carbon Dioxide (22-30) mmol/L Anion Gap mmol/L BUN (7-17) mg/dL Creatinine (0.52-1.04) mg/dL Est GFR (CKD-EPI)AfAm (>60 ml/min/1.73 sqM) Est GFR (CKD-EPI)NonAf (>60 ml/min/1.73 sqM) Glucose (74-99) mg/dL Plasma Lactic Acid Ric (0.7-2.0) mmol/L Calcium (8.4-10.2) mg/dL Total Bilirubin (0.2-1.3) mg/dL AST (14-36) U/L ALT (4-34) U/L Alkaline Phosphatase (38-126) U/L Total Protein (6.3-8.2) g/dL Albumin (3.5-5.0) g/dL Amylase (30-110) U/L Lipase (23-300) U/L Urine Color Yellow Urine Appearance Cloudy H (Clear) Urine pH 6.0 (5.0-8.0) Ur Specific [place] 1.016 (1.001-1.035) Urine Protein Trace H (Negative) Urine Glucose (UA) Negative (Negative) Urine Ketones Negative (Negative) Urine Blood Negative (Negative) Urine Nitrite Positive H (Negative) Urine Bilirubin Negative (Negative) Urine Urobilinogen <2.0 (<2.0) mg/dL Ur Leukocyte Esterase Large H (Negative) Urine RBC 2 (0-5) /hpf Urine WBC 121 H (0-5) /hpf Urine WBC Clumps Few H (None) /hpf Urine Bacteria Moderate H (None) /hpf Urine Mucus Rare H (None) /hpf 04/20/20 04/20/20 Range/Units 14:57 14:57 WBC (3.8-10.6) k/uL RBC (3.80-5.40) m/uL Hgb (11.4-16.0) gm/dL Hct (34.0-46.0) % MCV (80.0-100.0) fL MCH (25.0-35.0) pg MCHC (31.0-37.0) g/dL RDW (11.5-15.5) % Plt Count (150-450) k/uL MPV Neutrophils % % Lymphocytes % % Monocytes % % Eosinophils % % Basophils % % Neutrophils # (1.3-7.7) k/uL Lymphocytes # (1.0-4.8) k/uL Monocytes # (0-1.0) k/uL Eosinophils # (0-0.7) k/uL Basophils # (0-0.2) k/uL PT (9.0-12.0) sec INR (<1.2) APTT (22.0-30.0) sec Sodium 130 L (137-145) mmol/L Potassium 5.8 H (3.5-5.1) mmol/L Chloride 92 L (98-107) mmol/L Carbon Dioxide 29 (22-30) mmol/L Anion Gap 9 mmol/L BUN 69 H (7-17) mg/dL Creatinine 1.73 H (0.52-1.04) mg/dL Est GFR (CKD-EPI)AfAm 30 (>60 ml/min/1.73 sqM) Est GFR (CKD-EPI)NonAf 26 (>60 ml/min/1.73 sqM) Glucose 113 H (74-99) mg/dL Plasma Lactic Acid Ric 0.9 (0.7-2.0) mmol/L Calcium 8.5 (8.4-10.2) mg/dL Total Bilirubin 0.7 (0.2-1.3) mg/dL AST 29 (14-36) U/L ALT 20 (4-34) U/L Alkaline Phosphatase 89 (38-126) U/L Total Protein 7.0 (6.3-8.2) g/dL Albumin 3.6 (3.5-5.0) g/dL Amylase <30 L (30-110) U/L Lipase 11 L (23-300) U/L Urine Color Urine Appearance (Clear) Urine pH (5.0-8.0) Ur Specific [place] (1.001-1.035) Urine Protein (Negative) Urine Glucose (UA) (Negative) Urine Ketones (Negative) Urine Blood (Negative) Urine Nitrite (Negative) Urine Bilirubin (Negative) Urine Urobilinogen (<2.0) mg/dL Ur Leukocyte Esterase (Negative) Urine RBC (0-5) /hpf Urine WBC (0-5) /hpf Urine WBC Clumps (None) /hpf Urine Bacteria (None) /hpf Urine Mucus (None) /hpf Critical Care Time Critical Care Time: Yes Total Critical Care Time: 35 <Israel Rm - Last Filed: 04/20/20 17:37> Critical Care Time: 35 minutes of critical care time recent issue avid patient, reviewed by smoker she discussed the case with PCP, surgeon. Patient's found to have acute kidney injury related dehydration, incarcerated hernia with bowel obstruction and urinary tract infection. Patient was started on broad-spectrum antibiotics patient will be admitted for likely surgical intervention. ([place] Rm) Disposition <[place] Rm - Last Filed: 04/20/20 17:37> <Cj Olmos - Last Filed: 04/21/20 12:32> Clinical Impression: UTI (urinary tract infection), Incarcerated hernia, Bowel obstruction, Dehydration, Acute kidney injury Disposition: ADMITTED IP TO THIS [facility] Condition: Serious
[2020-04-20 15:32] LABS: ALT 20 U/L (4-34); African American GFR (CKD) 30 (>60 ml/min/1.73 sqM); Albumin 3.6 g/dL (3.5-5.0); Amylase <30 U/L (30-110); Anion Gap 9 mmol/L; Blood Urea Nitrogen 69 mg/dL (7-17); Calcium 8.5 mg/dL (8.4-10.2); Carbon Dioxide 29 mmol/L (22-30); Chloride 92 mmol/L (98-107); Glucose 113 mg/dL (74-99); Lipase 11 U/L (23-300); Non-African American GFR(CKD) 26 (>60 ml/min/1.73 sqM); Sodium 130 mmol/L (137-145); Total Bilirubin 0.7 mg/dL (0.2-1.3)
[2020-04-20 15:35] LABS: AST 29 U/L (14-36); Alkaline Phosphatase 89 U/L (38-126); Potassium 5.8 mmol/L (3.5-5.1)
[2020-04-20 15:36] LABS: INR 0.9 (<1.2); Partial Thromboplastin Time 24.4 sec (22.0-30.0); Prothrombin Time 10.2 sec (9.0-12.0)
[2020-04-20 15:40] LABS: Appearance,Urine Cloudy (Clear); Bacteria,Urine Moderate /hpf; Bilirubin,Urine Negative (Negative); Blood,Urine Negative (Negative); Color,Urine Yellow; Glucose,Urine (UA) Negative (Negative); Ketones,Urine Negative (Negative); Leukocyte Esterase,Urine Large (Negative); Mucus,Urine Rare /hpf; Nitrite,Urine Positive (Negative); Protein,Urine Trace (Negative); RBC,Urine 2 /hpf (0-5); Specific Gravity,Urine 1.016 (1.001-1.035); Urobilinogen,Urine <2.0 mg/dL (<2.0); WBC,Urine 121 /hpf (0-5)
[2020-04-20] MEDS ORDERED: SODIUM CHLORIDE 0.9% 500 ML 500 ML IV ONE (15:52)
[2020-04-20] MEDS: SODIUM CHLORIDE 0.9% 1,000 ML IV SCH (16:10)
--- NOTE | 2020-04-20 17:13 | CT ---
EXAMINATION TYPE: CT abdomen pelvis wo con DATE OF EXAM: 04/20/2020 COMPARISON: None HISTORY: Abdominal pain. CT DLP: 728.2 mGycm Automated exposure control for dose reduction was used. Images were obtained from the diaphragm to the floor the pelvis with no contrast. There is some scarring and atelectasis at both lung bases. There is no pleural effusion. There is no pericardial effusion. Heart size is fairly normal. Liver is intact. Gallbladder has normal size. There are small calcified splenic granulomata. There is no evidence of pancreatic mass. There is pancreatic atrophy. Stomach is intact. Stomach is relativel y large. There is no adrenal mass. Kidneys show normal size. There is no hydronephrosis. Ureters are not dilat ed. Bladder distends smoothly. There is no inguinal hernia. There is right hip prosthesis. There is n o evidence of a pelvic mass. There is no free fluid in the pelvis. There is large right side abdominal wall ventral hernia that contains multiple loops of bowel. Hernia measures 6 x 12 cm. The opening is 5.5 cm. The small bowel measures up to 3.5 cm in diameter. The te rminal ileum is not dilated. There is mild thoracolumbar kyphotic deformity. There is numerous thoracic and lumbar compression fra ctures up to 70%. There is vertebroplasty at L3 and L4. There is vertebroplasty at T8 and T7. IMPRESSION: Large right lateral abdominal wall ventral hernia with incarceration. There are some mildly dilated l oops of small bowel in consistent with a partial mechanical obstruction related to the hernia. Numerous thoracic and lumbar compression fractures.
[2020-04-20] MEDS ORDERED: metroNIDAZOLE-NS PMX 500 MG in SALINE 1 100ML.BAG IVPB STA (17:28)
[2020-04-20] MEDS ORDERED: ONDANSETRON 4 MG/2 ML VIAL IVP PRN (17:41)
[2020-04-20] MEDS ORDERED: NALOXONE 0.4 MG/ML 1 ML VIAL IV PRN (17:41)
--- NOTE | 2020-04-20 17:54 | P.HPIM ---
History of Present Illness H&P Date: 04/20/20 Chief Complaint: Abdominal pain, incarcerated hernia with bowel obstruction. This is an 85-year-old female patient of Dr. Garcia and Dr. Pulido with past medical history of asthma, CAD with ischemic cardiomyopathy, previous history of lung cancer post resection who is known to have severe lower back pain, history of Klebsiella pneumoniae ESBL urinary tract infection, memory impairment, rectal cancer post low anterior resection with colostomy placement and she has had her stoma moved from one side to the other times to with significant peristomal hernia, patient developed to have a significant abdominal pain as well as constipation over the last few days at [facility] on the [place] at that time she was given a Dulcolax suppository through the stoma and she was s tarted on lactulose 30 g orally twice every day patient has been complaining of increased abdominal pain and distention not able to have a good BM through the stoma, an x-ray was done over there and that showed nonobstructive gas pattern with significant stool buildup, patient today was having increased amount of pain associated with nausea and not able to eat or drink she was dehydrated as well has not been eating much over the last few days, she was directed to go to the emergency department at [facility] where she was found to have an acute kidney injury as well a hyperkalemia, patient underwent CT abdomen and pelvis without contrast that showed a large right side abdominal wall ventral hernia that contains multiple loops of the small bowel hernia measures about 612 cm the opening is 5.5 cm the small bowel measures up to 3.5 cm in diameter there was incarcerated in and some mildly dilated loops of small bowel consistent with partial mechanical obstruction related to the hernia, patient was started on IV fluid as well as IV antibiotic, and surgical consultation was obtained from and had a long conversation with the emergency room physician on the complexity of the case and if the patient is not a candidate for any surgical intervention at [facility] she will need to be transferred to [facility], this was discussed with her over the phone. Review of Systems Constitutional: Reports anorexia, Reports fatigue, Reports lethargy, Reports malaise, Reports weakness, Reports weight loss Eyes: denies blurred vision, denies bulging eye, denies decreased vision Ears: bilateral: decreased hearing Ears, nose, mouth and throat: Denies dysphagia, Denies neck lump, Denies sore throat Cardiovascular: Denies chest pain, Denies decreased exercise tolerance, Denies dyspnea on exertion, Denies lightheadedness, Denies rapid heart beat, Denies shortness of breath, Denies syncope Respiratory: Denies congestion, Denies cough with sputum, Denies home oxygen, Denies sleep apnea, Denies snoring, Denies wheezing Gastrointestinal: Reports abdominal pain, Reports bloating, Reports constipation, Reports early satiety, Reports loss of appetite, Reports nausea, Reports vomiting Genitourinary: Denies dysuria, Denies nocturia Menstruation: Reports postmenopausal Musculoskeletal: Reports atrophy, Reports frequent falls, Reports gait dysfunction, Reports loss of height, Reports low back pain, Reports muscle weakness Musculoskeletal: absent: ankle pain, ankle stiffness, ankle swelling, elbow pain, elbow stiffness, elbow swelling, foot pain, foot stiffness, foot swelling, hand pain, hand stiffness, hand swelling, hip pain, hip stiffness, hip swelling, knee pain, knee stiffness, knee swelling, shoulder pain, shoulder stiffness, shoulder swelling, wrist pain, wrist stiffness, wrist swelling Integumentary: Denies pruritus, Denies rash Neurological: Reports balance difficulties, Reports gait dysfunction, Reports weakness Psychiatric: Denies anxiety, Denies depression Past Medical History Past Medical History: Asthma, Coronary Artery Disease (CAD), Cancer, Hyperlipidemia, Hypertension, Memory Impairment, Musculoskeletal Disorder, Osteoarthritis (OA), Sleep Apnea/CPAP/BIPAP Additional Past Medical History / Comment(s): Sjogren syndrome, RECTAL CANCER WITH COLOSTOMY , anemia, OVER ACTIVE BLADDER, hx. L4 fracture, BRONCH WASHING WAS POSITIVE FOR KLEBSIELLA PNUEMONAE., BACK PAIN. FREQUENT FALLS. History of Any Multi-Drug Resistant Organisms: ESBL, MRSA Date of last positivie culture/infection: 09/21/18 MRSA; 09/30/19 ESBL E.COLI MDRO Source:: Back-MRSA; Urine-ESBL Past Surgical History: Adenoidectomy, Appendectomy, Back Surgery, Bowel Resection, Breast Surgery, Heart Catheterization, Hysterectomy, Tonsillectomy, Uterine Ablation Additional Past Surgical History / Comment(s): PERMANENT COLOSTOMY. throat surgery removed uvula,L3-L4 two fractured vertebrae, sofi cataracts, kyph oplasty L4, PICCLINE IN MAY FOR ABX(PNE) SINCE REMOVED. PICC LINE PLACEMENT, COLONOSCOPY, EGD, UTI 08/2017 Past Anesthesia/Blood Transfusion Reactions: No Reported Reaction Additional Past Anesthesia/Blood Transfusion Reaction / Comment(s): HX OF BLOOD TRANSFUSION Past Psychological History: No Psychological Hx Reported Smoking Status: Never smoker Past Alcohol Use History: None Reported Past Drug Use History: None Reported - Past Family History Mother History Unknown: Yes Family Medical History: Dialysis, Renal Disease Brother(s) History Unknown: Yes Family Medical History: No Reported History Sister(s) History Unknown: Yes Family Medical History: No Reported History Additional Family Medical History / Comment(s): Parkinsons Father Family Medical History: Cancer, CVA/TIA Additional Family Medical History / Comment(s): 3 out of 4 siblings dx. autoimmune disease Medications and Allergies Home Medications Medication Instructions Recorded Confirmed Type Escitalopram [Lexapro] 10 mg PO DAILY@0900 08/27/18 04/20/20 History Pilocarpine HCl [Salagen] 7.5 mg PO TID@0600,1400,2200 09/19/18 04/20/20 History Sennosides/Docusate Sodium [Dok 1 tab PO BID@0900,2100 09/19/18 04/20/20 History Plus Tablet] Cholecalciferol [Vitamin D3 (25 1,000 unit PO DAILY@0900 02/14/19 04/20/20 History Mcg = 1000 Iu)] Vit C/E/Zn/Coppr/Lutein/Zeaxan 1 cap PO DAILY@0900 02/14/19 04/20/20 History [Preservision Areds 2 Softgel] Tolterodine Tartrate [Detrol LA] 4 mg PO DAILY@0600 02/15/19 04/20/20 History Acetaminophen Tab [Tylenol] 650 mg PO TID@0600,1400,2200 12/12/19 04/20/20 History Albuterol Sulfate [Proair 1 puff INHALATION RT-QID PRN 12/12/19 04/20/20 History Respiclick] Ammonium Lactate Lotion 1 applic TOPICAL HS 12/12/19 04/20/20 History [Lac-Hydrin 12% Lotion] Gabapentin 300 mg PO BID@0900,2100 #6 cap 12/12/19 04/20/20 Rx Lansoprazole 30 mg PO DAILY@0600 12/12/19 04/20/20 History Losartan [Cozaar] 50 mg PO DAILY@89912/12/19 04/20/20 History Magnesium Oxide 400 mg PO BID@899,209912/12/19 04/20/20 History Methyl Salicylate/Menthol 1 patch TRANSDERM DAILY@89912/12/19 04/20/20 History [Salonpas Patch] Metoprolol Succinate [Toprol XL] 25 mg PO HS@209912/12/19 04/20/20 History OLANZapine [ZyPREXA] 7.5 mg PO HS@209912/12/19 04/20/20 History Ondansetron [Zofran] 4 mg PO Q6H PRN 12/12/19 04/20/20 History Propylene Glycol/Peg 400/Pf 1 drop BOTH EYES Q6H 12/12/19 04/20/20 History [Systane 0.3-0.4% Eye Drop] Z-Guard 1 applic TOPICAL Q12H 12/12/19 04/20/20 History cycloSPORINE 0.05% OPHTH SOLN 1 drop BOTH EYES BID@899,209912/12/19 04/20/20 History [Restasis] oxyCODONE-APAP 7.5-325MG [Percocet 0.5 tab PO Q8H PRN #5 tab 12/12/19 04/20/20 Rx 7.5-325 mg] Fluticasone Propionate [Flovent 1 puff INHALATION RT-BID@0900,209904/20/20 04/20/20 History Hfa 220 mcg] Furosemide [Lasix] 40 mg PO DAILY@89904/20/20 04/20/20 History Lactulose [Cephulac] 20 gm PO BID@0900,209904/20/20 04/20/20 History Allergies Allergy/AdvReac Type Severity Reaction Status Date / Time aspirin Allergy Anaphylaxis Verified 04/20/20 16:29 caffeine Allergy CREATES Verified 04/20/20 16:29 TOO MUCH STOMACH ACID celecoxib [From Celebrex] Allergy Rash/Hives Verified 04/20/20 16:29 codeine Allergy Anaphylaxis Verified 04/20/20 16:29 doxycycline Allergy Unknown Verified 04/20/20 16:29 hydrocodone bitartrate Allergy Unknown Verified 04/20/20 16:29 [From [place]] milk Allergy Unknown Verified 04/20/20 16:29 Penicillins Allergy Rash/Hives Verified 04/20/20 16:29 rofecoxib [From Vioxx] Allergy Rash/Hives Verified 04/20/20 16:29 clarithromycin [From Biaxin] AdvReac Nausea Verified 04/20/20 16:29 clindamycin AdvReac Nausea Verified 04/20/20 16:29 levofloxacin [From Levaquin] AdvReac Nausea Verified 04/20/20 16:29 Morpholine Analogues AdvReac Confusion Verified 04/20/20 16:29 ranitidine HCl [From Zantac] AdvReac Rash/Hives Verified 04/20/20 16:29 Physical Exam Vitals: Vital Signs Temp Pulse Resp BP Pulse Ox 04/20/20 16:10 81 22 138/75 97 04/20/20 14:37 97.9 F 81 20 118/62 98 Intake and Output 04/20/20 04/20/20 04/20/20 06:59 14:59 22:59 Other: Weight 65.771 kg Physical examination HEENT: Head is atraumatic, normocephalic, pupils were equal round reactive to light and recommendation, extraocular muscle movement were intact, sclera nonicteric conjunctiva are pale, mucous membranes of mouth are somewhat dry. Neck: Supple, no JVD, decreased carotid upstroke bilaterally. Chest: There is significant kyphosis present, decreased breath sounds at the bases, few rhonchi, no expiratory wheezes, no chest wall tenderness, no intercostal retractions. Heart: First heart sound is depressed, second heart sounds normal, there is systolic ejection murmur 2/6 located in the left border. Abdomen: Soft and distended moderate tenderness of the right lower quadrant, there is peristomal hernia with significant ventral hernia in that area, associated with significant tenderness to palpation, positive for guarding, positive bowel sounds. Stoma bag is empty. Extremities: There is trace edema, no calf tenderness, dorsalis pedis +1 bilaterally. Neurologic examination: Patient is stuporous opens her eyes in response to ve rbal stimuli, muscle power were 3 out of 5 in upper extremities and 2 out of 5 in bilateral lower extremities, deep tendon reflexes were depressed bilaterally. Results CBC & Chem 7: 04/21/20 06:36 04/21/20 06:36 Labs: Abnormal Lab Results - Last 24 Hours (Table) 04/20/20 04/20/20 04/20/20 Range/Units 14:57 14:57 14:57 Neutrophils # 8.1 H (1.3-7.7) k/uL Lymphocytes # 0.9 L (1.0-4.8) k/uL Sodium 130 L (137-145) mmol/L Potassium 5.8 H (3.5-5.1) mmol/L Chloride 92 L (98-107) mmol/L BUN 69 H (7-17) mg/dL Creatinine 1.73 H (0.52-1.04) mg/dL Glucose 113 H (74-99) mg/dL Amylase <30 L (30-110) U/L Lipase 11 L (23-300) U/L Urine Appearance Cloudy H (Clear) Urine Protein Trace H (Negative) Urine Nitrite Positive H (Negative) Ur Leukocyte Esterase Large H (Negative) Urine WBC 121 H (0-5) /hpf Urine WBC Clumps Few H (None) /hpf Urine Bacteria Moderate H (None) /hpf Urine Mucus Rare H (None) /hpf Thrombosis Risk Factor Assmnt - DVT/VTE Prophylaxis DVT/VTE Prophylaxis: Pharmacologic Prophylaxis ordered, Mechanical Prophylaxis ordered Assessment and Plan Assessment: Assessment and plan: 1. Large right lateral abdominal wall hernia with incarceration. Start the patient on IV fluid in the form of normal saline at 125 mL an hour, monitor input and output and daily weight, pain control, surgery consultation to see the patient, this is a high-risk patient and patient may need to go to a tertiary care center if deemed reasonable by general surgery team, we'll start the pat ient on IV antibiotic Rocephin 1 g IV piggyback every 24 hours, metronidazole 500 mg IV piggyback every 8 hours, continue current pain management, monitor the patient respiratory status. 2. Acute kidney injury due to poor oral intake of fluid and acute tubular necrosis. Continue IV fluid resuscitation normal saline 1 25 mL an hour, monitor input and output and daily weight, check the patient CMP tomorrow morning to 3. Hyperkalemia likely related to acute kidney injury. Continue IV fluid re suscitation and repeat her potassium level in the next few hours. 4. Metabolic encephalopathy secondary to acute kidney injury as well as incarcerated large ventral hernia. Continue IV fluid, continue IV antibiotic, monitor the patient very closely. 5. Chronic kidney failure CKD stage II currently with acute kidney injury continue IV fluid resuscitation repeat CMP tomorrow morning. 6. CAD and non-ischemic cardiomyopathy and chronic diastolic heart failure with ejection fraction of 50%. We will maintain the patient on metoprolol 7. Hypertension and hypertensive cardiovascular disease. Continue metoprolol, hold lisinopril for now. 8. Sjogren syndrome. We'll hold off Salagen 9. Anemia of chronic medical illnesses. Continue to monitor the patient's CBC over the next 24 hours. 10. Chronic pain syndrome. We will hold off oral medication start the patient on IV pain management. 11. Overactive bladder. Discontinue Detrol. 12. 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 Appears to be at baseline. 13. History of rectal cancer post-low anterior resection with colostomy placement . 14. DVT prophylaxis. Start the patient on Lovenox 30 mg subcutaneously every 24 hours. 15. GI prophylaxis. Protonix 40 mg IV push every 24 hours. 16. Recurrent depression. Hold off Zyprexa and Lexapro for now. 17. Admit to inpatient. Estimate a length of stay 2 midnights. 18. Patient is full code.
[2020-04-20] MEDS ORDERED: NON FORMULARY DRUG (Z-Guard 1 APPLIC) TOPICAL SCH (18:00)
[2020-04-20 19:07] LABS: Basophils # (A) 0.1 k/uL (0-0.2); Basophils % (A) 1 %; Eosinophils # (A) 0.4 k/uL (0-0.7); Eosinophils % (A) 4 %; HCT 37.3 % (34.0-46.0); HGB 12.5 gm/dL (11.4-16.0); Lymphocytes # (A) 0.9 k/uL (1.0-4.8); Lymphocytes % (A) 10 %; MCH 31.9 pg (25.0-35.0); MCHC 33.4 g/dL (31.0-37.0); MCV 95.5 fL (80.0-100.0); Monocytes # (A) 0.6 k/uL (0-1.0); Monocytes % (A) 6 %; Neutrophils # (A) 7.8 k/uL (1.3-7.7); Neutrophils % (A) 79 %; Platelet Count 207 k/uL (150-450); RDW 12.3 % (11.5-15.5); WBC 9.9 k/uL (3.8-10.6)
[2020-04-20 19:17] LABS: Albumin 3.4 g/dL (3.5-5.0); Calcium 8.1 mg/dL (8.4-10.2); Potassium 4.9 mmol/L (3.5-5.1); Total Bilirubin 0.4 mg/dL (0.2-1.3); Total Protein 6.7 g/dL (6.3-8.2)
[2020-04-20] MEDS: FLUTICASONE 220 MCG INHALER INHALATION SCH (20:55)
[2020-04-20] MEDS: AMMONIUM LACTATE 12% LOTION 225 GM BTL TOPICAL SCH (22:04)
[2020-04-20] MEDS: cycloSPORINE 0.05% OPHTH 0.4 ML DROPERETTE BOTH EYES SCH (22:04)
[2020-04-20] MEDS: METOPROLOL SUCCINATE (ER) 25 MG TAB.ER.24H PO SCH (22:04)
[2020-04-20] MEDS: metroNIDAZOLE-NS PMX 500 MG in SALINE 1 100ML.BAG IVPB SCH (22:48)
[2020-04-20] MEDS: oxyCODONE-APAP 7.5-325MG 1 EACH TAB PO PRN (22:49)
[2020-04-21 07:40] LABS: Basophils # (A) 0.1 k/uL (0-0.2); Basophils % (A) 1 %; Eosinophils # (A) 0.3 k/uL (0-0.7); Eosinophils % (A) 3 %; HCT 36.6 % (34.0-46.0); HGB 12.2 gm/dL (11.4-16.0); Lymphocytes # (A) 0.4 k/uL (1.0-4.8); Lymphocytes % (A) 4 %; MCH 31.6 pg (25.0-35.0); MCHC 33.3 g/dL (31.0-37.0); Mean Platelet Volume 8.1; Monocytes # (A) 0.6 k/uL (0-1.0); Monocytes % (A) 6 %; Neutrophils # (A) 9.2 k/uL (1.3-7.7); Neutrophils % (A) 87 %; Platelet Count 228 k/uL (150-450); RBC 3.85 m/uL (3.80-5.40); RDW 12.3 % (11.5-15.5); WBC 10.6 k/uL (3.8-10.6)
[2020-04-21 07:44] LABS: Albumin 3.4 g/dL (3.5-5.0); Calcium 8.5 mg/dL (8.4-10.2); Potassium 4.6 mmol/L (3.5-5.1); Total Bilirubin 0.5 mg/dL (0.2-1.3); Total Protein 6.4 g/dL (6.3-8.2)
[2020-04-21] MEDS: PANTOPRAZOLE 40 MG/10 ML VIAL IVP SCH (08:27)
[2020-04-21] MEDS: cycloSPORINE 0.05% OPHTH 0.4 ML DROPERETTE BOTH EYES SCH ×2 (08:28→19:44)
[2020-04-21] MEDS: ENOXAPARIN 30 MG/0.3 ML SYRINGE SQ SCH (08:28)
[2020-04-21] MEDS: metroNIDAZOLE-NS PMX 500 MG in SALINE 1 100ML.BAG IVPB SCH ×3 (08:28→23:13)
[2020-04-21] MEDS: SODIUM CHLORIDE 0.9% 1,000 ML IV SCH ×2 (08:28→11:59)
[2020-04-21] MEDS ORDERED: NON FORMULARY DRUG (Methyl Salicylate/Menthol [Salonpas Patch] 1 EACH Adh..Patch) TRANSDERM SCH (09:00)
[2020-04-21] MEDS: FLUTICASONE 220 MCG INHALER INHALATION SCH ×2 (09:14→19:44)
--- NOTE | 2020-04-21 10:29 | P.GSCN ---
History of Present Illness Consult date: 04/21/20 Reason for Consult: Incarcerated parastomal hernia History of present illness: This is a 5-year-old female with a previous history of diverticulitis and colostomy. Patient has developed a large parastomal hernia with incarcerated small bowel. She has significant abdominal pain and problems with intermittent obstruction. Past Medical History Past Medical History: Asthma, Coronary Artery Disease (CAD), Cancer, Hyperlipidemia, Hypertension, Memory Impairment, Musculoskeletal Disorder, Osteoarthritis (OA), Sleep Apnea/CPAP/BIPAP Additional Past Medical History / Comment(s): Sjogren syndrome, RECTAL CANCER WITH COLOSTOMY , anemia, OVER ACTIVE BLADDER, hx. L4 fracture, BRONCH WASHING WAS POSITIVE FOR KLEBSIELLA PNUEMONAE., BACK PAIN. FREQUENT FALLS. History of Any Multi-Drug Resistant Organisms: ESBL, MRSA Year Discovered:: 09/21/18 MRSA; 09/30/19 ESBL E.COLI MDRO Source:: Back-MRSA; Urine-ESBL Past Surgical History: Adenoidectomy, Appendectomy, Back Surgery, Bowel R esection, Breast Surgery, Heart Catheterization, Hysterectomy, Tonsillectomy, Uterine Ablation Additional Past Surgical History / Comment(s): PERMANENT COLOSTOMY. throat surg kacy removed uvula,L3-L4 two fractured vertebrae, sofi cataracts, kyphoplasty L4, PICCLINE IN MAY FOR ABX(PNE) SINCE REMOVED. PICC LINE PLACEMENT, COLONOSCOPY, EGD, UTI 08/2017 Past Anesthesia/Blood Transfusion Reactions: No Reported Reaction Additional Past Anesthesia/Blood Transfusion Reaction / Comm: HX OF BLOOD TRANSFUSION Past Psychological History: No Psychological Hx Reported Additional Psychological History / Comment(s): cared for in the family home by the and children. Retired. No experience. No international travel. No tobacco or alcohol use. No animal exposures Smoking Status: Never smoker Past Alcohol Use History: None Reported Additional Past Alcohol Use History / Comment(s): cared for in the family home by the and children. Retired. No experience. No international travel. No tobacco or alcohol use. No animal exposures Past Drug Use History: None Reported - Past Family History Mother History Unknown: Yes Family Medical History: Dialysis, Renal Disease Brother(s) History Unknown: Yes Family Medical History: No Reported History Sister(s) History Unknown: Yes Family Medical History: No Reported History Additional Family Medical History / Comment(s): Parkinsons Father Family Medical History: Cancer, CVA/TIA Additional Family Medical History / Comment(s): 3 out of 4 siblings dx. autoimmune disease Medications and Allergies Home Medications Medication Instructions Recorded Confirmed Type Escitalopram [Lexapro] 10 mg PO DAILY@0900 08/27/18 04/20/20 History Pilocarpine HCl [Salagen] 7.5 mg PO TID@0600,1400,2200 09/19/18 04/20/20 History Sennosides/Docusate Sodium [Dok 1 tab PO BID@0900,209909/19/18 04/20/20 History Plus Tablet] Cholecalciferol [Vitamin D3 (25 1,000 unit PO DAILY@89902/14/19 04/20/20 History Mcg = 1000 Iu)] Vit C/E/Zn/Coppr/Lutein/Zeaxan 1 cap PO DAILY@89902/14/19 04/20/20 History [Preservision Areds 2 Softgel] Tolterodine Tartrate [Detrol LA] 4 mg PO DAILY@0602/15/19 04/20/20 History Acetaminophen Tab [Tylenol] 650 mg PO TID@0600,1400,2200 12/12/19 04/20/20 History Albuterol Sulfate [Proair 1 puff INHALATION RT-QID PRN 12/12/19 04/20/20 History Respiclick] Ammonium Lactate Lotion 1 applic TOPICAL HS 12/12/19 04/20/20 History [Lac-Hydrin 12% Lotion] Gabapentin 300 mg PO BID@899,2099 #6 cap 12/12/19 04/20/20 Rx Lansoprazole 30 mg PO DAILY@59912/12/19 04/20/20 History Losartan [Cozaar] 50 mg PO DAILY@89912/12/19 04/20/20 History Magnesium Oxide 400 mg PO BID@00,209912/12/19 04/20/20 History Methyl Salicylate/Menthol 1 patch TRANSDERM DAILY@89912/12/19 04/20/20 History [Salonpas Patch] Metoprolol Succinate [Toprol XL] 25 mg PO HS@209912/12/19 04/20/20 History OLANZapine [ZyPREXA] 7.5 mg PO HS@209912/12/19 04/20/20 History Ondansetron [Zofran] 4 mg PO Q6H PRN 12/12/19 04/20/20 History Propylene Glycol/Peg 400/Pf 1 drop BOTH EYES Q6H 12/12/19 04/20/20 History [Systane 0.3-0.4% Eye Drop] Z-Guard 1 applic TOPICAL Q12H 12/12/19 04/20/20 History cycloSPORINE 0.05% OPHTH SOLN 1 drop BOTH EYES BID@0900,209912/12/19 04/20/20 History [Restasis] oxyCODONE-APAP 7.5-325MG [Percocet 0.5 tab PO Q8H PRN #5 tab 12/12/19 04/20/20 Rx 7.5-325 mg] Fluticasone Propionate [Flovent 1 puff INHALATION RT-BID@0900,209904/20/20 04/20/20 History Hfa 220 mcg] Furosemide [Lasix] 40 mg PO DAILY@0900 04/20/20 04/20/20 History Lactulose [Cephulac] 20 gm PO BID@0900,209904/20/20 04/20/20 History Allergies Allergy/AdvReac Type Severity Reaction Status Date / Time aspirin Allergy Anaphylaxis Verified 04/20/20 16:29 caffeine Allergy CREATES Verified 04/20/20 16:29 TOO MUCH STOMACH ACID celecoxib [From Celebrex] Allergy Rash/Hives Verified 04/20/20 16:29 codeine Allergy Anaphylaxis Verified 04/20/20 16:29 doxycycline Allergy Unknown Verified 04/20/20 16:29 hydrocodone bitartrate Allergy Unknown Verified 04/20/20 16:29 [From [place]] milk Allergy Unknown Verified 04/20/20 16:29 Penicillins Allergy Rash/Hives Verified 04/20/20 16:29 rofecoxib [From Vioxx] Allergy Rash/Hives Verified 04/20/20 16:29 clarithromycin [From Biaxin] AdvReac Nausea Verified 04/20/20 16:29 clindamycin AdvReac Nausea Verified 04/20/20 16:29 levofloxacin [From Levaquin] AdvReac Nausea Verified 04/20/20 16:29 Morpholine Analogues AdvReac Confusion Verified 04/20/20 16:29 ranitidine HCl [From Zantac] AdvReac Rash/Hives Verified 04/20/20 16:29 Surgical - Exam Vital Signs Temp Pulse Resp BP Pulse Ox 97.9 F 81 20 118/62 98 04/20/20 14:37 04/20/20 14:37 04/20/20 14:37 04/20/20 14:37 04/20/20 14:37 - General well developed, well nourished, moderate distress - Eyes PERRL - ENT normal pinna, normal nares - Neck no masses - Respiratory normal expansion - Cardiovascular Rhythm: regular - Abdomen Large parastomal hernia and right abdominal wall. With incarcerated small bowel Abdomen: soft Results - Labs 04/21/20 06:36 04/21/20 06:36 Abnormal Lab Results - Last 24 Hours (Table) 04/20/20 04/20/20 04/20/20 Range/Units 14:57 14:57 14:57 Neutrophils # 8.1 H (1.3-7.7) k/uL Lymphocytes # 0.9 L (1.0-4.8) k/uL Sodium 130 L (137-145) mmol/L Potassium 5.8 H (3.5-5.1) mmol/L Chloride 92 L (98-107) mmol/L Carbon Dioxide (22-30) mmol/L BUN 69 H (7-17) mg/dL Creatinine 1.73 H (0.52-1.04) mg/dL Glucose 113 H (74-99) mg/dL Calcium (8.4-10.2) mg/dL Albumin (3.5-5.0) g/dL Amylase <30 L (30-110) U/L Lipase 11 L (23-300) U/L Urine Appearance Cloudy H (Clear) Urine Protein Trace H (Negative) Urine Nitrite Positive H (Negative) Ur Leukocyte Esterase Large H (Negative) Urine WBC 121 H (0-5) /hpf Urine WBC Clumps Few H (None) /hpf Urine Bacteria Moderate H (None) /hpf Urine Mucus Rare H (None) /hpf Coronavirus (PCR) (Not Detectd) 04/20/20 04/20/20 04/20/20 Range/Units 18:13 19:00 19:00 Neutrophils # 7.8 H (1.3-7.7) k/uL Lymphocytes # 0.9 L (1.0-4.8) k/uL Sodium 133 L (137-145) mmol/L Potassium (3.5-5.1) mmol/L Chloride (98-107) mmol/L Carbon Dioxide (22-30) mmol/L BUN 60 H (7-17) mg/dL Creatinine 1.52 H (0.52-1.04) mg/dL Glucose 103 H (74-99) mg/dL Calcium 8.1 L (8.4-10.2) mg/dL Albumin 3.4 L (3.5-5.0) g/dL Amylase (30-110) U/L Lipase (23-300) U/L Urine Appearance (Clear) Urine Protein (Negative) Urine Nitrite (Negative) Ur Leukocyte Esterase (Negative) Urine WBC (0-5) /hpf Urine WBC Clumps (None) /hpf Urine Bacteria (None) /hpf Urine Mucus (None) /hpf Coronavirus (PCR) Detected A (Not Detectd) 04/21/20 04/21/20 Range/Units 06:36 06:36 Neutrophils # 9.2 H (1.3-7.7) k/uL Lymphocytes # 0.4 L (1.0-4.8) k/uL Sodium 135 L (137-145) mmol/L Potassium (3.5-5.1) mmol/L Chloride (98-107) mmol/L Carbon Dioxide 21 L (22-30) mmol/L BUN 46 H (7-17) mg/dL Creatinine 1.06 H (0.52-1.04) mg/dL Glucose (74-99) mg/dL Calcium (8.4-10.2) mg/dL Albumin 3.4 L (3.5-5.0) g/dL Amylase (30-110) U/L Lipase (23-300) U/L Urine Appearance (Clear) Urine Protein (Negative) Urine Nitrite (Negative) Ur Leukocyte Esterase (Negative) Urine WBC (0-5) /hpf Urine WBC Clumps (None) /hpf Urine Bacteria (None) /hpf Urine Mucus (None) /hpf Coronavirus (PCR) (Not Detectd) Microbiology - Last 24 Hours (Table) 04/20/20 14:57 Urine Culture - Preliminary Urine,Voided Diabetes panel 04/20/20 04/20/20 04/21/20 Range/Units 14:57 19:00 06:36 Sodium 130 L 133 L 135 L (137-145) mmol/L Potassium 5.8 H 4.9 4.6 (3.5-5.1) mmol/L Chloride 92 L 98 102 (98-107) mmol/L Carbon Dioxide 29 23 21 L (22-30) mmol/L BUN 69 H 60 H 46 H (7-17) mg/dL Creatinine 1.73 H 1.52 H 1.06 H (0.52-1.04) mg/dL Glucose 113 H 103 H 88 (74-99) mg/dL Calcium 8.5 8.1 L 8.5 (8.4-10.2) mg/dL AST 29 23 23 (14-36) U/L ALT 20 18 15 (4-34) U/L Alkaline Phosphatase 89 95 87 (38-126) U/L Total Protein 7.0 6.7 6.4 (6.3-8.2) g/dL Albumin 3.6 3.4 L 3.4 L (3.5-5.0) g/dL Calcium panel 04/20/20 04/20/20 04/21/20 Range/Units 14:57 19:00 06:36 Calcium 8.5 8.1 L 8.5 (8.4-10.2) mg/dL Albumin 3.6 3.4 L 3.4 L (3.5-5.0) g/dL Pituitary panel 04/20/20 04/20/20 04/21/20 Range/Units 14:57 19:00 06:36 Sodium 130 L 133 L 135 L (137-145) mmol/L Potassium 5.8 H 4.9 4.6 (3.5-5.1) mmol/L Chloride 92 L 98 102 (98-107) mmol/L Carbon Dioxide 29 23 21 L (22-30) mmol/L BUN 69 H 60 H 46 H (7-17) mg/dL Creatinine 1.73 H 1.52 H 1.06 H (0.52-1.04) mg/dL Glucose 113 H 103 H 88 (74-99) mg/dL Calcium 8.5 8.1 L 8.5 (8.4-10.2) mg/dL Adrenal panel 04/20/20 04/20/20 04/21/20 Range/Units 14:57 19:00 06:36 Sodium 130 L 133 L 135 L (137-145) mmol/L Potassium 5.8 H 4.9 4.6 (3.5-5.1) mmol/L Chloride 92 L 98 102 (98-107) mmol/L Carbon Dioxide 29 23 21 L (22-30) mmol/L BUN 69 H 60 H 46 H (7-17) mg/dL Creatinine 1.73 H 1.52 H 1.06 H (0.52-1.04) mg/dL Glucose 113 H 103 H 88 (74-99) mg/dL Calcium 8.5 8.1 L 8.5 (8.4-10.2) mg/dL Total Bilirubin 0.7 0.4 0.5 (0.2-1.3) mg/dL AST 29 23 23 (14-36) U/L ALT 20 18 15 (4-34) U/L Alkaline Phosphatase 89 95 87 (38-126) U/L Total Protein 7.0 6.7 6.4 (6.3-8.2) g/dL Albumin 3.6 3.4 L 3.4 L (3.5-5.0) g/dL Assessment and Plan Assessment: Incarcerated right abdominal parastomal hernia. Patient will undergo operative repair tomorrow. We will obtain cardiology consult.
--- NOTE | 2020-04-21 11:34 | P.NPCON ---
History of Present Illness - Reason for Consult Consult date: 04/21/20 acute renal failure - Chief Complaint Acute kidney injury - History of Present Illness This is a 89-year-old female seen in consultation because of acute kidney injury. Her creatinine was 1.73 on admission. Her baseline creatinine 0.86 as of 12/12/2019. She was admitted with abdominal pain she has a colostomy with incarcerated hernia around it. She did admit to some nausea vomiting and poor appetite Since hospitalization she has improved. Pain is less but still moderate Her creatinine has improved to 1.06 this morning She is known with a rectal cancer with colostomy Sjogren syndrome, history of lung CA status post surgery nonischemic cardiomyopathy Past Medical History Past Medical History: Asthma, Coronary Artery Disease (CAD), Cancer, Hyperlipidemia, Hypertension, Memory Impairment, Musculoskeletal Disorder, Osteoarthritis (OA), Sleep Apnea/CPAP/BIPAP Additional Past Medical History / Comment(s): Sjogren syndrome, RECTAL CANCER WITH COLOSTOMY , anemia, OVER ACTIVE BLADDER, hx. L4 fracture, BRONCH WASHING WAS POSITIVE FOR KLEBSIELLA PNUEMONAE., BACK PAIN. FREQUENT FALLS. History of Any Multi-Drug Resistant Organisms: ESBL, MRSA Date of last positivie culture/infection: 09/21/18 MRSA; 09/30/19 ESBL E.COLI MDRO Source:: Back-MRSA; Urine-ESBL Past Surgical History: Adenoidectomy, Appendectomy, Back Surgery, Bowel Resection, Breast Surgery, Heart Catheterization, Hysterectomy, Tonsillectomy, Uterine Ablation Additional Past Surgical History / Comment(s): PERMANENT COLOSTOMY. throat surgery removed uvula,L3-L4 two fractured vertebrae, sofi cataracts, kyphoplasty L4, PICCLINE IN MAY FOR ABX(PNE) SINCE REMOVED. PICC LINE PLACEMENT, COLONOSCOPY, EGD, UTI 08/2017 Past Anesthesia/Blood Transfusion Reactions: No Reported Reaction Additional Past Anesthesia/Blood Transfusion Reaction / Comment(s): HX OF BLOOD TRANSFUSION Past Psychological History: No Psychological Hx Reported Additional Psychological History / Comment(s): cared for in the family home by the and children. Retired. No experience. No international travel. No tobacco or alcohol use. No animal exposures Smoking Status: Never smoker Past Alcohol Use History: None Reported Additional Past Alcohol Use History / Comment(s): cared for in the family home by the and children. Retired. No experience. No international travel. No tobacco or alcohol use. No animal exposures Past Drug Use History: None Reported - Past Family History Mother History Unknown: Yes Family Medical History: Dialysis, Renal Disease Brother(s) History Unknown: Yes Family Medical History: No Reported History Sister(s) History Unknown: Yes Family Medical History: No Reported History Additional Family Medical History / Comment(s): Parkinsons Father Family Medical History: Cancer, CVA/TIA Additional Family Medical History / Comment(s): 3 out of 4 siblings dx. autoimmune disease Medications and Allergies Home Medications Medication Instructions Recorded Confirmed Type Escitalopram [Lexapro] 10 mg PO DAILY@0900 08/27/18 04/20/20 History Pilocarpine HCl [Salagen] 7.5 mg PO TID@0600,1400,2200 09/19/18 04/20/20 History Sennosides/Docusate Sodium [Dok 1 tab PO BID@0900,209909/19/18 04/20/20 History Plus Tablet] Cholecalciferol [Vitamin D3 (25 1,000 unit PO DAILY@0900 02/14/19 04/20/20 History Mcg = 1000 Iu)] Vit C/E/Zn/Coppr/Lutein/Zeaxan 1 cap PO DAILY@0900 02/14/19 04/20/20 History [Preservision Areds 2 Softgel] Tolterodine Tartrate [Detrol LA] 4 mg PO DAILY@0600 02/15/19 04/20/20 History Acetaminophen Tab [Tylenol] 650 mg PO TID@0600,1400,2200 12/12/19 04/20/20 History Albuterol Sulfate [Proair 1 puff INHALATION RT-QID PRN 12/12/19 04/20/20 History Respiclick] Ammonium Lactate Lotion 1 applic TOPICAL HS 12/12/19 04/20/20 History [Lac-Hydrin 12% Lotion] Gabapentin 300 mg PO BID@0900,2099 #6 cap 12/12/19 04/20/20 Rx Lansoprazole 30 mg PO DAILY@0600 12/12/19 04/20/20 History Losartan [Cozaar] 50 mg PO DAILY@0900 12/12/19 04/20/20 History Magnesium Oxide 400 mg PO BID@0900,209912/12/19 04/20/20 History Methyl Salicylate/Menthol 1 patch TRANSDERM DAILY@89912/12/19 04/20/20 History [Salonpas Patch] Metoprolol Succinate [Toprol XL] 25 mg PO HS@209912/12/19 04/20/20 History OLANZapine [ZyPREXA] 7.5 mg PO HS@209912/12/19 04/20/20 History Ondansetron [Zofran] 4 mg PO Q6H PRN 12/12/19 04/20/20 History Propylene Glycol/Peg 400/Pf 1 drop BOTH EYES Q6H 12/12/19 04/20/20 History [Systane 0.3-0.4% Eye Drop] Z-Guard 1 applic TOPICAL Q12H 12/12/19 04/20/20 History cycloSPORINE 0.05% OPHTH SOLN 1 drop BOTH EYES BID@0900,209912/12/19 04/20/20 History [Restasis] oxyCODONE-APAP 7.5-325MG [Percocet 0.5 tab PO Q8H PRN #5 tab 12/12/19 04/20/20 Rx 7.5-325 mg] Fluticasone Propionate [Flovent 1 puff INHALATION RT-BID@899,209904/20/20 04/20/20 History Hfa 220 mcg] Furosemide [Lasix] 40 mg PO DAILY@89904/20/20 04/20/20 History Lactulose [Cephulac] 20 gm PO BID@0900,209904/20/20 04/20/20 History Allergies Allergy/AdvReac Type Severity Reaction Status Date / Time aspirin Allergy Anaphylaxis Verified 04/20/20 16:29 caffeine Allergy CREATES Verified 04/20/20 16:29 TOO MUCH STOMACH ACID celecoxib [From Celebrex] Allergy Rash/Hives Verified 04/20/20 16:29 codeine Allergy Anaphylaxis Verified 04/20/20 16:29 doxycycline Allergy Unknown Verified 04/20/20 16:29 hydrocodone bitartrate Allergy Unknown Verified 04/20/20 16:29 [From [place]] milk Allergy Unknown Verified 04/20/20 16:29 Penicillins Allergy Rash/Hives Verified 04/20/20 16:29 rofecoxib [From Vioxx] Allergy Rash/Hives Verified 04/20/20 16:29 clarithromycin [From Biaxin] AdvReac Nausea Verified 04/20/20 16:29 clindamycin AdvReac Nausea Verified 04/20/20 16:29 levofloxacin [From Levaquin] AdvReac Nausea Verified 04/20/20 16:29 Morpholine Analogues AdvReac Confusion Verified 04/20/20 16:29 ranitidine HCl [From Zantac] AdvReac Rash/Hives Verified 04/20/20 16:29 Physical Exam Vitals: Vital Signs Temp Pulse Pulse Resp BP BP Pulse Ox 04/21/20 08:00 98.7 F 96 20 169/76 95 04/21/20 03:36 98.5 F 89 18 162/72 93 L 04/21/20 02:00 18 04/20/20 23:11 98.2 F 94 18 157/77 93 L 04/20/20 21:30 98.6 F 89 18 148/72 97 04/20/20 20:31 98.3 F 84 22 152/74 96 04/20/20 18:13 98.4 F 84 20 142/86 97 04/20/20 16:10 81 22 138/75 97 04/20/20 14:37 97.9 F 81 20 118/62 98 Intake and Output 04/20/20 04/21/20 04/21/20 22:59 06:59 14:59 Other: Voiding Method Incontinent Incontinent Diaper Incontinent # Voids 1 1 Weight 65.771 kg 63 kg Examination awake alert oriented 3. Frail and somewhat cachectic looking HEENT exam no JVP neck is supple no facial asymmetry Lungs are clear to auscultation fair air entry but occasional crackles possibly hurt Heart sounds are unremarkable for any murmur rub gallop Abdomen is soft with a large ventral hernia through which the colostomy is present Extreme exam was no edema Neurologically awake alert oriented but formerly week Results - Lab Results Most recent lab results Calcium 8.5 mg/dL (8.4-10.2) 04/21/20 06:36 04/21/20 06:36 04/21/20 06:36 Assessment and Plan Plan: Impression 1. Acute kidney injury secondary to volume depletion from third spacing of fluid from an incarcerated hernia and possibly bowel obstruction, also had nausea vomiting 2. Hyponatremia secondary to acute kidney injury. 3. Hyperkalemia secondary acute kidney injury. 4. History of nonischemic cardiomyopathy 5. History of CA lung surgery and rectal CA with low anterior resection and colostomy Recommendations 1. Maintain IV fluids but reduce the fluid to 70 an hour because of her complaining of shortness of breath. 2. Watch labs, and begin output and vital signs
--- NOTE | 2020-04-21 12:02 | P.CRDCN ---
History of Present Illness Consult date: 04/21/20 Requesting physician: Shimon Garcia Reason for Consult (text): preop clearance Chief complaint: Abdominal pain History of present illness: This is a pleasant 85 stroke female who follows with Dr. Pulido in the office. She has a past medical history significant for nonischemic cardio m yopathy, hypertension, obstructive sleep apnea, peripheral vascular disease, valvular heart disease, prior history of lung cancer post resection, history of Klebsiella pneumoniae ESBL urinary tract infection, memory impairment, rectal cancer status post low anterior resection with colostomy placement, and she has had her stoma removed and replaced. She presents to the hospital on this occasion with symptoms of abdominal pain as well as constipation. She resides at [facility] on the leg. Patient's overall appetite has been poor as well. On arrival here patient was found to have acute kidney injury as well as hyperkalemia, she underwent a CT of the abdomen and pelvis without contrast that revealed a large right sided abdominal wall ventral hernia which contains multiple loops of the small bowel measuring about 6 x 12 and the opening 5 x 5 cm, the small bowel measures up to 3.5 cm in diameter and there was incarcerated and mildly dilated loops of small bowel consistent with partial mechanical obstruction related to the hernia. Patient had been admitted to the hospital, was initiated on IV fluids as well as IV antibiotics. The patient was seen in consultation by Dr. Calix, he has requested cardiology to see the patient as he is anticipating surgery for her tomorrow. Her blood pressure this morning 168/70, heart rate in the 80s to 90s. White blood cell count 10.6, hemoglobin 12.2, platelet count 228. Sodium 135, potassium 4.6, BUN 46, creatinine 1.0 this morning, 1.7 on arrival. Patient is covid positive. At the time of my examination she is complaining of some mild nausea. Past Medical History Past Medical History: Asthma, Coronary Artery Disease (CAD), Cancer, Hyperlipidemia, Hypertension, Memory Impairment, Musculoskeletal Disorder, Osteoarthritis (OA), Sleep Apnea/CPAP/BIPAP Additional Past Medical History / Comment(s): Sjogren syndrome, RECTAL CANCER WITH COLOSTOMY , anemia, OVER ACTIVE BLADDER, hx. L4 fracture, BRONCH WASHING WAS POSITIVE FOR KLEBSIELLA PNUEMONAE., BACK PAIN. FREQUENT FALLS. History of Any Multi-Drug Resistant Organisms: ESBL, MRSA Date of last positivie culture/infection: 7/2/19 MRSA; 09/30/19 ESBL E.COLI MDRO Source:: Back-MRSA; Urine-ESBL Past Surgical History: Adenoidectomy, Appendectomy, Back Surgery, Bowel Resection, Breast Surgery, Heart Catheterization, Hysterectomy, Tonsillectomy, Uterine Ablation Additional Past Surgical History / Comment(s): PERMANENT COLOSTOMY. throat surgery removed uvula,L3-L4 two fractured vertebrae, sofi cataracts, kyphoplasty L4, PICCLINE IN MAY FOR ABX(PNE) SINCE REMOVED. PICC LINE PLACEMENT, COLONOSCOPY, EGD, UTI 08/2017 Past Anesthesia/Blood Transfusion Reactions: No Reported Reaction Additional Past Anesthesia/Blood Transfusion Reaction / Comment(s): HX OF BLOOD TRANSFUSION Past Psychological History: No Psychological Hx Reported Additional Psychological History / Comment(s): cared for in the family home by the and children. Retired. No experience. No inte rnational travel. No tobacco or alcohol use. No animal exposures Smoking Status: Never smoker Past Alcohol Use History: None Reported Additional Past Alcohol Use History / Comment(s): cared for in the family home by the and children. Retired. No experience. No international travel. No tobacco or alcohol use. No animal exposures Past Drug Use History: None Reported - Past Family History Mother History Unknown: Yes Family Medical History: Dialysis, Renal Disease Brother(s) History Unknown: Yes Family Medical History: No Reported History Sister(s) History Unknown: Yes Family Medical History: No Reported History Additional Family Medical History / Comment(s): Parkinsons Father Family Medical History: Cancer, CVA/TIA Additional Family Medical History / Comment(s): 3 out of 4 siblings dx. autoimmune disease Medications and Allergies Home Medications Medication Instructions Recorded Confirmed Type Escitalopram [Lexapro] 10 mg PO DAILY@0900 08/27/18 04/20/20 History Pilocarpine HCl [Salagen] 7.5 mg PO TID@0600,1400,2200 09/19/18 04/20/20 History Sennosides/Docusate Sodium [Dok 1 tab PO BID@0900,2100 09/19/18 04/20/20 History Plus Tablet] Cholecalciferol [Vitamin D3 (25 1,000 unit PO DAILY@0900 02/14/19 04/20/20 History Mcg = 1000 Iu)] Vit C/E/Zn/Coppr/Lutein/Zeaxan 1 cap PO DAILY@0900 02/14/19 04/20/20 History [Preservision Areds 2 Softgel] Tolterodine Tartrate [Detrol LA] 4 mg PO DAILY@0600 02/15/19 04/20/20 History Acetaminophen Tab [Tylenol] 650 mg PO TID@0600,1400,2200 12/12/19 04/20/20 History Albuterol Sulfate [Proair 1 puff INHALATION RT-QID PRN 12/12/19 04/20/20 History Respiclick] Ammonium Lactate Lotion 1 applic TOPICAL HS 12/12/19 04/20/20 History [Lac-Hydrin 12% Lotion] Gabapentin 300 mg PO BID@0900,2100 #6 cap 12/12/19 04/20/20 Rx Lansoprazole 30 mg PO DAILY@0600 12/12/19 04/20/20 History Losartan [Cozaar] 50 mg PO DAILY@0912/12/19 04/20/20 History Magnesium Oxide 400 mg PO BID@0900,209912/12/19 04/20/20 History Methyl Salicylate/Menthol 1 patch TRANSDERM DAILY@89912/12/19 04/20/20 History [Salonpas Patch] Metoprolol Succinate [Toprol XL] 25 mg PO HS@209912/12/19 04/20/20 History OLANZapine [ZyPREXA] 7.5 mg PO HS@209912/12/19 04/20/20 History Ondansetron [Zofran] 4 mg PO Q6H PRN 12/12/19 04/20/20 History Propylene Glycol/Peg 400/Pf 1 drop BOTH EYES Q6H 12/12/19 04/20/20 History [Systane 0.3-0.4% Eye Drop] Z-Guard 1 applic TOPICAL Q12H 12/12/19 04/20/20 History cycloSPORINE 0.05% OPHTH SOLN 1 drop BOTH EYES BID@0900,2100 12/12/19 04/20/20 History [Restasis] oxyCODONE-APAP 7.5-325MG [Percocet 0.5 tab PO Q8H PRN #5 tab 12/12/19 04/20/20 Rx 7.5-325 mg] Fluticasone Propionate [Flovent 1 puff INHALATION RT-BID@0900,2100 04/20/20 04/20/20 History Hfa 220 mcg] Furosemide [Lasix] 40 mg PO DAILY@0900 04/20/20 04/20/20 History Lactulose [Cephulac] 20 gm PO BID@0900,2100 04/20/20 04/20/20 History Allergies Allergy/AdvReac Type Severity Reaction Status Date / Time aspirin Allergy Anaphylaxis Verified 04/20/20 16:29 caffeine Allergy CREATES Verified 04/20/20 16:29 TOO MUCH STOMACH ACID celecoxib [From Celebrex] Allergy Rash/Hives Verified 04/20/20 16:29 codeine Allergy Anaphylaxis Verified 04/20/20 16:29 doxycycline Allergy Unknown Verified 04/20/20 16:29 hydrocodone bitartrate Allergy Unknown Verified 04/20/20 16:29 [From [place]] milk Allergy Unknown Verified 04/20/20 16:29 Penicillins Allergy Rash/Hives Verified 04/20/20 16:29 rofecoxib [From Vioxx] Allergy Rash/Hives Verified 04/20/20 16:29 clarithromycin [From Biaxin] AdvReac Nausea Verified 04/20/20 16:29 clindamycin AdvReac Nausea Verified 04/20/20 16:29 levofloxacin [From Levaquin] AdvReac Nausea Verified 04/20/20 16:29 Morpholine Analogues AdvReac Confusion Verified 04/20/20 16:29 ranitidine HCl [From Zantac] AdvReac Rash/Hives Verified 04/20/20 16:29 Physical Exam Vitals: Vital Signs Temp Pulse Pulse Resp BP BP Pulse Ox 04/21/20 08:00 98.7 F 96 20 169/76 95 04/21/20 03:36 98.5 F 89 18 162/72 93 L 04/21/20 02:00 18 04/20/20 23:11 98.2 F 94 18 157/77 93 L 04/20/20 21:30 98.6 F 89 18 148/72 97 04/20/20 20:31 98.3 F 84 22 152/74 96 04/20/20 18:13 98.4 F 84 20 142/86 97 04/20/20 16:10 81 22 138/75 97 04/20/20 14:37 97.9 F 81 20 118/62 98 Intake and Output 04/20/20 04/21/20 04/21/20 22:59 06:59 14:59 Other: Voiding Method Incontinent Incontinent Diaper Incontinent # Voids 1 1 Weight 65.771 kg 63 kg Physical examination HEENT: Head is atraumatic, normocephalic, pupils were equal round reactive to light and recommendation, extraocular muscle movement were intact, sclera nonicteric conjunctiva are pale, mucous membranes of mouth are somewhat dry. Neck: Supple, no JVD, decreased carotid upstroke bilaterally. Chest: There is significant kyphosis present, decreased breath sounds at the bases, few rhonchi, no expiratory wheezes, no chest wall tenderness, no intercostal retractions. Heart: First heart sound is depressed, second heart sounds normal, there is systolic ejection murmur 2/6 located in the left border. Abdomen: Soft and distended moderate tenderness of the right lower quadrant, there is peristomal hernia with significant ventral hernia in that area, associated with significant tenderness to palpation, positive for guarding, positive bowel sounds. Stoma bag has a moderate amount of stool . Extremities: There is trace edema, no calf tenderness, dorsalis pedis +1 bilaterally. Neurologic examination: Patient is stuporous opens her eyes in response to verbal stimuli, muscle power were 3 out of 5 in upper extremities and 2 out of 5 in bilateral lower extremities, deep tendon reflexes were depressed bilaterally. Results 04/21/20 06:36 04/21/20 06:36 Cardiac Enzymes 04/20/20 04/20/20 04/21/20 Range/Units 14:57 19:00 06:36 AST 29 23 23 (14-36) U/L Coagulation 04/20/20 Range/Units 14:57 PT 10.2 (9.0-12.0) sec APTT 24.4 (22.0-30.0) sec CBC 04/20/20 04/20/20 04/21/20 Range/Units 14:57 19:00 06:36 WBC 10.2 9.9 10.6 (3.8-10.6) k/uL RBC 3.89 3.90 3.85 (3.80-5.40) m/uL Hgb 12.4 12.5 12.2 (11.4-16.0) gm/dL Hct 36.7 37.3 36.6 (34.0-46.0) % Plt Count 232 207 228 (150-450) k/uL Comprehensive Metabolic Panel 04/20/20 04/20/20 04/21/20 Range/Units 14:57 19:00 06:36 Sodium 130 L 133 L 135 L (137-145) mmol/L Potassium 5.8 H 4.9 4.6 (3.5-5.1) mmol/L Chloride 92 L 98 102 (98-107) mmol/L Carbon Dioxide 29 23 21 L (22-30) mmol/L BUN 69 H 60 H 46 H (7-17) mg/dL Creatinine 1.73 H 1.52 H 1.06 H (0.52-1.04) mg/dL Glucose 113 H 103 H 88 (74-99) mg/dL Calcium 8.5 8.1 L 8.5 (8.4-10.2) mg/dL AST 29 23 23 (14-36) U/L ALT 20 18 15 (4-34) U/L Alkaline Phosphatase 89 95 87 (38-126) U/L Total Protein 7.0 6.7 6.4 (6.3-8.2) g/dL Albumin 3.6 3.4 L 3.4 L (3.5-5.0) g/dL Current Medications Generic Name Dose Route Start Last Admin Trade Name Freq PRN Reason Stop Dose Admin Cyclosporine 1 drops 04/20/20 21:00 04/21/20 08:28 Cyclosporine 0.05% Ophth 0.4 Ml Droperette BOTH EYES Not Given BID@0900,2100 LORNA Enoxaparin Sodium 30 mg 04/21/20 09:00 04/21/20 08:28 Enoxaparin 30 Mg/0.3 Ml Syringe SQ 30 mg DAILY LORNA Administration Fluticasone Propionate 1 puff 04/20/20 21:00 04/21/20 09:14 Fluticasone 220 Mcg Inhaler INHALATION Not Given RT-BID@0900,2100 ON LICENSE OF [facility] Sodium Chloride 1,000 mls @ 125 mls/hr 04/20/20 16:00 04/21/20 08:28 Saline 0.9% IV Not Given .Q8H ON LICENSE OF [facility] Metronidazole 500 mg/ IV 100 mls @ 100 mls/hr 04/21/20 00:00 04/21/20 08:28 Solution IVPB 100 mls/hr Q8HR LORNA Administration Ceftriaxone Sodium 2 gm/ 50 mls @ 100 mls/hr 04/21/20 09:00 04/21/20 08:28 Sodium Chloride IVPB 100 mls/hr Q24HR LORNA Administration Sodium Chloride 1,000 mls @ 75 mls/hr 04/21/20 11:45 Saline 0.9% IV .[id number] ON LICENSE OF [facility] Lactic Acid 1 applic 04/20/20 21:00 04/20/20 22:04 Ammonium Lactate 12% Lotion 225 Gm Btl TOPICAL Not Given HS ON LICENSE OF [facility] Metoprolol Succinate 25 mg 04/20/20 21:00 04/20/20 22:04 Metoprolol Succinate (Er) 25 Mg Tab.Er.24h PO Not Given HS@2100 ON LICENSE OF [facility] Naloxone HCl 0.2 mg 04/20/20 17:41 Naloxone 0.4 Mg/Ml 1 Ml Vial IV Q2M PRN Opioid Reversal Ondansetron HCl 4 mg 04/20/20 17:57 Ondansetron 4 Mg/2 Ml Vial IVP Q6H PRN Nausea And Vomiting Oxycodone/Acetaminophen 0.5 each 04/20/20 22:36 04/20/20 22:49 Oxycodone-Apap 7.5-325mg 1 Each Tab PO 0.5 each Q8HR PRN Administration Pain Pantoprazole Sodium 40 mg 04/21/20 09:00 04/21/20 08:27 Pantoprazole 40 Mg/10 Ml Vial IVP 40 mg DAILY LORNA Administration Intake and Output 04/20/20 04/21/20 04/21/20 22:59 06:59 14:59 Other: Voiding Method Incontinent Incontinent Diaper Incontinent # Voids 1 1 Weight 65.771 kg 63 kg 04/21/20 06:36 04/21/20 06:36 EKG Interpretations (text) No EKG performed Assessment and Plan Plan: Assessment and plan 1. Large right lateral abdominal wall hernia with incarceration. Anticipating possible surgery tomorrow 2. Acute kidney injury due to poor oral intake of fluid and acute tubular necrosis. 3. Hyperkalemia likely related to acute kidney injury. 4. Metabolic encephalopathy secondary to acute kidney injury as well as incarcerated large ventral hernia. 5. Chronic kidney failure CKD stage II currently with acute kidney injury 6. CAD , non-ischemic cardiomyopathy and chronic diastolic heart failure with ejection fraction of 50%. 7. Hypertension and hypertensive cardiovascular disease. 8. Sjogren syndrome. 9. Anemia of chronic medical illnesses. 10. Chronic pain syndrome. 11. Overactive bladder. 12. 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 13. History of rectal cancer post-low anterior resection with colostomy placement . 14. Obstructive sleep apnea Plan We will obtain an EKG. We will also obtain an echocardiogram with Doppler stud y. Echo performed in November 2019 revealed a normal left ventricular systolic function. Patient denies any recent angina. Continue beta gume. Further recommendations to follow. DNP note has been reviewed, I agree with a documented findings and plan of care. Patient was seen and examined.
--- NOTE | 2020-04-21 14:21 | P.PN ---
Subjective Progress Note Date: 04/21/20 This is an 85-year-old female patient of Dr. Garcia and Dr. Pulido with past medical history of asthma, CAD with ischemic cardiomyopathy, previous history of lung cancer post resection who is known to have severe lower back pain, history of Klebsiella pneumoniae ESBL urinary tract infection, memory impairment, rectal cancer post low anterior resection with colostomy placement and she has had her stoma moved from one side to the other times to with significant peristomal hernia, patient developed to have a significant abdominal pain as well as constipation over the last few days at [facility] at that time she was given a Dulcolax suppository through the stoma and she was started on lactulose 30 g orally twice every day patient has been complaining of increased abdominal pain and distention not able to have a good BM through the stoma, an x-ray was done over there and that showed nonobstructive gas pattern with significant stool buildup, patient today was having increased amount of pain associated with nausea and not able to eat or drink she was dehydrated as well has not been eating much over the last few days, she was directed to go to the emergency department at [facility] where she was found to have an acute kidney injury as well a hyperkalemia, patient underwent CT abdomen and pelvis without contrast that showed a large right side abdominal wall ventral hernia that contains multiple loops of the small bowel hernia measures about 612 cm the opening is 5.5 cm the small bowel measures up to 3.5 cm in diameter there was incarcerated in and some mildly dilated loops of small bowel consistent with partial mechanical obstruction related to the hernia, patient was started on IV fluid as well as IV antibiotic, and surgical consultation was obtained from and had a long conversation with the emergency room physician on the complexity of the case and if the patient is not a candidate for any surgical intervention at [facility] she will need to be transferred to [facility], this was discussed with her over the phone. 04/21: Patient sitting up in bed in no apparent distress, she appears to be a bit short of breath, her IV fluids were decreased to 75 mL an hour, we'll monitor her input and output and daily weight, she was seen in consultation by cardiology in preparation for surgical intervention will be planned for tomorrow morning, I spoke general surgery and they feel that the patient can the served here for a better quality of life, and there is no need for the patient be transferred to a tertiary care center, cardiology consultation was obtained, echocardiogram will be done, EKG was done also continue beta gume in the form of metoprolol 25 mg orally twice every day, monitor the patient very closely at this time hold off ANGELICA inhibitor due to her kidney function, nephrology seen the patient as well and she seems to be doing better. Objective - Vital Signs Vital signs: Vital Signs Temp 98.7 F 04/21/20 08:00 Pulse 101 H 04/21/20 12:00 Resp 20 04/21/20 12:00 BP 173/74 04/21/20 12:00 Pulse Ox 95 04/21/20 12:00 Intake & Output 04/20/20 04/21/20 04/21/20 18:59 06:59 18:59 Weight 65.771 kg 63 kg Other: Voiding Method Incontinent Diaper Incontinent # Voids 1 1 - Exam Review of Systems Constitutional: Reports anorexia, Reports fatigue, Reports lethargy, Reports malaise, Reports weakness, Reports weight loss Eyes: denies blurred vision, denies bulging eye, denies decreased vision Ears: bilateral: decreased hearing Ears, nose, mouth and throat: Denies dysphagia, Denies neck lump, Denies sore throat Cardiovascular: Denies chest pain, Denies decreased exercise tolerance, Denies dyspnea on exertion, Denies lightheadedness, Denies rapid heart beat, Denies shortness of breath, Denies syncope Respiratory: Denies congestion, Denies cough with sputum, Denies home oxygen, Denies sleep apnea, Denies snoring, Denies wheezing Gastrointestinal: Reports abdominal pain, Reports bloating, Reports constipation, Reports early satiety, Reports loss of appetite, Reports nausea, Reports vomiting Genitourinary: Denies dysuria, Denies nocturia Menstruation: Reports postmenopausal Musculoskeletal: Reports atrophy, Reports frequent falls, Reports gait dysfunction, Reports loss of height, Reports low back pain, Reports muscle weakness Musculoskeletal: absent: ankle pain, ankle stiffness, ankle swelling, elbow pain, elbow stiffness, elbow swelling, foot pain, foot stiffness, foot swelling, hand pain, hand stiffness, hand swelling, hip pain, hip stiffness, hip swelling, knee pain, knee stiffness, knee swelling, shoulder pain, shoulder stiffness, shoulder swelling, wrist pain, wrist stiffness, wrist swelling Integumentary: Denies pruritus, Denies rash Neurological: Reports balance difficulties, Reports gait dysfunction, Reports weakness Psychiatric: Denies anxiety, Denies depression Physical examination HEENT: Head is atraumatic, normocephalic, pupils were equal round reactive to light and recommendation, extraocular muscle movement were intact, sclera nonicteric conjunctiva are pale, mucous membranes of mouth are somewhat dry. Neck: Supple, no JVD, decreased carotid upstroke bilaterally. Chest: There is significant kyphosis present, decreased breath sounds at the bases, few rhonchi, no expiratory wheezes, no chest wall tenderness, no intercostal retractions. Heart: First heart sound is depressed, second heart sounds normal, there is systolic ejection murmur 2/6 located in the left border. Abdomen: Soft and distended moderate tenderness of the right lower quadrant, there is peristomal hernia with significant ventral hernia in that area, associated with significant tenderness to palpation, positive for guarding, positive bowel sounds. Stoma bag is empty. Extremities: There is trace edema, no calf tenderness, dorsalis pedis +1 bilaterally. Neurologic examination: Patient is awake alert and oriented 2, cranial nerves II-12 appear grossly intact, muscle power were 3 out of 5 in upper extremities and 2 out of 5 in bilateral lower extremities, deep tendon reflexes were depressed bilaterally. - Labs CBC & Chem 7: 04/21/20 06:36 04/21/20 06:36 Labs: Abnormal Lab Results - Last 24 Hours (Table) 04/20/20 04/20/20 04/20/20 Range/Units 14:57 14:57 14:57 Neutrophils # 8.1 H (1.3-7.7) k/uL Lymphocytes # 0.9 L (1.0-4.8) k/uL Sodium 130 L (137-145) mmol/L Potassium 5.8 H (3.5-5.1) mmol/L Chloride 92 L (98-107) mmol/L Carbon Dioxide (22-30) mmol/L BUN 69 H (7-17) mg/dL Creatinine 1.73 H (0.52-1.04) mg/dL Glucose 113 H (74-99) mg/dL Calcium (8.4-10.2) mg/dL Albumin (3.5-5.0) g/dL Amylase <30 L (30-110) U/L Lipase 11 L (23-300) U/L Urine Appearance Cloudy H (Clear) Urine Protein Trace H (Negative) Urine Nitrite Positive H (Negative) Ur Leukocyte Esterase Large H (Negative) Urine WBC 121 H (0-5) /hpf Urine WBC Clumps Few H (None) /hpf Urine Bacteria Moderate H (None) /hpf Urine Mucus Rare H (None) /hpf Coronavirus (PCR) (Not Detectd) 04/20/20 04/20/20 04/20/20 Range/Units 18:13 19:00 19:00 Neutrophils # 7.8 H (1.3-7.7) k/uL Lymphocytes # 0.9 L (1.0-4.8) k/uL Sodium 133 L (137-145) mmol/L Potassium (3.5-5.1) mmol/L Chloride (98-107) mmol/L Carbon Dioxide (22-30) mmol/L BUN 60 H (7-17) mg/dL Creatinine 1.52 H (0.52-1.04) mg/dL Glucose 103 H (74-99) mg/dL Calcium 8.1 L (8.4-10.2) mg/dL Albumin 3.4 L (3.5-5.0) g/dL Amylase (30-110) U/L Lipase (23-300) U/L Urine Appearance (Clear) Urine Protein (Negative) Urine Nitrite (Negative) Ur Leukocyte Esterase (Negative) Urine WBC (0-5) /hpf Urine WBC Clumps (None) /hpf Urine Bacteria (None) /hpf Urine Mucus (None) /hpf Coronavirus (PCR) Detected A (Not Detectd) 04/21/20 04/21/20 Range/Units 06:36 06:36 Neutrophils # 9.2 H (1.3-7.7) k/uL Lymphocytes # 0.4 L (1.0-4.8) k/uL Sodium 135 L (137-145) mmol/L Potassium (3.5-5.1) mmol/L Chloride (98-107) mmol/L Carbon Dioxide 21 L (22-30) mmol/L BUN 46 H (7-17) mg/dL Creatinine 1.06 H (0.52-1.04) mg/dL Glucose (74-99) mg/dL Calcium (8.4-10.2) mg/dL Albumin 3.4 L (3.5-5.0) g/dL Amylase (30-110) U/L Lipase (23-300) U/L Urine Appearance (Clear) Urine Protein (Negative) Urine Nitrite (Negative) Ur Leukocyte Esterase (Negative) Urine WBC (0-5) /hpf Urine WBC Clumps (None) /hpf Urine Bacteria (None) /hpf Urine Mucus (None) /hpf Coronavirus (PCR) (Not Detectd) Microbiology - Last 24 Hours (Table) 04/20/20 14:57 Urine Culture - Preliminary Urine,Voided Assessment and Plan Assessment: Assessment and plan: 1. Large right lateral abdominal wall hernia with incarceration. Continue the patient on IV fluid in the form of normal saline at 75 mL an hour, monitor input and output and daily weight, pain control, surgery consultation to see the patient, this is a high-risk patient and I had a long conversation with the general surgery staff here in the seems pretty comfortable that they can handle the patient here without transfer her to a tertiary care center., we'll continue the patient on IV antibiotic Rocephin 1 g IV piggyback every 24 hours, metronidazole 500 mg IV piggyback every 8 hours, continue current pain management, monitor the patient respiratory status. 2. Acute kidney injury due to poor oral intake of fluid and acute tubular necrosis. Continue IV fluid resuscitation normal saline 75 mL an hour, monitor input and output and daily weight, check the patient CMP tomorrow morning to 3. Hyperkalemia likely related to acute kidney injury. Continue IV fluid resuscitation and repeat her potassium level in the next few hours. 4. Metabolic encephalopathy secondary to acute kidney injury as well as incarcerated large ventral hernia. Continue IV fluid, continue IV antibiotic, monitor the patient very closely. Much better 5. Chronic kidney failure CKD stage II currently with acute kidney injury continue IV fluid resuscitation repeat CMP tomorrow morning. 6. CAD and non-ischemic cardiomyopathy and chronic diastolic heart failure with ejection fraction of 50%. We will maintain the patient on metoprolol 7. Hypertension and hypertensive cardiovascular disease. Continue metoprolol, hold lisinopril for now. 8. Sjogren syndrome. We'll hold off [place] 9. Anemia of chronic medical illnesses. Continue to monitor the patient's CBC over the next 24 hours. 10. Chronic pain syndrome. We will hold off oral medication start the patient on IV pain management. 11. Overactive bladder. Discontinue Detrol. 12. 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 Appears to be at baseline. 13. History of rectal cancer post-low anterior resection with colostomy placement . 14. DVT prophylaxis. Start the patient on Lovenox 30 mg subcutaneously every 24 hours. 15. GI prophylaxis. Protonix 40 mg IV push every 24 hours. 16. Recurrent depression. Hold off Zyprexa and Lexapro for now. 17. Guarded prognosis..
[2020-04-21] MEDS: oxyCODONE-APAP 7.5-325MG 1 EACH TAB PO PRN (19:43)
[2020-04-21] MEDS: METOPROLOL SUCCINATE (ER) 25 MG TAB.ER.24H PO SCH (19:43)
[2020-04-21] MEDS: IPRATROPIUM-ALBUTEROL 3 ML NEB INHALATION PRN (19:44)
[2020-04-21] MEDS: BUDESONIDE 0.5 MG/2 ML NEBU INHALATION SCH (19:44)
[2020-04-21] MEDS: AMMONIUM LACTATE 12% LOTION 225 GM BTL TOPICAL SCH (19:44)
[2020-04-22] MEDS: SODIUM CHLORIDE 0.9% 1,000 ML IV SCH ×2 (05:44→16:46)
[2020-04-22] MEDS: BUDESONIDE 0.5 MG/2 ML NEBU INHALATION SCH ×3 (07:46→19:12)
[2020-04-22] MEDS: IPRATROPIUM-ALBUTEROL 3 ML NEB INHALATION PRN (07:46)
[2020-04-22] MEDS: FLUTICASONE 220 MCG INHALER INHALATION SCH ×2 (07:47→08:00)
[2020-04-22] MEDS ORDERED: FUROSEMIDE 10 MG/ML 4 ML VIAL IV STA (07:51)
[2020-04-22] MEDS: metroNIDAZOLE-NS PMX 500 MG in SALINE 1 100ML.BAG IVPB SCH ×2 (08:05→17:38)
[2020-04-22] MEDS: PANTOPRAZOLE 40 MG/10 ML VIAL IVP SCH (08:05)
[2020-04-22] MEDS: cycloSPORINE 0.05% OPHTH 0.4 ML DROPERETTE BOTH EYES SCH ×2 (08:05→20:28)
[2020-04-22] MEDS: ENOXAPARIN 30 MG/0.3 ML SYRINGE SQ SCH (10:15)
--- NOTE | 2020-04-22 10:36 | P.PN ---
Subjective Progress Note Date: 04/22/20 This is a pleasant 85 stroke female who follows with Dr. Pulido in the office. She has a past medical history significant for nonischemic cardio myopathy, hypertension, obstructive sleep apnea, peripheral vascular disease, valvular heart disease, prior history of lung cancer post resection, history of Klebsiella pneumoniae ESBL urinary tract infection, memory impairment, rectal cancer status post low anterior resection with colostomy placement, and she has had her stoma removed and replaced. She presents to the hospital on this occasion with symptoms of abdominal pain as well as constipation. She resides at [facility] on the [facility]. Patient's overall appetite has been poor as well. On arrival here patient was found to have acute kidney injury as well as hyperkalemia, she underwent a CT of the abdomen and pelvis without contrast that revealed a large right sided abdominal wall ventral hernia which contains multiple loops of the small bowel measuring about 6 x 12 and the opening 5 x 5 cm, the small bowel measures up to 3.5 cm in diameter and there was incarcerated and mildly dilated loops of small bowel consistent with partial mechanical obstruction related to the hernia. Patient had been admitted to the hospital, was initiated on IV fluids as well as IV antibiotics. The patient was seen in consultation by Dr. Calix, he has requested cardiology to see the patient as he is anticipating surgery for her tomorrow. Her blood pressure this morning 168/70, heart rate in the 80s to 90s. White blood cell count 10.6, hemoglobin 12.2, platelet count 228. Sodium 135, potassium 4.6, BUN 46, creatinine 1.0 this morning, 1.7 on arrival. Patient is covid positive. At the time of my examination she is complaining of some mild nausea. 04/22/2020 patient seen and examined this morning, abdomen is much softer today, denies any shortness of breath but does appear to be more short of breath today. She is also a mildly lethargic this morning arouses when you speak with her. Her echocardiogram with Doppler study has been performed but is yet pending. Blood pressure 164/74 with a heart rate in the 90s, 94% on room air. White blood cell count 10.6, hemoglobin 12.2, platelet count 228. Sodium 135, potassium 4.6, BUN 46, creatinine 1.0. Objective - Vital Signs Vital signs: Vital Signs Temp 98.5 F 04/22/20 08:00 Pulse 99 04/22/20 08:00 Resp 20 04/22/20 08:00 BP 187/88 04/22/20 08:00 Pulse Ox 98 04/22/20 08:00 Intake & Output 04/21/20 04/22/20 04/22/20 18:59 06:59 18:59 Other: Voiding Method Diaper Diaper Diaper Incontinent Incontinent Incontinent # Voids 0 1 - Exam Physical examination HEENT: Head is atraumatic, normocephalic, pupils were equal round reactive to light and recommendation, extraocular muscle movement were intact, sclera nonicteric conjunctiva are pale, mucous membranes of mouth are somewhat dry. Neck: Supple, no JVD, decreased carotid upstroke bilaterally. Chest: There is significant kyphosis present, decreased breath sounds at the bases, few rhonchi, scattered coarse wheezes, no chest wall tenderness, no intercostal retractions. Heart: First heart sound is depressed, second heart sounds normal, there is systolic ejection murmur 2/6 located in the left border. Abdomen: Soft with mild tenderness of the right lower quadrant, there is peristomal hernia with significant ventral hernia in that area, associated with mild tenderness to palpation, positive bowel sounds. Stoma bag has a moderate amount of stool . Extremities: There is trace edema, no calf tenderness, dorsalis pedis +1 bilaterally. Neurologic examination: Patient is stuporous opens her eyes in response to verbal stimuli, muscle power were 3 out of 5 in upper extremities and 2 out of 5 in bilateral lower extremities, deep tendon reflexes were depressed bilaterally. - Labs CBC & Chem 7: 04/21/20 06:36 04/21/20 06:36 Labs: Microbiology - Last 24 Hours (Table) 04/20/20 14:57 Urine Culture - Preliminary Urine,Voided Gram Neg Bacilli Assessment and Plan Plan: Assessment and plan 1. Large right lateral abdominal wall hernia with incarceration. Anticipating possible surgery tomorrow 2. Acute kidney injury due to poor oral intake of fluid and acute tubular necrosis. 3. Hyperkalemia likely related to acute kidney injury. 4. Metabolic encephalopathy secondary to acute kidney injury as well as incarcerated large ventral hernia. 5. Chronic kidney failure CKD stage II currently with acute kidney injury 6. CAD , non-ischemic cardiomyopathy and chronic diastolic heart failure with ejection fraction of 50%. 7. Hypertension and hypertensive cardiovascular disease. 8. Sjogren syndrome. 9. Anemia of chronic medical illnesses. 10. Chronic pain syndrome. 11. Overactive bladder. 12. 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 13. History of rectal cancer post-low anterior resection with colostomy placement . 14. Obstructive sleep apnea Plan we will review the patient's echocardiogram with Doppler study. Obtain a chest x-ray this morning. Further recommendations to follow. DNP note has been reviewed, I agree with a documented findings and plan of care. Patient was seen and examined.
--- NOTE | 2020-04-22 10:59 | ECHOF ---
Referral Reason:preop MEASUREMENTS -------- HEIGHT: 162.6 cm WEIGHT: 62.6 kg BP: 169/76 RVIDd: 3.4 cm (< 3.3) IVSd: 1.2 cm (0.6 - 1.1) LVIDd: 3.2 cm (3.9 - 5.3) LVPWd: 1.3 cm (0.6 - 1.1) IVSs: 1.5 cm LVIDs: 2.1 cm LVPWs: 1.5 cm LAESV Index (A-L): 37.49 ml/m Ao Diam: 3.1 cm (2.0 - 3.7) AV Cusp: 1.8 cm (1.5 - 2.6) LA Diam: 4.1 cm (2.7 - 3.8) MV EXCURSION: 14.865 mm (> 18.000) MV EF SLOPE: 80 mm/s (70 - 150) EPSS: 0.2 cm MV E Len: 0.93 m/s MV DecT: 95 ms MV A Len: 0.97 m/s MV E/A Ratio: 0.96 RAP: 5.00 mmHg RVSP: 40.88 mmHg FINDINGS -------- Sinus rhythm. This was a technically adequate study. The left ventricular size is normal. There is mild concentric left ventricular hypertrophy. Overa ll left ventricular systolic function is normal with, an EF between 55 - 60 %. The right ventricle is mildly enlarged. LA is moderately dilated 34-39 ml/m2 The right atrial size is normal. Interatrial and interventricular septum intact. There is mild aortic valve sclerosis. There is no evidence of aortic regurgitation. There is no e vidence of aortic stenosis. [id number] mitral regurgitation is present. [id number] tricuspid regurgitation present. There is mild to moderate pulmonary hypertension. The right ventricular systolic pressure, as measured by Doppler, is 40.88mmHg. There is no pulmonic regurgitation present. The aortic root size is normal. IVC Not well visulized. There is no pericardial effusion. CONCLUSIONS -------- 1. The left ventricular size is normal. 2. There is mild concentric left ventricular hypertrophy. 3. Overall left ventricular systolic function is normal with, an EF between 55 - 60 %. 4. The right ventricle is mildly enlarged. 5. LA is moderately dilated 34-39 ml/m2 6. There is mild aortic valve sclerosis. 7. There is no evidence of aortic regurgitation. 8. There is no evidence of aortic stenosis. 9. [id number] mitral regurgitation is present. 10. [id number] tricuspid regurgitation present. 11. There is mild to moderate pulmonary hypertension. 12. The right ventricular systolic pressure, as measured by Doppler, is 40.88mmHg. [employer]AL[employer]ICE: Arely Cesar RDCS
--- NOTE | 2020-04-22 11:00 | XR ---
EXAMINATION TYPE: XR chest 1V portable DATE OF EXAM: 04/22/2020 COMPARISON: Chest x-ray 12/12/2019 HISTORY: Shortness of breath TECHNIQUE: Single frontal view of the chest is obtained. FINDINGS: Interstitium is prominent, some patchy bilateral density noted. The maximal right humeral fracture is chronic. Vertebroplasty changes are noted in the spine. Bone mineralization is reduced. T here is no pneumothorax or pleural effusion. Aorta is dense and ectatic. Cardiac mediastinal silhouet te is stable, heart is enlarged, old left-sided rib fracture is seen. IMPRESSION: Interstitial lung disease, difficult to exclude pneumonia.
--- NOTE | 2020-04-22 11:00 | P.PN ---
Subjective Progress Note Date: 04/22/20 This is an 85-year-old female patient of Dr. Garcia and Dr. Pulido with past medical history of asthma, CAD with ischemic cardiomyopathy, previous history of lung cancer post resection who is known to have severe lower back pain, history of Klebsiella pneumoniae ESBL urinary tract infection, memory impairment, rectal cancer post low anterior resection with colostomy placement and she has had her stoma moved from one side to the other times to with significant peristomal hernia, patient developed to have a significant abdominal pain as well as constipation over the last few days at [facility] at that time she was given a Dulcolax suppository through the stoma and she was started on lactulose 30 g orally twice every day patient has been complaining of increased abdominal pain and distention not able to have a good BM through the stoma, an x-ray was done over there and that showed nonobstructive gas pattern with significant stool buildup, patient today was having increased amount of pain associated with nausea and not able to eat or drink she was dehydrated as well has not been eating much over the last few days, she was directed to go to the emergency department at [facility] where she was found to have an acute kidney injury as well a hyperkalemia, patient underwent CT abdomen and pelvis without contrast that showed a large right side abdominal wall ventral hernia that contains multiple loops of the small bowel hernia measures about 612 cm the opening is 5.5 cm the small bowel measures up to 3.5 cm in diameter there was incarcerated in and some mildly dilated loops of small bowel consistent with partial mechanical obstruction related to the hernia, patient was started on IV fluid as well as IV antibiotic, and surgical consultation was obtained from and had a long conversation with the emergency room physician on the complexity of the case and if the patient is not a candidate for any surgical intervention at [facility] she will need to be transferred to [facility], this was discussed with her over the phone. 04/21: Patient sitting up in bed in no apparent distress, she appears to be a bit short of breath, her IV fluids were decreased to 75 mL an hour, we'll monitor her input and output and daily weight, she was seen in consultation by cardiology in preparation for surgical intervention will be planned for tomorrow morning, I spoke general surgery and they feel that the patient can the served here for a better quality of life, and there is no need for the patient be transferred to a tertiary care center, cardiology consultation was obtained, echocardiogram will be done, EKG was done also continue beta gume in the form of metoprolol 25 mg orally twice every day, monitor the patient very closely at this time hold off ANGELICA inhibitor due to her kidney function, nephrology seen the patient as well and she seems to be doing better. 04/22: Patient is laying down in bed in minimal respiratory distress, she did receive 40 mg Lasix earlier today because of expiratory wheezes and increased shortness of breath, portable chest x-ray and abdominal x-ray was obtained, we will hold off any surgery at this time until obtaining the result of the x-ray patient does have a good stool output and her stoma at this time, echo care gram still pending at the time of dictation, I believe the patient needs to be monitored for another 24 hours before any surgical intervention. Objective - Vital Signs Vital signs: Vital Signs Temp 98.5 F 04/22/20 08:00 Pulse 99 04/22/20 08:00 Resp 20 04/22/20 08:00 BP 187/88 04/22/20 08:00 Pulse Ox 98 04/22/20 08:00 Intake & Output 04/21/20 04/22/20 04/22/20 18:59 06:59 18:59 Other: Voiding Method Diaper Diaper Diaper Incontinent Incontinent Incontinent # Voids 0 1 1 - Exam Review of Systems Constitutional: Reports anorexia, Reports fatigue, Reports lethargy, Reports malaise, Reports weakness, Reports weight loss Eyes: denies blurred vision, denies bulging eye, denies decreased vision Ears: bilateral: decreased hearing Ears, nose, mouth and throat: Denies dysphagia, Denies neck lump, Denies sore throat Cardiovascular: Denies chest pain, Denies decreased exercise tolerance, Denies dyspnea on exertion, Denies lightheadedness, Denies rapid heart beat, Denies shortness of breath, Denies syncope Respiratory: Denies congestion, Denies cough with sputum, Denies home oxygen, Denies sleep apnea, Denies snoring, Denies wheezing Gastrointestinal: Reports abdominal pain, Reports bloating, Reports constipation, Reports early satiety, Reports loss of appetite, Reports nausea, Reports vomiting Genitourinary: Denies dysuria, Denies nocturia Menstruation: Reports postmenopausal Musculoskeletal: Reports atrophy, Reports frequent falls, Reports gait dysfunc tion, Reports loss of height, Reports low back pain, Reports muscle weakness Musculoskeletal: absent: ankle pain, ankle stiffness, ankle swelling, elbow pain, elbow stiffness, elbow swelling, foot pain, foot stiffness, foot swelling, hand pain, hand stiffness, hand swelling, hip pain, hip stiffness, hip swelling, knee pain, knee stiffness, knee swelling, shoulder pain, shoulder stiffness, shoulder swelling, wrist pain, wrist stiffness, wrist swelling Integumentary: Denies pruritus, Denies rash Neurological: Reports balance difficulties, Reports gait dysfunction, Reports weakness Psychiatric: Denies anxiety, Denies depression Physical examination HEENT: Head is atraumatic, normocephalic, pupils were equal round reactive to light and recommendation, extraocular muscle movement were intact, sclera nonicteric conjunctiva are pale, mucous membranes of mouth are somewhat dry. Neck: Supple, no JVD, decreased carotid upstroke bilaterally. Chest: There is significant kyphosis present, decreased breath sounds at the bases, few rhonchi, no expiratory wheezes, no chest wall tenderness, no in tercostal retractions. Heart: First heart sound is depressed, second heart sounds normal, there is systolic ejection murmur 2/6 located in the left border. Abdomen: Soft and distended moderate tenderness of the right lower quadrant, there is peristomal hernia with significant ventral hernia in that area, associated with significant tenderness to palpation, positive for guarding, positive bowel sounds. Stoma bag is empty. Extremities: There is trace edema, no calf tenderness, dorsalis pedis +1 bilaterally. Neurologic examination: Patient is awake alert and oriented 2, cranial nerves II-12 appear grossly intact, muscle power were 3 out of 5 in upper extremities and 2 out of 5 in bilateral lower extremities, deep tendon reflexes were depressed bilaterally. - Labs CBC & Chem 7: 04/21/20 06:36 04/21/20 06:36 Labs: Microbiology - Last 24 Hours (Table) 04/20/20 14:57 Urine Culture - Preliminary Urine,Voided Gram Neg Bacilli Assessment and Plan Assessment: Assessment and plan: 1. Large right lateral abdominal wall hernia with incarceration. Continue the patient on IV fluid in the form of normal saline at 50 mL an hour, monitor input and output and daily weight, pain control, this is a high-risk patient still awaiting the result of the echocardiogram as well as repeated abdominal x-rays of the chest x-ray as the patient went into respiratory distress earlier in the morning., we'll continue the patient on IV antibiotic Rocephin 1 g IV piggyback every 24 hours, metronidazole 500 mg IV piggyback every 8 hours, continue current pain management, monitor the patient respiratory status. 2. Acute kidney injury due to poor oral intake of fluid and acute tubular necrosis. Continue IV fluid resuscitation normal saline 50 mL an hour, monitor input and output and daily weight, check the patient CMP tomorrow morning to 3. Hyperkalemia likely related to acute kidney injury. Continue IV fluid resuscitation and repeat her potassium level in the next few hours. 4. Metabolic encephalopathy secondary to acute kidney injury as well as incarcerated large ventral hernia. Continue IV fluid, continue IV antibiotic, monitor the patient very closely. Much better 5. Chronic kidney failure CKD stage II currently with acute kidney injury continue IV fluid resuscitation repeat CMP tomorrow morning. 6. CAD and non-ischemic cardiomyopathy and chronic diastolic heart failure with ejection fraction of 50%. We will maintain the patient on metoprolol 7. Hypertension and hypertensive cardiovascular disease. Continue metoprolol, hold lisinopril for now. 8. Sjogren syndrome. We'll hold off Salagen 9. Anemia of chronic medical illnesses. Continue to monitor the patient's CBC over the next 24 hours. 10. Chronic pain syndrome. We will hold off oral medication start the patient on IV pain management. 11. Overactive bladder. Discontinue Detrol. 12. 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 Appears to be at baseline. 13. History of rectal cancer post-low anterior resection with colostomy placement . 14. DVT prophylaxis. Start the patient on Lovenox 30 mg subcutaneously every 24 hours. 15. GI prophylaxis. Protonix 40 mg IV push every 24 hours. 16. Recurrent depression. Hold off Zyprexa and Lexapro for now. 17. Guarded prognosis..
--- NOTE | 2020-04-22 11:03 | XR ---
Abdomen HISTORY: Abdominal pain Correlation CT 04/20/2020, chest x-ray 04/22/2020 Postop changes are noted to the right hip. Bone mineralization is reduced. Old ramus fracture on the right appears healed. Indeterminate metallic densities over the soft tissues of the lower pelvis, pro bable vascular calcifications present in the pelvis. Patient is rotated. There are vertebral body jael nges, postop changes in the left lower quadrant. No definite bowel obstruction or pneumoperitoneum. P atchy density present at the lung bases. Right lower quadrant abdominal hernia contains bowel loops w ith some air-fluid levels that are not distended. IMPRESSION: Findings may represent ileus or enteritis rather than obstruction, correlate, follow-up a s indicated
--- NOTE | 2020-04-22 11:14 | P.PN ---
Progress Note - Text Progress Note Date: 04/22/20 Patient was noted to be in some respiratory distress this morning. She is being evaluated by Dr. sow. Chest x-ray and IV Lasix have been ordered. On exam vital signs are stable. Abdomen soft. There is a large right parastomal hernia. Patient was scheduled for surgery. We will reschedule her for another day 1 underlying medical condition is improved.
--- NOTE | 2020-04-22 11:28 | P.PN ---
Subjective Progress Note Date: 04/22/20 Principal diagnosis: This is a 89-year-old female seen in consultation because of acute kidney injury. Her creatinine was 1.73 on admission. Her baseline creatinine 0.86 as of 12/12/2019. She was admitted with abdominal pain she has a colostomy with incarcerated hernia around it. She did admit to some nausea vomiting and poor appetite Since hospitalization she has improved. Pain is less but still moderate Her creatinine has improved to 1.06 as of yesterday 04/21/2020. Left this morning are not available. She continues to have some pain. Seems to be in some distress. She is known with a rectal cancer with colostomy Sjogren syndrome, history of lung CA status post surgery nonischemic cardiomyopathy Objective - Vital Signs Vital signs: Vital Signs Temp 98.5 F 04/22/20 08:00 Pulse 99 04/22/20 08:00 Resp 20 04/22/20 08:00 BP 187/88 04/22/20 08:00 Pulse Ox 98 04/22/20 08:00 Intake & Output 04/21/20 04/22/20 04/22/20 18:59 06:59 18:59 Other: Voiding Method Diaper Diaper Diaper Incontinent Incontinent Incontinent # Voids 0 1 1 On examination she is in pain and looks well. Somewhat cachectic. HEENT exam no JVP no facial asymmetry Lungs are clear to auscultation fair air entry bilaterally Heart sounds unremarkable for any murmur rub gallop Abdomen shows colostomy with large hernia around it. Stool is noted in the colostomy bag Extremity exam was no edema Neurologically awake alert oriented but profoundly weak - Labs CBC & Chem 7: 04/21/20 06:36 04/21/20 06:36 Labs: Microbiology - Last 24 Hours (Table) 04/20/20 14:57 Urine Culture - Preliminary Urine,Voided Gram Neg Bacilli Assessment and Plan Plan: Impression 1. Acute kidney injury secondary to volume depletion from third spacing of fluid from an incarcerated hernia and possibly bowel obstruction, also had nausea vomiting. Creatinine is down to 1.06 as of yesterday 04/21/2020 last this morning apparently 2. Hyponatremia secondary to acute kidney injury. Sodium is 135 yesterday and 04/21/2020 3. Hyperkalemia secondary acute kidney injury. Potassium is 4.6 as of 04/21/2020 yesterday 4. History of nonischemic cardiomyopathy 5. History of CA lung surgery and rectal CA with low anterior resection and colostomy Recommendations 1. Would prefer to have a Baez catheter for accurate I's and O's given she is on IV fluids. 2. Chest x-ray not very clear cut S2. She had CHF 3. She is on 50 mL of normal saline, would continue it unless her respiratory status worsens
[2020-04-22] MEDS: hydrALAZINE HCL 20 MG/ML 1 ML VIAL IVP PRN (14:56)
[2020-04-22] MEDS: ONDANSETRON 4 MG/2 ML VIAL IVP PRN (14:56)
[2020-04-22] MEDS: HYDROmorphone 0.5 MG/0.5 ML SYRINGE IVP PRN ×2 (14:56→20:32)
--- NOTE | 2020-04-22 16:18 | CT ---
EXAMINATION TYPE: CT angio chest DATE OF EXAM: 04/22/2020 COMPARISON: 09/20/2018 HISTORY: elevated d-dimer CT DLP: 287.4 mGycm Automated exposure control for dose reduction was used. CONTRAST: Performed with IV Contrast, patient injected with 67cc mL of Isovue 370. There are 3-D post processed images. There are mild to moderate bilateral pleural effusions. There is infiltrate and atelectasis at both l keri bases. Thoracic aorta is atheromatous. There is no aortic aneurysm. There are large pulmonary art eries. I see no filling defect in the pulmonary arteries. There are no hilar masses. There is no medi astinal adenopathy. There is some coarse interstitial density in the mid and upper lung valdes. There is some linear infiltrate and atelectasis in the right upper lobe adjacent to the major fissure. There is thoracolumbar kyphotic deformity with numerous thoracic compression fractures up to 80%. The re is vertebroplasty at 2 levels in the mid thoracic spine. The upper abdominal soft tissues appear intact. IMPRESSION: No evidence of pulmonary embolism. There are new bilateral pleural effusions and pulmonary infiltrates and atelectasis compared to old e xam. Heart appears increased compared to old exam. This is probably congestive heart failure. There a re large pulmonary arteries consistent with pulmonary hypertension unchanged. Multiple thoracic compr ession fractures. There is a new compression fracture of T4 compared to old exam.
[2020-04-22] MEDS: AMMONIUM LACTATE 12% LOTION 225 GM BTL TOPICAL SCH (20:29)
[2020-04-22] MEDS: METOPROLOL SUCCINATE (ER) 25 MG TAB.ER.24H PO SCH (20:33)
[2020-04-23] MEDS: metroNIDAZOLE-NS PMX 500 MG in SALINE 1 100ML.BAG IVPB SCH ×4 (01:22→23:28)
[2020-04-23] MEDS: HYDROmorphone 0.5 MG/0.5 ML SYRINGE IVP PRN ×2 (01:25→04:28)
[2020-04-23] MEDS: hydrALAZINE HCL 20 MG/ML 1 ML VIAL IVP PRN (03:21)
[2020-04-23] MEDS: FLUTICASONE 220 MCG INHALER INHALATION SCH ×2 (07:55→21:01)
[2020-04-23 07:57] LABS: Basophils # (A) 0.1 k/uL (0-0.2); Basophils % (A) 0 %; Eosinophils # (A) 0.1 k/uL (0-0.7); Eosinophils % (A) 0 %; HCT 36.5 % (34.0-46.0); Lymphocytes # (A) 0.6 k/uL (1.0-4.8); Lymphocytes % (A) 4 %; MCH 31.9 pg (25.0-35.0); MCHC 32.9 g/dL (31.0-37.0); Mean Platelet Volume 7.1; Monocytes # (A) 0.6 k/uL (0-1.0); Monocytes % (A) 4 %; Neutrophils # (A) 13.3 k/uL (1.3-7.7); Neutrophils % (A) 91 %; Platelet Count 264 k/uL (150-450); RBC 3.77 m/uL (3.80-5.40); RDW 12.5 % (11.5-15.5); WBC 14.7 k/uL (3.8-10.6)
[2020-04-23 08:28] LABS: Albumin 3.5 g/dL (3.5-5.0); Calcium 8.7 mg/dL (8.4-10.2); Potassium 3.8 mmol/L (3.5-5.1); Total Bilirubin 0.4 mg/dL (0.2-1.3); Total Protein 6.8 g/dL (6.3-8.2)
--- NOTE | 2020-04-23 09:08 | P.PN ---
Subjective Patient is seen in follow-up for acute kidney injury. Renal function is back to baseline. Patient is not responding to verbal commands. She did receive Dilaudid about an hour ago. CT of the brain has been ordered. Vital signs are stable. General: The patient appeared well nourished and normally developed. HEENT: Head exam is unremarkable. Neck is without jugular venous distension. LUNGS: Breath sounds decreased. HEART: Rate and Rhythm are regular. ABDOMEN: Soft, nontender. Colostomy noted. EXTREMITITES: No edema. Objective - Vital Signs Vital signs: Vital Signs Temp 98.5 F 04/23/20 04:21 Pulse 114 H 04/23/20 04:17 Resp 24 04/23/20 04:21 BP 169/79 04/23/20 04:17 Pulse Ox 94 L 04/23/20 04:21 Intake & Output 04/22/20 04/23/20 04/23/20 18:59 06:59 18:59 Output Total 350 Balance -350 Weight 58 kg Output: Urine 350 Other: Voiding Method Diaper Indwelling Catheter Incontinent # Voids 3 - Labs CBC & Chem 7: 04/23/20 07:06 04/23/20 07:06 Labs: Abnormal Lab Results - Last 24 Hours (Table) 04/22/20 04/23/20 04/23/20 Range/Units 13:55 07:06 07:06 WBC 14.7 H (3.8-10.6) k/uL RBC 3.77 L (3.80-5.40) m/uL Neutrophils # 13.3 H (1.3-7.7) k/uL Lymphocytes # 0.6 L (1.0-4.8) k/uL D-Dimer 1.06 H (<0.60) mg/L FEU Chloride 110 H (98-107) mmol/L Carbon Dioxide 16 L (22-30) mmol/L BUN 21 H (7-17) mg/dL Glucose 128 H (74-99) mg/dL Microbiology - Last 24 Hours (Table) 04/20/20 14:57 Urine Culture - Preliminary Urine,Voided Providencia stuartii Assessment and Plan Plan: Assessment: 1. Acute kidney injury mostly prerenal improved with IV hydration. Creatinine was 1.73 on admission and is 0.86 today. 2. UTI with urine culture positive for prevention maintained on antibiotics. 3. Metabolic acidosis secondary to acute kidney injury and IV fluids. 4. Hypovolemic hyponatremia improved with IV hydration. 5. Covid-19 infection. On room air. 6. Benign hypertension. Plan: Maintain normal saline at 50 mL an hour. Add oral sodium bicarbonate. Add hydralazine 25 mg 3 times daily. To be held for systolic blood pressure less than 130. Follow-up CT of the brain.
--- NOTE | 2020-04-23 10:13 | CT ---
EXAMINATION TYPE: CT brain wo con DATE OF EXAM: 04/23/2020 COMPARISON: CT brain 09/19/2018 HISTORY: Altered Mental status, R/O Stroke CT DLP: 1158.4 mGycm Automated exposure control for dose reduction was used. Local imaging through the brain. FINDINGS: Cerebrovascular calcifications are present. Periventricular white matter shows patchy low-attenuation . No hemorrhage or hydrocephalus. Inflammatory change present in the sphenoid sinus. Calvarium is int act. IMPRESSION: AGE-RELATED CHANGES OF ATROPHY AND CHRONIC SMALL VESSEL ISCHEMIA. SINUS DISEASE.
--- NOTE | 2020-04-23 10:54 | P.PN ---
Subjective This is a pleasant 85 year old female past medical history significant for nonischemic cardiomyopathy, hypertension, peripheral vascular disease, obstructive sleep apnea, valvular heart disease, lung cancer status post resection, rectal cancer status post lower anterior resection with colostomy placement and memory impairment. She follows in the office with Dr. Pulido. She is seen and examined resting comfortably lying flat in bed in no acute distress. She is groaning incoherently but not conversing appropriately. She was given IV dilaudid an hour prior. She underwent a CT of her brain this morning revealing age-related changes of atrophy and chronic small vessel ischemia. Blood pressure 169/79 heart rate 114 afebrile maintaining oxygen saturation on room air. Laboratory data reviewed, WBC 14.7, hemoglobin 12, platelets 264, sodium 143, potassium 3.8, creatinine 0.86 and magnesium 2.1. Currently maintained on hydralazine 25 mg 3 times a day and Toprol 25 mg twice a day. GENERAL: Well-appearing, well-nourished and in no acute distress. NECK: Supple without JVD or thyromegaly. LUNGS: Breath sounds clear to auscultation bilaterally. Respiration equal and unlabored. No wheezes, rales or rhonchi. HEART: Regular rate and rhythm with systolic ejection murmur at the base, rubs or gallops. S1 and S2 heard. EXTREMITIES: Normal range of motion, no edema. No clubbing or cyanosis. Peripheral pulses intact. ASSESSMENT Abdominal wall hernia with incarceration Acute on chronic kidney disease Hyperkalemia, resolved Metabolic encephalopathy Hypertension History of non-ischemic cardiomyopathy, improved since 2008 Non-obstructive CAD 2008 cath Mitral regurgitation PLAN Add small dose of oral lasix, 40 mg daily. Pt is not conversing or responding appropriately. CT brain negative. Per Dr. Garcia, surgery is on hold for now. Nurse Practitioner note has been reviewed, I agree with a documented findings and plan of care. Patient was seen and examined. Objective - Vital Signs Vital signs: Vital Signs Temp 98.5 F 04/23/20 04:21 Pulse 114 H 04/23/20 04:17 Resp 24 04/23/20 04:21 BP 169/79 04/23/20 04:17 Pulse Ox 94 L 04/23/20 04:21 Intake & Output 04/22/20 04/23/20 04/23/20 18:59 06:59 18:59 Output Total 350 Balance -350 Weight 58 kg Output: Urine 350 Other: Voiding Method Diaper Indwelling Catheter Incontinent # Voids 3 - Labs CBC & Chem 7: 04/23/20 07:06 04/23/20 07:06 Labs: Abnormal Lab Results - Last 24 Hours (Table) 04/22/20 04/23/20 04/23/20 Range/Units 13:55 07:06 07:06 WBC 14.7 H (3.8-10.6) k/uL RBC 3.77 L (3.80-5.40) m/uL Neutrophils # 13.3 H (1.3-7.7) k/uL Lymphocytes # 0.6 L (1.0-4.8) k/uL D-Dimer 1.06 H (<0.60) mg/L FEU Chloride 110 H (98-107) mmol/L Carbon Dioxide 16 L (22-30) mmol/L BUN 21 H (7-17) mg/dL Glucose 128 H (74-99) mg/dL Microbiology - Last 24 Hours (Table) 04/20/20 14:57 Urine Culture - Preliminary Urine,Voided Providencia stuartii
[2020-04-23] MEDS: PANTOPRAZOLE 40 MG/10 ML VIAL IVP SCH (11:06)
[2020-04-23] MEDS: ENOXAPARIN 30 MG/0.3 ML SYRINGE SQ SCH (11:06)
[2020-04-23] MEDS: SODIUM BICARBONATE TAB 650 MG TAB PO SCH ×3 (11:07→19:56)
[2020-04-23] MEDS: METOPROLOL SUCCINATE (ER) 25 MG TAB.ER.24H PO SCH ×2 (11:07→19:56)
[2020-04-23] MEDS: cycloSPORINE 0.05% OPHTH 0.4 ML DROPERETTE BOTH EYES SCH ×2 (11:07→19:58)
[2020-04-23] MEDS: oxyCODONE-APAP 7.5-325MG 1 EACH TAB PO PRN ×2 (11:08→23:27)
[2020-04-23] MEDS: SODIUM CHLORIDE 0.9% 1,000 ML IV SCH (11:09)
[2020-04-23] MEDS: hydrALAZINE HCL 25 MG TAB PO SCH ×3 (11:09→19:56)
[2020-04-23] MEDS: FUROSEMIDE 40 MG TAB PO SCH (11:12)
[2020-04-23] MEDS: ALBUTEROL HFA INHALER INHALATION PRN ×2 (11:31→15:59)
--- NOTE | 2020-04-23 14:31 | P.PN ---
Subjective Progress Note Date: 04/23/20 CHIEF COMPLAINT: incarcerated parastomal hernia HISTORY OF PRESENT ILLNESS: This is a 85-year-old female with a previous history of diverticulitis and colostomy. Patient has developed a large parastomal h ernia with incarcerated small bowel. She has significant abdominal pain and problems with intermittent obstruction. Patient is followed by cardiology. They have placed on a small dose of oral Lasix. Dr. Garcia had ordered a computed tomography scan of the brain due to patient not conversing or re sponding appropriately. Computed tomography scan of the brain was negative. Patient is afebrile. PHYSICAL EXAM: VITAL SIGNS: Reviewed. GENERAL: Well-developed in no acute distress. HEENT: No sclera icterus. Extraocular movements grossly intact. Moist buccal mucosa. Head is atraumatic, normocephalic. ABDOMEN: Soft. Large right parastomal hernia NEUROLOGIC: Alert and oriented. Cranial nerves II through XII grossly intact. ASSESSMENT: 1. large parastomal hernia with incarcerated small bowel PLAN: -plan for surgery when patient is medically stable -Ok to start clear liquid diet Physician [employer] note has been reviewed by physician. Signing provider agrees with the documented findings, assessment, and plan of care. Objective - Vital Signs Vital signs: Vital Signs Temp 97.9 F 04/23/20 08:00 Pulse 114 H 04/23/20 08:00 Resp 24 04/23/20 04:21 BP 182/87 04/23/20 08:00 Pulse Ox 92 L 04/23/20 08:00 Intake & Output 04/22/20 04/23/20 04/23/20 18:59 06:59 18:59 Output Total 350 200 Balance -350 -200 Weight 58 kg Output: Urine 350 200 Other: Voiding Method Diaper Indwelling Catheter Indwelling Catheter Incontinent # Voids 3 - Labs CBC & Chem 7: 04/23/20 07:06 04/23/20 07:06 Labs: Abnormal Lab Results - Last 24 Hours (Table) 04/22/20 04/23/20 04/23/20 Range/Units 13:55 07:06 07:06 WBC 14.7 H (3.8-10.6) k/uL RBC 3.77 L (3.80-5.40) m/uL Neutrophils # 13.3 H (1.3-7.7) k/uL Lymphocytes # 0.6 L (1.0-4.8) k/uL D-Dimer 1.06 H (<0.60) mg/L FEU Chloride 110 H (98-107) mmol/L Carbon Dioxide 16 L (22-30) mmol/L BUN 21 H (7-17) mg/dL Glucose 128 H (74-99) mg/dL Microbiology - Last 24 Hours (Table) 04/20/20 14:57 Urine Culture - Preliminary Urine,Voided Emilia stvipulii
--- NOTE | 2020-04-23 15:09 | P.PN ---
Subjective Progress Note Date: 04/23/20 This is an 85-year-old female patient of Dr. Garcia and Dr. Pulido with past medical history of asthma, CAD with ischemic cardiomyopathy, previous history of lung cancer post resection who is known to have severe lower back pain, history of Klebsiella pneumoniae ESBL urinary tract infection, memory impairment, rectal cancer post low anterior resection with colostomy placement and she has had her stoma moved from one side to the other times to with significant peristomal hernia, patient developed to have a significant abdominal pain as well as constipation over the last few days at [facility] at that time she was given a Dulcolax suppository through the stoma and she was started on lactulose 30 g orally twice every day patient has been complaining of increased abdominal pain and distention not able to have a good BM through the stoma, an x-ray was done over there and that showed nonobstructive gas pattern with significant stool buildup, patient today was having increased amount of pain associated with nausea and not able to eat or drink she was dehydrated as well has not been eating much over the last few days, she was directed to go to the emergency department at [facility] where she was found to have an acute kidney injury as well a hyperkalemia, patient underwent CT abdomen and pelvis without contrast that showed a large right side abdominal wall ventral hernia that contains multiple loops of the small bowel hernia measures about 612 cm the opening is 5.5 cm the small bowel measures up to 3.5 cm in diameter there was incarcerated in and some mildly dilated loops of small bowel consistent with partial mechanical obstruction related to the hernia, patient was started on IV fluid as well as IV antibiotic, and surgical consultation was obtained from and had a long conversation with the emergency room physician on the complexity of the case and if the patient is not a candidate for any surgical intervention at [facility] she will need to be transferred to [facility], this was discussed with her over the phone. 04/21: Patient sitting up in bed in no apparent distress, she appears to be a bit short of breath, her IV fluids were decreased to 75 mL an hour, we'll monitor her input and output and daily weight, she was seen in consultation by cardiology in preparation for surgical intervention will be planned for tomorrow morning, I spoke general surgery and they feel that the patient can the served here for a better quality of life, and there is no need for the patient be transferred to a tertiary care center, cardiology consultation was obtained, echocardiogram will be done, EKG was done also continue beta gume in the form of metoprolol 25 mg orally twice every day, monitor the patient very closely at this time hold off ANGELICA inhibitor due to her kidney function, nephrology seen the patient as well and she seems to be doing better. 04/22: Patient is laying down in bed in minimal respiratory distress, she did receive 40 mg Lasix earlier today because of expiratory wheezes and increased shortness of breath, portable chest x-ray and abdominal x-ray was obtained, we will hold off any surgery at this time until obtaining the result of the x-ray patient does have a good stool output and her stoma at this time, echo care gram still pending at the time of dictation, I believe the patient needs to be monitored for another 24 hours before any surgical intervention. 04/23: Patient known to have mental status changes. CAT scan of the brain ordered which revealed only chronic age-related changes with chronic small vessel ischemia. CTA of the chest done yesterday revealed no pulmonary embolism. T here is new bilateral pleural effusions and pulmonary infiltrates and atelectasis. Heart appeared increased in size with probable congestive heart failure. Large pulmonary arteries consistent with pulmonary hypertension unchanged. Multiple old thoracic compression fractures. New compression frac ture of T4. Patient is afebrile, heart rate 114, blood pressure 182/87, pulse ox 92% on room air. CBC 14.7, hemoglobin 12. Sodium 143, potassium 3.8, chloride 110, CO2 16, BUN 21 and creatinine 0.86. Urine culture is positive for Providencia stuartii. Rocephin will be discontinued and patient started on meropenem 1 g IV piggyback every 8 hours. Echocardiogram reveals EF of 55-60% with mild concentric left ventricular hypertrophy, mild to moderate mitral regurgitation, [id number] tricuspid regurgitation, mild to moderate pulmonary hypertension. Objective - Vital Signs Vital signs: Vital Signs Temp 98.5 F 04/23/20 04:21 Pulse 114 H 04/23/20 04:17 Resp 24 04/23/20 04:21 BP 169/79 04/23/20 04:17 Pulse Ox 94 L 04/23/20 04:21 Intake & Output 04/22/20 04/23/20 04/23/20 18:59 06:59 18:59 Output Total 350 Balance -350 Weight 58 kg Output: Urine 350 Other: Voiding Method Diaper Indwelling Catheter Incontinent # Voids 3 - Exam Review of Systems Constitutional: Reports anorexia, Reports fatigue, Reports lethargy, Reports malaise, Reports weakness, Reports weight loss Eyes: denies blurred vision, denies bulging eye, denies decreased vision Ears: bilateral: decreased hearing Ears, nose, mouth and throat: Denies dysphagia, Denies neck lump, Denies sore throat Cardiovascular: Denies chest pain, Denies decreased exercise tolerance, Denies dyspnea on exertion, Denies lightheadedness, Denies rapid heart beat, Denies shortness of breath, Denies syncope Respiratory: Denies congestion, Denies cough with sputum, Denies home oxygen, Denies sleep apnea, Denies snoring, Denies wheezing Gastrointestinal: Reports abdominal pain, Reports bloating, Reports constipation, Reports early satiety, Reports loss of appetite, Reports nausea, Reports vomiting Genitourinary: Denies dysuria, Denies nocturia Menstruation: Reports postmenopausal Musculoskeletal: Reports atrophy, Reports frequent falls, Reports gait dysfunction, Reports loss of height, Reports low back pain, Reports muscle weakness Musculoskeletal: absent: ankle pain, ankle stiffness, ankle swelling, elbow pain, elbow stiffness, elbow swelling, foot pain, foot stiffness, foot swelling, hand pain, hand stiffness, hand swelling, hip pain, hip stiffness, hip swelling, knee pain, knee stiffness, knee swelling, shoulder pain, shoulder stiffness, shoulder swelling, wrist pain, wrist stiffness, wrist swelling Integumentary: Denies pruritus, Denies rash Neurological: Reports balance difficulties, Reports gait dysfunction, Reports weakness, reports confusion Psychiatric: Denies anxiety, Denies depression Physical examination HEENT: Head is atraumatic, normocephalic, pupils were equal round reactive to light and recommendation, extraocular muscle movement were intact, sclera nonicteric conjunctiva are pale, mucous membranes of mouth are somewhat dry. Neck: Supple, no JVD, decreased carotid upstroke bilaterally. Chest: There is significant kyphosis present, decreased breath sounds at the bases, few rhonchi, no expiratory wheezes, no chest wall tenderness, no intercostal retractions. Heart: First heart sound is depressed, second heart sounds normal, there is systolic ejection murmur 2/6 located in the left border. Abdomen: Soft and distended moderate tenderness of the right lower quadrant, there is peristomal hernia with significant ventral hernia in that area, associated with significant tenderness to palpation, positive for guarding, positive bowel sounds. Stoma bag is empty. Extremities: There is trace edema, no calf tenderness, dorsalis pedis +1 bilaterally. Neurologic examination: Patient is awake alert and oriented to person, cranial nerves II-12 appear grossly intact, muscle power were 3 out of 5 in upper extremities and 2 out of 5 in bilateral lower extremities, deep tendon reflexes were depressed bilaterally. - Labs CBC & Chem 7: 04/23/20 07:06 04/23/20 07:06 Labs: Abnormal Lab Results - Last 24 Hours (Table) 04/22/20 04/23/20 Range/Units 13:55 07:06 WBC 14.7 H (3.8-10.6) k/uL RBC 3.77 L (3.80-5.40) m/uL Neutrophils # 13.3 H (1.3-7.7) k/uL Lymphocytes # 0.6 L (1.0-4.8) k/uL D-Dimer 1.06 H (<0.60) mg/L FEU Microbiology - Last 24 Hours (Table) 04/20/20 14:57 Urine Culture - Preliminary Urine,Voided Providencia stuartii Assessment and Plan Assessment: Assessment and plan: 1. Large right lateral abdominal wall hernia with incarceration. Continue the patient on IV fluid in the form of normal saline at 50 mL an hour, monitor input and output and daily weight, pain control, this is a high-risk patient, we'll continue the patient on IV antibiotic Rocephin discontinued and patient started on meropenem 1 g IV piggyback every 8 hours, metronidazole 500 mg IV piggyback every 8 hours, continue current pain management, monitor the patient respiratory status. 2. Acute kidney injury due to poor oral intake of fluid and acute tubular necrosis. Continue IV fluid resuscitation normal saline 50 mL an hour, monitor input and output and daily weight, check the patient CMP tomorrow morning to 3. Hyperkalemia likely related to acute kidney injury. Continue IV fluid resuscitation and repeat her potassium level in the next few hours. 4. Metabolic encephalopathy secondary to acute kidney injury as well as incarcerated large ventral hernia. Continue IV fluid, continue IV antibiotic, monitor the patient very closely. Much better 5. Chronic kidney failure CKD stage II currently with acute kidney injury continue IV fluid resuscitation repeat CMP tomorrow morning. 6. CAD and non-ischemic cardiomyopathy and chronic diastolic heart failure with ejection fraction of 50%. We will maintain the patient on metoprolol 7. Hypertension and hypertensive cardiovascular disease. Continue metoprolol, hold lisinopril for now. 8. Sjogren syndrome. We'll hold off [place] 9. Anemia of chronic medical illnesses. Continue to monitor the patient's CBC over the next 24 hours. 10. Chronic pain syndrome. We will hold off oral medication start the patient on IV pain management. 11. Overactive bladder. Discontinue Detrol. 12. 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 Appears to be at baseline. 13. History of rectal cancer post-low anterior resection with colostomy placement . 14. DVT prophylaxis. Start the patient on Lovenox 30 mg subcutaneously every 24 hours. 15. GI prophylaxis. Protonix 40 mg IV push every 24 hours. 16. Recurrent depression. Hold off Zyprexa and Lexapro for now. 17. Acute urinary tract infection. Discontinue Rocephin and start meropenem 1 g IV piggyback every 8 hours.. 18. Valvular heart disease with [id number] mitral regurgitation, [id number] tricuspid regurgitation and mild to moderate pulmonary hypertension. 19. Guarded prognosis.
[2020-04-23] MEDS ORDERED: MEROPENEM 1 GM in SODIUM CHLORIDE 0.9% 100 ML IVPB ONE (16:00)
[2020-04-23] MEDS: AMMONIUM LACTATE 12% LOTION 225 GM BTL TOPICAL SCH (19:57)
[2020-04-24] MEDS: oxyCODONE-APAP 7.5-325MG 1 EACH TAB PO PRN ×2 (02:43→09:54)
[2020-04-24] MEDS ORDERED: DILTIAZEM DRIP BOLUS FROM BAG 1 MG SOLN IV ONE (03:03)
[2020-04-24] MEDS: MEROPENEM 1 GM in SODIUM CHLORIDE 0.9% 100 ML IVPB SCH ×2 (03:27→18:56)
[2020-04-24] MEDS: DILTIAZEM 125 MG in SODIUM CHLORIDE 0.9% 100 ML IV SCH ×2 (03:28→18:53)
[2020-04-24] MEDS: SODIUM CHLORIDE 0.9% 1,000 ML IV SCH (06:14)
[2020-04-24 08:10] LABS: Potassium 3.2 mmol/L (3.5-5.1)
[2020-04-24 08:13] LABS: Calcium 9.1 mg/dL (8.4-10.2)
[2020-04-24 08:35] LABS: Basophils # (A) 0.1 k/uL (0-0.2); Basophils % (A) 0 %; Eosinophils # (A) 0.2 k/uL (0-0.7); Eosinophils % (A) 1 %; HCT 34.3 % (34.0-46.0); Lymphocytes # (A) 0.7 k/uL (1.0-4.8); Lymphocytes % (A) 4 %; MCH 31.2 pg (25.0-35.0); MCHC 32.1 g/dL (31.0-37.0); MCV 97.4 fL (80.0-100.0); Mean Platelet Volume 7.4; Monocytes # (A) 0.7 k/uL (0-1.0); Monocytes % (A) 5 %; Neutrophils # (A) 13.9 k/uL (1.3-7.7); Neutrophils % (A) 89 %; Platelet Count 261 k/uL (150-450); RBC 3.52 m/uL (3.80-5.40); RDW 12.9 % (11.5-15.5); WBC 15.7 k/uL (3.8-10.6)
[2020-04-24] MEDS: FLUTICASONE 220 MCG INHALER INHALATION SCH ×2 (08:44→20:28)
[2020-04-24] MEDS: ALBUTEROL HFA INHALER INHALATION PRN (08:44)
[2020-04-24] MEDS ORDERED: Potassium Replacement Protocol 1 EACH MISC MISCELLANE PRN (09:22)
[2020-04-24] MEDS ORDERED: SODIUM CHLORIDE 0.9% 1,000 ML IV SCH (09:45)
[2020-04-24] MEDS: ENOXAPARIN 40 MG/0.4 ML SYRINGE SQ SCH (09:53)
[2020-04-24] MEDS: cycloSPORINE 0.05% OPHTH 0.4 ML DROPERETTE BOTH EYES SCH ×2 (09:53→20:05)
[2020-04-24] MEDS: POTASSIUM CHLORIDE 20 MEQ in WATER FOR INJECTION 1 100ML.BAG IVPB SCH ×2 (09:53→13:59)
[2020-04-24] MEDS: FUROSEMIDE 40 MG TAB PO SCH (09:54)
[2020-04-24] MEDS: METOPROLOL SUCCINATE (ER) 25 MG TAB.ER.24H PO SCH ×2 (09:54→20:06)
[2020-04-24] MEDS: PANTOPRAZOLE 40 MG/10 ML VIAL IVP SCH (09:54)
[2020-04-24] MEDS: hydrALAZINE HCL 25 MG TAB PO SCH ×3 (09:54→20:05)
[2020-04-24] MEDS: SODIUM BICARBONATE TAB 650 MG TAB PO SCH ×3 (09:54→20:05)
[2020-04-24] MEDS: metroNIDAZOLE-NS PMX 500 MG in SALINE 1 100ML.BAG IVPB SCH ×2 (09:55→18:00)
--- NOTE | 2020-04-24 10:09 | P.PN ---
Subjective Patient is seen in follow-up for acute kidney injury. Renal function slightly worse from diuretics. Patient is not responding to verbal commands but is awake. She is maintained on Cardizem drip for A. fib. Oral intake is poor. Sodium level CXLVIII today. Potassium was low. Vital signs are stable. General: The patient appeared well nourished and normally developed. HEENT: Head exam is unremarkable. Neck is without jugular venous distension. LUNGS: Breath sounds decreased. HEART: Irregular rate and rhythm. ABDOMEN: Soft, nontender. Colostomy noted. EXTREMITITES: Trace edema. Objective - Vital Signs Vital signs: Vital Signs Temp 98.8 F 04/24/20 03:45 Pulse 130 H 04/24/20 03:45 Resp 18 04/24/20 03:45 BP 139/82 04/24/20 03:45 Pulse Ox 98 04/24/20 03:45 Intake & Output 04/23/20 04/24/20 04/24/20 18:59 06:59 18:59 Intake Total 0 690 Output Total 800 625 Balance -800 65 Weight 58 kg Intake: Intake, IV Titration 450 Amount Meropenem 1 gm In Sodium 100 Chloride 0.9% 100 ml @ 200 mls/hr IVPB ONCE ONE Rx#:[id number] Sodium Chloride 0.9% 1, 250 000 ml @ 50 mls/hr IV . Q20H [facility] Rx#:[id number] metroNIDAZOLE-NS PMX 500 100 mg In Saline 1 100ml.bag @ 100 mls/hr IVPB Q8HR [facility] Rx#:[id number] Oral 0 240 Output: Urine 800 625 Other: Voiding Method Indwelling Catheter Indwelling Catheter - Labs CBC & Chem 7: 04/24/20 08:08 04/24/20 07:51 Labs: Abnormal Lab Results - Last 24 Hours (Table) 04/24/20 04/24/20 Range/Units 07:51 08:08 WBC 15.7 H (3.8-10.6) k/uL RBC 3.52 L (3.80-5.40) m/uL Hgb 11.0 L (11.4-16.0) gm/dL Neutrophils # 13.9 H (1.3-7.7) k/uL Lymphocytes # 0.7 L (1.0-4.8) k/uL Sodium 148 H (137-145) mmol/L Potassium 3.2 L (3.5-5.1) mmol/L Chloride 113 H (98-107) mmol/L Carbon Dioxide 20 L (22-30) mmol/L BUN 25 H (7-17) mg/dL Creatinine 1.12 H (0.52-1.04) mg/dL Glucose 122 H (74-99) mg/dL Microbiology - Last 24 Hours (Table) 04/20/20 14:57 Urine Culture - Final Urine,Voided Providencia stuartii Proteus mirabilis Assessment and Plan Plan: Assessment: 1. Acute kidney injury mostly prerenal secondary to hemodynamic instability and diuresis. Creatinine 1.12 today. She also received IV contrast dye on 04/22/2020. 2. UTI with urine culture positive for providencia maintained on antibiotics. 3. Metabolic acidosis secondary to acute kidney injury and IV fluids. Maintained on oral bicarb. Better. 4. Hypernatremia secondary to lack of oral water intake. 5. Covid-19 infection. Currently on 2 L cannula. 6. Benign hypertension. Stable. 7. Volume overload. 8. Hypokalemia from poor intake and diuretics. Magnesium normal. 9. A. fib with RVR maintained on Cardizem drip. Plan: Stop normal saline. Start D5W at 60 mL an hour. Potassium being replaced. Continue to monitor renal function and urine output.
[2020-04-24] MEDS ORDERED: DEXTROSE 5% IN WATER 1,000 ML IV SCH (10:15)
--- NOTE | 2020-04-24 13:04 | P.PN ---
Subjective This is a pleasant 85 year old female past medical history significant for nonischemic cardiomyopathy, hypertension, peripheral vascular disease, obstructive sleep apnea, valvular heart disease, lung cancer status post resection, rectal cancer status post lower anterior resection with colostomy placement and memory impairment. She follows in the office with Dr. Pulido. She is seen and examined laying flat. She is in no respiratory distress. She still is not communicating or conversing. According to the nursing staff she is not taking oral medications wither. She was initiated on IV cardizem last night for tachycardia. Rhythm strips and EKG reviewed. She is having sinus tachycardia, no afib noted. Blood pressure 160/70 heart rate currently 89 afebrile and maintaining oxygen saturation on nasal cannula. Laboratory data reviewed, WBC 15.7, hgb 11, platelets 261, sodium 148, potassium 3.2, creatinine 1.12 and magnesium 2.0. GENERAL: Well-appearing, well-nourished and in no acute distress. NECK: Supple without JVD or thyromegaly. LUNGS: Breath sounds clear to auscultation bilaterally. Respiration equal and unlabored. No wheezes, rales or rhonchi. HEART: Regular rate and rhythm with systolic ejection murmur at the base, rubs or gallops. S1 and S2 heard. EXTREMITIES: Normal range of motion, no edema. No clubbing or cyanosis. Peripheral pulses intact. ASSESSMENT Abdominal wall hernia with incarceration Acute on chronic kidney disease Hyperkalemia, resolved Metabolic encephalopathy Sinus tachycardia Hypertension History of non-ischemic cardiomyopathy, improved since 2008 Non-obstructive CAD 2009 cath Mitral regurgitation PLAN Clinically stable from a cardiac perspective. She appears to be uncomfortable with abdominal discomfort. Surgery pending at this time. Cardizem can be continued at this time for blood pressure control as she is not taking her oral pills. Nurse Practitioner note has been reviewed, I agree with a documented findings and plan of care. Patient was seen and examined. Objective - Vital Signs Vital signs: Vital Signs Temp 97.9 F 04/24/20 08:00 Pulse 89 04/24/20 08:00 Resp 18 04/24/20 03:45 BP 160/70 04/24/20 08:00 Pulse Ox 97 04/24/20 08:00 Intake & Output 04/23/20 04/24/20 04/24/20 18:59 06:59 18:59 Intake Total 0 690 100 Output Total 800 625 Balance -800 65 100 Weight 58 kg Intake: Intake, IV Titration 450 100 Amount Meropenem 1 gm In Sodium 100 100 Chloride 0.9% 100 ml @ 200 mls/hr IVPB ONCE ONE Rx#:[id number] Sodium Chloride 0.9% 1, 250 000 ml @ 50 mls/hr IV . Q20H [facility] Rx#:[id number] metroNIDAZOLE-NS PMX 500 100 mg In Saline 1 100ml.bag @ 100 mls/hr IVPB Q8HR [facility] Rx#:[id number] Oral 0 240 Output: Urine 800 625 Other: Voiding Method Indwelling Catheter Indwelling Catheter Indwelling Catheter - Labs CBC & Chem 7: 04/24/20 08:08 04/24/20 07:51 Labs: Abnormal Lab Results - Last 24 Hours (Table) 04/24/20 04/24/20 Range/Units 07:51 08:08 WBC 15.7 H (3.8-10.6) k/uL RBC 3.52 L (3.80-5.40) m/uL Hgb 11.0 L (11.4-16.0) gm/dL Neutrophils # 13.9 H (1.3-7.7) k/uL Lymphocytes # 0.7 L (1.0-4.8) k/uL Sodium 148 H (137-145) mmol/L Potassium 3.2 L (3.5-5.1) mmol/L Chloride 113 H (98-107) mmol/L Carbon Dioxide 20 L (22-30) mmol/L BUN 25 H (7-17) mg/dL Creatinine 1.12 H (0.52-1.04) mg/dL Glucose 122 H (74-99) mg/dL Microbiology - Last 24 Hours (Table) 04/20/20 14:57 Urine Culture - Final Urine,Voided Providencia stuartii Proteus mirabilis
[2020-04-24] MEDS: DEXTROSE 5% IN WATER 500 ML IV SCH (13:59)
--- NOTE | 2020-04-24 14:13 | P.PN ---
Subjective Progress Note Date: 04/24/20 CHIEF COMPLAINT: incarcerated parastomal hernia HISTORY OF PRESENT ILLNESS: This is a 85-year-old female with a previous history of diverticulitis and colostomy. Patient has developed a large parastomal h ernia with incarcerated small bowel. She has significant abdominal pain and problems with intermittent obstruction. Patient is followed by cardiology. They have placed on oral Lasix. Patient has been cleared by cardiology. She is currently on IV Cardizem for sinus tachycardia. Patient not taking her oral pain medication. Afebrile white count up at 15.7 potassium is 3.2 and being replaced PHYSICAL EXAM: VITAL SIGNS: Reviewed. GENERAL: Well-developed in no acute distress. HEENT: No sclera icterus. Extraocular movements grossly intact. Moist buccal mucosa. Head is atraumatic, normocephalic. ABDOMEN: Soft. Large right parastomal hernia. Stool present in colostomy NEUROLOGIC: Obtunded ASSESSMENT: 1. large parastomal hernia with incarcerated small bowel PLAN: -plan for surgery when patient is medically stable -Continue clear liquid diet Physician [employer] note has been reviewed by physician. Signing provider agrees with the documented findings, assessment, and plan of care. Objective - Vital Signs Vital signs: Vital Signs Temp 97.9 F 04/24/20 08:00 Pulse 89 04/24/20 08:00 Resp 18 04/24/20 03:45 BP 160/70 04/24/20 08:00 Pulse Ox 97 04/24/20 08:00 Intake & Output 04/23/20 04/24/20 04/24/20 18:59 06:59 18:59 Intake Total 0 690 100 Output Total 800 625 Balance -800 65 100 Weight 58 kg Intake: Intake, IV Titration 450 100 Amount Meropenem 1 gm In Sodium 100 100 Chloride 0.9% 100 ml @ 200 mls/hr IVPB ONCE ONE Rx#:[id number] Sodium Chloride 0.9% 1, 250 000 ml @ 50 mls/hr IV . Q20H [facility] Rx#:[id number] metroNIDAZOLE-NS PMX 500 100 mg In Saline 1 100ml.bag @ 100 mls/hr IVPB Q8HR [facility] Rx#:[id number] Oral 0 240 Output: Urine 800 625 Other: Voiding Method Indwelling Catheter Indwelling Catheter Indwelling Catheter - Labs CBC & Chem 7: 04/24/20 08:08 04/24/20 07:51 Labs: Abnormal Lab Results - Last 24 Hours (Table) 04/24/20 04/24/20 Range/Units 07:51 08:08 WBC 15.7 H (3.8-10.6) k/uL RBC 3.52 L (3.80-5.40) m/uL Hgb 11.0 L (11.4-16.0) gm/dL Neutrophils # 13.9 H (1.3-7.7) k/uL Lymphocytes # 0.7 L (1.0-4.8) k/uL Sodium 148 H (137-145) mmol/L Potassium 3.2 L (3.5-5.1) mmol/L Chloride 113 H (98-107) mmol/L Carbon Dioxide 20 L (22-30) mmol/L BUN 25 H (7-17) mg/dL Creatinine 1.12 H (0.52-1.04) mg/dL Glucose 122 H (74-99) mg/dL Microbiology - Last 24 Hours (Table) 04/20/20 14:57 Urine Culture - Final Urine,Voided Providencia stuartii Proteus mirabilis
--- NOTE | 2020-04-24 14:32 | P.PN ---
Subjective Progress Note Date: 04/24/20 This is an 85-year-old female patient of Dr. Garcia and Dr. Pulido with past medical history of asthma, CAD with ischemic cardiomyopathy, previous history of lung cancer post resection who is known to have severe lower back pain, history of Klebsiella pneumoniae ESBL urinary tract infection, memory impairment, rectal cancer post low anterior resection with colostomy placement and she has had her stoma moved from one side to the other times to with significant peristomal hernia, patient developed to have a significant abdominal pain as well as constipation over the last few days at [facility] at that time she was given a Dulcolax suppository through the stoma and she was started on lactulose 30 g orally twice every day patient has been complaining of increased abdominal pain and distention not able to have a good BM through the stoma, an x-ray was done over there and that showed nonobstructive gas pattern with significant stool buildup, patient today was having increased amount of pain associated with nausea and not able to eat or drink she was dehydrated as well has not been eating much over the last few days, she was directed to go to the emergency department at [facility] where she was found to have an acute kidney injury as well a hyperkalemia, patient underwent CT abdomen and pelvis without contrast that showed a large right side abdominal wall ventral hernia that contains multiple loops of the small bowel hernia measures about 612 cm the opening is 5.5 cm the small bowel measures up to 3.5 cm in diameter there was incarcerated in and some mildly dilated loops of small bowel consistent with partial mechanical obstruction related to the hernia, patient was started on IV fluid as well as IV antibiotic, and surgical consultation was obtained from and had a long conversation with the emergency room physician on the complexity of the case and if the patient is not a candidate for any surgical intervention at [facility] she will need to be transferred to [facility], this was discussed with her over the phone. 04/21: Patient sitting up in bed in no apparent distress, she appears to be a bit short of breath, her IV fluids were decreased to 75 mL an hour, we'll monitor her input and output and daily weight, she was seen in consultation by cardiology in preparation for surgical intervention will be planned for tomorrow morning, I spoke general surgery and they feel that the patient can the served here for a better quality of life, and there is no need for the patient be transferred to a tertiary care center, cardiology consultation was obtained, echocardiogram will be done, EKG was done also continue beta gume in the form of metoprolol 25 mg orally twice every day, monitor the patient very closely at this time hold off ANGELICA inhibitor due to her kidney function, nephrology seen the patient as well and she seems to be doing better. 04/22: Patient is laying down in bed in minimal respiratory distress, she did receive 40 mg Lasix earlier today because of expiratory wheezes and increased shortness of breath, portable chest x-ray and abdominal x-ray was obtained, we will hold off any surgery at this time until obtaining the result of the x-ray patient does have a good stool output and her stoma at this time, echo care gram still pending at the time of dictation, I believe the patient needs to be monitored for another 24 hours before any surgical intervention. 04/23: Patient known to have mental status changes. CAT scan of the brain ordered which revealed only chronic age-related changes with chronic small vessel ischemia. CTA of the chest done yesterday revealed no pulmonary embolism. T here is new bilateral pleural effusions and pulmonary infiltrates and atelectasis. Heart appeared increased in size with probable congestive heart failure. Large pulmonary arteries consistent with pulmonary hypertension unchanged. Multiple old thoracic compression fractures. New compression frac ture of T4. Patient is afebrile, heart rate 114, blood pressure 182/87, pulse ox 92% on room air. CBC 14.7, hemoglobin 12. Sodium 143, potassium 3.8, chloride 110, CO2 16, BUN 21 and creatinine 0.86. Urine culture is positive for Providencia stuartii. Rocephin will be discontinued and patient started on meropenem 1 g IV piggyback every 8 hours. Echocardiogram reveals EF of 55-60% with mild concentric left ventricular hypertrophy, mild to moderate mitral regurgitation, [id number] tricuspid regurgitation, mild to moderate pulmonary hypertension. 2: Patient continues to have increased confusion and noted to have difficulty swallowing. Speech therapy has evaluated with recommendations. Consult has also been added for neurology for dysphagia. Medications reviewed and patient r esumed on Zyprexa and Lexapro. Patient is afebrile, heart rate 89, blood pressure 160/70, pulse ox 97% on 2 L nasal cannula. There is slight and there is a slight rise in her leukocytosis of 15.7. Hemoglobin is 11. Sodium is 148 potassium 3.2, chloride 113, CO2 20, BUN 25 and creatinine 1.12. IV fluids transition to dextrose 5% at 60 mL/h. Cardiology ordered Cardizem drip for episode of atrial fibrillation. She is continued on IV antibiotics with meropenem and Flagyl. Patient's will be contacted via phone and updated. Patient is not stable at this time for surgical intervention. Objective - Vital Signs Vital signs: Vital Signs Temp 98.8 F 04/24/20 03:45 Pulse 130 H 04/24/20 03:45 Resp 18 04/24/20 03:45 BP 139/82 04/24/20 03:45 Pulse Ox 98 04/24/20 03:45 Intake & Output 04/23/20 04/23/20 04/24/20 06:59 18:59 06:59 Intake Total 0 690 Output Total 350 800 625 Balance -350 -800 65 Weight 58 kg 58 kg Intake: Intake, IV Titration 450 Amount Meropenem 1 gm In Sodium 100 Chloride 0.9% 100 ml @ 200 mls/hr IVPB ONCE ONE Rx#:[id number] Sodium Chloride 0.9% 1, 250 000 ml @ 50 mls/hr IV . Q20H [facility] Rx#:[id number] metroNIDAZOLE-NS PMX 500 100 mg In Saline 1 100ml.bag @ 100 mls/hr IVPB Q8HR [facility] Rx#:[id number] Oral 0 240 Output: Urine 350 800 625 Other: Voiding Method Indwelling Catheter Indwelling Catheter Indwelling Catheter - Exam Review of Systems Constitutional: Reports anorexia, Reports fatigue, Reports lethargy, Reports malaise, Reports weakness, Reports weight loss Eyes: denies blurred vision, denies bulging eye, denies decreased vision Ears: bilateral: decreased hearing Ears, nose, mouth and throat: Denies dysphagia, Denies neck lump, Denies sore throat Cardiovascular: Denies chest pain, Denies decreased exercise tolerance, Denies dyspnea on exertion, Denies lightheadedness, Denies rapid heart beat, Denies shortness of breath, Denies syncope Respiratory: Denies congestion, Denies cough with sputum, Denies home oxygen, Denies sleep apnea, Denies snoring, Denies wheezing Gastrointestinal: Reports abdominal pain, Reports bloating, Reports constipation, Reports early satiety, Reports loss of appetite, Reports nausea, Reports vomiting Genitourinary: Denies dysuria, Denies nocturia Menstruation: Reports postmenopausal Musculoskeletal: Reports atrophy, Reports frequent falls, Reports gait dysfunction, Reports loss of height, Reports low back pain, Reports muscle weakness Musculoskeletal: absent: ankle pain, ankle stiffness, ankle swelling, elbow pain, elbow stiffness, elbow swelling, foot pain, foot stiffness, foot swelling, hand pain, hand stiffness, hand swelling, hip pain, hip stiffness, hip swelling, knee pain, knee stiffness, knee swelling, shoulder pain, shoulder stiffness, shoulder swelling, wrist pain, wrist stiffness, wrist swelling Integumentary: Denies pruritus, Denies rash Neurological: Reports balance difficulties, Reports gait dysfunction, Reports weakness, reports confusion Psychiatric: Denies anxiety, Denies depression Physical examination HEENT: Head is atraumatic, normocephalic, pupils were equal round reactive to light and recommendation, extraocular muscle movement were intact, sclera n onicteric conjunctiva are pale, mucous membranes of mouth are somewhat dry. Neck: Supple, no JVD, decreased carotid upstroke bilaterally. Chest: There is significant kyphosis present, decreased breath sounds at the bases, few rhonchi, no expiratory wheezes, no chest wall tenderness, no intercostal retractions. Heart: First heart sound is depressed, second heart sounds normal, there is systolic ejection murmur 2/6 located in the left border. Abdomen: Soft and distended moderate tenderness of the right lower quadrant, there is peristomal hernia with significant ventral hernia in that area, a ssociated with significant tenderness to palpation, positive for guarding, positive bowel sounds. Stoma bag is empty. Extremities: There is trace edema, no calf tenderness, dorsalis pedis +1 bilater ally. Neurologic examination: Patient is awake alert and oriented to person, cranial nerves II-12 appear grossly intact, muscle power were 3 out of 5 in upper extremities and 2 out of 5 in bilateral lower extremities, deep tendon reflexes were depressed bilaterally. - Labs CBC & Chem 7: 04/24/20 08:08 04/24/20 07:51 Labs: Abnormal Lab Results - Last 24 Hours (Table) 04/23/20 04/23/20 Range/Units 07:06 07:06 WBC 14.7 H (3.8-10.6) k/uL RBC 3.77 L (3.80-5.40) m/uL Neutrophils # 13.3 H (1.3-7.7) k/uL Lymphocytes # 0.6 L (1.0-4.8) k/uL Chloride 110 H (98-107) mmol/L Carbon Dioxide 16 L (22-30) mmol/L BUN 21 H (7-17) mg/dL Glucose 128 H (74-99) mg/dL Microbiology - Last 24 Hours (Table) 04/20/20 14:57 Urine Culture - Final Urine,Voided Providencia stuartii Proteus mirabilis Assessment and Plan Assessment: Assessment and plan: 1. Large right lateral abdominal wall hernia with incarceration. Continue the patient on IV fluid in the form of normal saline at 50 mL an hour, monitor input and output and daily weight, pain control, this is a high-risk patient, we'll continue the patient on IV antibiotic Rocephin discontinued and patient started on meropenem 1 g IV piggyback every 8 hours, metronidazole 500 mg IV piggyback every 8 hours, continue current pain management, monitor the patient respiratory status. 2. Acute kidney injury due to poor oral intake of fluid and acute tubular necrosis. Continue IV fluid resuscitation normal saline 50 mL an hour, monitor input and output and daily weight, check the patient CMP tomorrow morning to 3. Hyperkalemia likely related to acute kidney injury. Continue IV fluid resuscitation and repeat her potassium level in the next few hours. 4. Metabolic encephalopathy secondary to acute kidney injury as well as incarcerated large ventral hernia. Continue IV fluid, continue IV antibiotic, monitor the patient very closely. Much better 5. Chronic kidney failure CKD stage II currently with acute kidney injury continue IV fluid resuscitation repeat CMP tomorrow morning. 6. CAD and non-ischemic cardiomyopathy and chronic diastolic heart failure with ejection fraction of 50%. We will maintain the patient on metoprolol 7. Hypertension and hypertensive cardiovascular disease. Continue metoprolol, hold lisinopril for now. 8. Sjogren syndrome. We'll hold off [place] 9. Anemia of chronic medical illnesses. Continue to monitor the patient's CBC over the next 24 hours. 10. Chronic pain syndrome. We will hold off oral medication start the patient on IV pain management. 11. Overactive bladder. Discontinue Detrol. 12. 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 Appears to be at baseline. 13. History of rectal cancer post-low anterior resection with colostomy placement . 14. DVT prophylaxis. Start the patient on Lovenox 30 mg subcutaneously every 24 hours. 15. GI prophylaxis. Protonix 40 mg IV push every 24 hours. 16. Recurrent depression. Hold off Zyprexa and Lexapro for now. 17. Acute urinary tract infection. Discontinue Rocephin and start meropenem 1 g IV piggyback every 8 hours.. 18. Valvular heart disease with [id number] mitral regurgitation, [id number] tricuspid regurgitation and mild to moderate pulmonary hypertension. 19. Hypernatremia. IV fluids changed to D5 at 50 mL per hour. Guarded prognosis.
--- NOTE | 2020-04-24 17:46 | P.CNNES ---
History of Present Illness Consult date: 04/24/20 Requesting physician: Caitlin Francis Reason for Consult: dysphagia History of Present Illness: This is an 85-year-old woman with dementia hypertension, peripheral vascular disease, nonischemic cardiomyopathy, valvular heart disease, lung cancer status post resection, rectal cancer status post lower anterior resection with colostomy placement and has had her stoma removed and replaced presented to the emergency department on 04/20/2020 for abdominal pain constipation. She also has poor appetite. History is obtained from medical records since patient is unable to provide that. Patient resides at [facility]. Neurology is consulted for dysphagia and alterted mental status. I contacted the patient's spouse (Prosper Victor) you have phone and dated that the patient has been not talking for a while. Upon asking him if she was oriented to herself he stated that no and that's been going on for a while. He cannot tell me the patient's baseline or when the change exactly happened. According to the patient's nurse, the patient has not seen the patient were the last 1 year since the patient is at [facility] and that because of the COVID-19 pandemic. I attempted to contact [facility] to find that the patient's baseline but I received a busy signal. Work-up in our facility consisted of: Patient underwent CT of the abdomen and pelvis revealed large right sided abdominal wall ventral hernia which contains multiple loops of small bowel with mildly dilated loops of small bowel consistent with partial mechanical obstruction related to the hernia. On presentation the hospital patient initial white blood cell is 10.2 and currently is 15.7 and it's predominantly neutrophilic. Her initial sodium was 133 and currently is the sodium is 148. Her initial potassium is 5.8 which is elevated and currently is 3.2. Patient was also found to be acute kidney injury with initial creatinine being 1.73 which resolved but the recent creatinine is slightly elevated it's 1.12. Initial be on 69 and the most recent one is 25. AST is 20 and ALTs 12. Calcium 9.1. Lipase is 11 ( normal value is 23 to 300). Patient had CT of the head Patient had a CT of the head on the 04/23/2020 as reported as age-related changes of atrophy and chronic small vessel ischemia. Sinus disease. Cardiology cleared the patient for surgery. Upon reviewing the patient's medical record the it seems that the patient was seen by the neurologist and our hospital on 09/20/[address] Desai for syncope episode. It is mentioned in his note that the patient has a history of pelvic fracture. Also had a routine EEG on 09/20/2018 and was reported as normal. Review of Systems Review of system is limited with apparent positive and negative as per HPI Past Medical History Past Medical History: Asthma, Coronary Artery Disease (CAD), Cancer, Hyperlip idemia, Hypertension, Memory Impairment, Musculoskeletal Disorder, Osteoarthritis (OA), Sleep Apnea/CPAP/BIPAP Additional Past Medical History / Comment(s): Sjogren syndrome, RECTAL CANCER WITH COLOSTOMY , anemia, OVER ACTIVE BLADDER, hx. L4 fracture, BRONCH WASHING WAS POSITIVE FOR KLEBSIELLA PNUEMONAE., BACK PAIN. FREQUENT FALLS. History of Any Multi-Drug Resistant Organisms: ESBL, MRSA Date of last positivie culture/infection: 09/21/18 MRSA; 09/30/19 ESBL E.COLI MDRO Source:: Back-MRSA; Urine-ESBL Past Surgical History: Adenoidectomy, Appendectomy, Back Surgery, Bowel Resection, Breast Surgery, Heart Catheterization, Hysterectomy, Tonsillectomy, Uterine Ablation Additional Past Surgical History / Comment(s): PERMANENT COLOSTOMY. throat surgery removed uvula,L3-L4 two fractured vertebrae, sofi cataracts, kyphoplasty L4, PICCLINE IN MAY FOR ABX(PNE) SINCE REMOVED. PICC LINE PLACEMENT, COLONOSCOPY, EGD, UTI 08/2017 Past Anesthesia/Blood Transfusion Reactions: No Reported Reaction Additional Past Anesthesia/Blood Transfusion Reaction / Comment(s): HX OF BLOOD TRANSFUSION Past Psychological History: No Psychological Hx Reported Smoking Status: Never smoker Past Alcohol Use History: None Reported Past Drug Use History: None Reported - Past Family History Mother History Unknown: Yes Family Medical History: Dialysis, Renal Disease Brother(s) History Unknown: Yes Family Medical History: No Reported History Sister(s) History Unknown: Yes Family Medical History: No Reported History Additional Family Medical History / Comment(s): Parkinsons Father Family Medical History: Cancer, CVA/TIA Additional Family Medical History / Comment(s): 3 out of 4 siblings dx. autoimmune disease Medications and Allergies Home Medications Medication Instructions Recorded Confirmed Type Escitalopram [Lexapro] 10 mg PO DAILY@0900 08/27/18 04/20/20 History Pilocarpine HCl [Salagen] 7.5 mg PO TID@0600,1400,2200 09/19/18 04/20/20 History Sennosides/Docusate Sodium [Dok 1 tab PO BID@0900,209909/19/18 04/20/20 History Plus Tablet] Cholecalciferol [Vitamin D3 (25 1,000 unit PO DAILY@0900 02/14/19 04/20/20 History Mcg = 1000 Iu)] Vit C/E/Zn/Coppr/Lutein/Zeaxan 1 cap PO DAILY@0900 02/14/19 04/20/20 History [Preservision Areds 2 Softgel] Tolterodine Tartrate [Detrol LA] 4 mg PO DAILY@59902/15/19 04/20/20 History Acetaminophen Tab [Tylenol] 650 mg PO TID@0600,1400,2200 12/12/19 04/20/20 History Albuterol Sulfate [Proair 1 puff INHALATION RT-QID PRN 12/12/19 04/20/20 History Respiclick] Ammonium Lactate Lotion 1 applic TOPICAL HS 12/12/19 04/20/20 History [Lac-Hydrin 12% Lotion] Gabapentin 300 mg PO BID@09,2099 #6 cap 12/12/19 04/20/20 Rx Lansoprazole 30 mg PO DAILY@0612/12/19 04/20/20 History Losartan [Cozaar] 50 mg PO DAILY@89912/12/19 04/20/20 History Magnesium Oxide 400 mg PO BID@0900,209912/12/19 04/20/20 History Methyl Salicylate/Menthol 1 patch TRANSDERM DAILY@89912/12/19 04/20/20 History [Salonpas Patch] Metoprolol Succinate [Toprol XL] 25 mg PO HS@209912/12/19 04/20/20 History OLANZapine [ZyPREXA] 7.5 mg PO HS@209912/12/19 04/20/20 History Ondansetron [Zofran] 4 mg PO Q6H PRN 12/12/19 04/20/20 History Propylene Glycol/Peg 400/Pf 1 drop BOTH EYES Q6H 12/12/19 04/20/20 History [Systane 0.3-0.4% Eye Drop] Z-Guard 1 applic TOPICAL Q12H 12/12/19 04/20/20 History cycloSPORINE 0.05% OPHTH SOLN 1 drop BOTH EYES BID@00,209912/12/19 04/20/20 History [Restasis] oxyCODONE-APAP 7.5-325MG [Percocet 0.5 tab PO Q8H PRN #5 tab 12/12/19 04/20/20 Rx 7.5-325 mg] Fluticasone Propionate [Flovent 1 puff INHALATION RT-BID@0900,209904/20/20 04/20/20 History Hfa 220 mcg] Furosemide [Lasix] 40 mg PO DAILY@89904/20/20 04/20/20 History Lactulose [Cephulac] 20 gm PO BID@0900,209904/20/20 04/20/20 History Allergies Allergy/AdvReac Type Severity Reaction Status Date / Time aspirin Allergy Anaphylaxis Verified 04/20/20 16:29 caffeine Allergy CREATES Verified 04/20/20 16:29 TOO MUCH STOMACH ACID celecoxib [From Celebrex] Allergy Rash/Hives Verified 04/20/20 16:29 codeine Allergy Anaphylaxis Verified 04/20/20 16:29 doxycycline Allergy Unknown Verified 04/20/20 16:29 hydrocodone bitartrate Allergy Unknown Verified 04/20/20 16:29 [From Clemons] milk Allergy Unknown Verified 04/20/20 16:29 Penicillins Allergy Rash/Hives Verified 04/20/20 16:29 rofecoxib [From Vioxx] Allergy Rash/Hives Verified 04/20/20 16:29 clarithromycin [From Biaxin] AdvReac Nausea Verified 04/20/20 16:29 clindamycin AdvReac Nausea Verified 04/20/20 16:29 levofloxacin [From Levaquin] AdvReac Nausea Verified 04/20/20 16:29 Morpholine Analogues AdvReac Confusion Verified 04/20/20 16:29 ranitidine HCl [From Zantac] AdvReac Rash/Hives Verified 04/20/20 16:29 Physical Examination - Vital Signs Vital Signs: Vital Signs Temp Pulse Resp BP Pulse Ox 04/24/20 12:00 72 04/24/20 08:00 97.9 F 89 160/70 97 04/24/20 03:45 98.8 F 130 H 18 139/82 98 04/24/20 01:24 100 18 04/24/20 00:00 98.8 F 100 18 166/80 95 04/23/20 20:00 98.4 F 110 H 18 172/81 94 L Intake and Output 04/24/20 04/24/20 04/24/20 06:59 14:59 22:59 Intake Total 690 100 Output Total 625 Balance 65 100 Intake: Intake, IV Titration 450 100 Amount Meropenem 1 gm In Sodium 100 100 Chloride 0.9% 100 ml @ 200 mls/hr IVPB ONCE ONE Rx#:[id number] Sodium Chloride 0.9% 1, 250 000 ml @ 50 mls/hr IV . Q20H [facility] Rx#:[id number] metroNIDAZOLE-NS PMX 500 100 mg In Saline 1 100ml.bag @ 100 mls/hr IVPB Q8HR [facility] Rx#:[id number] Oral 240 Output: Urine 625 Other: Voiding Method Indwelling Catheter Indwelling Catheter Weight 58 kg GENERAL: The patient is lying in bed and seems in distress. CHEST: The heart rate is regular rate rhythm. No murmurs to auscultation. LUNG: Clear to auscultation bilaterally no wheezing noted throughout. Not labored breathing. ABDOMEN/GI: Abdomen is distended and bowel sound sounds mild hypoactive. NEUROLOGICAL: Higher mental function: The patient is awake but not responding or following commands. She kept on saying "Ouch, Ouch". Cranial nerves: The primary gaze is midline. The pupils are round, equal and reactive to light. Visual valdes could not be assessed because of patient condition. Could not assess EOM since lack of cooperation. No facial weakness. Could not assess rest of cranial nerves because of patient condition. Motor: Gait is deferred because of lack of cooperation. The strength is limited but was able to move bilateral upper extremities above gravity briefly and kept on saying ouch when moving any extremities. Tone is increased throughout. Cerebellum: Could not assess. Sensation: Could not assess. Reflexes (right/left): 2+ throughout except ankles are 1+ bilaterally. Results - Laboratory Findings CBC and BMP: 04/24/20 08:08 04/24/20 07:51 Abnormal Lab Findings: Abnormal Labs 04/20/20 04/20/20 04/20/20 14:57 14:57 14:57 WBC RBC Hgb Neutrophils # 8.1 H Lymphocytes # 0.9 L D-Dimer Sodium 130 L Potassium 5.8 H Chloride 92 L Carbon Dioxide BUN 69 H Creatinine 1.73 H Glucose 113 H Calcium Albumin Amylase <30 L Lipase 11 L Urine Appearance Cloudy H Urine Protein Trace H Urine Nitrite Positive H Ur Leukocyte Esterase Large H Urine WBC 121 H Urine WBC Clumps Few H Urine Bacteria Moderate H Urine Mucus Rare H Coronavirus (PCR) 04/20/20 04/20/20 04/20/20 18:13 19:00 19:00 WBC RBC Hgb Neutrophils # 7.8 H Lymphocytes # 0.9 L D-Dimer Sodium 133 L Potassium Chloride Carbon Dioxide BUN 60 H Creatinine 1.52 H Glucose 103 H Calcium 8.1 L Albumin 3.4 L Amylase Lipase Urine Appearance Urine Protein Urine Nitrite Ur Leukocyte Esterase Urine WBC Urine WBC Clumps Urine Bacteria Urine Mucus Coronavirus (PCR) Detected A 04/21/20 04/21/20 04/22/20 06:36 06:36 13:55 WBC RBC Hgb Neutrophils # 9.2 H Lymphocytes # 0.4 L D-Dimer 1.06 H Sodium 135 L Potassium Chloride Carbon Dioxide 21 L BUN 46 H Creatinine 1.06 H Glucose Calcium Albumin 3.4 L Amylase Lipase Urine Appearance Urine Protein Urine Nitrite Ur Leukocyte Esterase Urine WBC Urine WBC Clumps Urine Bacteria Urine Mucus Coronavirus (PCR) 04/23/20 04/23/20 04/24/20 07:06 07:06 07:51 WBC 14.7 H RBC 3.77 L Hgb Neutrophils # 13.3 H Lymphocytes # 0.6 L D-Dimer Sodium 148 H Potassium 3.2 L Chloride 110 H 113 H Carbon Dioxide 16 L 20 L BUN 21 H 25 H Creatinine 1.12 H Glucose 128 H 122 H Calcium Albumin Amylase Lipase Urine Appearance Urine Protein Urine Nitrite Ur Leukocyte Esterase Urine WBC Urine WBC Clumps Urine Bacteria Urine Mucus Coronavirus (PCR) 04/24/20 08:08 WBC 15.7 H RBC 3.52 L Hgb 11.0 L Neutrophils # 13.9 H Lymphocytes # 0.7 L D-Dimer Sodium Potassium Chloride Carbon Dioxide BUN Creatinine Glucose Calcium Albumin Amylase Lipase Urine Appearance Urine Protein Urine Nitrite Ur Leukocyte Esterase Urine WBC Urine WBC Clumps Urine Bacteria Urine Mucus Coronavirus (PCR) Assessment and Plan Assessment: This is an 85-year-old woman with multiple medical problems that presented to the hospital with abdominal pain and constipation. Encephalopathy due to metabolic abnormality (MICHAEL, hypernatremia and incarcerated large ventral hernia) Dysphagia unknow exact cause. Possible due to abdominal pain with incarcernation leading to dysphagia Hypernatremia due to dehydration History of dementia Acute kidney injury Acute Large right lateral abdominal wall hernia with incarceration. Leukocytosis due to acute large right lateral abdominal wall hernia with incarcernation Hyperkalemia resolved. History of Sjogren syndrome History of coronary artery disease, non-ischemic cardiomyopathy History of hypertension History of rectal cancer status post anterior resection with colostomy placement Plan: Guarding the patient altered mentation according to the the she has been responding for sometimes not sure exactly if she has any acute mentation change. Ordered TSH, thiamine B12, folate, ammonia level. I'll order an EEG. The EEG we'll not be done today since there is no astro technician. I'll not start the patient on the antiepileptic drug unless there is a epileptiform discharge or seizure on EEG. Regarding the dysphagia again the patient has no focal facial weakness and was moving bilateral upper extremities symetrically and that her neurological exam is limited because of the patient's pain and unknown the patient's baseline. This dysphagia could be because of the incarceration of the abdomen possibly. Regarding getting an MRI the brain to rule out a stroke according to the nurse the patient and would not be able to handle the MRI because of her acute pain. Physical therapy, occupational therapy and speech therapy are consulted [place] patient is currently on nectar thick liquids. Surgery team are on board pending for patient to have surgery We'll defer the rest of the medical management to the primary team. Cardiology and nephrology team are also on board. The plan was discussed with the patient's nurse. Thank you for the consultation. Joselito Andrade MD Neuro-Hospitalist Time with Patient: Greater than 30
[2020-04-24] MEDS: AMMONIUM LACTATE 12% LOTION 225 GM BTL TOPICAL SCH (20:05)
[2020-04-24] MEDS: OLANZapine 7.5 MG TAB PO SCH (20:05)
[2020-04-25] MEDS: DEXTROSE 5% IN WATER 500 ML IV SCH ×3 (01:04→16:34)
[2020-04-25] MEDS: metroNIDAZOLE-NS PMX 500 MG in SALINE 1 100ML.BAG IVPB SCH ×3 (01:05→16:29)
[2020-04-25] MEDS: MEROPENEM 1 GM in SODIUM CHLORIDE 0.9% 100 ML IVPB SCH ×2 (04:00→18:59)
[2020-04-25] MEDS: DILTIAZEM 125 MG in SODIUM CHLORIDE 0.9% 100 ML IV SCH ×2 (04:01→13:11)
--- NOTE | 2020-04-25 08:36 | P.PN ---
Subjective Patient is seen in follow-up for acute kidney injury. Renal function slightly worse from diuretics - creatinine 1.12 as of yesterday. Patient is not responding to verbal commands but is awake. She is maintained on Cardizem drip for A. fib. Oral intake is poor. She is receiving D5W for hypernatremia. Vital signs are stable. General: The patient appeared well nourished and normally developed. HEENT: Head exam is unremarkable. Neck is without jugular venous distension. LUNGS: Breath sounds decreased. HEART: Regular rate and rhythm. ABDOMEN: Soft, nontender. Colostomy noted. EXTREMITITES: Trace edema. Objective - Vital Signs Vital signs: Vital Signs Temp 97.2 F L 04/25/20 04:00 Pulse 90 04/25/20 04:00 Resp 22 04/25/20 04:00 BP 148/89 04/25/20 04:00 Pulse Ox 95 04/25/20 04:00 Intake & Output 04/24/20 04/25/20 04/25/20 18:59 06:59 18:59 Intake Total 515 580 170 Output Total 100 300 300 Balance 415 280 -130 Weight 63 kg Intake: Intake, IV Titration 225 580 Amount Dextrose 5% in Water 1, 480 000 ml @ 60 mls/hr IV . [id number] [facility] Rx#:[id number] Diltiazem 125 mg In 125 Sodium Chloride 0.9% 100 ml @ 10 MG/HR 10 mls/hr IV .[id number] [facility] Rx#: [id number] Meropenem 1 gm In Sodium 100 Chloride 0.9% 100 ml @ 200 mls/hr IVPB ONCE ONE Rx#:[id number] Meropenem 1 gm In Sodium 100 Chloride 0.9% 100 ml @ 33 .3 mls/hr IVPB Q12H [facility] Rx#:[id number] Oral 290 170 Output: Urine 100 300 300 Other: Voiding Method Indwelling Catheter Indwelling Catheter # Voids 0 - Labs CBC & Chem 7: 04/24/20 08:08 04/24/20 07:51 Labs: Abnormal Lab Results - Last 24 Hours (Table) 04/24/20 Range/Units 08:08 WBC 15.7 H (3.8-10.6) k/uL RBC 3.52 L (3.80-5.40) m/uL Hgb 11.0 L (11.4-16.0) gm/dL Neutrophils # 13.9 H (1.3-7.7) k/uL Lymphocytes # 0.7 L (1.0-4.8) k/uL Assessment and Plan Plan: Assessment: 1. Acute kidney injury mostly prerenal secondary to hemodynamic instability and diuresis. Creatinine 1.12 as of yesterday. She also received IV contrast dye on 04/22/2020. 2. UTI with urine culture positive for providencia maintained on antibiotics. 3. Metabolic acidosis secondary to acute kidney injury and IV fluids. Maint ained on oral bicarb. Better. 4. Hypernatremia secondary to lack of oral water intake. Currently on D5W. 5. Covid-19 infection. Currently on 2 L cannula. 6. Benign hypertension. Stable. 7. Volume overload. 8. Hypokalemia from poor intake and diuretics. Magnesium normal. 9. A. fib with RVR maintained on Cardizem drip. Plan: Maintain D5W. Lasix was stopped yesterday. Repeat chest x-ray. Follow-up morning labs. Continue to monitor renal function and urine output.
[2020-04-25] MEDS: FLUTICASONE 220 MCG INHALER INHALATION SCH ×2 (08:55→18:54)
--- NOTE | 2020-04-25 09:30 | XR ---
EXAMINATION TYPE: XR chest 1V DATE OF EXAM: 04/25/2020 COMPARISON: 04/22/2020 INDICATION: Short of breath TECHNIQUE: Single frontal view of the chest is obtained. FINDINGS: The heart size is upper limits of normal. The pulmonary vasculature is somewhat prominent. Mild increased lung markings may be present. This more focal left lower lobe. There may be some impro vement from comparison. Vertebral plasty is within the mid thoracic spine and upper lumbar spine. Scoliosis is present. IMPRESSION: 1. Appears to be some improving left lower lobe infiltrate. Scattered infiltrates are present bilater ally. There is some prominence of the heart and pulmonary vasculature. Clinical correlation for conge stive heart failure is recommended. Atypical pulmonary edema could be considered. Atypical pneumonia is within the differential.
[2020-04-25 10:02] LABS: Calcium 8.9 mg/dL (8.4-10.2); Magnesium 1.9 mg/dL (1.6-2.3); Potassium 3.5 mmol/L (3.5-5.1)
[2020-04-25] MEDS: PANTOPRAZOLE 40 MG/10 ML VIAL IVP SCH (10:32)
[2020-04-25] MEDS: cycloSPORINE 0.05% OPHTH 0.4 ML DROPERETTE BOTH EYES SCH ×2 (10:39→21:34)
[2020-04-25] MEDS: hydrALAZINE HCL 25 MG TAB PO SCH ×3 (10:40→21:32)
[2020-04-25] MEDS: METOPROLOL SUCCINATE (ER) 25 MG TAB.ER.24H PO SCH ×2 (10:40→21:32)
[2020-04-25] MEDS: ESCITALOPRAM 10 MG TAB PO SCH (10:41)
[2020-04-25] MEDS: SODIUM BICARBONATE TAB 650 MG TAB PO SCH ×3 (10:41→21:32)
[2020-04-25] MEDS: ENOXAPARIN 40 MG/0.4 ML SYRINGE SQ SCH (10:46)
--- NOTE | 2020-04-25 12:18 | P.PN ---
Subjective Progress Note Date: 04/25/20 This is an 85-year-old female patient of Dr. Garcia and Dr. Pulido with past medical history of asthma, CAD with ischemic cardiomyopathy, previous history of lung cancer post resection who is known to have severe lower back pain, history of Klebsiella pneumoniae ESBL urinary tract infection, memory impairment, rectal cancer post low anterior resection with colostomy placement and she has had her stoma moved from one side to the other times to with significant peristomal hernia, patient developed to have a significant abdominal pain as well as constipation over the last few days at [facility] at that time she was given a Dulcolax suppository through the stoma and she was started on lactulose 30 g orally twice every day patient has been complaining of increased abdominal pain and distention not able to have a good BM through the stoma, an x-ray was done over there and that showed nonobstructive gas pattern with significant stool buildup, patient today was having increased amount of pain associated with nausea and not able to eat or drink she was dehydrated as well has not been eating much over the last few days, she was directed to go to the emergency department at [facility] where she was found to have an acute kidney injury as well a hyperkalemia, patient underwent CT abdomen and pelvis without contrast that showed a large right side abdominal wall ventral hernia that contains multiple loops of the small bowel hernia measures about 612 cm the opening is 5.5 cm the small bowel measures up to 3.5 cm in diameter there was incarcerated in and some mildly dilated loops of small bowel consistent with partial mechanical obstruction related to the hernia, patient was started on IV fluid as well as IV antibiotic, and surgical consultation was obtained from and had a long conversation with the emergency room physician on the complexity of the case and if the patient is not a candidate for any surgical intervention at [facility] she will need to be transferred to [facility], this was discussed with her over the phone. 04/21: Patient sitting up in bed in no apparent distress, she appears to be a bit short of breath, her IV fluids were decreased to 75 mL an hour, we'll monitor her input and output and daily weight, she was seen in consultation by cardiology in preparation for surgical intervention will be planned for tomorrow morning, I spoke general surgery and they feel that the patient can the served here for a better quality of life, and there is no need for the patient be transferred to a tertiary care center, cardiology consultation was obtained, echocardiogram will be done, EKG was done also continue beta gume in the form of metoprolol 25 mg orally twice every day, monitor the patient very closely at this time hold off ANGELICA inhibitor due to her kidney function, nephrology seen the patient as well and she seems to be doing better. 04/22: Patient is laying down in bed in minimal respiratory distress, she did receive 40 mg Lasix earlier today because of expiratory wheezes and increased shortness of breath, portable chest x-ray and abdominal x-ray was obtained, we will hold off any surgery at this time until obtaining the result of the x-ray patient does have a good stool output and her stoma at this time, echo care gram still pending at the time of dictation, I believe the patient needs to be monitored for another 24 hours before any surgical intervention. 04/23: Patient known to have mental status changes. CAT scan of the brain ordered which revealed only chronic age-related changes with chronic small vessel ischemia. CTA of the chest done yesterday revealed no pulmonary embolism. T here is new bilateral pleural effusions and pulmonary infiltrates and atelectasis. Heart appeared increased in size with probable congestive heart failure. Large pulmonary arteries consistent with pulmonary hypertension unchanged. Multiple old thoracic compression fractures. New compression frac ture of T4. Patient is afebrile, heart rate 114, blood pressure 182/87, pulse ox 92% on room air. CBC 14.7, hemoglobin 12. Sodium 143, potassium 3.8, chloride 110, CO2 16, BUN 21 and creatinine 0.86. Urine culture is positive for Providencia stuartii. Rocephin will be discontinued and patient started on meropenem 1 g IV piggyback every 8 hours. Echocardiogram reveals EF of 55-60% with mild concentric left ventricular hypertrophy, mild to moderate mitral regurgitation, [id number] tricuspid regurgitation, mild to moderate pulmonary hypertension. 2: Patient continues to have increased confusion and noted to have difficulty swallowing. Speech therapy has evaluated with recommendations. Consult has also been added for neurology for dysphagia. Medications reviewed and patient r esumed on Zyprexa and Lexapro. Patient is afebrile, heart rate 89, blood pressure 160/70, pulse ox 97% on 2 L nasal cannula. There is slight and there is a slight rise in her leukocytosis of 15.7. Hemoglobin is 11. Sodium is 148 potassium 3.2, chloride 113, CO2 20, BUN 25 and creatinine 1.12. IV fluids transition to dextrose 5% at 60 mL/h. Cardiology ordered Cardizem drip for episode of atrial fibrillation. She is continued on IV antibiotics with meropenem and Flagyl. Patient's will be contacted via phone and updated. Patient is not stable at this time for surgical intervention. 2: Patient has been seen by neurology for metabolic encephalopathy. X-ray of the chest reveals improving left lower lobe infiltrate, scattered infiltrates still present bilaterally. Prominence of the heart and pulmonary vasculature. Correlate for heart failure, atypical pulmonary edema could be considered, atypical pneumonia is within differential. Sodium 147, potassium 3.5, chloride 113, BUN 26 and creatinine 1.05. Ammonia level less than 9. TSH 0.490. Nephrology has continued D5W. Patient is unresponsive to questions, not verbalizing, staring blankly. is at bedside. Discussed CODE STATUS with the patient's and he is unable to make a decision at this time oth er than to keep her full code. MRI of the brain ordered to rule out brainstem infarct. General surgery continues to follow for the large parastomal hernia with incarceration, to be done if patient is medically stable. Objective - Vital Signs Vital signs: Vital Signs Temp 97.2 F L 04/25/20 04:00 Pulse 90 04/25/20 04:00 Resp 22 04/25/20 04:00 BP 148/89 04/25/20 04:00 Pulse Ox 95 04/25/20 04:00 Intake & Output 04/24/20 04/25/20 04/25/20 18:59 06:59 18:59 Intake Total 515 580 170 Output Total 100 300 300 Balance 415 280 -130 Weight 63 kg 63 kg Intake: Intake, IV Titration 225 580 Amount Dextrose 5% in Water 1, 480 000 ml @ 60 mls/hr IV . [id number] [facility] Rx#:[id number] Diltiazem 125 mg In 125 Sodium Chloride 0.9% 100 ml @ 10 MG/HR 10 mls/hr IV .[id number] [facility] Rx#: [id number] Meropenem 1 gm In Sodium 100 Chloride 0.9% 100 ml @ 200 mls/hr IVPB ONCE ONE Rx#:[id number] Meropenem 1 gm In Sodium 100 Chloride 0.9% 100 ml @ 33 .3 mls/hr IVPB Q12H [facility] Rx#:[id number] Oral 290 170 Output: Urine 100 300 300 Other: Voiding Method Indwelling Catheter Indwelling Catheter # Voids 0 - Exam Review of Systems Constitutional: Reports anorexia, Reports fatigue, Reports lethargy, Reports malaise, Reports weakness, Reports weight loss Eyes: denies blurred vision, denies bulging eye, denies decreased vision Ears: bilateral: decreased hearing Ears, nose, mouth and throat: Denies dysphagia, Denies neck lump, Denies sore throat Cardiovascular: Denies chest pain, Denies decreased exercise tolerance, Denies dyspnea on exertion, Denies lightheadedness, Denies rapid heart beat, Denies shortness of breath, Denies syncope Respiratory: Denies congestion, Denies cough with sputum, Denies home oxygen, Denies sleep apnea, Denies snoring, Denies wheezing Gastrointestinal: Reports abdominal pain, Reports bloating, Reports constipation, Reports early satiety, Reports loss of appetite, Reports nausea, Reports vomiting Genitourinary: Denies dysuria, Denies nocturia Menstruation: Reports postmenopausal Musculoskeletal: Reports atrophy, Reports frequent falls, Reports gait dysfunction, Reports loss of height, Reports low back pain, Reports muscle weakness Musculoskeletal: absent: ankle pain, ankle stiffness, ankle swelling, elbow pain, elbow stiffness, elbow swelling, foot pain, foot stiffness, foot swelling, hand pain, hand stiffness, hand swelling, hip pain, hip stiffness, hip swelling, knee pain, knee stiffness, knee swelling, shoulder pain, shoulder stiffness, shoulder swelling, wrist pain, wrist stiffness, wrist swelling Integumentary: Denies pruritus, Denies rash Neurological: Reports balance difficulties, Reports gait dysfunction, Reports weakness, noted worsening mental status Psychiatric: Denies anxiety, Denies depression Physical examination HEENT: Head is atraumatic, normocephalic, pupils were equal round reactive to light and accommodation, extraocular muscle movement were intact, sclera nonicteric conjunctiva are pale, mucous membranes of mouth are dry. Neck: Supple, no JVD, decreased carotid upstroke bilaterally. Chest: There is significant kyphosis present, decreased breath sounds at the bases, few rhonchi, no expiratory wheezes, no chest wall tenderness, no intercostal retractions. Heart: First heart sound is depressed, second heart sounds normal, there is systolic ejection murmur 2/6 located in the left border. Abdomen: Soft and distended moderate tenderness of the right lower quadrant, there is peristomal hernia with significant ventral hernia in that area, associated with significant tenderness to palpation, positive for guarding, positive bowel sounds. Stoma bag is empty. Extremities: There is trace edema, no calf tenderness, dorsalis pedis +1 bilaterally. Neurologic examination: Patient is awake and unresponsive - Labs CBC & Chem 7: 04/26/20 07:39 04/26/20 07:39 Labs: Abnormal Lab Results - Last 24 Hours (Table) 04/25/20 Range/Units 08:59 Sodium 147 H (137-145) mmol/L Chloride 113 H (98-107) mmol/L BUN 26 H (7-17) mg/dL Creatinine 1.05 H (0.52-1.04) mg/dL Glucose 151 H (74-99) mg/dL Assessment and Plan Assessment: Assessment and plan: 1. Large right lateral abdominal wall hernia with incarceration. Continue the patient on IV fluid in the form of normal saline at 50 mL an hour, monitor input and output and daily weight, pain control, this is a high-risk patient, we'll continue the patient on IV antibiotic meropenem 1 g IV piggyback every 8 hours, metronidazole 500 mg IV piggyback every 8 hours, continue current pain management, monitor the patient respiratory status. 2. Acute kidney injury due to poor oral intake of fluid and acute tubular necrosis. Continue IV fluid resuscitation normal saline 50 mL an hour, monitor input and output and daily weight, check the patient CMP tomorrow morning. 3. Hyperkalemia likely related to acute kidney injury. Continue IV fluid resuscitation and repeat her potassium level in the next few hours. 4. Metabolic encephalopathy secondary to acute kidney injury as well as incarcerated large ventral hernia. Continue IV fluid, continue IV antibiotic, monitor the patient very closely. Much better 5. Chronic kidney failure CKD stage II currently with acute kidney injury continue IV fluid resuscitation repeat CMP tomorrow morning. 6. CAD and non-ischemic cardiomyopathy and chronic diastolic heart failure with ejection fraction of 50%. We will maintain the patient on metoprolol 7. Hypertension and hypertensive cardiovascular disease. Continue metoprolol, hold lisinopril for now. 8. Sjogren syndrome. We'll hold off Salagen 9. Anemia of chronic medical illnesses. Continue to monitor the patient's CBC over the next 24 hours. 10. Chronic pain syndrome. We will hold off oral medication start the patient on IV pain management. 11. Overactive bladder. Discontinue Detrol. 12. 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 Appears to be at baseline. 13. History of rectal cancer post-low anterior resection with colostomy placement . 14. DVT prophylaxis. Start the patient on Lovenox 30 mg subcutaneously every 24 hours. 15. GI prophylaxis. Protonix 40 mg IV push every 24 hours. 16. Recurrent depression. Continue Zyprexa and Lexapro. 17. Acute urinary tract infection. Discontinue Rocephin and start meropenem 1 g IV piggyback every 8 hours.. 18. Valvular heart disease with [id number] mitral regurgitation, [id number] tricuspid regurgitation and mild to moderate pulmonary hypertension. 19. Hypernatremia. IV fluids changed to D5 at 50 mL per hour. 20. Sinus tachycardia. Patient continued on Cardizem drip. 21. Metabolic encephalopathy worsening. MRI of the brain ordered. CODE STATUS: Full code Guarded prognosis.
[2020-04-25] MEDS: hydrALAZINE HCL 20 MG/ML 1 ML VIAL IVP PRN (13:25)
--- NOTE | 2020-04-25 14:28 | P.PN ---
Subjective Progress Note Date: 04/25/20 He was seen at bedside and she is about the same today compared to yesterday. There has not been any improvement. She is not verbalizing following commands. There is no clinical seizure activity seen. She continues to be moaning in pain. Objective - Vital Signs Vital signs: Vital Signs Temp 98.8 F 04/25/20 10:20 Pulse 100 04/25/20 10:20 Resp 18 04/25/20 10:20 BP 179/80 04/25/20 10:20 Pulse Ox 97 04/25/20 10:20 Intake & Output 04/24/20 04/25/20 04/25/20 18:59 06:59 18:59 Intake Total 515 580 295 Output Total 100 300 300 Balance 415 280 -5 Weight 63 kg 63 kg Intake: Intake, IV Titration 225 580 125 Amount Dextrose 5% in Water 1, 480 000 ml @ 60 mls/hr IV . [id number] [facility] Rx#:[id number] Diltiazem 125 mg In 125 125 Sodium Chloride 0.9% 100 ml @ 10 MG/HR 10 mls/hr IV .[id number] [facility] Rx#: [id number] Meropenem 1 gm In Sodium 100 Chloride 0.9% 100 ml @ 200 mls/hr IVPB ONCE ONE Rx#:[id number] Meropenem 1 gm In Sodium 100 Chloride 0.9% 100 ml @ 33 .3 mls/hr IVPB Q12H [facility] Rx#:[id number] Oral 290 170 Output: Urine 100 300 300 Other: Voiding Method Indwelling Catheter Indwelling Catheter Indwelling Catheter # Voids 0 - Exam GENERAL: The patient is lying in bed and seems in distress. NEUROLOGICAL: Higher mental function: The patient is awake but not responding or following commands. She kept on saying "Ouch, Ouch". Cranial nerves: The primary gaze is midline. The pupils are round, equal and reactive to light. Visual valdes could not be assessed because of patient condition. Could not assess EOM since lack of cooperation. No facial weakness. Could not assess rest of cranial nerves because of patient condition. Motor: Gait is deferred because of lack of cooperation. The strength is limited but was able to move bilateral upper extremities above gravity briefly and kept on saying ouch when moving any extremities. Tone is increased throughout. Cerebellum: Could not assess. Sensation: Could not assess. Reflexes (right/left): 2+ throughout except ankles are 1+ bilaterally. - Labs CBC & Chem 7: 04/24/20 08:08 04/25/20 08:59 Labs: Abnormal Lab Results - Last 24 Hours (Table) 04/24/20 04/25/20 Range/Units 17:35 08:59 Sodium 147 H (137-145) mmol/L Chloride 113 H (98-107) mmol/L BUN 26 H (7-17) mg/dL Creatinine 1.05 H (0.52-1.04) mg/dL Glucose 151 H (74-99) mg/dL Vitamin B12 1258.0 H (200.0-944.0) pg/mL Assessment and Plan Assessment: This is an 85-year-old woman with multiple medical problems that presented to the hospital with abdominal pain and constipation. Acute Encephalopathy due to multifactorial: metabolic abnormality (MICHAEL, hypernatremia and incarcerated large ventral hernia) and underlying infection from COVID-19 and UTI Dysphagia unknow exact cause. Possibly due to above. Hypernatremia due to dehydration History of dementia Acute kidney injury Acute Large right lateral abdominal wall hernia Leukocytosis due to acute large right lateral abdominal wall hernia Hyperkalemia resolved. Acute COVID-19 infection Acute Urinary tract infection History of Sjogren syndrome History of coronary artery disease, non-ischemic cardiomyopathy History of hypertension History of rectal cancer status post anterior resection with colostomy placement Plan: TSH: 1258, Vitamin B12: 1258 (considered normal), folate: pending, ammonia level: <9 Pending EEG to be done. I'll not start the patient on the antiepileptic drug unless there is a epileptiform discharge or seizure on EEG. Regarding the dysphagia again the patient has no focal facial weakness and was moving bilateral upper extremities symetrically and that her neurological exam is limited because of the patient's pain and unknown the patient's baseline. This dysphagia could be because of the incarceration of the abdomen possibly. Regarding getting an MRI the brain to rule out a stroke according to the nurse the patient and would not be able to handle the MRI because of her acute pain. Physical therapy, occupational therapy and speech therapy are consulted. Patient is currently on nectar thick liquids. Surgery team are on board pending for patient to have surgery We'll defer the rest of the medical management to the primary team. Cardiology and nephrology team are also on board. The plan was discussed with the patient's nurse and nurse practitioner from the primary team. UPDATE: I contacted [facility] and the like spoke with Carla who was taking care of the patient while the at the facility and she stated that the patient was alert oriented 3 according to her. She stated that the patient would have episodes of confusion but for the most part she is alert oriented 3 and would have a normal conversation. She is at 2 person assist. She was having no issues with swallowing. She was stiff throughout all extremities which is her baseline and there is no focal deficit according to her. MRI the brain is ordered by the primary team to rule out brain stem stroke. Joselito Andrade MD Neuro-Hospitalist Time with Patient: Less than 30
--- NOTE | 2020-04-25 16:13 | P.PN ---
Progress Note - Text Progress Note Date: 04/25/20 The patient still remains a encephalopathic. On exam vital signs appear stable. Abdomen soft. There is a large parastomal hernia. There is some stool in the colostomy. The patient is at a higher surgical risk. She will consider for repair of her parastomal hernia 1 underlying medical conditions have been resolved and optimize..
--- NOTE | 2020-04-25 18:08 | EEG ---
ELECTROENCEPHALOGRAM REPORT DATE OF SERVICE: 04/25/2020. CLINICAL HISTORY: This is an 85-year-old woman with altered mental status. She is COVID-19 positive. The video EEG is obtained to evaluate for seizure and epileptiform activity. RELEVANT MEDICATION: The patient is not on any antiepileptic drugs. EEG TYPE: This EEG was done per [facility] guidelines for COVID-19 patients using the 10/20 electrode placement system. DESCRIPTION: Only wakefulness is obtained. There is no posterior-dominant rhythm over bilateral hemispheres. Background consists of moderate voltage of 4.5 to 5.5 hertz activity. There is no physiological stage II sleep. There is no focal slowing noted over the bilateral hemispheres. Interictal and ictal are none. ACTIVATION PROCEDURE: Photic stimulation and hyperventilation are not performed because of COVID-19. CLINICAL INTERPRETATION: This is an abnormal routine EEG. The background slowing is suggestive of moderate to severe encephalopathy. There are no focal slowing, epileptiform discharges or seizures on this study. Clinical correlation is recommended. BETSY / TEVINN: [id number] / MANOLO
[2020-04-25] MEDS: AMMONIUM LACTATE 12% LOTION 225 GM BTL TOPICAL SCH (21:33)
[2020-04-25] MEDS: OLANZapine 7.5 MG TAB PO SCH (21:33)
[2020-04-25] MEDS: LACTULOSE 20 GM/30 ML CUP PO SCH (21:34)
[2020-04-26] MEDS: metroNIDAZOLE-NS PMX 500 MG in SALINE 1 100ML.BAG IVPB SCH ×3 (00:13→17:20)
[2020-04-26] MEDS: DEXTROSE 5% IN WATER 500 ML IV SCH ×4 (00:16→17:22)
[2020-04-26] MEDS: MEROPENEM 1 GM in SODIUM CHLORIDE 0.9% 100 ML IVPB SCH ×2 (04:04→18:39)
[2020-04-26] MEDS: DILTIAZEM 125 MG in SODIUM CHLORIDE 0.9% 100 ML IV SCH ×2 (07:04→18:40)
[2020-04-26] MEDS: FLUTICASONE 220 MCG INHALER INHALATION SCH ×2 (07:25→16:50)
[2020-04-26 08:37] LABS: Albumin 3.1 g/dL (3.5-5.0); Calcium 8.5 mg/dL (8.4-10.2); Magnesium 1.9 mg/dL (1.6-2.3); Potassium 3.7 mmol/L (3.5-5.1); Total Bilirubin 0.5 mg/dL (0.2-1.3); Total Protein 6.3 g/dL (6.3-8.2)
[2020-04-26 09:01] LABS: Basophils # (A) 0.1 k/uL (0-0.2); Basophils % (A) 0 %; Eosinophils # (A) 0.2 k/uL (0-0.7); Eosinophils % (A) 1 %; HCT 35.9 % (34.0-46.0); HGB 11.2 gm/dL (11.4-16.0); Hypochromasia Slight; Lymphocytes # (A) 0.9 k/uL (1.0-4.8); Lymphocytes % (A) 4 %; MCH 30.8 pg (25.0-35.0); MCHC 31.1 g/dL (31.0-37.0); MCV 99.2 fL (80.0-100.0); Mean Platelet Volume 7.8; Monocytes # (A) 0.8 k/uL (0-1.0); Monocytes % (A) 4 %; Neutrophils # (A) 18.8 k/uL (1.3-7.7); Neutrophils % (A) 90 %; Platelet Count 270 k/uL (150-450); RBC 3.62 m/uL (3.80-5.40); RDW 13.2 % (11.5-15.5); WBC 20.9 k/uL (3.8-10.6)
--- NOTE | 2020-04-26 09:07 | P.PN ---
Subjective Patient is seen in follow-up for acute kidney injury. Renal function better. Sodium stable at 147. Patient is not responding to verbal commands but is awake. She is maintained on Cardizem drip for A. fib. Oral intake is poor. Vital signs are stable. General: The patient appeared well nourished and normally developed. HEENT: Head exam is unremarkable. Neck is without jugular venous distension. LUNGS: Breath sounds decreased. HEART: Regular rate and rhythm. ABDOMEN: Soft, nontender. Colostomy noted. EXTREMITITES: No edema. Objective - Vital Signs Vital signs: Vital Signs Temp 97.8 F 04/26/20 03:51 Pulse 89 04/26/20 03:51 Resp 20 04/26/20 03:51 BP 167/75 04/26/20 03:51 Pulse Ox 98 04/26/20 03:51 Intake & Output 04/25/20 04/26/20 04/26/20 18:59 06:59 18:59 Intake Total 425 125 Output Total 625 100 Balance -200 25 Weight 63 kg 62 kg Intake: Intake, IV Titration 125 125 Amount Diltiazem 125 mg In 125 125 Sodium Chloride 0.9% 100 ml @ 10 MG/HR 10 mls/hr IV .[id number] [facility] Rx#: [id number] Oral 300 Output: Urine 625 100 Other: Voiding Method Indwelling Catheter Indwelling Catheter - Labs CBC & Chem 7: 04/26/20 07:39 04/26/20 07:39 Labs: Abnormal Lab Results - Last 24 Hours (Table) 04/24/20 04/25/20 04/26/20 Range/Units 17:35 08:59 07:39 WBC (3.8-10.6) k/uL RBC (3.80-5.40) m/uL Hgb (11.4-16.0) gm/dL Neutrophils # (1.3-7.7) k/uL Lymphocytes # (1.0-4.8) k/uL Sodium 147 H 147 H (137-145) mmol/L Chloride 113 H 115 H (98-107) mmol/L BUN 26 H 23 H (7-17) mg/dL Creatinine 1.05 H (0.52-1.04) mg/dL Glucose 151 H 123 H (74-99) mg/dL Albumin 3.1 L (3.5-5.0) g/dL Vitamin B12 1258.0 H (200.0-944.0) pg/mL 04/26/20 Range/Units 07:39 WBC 20.9 H (3.8-10.6) k/uL RBC 3.62 L (3.80-5.40) m/uL Hgb 11.2 L (11.4-16.0) gm/dL Neutrophils # 18.8 H (1.3-7.7) k/uL Lymphocytes # 0.9 L (1.0-4.8) k/uL Sodium (137-145) mmol/L Chloride (98-107) mmol/L BUN (7-17) mg/dL Creatinine (0.52-1.04) mg/dL Glucose (74-99) mg/dL Albumin (3.5-5.0) g/dL Vitamin B12 (200.0-944.0) pg/mL Assessment and Plan Plan: Assessment: 1. Acute kidney injury mostly prerenal secondary to hemodynamic instability and diuresis. She also received IV contrast dye on 04/22/2020. Resolved - cr 0.75 today. 2. UTI with urine culture positive for providencia maintained on antibiotics. 3. Metabolic acidosis secondary to acute kidney injury and IV fluids. Maintained on oral bicarb. Better. 4. Hypernatremia secondary to lack of oral water intake. Currently on D5W. 5. Covid-19 infection. Currently on 2 L cannula. 6. Benign hypertension. Stable. 7. Volume overload. s/p diuresis. 8. Hypokalemia from poor intake and diuretics. Magnesium normal. Better. 9. A. fib with RVR maintained on Cardizem drip. Plan: Maintain D5W - increase rate to 100 cc/hr. Lasix was stopped 04/24/20. Continue to monitor renal function and urine output.
[2020-04-26] MEDS: PANTOPRAZOLE 40 MG/10 ML VIAL IVP SCH (10:42)
[2020-04-26] MEDS: ENOXAPARIN 40 MG/0.4 ML SYRINGE SQ SCH (10:44)
[2020-04-26] MEDS: SODIUM BICARBONATE TAB 650 MG TAB PO SCH ×3 (10:44→21:17)
[2020-04-26] MEDS: cycloSPORINE 0.05% OPHTH 0.4 ML DROPERETTE BOTH EYES SCH ×2 (10:44→21:18)
[2020-04-26] MEDS: METOPROLOL SUCCINATE (ER) 25 MG TAB.ER.24H PO SCH ×2 (10:45→21:17)
[2020-04-26] MEDS: ESCITALOPRAM 10 MG TAB PO SCH (10:45)
[2020-04-26] MEDS: hydrALAZINE HCL 25 MG TAB PO SCH ×3 (10:45→21:18)
[2020-04-26] MEDS: LACTULOSE 20 GM/30 ML CUP PO SCH ×2 (10:46→21:18)
--- NOTE | 2020-04-26 11:21 | P.PN ---
Subjective Progress Note Date: 04/26/20 She was seen at bedside and the per the patient nurse she is minimally better today compared to yesterday and she stating yes or no cord to the nurse. There is no seizure activity noticed the by nursing staff. Objective - Vital Signs Vital signs: Vital Signs Temp 97.8 F 04/26/20 03:51 Pulse 89 04/26/20 03:51 Resp 20 04/26/20 03:51 BP 167/75 04/26/20 03:51 Pulse Ox 98 04/26/20 03:51 Intake & Output 04/25/20 04/26/20 04/26/20 18:59 06:59 18:59 Intake Total 425 125 Output Total 625 100 Balance -200 25 Weight 63 kg 62 kg Intake: Intake, IV Titration 125 125 Amount Diltiazem 125 mg In 125 125 Sodium Chloride 0.9% 100 ml @ 10 MG/HR 10 mls/hr IV .[id number] [facility] Rx#: [id number] Oral 300 Output: Urine 625 100 Other: Voiding Method Indwelling Catheter Indwelling Catheter - Exam GENERAL: The patient is lying in bed and seems in distress. NEUROLOGICAL: Higher mental function: The patient is awake and was ablle to state her name. Otherwise she is not verbally responsive. She was following few simple commands (rasing her legs and closing eyes and opening them to command. Other than that she follows no commands. Cranial nerves: The primary gaze is midline. The pupils are round, equal and reactive to light. Visual valdes could not be assessed because of patient con dition. Could not assess EOM since lack of cooperation. No facial weakness bilaterally. Could not assess rest of cranial nerves because of patient condition. Motor: Gait is deferred because of lack of cooperation. The strength is limited on assessment but is moving bilateral upper and lower extremities above gravity. There does not seem to be a focal deficit. Cerebellum: Could not assess. Sensation: Could not assess. Reflexes (right/left): 2+ throughout except ankles are 1+ bilaterally. - Labs CBC & Chem 7: 04/26/20 07:39 04/26/20 07:39 Labs: Abnormal Lab Results - Last 24 Hours (Table) 04/24/20 04/26/20 04/26/20 Range/Units 17:35 07:39 07:39 WBC 20.9 H (3.8-10.6) k/uL RBC 3.62 L (3.80-5.40) m/uL Hgb 11.2 L (11.4-16.0) gm/dL Neutrophils # 18.8 H (1.3-7.7) k/uL Lymphocytes # 0.9 L (1.0-4.8) k/uL Sodium 147 H (137-145) mmol/L Chloride 115 H (98-107) mmol/L BUN 23 H (7-17) mg/dL Glucose 123 H (74-99) mg/dL Albumin 3.1 L (3.5-5.0) g/dL Vitamin B12 1258.0 H (200.0-944.0) pg/mL Assessment and Plan Assessment: This is an 85-year-old woman with multiple medical problems that presented to the hospital with abdominal pain and constipation. Acute Encephalopathy due to multifactorial: metabolic abnormality (MICHAEL, hypernatremia and incarcerated large ventral hernia) and underlying infection from COVID-19 and UTI---slight improvement today comapred to the last two days I had her Dysphagia unknow exact cause and seems due to above. Hypernatremia due to dehydration History of dementia Acute kidney injury--resolved Acute Large right lateral abdominal wall hernia Leukocytosis due to acute large right lateral abdominal wall hernia Hyperkalemia resolved. Acute COVID-19 infection Acute Urinary tract infection History of Sjogren syndrome History of coronary artery disease, non-ischemic cardiomyopathy History of hypertension History of rectal cancer status post anterior resection with colostomy placement Plan: TSH: 1258, Vitamin B12: 1258 (considered normal), folate: pending, ammonia level: <9 EEG 04/25/20: It's an abnormal routine EEG. The back of slowing suggestive of moderate to severe encephalopathy. There are no focal slowing, perform discharges or seizure on EEG. MRI the brain is ordered by the primary team to rule out stroke and is pending to be done. Physical therapy, occupational therapy and speech therapy are consulted. Surgery team are on board and pending for patient to have surgery. We'll defer the rest of the medical management to the primary team. Cardiology and nephrology team are also on board. The plan was discussed with the patient's nurse and primary team nurse practitioner. UPDATE: MRI the brain was performed and was reported as age-related atrophy with confluent chronic appearing periventricular white matter ischemic type changes. There is no acute or subacute stroke upon reviewing the MRI the brain. From a neurology perspective, patient does not have acute or subacute stroke. Her altered mentation and dysphagia is as stated in Assessment. Will follow-up with the patient sporadically. Joselito Andrade MD Neuro-Hospitalist Time with Patient: Less than 30
--- NOTE | 2020-04-26 13:18 | P.PN ---
Subjective Progress Note Date: 04/26/20 CHIEF COMPLAINT: incarcerated parastomal hernia HISTORY OF PRESENT ILLNESS: This is a 85-year-old female with a previous history of diverticulitis and colostomy. Patient has developed a large parastomal h ernia with incarcerated small bowel. She has significant abdominal pain and problems with intermittent obstruction. Patient is followed by cardiology. They have placed on oral Lasix. Patient has been cleared by cardiology. She is currently on IV Cardizem for sinus tachycardia. Patient not taking her oral pain medication. Patient is also followed by neurology due to her mentation. She has MRI of the brain ordered for today. Patient obtunded and laying in bed. Afebrile WBC up at 20.9 PHYSICAL EXAM: VITAL SIGNS: Reviewed. GENERAL: Well-developed in no acute distress. HEENT: No sclera icterus. Extraocular movements grossly intact. Moist buccal mucosa. Head is atraumatic, normocephalic. ABDOMEN: Soft. Large right parastomal hernia. Stool present in colostomy NEUROLOGIC: Obtunded ASSESSMENT: 1. large parastomal hernia with incarcerated small bowel PLAN: -plan for surgery when patient is medically stable -Continue pureed diet Physician [employer] Install[employer] note has been reviewed by physician. Signing provider agrees with the documented findings, assessment, and plan of care. Objective - Vital Signs Vital signs: Vital Signs Temp 97.8 F 04/26/20 03:51 Pulse 89 04/26/20 03:51 Resp 20 04/26/20 03:51 BP 167/75 04/26/20 03:51 Pulse Ox 98 04/26/20 03:51 Intake & Output 04/25/20 04/26/20 04/26/20 18:59 06:59 18:59 Intake Total 425 125 240 Output Total 625 100 Balance -200 25 240 Weight 63 kg 62 kg Intake: Intake, IV Titration 125 125 Amount Diltiazem 125 mg In 125 125 Sodium Chloride 0.9% 100 ml @ 10 MG/HR 10 mls/hr IV .[id number] [facility] Rx#: [id number] Oral 300 240 Output: Urine 625 100 Other: Voiding Method Indwelling Catheter Indwelling Catheter - Labs CBC & Chem 7: 04/26/20 07:39 04/26/20 07:39 Labs: Abnormal Lab Results - Last 24 Hours (Table) 04/26/20 04/26/20 Range/Units 07:39 07:39 WBC 20.9 H (3.8-10.6) k/uL RBC 3.62 L (3.80-5.40) m/uL Hgb 11.2 L (11.4-16.0) gm/dL Neutrophils # 18.8 H (1.3-7.7) k/uL Lymphocytes # 0.9 L (1.0-4.8) k/uL Sodium 147 H (137-145) mmol/L Chloride 115 H (98-107) mmol/L BUN 23 H (7-17) mg/dL Glucose 123 H (74-99) mg/dL Albumin 3.1 L (3.5-5.0) g/dL
--- NOTE | 2020-04-26 13:20 | MR ---
EXAMINATION TYPE: MR brain wo/w con DATE OF EXAM: 04/26/2020 COMPARISON: 04/23/2020 CT brain HISTORY: Mental status changes CONTRAST: Performed utilizing 6.5 mL intravenous Gadavist gadolinium contrast. TECHNIQUE: Multiplanar, multiecho imaging on a 3.0 Mirtha magnet is performed through the brain. Stud y is not performed within 24 hours of arrival to the hospital. The craniovertebral junction is normal. The pituitary is normal. Diffusion-weighted imaging is performed. No abnormal hyperintensity is present to suggest an acute i ntracranial infarct or acute ischemic change. Confluent periventricular white matter changes are present, likely on the basis of chronic white daniel er ischemic change. Ventricles and sulci are mild to prominent for the patient age. No suspicious enhancement is evident. IMPRESSIONS: 1. Age-related atrophy with confluent chronic appearing periventricular white matter ischemic type ch braulio.
--- NOTE | 2020-04-26 14:35 | P.PN ---
Subjective Progress Note Date: 04/26/20 This is an 85-year-old female patient of Dr. Garcia and Dr. Pulido with past medical history of asthma, CAD with ischemic cardiomyopathy, previous history of lung cancer post resection who is known to have severe lower back pain, history of Klebsiella pneumoniae ESBL urinary tract infection, memory impairment, rectal cancer post low anterior resection with colostomy placement and she has had her stoma moved from one side to the other times to with significant peristomal hernia, patient developed to have a significant abdominal pain as well as constipation over the last few days at [facility] at that time she was given a Dulcolax suppository through the stoma and she was started on lactulose 30 g orally twice every day patient has been complaining of increased abdominal pain and distention not able to have a good BM through the stoma, an x-ray was done over there and that showed nonobstructive gas pattern with significant stool buildup, patient today was having increased amount of pain associated with nausea and not able to eat or drink she was dehydrated as well has not been eating much over the last few days, she was directed to go to the emergency department at [facility] where she was found to have an acute kidney injury as well a hyperkalemia, patient underwent CT abdomen and pelvis without contrast that showed a large right side abdominal wall ventral hernia that contains multiple loops of the small bowel hernia measures about 612 cm the opening is 5.5 cm the small bowel measures up to 3.5 cm in diameter there was incarcerated in and some mildly dilated loops of small bowel consistent with partial mechanical obstruction related to the hernia, patient was started on IV fluid as well as IV antibiotic, and surgical consultation was obtained from and had a long conversation with the emergency room physician on the complexity of the case and if the patient is not a candidate for any surgical intervention at [facility] she will need to be transferred to [facility], this was discussed with her over the phone. 04/21: Patient sitting up in bed in no apparent distress, she appears to be a bit short of breath, her IV fluids were decreased to 75 mL an hour, we'll monitor her input and output and daily weight, she was seen in consultation by cardiology in preparation for surgical intervention will be planned for tomorrow morning, I spoke general surgery and they feel that the patient can the served here for a better quality of life, and there is no need for the patient be transferred to a tertiary care center, cardiology consultation was obtained, echocardiogram will be done, EKG was done also continue beta gume in the form of metoprolol 25 mg orally twice every day, monitor the patient very closely at this time hold off ANGELICA inhibitor due to her kidney function, nephrology seen the patient as well and she seems to be doing better. 04/22: Patient is laying down in bed in minimal respiratory distress, she did receive 40 mg Lasix earlier today because of expiratory wheezes and increased shortness of breath, portable chest x-ray and abdominal x-ray was obtained, we will hold off any surgery at this time until obtaining the result of the x-ray patient does have a good stool output and her stoma at this time, echo care gram still pending at the time of dictation, I believe the patient needs to be monitored for another 24 hours before any surgical intervention. 04/23: Patient known to have mental status changes. CAT scan of the brain ordered which revealed only chronic age-related changes with chronic small vessel ischemia. CTA of the chest done yesterday revealed no pulmonary embolism. T here is new bilateral pleural effusions and pulmonary infiltrates and atelectasis. Heart appeared increased in size with probable congestive heart failure. Large pulmonary arteries consistent with pulmonary hypertension unchanged. Multiple old thoracic compression fractures. New compression frac ture of T4. Patient is afebrile, heart rate 114, blood pressure 182/87, pulse ox 92% on room air. CBC 14.7, hemoglobin 12. Sodium 143, potassium 3.8, chloride 110, CO2 16, BUN 21 and creatinine 0.86. Urine culture is positive for Providencia stuartii. Rocephin will be discontinued and patient started on meropenem 1 g IV piggyback every 8 hours. Echocardiogram reveals EF of 55-60% with mild concentric left ventricular hypertrophy, mild to moderate mitral regurgitation, [id number] tricuspid regurgitation, mild to moderate pulmonary hypertension. 2: Patient continues to have increased confusion and noted to have difficulty swallowing. Speech therapy has evaluated with recommendations. Consult has also been added for neurology for dysphagia. Medications reviewed and patient r esumed on Zyprexa and Lexapro. Patient is afebrile, heart rate 89, blood pressure 160/70, pulse ox 97% on 2 L nasal cannula. There is slight and there is a slight rise in her leukocytosis of 15.7. Hemoglobin is 11. Sodium is 148 potassium 3.2, chloride 113, CO2 20, BUN 25 and creatinine 1.12. IV fluids transition to dextrose 5% at 60 mL/h. Cardiology ordered Cardizem drip for episode of atrial fibrillation. She is continued on IV antibiotics with meropenem and Flagyl. Patient's will be contacted via phone and updated. Patient is not stable at this time for surgical intervention. 2: Patient has been seen by neurology for metabolic encephalopathy. X-ray of the chest reveals improving left lower lobe infiltrate, scattered infiltrates still present bilaterally. Prominence of the heart and pulmonary vasculature. Correlate for heart failure, atypical pulmonary edema could be considered, atypical pneumonia is within differential. Sodium 147, potassium 3.5, chloride 113, BUN 26 and creatinine 1.05. Ammonia level less than 9. TSH 0.490. Nephrology has continued D5W. Patient is unresponsive to questions, not verbalizing, staring blankly. is at bedside. Discussed CODE STATUS with the patient's and he is unable to make a decision at this time oth er than to keep her full code. MRI of the brain ordered to rule out brainstem infarct. General surgery continues to follow for the large parastomal hernia with incarceration, to be done if patient is medically stable. 04/26: MRI of the brain reveals age-related atrophy with confluence chronic appea ring. Ventricular white matter ischemic type changes. EEG is abnormal with moderate to severe encephalopathy. Patient apparently said yes and no to the nurse today. There's been no seizure activity noted. Patient is eating less than 25% of her meals. IV fluids been increased to 100 mL per hour per nephrology. WBC 20.9, hemoglobin 11.2. Sodium 147, potassium 3.7, chloride 115, CO2 25, BUN 23 and creatinine 0.75. Blood sugar 123. Objective - Vital Signs Vital signs: Vital Signs Temp 97.8 F 04/26/20 03:51 Pulse 89 04/26/20 03:51 Resp 20 04/26/20 03:51 BP 167/75 04/26/20 03:51 Pulse Ox 98 04/26/20 03:51 Intake & Output 04/25/20 04/26/20 04/26/20 18:59 06:59 18:59 Intake Total 425 125 240 Output Total 625 100 Balance -200 25 240 Weight 63 kg 62 kg Intake: Intake, IV Titration 125 125 Amount Diltiazem 125 mg In 125 125 Sodium Chloride 0.9% 100 ml @ 10 MG/HR 10 mls/hr IV .[id number] [facility] Rx#: [id number] Oral 300 240 Output: Urine 625 100 Other: Voiding Method Indwelling Catheter Indwelling Catheter - Exam Review of Systems Constitutional: Reports anorexia, Reports fatigue, Reports lethargy, Reports malaise, Reports weakness, Reports weight loss Eyes: denies blurred vision, denies bulging eye, denies decreased vision Ears: bilateral: decreased hearing Ears, nose, mouth and throat: Denies dysphagia, Denies neck lump, Denies sore throat Cardiovascular: Denies chest pain, Denies decreased exercise tolerance, Denies dyspnea on exertion, Denies lightheadedness, Denies rapid heart beat, Denies shortness of breath, Denies syncope Respiratory: Denies congestion, Denies cough with sputum, Denies home oxygen, Denies sleep apnea, Denies snoring, Denies wheezing Gastrointestinal: Reports abdominal pain, Reports bloating, Reports constipation, Reports early satiety, Reports loss of appetite, Reports nausea, Reports vomiting Genitourinary: Denies dysuria, Denies nocturia Menstruation: Reports postmenopausal Musculoskeletal: Reports atrophy, Reports frequent falls, Reports gait dysfunction, Reports loss of height, Reports low back pain, Reports muscle weakness Musculoskeletal: absent: ankle pain, ankle stiffness, ankle swelling, elbow pain, elbow stiffness, elbow swelling, foot pain, foot stiffness, foot swelling, hand pain, hand stiffness, hand swelling, hip pain, hip stiffness, hip swelling, knee pain, knee stiffness, knee swelling, shoulder pain, shoulder stiffness, shoulder swelling, wrist pain, wrist stiffness, wrist swelling Integumentary: Denies pruritus, Denies rash Neurological: Reports balance difficulties, Reports gait dysfunction, Reports weakness, noted worsening mental status Psychiatric: Denies anxiety, Denies depression Physical examination HEENT: Head is atraumatic, normocephalic, pupils were equal round reactive to light and accommodation, extraocular muscle movement were intact, sclera nonicteric conjunctiva are pale, mucous membranes of mouth are dry. Neck: Supple, no JVD, decreased carotid upstroke bilaterally. Chest: There is significant kyphosis present, decreased breath sounds at the bases, few rhonchi, no expiratory wheezes, no chest wall tenderness, no intercostal retractions. Heart: First heart sound is depressed, second heart sounds normal, there is systolic ejection murmur 2/6 located in the left border. Abdomen: Soft and distended moderate tenderness of the right lower quadrant, there is peristomal hernia with significant ventral hernia in that area, associated with significant tenderness to palpation, positive for guarding, positive bowel sounds. Stoma bag is empty. Extremities: There is trace edema, no calf tenderness, dorsalis pedis +1 bilaterally. Neurologic examination: Patient is awake and unresponsive - Labs CBC & Chem 7: 04/26/20 07:39 04/26/20 07:39 Labs: Abnormal Lab Results - Last 24 Hours (Table) 04/24/20 04/26/20 04/26/20 Range/Units 17:35 07:39 07:39 WBC 20.9 H (3.8-10.6) k/uL RBC 3.62 L (3.80-5.40) m/uL Hgb 11.2 L (11.4-16.0) gm/dL Neutrophils # 18.8 H (1.3-7.7) k/uL Lymphocytes # 0.9 L (1.0-4.8) k/uL Sodium 147 H (137-145) mmol/L Chloride 115 H (98-107) mmol/L BUN 23 H (7-17) mg/dL Glucose 123 H (74-99) mg/dL Albumin 3.1 L (3.5-5.0) g/dL RBC Folate 834 H (280 - 791) ng/mL Assessment and Plan Assessment: Assessment and plan: 1. Large right lateral abdominal wall hernia with incarceration. Continue the patient on IV fluid in the form of normal saline at 50 mL an hour, monitor input and output and daily weight, pain control, this is a high-risk patient, we'll continue the patient on IV antibiotic meropenem 1 g IV piggyback every 8 hours, metronidazole 500 mg IV piggyback every 8 hours, continue current pain management, monitor the patient respiratory status. 2. Acute kidney injury due to poor oral intake of fluid and acute tubular necrosis. Continue IV fluid resuscitation normal saline 100 mL an hour, monitor input and output and daily weight, check the patient CMP tomorrow morning. 3. Hyperkalemia likely related to acute kidney injury. Continue IV fluid resuscitation and repeat her potassium level in the next few hours. 4. Metabolic encephalopathy secondary to acute kidney injury as well as incarcerated large ventral hernia. Continue IV fluid, continue IV antibiotic, monitor the patient very closely. Much better 5. Chronic kidney failure CKD stage II currently with acute kidney injury continue IV fluid resuscitation repeat CMP tomorrow morning. 6. CAD and non-ischemic cardiomyopathy and chronic diastolic heart failure with ejection fraction of 50%. We will maintain the patient on metoprolol 7. Hypertension and hypertensive cardiovascular disease. Continue metoprolol, hold lisinopril for now. 8. Sjogren syndrome. We'll hold off [place] 9. Anemia of chronic medical illnesses. Continue to monitor the patient's CBC over the next 24 hours. 10. Chronic pain syndrome. We will hold off oral medication start the patient on IV pain management. 11. Overactive bladder. Discontinue Detrol. 12. 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 Appears to be at baseline. 13. History of rectal cancer post-low anterior resection with colostomy place ment . 14. DVT prophylaxis. Start the patient on Lovenox 30 mg subcutaneously every 24 hours. 15. GI prophylaxis. Protonix 40 mg IV push every 24 hours. 16. Recurrent depression. Continue Zyprexa and Lexapro. 17. Acute urinary tract infection. Discontinue Rocephin and start meropenem 1 g IV piggyback every 8 hours.. 18. Valvular heart disease with [id number] mitral regurgitation, [id number] tricuspid regurgitation and mild to moderate pulmonary hypertension. 19. Hypernatremia. IV fluids changed to D5 at 50 mL per hour. 20. Sinus tachycardia. Patient continued on Cardizem drip. 21. Metabolic encephalopathy secondary to acute kidney injury, hyponatremia, incarcerated ventral hernia, Covid 19, UTI. MRI of the brain ordered. CODE STATUS: Full code Guarded prognosis.
[2020-04-26] MEDS: ALBUTEROL HFA INHALER INHALATION PRN (16:50)
[2020-04-26] MEDS: oxyCODONE-APAP 7.5-325MG 1 EACH TAB PO PRN (17:19)
[2020-04-26] MEDS: OLANZapine 7.5 MG TAB PO SCH (21:17)
[2020-04-26] MEDS: AMMONIUM LACTATE 12% LOTION 225 GM BTL TOPICAL SCH (21:18)
[2020-04-27] MEDS: metroNIDAZOLE-NS PMX 500 MG in SALINE 1 100ML.BAG IVPB SCH ×3 (00:19→16:50)
[2020-04-27] MEDS: DEXTROSE 5% IN WATER 500 ML IV SCH ×5 (00:20→18:05)
[2020-04-27] MEDS: MEROPENEM 1 GM in SODIUM CHLORIDE 0.9% 100 ML IVPB SCH ×2 (03:42→17:40)
[2020-04-27] MEDS: DILTIAZEM 125 MG in SODIUM CHLORIDE 0.9% 100 ML IV SCH ×2 (06:22→21:42)
[2020-04-27] MEDS: ALBUTEROL HFA INHALER INHALATION PRN ×3 (07:35→19:30)
[2020-04-27] MEDS: FLUTICASONE 220 MCG INHALER INHALATION SCH ×2 (07:36→19:32)
[2020-04-27 08:05] LABS: Calcium 8.4 mg/dL (8.4-10.2); Potassium 3.7 mmol/L (3.5-5.1)
[2020-04-27] MEDS: PANTOPRAZOLE 40 MG/10 ML VIAL IVP SCH (09:08)
[2020-04-27] MEDS: ENOXAPARIN 40 MG/0.4 ML SYRINGE SQ SCH (09:08)
[2020-04-27] MEDS: LACTULOSE 20 GM/30 ML CUP PO SCH ×2 (09:09→21:41)
[2020-04-27] MEDS: cycloSPORINE 0.05% OPHTH 0.4 ML DROPERETTE BOTH EYES SCH ×2 (09:09→21:41)
[2020-04-27] MEDS: ESCITALOPRAM 10 MG TAB PO SCH (09:09)
[2020-04-27] MEDS: SODIUM BICARBONATE TAB 650 MG TAB PO SCH ×3 (09:09→21:40)
[2020-04-27] MEDS: hydrALAZINE HCL 25 MG TAB PO SCH ×3 (09:10→22:10)
[2020-04-27] MEDS: METOPROLOL SUCCINATE (ER) 25 MG TAB.ER.24H PO SCH ×2 (09:10→21:41)
[2020-04-27] MEDS ORDERED: POTASSIUM CHLORIDE 20 MEQ in WATER FOR INJECTION 1 100ML.BAG IVPB STA (10:55)
--- NOTE | 2020-04-27 10:56 | P.PN ---
Subjective Patient is seen in follow-up for acute kidney injury. Renal function at baseline. Sodium level little better at 146. Remains on Cardizem drip for A. fib. A bit more awake and alert today. Vital signs are stable. General: The patient appeared well nourished and normally developed. HEENT: Head exam is unremarkable. Neck is without jugular venous distension. LUNGS: Breath sounds decreased. HEART: Regular rate and rhythm. ABDOMEN: Soft, nontender. Colostomy noted. EXTREMITITES: No edema. Objective - Vital Signs Vital signs: Vital Signs Temp 97.3 F L 04/27/20 08:00 Pulse 82 04/27/20 08:00 Resp 16 04/27/20 08:00 BP 148/67 04/27/20 08:00 Pulse Ox 98 04/27/20 08:00 Intake & Output 04/26/20 04/27/20 04/27/20 18:59 06:59 18:59 Intake Total 356 547 118 Output Total 500 120 200 Balance -144 427 -82 Weight 62 kg Intake: Intake, IV Titration 116 117 Amount Diltiazem 125 mg In 116 117 Sodium Chloride 0.9% 100 ml @ 10 MG/HR 10 mls/hr IV .[id number] [facility] Rx#: [id number] Oral 240 430 118 Output: Urine 300 120 Stool 200 200 Other: Voiding Method Indwelling Catheter Indwelling Catheter Indwelling Catheter - Labs CBC & Chem 7: 04/26/20 07:39 04/27/20 06:44 Labs: Abnormal Lab Results - Last 24 Hours (Table) 04/24/20 04/27/20 Range/Units 17:35 06:44 Sodium 146 H (137-145) mmol/L Chloride 114 H (98-107) mmol/L BUN 23 H (7-17) mg/dL Glucose 122 H (74-99) mg/dL RBC Folate 834 H (280 - 791) ng/mL Assessment and Plan Plan: Assessment: 1. Acute kidney injury mostly prerenal secondary to hemodynamic instability and diuresis. She also received IV contrast dye on 04/22/2020. Resolved - cr 0.8 to day. 2. UTI with urine culture positive for providencia maintained on antibiotics. 3. Metabolic acidosis secondary to acute kidney injury and IV fluids. Maintained on oral bicarb. Better. 4. Hypernatremia secondary to lack of oral water intake. Currently on D5W. 5. Covid-19 infection. Currently on 1 L cannula. 6. Benign hypertension. Stable. 7. Volume overload. s/p diuresis. 8. Hypokalemia from poor intake and diuretics. Magnesium normal. 9. A. fib with RVR maintained on Cardizem drip. Plan: Maintain D5W. Replace potassium. 40 mEq today. Lasix was stopped 04/24/20. Continue to monitor renal function and urine output.
--- NOTE | 2020-04-27 13:19 | P.PN ---
Subjective Progress Note Date: 04/27/20 CHIEF COMPLAINT: incarcerated parastomal hernia HISTORY OF PRESENT ILLNESS: This is a 85-year-old female with a previous history of diverticulitis and colostomy. Patient has developed a large parastomal h ernia with incarcerated small bowel. She has significant abdominal pain and problems with intermittent obstruction. Patient is followed by cardiology. Patient has been cleared by cardiology and medicine to proceed with surgery. Patient is more awake today. She is sitting up in bed. She is working with speech therapy. Speech therapist states that she is tolerating the trials of diet. And likely will be changing patient's diet. Patient's ostomy is functioning. Afebrile WBC 20.9 PHYSICAL EXAM: VITAL SIGNS: Reviewed. GENERAL: Well-developed in no acute distress. HEENT: No sclera icterus. Extraocular movements grossly intact. Moist buccal mucosa. Head is atraumatic, normocephalic. ABDOMEN: Soft. Large right parastomal hernia. Stool present in colostomy NEUROLOGIC: Patient is more awake and able to answer questions ASSESSMENT: 1. large parastomal hernia with incarcerated small bowel PLAN: -Patient is scheduled for parastomal hernia repair on Thursday with Dr. Falcon -Continue supportive care Physician Quill Fixer note has been reviewed by physician. Signing provider agrees with the documented findings, assessment, and plan of care. Objective - Vital Signs Vital signs: Vital Signs Temp 97.2 F L 04/27/20 12:00 Pulse 80 04/27/20 13:10 Resp 16 04/27/20 13:10 BP 130/61 04/27/20 12:00 Pulse Ox 98 04/27/20 12:00 Intake & Output 04/26/20 04/27/20 04/27/20 18:59 06:59 18:59 Intake Total 356 547 918 Output Total 500 120 200 Balance -144 427 718 Weight 62 kg Intake: Intake, IV Titration 116 117 800 Amount Dextrose 5% in Water 500 600 ml @ 100 mls/hr IV .Q5H [facility] Rx#:[id number] Diltiazem 125 mg In 116 117 Sodium Chloride 0.9% 100 ml @ 10 MG/HR 10 mls/hr IV .[id number] [facility] Rx#: [id number] Meropenem 1 gm In Sodium 100 Chloride 0.9% 100 ml @ 33 .3 mls/hr IVPB Q12H [facility] Rx#:[id number] metroNIDAZOLE-NS PMX 500 100 mg In Saline 1 100ml.bag @ 100 mls/hr IVPB Q8HR [facility] Rx#:[id number] Oral 240 430 118 Output: Urine 300 120 Stool 200 200 Other: Voiding Method Indwelling Catheter Indwelling Catheter Indwelling Catheter - Labs CBC & Chem 7: 04/26/20 07:39 04/27/20 06:44 Labs: Abnormal Lab Results - Last 24 Hours (Table) 04/24/20 04/27/20 Range/Units 17:35 06:44 Sodium 146 H (137-145) mmol/L Chloride 114 H (98-107) mmol/L BUN 23 H (7-17) mg/dL Glucose 122 H (74-99) mg/dL RBC Folate 834 H (280 - 791) ng/mL
--- NOTE | 2020-04-27 15:38 | P.PN ---
Subjective Progress Note Date: 04/27/20 Patient was seen at bedside and her mentation is somewhat improved today compared to yesterday per the patient's nurse. Objective - Vital Signs Vital signs: Vital Signs Temp 97.2 F L 04/27/20 12:00 Pulse 80 04/27/20 13:10 Resp 16 04/27/20 13:10 BP 130/61 04/27/20 12:00 Pulse Ox 98 04/27/20 12:00 Intake & Output 04/26/20 04/27/20 04/27/20 18:59 06:59 18:59 Intake Total 356 547 918 Output Total 500 120 200 Balance -144 427 718 Weight 62 kg 62 kg Intake: Intake, IV Titration 116 117 800 Amount Dextrose 5% in Water 500 600 ml @ 100 mls/hr IV .Q5H [facility] Rx#:[id number] Diltiazem 125 mg In 116 117 Sodium Chloride 0.9% 100 ml @ 10 MG/HR 10 mls/hr IV .[id number] [facility] Rx#: [id number] Meropenem 1 gm In Sodium 100 Chloride 0.9% 100 ml @ 33 .3 mls/hr IVPB Q12H [facility] Rx#:[id number] metroNIDAZOLE-NS PMX 500 100 mg In Saline 1 100ml.bag @ 100 mls/hr IVPB Q8HR [facility] Rx#:[id number] Oral 240 430 118 Output: Urine 300 120 Stool 200 200 Other: Voiding Method Indwelling Catheter Indwelling Catheter Indwelling Catheter - Exam GENERAL: The patient is lying in bed and seems in distress. NEUROLOGICAL: Higher mental function: The patient is awake and was ablle to state her name and the year. Otherwise not responding where she was at. She was following few simple commands (showing thumbs up and able to name a pen upon showing her). No neglect. Cranial nerves: The primary gaze is midline. The pupils are round, equal and reactive to light. Visual valdes could not be assessed because of patient condition. Could not assess EOM is normal without any nystagmus. No facial weakness bilaterally. No dysarthria. Could not assess rest of cranial nerves because of patient condition. Motor: Gait is deferred because of lack of cooperation. The strength is moving all extremities above gravity without gravity. No noticeable focality. Could not assess patient individual muscle because of cooperation. . Cerebellum: Could not assess. Sensation: Could not assess. Reflexes (right/left): 2+ throughout except ankles are 1+ bilaterally. Plantars are downgoing bilaterally. - Labs CBC & Chem 7: 04/26/20 07:39 04/27/20 06:44 Labs: Abnormal Lab Results - Last 24 Hours (Table) 04/27/20 Range/Units 06:44 Sodium 146 H (137-145) mmol/L Chloride 114 H (98-107) mmol/L BUN 23 H (7-17) mg/dL Glucose 122 H (74-99) mg/dL Assessment and Plan Assessment: This is an 85-year-old woman with multiple medical problems that presented to the hospital with abdominal pain and constipation. Acute Encephalopathy due to multifactorial: metabolic abnormality (MICHAEL, hypernatremia and incarcerated large ventral hernia) and underlying infection from COVID-19 and UTI---improving Dysphagia likely due to above. Hypernatremia due to dehydration History of mild dementia Acute kidney injury--resolved Acute Large right lateral abdominal wall hernia Leukocytosis due to acute large right lateral abdominal wall hernia Hyperkalemia resolved. Acute COVID-19 infection Acute Urinary tract infection History of Sjogren syndrome History of coronary artery disease, non-ischemic cardiomyopathy History of hypertension History of rectal cancer status post anterior resection with colostomy placement Plan: TSH: 1258, Vitamin B12: 1258 (considered normal), folate: pending, ammonia level: <9 EEG 04/25/20: It's an abnormal routine EEG. The back of slowing suggestive of moderate to severe encephalopathy. There are no focal slowing, perform dis charges or seizure on EEG. MRI the brain was performed and was reported as age-related atrophy with confluent chronic appearing periventricular white matter ischemic type changes. There is no acute or subacute stroke upon reviewing the MRI the brain. Physical therapy, occupational therapy and speech therapy are consulted. Surgery team are on board and is documented that patient is scheduled for surgery on Thursday. We'll defer the rest of the medical management to the primary team. Cardiology and nephrology team are also on board. The plan was discussed with the patient's nurse. Neurology will sign off. Please reconsult if needed. Joselito Andrade MD Neuro-Hospitalist Time with Patient: Less than 30
--- NOTE | 2020-04-27 15:54 | P.PN ---
Subjective Progress Note Date: 04/27/20 This is an 85-year-old female patient of Dr. Garcia and Dr. Pulido with past medical history of asthma, CAD with ischemic cardiomyopathy, previous history of lung cancer post resection who is known to have severe lower back pain, history of Klebsiella pneumoniae ESBL urinary tract infection, memory impairment, rectal cancer post low anterior resection with colostomy placement and she has had her stoma moved from one side to the other times to with significant peristomal hernia, patient developed to have a significant abdominal pain as well as constipation over the last few days at [facility] at that time she was given a Dulcolax suppository through the stoma and she was started on lactulose 30 g orally twice every day patient has been complaining of increased abdominal pain and distention not able to have a good BM through the stoma, an x-ray was done over there and that showed nonobstructive gas pattern with significant stool buildup, patient today was having increased amount of pain associated with nausea and not able to eat or drink she was dehydrated as well has not been eating much over the last few days, she was directed to go to the emergency department at [facility] where she was found to have an acute kidney injury as well a hyperkalemia, patient underwent CT abdomen and pelvis without contrast that showed a large right side abdominal wall ventral hernia that contains multiple loops of the small bowel hernia measures about 612 cm the opening is 5.5 cm the small bowel measures up to 3.5 cm in diameter there was incarcerated in and some mildly dilated loops of small bowel consistent with partial mechanical obstruction related to the hernia, patient was started on IV fluid as well as IV antibiotic, and surgical consultation was obtained from and had a long conversation with the emergency room physician on the complexity of the case and if the patient is not a candidate for any surgical intervention at [facility] she will need to be transferred to [facility], this was discussed with her over the phone. 04/21: Patient sitting up in bed in no apparent distress, she appears to be a bit short of breath, her IV fluids were decreased to 75 mL an hour, we'll monitor her input and output and daily weight, she was seen in consultation by cardiology in preparation for surgical intervention will be planned for tomorrow morning, I spoke general surgery and they feel that the patient can the served here for a better quality of life, and there is no need for the patient be transferred to a tertiary care center, cardiology consultation was obtained, echocardiogram will be done, EKG was done also continue beta gume in the form of metoprolol 25 mg orally twice every day, monitor the patient very closely at this time hold off ANGELICA inhibitor due to her kidney function, nephrology seen the patient as well and she seems to be doing better. 04/22: Patient is laying down in bed in minimal respiratory distress, she did receive 40 mg Lasix earlier today because of expiratory wheezes and increased shortness of breath, portable chest x-ray and abdominal x-ray was obtained, we will hold off any surgery at this time until obtaining the result of the x-ray patient does have a good stool output and her stoma at this time, echo care gram still pending at the time of dictation, I believe the patient needs to be monitored for another 24 hours before any surgical intervention. 04/23: Patient known to have mental status changes. CAT scan of the brain ordered which revealed only chronic age-related changes with chronic small vessel ischemia. CTA of the chest done yesterday revealed no pulmonary embolism. T here is new bilateral pleural effusions and pulmonary infiltrates and atelectasis. Heart appeared increased in size with probable congestive heart failure. Large pulmonary arteries consistent with pulmonary hypertension unchanged. Multiple old thoracic compression fractures. New compression frac ture of T4. Patient is afebrile, heart rate 114, blood pressure 182/87, pulse ox 92% on room air. CBC 14.7, hemoglobin 12. Sodium 143, potassium 3.8, chloride 110, CO2 16, BUN 21 and creatinine 0.86. Urine culture is positive for Providencia stuartii. Rocephin will be discontinued and patient started on meropenem 1 g IV piggyback every 8 hours. Echocardiogram reveals EF of 55-60% with mild concentric left ventricular hypertrophy, mild to moderate mitral regurgitation, [id number] tricuspid regurgitation, mild to moderate pulmonary hypertension. 2: Patient continues to have increased confusion and noted to have difficulty swallowing. Speech therapy has evaluated with recommendations. Consult has also been added for neurology for dysphagia. Medications reviewed and patient r esumed on Zyprexa and Lexapro. Patient is afebrile, heart rate 89, blood pressure 160/70, pulse ox 97% on 2 L nasal cannula. There is slight and there is a slight rise in her leukocytosis of 15.7. Hemoglobin is 11. Sodium is 148 potassium 3.2, chloride 113, CO2 20, BUN 25 and creatinine 1.12. IV fluids transition to dextrose 5% at 60 mL/h. Cardiology ordered Cardizem drip for episode of atrial fibrillation. She is continued on IV antibiotics with meropenem and Flagyl. Patient's will be contacted via phone and updated. Patient is not stable at this time for surgical intervention. 2: Patient has been seen by neurology for metabolic encephalopathy. X-ray of the chest reveals improving left lower lobe infiltrate, scattered infiltrates still present bilaterally. Prominence of the heart and pulmonary vasculature. Correlate for heart failure, atypical pulmonary edema could be considered, atypical pneumonia is within differential. Sodium 147, potassium 3.5, chloride 113, BUN 26 and creatinine 1.05. Ammonia level less than 9. TSH 0.490. Nephrology has continued D5W. Patient is unresponsive to questions, not verbalizing, staring blankly. is at bedside. Discussed CODE STATUS with the patient's and he is unable to make a decision at this time oth er than to keep her full code. MRI of the brain ordered to rule out brainstem infarct. General surgery continues to follow for the large parastomal hernia with incarceration, to be done if patient is medically stable. 2: MRI of the brain reveals age-related atrophy with confluence chronic appea ring. Ventricular white matter ischemic type changes. EEG is abnormal with moderate to severe encephalopathy. Patient apparently said yes and no to the nurse today. There's been no seizure activity noted. Patient is eating less than 25% of her meals. IV fluids been increased to 100 mL per hour per nephrology. WBC 20.9, hemoglobin 11.2. Sodium 147, potassium 3.7, chloride 115, CO2 25, BUN 23 and creatinine 0.75. Blood sugar 123. 25: Patient's mental status is improving, she is more awake and alert today, able to answer questions. Speech therapy has evaluated and plan to start trials of diet. Ostomy is functioning. Sodium level is better today at 146. Potassium is 3.7, chloride 114, CO2 25, BUN 23 and creatinine 0.81. She is still on Cardizem drip for atrial fibrillation. She is been afebrile, heart rate in the 80s, blood pressure 130/61, pulse ox 90% on 1 L nasal cannula. Patient continues on D5W at 100 mL per hour. Objective - Vital Signs Vital signs: Vital Signs Temp 97.2 F L 04/27/20 12:00 Pulse 80 04/27/20 13:10 Resp 16 04/27/20 13:10 BP 130/61 04/27/20 12:00 Pulse Ox 98 04/27/20 12:00 Intake & Output 04/26/20 04/27/20 04/27/20 18:59 06:59 18:59 Intake Total 356 547 918 Output Total 500 120 200 Balance -144 427 718 Weight 62 kg 62 kg Intake: Intake, IV Titration 116 117 800 Amount Dextrose 5% in Water 500 600 ml @ 100 mls/hr IV .Q5H [facility] Rx#:[id number] Diltiazem 125 mg In 116 117 Sodium Chloride 0.9% 100 ml @ 10 MG/HR 10 mls/hr IV .[id number] [facility] Rx#: [id number] Meropenem 1 gm In Sodium 100 Chloride 0.9% 100 ml @ 33 .3 mls/hr IVPB Q12H [facility] Rx#:[id number] metroNIDAZOLE-NS PMX 500 100 mg In Saline 1 100ml.bag @ 100 mls/hr IVPB Q8HR [facility] Rx#:[id number] Oral 240 430 118 Output: Urine 300 120 Stool 200 200 Other: Voiding Method Indwelling Catheter Indwelling Catheter Indwelling Catheter - Exam Review of Systems Constitutional: Reports anorexia, Reports fatigue, Reports lethargy, Reports malaise, Reports weakness, Reports weight loss Eyes: denies blurred vision, denies bulging eye, denies decreased vision Ears: bilateral: decreased hearing Ears, nose, mouth and throat: Denies dysphagia, Denies neck lump, Denies sore throat Cardiovascular: Denies chest pain, Denies decreased exercise tolerance, Denies dyspnea on exertion, Denies lightheadedness, Denies rapid heart beat, Denies shortness of breath, Denies syncope Respiratory: Denies congestion, Denies cough with sputum, Denies home oxygen, Denies sleep apnea, Denies snoring, Denies wheezing Gastrointestinal: Reports abdominal pain, Reports bloating, Reports constipation, Reports early satiety, Reports loss of appetite, Reports nausea, Reports vomiting Genitourinary: Denies dysuria, Denies nocturia Menstruation: Reports postmenopausal Musculoskeletal: Reports atrophy, Reports frequent falls, Reports gait dysfunction, Reports loss of height, Reports low back pain, Reports muscle weakness Musculoskeletal: absent: ankle pain, ankle stiffness, ankle swelling, elbow pain, elbow stiffness, elbow swelling, foot pain, foot stiffness, foot swelling, hand pain, hand stiffness, hand swelling, hip pain, hip stiffness, hip swelling, knee pain, knee stiffness, knee swelling, shoulder pain, shoulder stiffness, shoulder swelling, wrist pain, wrist stiffness, wrist swelling Integumentary: Denies pruritus, Denies rash Neurological: Reports balance difficulties, Reports gait dysfunction, Reports weakness, improved mental status Psychiatric: Denies anxiety, Denies depression Physical examination HEENT: Head is atraumatic, normocephalic, pupils were equal round reactive to light and accommodation, extraocular muscle movement were intact, sclera nonicteric conjunctiva are pale, mucous membranes of mouth are dry. Neck: Supple, no JVD, decreased carotid upstroke bilaterally. Chest: There is significant kyphosis present, decreased breath sounds at the bases, few rhonchi, no expiratory wheezes, no chest wall tenderness, no intercostal retractions. Heart: First heart sound is depressed, second heart sounds normal, there is systolic ejection murmur 2/6 located in the left border. Abdomen: Soft and distended moderate tenderness of the right lower quadrant, there is peristomal hernia with significant ventral hernia in that area, associated with significant tenderness to palpation, positive for guarding, positive bowel sounds. Stoma bag is empty. Extremities: There is trace edema, no calf tenderness, dorsalis pedis +1 bilaterally. Neurologic examination: Patient is awake and alert, able to answer questions and follow simple commands - Labs CBC & Chem 7: 04/26/20 07:39 04/27/20 06:44 Labs: Abnormal Lab Results - Last 24 Hours (Table) 04/27/20 Range/Units 06:44 Sodium 146 H (137-145) mmol/L Chloride 114 H (98-107) mmol/L BUN 23 H (7-17) mg/dL Glucose 122 H (74-99) mg/dL Assessment and Plan Assessment: Assessment and plan: 1. Large right lateral abdominal wall hernia with incarceration. Continue the patient on IV fluid in the form of normal saline at 50 mL an hour, monitor input and output and daily weight, pain control, this is a high-risk patient, we'll continue the patient on IV antibiotic meropenem 1 g IV piggyback every 8 hours, metronidazole 500 mg IV piggyback every 8 hours, continue current pain management, monitor the patient respiratory status. Most likely, patient will be cleared for surgery on Thursday. 2. Acute kidney injury due to poor oral intake of fluid and acute tubular necrosis. Continue IV fluid resuscitation normal saline 100 mL an hour, monitor input and output and daily weight, check the patient CMP tomorrow morning. 3. Hyperkalemia likely related to acute kidney injury. Continue IV fluid resuscitation and repeat her potassium level in the next few hours. 4. Metabolic encephalopathy secondary to acute kidney injury as well as incarcerated large ventral hernia. Continue IV fluid, continue IV antibiotic, monitor the patient very closely. Much better 5. Chronic kidney failure CKD stage II currently with acute kidney injury continue IV fluid resuscitation repeat CMP tomorrow morning. 6. CAD and non-ischemic cardiomyopathy and chronic diastolic heart failure with ejection fraction of 50%. We will maintain the patient on metoprolol 7. Hypertension and hypertensive cardiovascular disease. Continue metoprolol, hold lisinopril for now. 8. Sjogren syndrome. We'll hold off Salagen 9. Anemia of chronic medical illnesses. Continue to monitor the patient's CBC over the next 24 hours. 10. Chronic pain syndrome. We will hold off oral medication start the patient on IV pain management. 11. Overactive bladder. Discontinue Detrol. 12. 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 Appears to be at baseline. 13. History of rectal cancer post-low anterior resection with colostomy placement . 14. DVT prophylaxis. Start the patient on Lovenox 30 mg subcutaneously every 24 hours. 15. GI prophylaxis. Protonix 40 mg IV push every 24 hours. 16. Recurrent depression. Continue Zyprexa and Lexapro. 17. Acute urinary tract infection. Discontinue Rocephin and start meropenem 1 g IV piggyback every 8 hours.. 18. Valvular heart disease with [id number] mitral regurgitation, mi [id number] tricuspid regurgitation and mild to moderate pulmonary hypertension. 19. Hypernatremia. IV fluids changed to D5 at 50 mL per hour. 20. Sinus tachycardia and atrial fibrillation. Patient continued on Cardizem drip. 21. Metabolic encephalopathy secondary to acute kidney injury, hyponatremia, incarcerated ventral hernia, Covid 19, UTI. MRI of the brain negative for acute findings. CODE STATUS: Full code Guarded prognosis.
[2020-04-27] MEDS: OLANZapine 7.5 MG TAB PO SCH (21:40)
[2020-04-27] MEDS: oxyCODONE-APAP 7.5-325MG 1 EACH TAB PO PRN (21:40)
[2020-04-27] MEDS: AMMONIUM LACTATE 12% LOTION 225 GM BTL TOPICAL SCH (21:41)
[2020-04-28] MEDS: metroNIDAZOLE-NS PMX 500 MG in SALINE 1 100ML.BAG IVPB SCH ×4 (00:16→23:29)
[2020-04-28] MEDS: DEXTROSE 5% IN WATER 500 ML IV SCH ×5 (00:17→18:08)
[2020-04-28] MEDS: MEROPENEM 1 GM in SODIUM CHLORIDE 0.9% 100 ML IVPB SCH ×2 (03:56→18:07)
[2020-04-28] MEDS: oxyCODONE-APAP 7.5-325MG 1 EACH TAB PO PRN ×3 (03:56→20:24)
[2020-04-28] MEDS: DILTIAZEM 125 MG in SODIUM CHLORIDE 0.9% 100 ML IV SCH (06:13)
[2020-04-28 08:38] LABS: Calcium 7.5 mg/dL (8.4-10.2)
[2020-04-28 08:40] LABS: Magnesium 1.8 mg/dL (1.6-2.3); Potassium 4.5 mmol/L (3.5-5.1)
[2020-04-28] MEDS: FLUTICASONE 220 MCG INHALER INHALATION SCH ×2 (08:41→19:45)
[2020-04-28] MEDS: ALBUTEROL HFA INHALER INHALATION PRN ×3 (08:41→15:59)
[2020-04-28] MEDS: SODIUM BICARBONATE TAB 650 MG TAB PO SCH ×3 (09:22→23:29)
[2020-04-28] MEDS: ESCITALOPRAM 10 MG TAB PO SCH (09:22)
[2020-04-28] MEDS: hydrALAZINE HCL 25 MG TAB PO SCH ×3 (09:22→23:29)
[2020-04-28] MEDS: METOPROLOL SUCCINATE (ER) 25 MG TAB.ER.24H PO SCH ×2 (09:22→20:24)
[2020-04-28] MEDS: cycloSPORINE 0.05% OPHTH 0.4 ML DROPERETTE BOTH EYES SCH ×2 (09:23→21:40)
[2020-04-28] MEDS: PANTOPRAZOLE 40 MG/10 ML VIAL IVP SCH (09:23)
[2020-04-28] MEDS: LACTULOSE 20 GM/30 ML CUP PO SCH ×2 (09:23→20:24)
[2020-04-28] MEDS: ENOXAPARIN 40 MG/0.4 ML SYRINGE SQ SCH (09:23)
--- NOTE | 2020-04-28 15:05 | P.PN ---
Subjective Progress Note Date: 04/28/20 CHIEF COMPLAINT: Abdominal pain HISTORY OF PRESENT ILLNESS: The patient is a 85-year-old female who presented to the hospital 04/20/2020 due to abdominal pain including abdominal distention with history of colostomy. Additional workup demonstrates parastomal hernia. Patient also comes in with acute kidney disease now improving. She is resting in bed. No new reports from nursing. ROS: No fevers or chills. In contact precautions for COVID PHYSICAL EXAM: VITAL SIGNS: Reviewed CONSTITUTIONAL: Well developed and in no acute distress. EYES: Conjuctivae without sclera icterus. Extraocular movements grossly intact. HEAD, EARS, NOSE, THROAT: Moist buccal mucosa. Head is atraumatic, normoc ephalic. Hears conversational speech. No nasal drainage. NECK: Supple. No thyroidomegaly. RESPIRATORY: Non-labored respirations and equal bilateral excursions. CARDIOVASCULAR: Palpable 2+ radial pulses. Regular rate. Regular rhythm. ABDOMEN: Ostomy, right side with hernia. MUSCULOSKELETAL: No gross deformity of the lower extremities noted. No clubbing. No cyanosis. SKIN: Good skin turgor. Well perfused. NEUROLOGIC: Cranial nerves II through XII grossly intact. No focal or lateralizing signs. PSYCH: Alert and oriented to person. CLINICAL LABS: Creatinine down from 1.73 to 0.76. White blood cell count elevated from 10.2-20.9. STUDIES: CT of the abdomen pelvis and independent of reviewed 04/20/2020 demonstrating small bowel incarceration parastomal hernia. No free air noted. Gallbladder is present. The semi-independent interpretation. RADIOLOGY: CT of the chest report 04/22/2020 demonstrating no pulmonary embolisms. CT of the brain to 04/11/2020 demonstrated age-related disease without hemorrhage or infarct. ECHO: Report 04/22/2020 demonstrating ejection fraction 55-60% without aortic stenosis. ASSESSMENT: 1. Parastomal hernia with small bowel obstruction 2. Acute on chronic kidney disease improving 3. Leukocytosis PLAN: 1. Recommend optimization for surgery 2. Recommend parastomal hernia repair for which she is elevated risk for pre- exisiting co-morbidities Objective - Vital Signs Vital signs: Vital Signs Temp 97.8 F 04/28/20 04:35 Pulse 86 04/28/20 04:35 Resp 18 04/28/20 04:35 BP 122/79 04/28/20 04:35 Pulse Ox 96 04/28/20 04:35 Intake & Output 04/27/20 04/28/20 04/28/20 18:59 06:59 18:59 Intake Total 1311 1350 200 Output Total 500 500 Balance 811 850 200 Weight 62 kg 63 kg Intake: Intake, IV Titration 925 1250 Amount Dextrose 5% in Water 500 600 950 ml @ 100 mls/hr IV .Q5H [facility] Rx#:[id number] Diltiazem 125 mg In 125 Sodium Chloride 0.9% 100 ml @ 10 MG/HR 10 mls/hr IV .[id number] [facility] Rx#: [id number] Meropenem 1 gm In Sodium 100 200 Chloride 0.9% 100 ml @ 33 .3 mls/hr IVPB Q12H [facility] Rx#:[id number] metroNIDAZOLE-NS PMX 500 100 100 mg In Saline 1 100ml.bag @ 100 mls/hr IVPB Q8HR [facility] Rx#:[id number] Oral 386 100 200 Output: Urine 300 Stool 200 200 Urine/Stool Mix 300 Other: Voiding Method Indwelling Catheter Indwelling Catheter - Labs CBC & Chem 7: 04/26/20 07:39 04/28/20 07:20 Labs: Abnormal Lab Results - Last 24 Hours (Table) 04/28/20 Range/Units 07:20 Chloride 108 H (98-107) mmol/L BUN 20 H (7-17) mg/dL Calcium 7.5 L (8.4-10.2) mg/dL
--- NOTE | 2020-04-28 17:57 | XR ---
EXAMINATION TYPE: XR chest 1V portable DATE OF EXAM: 04/28/2020 COMPARISON: 05/12/2020 HISTORY: Pneumonia. Short of breath. TECHNIQUE: FINDINGS: There is elevated right diaphragm. There is some patchy atelectasis in the mid and lower samara ng valdes. There is coarse interstitial pulmonary density. There is thoracic vertebroplasty. IMPRESSION: Interstitial infiltrates and atelectasis unchanged. Mild heart failure is possible.
[2020-04-28 18:08] LABS: Albumin 2.5 g/dL (3.5-5.0); Calcium 7.7 mg/dL (8.4-10.2); Potassium 3.9 mmol/L (3.5-5.1); Total Bilirubin 0.5 mg/dL (0.2-1.3); Total Protein 5.6 g/dL (6.3-8.2)
[2020-04-28 18:29] LABS: Appearance,Urine Clear (Clear); Bilirubin,Urine Negative (Negative); Blood,Urine Negative (Negative); Color,Urine Yellow; Glucose,Urine (UA) Negative (Negative); Hyaline Casts,Urine 1 /lpf (0-2); Ketones,Urine Trace (Negative); Leukocyte Esterase,Urine Small (Negative); Mucus,Urine Rare /hpf; Nitrite,Urine Negative (Negative); Protein,Urine 1+ (Negative); RBC,Urine 2 /hpf (0-5); Specific Gravity,Urine 1.023 (1.001-1.035); WBC,Urine 4 /hpf (0-5)
--- NOTE | 2020-04-28 19:21 | PN ---
PROGRESS NOTE DATE OF SERVICE: 04/28/2020. I am covering for Dr. Garcia. HISTORY OF PRESENT ILLNESS: This 85-year-old woman who was admitted with large right lateral abdominal wall incarcerated hernia, is being closely monitored. Surgery is planning surgery on Thursday. Neurology has seen the patient as well as surgery. Multifactorial encephalopathy was also noted. The patient also had COVID-19 infection as well. The most recent chest x-ray reviewed personally by me done on 04/25/2020 showed improving lobular infiltrates. PAST MEDICAL HISTORY: Reviewed. REVIEW OF SYSTEMS: CARDIOVASCULAR: No angina. RESPIRATION as mentioned earlier. GI: As mentioned earlier. : No dysuria. NERVOUS SYSTEM: No numbness or weakness. CURRENT MEDICATIONS: Reviewed and include: Ventolin, Restasis, Diltiazem, Lovenox, Lexapro, Apresoline, Cephulac, the doses have been reviewed. PHYSICAL EXAM: Patient is alert, oriented x3. Pulse 88. Blood pressure 160/75, respirations 20, temperature 98.2, pulse ox 97% on room air. HEENT: Conjunctivae normal. NECK: No JVD. CARDIOVASCULAR: S1, S2 muffled. RESPIRATORY: Breath sounds diminished in the bases. Scattered rhonchi and crackles. ABDOMEN: Soft. Right lower quadrant abdominal hernia present. Nontender. No ascites. LEGS: No edema. No swelling. NERVOUS SYSTEM: Diffusely weak. LABS: WBC 15.7, hemoglobin 11, sodium 140, potassium 4.5, improved. ASSESSMENT: 1. Large right lateral abdominal wall hernia with incarceration. 2. Acute kidney injury with poor p.o. intake. 3. Hyperkalemia. 4. Acute metabolic encephalopathy secondary to multifactorial. 5. Chronic kidney disease stage 3, stage II, baseline. 6. Coronary artery disease, nonischemic cardiomyopathy. 7. Acute COVID-19 infection. 8. Hypertension. 9. Hypertensive cardiovascular disease. 10.Sjogren's syndrome. 11.Anemia of chronic disease. 12.Chronic pain syndrome. 13.Overactive bladder. 14.Mild memory loss. 15.History of rectal cancer. 16.Deep vein thrombosis prophylaxis and gastrointestinal prophylaxis. 17.Recurrent depression. 18.Acute urinary tract infection. 19.Valvular heart disease. 20.Hyponatremia. 21.Sinus tachycardia. RECOMMENDATION AND DISCUSSION: This 85-year-old woman who presented with multiple complex medical issues, we will monitor the patient closely, continue the current medications. I recommend repeat labs. Otherwise, I would also recommend repeat chest x-ray to ensure stability. Previous x-ray was reviewed as mentioned earlier. Surgery is planning surgery on Thursday. The brain MRI was also done to evaluate for encephalopathy as well. Neurology recommended showed only age-related atrophy and chronic periventricular white matter changes. The prognosis guarded, but however the patient is stable. Further recommendations to follow. MMODL / IJN: [id number] /
[2020-04-28] MEDS: OLANZapine 7.5 MG TAB PO SCH (20:24)
[2020-04-28] MEDS: AMMONIUM LACTATE 12% LOTION 225 GM BTL TOPICAL SCH (21:40)
[2020-04-29] MEDS: DILTIAZEM 125 MG in SODIUM CHLORIDE 0.9% 100 ML IV SCH ×3 (03:18→21:22)
[2020-04-29] MEDS: DEXTROSE 5% IN WATER 500 ML IV SCH (03:19)
[2020-04-29] MEDS: MEROPENEM 1 GM in SODIUM CHLORIDE 0.9% 100 ML IVPB SCH ×2 (03:21→17:35)
[2020-04-29] MEDS ORDERED: DEXTROSE 5% IN WATER 1,000 ML IV SCH (03:30)
[2020-04-29 07:34] LABS: Basophils # (A) 0.1 k/uL (0-0.2); Basophils % (A) 1 %; Eosinophils # (A) 0.5 k/uL (0-0.7); Eosinophils % (A) 4 %; HCT 35.1 % (34.0-46.0); HGB 11.5 gm/dL (11.4-16.0); Lymphocytes % (A) 7 %; MCH 31.9 pg (25.0-35.0); MCHC 32.8 g/dL (31.0-37.0); Mean Platelet Volume 7.8; Monocytes # (A) 0.4 k/uL (0-1.0); Monocytes % (A) 3 %; Neutrophils % (A) 84 %; Platelet Count 215 k/uL (150-450); RBC 3.62 m/uL (3.80-5.40); WBC 13.1 k/uL (3.8-10.6)
[2020-04-29 07:58] LABS: African American GFR (CKD) >90 (>60 ml/min/1.73 sqM); Anion Gap 6 mmol/L; Blood Urea Nitrogen 13 mg/dL (7-17); Carbon Dioxide 22 mmol/L (22-30); Chloride 105 mmol/L (98-107); Glucose 105 mg/dL (74-99); Magnesium 1.7 mg/dL (1.6-2.3); Non-African American GFR(CKD) 81 (>60 ml/min/1.73 sqM); Potassium 3.8 mmol/L (3.5-5.1); Sodium 133 mmol/L (137-145)
[2020-04-29] MEDS: FLUTICASONE 220 MCG INHALER INHALATION SCH ×2 (08:50→19:56)
[2020-04-29] MEDS: oxyCODONE-APAP 7.5-325MG 1 EACH TAB PO PRN ×2 (08:53→19:34)
[2020-04-29] MEDS: ESCITALOPRAM 10 MG TAB PO SCH (08:54)
[2020-04-29] MEDS: PANTOPRAZOLE 40 MG/10 ML VIAL IVP SCH (08:54)
[2020-04-29] MEDS: LACTULOSE 20 GM/30 ML CUP PO SCH ×2 (08:54→19:57)
[2020-04-29] MEDS: hydrALAZINE HCL 25 MG TAB PO SCH ×3 (08:54→21:21)
[2020-04-29] MEDS: metroNIDAZOLE-NS PMX 500 MG in SALINE 1 100ML.BAG IVPB SCH ×3 (08:55→23:31)
[2020-04-29] MEDS: ENOXAPARIN 40 MG/0.4 ML SYRINGE SQ SCH (08:55)
[2020-04-29] MEDS: METOPROLOL SUCCINATE (ER) 25 MG TAB.ER.24H PO SCH ×2 (08:55→21:21)
[2020-04-29] MEDS: SODIUM BICARBONATE TAB 650 MG TAB PO SCH ×3 (08:55→21:21)
[2020-04-29] MEDS: cycloSPORINE 0.05% OPHTH 0.4 ML DROPERETTE BOTH EYES SCH ×2 (08:55→21:21)
--- NOTE | 2020-04-29 14:02 | P.PN ---
Subjective Progress Note Date: 04/29/20 CHIEF COMPLAINT: Abdominal pain HISTORY OF PRESENT ILLNESS: The patient is a 85-year-old female who presented to the hospital 04/20/2020 due to abdominal pain including abdominal distention with history of colostomy. Additional workup demonstrates parastomal hernia. No reports of new acute abdominal pain. She has WBC over 20,000 for sepsis now improved. ROS: No fevers or chills. In contact precautions for COVID. No shortness of breath. PHYSICAL EXAM: VITAL SIGNS: Reviewed CONSTITUTIONAL: Well developed and in no acute distress. EYES: Conjuctivae without sclera icterus. Extraocular movements grossly intact. HEAD, EARS, NOSE, THROAT: Moist buccal mucosa. Head is atraumatic, normocepha lic. Hears conversational speech. No nasal drainage. NECK: Supple. No thyroidomegaly. RESPIRATORY: Non-labored respirations and equal bilateral excursions. CARDIOVASCULAR: 2+ radial pulses. ABDOMEN: Ostomy, right side with hernia. MUSCULOSKELETAL: No gross deformity of the lower extremities noted. No clubbing. No cyanosis. SKIN: Good skin turgor. Well perfused. NEUROLOGIC: Cranial nerves II through XII grossly intact. No focal or lateralizing signs. PSYCH: Alert and oriented to person. CLINICAL LABS: White blood cell count elevated from 10.2-20.9 downt to 13.1, today. ASSESSMENT: 1. Parastomal hernia with small bowel obstruction 2. Acute on chronic kidney disease improving 3. Leukocytosis with sepsis, improved PLAN: 1. NPO after midnight. 2. Recommend parastomal hernia repair for which she is elevated risk Objective - Vital Signs Vital signs: Vital Signs Temp 96.5 F L 04/29/20 08:00 Pulse 89 04/29/20 08:00 Resp 18 04/29/20 03:28 BP 134/66 04/29/20 08:00 Pulse Ox 98 04/29/20 08:00 Intake & Output 04/28/20 04/29/20 04/29/20 18:59 06:59 18:59 Intake Total 1005 1526.333 207.5 Output Total 650 800 Balance 355 726.333 207.5 Weight 63 kg 65.5 kg Intake: Intake, IV Titration 625 1026.333 27.5 Amount Dextrose 5% in Water 1, 725 000 ml @ 75 mls/hr IV . [id number] [facility] Rx#:[id number] Dextrose 5% in Water 500 400 ml @ 75 mls/hr IV .[id number] [facility] Rx#:[id number] Diltiazem 125 mg In 125 1.333 27.5 Sodium Chloride 0.9% 100 ml @ 10 MG/HR 10 mls/hr IV .[id number] [facility] Rx#: [id number] Meropenem 1 gm In Sodium 200 Chloride 0.9% 100 ml @ 33 .3 mls/hr IVPB Q12H [facility] Rx#:[id number] metroNIDAZOLE-NS PMX 500 100 100 mg In Saline 1 100ml.bag @ 100 mls/hr IVPB Q8HR [facility] Rx#:[id number] Oral 380 500 180 Output: Urine 300 500 Stool 350 300 Other: Voiding Method Indwelling Catheter Indwelling Catheter Indwelling Catheter - Labs CBC & Chem 7: 04/29/20 07:05 04/29/20 07:05 Labs: Abnormal Lab Results - Last 24 Hours (Table) 04/28/20 04/28/20 04/29/20 Range/Units 17:28 17:45 07:05 WBC 13.1 H (3.8-10.6) k/uL RBC 3.62 L (3.80-5.40) m/uL Neutrophils # 11.0 H (1.3-7.7) k/uL Sodium 134 L (137-145) mmol/L Glucose 116 H (74-99) mg/dL Calcium 7.7 L (8.4-10.2) mg/dL Total Protein 5.6 L (6.3-8.2) g/dL Albumin 2.5 L (3.5-5.0) g/dL Urine Protein 1+ H (Negative) Urine Ketones Trace H (Negative) Ur Leukocyte Esterase Small H (Negative) Urine Mucus Rare H (None) /hpf 04/29/20 Range/Units 07:05 WBC (3.8-10.6) k/uL RBC (3.80-5.40) m/uL Neutrophils # (1.3-7.7) k/uL Sodium 133 L (137-145) mmol/L Glucose 105 H (74-99) mg/dL Calcium 8.0 L (8.4-10.2) mg/dL Total Protein (6.3-8.2) g/dL Albumin (3.5-5.0) g/dL Urine Protein (Negative) Urine Ketones (Negative) Ur Leukocyte Esterase (Negative) Urine Mucus (None) /hpf Assessment and Plan (1) Parastomal hernia Current Visit: Yes Status: Acute Code(s): K43.5 - PARASTOMAL HERNIA WITHOUT OBSTRUCTION OR GANGRENE SNOMED Code(s): 166385858 (2) Parastomal hernia with obstruction and without gangrene Current Visit: Yes Status: Acute Code(s): K43.3 - PARASTOMAL HERNIA WITH OBSTRUCTION, WITHOUT GANGRENE SNOMED Code(s): 474558392 (3) Dehydration Current Visit: Yes Status: Acute Code(s): E86.0 - DEHYDRATION SNOMED Code(s): 34784344 (4) Acute renal failure Current Visit: No Status: Acute Code(s): N17.9 - ACUTE KIDNEY FAILURE, UNSPE CIFIED SNOMED Code(s): 53863619 (5) Sepsis Current Visit: No Status: Acute Code(s): A41.9 - SEPSIS, UNSPECIFIED ORGANISM SNOMED Code(s): 43993807
--- NOTE | 2020-04-29 14:36 | PN ---
PROGRESS NOTE DATE OF SERVICE: 04/29/2020 I am covering for Dr. Garcia. This 85-year-old woman is admitted with large right lateral abdominal wall incarcerated hernia, is being closely monitored. Surgery is planning intervention tomorrow. The patient also had Covid 19 positive test. The patient continues to be mildly confused. The most recent chest x-ray which was requested today, which was personally reviewed by me showed bilateral infiltrates, mostly unchanged. PAST MEDICAL HISTORY: Reviewed. REVIEW OF SYSTEMS: CARDIOVASCULAR SYSTEM: No angina. RESPIRATION: As mentioned earlier. GI: As mentioned earlier. : No dysuria. NERVOUS SYSTEM: No numbness, weakness. CURRENT MEDICATIONS: Reviewed and include: Ventolin,, diltiazem, Lovenox, Lexapro, Flovent, Apresoline, Lac-Hydrin, Cephulac, meropenem, Flagyl. PHYSICAL EXAM: Patient is alert, oriented x2. Pulse 89. Blood pressure 134/66, respiration 18, temperature 98.5, pulse ox 98% on room air. HEENT: Conjunctivae normal. NECK: No JVD. CARDIOVASCULAR: S1, S2 muffled. RESPIRATORY: Breath sounds diminished in the bases. Bilateral scattered rhonchi and crackles. ABDOMEN: Soft. Nontender. NERVOUS SYSTEM: No focal deficits. LABS: WBC 13.2, hemoglobin 11.4, sodium 133. ASSESSMENT: 1. Large right lateral abdominal wall hernia with incarceration. 2. Acute kidney injury with poor p.o. intake. 3. Hyperkalemia. 4. Acute COVID-19 infection. 5. Acute metabolic encephalopathy secondary multifactorial. 6. Chronic kidney stage II baseline. 7. Coronary artery disease, nonischemic cardiomyopathy. 8. Hypertension. 9. Hypertensive cardiovascular disease. 10.Sjogren syndrome. 11.Anemia of chronic disease. 12.Chronic pain syndrome. 13.Overactive bladder. 14.Mild memory loss. 15.History of rectal cancer. 16.Deep vein thrombosis prophylaxis and gastrointestinal prophylaxis. 17.Recurrent depression. 18.Acute urinary tract infection. 19.Valvular heart disease history. 20.Hyponatremia. 21.Sinus tachycardia recurrence. RECOMMENDATIONS AND DISCUSSION: Recommend to continue current medications, management and symptomatic treatment. Continue with current medications. The patient is on empiric antibiotics. Combination of Merrem and Flagyl. We will continue to monitor and closely follow with surgery. Dr. Radha will follow tomorrow. Prognosis guarded. MMODL / IJN: [id number] / MTDD
[2020-04-29] MEDS: ALBUTEROL HFA INHALER INHALATION PRN ×2 (15:25→19:56)
[2020-04-29] MEDS: SODIUM CHLORIDE 0.9% 1,000 ML IV SCH (17:34)
[2020-04-29] MEDS: ONDANSETRON 4 MG/2 ML VIAL IVP PRN (19:34)
[2020-04-29] MEDS: AMMONIUM LACTATE 12% LOTION 225 GM BTL TOPICAL SCH (21:21)
[2020-04-29] MEDS: OLANZapine 7.5 MG TAB PO SCH (21:21)
[2020-04-30] MEDS: MEROPENEM 1 GM in SODIUM CHLORIDE 0.9% 100 ML IVPB SCH ×2 (04:35→18:57)
[2020-04-30 07:26] LABS: Basophils % (A) 0 %; Eosinophils # (A) 0.4 k/uL (0-0.7); Eosinophils % (A) 4 %; HCT 35.9 % (34.0-46.0); HGB 11.3 gm/dL (11.4-16.0); Lymphocytes % (A) 12 %; MCH 31.1 pg (25.0-35.0); MCHC 31.5 g/dL (31.0-37.0); MCV 98.7 fL (80.0-100.0); Mean Platelet Volume 8.3; Monocytes # (A) 0.4 k/uL (0-1.0); Monocytes % (A) 5 %; Neutrophils # (A) 6.7 k/uL (1.3-7.7); Neutrophils % (A) 77 %; Platelet Count 207 k/uL (150-450); RBC 3.63 m/uL (3.80-5.40); RDW 13.3 % (11.5-15.5); WBC 8.7 k/uL (3.8-10.6)
[2020-04-30] MEDS: ALBUTEROL HFA INHALER INHALATION PRN ×2 (07:31→20:16)
[2020-04-30] MEDS: FLUTICASONE 220 MCG INHALER INHALATION SCH ×2 (07:31→20:15)
[2020-04-30 07:39] LABS: Albumin 2.5 g/dL (3.5-5.0); Potassium 3.8 mmol/L (3.5-5.1); Total Bilirubin 0.6 mg/dL (0.2-1.3); Total Protein 5.5 g/dL (6.3-8.2)
[2020-04-30 08:18] LABS: Magnesium 1.7 mg/dL (1.6-2.3)
[2020-04-30] MEDS: PANTOPRAZOLE 40 MG/10 ML VIAL IVP SCH (08:33)
[2020-04-30] MEDS: metroNIDAZOLE-NS PMX 500 MG in SALINE 1 100ML.BAG IVPB SCH ×2 (08:34→16:57)
[2020-04-30] MEDS ORDERED: ROCURONIUM 10 MG/ML (5 ML VIAL) IV ONE (11:42)
[2020-04-30] MEDS ORDERED: GLYCOPYRROLATE 0.2 MG/ML 2 ML VIAL ONE (11:42)
[2020-04-30] MEDS ORDERED: PROPOFOL 10 MG/ML 20 ML VIAL IV ONE (11:42)
[2020-04-30] MEDS ORDERED: PHENYLEPHRINE-0.9% NACL SYG 1,000 MCG/10 ML SYRINGE ONE (11:42)
[2020-04-30] MEDS ORDERED: fentaNYL (PF) 50 MCG/ML 2 ML AMP ONE (11:42)
[2020-04-30] MEDS ORDERED: LIDOCAINE 1% INJ 10MG/ML (20 ML MDV) ONE (11:42)
[2020-04-30] MEDS ORDERED: NEOSTIGMINE 1 MG/ML 10 ML VIAL ONE (11:42)
[2020-04-30] MEDS ORDERED: SUCCINYLCHOLINE CHLORIDE 100 MG/5 ML SYR IV ONE (11:42)
[2020-04-30] MEDS ORDERED: SODIUM CHLORIDE 0.9% 1,000 ML IV ONE ×2 (12:04)
[2020-04-30] MEDS ORDERED: LACTATED RINGERS 1,000 ML IV ONE ×2 (12:21→13:34)
[2020-04-30] MEDS: hydrALAZINE HCL 25 MG TAB PO SCH (12:29)
[2020-04-30] MEDS: METOPROLOL SUCCINATE (ER) 25 MG TAB.ER.24H PO SCH ×2 (12:29→20:17)
[2020-04-30] MEDS: LACTULOSE 20 GM/30 ML CUP PO SCH ×2 (12:29→20:17)
[2020-04-30] MEDS: ESCITALOPRAM 10 MG TAB PO SCH (12:29)
[2020-04-30] MEDS: SODIUM BICARBONATE TAB 650 MG TAB PO SCH ×3 (12:29→20:18)
--- NOTE | 2020-04-30 14:03 | P.OP ---
Date of Procedure: 04/30/20 Preoperative Diagnosis: Incarcerated parastomal hernia Postoperative Diagnosis: Incarcerated parastomal hernia. Incisional hernia Adhesions Procedure(s) Performed: Exploratory laparotomy Repair of parastomal hernia Lysis of adhesions Partial colectomy Repair of incisional hernia Partial omentectomy Anesthesia: JANE Surgeon: Andrei Falcon Estimated Blood Loss (ml): 100 Pathology: other (colon and the omentum) Condition: stable Disposition: ICU Description of Procedure: The patient's placed on the operative table in the supine position. She received general anesthesia. Her abdomen was prepped and draped usual fashion. The abdomen was entered through midline incision. There is small incisional hernia located in her midline scar. Approximately 20 minutes operative time used to lyse adhesions. The colostomy was found. Patient large parastomal hernia. The colostomy then transected the fascial level. The hernia defect was then closed using [id number] Ethibond sutures. At this point a portion of the omentum was transected and sent to pathology. A suitable spot for the colostomy was chosen in the left upper quadrant. The colon was then brought out through the colostomy site. The fascia was closed with looped #1 PDS suture. Skin was closed hanh. The incisional hernias repaired during fascial closure. The colostomy then matured using 3-0 Vicryl suture. The old colostomy site was then excised by dividing the mucosa adjacent issues with cautery the specimens of pathology. The fascia was then closed again with #1 Suture. Skin was closed stable. Patient tolerated procedure well. At the case patient had some respiratory failure. She was sent to the ICU on BiPAP.
[2020-04-30] MEDS: ENOXAPARIN 40 MG/0.4 ML SYRINGE SQ SCH (14:53)
[2020-04-30] MEDS: DILTIAZEM 125 MG in SODIUM CHLORIDE 0.9% 100 ML IV SCH ×2 (14:53→21:13)
[2020-04-30] MEDS: SODIUM CHLORIDE 0.9% 1,000 ML IV SCH (14:54)
[2020-04-30] MEDS: cycloSPORINE 0.05% OPHTH 0.4 ML DROPERETTE BOTH EYES SCH ×2 (14:54→21:12)
--- NOTE | 2020-04-30 15:36 | P.PN ---
Subjective Progress Note Date: 04/30/20 This is an 85-year-old female patient of Dr. Garcia and Dr. Pulido with past medical history of asthma, CAD with ischemic cardiomyopathy, previous history of lung cancer post resection who is known to have severe lower back pain, history of Klebsiella pneumoniae ESBL urinary tract infection, memory impairment, rectal cancer post low anterior resection with colostomy placement and she has had her stoma moved from one side to the other times to with significant peristomal hernia, patient developed to have a significant abdominal pain as well as constipation over the last few days at [facility] at that time she was given a Dulcolax suppository through the stoma and she was started on lactulose 30 g orally twice every day patient has been complaining of increased abdominal pain and distention not able to have a good BM through the stoma, an x-ray was done over there and that showed nonobstructive gas pattern with significant stool buildup, patient today was having increased amount of pain associated with nausea and not able to eat or drink she was dehydrated as well has not been eating much over the last few days, she was directed to go to the emergency department at [facility] where she was found to have an acute kidney injury as well a hyperkalemia, patient underwent CT abdomen and pelvis without contrast that showed a large right side abdominal wall ventral hernia that contains multiple loops of the small bowel hernia measures about 612 cm the opening is 5.5 cm the small bowel measures up to 3.5 cm in diameter there was incarcerated in and some mildly dilated loops of small bowel consistent with partial mechanical obstruction related to the hernia, patient was started on IV fluid as well as IV antibiotic, and surgical consultation was obtained from and had a long conversation with the emergency room physician on the complexity of the case and if the patient is not a candidate for any surgical intervention at [facility] she will need to be transferred to [facility], this was discussed with her over the phone. 04/21: Patient sitting up in bed in no apparent distress, she appears to be a bit short of breath, her IV fluids were decreased to 75 mL an hour, we'll monitor her input and output and daily weight, she was seen in consultation by cardiology in preparation for surgical intervention will be planned for tomorrow morning, I spoke general surgery and they feel that the patient can the served here for a better quality of life, and there is no need for the patient be transferred to a tertiary care center, cardiology consultation was obtained, echocardiogram will be done, EKG was done also continue beta gume in the form of metoprolol 25 mg orally twice every day, monitor the patient very closely at this time hold off ANGELICA inhibitor due to her kidney function, nephrology seen the patient as well and she seems to be doing better. 04/22: Patient is laying down in bed in minimal respiratory distress, she did receive 40 mg Lasix earlier today because of expiratory wheezes and increased shortness of breath, portable chest x-ray and abdominal x-ray was obtained, we will hold off any surgery at this time until obtaining the result of the x-ray patient does have a good stool output and her stoma at this time, echo care gram still pending at the time of dictation, I believe the patient needs to be monitored for another 24 hours before any surgical intervention. 04/23: Patient known to have mental status changes. CAT scan of the brain ordered which revealed only chronic age-related changes with chronic small vessel ischemia. CTA of the chest done yesterday revealed no pulmonary embolism. T here is new bilateral pleural effusions and pulmonary infiltrates and atelectasis. Heart appeared increased in size with probable congestive heart failure. Large pulmonary arteries consistent with pulmonary hypertension unchanged. Multiple old thoracic compression fractures. New compression frac ture of T4. Patient is afebrile, heart rate 114, blood pressure 182/87, pulse ox 92% on room air. CBC 14.7, hemoglobin 12. Sodium 143, potassium 3.8, chloride 110, CO2 16, BUN 21 and creatinine 0.86. Urine culture is positive for Providencia stuartii. Rocephin will be discontinued and patient started on meropenem 1 g IV piggyback every 8 hours. Echocardiogram reveals EF of 55-60% with mild concentric left ventricular hypertrophy, mild to moderate mitral regurgitation, [id number] tricuspid regurgitation, mild to moderate pulmonary hypertension. 2: Patient continues to have increased confusion and noted to have difficulty swallowing. Speech therapy has evaluated with recommendations. Consult has also been added for neurology for dysphagia. Medications reviewed and patient r esumed on Zyprexa and Lexapro. Patient is afebrile, heart rate 89, blood pressure 160/70, pulse ox 97% on 2 L nasal cannula. There is slight and there is a slight rise in her leukocytosis of 15.7. Hemoglobin is 11. Sodium is 148 potassium 3.2, chloride 113, CO2 20, BUN 25 and creatinine 1.12. IV fluids transition to dextrose 5% at 60 mL/h. Cardiology ordered Cardizem drip for episode of atrial fibrillation. She is continued on IV antibiotics with meropenem and Flagyl. Patient's will be contacted via phone and updated. Patient is not stable at this time for surgical intervention. 2: Patient has been seen by neurology for metabolic encephalopathy. X-ray of the chest reveals improving left lower lobe infiltrate, scattered infiltrates still present bilaterally. Prominence of the heart and pulmonary vasculature. Correlate for heart failure, atypical pulmonary edema could be considered, atypical pneumonia is within differential. Sodium 147, potassium 3.5, chloride 113, BUN 26 and creatinine 1.05. Ammonia level less than 9. TSH 0.490. Nephrology has continued D5W. Patient is unresponsive to questions, not verbalizing, staring blankly. is at bedside. Discussed CODE STATUS with the patient's and he is unable to make a decision at this time oth er than to keep her full code. MRI of the brain ordered to rule out brainstem infarct. General surgery continues to follow for the large parastomal hernia with incarceration, to be done if patient is medically stable. 2: MRI of the brain reveals age-related atrophy with confluence chronic appea ring. Ventricular white matter ischemic type changes. EEG is abnormal with moderate to severe encephalopathy. Patient apparently said yes and no to the nurse today. There's been no seizure activity noted. Patient is eating less than 25% of her meals. IV fluids been increased to 100 mL per hour per nephrology. WBC 20.9, hemoglobin 11.2. Sodium 147, potassium 3.7, chloride 115, CO2 25, BUN 23 and creatinine 0.75. Blood sugar 123. 25: Patient's mental status is improving, she is more awake and alert today, able to answer questions. Speech therapy has evaluated and plan to start trials of diet. Ostomy is functioning. Sodium level is better today at 146. Potassium is 3.7, chloride 114, CO2 25, BUN 23 and creatinine 0.81. She is still on Cardizem drip for atrial fibrillation. She is been afebrile, heart rate in the 80s, blood pressure 130/61, pulse ox 90% on 1 L nasal cannula. Patient continues on D5W at 100 mL per hour. 04/30: Patient is awake and alert. Mental status is much improved. She is scheduled for surgery today with Dr. Falcon. Patient's is at bedside. She has been afebrile, heart rate 75, blood pressure 144/76, pulse ox 90% on room air. WBC 8.7, hemoglobin 11.3. Sodium 136 otherwise electrolytes renal function are normal. Liver function tests are normal. Air in the ostomy bag. No stool at this point. Baez catheter draining clear tobin urine. Objective - Vital Signs Vital signs: Vital Signs Temp 98.1 F 04/30/20 04:12 Pulse 75 04/30/20 04:12 Resp 18 04/30/20 04:12 BP 144/76 04/30/20 04:12 Pulse Ox 98 04/30/20 04:12 Intake & Output 04/29/20 04/30/20 04/30/20 18:59 06:59 18:59 Intake Total 1205.5 962.167 Output Total 700 750 Balance 505.5 212.167 Weight 69 kg Intake: Intake, IV Titration 727.5 712.167 Amount Dextrose 5% in Water 1, 600 000 ml @ 75 mls/hr IV . [id number] [facility] Rx#:[id number] Diltiazem 125 mg In 27.5 62.167 Sodium Chloride 0.9% 100 ml @ 10 MG/HR 10 mls/hr IV .[id number] [facility] Rx#: [id number] Meropenem 1 gm In Sodium 100 Chloride 0.9% 100 ml @ 33 .3 mls/hr IVPB Q12H [facility] Rx#:[id number] Sodium Chloride 0.9% 1, 450 000 ml @ 50 mls/hr IV . Q20H [facility] Rx#:[id number] metroNIDAZOLE-NS PMX 500 100 100 mg In Saline 1 100ml.bag @ 100 mls/hr IVPB Q8HR [facility] Rx#:[id number] Oral 478 250 Output: Urine 200 550 Stool 500 Urine/Stool Mix 200 Other: Voiding Method Indwelling Catheter Indwelling Catheter - Exam Review of Systems Constitutional: Reports anorexia, Reports fatigue, denies lethargy, Reports malaise, Reports weakness, Reports weight loss Eyes: denies blurred vision, denies bulging eye, denies decreased vision Ears: bilateral: decreased hearing Ears, nose, mouth and throat: Denies dysphagia, Denies neck lump, Denies sore throat Cardiovascular: Denies chest pain, Denies decreased exercise tolerance, Denies dyspnea on exertion, Denies lightheadedness, Denies rapid heart beat, Denies shortness of breath, Denies syncope Respiratory: Denies congestion, Denies cough with sputum, Denies home oxygen, Denies sleep apnea, Denies snoring, Denies wheezing Gastrointestinal: Reports abdominal pain, Reports bloating, Reports constipation, Reports early satiety, Reports loss of appetite, Reports nausea, Reports vomiting Genitourinary: Denies dysuria, Denies nocturia Menstruation: Reports postmenopausal Musculoskeletal: Reports atrophy, Reports frequent falls, Reports gait dysfunction, Reports loss of height, Reports low back pain, Reports muscle weakness Musculoskeletal: absent: ankle pain, ankle stiffness, ankle swelling, elbow pain, elbow stiffness, elbow swelling, foot pain, foot stiffness, foot swelling, hand pain, hand stiffness, hand swelling, hip pain, hip stiffness, hip swelling, knee pain, knee stiffness, knee swelling, shoulder pain, shoulder stiffness, shoulder swelling, wrist pain, wrist stiffness, wrist swelling Integumentary: Denies pruritus, Denies rash Neurological: Reports balance difficulties, Reports gait dysfunction, Reports weakness, improved mental status Psychiatric: Denies anxiety, Denies depression Physical examination HEENT: Head is atraumatic, normocephalic, pupils were equal round reactive to light and accommodation, extraocular muscle movement were intact, sclera nonicte tadeo conjunctiva are pale, mucous membranes of mouth are dry. Neck: Supple, no JVD, decreased carotid upstroke bilaterally. Chest: There is significant kyphosis present, decreased breath sounds at the bases, few rhonchi, no expiratory wheezes, no chest wall tenderness, no intercostal retractions. Heart: First heart sound is depressed, second heart sounds normal, there is systolic ejection murmur 2/6 located in the left border. Abdomen: Soft and distended moderate tenderness of the right lower quadrant, there is peristomal hernia with significant ventral hernia in that area, associated with significant tenderness to palpation, positive for guarding, positive bowel sounds. Stoma bag is empty. Extremities: There is trace edema, no calf tenderness, dorsalis pedis +1 bilaterally. Neurologic examination: Patient is awake and alert, able to answer questions and follow simple commands - Labs CBC & Chem 7: 04/30/20 06:21 04/30/20 06:21 Labs: Abnormal Lab Results - Last 24 Hours (Table) 04/29/20 04/30/20 Range/Units 07:05 06:21 RBC 3.63 L (3.80-5.40) m/uL Hgb 11.3 L (11.4-16.0) gm/dL Sodium 133 L (137-145) mmol/L Glucose 105 H (74-99) mg/dL Calcium 8.0 L (8.4-10.2) mg/dL Assessment and Plan Plan: 1. Large right lateral abdominal wall hernia with incarceration. Continue the patient on IV fluid in the form of normal saline at 50 mL an hour, monitor input and output and daily weight, pain control, this is a high-risk patient, we'll continue the patient on IV antibiotic meropenem 1 g IV piggyback every 8 hours, metronidazole 500 mg IV piggyback every 8 hours, continue current pain management, monitor the patient respiratory status. Most likely, patient will be cleared for surgery on Thursday. Surgery is scheduled for today. 2. Acute kidney injury due to poor oral intake of fluid and acute tubular necrosis. Continue IV fluid resuscitation normal saline 100 mL an hour, monitor input and output and daily weight, check the patient CMP tomorrow morning. 3. Hyperkalemia likely related to acute kidney injury. Continue IV fluid resuscitation and repeat her potassium level in the next few hours. 4. Metabolic encephalopathy secondary to acute kidney injury as well as incarcerated large ventral hernia. Continue IV fluid, continue IV antibiotic, monitor the patient very closely. Much better 5. Chronic kidney failure CKD stage II currently with acute kidney injury continue IV fluid resuscitation repeat CMP tomorrow morning. 6. CAD and non-ischemic cardiomyopathy and chronic diastolic heart failure with ejection fraction of 50%. We will maintain the patient on metoprolol 7. Hypertension and hypertensive cardiovascular disease. Continue metoprolol, hold lisinopril for now. 8. Sjogren syndrome. We'll hold off Salagen 9. Anemia of chronic medical illnesses. Continue to monitor the patient's CBC over the next 24 hours. 10. Chronic pain syndrome. We will hold off oral medication start the patient on IV pain management. 11. Overactive bladder. Discontinue Detrol. 12. 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 Appears to be at baseline. 13. History of rectal cancer post-low anterior resection with colostomy placement . 14. DVT prophylaxis. Start the patient on Lovenox 30 mg subcutaneously every 24 hours. 15. GI prophylaxis. Protonix 40 mg IV push every 24 hours. 16. Recurrent depression. Continue Zyprexa and Lexapro. 17. Acute urinary tract infection. Discontinue Rocephin and start meropenem 1 g IV piggyback every 8 hours.. 18. Valvular heart disease with [id number] mitral regurgitation, [id number] tricuspid regurgitation and mild to moderate pulmonary hypertension. 19. Hypernatremia. IV fluids changed to D5 at 50 mL per hour. 20. Sinus tachycardia and atrial fibrillation. Patient continued on Cardizem drip. 21. Metabolic encephalopathy secondary to acute kidney injury, hyponatremia, incarcerated ventral hernia, Covid 19, UTI. MRI of the brain negative for acute findings. CODE STATUS: Full code Guarded prognosis. Discharge Plan: Return to [facility] Impression and plan of care have been directed as dictated by the signing phys iciamanda. Caitlin Francis nurse practitioner acting as scribe for signing physician.
--- NOTE | 2020-04-30 15:56 | XR ---
EXAMINATION TYPE: XR chest 1V portable DATE OF EXAM: 04/30/2020 Comparison: 04/28/2020 Clinical History: 85-year-old female shortness of breath Findings: Rightward patient rotation alters the normal cardiac and mediastinal contours. A couple levels of tg tebroplasty in the mid thoracic spine and also within the visualized upper lumbar spine. Old healed f racture deformity proximal right humerus. Old left-sided rib fracture deformities. Low lung volumes. Patchy bibasilar densities with small left effusion and interstitial opacities, right greater than le ft without significant change. Impression: Limited portable, rotated exam. Overall stable appearance to the interstitial infiltrates right great er than left and patchy bibasilar opacities particularly on the left with a small effusion. Consider CHF as a possible etiology.
[2020-04-30 16:20] LABS: ABG HCO3 23 mmol/L (21-25); ABG Oxygen Saturation 97.8 % (94-97); ABG PCO2 44 mmHg (35-45); ABG PH 7.32 (7.35-7.45); ABG PO2 100 mmHg (83-108); ABG TCO2 24 mmol/L (19-24); Allen Test Performed? Yes
--- NOTE | 2020-04-30 16:33 | P.CNPUL ---
History of Present Illness Consult date: 04/30/20 Reason for consult: dyspnea History of present illness: This is an 85-year-old female patient who underwent repair of parastomal hernia. The patient has history of rectal cancer and she has undergone a low AP resection with colostomy and the patient came into the hospital because of significant abdominal pain as well as constipation over the past 2 days as the patient resides at [facility] [place] She was given Dulcolax suppositories t hrough the stoma and she was also started on lactulose 30 g twice a day and she continued to complain of increased abdominal pain and distention and she was not able to have any bowel movements with the stoma. X-ray showed nonobstructive gas pattern and significant stool buildup and the patient was having increased amount of pain along with nausea and she was unable to drink and eat. At that point, a CAT scan of the abdomen was done that showed large right-sided abdominal wall ventral hernia that contained multiple loops of small bowel measuring about 6 x 12 cm in size and the opening was 5.5 cm and the small bowel measuring up to 3.5 cm in diameter and there was incarceration and some mild dilated loops of small bowel consistent with a partial mechanical obstruction related to the hernia. Note that the patient was taken to the operating room today. Preoperatively, she was having some encephalopathy and she seemed to be gradually improving with conservative management. He was taken to the OR and she underwent exploratory laparotomy, repair of a parastomal hernia, lysis of adhesions, partial colectomy and repair of an incisional hernia and partial omentectomy. The estimated blood loss was only 100 mL. The previously inserted tachycardia colostomy was transected and it was replaced on the other side in the left upper quadrant. Postextubation, the patient some increased difficulty breathing. She was kept on a BiPAP at a pressure of 12/60 to me as of water and FiO2 of 50% and currently she is in the intensive care unit. Chest x-ray and blood gases are still pending. The patient was quite obtunded at a time of arrival and she is gradually recovering her level of consciousness for now. She is currently on IV fluids with normal state rate of 50 mL an hour. She is also taking a combination of Flagyl and meropenem as broad-spectrum antibiotics patient on Lovenox 40 mg subcu for DVT prophylaxis. Blood work from this morning showed a hemoglobin of 11.3 with a white cell count of 8.7. Function is stable with a creatinine of 0.7. The patient's albumin was down to 2.5 with a total protein of 5.5. SGPT and SGOT l within normal limits. Review of Systems lethargic post op and she was obtunded upon arrival to the ICU Past Medical History Past Medical History: Asthma, Coronary Artery Disease (CAD), Cancer, Hyperlipidemia, Hypertension, Memory Impairment, Musculoskeletal Disorder, Osteoarthritis (OA), Sleep Apnea/CPAP/BIPAP Additional Past Medical History / Comment(s): Sjogren syndrome, RECTAL CANCER post resection and the patient has a colostomy, CAD , nonischemic cardiomyopathy with diastolic heart failure ejection fraction of 50%, hypertension, chronic pain, overactive bladder, vascular dementia, valvular heart disease with wbgi-dy-lysdntip MR and aoot-mb-rezynjoq pulmonary hypertension, chronic back pain, frequent falls, history of L4 spine fractures History of Any Multi-Drug Resistant Organisms: ESBL, MRSA Date of last positivie culture/infection: 09/21/18 MRSA; 09/30/19 ESBL E.COLI MDRO Source:: Back-MRSA; Urine-ESBL Past Surgical History: Adenoidectomy, Appendectomy, Back Surgery, Bowel Resection, Breast Surgery, Heart Catheterization, Hysterectomy, Tonsillectomy, Uterine Ablation Additional Past Surgical History / Comment(s): PERMANENT COLOSTOMY. throat surgery removed uvula,L3-L4 two fractured vertebrae, sofi cataracts, kyphoplasty L4, PICCLINE IN MAY FOR ABX(PNE) SINCE REMOVED. PICC LINE PLACEMENT, COLONOSCOPY, EGD, UTI 08/2017 Past Anesthesia/Blood Transfusion Reactions: No Reported Reaction Additional Past Anesthesia/Blood Transfusion Reaction / Comment(s): HX OF BLOOD TRANSFUSION Past Psychological History: No Psychological Hx Reported Smoking Status: Never smoker Past Alcohol Use History: None Reported Past Drug Use History: None Reported - Past Family History Mother History Unknown: Yes Family Medical History: Dialysis, Renal Disease Brother(s) History Unknown: Yes Family Medical History: No Reported History Sister(s) History Unknown: Yes Family Medical History: No Reported History Additional Family Medical History / Comment(s): Parkinsons Father Family Medical History: Cancer, CVA/TIA Additional Family Medical History / Comment(s): 3 out of 4 siblings dx. autoimm une disease Medications and Allergies Home Medications Medication Instructions Recorded Confirmed Type Escitalopram [Lexapro] 10 mg PO DAILY@0900 08/27/18 04/20/20 History Pilocarpine HCl [Salagen] 7.5 mg PO TID@0600,1400,2200 09/19/18 04/20/20 History Sennosides/Docusate Sodium [Dok 1 tab PO BID@0900,209909/19/18 04/20/20 History Plus Tablet] Cholecalciferol [Vitamin D3 (25 1,000 unit PO DAILY@89902/14/19 04/20/20 History Mcg = 1000 Iu)] Vit C/E/Zn/Coppr/Lutein/Zeaxan 1 cap PO DAILY@89902/14/19 04/20/20 History [Preservision Areds 2 Softgel] Tolterodine Tartrate [Detrol LA] 4 mg PO DAILY@59902/15/19 04/20/20 History Acetaminophen Tab [Tylenol] 650 mg PO TID@0600,1400,219912/12/19 04/20/20 History Albuterol Sulfate [Proair 1 puff INHALATION RT-QID PRN 12/12/19 04/20/20 History Respiclick] Ammonium Lactate Lotion 1 applic TOPICAL HS 12/12/19 04/20/20 History [Lac-Hydrin 12% Lotion] Gabapentin 300 mg PO BID@0900,2099 #6 cap 12/12/19 04/20/20 Rx Lansoprazole 30 mg PO DAILY@59912/12/19 04/20/20 History Losartan [Cozaar] 50 mg PO DAILY@89912/12/19 04/20/20 History Magnesium Oxide 400 mg PO BID@0900,209912/12/19 04/20/20 History Methyl Salicylate/Menthol 1 patch TRANSDERM DAILY@89912/12/19 04/20/20 History [Salonpas Patch] Metoprolol Succinate [Toprol XL] 25 mg PO HS@209912/12/19 04/20/20 History OLANZapine [ZyPREXA] 7.5 mg PO HS@209912/12/19 04/20/20 History Ondansetron [Zofran] 4 mg PO Q6H PRN 12/12/19 04/20/20 History Propylene Glycol/Peg 400/Pf 1 drop BOTH EYES Q6H 12/12/19 04/20/20 History [Systane 0.3-0.4% Eye Drop] Z-Guard 1 applic TOPICAL Q12H 12/12/19 04/20/20 History cycloSPORINE 0.05% OPHTH SOLN 1 drop BOTH EYES BID@0900,2100 12/12/19 04/20/20 History [Restasis] oxyCODONE-APAP 7.5-325MG [Percocet 0.5 tab PO Q8H PRN #5 tab 12/12/19 04/20/20 Rx 7.5-325 mg] Fluticasone Propionate [Flovent 1 puff INHALATION RT-BID@0900,209904/20/20 04/20/20 History Hfa 220 mcg] Furosemide [Lasix] 40 mg PO DAILY@0900 04/20/20 04/20/20 History Lactulose [Cephulac] 20 gm PO BID@0900,209904/20/20 04/20/20 History Allergies Allergy/AdvReac Type Severity Reaction Status Date / Time aspirin Allergy Anaphylaxis Verified 04/20/20 16:29 caffeine Allergy CREATES Verified 04/20/20 16:29 TOO MUCH STOMACH ACID celecoxib [From Celebrex] Allergy Rash/Hives Verified 04/20/20 16:29 codeine Allergy Anaphylaxis Verified 04/20/20 16:29 doxycycline Allergy Unknown Verified 04/20/20 16:29 hydrocodone bitartrate Allergy Unknown Verified 04/20/20 16:29 [From [place]] milk Allergy Unknown Verified 04/20/20 16:29 Penicillins Allergy Rash/Hives Verified 04/20/20 16:29 rofecoxib [From Vioxx] Allergy Rash/Hives Verified 04/20/20 16:29 clarithromycin [From Biaxin] AdvReac Nausea Verified 04/20/20 16:29 clindamycin AdvReac Nausea Verified 04/20/20 16:29 levofloxacin [From Levaquin] AdvReac Nausea Verified 04/20/20 16:29 Morpholine Analogues AdvReac Confusion Verified 04/20/20 16:29 ranitidine HCl [From Zantac] AdvReac Rash/Hives Verified 04/20/20 16:29 Physical Exam Vitals: Vital Signs Temp Pulse Pulse Resp BP BP Pulse Ox 04/30/20 15:00 96.3 F L 78 19 106/53 93 L 04/30/20 14:30 74 23 100/45 94 L 04/30/20 08:00 97.8 F 87 16 135/69 96 04/30/20 04:12 98.1 F 75 18 144/76 98 04/30/20 01:48 16 04/29/20 23:55 97.4 F L 78 16 145/67 97 04/29/20 19:32 97.8 F 78 16 154/71 98 04/29/20 16:00 70 125/66 94 L Intake and Output 04/30/20 04/30/20 04/30/20 06:59 14:59 22:59 Intake Total 550 1400 139.167 Output Total 600 400 100 Balance -50 1000 39.167 Intake: IV 1400 50 Sodium Chloride 0.9% 1, 50 000 ml @ 50 mls/hr IV . Q20H [facility] Rx#:[id number] Intake, IV Titration 550 89.167 Amount Diltiazem 125 mg In 89.167 Sodium Chloride 0.9% 100 ml @ 10 MG/HR 10 mls/hr IV .[id number] [facility] Rx#: [id number] Sodium Chloride 0.9% 1, 450 000 ml @ 50 mls/hr IV . Q20H [facility] Rx#:[id number] metroNIDAZOLE-NS PMX 500 100 mg In Saline 1 100ml.bag @ 100 mls/hr IVPB Q8HR [facility]NA Rx#:[id number] Oral 0 Output: Urine 400 350 100 Uretheral (Baez) 300 Urine/Stool Mix 200 Estimated Blood Loss 50 Other: Voiding Method Indwelling Catheter Indwelling Catheter Weight 69 kg Appearance the patient is lethargic and sleepy somewhat obtunded postop and she is currently on a BiPAP with a full face mask at a pressure of 12/6 cm of water. She is tolerating the BiPAP well without any major issues at this point in ti id. Head exam was generally normal. There was no scleral icterus or corneal arcus. Mucous membranes were moist. Neck was supple and without jugular venous distension, thyromegaly, or carotid bruits. Carotids were easily palpable bilaterally. There was no adenopathy. Mucous membranes are relatively dry. Lungs sounds are diminished bilaterally especially in the lung bases. Few scattered expiratory rhonchi. Otherwise clear. Cardiac exam revealed the PMI to be normally situated and sized. The rhythm was regular and no extrasystoles were noted during several minutes of auscultation. The first and second heart sounds were normal and physiologic splitting of the second heart sound was noted. There were no murmurs, rubs, clicks, or gallops. There is infected systolic ejection murmur grade 2/6 heard over the left upper sternal border. Abdomen is soft. It is slightly distended. There is a surgical wound site over the previously inserted colostomy savages dry and clean and intact. There is a newly constructed colostomy on the left and bowel sounds are quite diminished. No direct tenderness. No rebound tenderness. No guarding. Extremities revealed trace edema. No cyanosis. No clubbing. Diminished pulses in all 4 extremities. Neurologically, the patient is still sedated post anesthesia. Withdraws to painful stimulation. No focal neurological deficit. Results - Laboratory Findings CBC and BMP: 04/30/20 06:21 04/30/20 06:21 PT/INR, D-dimer PT 10.2 sec (9.0-12.0) 04/20/20 14:57 INR 0.9 (<1.2) 04/20/20 14:57 D-Dimer 1.06 mg/L FEU (<0.60) H 04/22/20 13:55 Abnormal lab findings: Abnormal Labs 04/20/20 04/20/20 04/20/20 14:57 14:57 14:57 WBC RBC Hgb Neutrophils # 8.1 H Lymphocytes # 0.9 L D-Dimer Sodium 130 L Potassium 5.8 H Chloride 92 L Carbon Dioxide BUN 69 H Creatinine 1.73 H Glucose 113 H Calcium Total Protein Albumin Amylase <30 L Lipase 11 L Vitamin B12 RBC Folate Urine Appearance Cloudy H Urine Protein Trace H Urine Ketones Urine Nitrite Positive H Ur Leukocyte Esterase Large H Urine WBC 121 H Urine WBC Clumps Few H Urine Bacteria Moderate H Urine Mucus Rare H Coronavirus (PCR) 04/20/20 04/20/20 04/20/20 18:13 19:00 19:00 WBC RBC Hgb Neutrophils # 7.8 H Lymphocytes # 0.9 L D-Dimer Sodium 133 L Potassium Chloride Carbon Dioxide BUN 60 H Creatinine 1.52 H Glucose 103 H Calcium 8.1 L Total Protein Albumin 3.4 L Amylase Lipase Vitamin B12 RBC Folate Urine Appearance Urine Protein Urine Ketones Urine Nitrite Ur Leukocyte Esterase Urine WBC Urine WBC Clumps Urine Bacteria Urine Mucus Coronavirus (PCR) Detected A 04/21/20 04/21/20 04/22/20 06:36 06:36 13:55 WBC RBC Hgb Neutrophils # 9.2 H Lymphocytes # 0.4 L D-Dimer 1.06 H Sodium 135 L Potassium Chloride Carbon Dioxide 21 L BUN 46 H Creatinine 1.06 H Glucose Calcium Total Protein Albumin 3.4 L Amylase Lipase Vitamin B12 RBC Folate Urine Appearance Urine Protein Urine Ketones Urine Nitrite Ur Leukocyte Esterase Urine WBC Urine WBC Clumps Urine Bacteria Urine Mucus Coronavirus (PCR) 04/23/20 04/23/20 04/24/20 07:06 07:06 07:51 WBC 14.7 H RBC 3.77 L Hgb Neutrophils # 13.3 H Lymphocytes # 0.6 L D-Dimer Sodium 148 H Potassium 3.2 L Chloride 110 H 113 H Carbon Dioxide 16 L 20 L BUN 21 H 25 H Creatinine 1.12 H Glucose 128 H 122 H Calcium Total Protein Albumin Amylase Lipase Vitamin B12 RBC Folate Urine Appearance Urine Protein Urine Ketones Urine Nitrite Ur Leukocyte Esterase Urine WBC Urine WBC Clumps Urine Bacteria Urine Mucus Coronavirus (PCR) 04/24/20 04/24/20 04/24/20 08:08 17:35 17:35 WBC 15.7 H RBC 3.52 L Hgb 11.0 L Neutrophils # 13.9 H Lymphocytes # 0.7 L D-Dimer Sodium Potassium Chloride Carbon Dioxide BUN Creatinine Glucose Calcium Total Protein Albumin Amylase Lipase Vitamin B12 1258.0 H RBC Folate 834 H Urine Appearance Urine Protein Urine Ketones Urine Nitrite Ur Leukocyte Esterase Urine WBC Urine WBC Clumps Urine Bacteria Urine Mucus Coronavirus (PCR) 04/25/20 04/26/20 04/26/20 08:59 07:39 07:39 WBC 20.9 H RBC 3.62 L Hgb 11.2 L Neutrophils # 18.8 H Lymphocytes # 0.9 L D-Dimer Sodium 147 H 147 H Potassium Chloride 113 H 115 H Carbon Dioxide BUN 26 H 23 H Creatinine 1.05 H Glucose 151 H 123 H Calcium Total Protein Albumin 3.1 L Amylase Lipase Vitamin B12 RBC Folate Urine Appearance Urine Protein Urine Ketones Urine Nitrite Ur Leukocyte Esterase Urine WBC Urine WBC Clumps Urine Bacteria Urine Mucus Coronavirus (PCR) 04/27/20 04/28/20 04/28/20 06:44 07:20 17:28 WBC RBC Hgb Neutrophils # Lymphocytes # D-Dimer Sodium 146 H 134 L Potassium Chloride 114 H 108 H Carbon Dioxide BUN 23 H 20 H Creatinine Glucose 122 H 116 H Calcium 7.5 L 7.7 L Total Protein 5.6 L Albumin 2.5 L Amylase Lipase Vitamin B12 RBC Folate Urine Appearance Urine Protein Urine Ketones Urine Nitrite Ur Leukocyte Esterase Urine WBC Urine WBC Clumps Urine Bacteria Urine Mucus Coronavirus (PCR) 04/28/20 04/29/20 04/29/20 17:45 07:05 07:05 WBC 13.1 H RBC 3.62 L Hgb Neutrophils # 11.0 H Lymphocytes # D-Dimer Sodium 133 L Potassium Chloride Carbon Dioxide BUN Creatinine Glucose 105 H Calcium 8.0 L Total Protein Albumin Amylase Lipase Vitamin B12 RBC Folate Urine Appearance Urine Protein 1+ H Urine Ketones Trace H Urine Nitrite Ur Leukocyte Esterase Small H Urine WBC Urine WBC Clumps Urine Bacteria Urine Mucus Rare H Coronavirus (PCR) 04/30/20 04/30/20 06:21 06:21 WBC RBC 3.63 L Hgb 11.3 L Neutrophils # Lymphocytes # D-Dimer Sodium 136 L Potassium Chloride Carbon Dioxide BUN Creatinine Glucose Calcium 8.0 L Total Protein 5.5 L Albumin 2.5 L Amylase Lipase Vitamin B12 RBC Folate Urine Appearance Urine Protein Urine Ketones Urine Nitrite Ur Leukocyte Esterase Urine WBC Urine WBC Clumps Urine Bacteria Urine Mucus Coronavirus (PCR) Assessment and Plan Plan: 1 exploratory laparotomy, repair of a parastomal hernia and lysis of adhesions with partial colectomy and repair of an incisional hernia and partial omentectomy. The patient is postop day #0. Surgery was done for incarcerated bowel within the large parastomal hernia. The patient mechanical obstruction and the patient a bowel obstruction. 2 acute hypoxic respiratory failure, post abdominal surgery and the patient is currently on a BiPAP at a pressure of 12/6 with an FiO2 of 50%. Awaiting chest x-ray and blood gases. 3 Altered mentation, consider metabolic encephalopathy and underlying dementia. In addition, the patient is still recovering from anesthetics and the patient arrived from the operating room. 4 acute kidney injury, improving and the patient is receiving fluid and the creatinine is normalized 5 metabolic encephalopathy secondary to above with altered mentation 6 chronic stage II kidney disease, renal function is normalized with fluids 7 coronary artery disease 8 history of diastolic heart failure with an ejection fraction of 50% 8 hypertension 9 Sjogren syndrome 10 chronic anemia 11 chronic pain syndrome 12 overactive bladder 13 vascular dementia 14 history of rectal cancer post low AP resection and the patient had a colostomy, details discussed above 15 valvular heart disease with mild to moderate MR and TR and mild to moderate pulmonary hypertension 16 atrial fibrillation currently on a Cardizem drip at 10 mg an hour, rate is controlled for now Plan Obtain chest x-ray and a blood gas Keep the patient on BiPAP for now until the patient's neurologic status recovers further as the patient is quite obtunded this point in time Increase IV fluids to 100 mL an hour Monitor urine output and the blood pressure Continue same antibiotic coverage includes a combination of Merrem and Flagyl Keep Cardizem drip and wean it off gradually based on the heart rate response Lovenox 40 mg subcu for DVT prophylaxis Hold oral medications for now We'll continue to follow
[2020-04-30] MEDS: HYDROmorphone 1 MG/ML 1 ML SYRINGE IVP PRN ×2 (18:57→21:21)
[2020-04-30] MEDS: OLANZapine 7.5 MG TAB PO SCH (20:17)
[2020-04-30] MEDS: AMMONIUM LACTATE 12% LOTION 225 GM BTL TOPICAL SCH (21:12)
[2020-05-01] MEDS: metroNIDAZOLE-NS PMX 500 MG in SALINE 1 100ML.BAG IVPB SCH ×3 (00:04→15:26)
[2020-05-01] MEDS: HYDROmorphone 1 MG/ML 1 ML SYRINGE IVP PRN ×6 (00:16→20:31)
[2020-05-01] MEDS: oxyCODONE-APAP 7.5-325MG 1 EACH TAB PO PRN (02:08)
[2020-05-01 03:51] LABS: Basophils # (A) 0.1 k/uL (0-0.2); Basophils % (A) 0 %; Eosinophils # (A) 0.3 k/uL (0-0.7); Eosinophils % (A) 2 %; HCT 37.7 % (34.0-46.0); Hypochromasia Slight; Lymphocytes # (A) 0.7 k/uL (1.0-4.8); Lymphocytes % (A) 4 %; MCH 31.7 pg (25.0-35.0); MCHC 31.9 g/dL (31.0-37.0); MCV 99.5 fL (80.0-100.0); Monocytes # (A) 0.6 k/uL (0-1.0); Monocytes % (A) 4 %; Neutrophils # (A) 15.8 k/uL (1.3-7.7); Neutrophils % (A) 89 %; Platelet Count 214 k/uL (150-450); RBC 3.79 m/uL (3.80-5.40); WBC 17.8 k/uL (3.8-10.6)
[2020-05-01 04:02] LABS: Albumin 2.7 g/dL (3.5-5.0); Calcium 8.1 mg/dL (8.4-10.2); Potassium 4.3 mmol/L (3.5-5.1); Total Bilirubin 0.4 mg/dL (0.2-1.3); Total Protein 5.9 g/dL (6.3-8.2)
[2020-05-01] MEDS: SODIUM CHLORIDE 0.9% 1,000 ML IV SCH ×2 (04:02→17:39)
[2020-05-01] MEDS: MEROPENEM 1 GM in SODIUM CHLORIDE 0.9% 100 ML IVPB SCH (04:13)
--- NOTE | 2020-05-01 06:33 | XR ---
EXAMINATION TYPE: XR chest 1V DATE OF EXAM: 05/01/2020 CLINICAL HISTORY: Difficulty breathing progress study. TECHNIQUE: Single AP portable semiupright view of the chest is obtained. COMPARISON: Chest x-ray from one day earlier and older studies. CTA chest April 22, 2020 FINDINGS: Osseous structures remain demineralized. Old impacted fracture right proximal humerus rede monstrated. Old posterior lateral left mid rib fracture redemonstrated. Persistent mild cardiomegaly with atherosclerotic thoracic aorta. Persistent low lung volumes and chronic parenchymal changes with bilateral multifocal increased opacities greater in the right lung and small bilateral pleural effus ions. IMPRESSION: Low lung volumes and mild cardiomegaly with small bilateral pleural effusions and multifo harshad right greater than left acute infiltrates and/or atelectasis. No significant change from one day earlier.
[2020-05-01] MEDS: FLUTICASONE 220 MCG INHALER INHALATION SCH (07:38)
[2020-05-01] MEDS: ALBUTEROL HFA INHALER INHALATION PRN (07:38)
[2020-05-01] MEDS: PANTOPRAZOLE 40 MG/10 ML VIAL IVP SCH (08:16)
[2020-05-01] MEDS: cycloSPORINE 0.05% OPHTH 0.4 ML DROPERETTE BOTH EYES SCH ×2 (08:16→20:30)
[2020-05-01] MEDS: ENOXAPARIN 40 MG/0.4 ML SYRINGE SQ SCH (08:16)
[2020-05-01] MEDS ORDERED: FUROSEMIDE 10 MG/ML 4 ML VIAL IV STA ×2 (08:46→12:46)
[2020-05-01] MEDS: SODIUM BICARBONATE TAB 650 MG TAB PO SCH ×3 (08:54→20:26)
[2020-05-01] MEDS: LACTULOSE 20 GM/30 ML CUP PO SCH ×2 (08:54→20:25)
[2020-05-01] MEDS: ESCITALOPRAM 10 MG TAB PO SCH (08:54)
[2020-05-01] MEDS: METOPROLOL SUCCINATE (ER) 25 MG TAB.ER.24H PO SCH ×2 (08:54→22:04)
--- NOTE | 2020-05-01 09:06 | P.PN ---
Subjective Progress Note Date: 05/01/20 This is an 85-year-old female patient who underwent repair of parastomal hernia. The patient has history of rectal cancer and she has undergone a low AP resection with colostomy and the patient came into the hospital because of significant abdominal pain as well as constipation over the past 2 days as the patient resides at [facility] on the [place]. She was given Dulcolax suppositories through the stoma and she was also started on lactulose 30 g twice a day and she continued to complain of increased abdominal pain and distention and she was not able to have any bowel movements with the stoma. X-ray showed nonobstructive gas pattern and significant stool buildup and the patient was having increased amount of pain along with nausea and she was unable to drink and eat. At that point, a CAT scan of the abdomen was done that showed large right-sided abdominal wall ventral hernia that contained multiple loops of small bowel measuring about 6 x 12 cm in size and the opening was 5.5 cm and the small bowel measuring up to 3.5 cm in diameter and there was incarceration and some mild dilated loops of small bowel consistent with a partial mechanical obstruction related to the hernia. Note that the patient was taken to the operating room today. Preoperatively, she was having some encephalopathy and she seemed to be gradually improving with conservative management. He was taken to the OR and she underwent exploratory laparotomy, repair of a parastomal hernia, lysis of adhesions, partial colectomy and repair of an incisional hernia and partial omentectomy. The estimated blood loss was only 100 mL. The previously inserted tachycardia colostomy was transected and it was replaced on the other side in the left upper quadrant. Postextubation, the patient some increased difficulty breathing. She was kept on a BiPAP at a pressure of 12/60 to me as of water and FiO2 of 50% and currently she is in the intensive care unit. Chest x-ray and blood gases are still pending. The patient was quite obtunded at a time of arrival and she is gradually recovering her level of consciousness for now. She is currently on IV fluids with normal state rate of 50 mL an hour. She is also taking a combination of Flagyl and meropenem as broad-spectrum antibiotics patient on Lovenox 40 mg subcu for DVT prophylaxis. Blood work from this morning showed a hemoglobin of 11.3 with a white cell count of 8.7. Function is stable with a creatinine of 0.7. The patient's albumin was down to 2.5 with a total protein of 5.5. SGPT and SGOT l within normal limits. On 05/01/2020 patient seen in follow-up in the intensive care unit, today is postoperative day #1, status post exploratory laparotomy, parastomal hernia repair, lysis of adhesions, partial colectomy, partial omentectomy, and repair of incisional hernia. This morning patient is awake, however she is encephalopathic, she is slow to respond, but does not appear to be in any acute distress other than some postoperative tenderness in her abdomen with light palpation, she is on 4 L of supplemental oxygen her pulse ox is 100%, she is breathing comfortably, she has been afebrile overnight, hemodynamically she is stable, she is on 0.9 normal saline at a rate of 100 ML per hour, no vasopressor support. Today's chest x-ray has been reviewed showing low lung volumes and mild cardiomegaly with small bilateral pleural effusions and multifocal right greater than left acute infiltrates and/or atelectasis. She is on Flagyl for antibiotic coverage, she's been afebrile overnight. Her incisions clean dry and intact, covered with surgical dressing, left lower quadrant colostomy is in place, with no gas or stool output in its. Patient has been nothing by mouth. Patient having 100% on 4 L, however she is frequently sleepy, she did wear BiPAP for several hours last night. Urine culture is positive for Providentia stuartii and Proteus mirabilis. There are hypoactive bowel sounds present. Lung sounds are positive for diminished breath sounds with scattered rales. Skin clean dry and warm, palpable distal pulses Objective - Vital Signs Vital signs: Vital Signs Temp 97.4 F L 05/01/20 04:00 Pulse 87 05/01/20 07:00 Resp 18 05/01/20 07:00 BP 99/48 05/01/20 07:00 Pulse Ox 100 05/01/20 07:00 Intake & Output 04/30/20 05/01/20 05/01/20 18:59 06:59 18:59 Intake Total 4590.263 6153 100 Output Total 505 115 5 Balance 5871.991 2664 95 Weight 69.8 kg Intake: IV 1600 1200 100 Sodium Chloride 0.9% 1, 100 1200 100 000 ml @ 100 mls/hr IV . Q10H [facility] Rx#:[id number] metroNIDAZOLE-NS PMX 500 100 mg In Saline 1 100ml.bag @ 100 mls/hr IVPB Q8HR [facility] Rx#:[id number] Intake, IV Titration 89.167 Amount Diltiazem 125 mg In 89.167 Sodium Chloride 0.9% 100 ml @ 10 MG/HR 10 mls/hr IV .[id number] [facility] Rx#: [id number] Output: Urine 455 115 5 Uretheral (Baez) 300 Estimated Blood Loss 50 Other: Voiding Method Indwelling Catheter Indwelling Catheter - Exam GENERAL EXAM: Somnolent, but arousable, 85-year-old white female, on 4 L of oxygen with a pulse ox of 100% comfortable in no apparent distress. HEAD: Normocephalic/atraumatic. EYES: Normal reaction of pupils, equal size. Conjunctiva pink, sclera white. NOSE: Clear with pink turbinates. THROAT: No erythema or exudates. NECK: No masses, no JVD, no thyroid enlargement, no adenopathy. CHEST: No chest wall deformity. Symmetrical expansion. LUNGS: Equal air entry with crackles, rhonchi CVS: Regular rate and rhythm, normal S1 and S2, no gallops, no murmurs, no rubs ABDOMEN: Soft, mildly tender, nonrigid, postoperative tenderness is present, mid abdominal incision is clean dry and intact, left lower quadrant colostomy with no gas or stool. No hepatosplenomegaly, normal bowel sounds, no guarding or rigidity. EXTREMITIES: No clubbing, diffuse generalized swelling, no cyanosis, 2+ pulses and upper and lower extremities. MUSCULOSKELETAL: Muscle strength and tone normal. SPINE: No scoliosis or deformity SKIN: No rashes CENTRAL NERVOUS SYSTEM: Sleepy, but arousable, confused. No focal deficits, tone is normal in all 4 extremities. - Labs CBC & Chem 7: 05/01/20 03:31 05/01/20 03:31 Labs: Abnormal Lab Results - Last 24 Hours (Table) 04/30/20 05/01/20 05/01/20 Range/Units 16:15 03:31 03:31 WBC 17.8 H (3.8-10.6) k/uL RBC 3.79 L (3.80-5.40) m/uL Neutrophils # 15.8 H (1.3-7.7) k/uL Lymphocytes # 0.7 L (1.0-4.8) k/uL ABG pH 7.32 L (7.35-7.45) ABG O2 Saturation 97.8 H (94-97) % Sodium 136 L (137-145) mmol/L Carbon Dioxide 21 L (22-30) mmol/L Glucose 126 H (74-99) mg/dL Calcium 8.1 L (8.4-10.2) mg/dL Total Protein 5.9 L (6.3-8.2) g/dL Albumin 2.7 L (3.5-5.0) g/dL Assessment and Plan Plan: Assessment: 1 exploratory laparotomy, repair of a parastomal hernia and lysis of adhesions with partial colectomy and repair of an incisional hernia and partial omentectomy. The patient is postop day #1. Surgery was done for incarcerated bowel within the large parastomal hernia. The patient mechanical obstruction and the patient a bowel obstruction. 2 acute hypoxic respiratory failure, post abdominal surgery and the patient is currently on a BiPAP at a pressure of 12/6 with an FiO2 of 50%. Chest x-ray shows low lung volumes, bilateral atelectasis/infiltrates, and small pleural effusions 3 Altered mentation, consider metabolic encephalopathy and underlying dementia. In addition, the patient is still recovering from anesthetics and the patient arrived from the operating room. 4 acute kidney injury, improving and the patient is receiving fluid and the creatinine is normalized 5 metabolic encephalopathy secondary to above with altered mentation 6 chronic stage II kidney disease, renal function is normalized with fluids 7 coronary artery disease 8 history of diastolic heart failure with an ejection fraction of 50% 8 hypertension 9 Sjogren syndrome 10 chronic anemia 11 chronic pain syndrome 12 overactive bladder 13 vascular dementia 14 history of rectal cancer post low AP resection and the patient had a colostomy, details discussed above 15 valvular heart disease with mild to moderate MR and TR and mild to moderate pulmonary hypertension 16 atrial fibrillation currently on a Cardizem drip at 10 mg an hour, rate is controlled for now Plan: We'll continue with IV fluids at 100 ML per hour, we'll give the patient 1 dose of Lasix, we will consult interventional radiology for placement of the PICC line, and consult dietitian for possibility of starting parenteral nutrition. Patient is still confused and sleepy, but appears to be in no acute distress, today's chest x-ray shows small pleural effusions, low lung volumes, bibasilar atelectasis, we'll place the patient on BiPAP support through the day as needed, may give trial is on nasal cannula. Continue current antibiotics. GI and DVT prophylaxis, maintain aspiration precautions. I performed a history & physical examination of the patient and discussed their management with my nurse practitioner, Jennifer Ernandez. I reviewed the nurse practitioner's note and agree with the documented findings and plan of care. Lung sounds are positive for diminished breath sounds. The findings and the impression was discussed with the patient. I attest to the documentation by the nurse practitioner. Time with Patient: Greater than 30
[2020-05-01] MEDS: DILTIAZEM 125 MG in SODIUM CHLORIDE 0.9% 100 ML IV SCH ×2 (09:31→20:43)
[2020-05-01] MEDS ORDERED: LIDOCAINE 1% INJ 10MG/ML (20 ML MDV) ONE (10:34)
[2020-05-01] MEDS ORDERED: LIDOCAINE 1% INJ 10MG/ML (20 ML MDV) SQ ONE (11:01)
--- NOTE | 2020-05-01 11:38 | XR ---
EXAMINATION TYPE: XR chest 1V confirm line [facility] [place] DATE OF EXAM: 05/01/2020 CLINICAL HISTORY: PICC line placement. TECHNIQUE: Single AP portable semiupright view of the chest is obtained. COMPARISON: Chest x-ray from earlier today an older studies FINDINGS: New Left-sided PICC line terminates in SVC. Osseous structures remain demineralized. Multilevel vertebroplasty in the mid thoracic spine redemons trated. Old impacted fracture right proximal humerus redemonstrated. Old posterior lateral left 5th r ib fracture redemonstrated. Persistent mild cardiomegaly with atherosclerotic thoracic aorta. Persistent low lung volumes and chr onic parenchymal changes with bilateral multifocal increased opacities and small bilateral pleural ef fusions are all redemonstrated. IMPRESSION: New left-sided PICC line terminating in SVC. No pneumothorax. Other findings stable.
[2020-05-01 11:41] LABS: Glucose,Whole Blood 111 mg/dL (75-99)
[2020-05-01] MEDS: INSULIN ASPART (NovoLOG) 100 UNIT/ML VIAL SQ SCH ×2 (11:56→17:40)
[2020-05-01] MEDS: MAGNESIUM SULFATE-D5W PMX 1 GM in DEXTROSE/WATER 1 100ML.BAG IVPB SCH ×2 (12:04→13:17)
--- NOTE | 2020-05-01 13:19 | P.PN ---
Subjective Progress Note Date: 05/01/20 CHIEF COMPLAINT: incarcerated parastomal hernia HISTORY OF PRESENT ILLNESS: This is a 85-year-old female with a previous history of diverticulitis and colostomy. Patient has developed a large parastomal h ernia with incarcerated small bowel. She has significant abdominal pain and problems with intermittent obstruction. Patient is currently in the ICU. She is status post exploratory laparotomy, repair of parastomal hernia, lysis of adhesions, partial colectomy, repair of incisional hernia and partial omentectomy. Patient is currently on the BiPAP. Per nursing she is reporting pain mostly on the right side. IV Dilaudid has been adjusted. She is afebrile. WBC is 17.8 PHYSICAL EXAM: VITAL SIGNS: Reviewed. GENERAL: Well-developed in no acute distress. HEENT: No sclera icterus. Extraocular movements grossly intact. Moist buccal mucosa. Head is atraumatic, normocephalic. ABDOMEN: Soft. Dressing minimal shadowing. Colostomy left lower quadrant. NEUROLOGIC: Patient is more awake and able to answer questions ASSESSMENT: 1. Incarcerated parastomal hernia, incisional hernia and adhesions status post exploratory laparotomy, repair of parastomal hernia, lysis of adhesions, partial colectomy, repair of incisional hernia and partial omentectomy PLAN: -Continue ICU management -Continue supportive care -Adjust IV Dilaudid dose for pain control -Abdominal dressing changed -GI prophylaxis Protonix and DVT prophylaxis Lovenox [employer] note has been reviewed by physician. Signing provider agrees with the documented findings, assessment, and plan of care. Objective - Vital Signs Vital signs: Vital Signs Temp 97.9 F 05/01/20 12:00 Pulse 96 05/01/20 12:00 Resp 22 05/01/20 12:00 BP 145/78 05/01/20 12:00 Pulse Ox 100 05/01/20 12:00 Intake & Output 04/30/20 05/01/20 05/01/20 18:59 06:59 18:59 Intake Total 2155.743 9391 600 Output Total 505 115 490 Balance 1945.221 0609 110 Weight 69.8 kg 69.8 kg Intake: IV 1600 1200 600 Magnesium Sulfate-D5w Pmx 100 1 gm In Dextrose/Water 1 100ml.bag @ 100 mls/hr IVPB Q1H [facility] Rx#: [id number] Sodium Chloride 0.9% 1, 100 1200 400 000 ml @ 100 mls/hr IV . Q10H [facility] Rx#:[id number] metroNIDAZOLE-NS PMX 500 100 100 mg In Saline 1 100ml.bag @ 100 mls/hr IVPB Q8HR [facility] Rx#:[id number] Intake, IV Titration 89.167 Amount Diltiazem 125 mg In 89.167 Sodium Chloride 0.9% 100 ml @ 10 MG/HR 10 mls/hr IV .[id number] [facility] Rx#: [id number] Output: Urine 455 115 490 Uretheral (Baez) 300 Estimated Blood Loss 50 Other: Voiding Method Indwelling Catheter Indwelling Catheter - Labs CBC & Chem 7: 05/01/20 03:31 05/01/20 03:31 Labs: Abnormal Lab Results - Last 24 Hours (Table) 04/30/20 05/01/20 05/01/20 Range/Units 16:15 03:31 03:31 WBC 17.8 H (3.8-10.6) k/uL RBC 3.79 L (3.80-5.40) m/uL Neutrophils # 15.8 H (1.3-7.7) k/uL Lymphocytes # 0.7 L (1.0-4.8) k/uL ABG pH 7.32 L (7.35-7.45) ABG O2 Saturation 97.8 H (94-97) % Sodium 136 L (137-145) mmol/L Carbon Dioxide 21 L (22-30) mmol/L Glucose 126 H (74-99) mg/dL POC Glucose (mg/dL) (75-99) mg/dL Calcium 8.1 L (8.4-10.2) mg/dL Total Protein 5.9 L (6.3-8.2) g/dL Albumin 2.7 L (3.5-5.0) g/dL 05/01/20 Range/Units 11:40 WBC (3.8-10.6) k/uL RBC (3.80-5.40) m/uL Neutrophils # (1.3-7.7) k/uL Lymphocytes # (1.0-4.8) k/uL ABG pH (7.35-7.45) ABG O2 Saturation (94-97) % Sodium (137-145) mmol/L Carbon Dioxide (22-30) mmol/L Glucose (74-99) mg/dL POC Glucose (mg/dL) 111 H (75-99) mg/dL Calcium (8.4-10.2) mg/dL Total Protein (6.3-8.2) g/dL Albumin (3.5-5.0) g/dL
--- NOTE | 2020-05-01 14:08 | IR ---
PICC LINE PLACEMENT: HISTORY: Infection requiring long-term antibiotic therapy PROCEDURE: Ultrasound guidance of PICC line placement. REHAB DEPARTMENT MANAGER: Dr. Pradhan. COMPLICATIONS: None ANESTHESIA: 1. 1% Lidocaine locally. FINDINGS/TECHNIQUE: The procedure was explained to the patient. The risks, complications, benefits and alternatives were discussed and any questions were answered. Informed consent was obtained. The patient was placed supine on the fluoroscopic table and prepped and draped in the usual sterile fas ion. Utilizing a 21 gauge needle and sonographic guidance, access in the left basilic vein was achi eved and there is placement of a 0.018 guidewire. The vein is patent. A 5-F. sheath was placed over the guidewire. The guidewire and dilator were removed and a 5-F. Double lumen PICC line was placed through the sheath with the chest x-ray confirming the tip at the level of the SVC. The sheath was r emoved, the catheter was flushed and sutured into position. The patient was stable throughout the pr ocedure and remained stable upon discharge from the Department of Radiology. The vein puncture was patent under ultrasound. A siddiqui scale image was obtained to document patency of the vein punctured. All elements of the maximal barrier technique were utilized. IMPRESSION: 1. Successful PICC line placement under ultrasound performed bedside within the ICU.
[2020-05-01] MEDS: HYDROmorphone 0.5 MG/0.5 ML SYRINGE IVP PRN ×2 (15:25→22:05)
--- NOTE | 2020-05-01 15:33 | P.PN ---
Subjective Progress Note Date: 05/01/20 This is an 85-year-old female patient of Dr. Garcia and Dr. Pulido with past medical history of asthma, CAD with ischemic cardiomyopathy, previous history of lung cancer post resection who is known to have severe lower back pain, history of Klebsiella pneumoniae ESBL urinary tract infection, memory impairment, rectal cancer post low anterior resection with colostomy placement and she has had her stoma moved from one side to the other times to with significant peristomal hernia, patient developed to have a significant abdominal pain as well as constipation over the last few days at [facility] at that time she was given a Dulcolax suppository through the stoma and she was started on lactulose 30 g orally twice every day patient has been complaining of increased abdominal pain and distention not able to have a good BM through the stoma, an x-ray was done over there and that showed nonobstructive gas pattern with significant stool buildup, patient today was having increased amount of pain associated with nausea and not able to eat or drink she was dehydrated as well has not been eating much over the last few days, she was directed to go to the emergency department at [facility] where she was found to have an acute kidney injury as well a hyperkalemia, patient underwent CT abdomen and pelvis without contrast that showed a large right side abdominal wall ventral hernia that contains multiple loops of the small bowel hernia measures about 612 cm the opening is 5.5 cm the small bowel measures up to 3.5 cm in diameter there was incarcerated in and some mildly dilated loops of small bowel consistent with partial mechanical obstruction related to the hernia, patient was started on IV fluid as well as IV antibiotic, and surgical consultation was obtained from and had a long conversation with the emergency room physician on the complexity of the case and if the patient is not a candidate for any surgical intervention at [facility] she will need to be transferred to [facility], this was discussed with her over the phone. 04/21: Patient sitting up in bed in no apparent distress, she appears to be a bit short of breath, her IV fluids were decreased to 75 mL an hour, we'll monitor her input and output and daily weight, she was seen in consultation by cardiology in preparation for surgical intervention will be planned for tomorrow morning, I spoke general surgery and they feel that the patient can the served here for a better quality of life, and there is no need for the patient be transferred to a tertiary care center, cardiology consultation was obtained, echocardiogram will be done, EKG was done also continue beta gume in the form of metoprolol 25 mg orally twice every day, monitor the patient very closely at this time hold off ANGELICA inhibitor due to her kidney function, nephrology seen the patient as well and she seems to be doing better. 04/22: Patient is laying down in bed in minimal respiratory distress, she did receive 40 mg Lasix earlier today because of expiratory wheezes and increased shortness of breath, portable chest x-ray and abdominal x-ray was obtained, we will hold off any surgery at this time until obtaining the result of the x-ray patient does have a good stool output and her stoma at this time, echo care gram still pending at the time of dictation, I believe the patient needs to be monitored for another 24 hours before any surgical intervention. 04/23: Patient known to have mental status changes. CAT scan of the brain ordered which revealed only chronic age-related changes with chronic small vessel ischemia. CTA of the chest done yesterday revealed no pulmonary embolism. T here is new bilateral pleural effusions and pulmonary infiltrates and atelectasis. Heart appeared increased in size with probable congestive heart failure. Large pulmonary arteries consistent with pulmonary hypertension unchanged. Multiple old thoracic compression fractures. New compression frac ture of T4. Patient is afebrile, heart rate 114, blood pressure 182/87, pulse ox 92% on room air. CBC 14.7, hemoglobin 12. Sodium 143, potassium 3.8, chloride 110, CO2 16, BUN 21 and creatinine 0.86. Urine culture is positive for Providencia stuartii. Rocephin will be discontinued and patient started on meropenem 1 g IV piggyback every 8 hours. Echocardiogram reveals EF of 55-60% with mild concentric left ventricular hypertrophy, mild to moderate mitral regurgitation, [id number] tricuspid regurgitation, mild to moderate pulmonary hypertension. 2: Patient continues to have increased confusion and noted to have difficulty swallowing. Speech therapy has evaluated with recommendations. Consult has also been added for neurology for dysphagia. Medications reviewed and patient r esumed on Zyprexa and Lexapro. Patient is afebrile, heart rate 89, blood pressure 160/70, pulse ox 97% on 2 L nasal cannula. There is slight and there is a slight rise in her leukocytosis of 15.7. Hemoglobin is 11. Sodium is 148 potassium 3.2, chloride 113, CO2 20, BUN 25 and creatinine 1.12. IV fluids transition to dextrose 5% at 60 mL/h. Cardiology ordered Cardizem drip for episode of atrial fibrillation. She is continued on IV antibiotics with meropenem and Flagyl. Patient's will be contacted via phone and updated. Patient is not stable at this time for surgical intervention. 2: Patient has been seen by neurology for metabolic encephalopathy. X-ray of the chest reveals improving left lower lobe infiltrate, scattered infiltrates still present bilaterally. Prominence of the heart and pulmonary vasculature. Correlate for heart failure, atypical pulmonary edema could be considered, atypical pneumonia is within differential. Sodium 147, potassium 3.5, chloride 113, BUN 26 and creatinine 1.05. Ammonia level less than 9. TSH 0.490. Nephrology has continued D5W. Patient is unresponsive to questions, not verbalizing, staring blankly. is at bedside. Discussed CODE STATUS with the patient's and he is unable to make a decision at this time oth er than to keep her full code. MRI of the brain ordered to rule out brainstem infarct. General surgery continues to follow for the large parastomal hernia with incarceration, to be done if patient is medically stable. 2: MRI of the brain reveals age-related atrophy with confluence chronic appea ring. Ventricular white matter ischemic type changes. EEG is abnormal with moderate to severe encephalopathy. Patient apparently said yes and no to the nurse today. There's been no seizure activity noted. Patient is eating less than 25% of her meals. IV fluids been increased to 100 mL per hour per nephrology. WBC 20.9, hemoglobin 11.2. Sodium 147, potassium 3.7, chloride 115, CO2 25, BUN 23 and creatinine 0.75. Blood sugar 123. 25: Patient's mental status is improving, she is more awake and alert today, able to answer questions. Speech therapy has evaluated and plan to start trials of diet. Ostomy is functioning. Sodium level is better today at 146. Potassium is 3.7, chloride 114, CO2 25, BUN 23 and creatinine 0.81. She is still on Cardizem drip for atrial fibrillation. She is been afebrile, heart rate in the 80s, blood pressure 130/61, pulse ox 90% on 1 L nasal cannula. Patient continues on D5W at 100 mL per hour. 04/30: Patient is awake and alert. Mental status is much improved. She is scheduled for surgery today with Dr. Falcon. Patient's is at bedside. She has been afebrile, heart rate 75, blood pressure 144/76, pulse ox 90% on room air. WBC 8.7, hemoglobin 11.3. Sodium 136 otherwise electrolytes renal function are normal. Liver function tests are normal. Air in the ostomy bag. No stool at this point. Baez catheter draining clear tobin urine. 05/01: Patient remains in the intensive care unit on BiPAP. Patient is able states she feels better from yesterday. She is status post exploratory laparotomy, parastomal hernia repair, lysis of adhesions, partial colectomy, partial omentectomy, and repair of incisional hernia, postop day #1 patient appears to be comfortable at rest. Pulse ox is 100% on BiPAP. She has been afebrile, heart rate 89, blood pressure 125/72. W BC 17.8, hemoglobin 12. Sodium 136, potassium 4.3, chloride 107, CO2 21, BUN 14 and creatinine 0.78. Liver function tests normal. Patient is known to have generalized edema. Patient was given 1 dose of IV Lasix this morning and we will plan to repeat that this afternoon. Patient is continued on IV Flagyl. Objective - Vital Signs Vital signs: Vital Signs Temp 97.9 F 05/01/20 12:00 Pulse 96 05/01/20 12:00 Resp 22 05/01/20 12:00 BP 145/78 05/01/20 12:00 Pulse Ox 100 05/01/20 12:00 Intake & Output 04/30/20 05/01/20 05/01/20 18:59 06:59 18:59 Intake Total 4740.533 9019 600 Output Total 505 115 490 Balance 6174.224 7319 110 Weight 69.8 kg 69.8 kg Intake: IV 1600 1200 600 Magnesium Sulfate-D5w Pmx 100 1 gm In Dextrose/Water 1 100ml.bag @ 100 mls/hr IVPB Q1H [facility] Rx#: [id number] Sodium Chloride 0.9% 1, 100 1200 400 000 ml @ 100 mls/hr IV . Q10H [facility] Rx#:[id number] metroNIDAZOLE-NS PMX 500 100 100 mg In Saline 1 100ml.bag @ 100 mls/hr IVPB Q8HR [facility] Rx#:[id number] Intake, IV Titration 89.167 Amount Diltiazem 125 mg In 89.167 Sodium Chloride 0.9% 100 ml @ 10 MG/HR 10 mls/hr IV .[id number] [facility] Rx#: [id number] Output: Urine 455 115 490 Uretheral (Baez) 300 Estimated Blood Loss 50 Other: Voiding Method Indwelling Catheter Indwelling Catheter - Exam Review of Systems Constitutional: Reports anorexia, Reports fatigue, denies lethargy, Reports malaise, Reports weakness, Reports weight loss Eyes: denies blurred vision, denies bulging eye, denies decreased vision Ears: bilateral: decreased hearing Ears, nose, mouth and throat: Denies dysphagia, Denies neck lump, Denies sore throat Cardiovascular: Denies chest pain, Denies decreased exercise tolerance, Denies dyspnea on exertion, Denies lightheadedness, Denies rapid heart beat, Denies shortness of breath, Denies syncope Respiratory: Denies congestion, Denies cough with sputum, Denies home oxygen, Denies sleep apnea, Denies snoring, Denies wheezing Gastrointestinal: Reports abdominal pain improved, Reports bloating, Reports constipation, Reports early satiety, Reports loss of appetite, Reports nausea, Reports vomiting Genitourinary: Denies dysuria, Denies nocturia Menstruation: Reports postmenopausal Musculoskeletal: Reports atrophy, Reports frequent falls, Reports gait dysfunction, Reports loss of height, Reports low back pain, Reports muscle weakness Musculoskeletal: absent: ankle pain, ankle stiffness, ankle swelling, elbow pain, elbow stiffness, elbow swelling, foot pain, foot stiffness, foot swelling, hand pain, hand stiffness, hand swelling, hip pain, hip stiffness, hip swelling, knee pain, knee stiffness, knee swelling, shoulder pain, shoulder stiffness, shoulder swelling, wrist pain, wrist stiffness, wrist swelling Integumentary: Denies pruritus, Denies rash Neurological: Reports balance difficulties, Reports gait dysfunction, Reports weakness, improved mental status Psychiatric: Denies anxiety, Denies depression Physical examination HEENT: Head is atraumatic, normocephalic, pupils were equal round reactive to light and accommodation, extraocular muscle movement were intact, sclera nonicteric conjunctiva are pale, mucous membranes of mouth are dry. Neck: Supple, no JVD, decreased carotid upstroke bilaterally. Chest: There is significant kyphosis present, decreased breath sounds at the bases, few rhonchi, no expiratory wheezes, no chest wall tenderness, no intercostal retractions. Heart: First heart sound is depressed, second heart sounds normal, there is systolic ejection murmur 2/6 located in the left border. Abdomen: Soft and distended moderate tenderness of the right lower quadrant, there is peristomal hernia with significant ventral hernia in that area, associated with significant tenderness to palpation, positive for guarding, positive bowel sounds. Stoma bag is empty. Extremities: There is 1+ edema, no calf tenderness, dorsalis pedis +1 bilaterally. Neurologic examination: Patient is awake and alert, able to answer questions and follow simple commands - Labs CBC & Chem 7: 05/01/20 03:31 05/01/20 03:31 Labs: Abnormal Lab Results - Last 24 Hours (Table) 04/30/20 05/01/20 05/01/20 Range/Units 16:15 03:31 03:31 WBC 17.8 H (3.8-10.6) k/uL RBC 3.79 L (3.80-5.40) m/uL Neutrophils # 15.8 H (1.3-7.7) k/uL Lymphocytes # 0.7 L (1.0-4.8) k/uL ABG pH 7.32 L (7.35-7.45) ABG O2 Saturation 97.8 H (94-97) % Sodium 136 L (137-145) mmol/L Carbon Dioxide 21 L (22-30) mmol/L Glucose 126 H (74-99) mg/dL POC Glucose (mg/dL) (75-99) mg/dL Calcium 8.1 L (8.4-10.2) mg/dL Total Protein 5.9 L (6.3-8.2) g/dL Albumin 2.7 L (3.5-5.0) g/dL 05/01/20 Range/Units 11:40 WBC (3.8-10.6) k/uL RBC (3.80-5.40) m/uL Neutrophils # (1.3-7.7) k/uL Lymphocytes # (1.0-4.8) k/uL ABG pH (7.35-7.45) ABG O2 Saturation (94-97) % Sodium (137-145) mmol/L Carbon Dioxide (22-30) mmol/L Glucose (74-99) mg/dL POC Glucose (mg/dL) 111 H (75-99) mg/dL Calcium (8.4-10.2) mg/dL Total Protein (6.3-8.2) g/dL Albumin (3.5-5.0) g/dL Assessment and Plan Plan: 1. Large right lateral abdominal wall hernia with incarceration. Continue the patient on IV fluid in the form of normal saline at 50 mL an hour, monitor input and output and daily weight, pain control, this is a high-risk patient, we'll continue the patient on IV antibiotic meropenem 1 g IV piggyback every 8 hours, metronidazole 500 mg IV piggyback every 8 hours, continue current pain management, monitor the patient respiratory status. Most likely, patient will be cleared for surgery on Thursday. Surgery is scheduled for today. 2. Acute kidney injury due to poor oral intake of fluid and acute tubular necrosis. Continue IV fluid, monitor input and output and daily weight, check the patient CMP tomorrow morning. 3. Hyperkalemia likely related to acute kidney injury. Continue IV fluid resuscitation, improved. 4. Metabolic encephalopathy secondary to acute kidney injury as well as incarcerated large ventral hernia. Continue IV fluid, continue IV antibiotic, monitor the patient very closely. Much better 5. Chronic kidney failure CKD stage II currently with acute kidney injury continue IV fluid resuscitation repeat CMP tomorrow morning. 6. CAD and non-ischemic cardiomyopathy and chronic diastolic heart failure with ejection fraction of 50%. We will maintain the patient on metoprolol 7. Hypertension and hypertensive cardiovascular disease. Continue metoprolol, hold lisinopril for now. 8. Sjogren syndrome. We'll hold off [place] 9. Anemia of chronic medical illnesses. Continue to monitor the patient's CBC over the next 24 hours. 10. Chronic pain syndrome. We will hold off oral medication start the patient on IV pain management. 11. Overactive bladder. Discontinue Detrol. 12. 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 Appears to be at baseline. 13. History of rectal cancer post-low anterior resection with colostomy placement . 14. DVT prophylaxis. Start the patient on Lovenox 30 mg subcutaneously every 24 hours. 15. GI prophylaxis. Protonix 40 mg IV push every 24 hours. 16. Recurrent depression. Continue Zyprexa and Lexapro. 17. Acute urinary tract infection. Discontinue Rocephin and start meropenem 1 g IV piggyback every 8 hours.. 18. Valvular heart disease with [id number] mitral regurgitation, [id number] tricuspid regurgitation and mild to moderate pulmonary hypertension. 19. Hypernatremia. IV fluids changed to D5 at 50 mL per hour. 20. Sinus tachycardia and atrial fibrillation, paroxysmal. Patient continued on Cardizem drip. 21. Metabolic encephalopathy secondary to acute kidney injury, hyponatremia, incarcerated ventral hernia, Covid 19, UTI. MRI of the brain negative for acute findings. CODE STATUS: Full code Guarded prognosis. Discharge Plan: Return to [facility] Impression and plan of care have been directed as dictated by the signing physician. Caitlin Francis nurse practitioner acting as scribe for signing physician.
[2020-05-01 15:41] LABS: Phosphorus 4.5 mg/dL (2.5-4.5)
[2020-05-01 17:40] LABS: Glucose,Whole Blood 145 mg/dL (75-99)
[2020-05-01] MEDS ORDERED: MVI, ADULT NO.4 WITH VIT K 10 ML, TRACE (CONC-1ML/DOSE) 1 ML in AMINO ACID 5%-D20W+LYTE... IV SCH ×3 (20:00)
[2020-05-01] MEDS: AMMONIUM LACTATE 12% LOTION 225 GM BTL TOPICAL SCH (20:25)
[2020-05-01] MEDS: OLANZapine 7.5 MG TAB PO SCH (20:25)
[2020-05-01] MEDS: hydrALAZINE HCL 20 MG/ML 1 ML VIAL IVP PRN (20:30)
[2020-05-01 23:48] LABS: Glucose,Whole Blood 145 mg/dL (75-99)
[2020-05-02] MEDS: INSULIN ASPART (NovoLOG) 100 UNIT/ML VIAL SQ SCH ×5 (00:16→23:38)
[2020-05-02] MEDS: HYDROmorphone 1 MG/ML 1 ML SYRINGE IVP PRN ×5 (00:16→09:40)
[2020-05-02] MEDS: metroNIDAZOLE-NS PMX 500 MG in SALINE 1 100ML.BAG IVPB SCH ×4 (00:17→23:38)
[2020-05-02] MEDS: SODIUM CHLORIDE 0.9% 1,000 ML IV SCH ×2 (00:18→15:23)
[2020-05-02 03:56] LABS: Basophils # (A) 0.1 k/uL (0-0.2); Basophils % (A) 0 %; Eosinophils # (A) 0.1 k/uL (0-0.7); Eosinophils % (A) 0 %; HCT 33.8 % (34.0-46.0); HGB 10.3 gm/dL (11.4-16.0); Hypochromasia Moderate; Lymphocytes # (A) 0.8 k/uL (1.0-4.8); Lymphocytes % (A) 3 %; MCHC 30.5 g/dL (31.0-37.0); MCV 101.5 fL (80.0-100.0); Macrocytosis Slight; Mean Platelet Volume 8.4; Monocytes # (A) 0.8 k/uL (0-1.0); Monocytes % (A) 3 %; Neutrophils # (A) 25.8 k/uL (1.3-7.7); Neutrophils % (A) 93 %; Platelet Count 222 k/uL (150-450); RBC 3.33 m/uL (3.80-5.40); RDW 13.4 % (11.5-15.5); WBC 27.8 k/uL (3.8-10.6)
[2020-05-02 04:22] LABS: Calcium 7.9 mg/dL (8.4-10.2); Magnesium 2.1 mg/dL (1.6-2.3); Phosphorus 3.6 mg/dL (2.5-4.5); Potassium 3.5 mmol/L (3.5-5.1)
[2020-05-02] MEDS: POTASSIUM CHLORIDE 20 MEQ in WATER FOR INJECTION 1 100ML.BAG IVPB SCH ×2 (05:19→07:47)
[2020-05-02 05:25] LABS: Glucose,Whole Blood 147 mg/dL (75-99)
--- NOTE | 2020-05-02 08:09 | XR ---
EXAMINATION TYPE: XR chest 1V portable DATE OF EXAM: 05/02/2020 Comparison: 05/01/2020 Clinical History: 85-year-old female COVID Findings: Left PICC tip at the lower SVC. Vertebroplasty changes at the mid thorax. Very low lung volumes. Incr easing bilateral interstitial opacities, patchy peripheral densities, and left basilar densities as c ompared to prior exam. Heart size difficult to assess due to the very low lung volumes. Chronic heale d fracture deformity proximal right humerus. Impression: 1. Marked hypoventilatory changes. 2. Worsening interstitial and patchy airspace infiltrates.
[2020-05-02] MEDS: SODIUM BICARBONATE TAB 650 MG TAB PO SCH ×3 (09:37→22:00)
[2020-05-02] MEDS: METOPROLOL SUCCINATE (ER) 25 MG TAB.ER.24H PO SCH ×2 (09:37→22:00)
[2020-05-02] MEDS: LACTULOSE 20 GM/30 ML CUP PO SCH ×2 (09:37→22:00)
[2020-05-02] MEDS: ESCITALOPRAM 10 MG TAB PO SCH (09:37)
[2020-05-02] MEDS: cycloSPORINE 0.05% OPHTH 0.4 ML DROPERETTE BOTH EYES SCH ×2 (09:39→21:00)
[2020-05-02] MEDS: ENOXAPARIN 40 MG/0.4 ML SYRINGE SQ SCH (09:39)
[2020-05-02] MEDS: PANTOPRAZOLE 40 MG/10 ML VIAL IVP SCH (09:39)
--- NOTE | 2020-05-02 09:55 | P.PN ---
Subjective Progress Note Date: 05/02/20 This is an 85-year-old female patient who underwent repair of parastomal hernia. The patient has history of rectal cancer and she has undergone a low AP resection with colostomy and the patient came into the hospital because of significant abdominal pain as well as constipation over the past 2 days as the patient resides at [facility] on the [place]. She was given Dulcolax suppositories through the stoma and she was also started on lactulose 30 g twice a day and she continued to complain of increased abdominal pain and distention and she was not able to have any bowel movements with the stoma. X-ray showed nonobstructive gas pattern and significant stool buildup and the patient was having increased amount of pain along with nausea and she was unable to drink and eat. At that point, a CAT scan of the abdomen was done that showed large right-sided abdominal wall ventral hernia that contained multiple loops of small bowel measuring about 6 x 12 cm in size and the opening was 5.5 cm and the small bowel measuring up to 3.5 cm in diameter and there was incarceration and some mild dilated loops of small bowel consistent with a partial mechanical obstruction related to the hernia. Note that the patient was taken to the operating room today. Preoperatively, she was having some encephalopathy and she seemed to be gradually improving with conservative management. He was taken to the OR and she underwent exploratory laparotomy, repair of a parastomal hernia, lysis of adhesions, partial colectomy and repair of an incisional hernia and partial omentectomy. The estimated blood loss was only 100 mL. The previously inserted tachycardia colostomy was transected and it was replaced on the other side in the left upper quadrant. Postextubation, the patient some increased difficulty breathing. She was kept on a BiPAP at a pressure of 12/60 to me as of water and FiO2 of 50% and currently she is in the intensive care unit. Chest x-ray and blood gases are still pending. The patient was quite obtunded at a time of arrival and she is gradually recovering her level of consciousness for now. She is currently on IV fluids with normal state rate of 50 mL an hour. She is also taking a combination of Flagyl and meropenem as broad-spectrum antibiotics patient on Lovenox 40 mg subcu for DVT prophylaxis. Blood work from this morning showed a hemoglobin of 11.3 with a white cell count of 8.7. Function is stable with a creatinine of 0.7. The patient's albumin was down to 2.5 with a total protein of 5.5. SGPT and SGOT l within normal limits. On 05/01/2020 patient seen in follow-up in the intensive care unit, today is postoperative day #1, status post exploratory laparotomy, parastomal hernia repair, lysis of adhesions, partial colectomy, partial omentectomy, and repair of incisional hernia. This morning patient is awake, however she is encephalopathic, she is slow to respond, but does not appear to be in any acute distress other than some postoperative tenderness in her abdomen with light palpation, she is on 4 L of supplemental oxygen her pulse ox is 100%, she is breathing comfortably, she has been afebrile overnight, hemodynamically she is stable, she is on 0.9 normal saline at a rate of 100 ML per hour, no vasopressor support. Today's chest x-ray has been reviewed showing low lung volumes and mild cardiomegaly with small bilateral pleural effusions and multifocal right greater than left acute infiltrates and/or atelectasis. She is on Flagyl for antibiotic coverage, she's been afebrile overnight. Her incisions clean dry and intact, covered with surgical dressing, left lower quadrant colostomy is in place, with no gas or stool output in its. Patient has been nothing by mouth. Patient having 100% on 4 L, however she is frequently sleepy, she did wear BiPAP for several hours last night. Urine culture is positive for Providentia stuartii and Proteus mirabilis. There are hypoactive bowel sounds present. Lung sounds are positive for diminished breath sounds with scattered rales. Skin clean dry and warm, palpable distal pulses On 05/02/2020 patient seen in follow-up in the intensive care unit, she is lethargic, confused, but arousable, she is answering simple questions, mostly moans when her abdomen is touched, she has diffuse tenderness in her abdomen, particularly in the right upper quadrant, and around the site of the previous colostomy. The abdomen is nonrigid, it is relatively soft however patient is very tender with any palpation, her left lower quadrant colostomy has not produced any gas or stool yet, there are hypoactive bowel sounds in the upper quadrants. No nausea or vomiting, she had been BiPAP on and off through the day yesterday, she is currently on oxygen her pulse ox the 100%, hemodynamically she stable, not on any vasopressor support, she is on TPN at 30 ML per hour and maintenance IV fluids point and was sitting at a rate of 100 ML per hour, no other drips, she's been afebrile, she is sinus mechanism, slightly tachycardic at times, with a rate of 98-100 bpm, blood pressure is been stable, patient is generally swallowing, she is a positive fluid balance, she is +1095 mL over last 24 hours, and +2.2 L the day before. Has been nothing by mouth. Yesterday patient received a couple doses of IV Lasix, low urine output, producing 20-40 mL of urine output per hour. Remains on Flagyl for antibiotic coverage. Lungs reveal diminished breath sounds at the bases, today's chest x-ray shows hypoventilatory changes, interstitial and patchy airspace infiltrates. Objective - Vital Signs Vital signs: Vital Signs Temp 98.8 F 05/02/20 08:00 Pulse 114 H 05/02/20 08:00 Resp 22 05/02/20 08:00 BP 141/59 05/02/20 08:00 Pulse Ox 100 05/02/20 08:00 Intake & Output 05/01/20 05/02/20 05/02/20 18:59 06:59 18:59 Intake Total 1230 1560 130 Output Total 1140 555 10 Balance 90 1005 120 Weight 69.8 kg 71.3 kg Intake: IV 1230 1560 130 Magnesium Sulfate-D5w Pmx 400 1 gm In Dextrose/Water 1 100ml.bag @ 100 mls/hr IVPB Q1H [facility] Rx#: [id number] Mvi, Adult No.4 with Vit 30 360 30 K 10 ml Trace (Conc-1Ml/ Dose) 1 ml In Amino Acid 5%-D20w+Lytes*E* 1,000 ml @ 30 mls/hr IV .Q24H [facility] Rx#:[id number] Sodium Chloride 0.9% 1, 700 1200 100 000 ml @ 100 mls/hr IV . Q10H [facility] Rx#:[id number] metroNIDAZOLE-NS PMX 500 100 mg In Saline 1 100ml.bag @ 100 mls/hr IVPB Q8HR [facility] Rx#:[id number] Output: Urine 1140 555 10 Other: Voiding Method Indwelling Catheter Indwelling Catheter - Exam GENERAL EXAM: Somnolent, but arousable, 85-year-old white female, on 4 L of oxygen with a pulse ox of 100% comfortable in no apparent distress. HEAD: Normocephalic/atraumatic. EYES: Normal reaction of pupils, equal size. Conjunctiva pink, sclera white. NOSE: Clear with pink turbinates. THROAT: No erythema or exudates. NECK: No masses, no JVD, no thyroid enlargement, no adenopathy. CHEST: No chest wall deformity. Symmetrical expansion. LUNGS: Equal air entry with crackles, rhonchi CVS: Regular rate and rhythm, normal S1 and S2, no gallops, no murmurs, no rubs ABDOMEN: Soft, nonrigid, tender to light palpation mid abdominal incision is clean dry and intact, left lower quadrant colostomy with no gas or stool. No hepatosplenomegaly, normal bowel sounds, no guarding or rigidity. EXTREMITIES: No clubbing, diffuse generalized swelling, no cyanosis, 2+ pulses and upper and lower extremities. MUSCULOSKELETAL: Muscle strength and tone normal. SPINE: No scoliosis or deformity SKIN: No rashes CENTRAL NERVOUS SYSTEM: Sleepy, but arousable, confused. No focal deficits, tone is normal in all 4 extremities. - Labs CBC & Chem 7: 05/02/20 03:16 05/02/20 03:16 Labs: Abnormal Lab Results - Last 24 Hours (Table) 05/01/20 05/01/20 05/01/20 Range/Units 03:31 11:40 17:39 WBC (3.8-10.6) k/uL RBC (3.80-5.40) m/uL Hgb (11.4-16.0) gm/dL Hct (34.0-46.0) % MCV (80.0-100.0) fL MCHC (31.0-37.0) g/dL Neutrophils # (1.3-7.7) k/uL Lymphocytes # (1.0-4.8) k/uL Glucose (74-99) mg/dL POC Glucose (mg/dL) 111 H 145 H (75-99) mg/dL Calcium (8.4-10.2) mg/dL Triglycerides 177 H (<150) mg/dL 05/01/20 05/02/20 05/02/20 Range/Units 23:46 03:16 03:16 WBC 27.8 H (3.8-10.6) k/uL RBC 3.33 L (3.80-5.40) m/uL Hgb 10.3 L (11.4-16.0) gm/dL Hct 33.8 L (34.0-46.0) % MCV 101.5 H (80.0-100.0) fL MCHC 30.5 L (31.0-37.0) g/dL Neutrophils # 25.8 H (1.3-7.7) k/uL Lymphocytes # 0.8 L (1.0-4.8) k/uL Glucose 143 H (74-99) mg/dL POC Glucose (mg/dL) 145 H (75-99) mg/dL Calcium 7.9 L (8.4-10.2) mg/dL Triglycerides (<150) mg/dL 05/02/20 Range/Units 05:23 WBC (3.8-10.6) k/uL RBC (3.80-5.40) m/uL Hgb (11.4-16.0) gm/dL Hct (34.0-46.0) % MCV (80.0-100.0) fL MCHC (31.0-37.0) g/dL Neutrophils # (1.3-7.7) k/uL Lymphocytes # (1.0-4.8) k/uL Glucose (74-99) mg/dL POC Glucose (mg/dL) 147 H (75-99) mg/dL Calcium (8.4-10.2) mg/dL Triglycerides (<150) mg/dL Assessment and Plan Plan: Assessment: 1 exploratory laparotomy, repair of a parastomal hernia and lysis of adhesions with partial colectomy and repair of an incisional hernia and partial omentectomy. The patient is postop day #2. Surgery was done for incarcerated bowel within the large parastomal hernia. The patient mechanical obstruction and the patient a bowel obstruction. 2 acute hypoxic respiratory failure, post abdominal surgery and the patient is currently on a BiPAP at a pressure of 12/6 with an FiO2 of 50%. Chest x-ray shows low lung volumes, bilateral atelectasis/infiltrates, and small pleural effusion. Patient has been wearing BiPAP support on and off, and currently on 4 L of oxygen 3 Altered mentation, consider metabolic encephalopathy and underlying dementia. In addition, the patient is still recovering from anesthetics and the patient arrived from the operating room. 4 acute kidney injury, improving and the patient is receiving fluid and the creatinine is normalized 5 metabolic encephalopathy secondary to above with altered mentation 6 chronic stage II kidney disease, renal function is normalized with fluids 7 coronary artery disease 8 history of diastolic heart failure with an ejection fraction of 50% 8 hypertension 9 Sjogren syndrome 10 chronic anemia 11 chronic pain syndrome 12 overactive bladder 13 vascular dementia 14 history of rectal cancer post low AP resection and the patient had a colos tyra, details discussed above 15 valvular heart disease with mild to moderate MR and TR and mild to moderate pulmonary hypertension 16 atrial fibrillation currently on a Cardizem drip at 10 mg an hour, rate is controlled for now, Cardizem drip has been discontinued and patient is in sinus right now Plan: Patient is having increased tenderness in her abdomen, will get a flat plate of the abdomen, obtain lactic acid, pro-calcitonin level, cutback IV fluids to KVO, continue parenteral nutrition, maintain aspiration precautions, may use BiPAP support as needed and at bedtime, continue current antibiotics, continue close hemodynamic monitoring, GI and DVT prophylaxis. We'll continue to follow I performed a history & physical examination of the patient and discussed their management with my nurse practitioner, Jennifer Ernandez. I reviewed the nurse practitioner's note and agree with the documented findings and plan of care. Lung sounds are positive for diminished breath sounds. The findings and the impression was discussed with the patient. I attest to the documentation by the nurse practitioner. Time with Patient: Greater than 30
[2020-05-02] MEDS ORDERED: HYDROmorphone 2 MG/ML 1 ML SYRINGE IVP PRN (10:05)
--- NOTE | 2020-05-02 10:23 | XR ---
Abdomen HISTORY: Pain Frontal view of the abdomen submitted and correlated prior exam 04/22/2020 Postop changes are noted to the right femur, there is surgical hanh over the right lower quadrant, in the midline, there is a Baez catheter in place. Vertebroplasty changes are present within the samara mbar spine. Multiple metallic coils present over the left lower quadrant. There are vascular calcific ations within the pelvis. No evident pneumoperitoneum or bowel obstruction. Bone mineralization is re duced. IMPRESSION: Postop changes. Nonobstructive bowel gas pattern.
[2020-05-02] MEDS: MORPHINE SULFATE 4 MG/ML SYRINGE IVP PRN ×4 (10:26→20:24)
[2020-05-02 11:42] LABS: Glucose,Whole Blood 146 mg/dL (75-99)
--- NOTE | 2020-05-02 11:58 | P.PN ---
Subjective Progress Note Date: 05/02/20 CHIEF COMPLAINT: incarcerated parastomal hernia HISTORY OF PRESENT ILLNESS: Patient seen and examined with Dr. Falcon. This is a 85-year-old female with a previous history of diverticulitis and colostomy. Patient has developed a large parastomal hernia with incarcerated small bowel. She has significant abdominal pain and problems with intermittent obstruction. Patient is currently in the ICU. She is status post exploratory laparotomy, repair of parastomal hernia, lysis of adhesions, partial colectomy, repair of incisional hernia and partial omentectomy. Patient is currently on the BiPAP. Per nursing patient is still having uncontrolled pain. Dilaudid dosing was further adjusted this morning by Dr. Falcon. Patient still has no output per ostomy. Afebrile. WBC 27.8 hemoglobin 10.3 creatinine 0.83 Abdominal x-ray postop changes. Nonobstructive bowel gas pattern. PHYSICAL EXAM: VITAL SIGNS: Reviewed. GENERAL: Well-developed in no acute distress. HEENT: No sclera icterus. Extraocular movements grossly intact. Moist buccal mucosa. Head is atraumatic, normocephalic. ABDOMEN: Soft. Nondistended. Colostomy left lower quadrant. NEUROLOGIC: Patient is more awake but confused ASSESSMENT: 1. Incarcerated parastomal hernia, incisional hernia and adhesions status post exploratory laparotomy, repair of parastomal hernia, lysis of adhesions, partial colectomy, repair of incisional hernia and partial omentectomy PLAN: -Continue ICU management -Continue supportive care -Adjust IV Dilaudid dose for pain control -GI prophylaxis Protonix and DVT prophylaxis Lovenox Physician Customs Agent note has been reviewed by physician. Signing provider agrees with the documented findings, assessment, and plan of care. Objective - Vital Signs Vital signs: Vital Signs Temp 98.1 F 05/02/20 09:00 Pulse 108 H 05/02/20 10:00 Resp 29 H 05/02/20 10:00 BP 119/64 05/02/20 10:00 Pulse Ox 100 05/02/20 08:00 Intake & Output 05/01/20 05/02/20 05/02/20 18:59 06:59 18:59 Intake Total 1230 1560 420 Output Total 1140 555 35 Balance 90 1005 385 Weight 69.8 kg 71.3 kg Intake: IV 1230 1560 420 Magnesium Sulfate-D5w Pmx 400 1 gm In Dextrose/Water 1 100ml.bag @ 100 mls/hr IVPB Q1H [facility] Rx#: [id number] Mvi, Adult No.4 with Vit 30 360 120 K 10 ml Trace (Conc-1Ml/ Dose) 1 ml In Amino Acid 5%-D20w+Lytes*E* 1,000 ml @ 30 mls/hr IV .Q24H [facility] Rx#:[id number] Potassium Chloride 20 meq 100 In Water For Injection 1 100ml.bag @ 50 mls/hr IVPB Q2H [facility] Rx#: [id number] Sodium Chloride 0.9% 1, 700 1200 100 000 ml @ 20 mls/hr IV . Q24H [facility] Rx#:[id number] metroNIDAZOLE-NS PMX 500 100 100 mg In Saline 1 100ml.bag @ 100 mls/hr IVPB Q8HR [facility] Rx#:[id number] Output: Urine 1140 555 35 Other: Voiding Method Indwelling Catheter Indwelling Catheter Indwelling Catheter - Labs CBC & Chem 7: 05/02/20 03:16 05/02/20 03:16 Labs: Abnormal Lab Results - Last 24 Hours (Table) 05/01/20 05/01/20 05/01/20 Range/Units 03:31 17:39 23:46 WBC (3.8-10.6) k/uL RBC (3.80-5.40) m/uL Hgb (11.4-16.0) gm/dL Hct (34.0-46.0) % MCV (80.0-100.0) fL MCHC (31.0-37.0) g/dL Neutrophils # (1.3-7.7) k/uL Lymphocytes # (1.0-4.8) k/uL Glucose (74-99) mg/dL POC Glucose (mg/dL) 145 H 145 H (75-99) mg/dL Calcium (8.4-10.2) mg/dL Triglycerides 177 H (<150) mg/dL 05/02/20 05/02/20 05/02/20 Range/Units 03:16 03:16 05:23 WBC 27.8 H (3.8-10.6) k/uL RBC 3.33 L (3.80-5.40) m/uL Hgb 10.3 L (11.4-16.0) gm/dL Hct 33.8 L (34.0-46.0) % MCV 101.5 H (80.0-100.0) fL MCHC 30.5 L (31.0-37.0) g/dL Neutrophils # 25.8 H (1.3-7.7) k/uL Lymphocytes # 0.8 L (1.0-4.8) k/uL Glucose 143 H (74-99) mg/dL POC Glucose (mg/dL) 147 H (75-99) mg/dL Calcium 7.9 L (8.4-10.2) mg/dL Triglycerides (<150) mg/dL 05/02/20 Range/Units 11:41 WBC (3.8-10.6) k/uL RBC (3.80-5.40) m/uL Hgb (11.4-16.0) gm/dL Hct (34.0-46.0) % MCV (80.0-100.0) fL MCHC (31.0-37.0) g/dL Neutrophils # (1.3-7.7) k/uL Lymphocytes # (1.0-4.8) k/uL Glucose (74-99) mg/dL POC Glucose (mg/dL) 146 H (75-99) mg/dL Calcium (8.4-10.2) mg/dL Triglycerides (<150) mg/dL
[2020-05-02] MEDS: MEROPENEM 1 GM in SODIUM CHLORIDE 0.9% 100 ML IVPB SCH ×2 (15:13→20:59)
[2020-05-02] MEDS: FUROSEMIDE 10 MG/ML 4 ML VIAL IV SCH (15:13)
[2020-05-02] MEDS: oxyCODONE-APAP 7.5-325MG 1 EACH TAB PO PRN ×2 (15:13→23:38)
--- NOTE | 2020-05-02 15:31 | P.PN ---
Subjective Progress Note Date: 05/02/20 This is an 85-year-old female patient of Dr. Garcia and Dr. Pulido with past medical history of asthma, CAD with ischemic cardiomyopathy, previous history of lung cancer post resection who is known to have severe lower back pain, history of Klebsiella pneumoniae ESBL urinary tract infection, memory impairment, rectal cancer post low anterior resection with colostomy placement and she has had her stoma moved from one side to the other times to with significant peristomal hernia, patient developed to have a significant abdominal pain as well as constipation over the last few days at [facility] at that time she was given a Dulcolax suppository through the stoma and she was started on lactulose 30 g orally twice every day patient has been complaining of increased abdominal pain and distention not able to have a good BM through the stoma, an x-ray was done over there and that showed nonobstructive gas pattern with significant stool buildup, patient today was having increased amount of pain associated with nausea and not able to eat or drink she was dehydrated as well has not been eating much over the last few days, she was directed to go to the emergency department at [facility] where she was found to have an acute kidney injury as well a hyperkalemia, patient underwent CT abdomen and pelvis without contrast that showed a large right side abdominal wall ventral hernia that contains multiple loops of the small bowel hernia measures about 612 cm the opening is 5.5 cm the small bowel measures up to 3.5 cm in diameter there was incarcerated in and some mildly dilated loops of small bowel consistent with partial mechanical obstruction related to the hernia, patient was started on IV fluid as well as IV antibiotic, and surgical consultation was obtained from and had a long conversation with the emergency room physician on the complexity of the case and if the patient is not a candidate for any surgical intervention at [facility] she will need to be transferred to [facility], this was discussed with her over the phone. 04/21: Patient sitting up in bed in no apparent distress, she appears to be a bit short of breath, her IV fluids were decreased to 75 mL an hour, we'll monitor her input and output and daily weight, she was seen in consultation by cardiology in preparation for surgical intervention will be planned for tomorrow morning, I spoke general surgery and they feel that the patient can the served here for a better quality of life, and there is no need for the patient be transferred to a tertiary care center, cardiology consultation was obtained, echocardiogram will be done, EKG was done also continue beta gume in the form of metoprolol 25 mg orally twice every day, monitor the patient very closely at this time hold off ANGELICA inhibitor due to her kidney function, nephrology seen the patient as well and she seems to be doing better. 04/22: Patient is laying down in bed in minimal respiratory distress, she did receive 40 mg Lasix earlier today because of expiratory wheezes and increased shortness of breath, portable chest x-ray and abdominal x-ray was obtained, we will hold off any surgery at this time until obtaining the result of the x-ray patient does have a good stool output and her stoma at this time, echo care gram still pending at the time of dictation, I believe the patient needs to be monitored for another 24 hours before any surgical intervention. 04/23: Patient known to have mental status changes. CAT scan of the brain ordered which revealed only chronic age-related changes with chronic small vessel ischemia. CTA of the chest done yesterday revealed no pulmonary embolism. T here is new bilateral pleural effusions and pulmonary infiltrates and atelectasis. Heart appeared increased in size with probable congestive heart failure. Large pulmonary arteries consistent with pulmonary hypertension unchanged. Multiple old thoracic compression fractures. New compression frac ture of T4. Patient is afebrile, heart rate 114, blood pressure 182/87, pulse ox 92% on room air. CBC 14.7, hemoglobin 12. Sodium 143, potassium 3.8, chloride 110, CO2 16, BUN 21 and creatinine 0.86. Urine culture is positive for Providencia stuartii. Rocephin will be discontinued and patient started on meropenem 1 g IV piggyback every 8 hours. Echocardiogram reveals EF of 55-60% with mild concentric left ventricular hypertrophy, mild to moderate mitral regurgitation, [id number] tricuspid regurgitation, mild to moderate pulmonary hypertension. 2: Patient continues to have increased confusion and noted to have difficulty swallowing. Speech therapy has evaluated with recommendations. Consult has also been added for neurology for dysphagia. Medications reviewed and patient r esumed on Zyprexa and Lexapro. Patient is afebrile, heart rate 89, blood pressure 160/70, pulse ox 97% on 2 L nasal cannula. There is slight and there is a slight rise in her leukocytosis of 15.7. Hemoglobin is 11. Sodium is 148 potassium 3.2, chloride 113, CO2 20, BUN 25 and creatinine 1.12. IV fluids transition to dextrose 5% at 60 mL/h. Cardiology ordered Cardizem drip for episode of atrial fibrillation. She is continued on IV antibiotics with meropenem and Flagyl. Patient's will be contacted via phone and updated. Patient is not stable at this time for surgical intervention. 2: Patient has been seen by neurology for metabolic encephalopathy. X-ray of the chest reveals improving left lower lobe infiltrate, scattered infiltrates still present bilaterally. Prominence of the heart and pulmonary vasculature. Correlate for heart failure, atypical pulmonary edema could be considered, atypical pneumonia is within differential. Sodium 147, potassium 3.5, chloride 113, BUN 26 and creatinine 1.05. Ammonia level less than 9. TSH 0.490. Nephrology has continued D5W. Patient is unresponsive to questions, not verbalizing, staring blankly. is at bedside. Discussed CODE STATUS with the patient's and he is unable to make a decision at this time oth er than to keep her full code. MRI of the brain ordered to rule out brainstem infarct. General surgery continues to follow for the large parastomal hernia with incarceration, to be done if patient is medically stable. 2: MRI of the brain reveals age-related atrophy with confluence chronic appea ring. Ventricular white matter ischemic type changes. EEG is abnormal with moderate to severe encephalopathy. Patient apparently said yes and no to the nurse today. There's been no seizure activity noted. Patient is eating less than 25% of her meals. IV fluids been increased to 100 mL per hour per nephrology. WBC 20.9, hemoglobin 11.2. Sodium 147, potassium 3.7, chloride 115, CO2 25, BUN 23 and creatinine 0.75. Blood sugar 123. 25: Patient's mental status is improving, she is more awake and alert today, able to answer questions. Speech therapy has evaluated and plan to start trials of diet. Ostomy is functioning. Sodium level is better today at 146. Potassium is 3.7, chloride 114, CO2 25, BUN 23 and creatinine 0.81. She is still on Cardizem drip for atrial fibrillation. She is been afebrile, heart rate in the 80s, blood pressure 130/61, pulse ox 90% on 1 L nasal cannula. Patient continues on D5W at 100 mL per hour. 04/30: Patient is awake and alert. Mental status is much improved. She is scheduled for surgery today with Dr. Falcon. Patient's is at bedside. She has been afebrile, heart rate 75, blood pressure 144/76, pulse ox 90% on room air. WBC 8.7, hemoglobin 11.3. Sodium 136 otherwise electrolytes renal function are normal. Liver function tests are normal. Air in the ostomy bag. No stool at this point. Baez catheter draining clear tobin urine. 05/01: Patient remains in the intensive care unit on BiPAP. Patient is able states she feels better from yesterday. She is status post exploratory laparotomy, parastomal hernia repair, lysis of adhesions, partial colectomy, partial omentectomy, and repair of incisional hernia, postop day #1 patient appears to be comfortable at rest. Pulse ox is 100% on BiPAP. She has been afebrile, heart rate 89, blood pressure 125/72. W BC 17.8, hemoglobin 12. Sodium 136, potassium 4.3, chloride 107, CO2 21, BUN 14 and creatinine 0.78. Liver function tests normal. Patient is known to have generalized edema. Patient was given 1 dose of IV Lasix this morning and we will plan to repeat that this afternoon. Patient is continued on IV Flagyl. 05/02: Patient remains in the intensive care unit. Currently on BiPAP with 50% FiO2 with a pulse ox of 100%. She's been afebrile, heart rate 87, blood pres sure 122/52. Abdominal x-ray shows nonobstructive gas pattern. Chest x-ray this morning reveals marked hypo-ventilation changes. Worsening interstitial changes and patchy airspace infiltrates. WBC 27.8, hemoglobin 10.3, platelet count 222. Electrolytes and renal function are normal. Blood sugars are running in the 140s. Patient is complaining of significant pain. Dilaudid and morphine dosing has been adjusted. Patient is known to have difficulty with both medications with mental status changes. Blood no the patient does well with Percocet and will order 7.5 one every 6 hours as needed. Stoma is slightly dusky in color. The old ostomy site has erythema and warmth. Patient has no output from ostomy. Patient was started on TPN today and fluids discontinued. Due to generalized edema and anasarca, IV Lasix 40 mg daily ordered. Patient had good urine output yesterday after IV Lasix. Output is currently 10-15 mL per hour. Objective - Vital Signs Vital signs: Vital Signs Temp 98.6 F 05/02/20 12:00 Pulse 96 05/02/20 13:00 Resp 20 05/02/20 13:00 BP 125/56 05/02/20 13:00 Pulse Ox 100 05/02/20 13:00 Intake & Output 05/01/20 05/02/20 05/02/20 18:59 06:59 18:59 Intake Total 1230 1560 570 Output Total 1140 555 80 Balance 90 1005 490 Weight 69.8 kg 71.3 kg Intake: IV 1230 1560 570 Magnesium Sulfate-D5w Pmx 400 1 gm In Dextrose/Water 1 100ml.bag @ 100 mls/hr IVPB Q1H [facility] Rx#: [id number] Mvi, Adult No.4 with Vit 30 360 210 K 10 ml Trace (Conc-1Ml/ Dose) 1 ml In Amino Acid 5%-D20w+Lytes*E* 1,000 ml @ 30 mls/hr IV .Q24H [facility] Rx#:[id number] Potassium Chloride 20 meq 100 In Water For Injection 1 100ml.bag @ 50 mls/hr IVPB Q2H [facility] Rx#: [id number] Sodium Chloride 0.9% 1, 700 1200 160 000 ml @ 20 mls/hr IV . Q24H [facility] Rx#:[id number] metroNIDAZOLE-NS PMX 500 100 100 mg In Saline 1 100ml.bag @ 100 mls/hr IVPB Q8HR [facility] Rx#:[id number] Output: Urine 1140 555 80 Other: Voiding Method Indwelling Catheter Indwelling Catheter Indwelling Catheter - Exam Review of Systems Constitutional: Reports anorexia, Reports fatigue, denies lethargy, Reports malaise, Reports weakness, Reports weight loss Eyes: denies blurred vision, denies bulging eye, denies decreased vision Ears: bilateral: decreased hearing Ears, nose, mouth and throat: Denies dysphagia, Denies neck lump, Denies sore throat Cardiovascular: Denies chest pain, Denies decreased exercise tolerance, Denies dyspnea on exertion, Denies lightheadedness, Denies rapid heart beat, Denies shortness of breath, Denies syncope Respiratory: Denies congestion, Denies cough with sputum, Denies home oxygen, Denies sleep apnea, Denies snoring, Denies wheezing Gastrointestinal: Reports abdominal pain worsening, Reports bloating, Reports constipation, Reports early satiety, Reports loss of appetite, Reports nausea, Reports vomiting Genitourinary: Denies dysuria, Denies nocturia Menstruation: Reports postmenopausal Musculoskeletal: Reports atrophy, Reports frequent falls, Reports gait dysfunction, Reports loss of height, Reports low back pain, Reports muscle weakness Musculoskeletal: absent: ankle pain, ankle stiffness, ankle swelling, elbow pain, elbow stiffness, elbow swelling, foot pain, foot stiffness, foot swelling, hand pain, hand stiffness, hand swelling, hip pain, hip stiffness, hip swelling, knee pain, knee stiffness, knee swelling, shoulder pain, shoulder stiffness, shoulder swelling, wrist pain, wrist stiffness, wrist swelling Integumentary: Denies pruritus, Denies rash Neurological: Reports balance difficulties, Reports gait dysfunction, Reports weakness, improved mental status Psychiatric: Denies anxiety, Denies depression Physical examination HEENT: Head is atraumatic, normocephalic, pupils were equal round reactive to light and accommodation, extraocular muscle movement were intact, sclera nonicteric conjunctiva are pale, mucous membranes of mouth are dry. Neck: Supple, no JVD, decreased carotid upstroke bilaterally. Chest: There is significant kyphosis present, decreased breath sounds at the bases, few rhonchi, no expiratory wheezes, no chest wall tenderness, no intercostal retractions. Heart: First heart sound is depressed, second heart sounds normal, there is systolic ejection murmur 2/6 located in the left border. Abdomen: Soft and moderate tenderness generalized, stoma to the left of midline is slightly dusky. Old stoma site has erythema and warmth. Stoma bag is empty. Extremities: There is 1+ edema, no calf tenderness, dorsalis pedis +1 bilaterally. Neurologic examination: Patient is awake and alert, able to answer questions and follow simple commands. Patient appears to be quite uncomfortable. - Labs CBC & Chem 7: 05/02/20 03:16 05/02/20 03:16 Labs: Abnormal Lab Results - Last 24 Hours (Table) 05/01/20 05/01/20 05/01/20 Range/Units 03:31 17:39 23:46 WBC (3.8-10.6) k/uL RBC (3.80-5.40) m/uL Hgb (11.4-16.0) gm/dL Hct (34.0-46.0) % MCV (80.0-100.0) fL MCHC (31.0-37.0) g/dL Neutrophils # (1.3-7.7) k/uL Lymphocytes # (1.0-4.8) k/uL Glucose (74-99) mg/dL POC Glucose (mg/dL) 145 H 145 H (75-99) mg/dL Calcium (8.4-10.2) mg/dL Triglycerides 177 H (<150) mg/dL 05/02/20 05/02/20 05/02/20 Range/Units 03:16 03:16 05:23 WBC 27.8 H (3.8-10.6) k/uL RBC 3.33 L (3.80-5.40) m/uL Hgb 10.3 L (11.4-16.0) gm/dL Hct 33.8 L (34.0-46.0) % MCV 101.5 H (80.0-100.0) fL MCHC 30.5 L (31.0-37.0) g/dL Neutrophils # 25.8 H (1.3-7.7) k/uL Lymphocytes # 0.8 L (1.0-4.8) k/uL Glucose 143 H (74-99) mg/dL POC Glucose (mg/dL) 147 H (75-99) mg/dL Calcium 7.9 L (8.4-10.2) mg/dL Triglycerides (<150) mg/dL 05/02/20 Range/Units 11:41 WBC (3.8-10.6) k/uL RBC (3.80-5.40) m/uL Hgb (11.4-16.0) gm/dL Hct (34.0-46.0) % MCV (80.0-100.0) fL MCHC (31.0-37.0) g/dL Neutrophils # (1.3-7.7) k/uL Lymphocytes # (1.0-4.8) k/uL Glucose (74-99) mg/dL POC Glucose (mg/dL) 146 H (75-99) mg/dL Calcium (8.4-10.2) mg/dL Triglycerides (<150) mg/dL Assessment and Plan Plan: 1. Large right lateral abdominal wall hernia with incarceration status post repair of parastomal hernia, lysis of adhesions, partial colectomy, repair of in cisional hernia, partial omentectomy. Continue to monitor input and output and daily weight, pain control, this is a high-risk patient, resume meropenem 1 g IV piggyback every 8 hours, continue metronidazole 500 mg IV piggyback every 8 hours, continue current pain management with Percocet if possible, monitor the patient respiratory status. 2. Acute kidney injury due to poor oral intake of fluid and acute tubular necrosis. Continue IV fluid, monitor input and output and daily weight, check the patient CMP tomorrow morning. 3. Hyperkalemia likely related to acute kidney injury. Continue to monitor 4. Metabolic encephalopathy secondary to acute kidney injury as well as incarcerated large ventral hernia. Continue continue IV antibiotic, monitor the patient very closely. Much better 5. Chronic kidney failure CKD stage II currently with acute kidney injury continue IV fluid resuscitation repeat CMP tomorrow morning. 6. CAD and non-ischemic cardiomyopathy and chronic diastolic heart failure with ejection fraction of 50%. We will maintain the patient on metoprolol 7. Hypertension and hypertensive cardiovascular disease. Continue metoprolol, hold lisinopril for now. 8. Sjogren syndrome. We'll hold off Salagen 9. Anemia of chronic medical illnesses. Continue to monitor the patient's CBC 10. Chronic pain syndrome. Continue Percocet if patient is able to take oral pain medicine.. 11. Overactive bladder. Discontinue Detrol. 12. 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 Appears to be at baseline. 13. History of rectal cancer post-low anterior resection with colostomy placement . 14. DVT prophylaxis. Start the patient on Lovenox 40 mg subcutaneously every 24 hours. 15. GI prophylaxis. Protonix 40 mg IV push every 24 hours. 16. Recurrent depression. Continue Zyprexa and Lexapro. 17. Acute urinary tract infection. Continue meropenem 1 g IV piggyback every 8 hours.. 18. Valvular heart disease with [id number] mitral regurgitation, [id number] tricuspid regurgitation and mild to moderate pulmonary hypertension. 19. Hypernatremia. Monitor 20. Sinus tachycardia and atrial fibrillation, paroxysmal. Continue metoprolol 21. Metabolic encephalopathy secondary to acute kidney injury, hyponatremia, incarcerated ventral hernia, Covid 19, UTI. MRI of the brain negative for acute findings. 22. Severe protein calorie malnutrition. Patient has been started on TPN. CODE STATUS: Full code Guarded prognosis. Discharge Plan: Return to [facility] Impression and plan of care have been directed as dictated by the signing physician. Caitlin Francis nurse practitioner acting as scribe for signing physician.
[2020-05-02 16:55] LABS: Glucose,Whole Blood 152 mg/dL (75-99)
[2020-05-02 18:26] LABS: Hemoglobin A1C 5.4 % (4.0-6.0)
[2020-05-02] MEDS: ALBUTEROL HFA INHALER INHALATION PRN (20:51)
[2020-05-02] MEDS: AMMONIUM LACTATE 12% LOTION 225 GM BTL TOPICAL SCH (21:00)
[2020-05-02] MEDS: MVI, ADULT NO.4 WITH VIT K 10 ML, TRACE (CONC-1ML/DOSE) 1 ML in AMINO ACID 5%-D20W+LYTE... IV SCH ×3 (21:25)
[2020-05-02] MEDS: FAT EMULSION 20% 250 ML in EMPTY BAG 1 BAG IV SCH (21:26)
[2020-05-02] MEDS: OLANZapine 7.5 MG TAB PO SCH (22:00)
[2020-05-02 23:35] LABS: Glucose,Whole Blood 143 mg/dL (75-99)
[2020-05-03] MEDS: MORPHINE SULFATE 4 MG/ML SYRINGE IVP PRN ×5 (00:31→20:47)
[2020-05-03 04:55] LABS: Basophils % (A) 0 %; Eosinophils # (A) 0.2 k/uL (0-0.7); Eosinophils % (A) 1 %; HCT 34.1 % (34.0-46.0); HGB 10.1 gm/dL (11.4-16.0); Hypochromasia Marked; Lymphocytes # (A) 0.9 k/uL (1.0-4.8); Lymphocytes % (A) 4 %; MCH 30.3 pg (25.0-35.0); MCHC 29.7 g/dL (31.0-37.0); MCV 101.8 fL (80.0-100.0); Macrocytosis Slight; Monocytes # (A) 0.8 k/uL (0-1.0); Monocytes % (A) 4 %; Neutrophils # (A) 18.2 k/uL (1.3-7.7); Neutrophils % (A) 90 %; Platelet Count 212 k/uL (150-450); RBC 3.35 m/uL (3.80-5.40); RDW 13.1 % (11.5-15.5); WBC 20.2 k/uL (3.8-10.6)
[2020-05-03 05:12] LABS: Calcium 8.1 mg/dL (8.4-10.2); Magnesium 2.1 mg/dL (1.6-2.3); Phosphorus 3.6 mg/dL (2.5-4.5)
[2020-05-03 06:03] LABS: Glucose,Whole Blood 161 mg/dL (75-99)
[2020-05-03] MEDS: oxyCODONE-APAP 7.5-325MG 1 EACH TAB PO PRN ×4 (06:11→23:35)
[2020-05-03] MEDS: INSULIN ASPART (NovoLOG) 100 UNIT/ML VIAL SQ SCH ×4 (06:11→23:35)
--- NOTE | 2020-05-03 07:35 | XR ---
EXAMINATION TYPE: XR chest 1V portable DATE OF EXAM: 05/03/2020 COMPARISON: 05/02/2020 INDICATION: Covid TECHNIQUE: Single frontal view of the chest is obtained. FINDINGS: The heart size is normal. The pulmonary vasculature is normal. Right lower lobe infiltrate is present. Some residual left lower lobe infiltrate which is resolving. PICC line enters on the left superior vena cava region. Vertebroplasty changes are evident. Patient i s rotated to the right. IMPRESSION: 1. There may be some improvement on the bibasilar infiltrates.
[2020-05-03] MEDS: ESCITALOPRAM 10 MG TAB PO SCH (07:57)
[2020-05-03] MEDS: SODIUM BICARBONATE TAB 650 MG TAB PO SCH ×3 (07:57→22:46)
[2020-05-03] MEDS: cycloSPORINE 0.05% OPHTH 0.4 ML DROPERETTE BOTH EYES SCH ×2 (08:58→20:47)
[2020-05-03] MEDS: PANTOPRAZOLE 40 MG/10 ML VIAL IVP SCH (09:02)
[2020-05-03] MEDS: MEROPENEM 1 GM in SODIUM CHLORIDE 0.9% 100 ML IVPB SCH ×2 (09:02→20:47)
[2020-05-03] MEDS: metroNIDAZOLE-NS PMX 500 MG in SALINE 1 100ML.BAG IVPB SCH ×3 (09:02→23:35)
[2020-05-03] MEDS: ENOXAPARIN 40 MG/0.4 ML SYRINGE SQ SCH (09:02)
[2020-05-03] MEDS: FUROSEMIDE 10 MG/ML 4 ML VIAL IV SCH (09:02)
[2020-05-03] MEDS: ALBUTEROL HFA INHALER INHALATION PRN ×2 (09:08→19:57)
[2020-05-03] MEDS: LACTULOSE 20 GM/30 ML CUP PO SCH (09:18)
[2020-05-03] MEDS: METOPROLOL SUCCINATE (ER) 25 MG TAB.ER.24H PO SCH ×2 (09:18→20:48)
--- NOTE | 2020-05-03 10:18 | P.PN ---
Subjective Progress Note Date: 05/03/20 This is an 85-year-old female patient who underwent repair of parastomal hernia. The patient has history of rectal cancer and she has undergone a low AP resection with colostomy and the patient came into the hospital because of significant abdominal pain as well as constipation over the past 2 days as the patient resides at [facility] [place] the [place]. She was given Dulcolax suppositories through the stoma and she was also started on lactulose 30 g twice a day and she continued to complain of increased abdominal pain and distention and she was not able to have any bowel movements with the stoma. X-ray showed nonobstructive gas pattern and significant stool buildup and the patient was having increased a mount of pain along with nausea and she was unable to drink and eat. At that point, a CAT scan of the abdomen was done that showed large right-sided abdominal wall ventral hernia that contained multiple loops of small bowel measuring about 6 x 12 cm in size and the opening was 5.5 cm and the small bowel measuring up to 3.5 cm in diameter and there was incarceration and some mild dilated loops of small bowel consistent with a partial mechanical obstruction related to the hernia. Note that the patient was taken to the operating room today. Preoperatively, she was having some encephalopathy and she seemed to be gradually improving with conservative management. He was taken to the OR and she underwent exploratory laparotomy, repair of a parastomal hernia, lysis of adhesions, partial colectomy and repair of an incisional hernia and partial omentectomy. The estimated blood loss was only 100 mL. The previously inserted tachycardia colostomy was transected and it was replaced on the other side in the left upper quadrant. Postextubation, the patient some increased difficulty breathing. She was kept on a BiPAP at a pressure of 12/60 to me as of water and FiO2 of 50% and currently she is in the intensive care unit. Chest x-ray and blood gases are still pending. The patient was quite obtunded at a time of arrival and she is gradually recovering her level of consciousness for now. She is currently on IV fluids with normal state rate of 50 mL an hour. She is also taking a combination of Flagyl and meropenem as broad-spectrum antibiotics patient on Lovenox 40 mg subcu for DVT prophylaxis. Blood work from this morning showed a hemoglobin of 11.3 with a white cell count of 8.7. Function is stable with a creatinine of 0.7. The patient's albumin was down to 2.5 with a total protein of 5.5. SGPT and SGOT l within normal limits. On 05/01/2020 patient seen in follow-up in the intensive care unit, today is postoperative day #1, status post exploratory laparotomy, parastomal hernia repair, lysis of adhesions, partial colectomy, partial omentectomy, and repair of incisional hernia. This morning patient is awake, however she is encephalopathic, she is slow to respond, but does not appear to be in any acute distress other than some postoperative tenderness in her abdomen with light palpation, she is on 4 L of supplemental oxygen her pulse ox is 100%, she is breathing comfortably, she has been afebrile overnight, hemodynamically she is stable, she is on 0.9 normal saline at a rate of 100 ML per hour, no vasopressor support. Today's chest x-ray has been reviewed showing low lung volumes and mild cardiomegaly with small bilateral pleural effusions and multifocal right greater than left acute infiltrates and/or atelectasis. She is on Flagyl for antibiotic coverage, she's been afebrile overnight. Her incisions clean dry and intact, covered with surgical dressing, left lower quadrant colostomy is in place, with no gas or stool output in its. Patient has been nothing by mouth. Patient having 100% on 4 L, however she is frequently sleepy, she did wear BiPAP for several hours last night. Urine culture is positive for Providentia stuartii and Proteus mirabilis. There are hypoactive bowel sounds present. Lung sounds are positive for diminished breath sounds with scattered rales. Skin clean dry and warm, palpable distal pulses On 05/02/2020 patient seen in follow-up in the intensive care unit, she is lethargic, confused, but arousable, she is answering simple questions, mostly moans when her abdomen is touched, she has diffuse tenderness in her abdomen, particularly in the right upper quadrant, and around the site of the previous colostomy. The abdomen is nonrigid, it is relatively soft however patient is very tender with any palpation, her left lower quadrant colostomy has not produced any gas or stool yet, there are hypoactive bowel sounds in the upper quadrants. No nausea or vomiting, she had been BiPAP on and off through the day yesterday, she is currently on oxygen her pulse ox the 100%, hemodynamically she stable, not on any vasopressor support, she is on TPN at 30 ML per hour and maintenance IV fluids point and was sitting at a rate of 100 ML per hour, no other drips, she's been afebrile, she is sinus mechanism, slightly tachycardic at times, with a rate of 98-100 bpm, blood pressure is been stable, patient is generally swallowing, she is a positive fluid balance, she is +1095 mL over last 24 hours, and +2.2 L the day before. Has been nothing by mouth. Yesterday patient received a couple doses of IV Lasix, low urine output, producing 20-40 mL of urine output per hour. Remains on Flagyl for antibiotic coverage. Lungs reveal diminished breath sounds at the bases, today's chest x-ray shows hypoventilatory changes, interstitial and patchy airspace infiltrates. The patient is seen today 05/03/2020 in follow-up in the intensive care unit. She is opening her eyes spontaneously. She is answering yes no questions. Following some simple commands. Mostly moaning. He is receiving pain medications. She is maintaining O2 saturations up to 100% on 4 L/m per nasal cannula. Less tachycardic. Afebrile. Urine culture positive for low Providencia stuartii, Proteus mirabilis. White count 20.2. Hemoglobin 10.1. Sodium 137. Potassium 4.0. Creatinine 0.75. She is being nourished with TPN and lipids. Lovenox for DVT prophylaxis. Remains on IV Lasix. Antibiotics in the form of meropenem. On Flagyl. Chest x-ray revealing some bibasilar atelectasis. Objective - Vital Signs Vital signs: Vital Signs Temp 98.6 F 05/03/20 04:00 Pulse 93 05/03/20 09:00 Resp 12 05/03/20 09:00 BP 167/79 05/03/20 09:00 Pulse Ox 100 05/03/20 09:00 Intake & Output 05/02/20 05/03/20 05/03/20 18:59 06:59 18:59 Intake Total 1000 1129 453 Output Total 565 595 140 Balance 435 534 313 Weight 69.1 kg Intake: IV 1000 1129 453 Fat Emulsion 20% 250 ml 189 63 In Empty Bag 1 bag @ 21 mls/hr IV MoWeFr [facility] Rx#: [id number] Meropenem 1 gm In Sodium 100 100 100 Chloride 0.9% 100 ml @ 33 .3 mls/hr IVPB Q12HR [facility] Rx#:[id number] Mvi, Adult No.4 with Vit 360 90 K 10 ml Trace (Conc-1Ml/ Dose) 1 ml In Amino Acid 5%-D20w+Lytes*E* 1,000 ml @ 30 mls/hr IV .Q24H [facility] Rx#:[id number] Mvi, Adult No.4 with Vit 540 180 K 10 ml Trace (Conc-1Ml/ Dose) 1 ml In Amino Acid 5%-D20w+Lytes*E* 1,000 ml @ 60 mls/hr IV .[id number] [facility] Rx#:[id number] Potassium Chloride 20 meq 100 In Water For Injection 1 100ml.bag @ 50 mls/hr IVPB Q2H [facility] Rx#: [id number] Sodium Chloride 0.9% 1, 240 110 10 000 ml @ 20 mls/hr IV . Q24H [facility] Rx#:[id number] metroNIDAZOLE-NS PMX 500 200 100 100 mg In Saline 1 100ml.bag @ 100 mls/hr IVPB Q8HR [facility] Rx#:[id number] Output: Urine 565 595 140 Other: Voiding Method Indwelling Catheter Indwelling Catheter Indwelling Catheter - Exam GENERAL EXAM: Somnolent, but arousable, 85-year-old female patient on 4 L of oxygen with a pulse ox of 100% comfortable in no apparent distress. HEAD: Normocephalic/atraumatic. EYES: Normal reaction of pupils, equal size. Conjunctiva pink, sclera white. NOSE: Clear with pink turbinates. THROAT: No erythema or exudates. NECK: No masses, no JVD, no thyroid enlargement, no adenopathy. CHEST: No chest wall deformity. Symmetrical expansion. LUNGS: Equal air entry with crackles, rhonchi bibasilar CVS: Regular rate and rhythm, normal S1 and S2, no gallops, no murmurs, no rubs ABDOMEN: Soft, nonrigid, tender to light palpation mid abdominal incision is clean dry and intact, left lower quadrant colostomy with no gas or stool. No hepatosplenomegaly, normal bowel sounds, no guarding or rigidity. EXTREMITIES: No clubbing, diffuse generalized swelling, no cyanosis, 2+ pulses and upper and lower extremities. MUSCULOSKELETAL: Muscle strength and tone normal. SPINE: No scoliosis or deformity SKIN: No rashes CENTRAL NERVOUS SYSTEM: Sleepy, but arousable, confused. No focal deficits, tone is normal in all 4 extremities. - Labs CBC & Chem 7: 05/03/20 04:19 05/03/20 04:19 Labs: Abnormal Lab Results - Last 24 Hours (Table) 05/02/20 05/02/20 05/02/20 Range/Units 09:50 11:41 16:53 WBC (3.8-10.6) k/uL RBC (3.80-5.40) m/uL Hgb (11.4-16.0) gm/dL MCV (80.0-100.0) fL MCHC (31.0-37.0) g/dL Neutrophils # (1.3-7.7) k/uL Lymphocytes # (1.0-4.8) k/uL BUN (7-17) mg/dL Glucose (74-99) mg/dL POC Glucose (mg/dL) 146 H 152 H (75-99) mg/dL Calcium (8.4-10.2) mg/dL Procalcitonin 2.92 H (0.02-0.09) ng/mL 05/02/20 05/03/20 05/03/20 Range/Units 23:33 04:19 04:19 WBC 20.2 H (3.8-10.6) k/uL RBC 3.35 L (3.80-5.40) m/uL Hgb 10.1 L (11.4-16.0) gm/dL MCV 101.8 H (80.0-100.0) fL MCHC 29.7 L (31.0-37.0) g/dL Neutrophils # 18.2 H (1.3-7.7) k/uL Lymphocytes # 0.9 L (1.0-4.8) k/uL BUN 23 H (7-17) mg/dL Glucose 160 H (74-99) mg/dL POC Glucose (mg/dL) 143 H (75-99) mg/dL Calcium 8.1 L (8.4-10.2) mg/dL Procalcitonin (0.02-0.09) ng/mL 05/03/20 Range/Units 06:02 WBC (3.8-10.6) k/uL RBC (3.80-5.40) m/uL Hgb (11.4-16.0) gm/dL MCV (80.0-100.0) fL MCHC (31.0-37.0) g/dL Neutrophils # (1.3-7.7) k/uL Lymphocytes # (1.0-4.8) k/uL BUN (7-17) mg/dL Glucose (74-99) mg/dL POC Glucose (mg/dL) 161 H (75-99) mg/dL Calcium (8.4-10.2) mg/dL Procalcitonin (0.02-0.09) ng/mL Assessment and Plan Assessment: 1 exploratory laparotomy, repair of a parastomal hernia and lysis of adhesions with partial colectomy and repair of an incisional hernia and partial omentectomy. The patient is postop day #3. Surgery was done for incarcerated bowel within the large parastomal hernia. The patient mechanical obstruction and the patient a bowel obstruction. 2 acute hypoxic respiratory failure, post abdominal surgery and the patient is currently on a BiPAP at a pressure of 12/6 with an FiO2 of 50%. Chest x-ray shows low lung volumes, bilateral atelectasis/infiltrates, and small pleural effusion. Patient has been wearing BiPAP support on and off, and currently on 4 L of oxygen 3 Altered mentation, consider metabolic encephalopathy and underlying dementia. In addition, the patient is still recovering from anesthetics and the patient arrived from the operating room. 4 Acute urinary tract infection secondary to Providencia stuartii, Proteus m irabilis. Remains on meropenem 5 metabolic encephalopathy secondary to above with altered mentation 6 chronic stage II kidney disease, renal function is normalized with fluids 7 coronary artery disease 8 history of diastolic heart failure with an ejection fraction of 50% 8 hypertension 9 Sjogren syndrome 10 chronic anemia 11 chronic pain syndrome 12 overactive bladder 13 vascular dementia 14 history of rectal cancer post low AP resection and the patient had a colostomy, details discussed above 15 valvular heart disease with mild to moderate MR and TR and mild to moderate pulmonary hypertension 16 atrial fibrillation currently on a Cardizem drip at 10 mg an hour, rate is controlled for now, Cardizem drip has been discontinued and patient is in sinus right now Plan: The patient was seen and evaluated by Dr. Staton Chest x-ray and labs reviewed Continue the current treatment plan Continue antibiotics Continue nutritional support We will continue to follow and make further recommendations based on her clinical status I, the cosigning physician, performed a history & physical examination of the patient. Lungs sounds few scattered rhonchi, crackles in posterior bases. Maintaining good O2 saturations in the 90s on 4 L/m per nasal cannula. I discussed the assessment and plan of care with my nurse practitioner, Lian Daniel. I attest to the above note as dictated by her.
--- NOTE | 2020-05-03 11:11 | P.PN ---
Subjective Progress Note Date: 05/03/20 CHIEF COMPLAINT: incarcerated parastomal hernia HISTORY OF PRESENT ILLNESS: Patient seen and examined with Dr. Falcon. This is a 85-year-old female with a previous history of diverticulitis and colostomy. Patient has developed a large parastomal hernia with incarcerated small bowel. She has significant abdominal pain and problems with intermittent obstruction. Patient is currently in the ICU. She is status post exploratory laparotomy, repair of parastomal hernia, lysis of adhesions, partial colectomy, repair of incisional hernia and partial omentectomy on 04/30/20. Patient is currently on nasal cannula 4 L satting at 100%. Patient is still confused. She is moaning. She's been receiving Dilaudid and Percocet for her abdominal pain. She is on TPN for nutrition support. Patient still has no output per ostomy. She is receiving IV Lasix for fluid overload. Per nursing staff she is having some weeping from the incision due to the fluid overload. Afebrile. WBC 20.2 Chest x-ray there may be some improvement on the bibasilar infiltrates PHYSICAL EXAM: VITAL SIGNS: Reviewed. GENERAL: Well-developed in no acute distress. HEENT: No sclera icterus. Extraocular movements grossly intact. Moist buccal mucosa. Head is atraumatic, normocephalic. ABDOMEN: Soft. Nondistended. Colostomy left lower quadrant. Per nursing staff patient did have some redness at old ostomy site NEUROLOGIC: Patient is more awake but confused ASSESSMENT: 1. Incarcerated parastomal hernia, incisional hernia and adhesions status post exploratory laparotomy, repair of parastomal hernia, lysis of adhesions, partial colectomy, repair of incisional hernia and partial omentectomy. Postop day #3 2. Metabolic encephalopathy PLAN: -Continue ICU management -Continue supportive care -Continue current pain medication as needed -GI prophylaxis Protonix and DVT prophylaxis Lovenox Physician Technology Support Analyst note has been reviewed by physician. Signing provider agrees with the documented findings, assessment, and plan of care. Objective - Vital Signs Vital signs: Vital Signs Temp 98.6 F 05/03/20 04:00 Pulse 93 05/03/20 09:00 Resp 12 05/03/20 09:00 BP 167/79 05/03/20 09:00 Pulse Ox 100 05/03/20 09:00 Intake & Output 05/02/20 05/03/20 05/03/20 18:59 06:59 18:59 Intake Total 1000 1129 453 Output Total 565 595 140 Balance 435 534 313 Weight 69.1 kg Intake: IV 1000 1129 453 Fat Emulsion 20% 250 ml 189 63 In Empty Bag 1 bag @ 21 mls/hr IV MoWeFr [facility] Rx#: [id number] Meropenem 1 gm In Sodium 100 100 100 Chloride 0.9% 100 ml @ 33 .3 mls/hr IVPB Q12HR [facility] Rx#:[id number] Mvi, Adult No.4 with Vit 360 90 K 10 ml Trace (Conc-1Ml/ Dose) 1 ml In Amino Acid 5%-D20w+Lytes*E* 1,000 ml @ 30 mls/hr IV .Q24H [facility] Rx#:[id number] Mvi, Adult No.4 with Vit 540 180 K 10 ml Trace (Conc-1Ml/ Dose) 1 ml In Amino Acid 5%-D20w+Lytes*E* 1,000 ml @ 60 mls/hr IV .[id number] [facility] Rx#:[id number] Potassium Chloride 20 meq 100 In Water For Injection 1 100ml.bag @ 50 mls/hr IVPB Q2H [facility] Rx#: [id number] Sodium Chloride 0.9% 1, 240 110 10 000 ml @ 20 mls/hr IV . Q24H [facility] Rx#:[id number] metroNIDAZOLE-NS PMX 500 200 100 100 mg In Saline 1 100ml.bag @ 100 mls/hr IVPB Q8HR [facility] Rx#:[id number] Output: Urine 565 595 140 Other: Voiding Method Indwelling Catheter Indwelling Catheter Indwelling Catheter - Labs CBC & Chem 7: 05/03/20 04:19 05/03/20 04:19 Labs: Abnormal Lab Results - Last 24 Hours (Table) 05/02/20 05/02/20 05/02/20 Range/Units 09:50 11:41 16:53 WBC (3.8-10.6) k/uL RBC (3.80-5.40) m/uL Hgb (11.4-16.0) gm/dL MCV (80.0-100.0) fL MCHC (31.0-37.0) g/dL Neutrophils # (1.3-7.7) k/uL Lymphocytes # (1.0-4.8) k/uL BUN (7-17) mg/dL Glucose (74-99) mg/dL POC Glucose (mg/dL) 146 H 152 H (75-99) mg/dL Calcium (8.4-10.2) mg/dL Procalcitonin 2.92 H (0.02-0.09) ng/mL 05/02/20 05/03/20 05/03/20 Range/Units 23:33 04:19 04:19 WBC 20.2 H (3.8-10.6) k/uL RBC 3.35 L (3.80-5.40) m/uL Hgb 10.1 L (11.4-16.0) gm/dL MCV 101.8 H (80.0-100.0) fL MCHC 29.7 L (31.0-37.0) g/dL Neutrophils # 18.2 H (1.3-7.7) k/uL Lymphocytes # 0.9 L (1.0-4.8) k/uL BUN 23 H (7-17) mg/dL Glucose 160 H (74-99) mg/dL POC Glucose (mg/dL) 143 H (75-99) mg/dL Calcium 8.1 L (8.4-10.2) mg/dL Procalcitonin (0.02-0.09) ng/mL 05/03/20 Range/Units 06:02 WBC (3.8-10.6) k/uL RBC (3.80-5.40) m/uL Hgb (11.4-16.0) gm/dL MCV (80.0-100.0) fL MCHC (31.0-37.0) g/dL Neutrophils # (1.3-7.7) k/uL Lymphocytes # (1.0-4.8) k/uL BUN (7-17) mg/dL Glucose (74-99) mg/dL POC Glucose (mg/dL) 161 H (75-99) mg/dL Calcium (8.4-10.2) mg/dL Procalcitonin (0.02-0.09) ng/mL
[2020-05-03 11:46] LABS: Glucose,Whole Blood 202 mg/dL (75-99)
[2020-05-03] MEDS: MVI, ADULT NO.4 WITH VIT K 10 ML, TRACE (CONC-1ML/DOSE) 1 ML in AMINO ACID 5%-D20W+LYTE... IV SCH ×3 (14:23)
[2020-05-03] MEDS: SODIUM CHLORIDE 0.9% 1,000 ML IV SCH (14:24)
--- NOTE | 2020-05-03 15:08 | P.PN ---
Subjective Progress Note Date: 05/03/20 This is an 85-year-old female patient of Dr. Garcia and Dr. Pulido with past medical history of asthma, CAD with ischemic cardiomyopathy, previous history of lung cancer post resection who is known to have severe lower back pain, history of Klebsiella pneumoniae ESBL urinary tract infection, memory impairment, rectal cancer post low anterior resection with colostomy placement and she has had her stoma moved from one side to the other times to with significant peristomal hernia, patient developed to have a significant abdominal pain as well as constipation over the last few days at [facility] at that time she was given a Dulcolax suppository through the stoma and she was started on lactulose 30 g orally twice every day patient has been complaining of increased abdominal pain and distention not able to have a good BM through the stoma, an x-ray was done over there and that showed nonobstructive gas pattern with significant stool buildup, patient today was having increased amount of pain associated with nausea and not able to eat or drink she was dehydrated as well has not been eating much over the last few days, she was directed to go to the emergency department at [facility] where she was found to have an acute kidney injury as well a hyperkalemia, patient underwent CT abdomen and pelvis without contrast that showed a large right side abdominal wall ventral hernia that contains multiple loops of the small bowel hernia measures about 612 cm the opening is 5.5 cm the small bowel measures up to 3.5 cm in diameter there was incarcerated in and some mildly dilated loops of small bowel consistent with partial mechanical obstruction related to the hernia, patient was started on IV fluid as well as IV antibiotic, and surgical consultation was obtained from and had a long conversation with the emergency room physician on the complexity of the case and if the patient is not a candidate for any surgical intervention at [facility] she will need to be transferred to [facility], this was discussed with her over the phone. 04/21: Patient sitting up in bed in no apparent distress, she appears to be a bit short of breath, her IV fluids were decreased to 75 mL an hour, we'll monitor her input and output and daily weight, she was seen in consultation by cardiology in preparation for surgical intervention will be planned for tomorrow morning, I spoke general surgery and they feel that the patient can the served here for a better quality of life, and there is no need for the patient be transferred to a tertiary care center, cardiology consultation was obtained, echocardiogram will be done, EKG was done also continue beta gume in the form of metoprolol 25 mg orally twice every day, monitor the patient very closely at this time hold off ANGELICA inhibitor due to her kidney function, nephrology seen the patient as well and she seems to be doing better. 04/22: Patient is laying down in bed in minimal respiratory distress, she did receive 40 mg Lasix earlier today because of expiratory wheezes and increased shortness of breath, portable chest x-ray and abdominal x-ray was obtained, we will hold off any surgery at this time until obtaining the result of the x-ray patient does have a good stool output and her stoma at this time, echo care gram still pending at the time of dictation, I believe the patient needs to be monitored for another 24 hours before any surgical intervention. 04/23: Patient known to have mental status changes. CAT scan of the brain ordered which revealed only chronic age-related changes with chronic small vessel ischemia. CTA of the chest done yesterday revealed no pulmonary embolism. T here is new bilateral pleural effusions and pulmonary infiltrates and atelectasis. Heart appeared increased in size with probable congestive heart failure. Large pulmonary arteries consistent with pulmonary hypertension unchanged. Multiple old thoracic compression fractures. New compression frac ture of T4. Patient is afebrile, heart rate 114, blood pressure 182/87, pulse ox 92% on room air. CBC 14.7, hemoglobin 12. Sodium 143, potassium 3.8, chloride 110, CO2 16, BUN 21 and creatinine 0.86. Urine culture is positive for Providencia stuartii. Rocephin will be discontinued and patient started on meropenem 1 g IV piggyback every 8 hours. Echocardiogram reveals EF of 55-60% with mild concentric left ventricular hypertrophy, mild to moderate mitral regurgitation, [id number] tricuspid regurgitation, mild to moderate pulmonary hypertension. 2: Patient continues to have increased confusion and noted to have difficulty swallowing. Speech therapy has evaluated with recommendations. Consult has also been added for neurology for dysphagia. Medications reviewed and patient r esumed on Zyprexa and Lexapro. Patient is afebrile, heart rate 89, blood pressure 160/70, pulse ox 97% on 2 L nasal cannula. There is slight and there is a slight rise in her leukocytosis of 15.7. Hemoglobin is 11. Sodium is 148 potassium 3.2, chloride 113, CO2 20, BUN 25 and creatinine 1.12. IV fluids transition to dextrose 5% at 60 mL/h. Cardiology ordered Cardizem drip for episode of atrial fibrillation. She is continued on IV antibiotics with meropenem and Flagyl. Patient's will be contacted via phone and updated. Patient is not stable at this time for surgical intervention. 2: Patient has been seen by neurology for metabolic encephalopathy. X-ray of the chest reveals improving left lower lobe infiltrate, scattered infiltrates still present bilaterally. Prominence of the heart and pulmonary vasculature. Correlate for heart failure, atypical pulmonary edema could be considered, atypical pneumonia is within differential. Sodium 147, potassium 3.5, chloride 113, BUN 26 and creatinine 1.05. Ammonia level less than 9. TSH 0.490. Nephrology has continued D5W. Patient is unresponsive to questions, not verbalizing, staring blankly. is at bedside. Discussed CODE STATUS with the patient's and he is unable to make a decision at this time oth er than to keep her full code. MRI of the brain ordered to rule out brainstem infarct. General surgery continues to follow for the large parastomal hernia with incarceration, to be done if patient is medically stable. 2: MRI of the brain reveals age-related atrophy with confluence chronic appea ring. Ventricular white matter ischemic type changes. EEG is abnormal with moderate to severe encephalopathy. Patient apparently said yes and no to the nurse today. There's been no seizure activity noted. Patient is eating less than 25% of her meals. IV fluids been increased to 100 mL per hour per nephrology. WBC 20.9, hemoglobin 11.2. Sodium 147, potassium 3.7, chloride 115, CO2 25, BUN 23 and creatinine 0.75. Blood sugar 123. 25: Patient's mental status is improving, she is more awake and alert today, able to answer questions. Speech therapy has evaluated and plan to start trials of diet. Ostomy is functioning. Sodium level is better today at 146. Potassium is 3.7, chloride 114, CO2 25, BUN 23 and creatinine 0.81. She is still on Cardizem drip for atrial fibrillation. She is been afebrile, heart rate in the 80s, blood pressure 130/61, pulse ox 90% on 1 L nasal cannula. Patient continues on D5W at 100 mL per hour. 04/30: Patient is awake and alert. Mental status is much improved. She is scheduled for surgery today with Dr. Falcon. Patient's is at bedside. She has been afebrile, heart rate 75, blood pressure 144/76, pulse ox 90% on room air. WBC 8.7, hemoglobin 11.3. Sodium 136 otherwise electrolytes renal function are normal. Liver function tests are normal. Air in the ostomy bag. No stool at this point. Baez catheter draining clear tobin urine. 05/01: Patient remains in the intensive care unit on BiPAP. Patient is able states she feels better from yesterday. She is status post exploratory laparotomy, parastomal hernia repair, lysis of adhesions, partial colectomy, partial omentectomy, and repair of incisional hernia, postop day #1 patient appears to be comfortable at rest. Pulse ox is 100% on BiPAP. She has been afebrile, heart rate 89, blood pressure 125/72. W BC 17.8, hemoglobin 12. Sodium 136, potassium 4.3, chloride 107, CO2 21, BUN 14 and creatinine 0.78. Liver function tests normal. Patient is known to have generalized edema. Patient was given 1 dose of IV Lasix this morning and we will plan to repeat that this afternoon. Patient is continued on IV Flagyl. 05/02: Patient remains in the intensive care unit. Currently on BiPAP with 50% FiO2 with a pulse ox of 100%. She's been afebrile, heart rate 87, blood pres sure 122/52. Abdominal x-ray shows nonobstructive gas pattern. Chest x-ray this morning reveals marked hypo-ventilation changes. Worsening interstitial changes and patchy airspace infiltrates. WBC 27.8, hemoglobin 10.3, platelet count 222. Electrolytes and renal function are normal. Blood sugars are running in the 140s. Patient is complaining of significant pain. Dilaudid and morphine dosing has been adjusted. Patient is known to have difficulty with both medications with mental status changes. Blood no the patient does well with Percocet and will order 7.5 one every 6 hours as needed. Stoma is slightly dusky in color. The old ostomy site has erythema and warmth. Patient has no output from ostomy. Patient was started on TPN today and fluids discontinued. Due to generalized edema and anasarca, IV Lasix 40 mg daily ordered. Patient had good urine output yesterday after IV Lasix. Output is currently 10-15 mL per hour. 05/03: Patient remains in intensive care unit. She is still not had output from her colostomy. She is complaining of significant pain. We did add in the Percocet to be given orally. We will also ask the nurse to give Zyprexa as scheduled otherwise patient will have difficulty with mental status changes/psychosis. She remains nothing by mouth and has been started on TPN. Patient is able to follow simple commands and answer yes and no questions but meds patient is not at her baseline. She has been afebrile, WBC 20.2, hemoglobin 10.1, sodium 137, potassium 4, creatinine 0.75. Heart rate is running in the low 100s, she is been afebrile, blood pressure 164/70, pulse ox 99% on 2 L. Objective - Vital Signs Vital signs: Vital Signs Temp 97.7 F 05/03/20 12:00 Pulse 109 H 05/03/20 12:00 Resp 23 05/03/20 12:00 BP 164/70 05/03/20 12:00 Pulse Ox 99 05/03/20 12:00 Intake & Output 05/02/20 05/03/20 05/03/20 18:59 06:59 18:59 Intake Total 1000 1129 593 Output Total 565 595 415 Balance 435 534 178 Weight 69.1 kg Intake: IV 1000 1129 593 Fat Emulsion 20% 250 ml 189 63 In Empty Bag 1 bag @ 21 mls/hr IV MoWeFr [facility] Rx#: [id number] Meropenem 1 gm In Sodium 100 100 100 Chloride 0.9% 100 ml @ 33 .3 mls/hr IVPB Q12HR [facility] Rx#:[id number] Mvi, Adult No.4 with Vit 360 90 K 10 ml Trace (Conc-1Ml/ Dose) 1 ml In Amino Acid 5%-D20w+Lytes*E* 1,000 ml @ 30 mls/hr IV .Q24H [facility] Rx#:[id number] Mvi, Adult No.4 with Vit 540 300 K 10 ml Trace (Conc-1Ml/ Dose) 1 ml In Amino Acid 5%-D20w+Lytes*E* 1,000 ml @ 60 mls/hr IV .[id number] [facility] Rx#:[id number] Potassium Chloride 20 meq 100 In Water For Injection 1 100ml.bag @ 50 mls/hr IVPB Q2H [facility] Rx#: [id number] Sodium Chloride 0.9% 1, 240 110 30 000 ml @ 20 mls/hr IV . Q24H [facility] Rx#:[id number] metroNIDAZOLE-NS PMX 500 200 100 100 mg In Saline 1 100ml.bag @ 100 mls/hr IVPB Q8HR [facility] Rx#:[id number] Output: Urine 565 595 415 Other: Voiding Method Indwelling Catheter Indwelling Catheter Indwelling Catheter - Exam Review of Systems Constitutional: Reports anorexia, Reports fatigue, denies lethargy, Reports malaise, Reports weakness, Reports weight loss Eyes: denies blurred vision, denies bulging eye, denies decreased vision Ears: bilateral: decreased hearing Ears, nose, mouth and throat: Denies dysphagia, Denies neck lump, Denies sore throat Cardiovascular: Denies chest pain, Denies decreased exercise tolerance, Denies dyspnea on exertion, Denies lightheadedness, Denies rapid heart beat, Denies shortness of breath, Denies syncope Respiratory: Denies congestion, Denies cough with sputum, Denies home oxygen, Denies sleep apnea, Denies snoring, Denies wheezing Gastrointestinal: Reports abdominal pain worsening, Reports bloating, Reports constipation, Reports early satiety, Reports loss of appetite, Reports nausea, Reports vomiting Genitourinary: Denies dysuria, Denies nocturia Menstruation: Reports postmenopausal Musculoskeletal: Reports atrophy, Reports frequent falls, Reports gait dysfunction, Reports loss of height, Reports low back pain, Reports muscle weakness Musculoskeletal: absent: ankle pain, ankle stiffness, ankle swelling, elbow pain, elbow stiffness, elbow swelling, foot pain, foot stiffness, foot swelling, hand pain, hand stiffness, hand swelling, hip pain, hip stiffness, hip swelling, knee pain, knee stiffness, knee swelling, shoulder pain, shoulder stiffness, shoulder swelling, wrist pain, wrist stiffness, wrist swelling Integumentary: Denies pruritus, Denies rash Neurological: Reports balance difficulties, Reports gait dysfunction, Reports weakness, reported mental status changes Psychiatric: Denies anxiety, Denies depression Physical examination HEENT: Head is atraumatic, normocephalic, pupils were equal round reactive to light and accommodation, extraocular muscle movement were intact, sclera nonicteric conjunctiva are pale, mucous membranes of mouth are dry. Neck: Supple, no JVD, decreased carotid upstroke bilaterally. Chest: There is significant kyphosis present, decreased breath sounds at the bases, few rhonchi, no expiratory wheezes, no chest wall tenderness, no intercostal retractions. Heart: First heart sound is depressed, second heart sounds normal, there is systolic ejection murmur 2/6 located in the left border. Abdomen: Soft and moderate tenderness generalized, stoma to the left of midline is slightly dusky. Old stoma site has erythema and warmth. Stoma bag is empty. Extremities: There is 1+ edema, no calf tenderness, dorsalis pedis +1 bilaterally. Neurologic examination: Patient is awake and alert oriented to person, able to answer questions and follow simple commands. Patient appears to be quite uncomfortable. - Labs CBC & Chem 7: 05/03/20 04:19 05/03/20 04:19 Labs: Abnormal Lab Results - Last 24 Hours (Table) 05/02/20 05/02/20 05/02/20 Range/Units 09:50 16:53 23:33 WBC (3.8-10.6) k/uL RBC (3.80-5.40) m/uL Hgb (11.4-16.0) gm/dL MCV (80.0-100.0) fL MCHC (31.0-37.0) g/dL Neutrophils # (1.3-7.7) k/uL Lymphocytes # (1.0-4.8) k/uL BUN (7-17) mg/dL Glucose (74-99) mg/dL POC Glucose (mg/dL) 152 H 143 H (75-99) mg/dL Calcium (8.4-10.2) mg/dL Procalcitonin 2.92 H (0.02-0.09) ng/mL 05/03/20 05/03/20 05/03/20 Range/Units 04:19 04:19 06:02 WBC 20.2 H (3.8-10.6) k/uL RBC 3.35 L (3.80-5.40) m/uL Hgb 10.1 L (11.4-16.0) gm/dL MCV 101.8 H (80.0-100.0) fL MCHC 29.7 L (31.0-37.0) g/dL Neutrophils # 18.2 H (1.3-7.7) k/uL Lymphocytes # 0.9 L (1.0-4.8) k/uL BUN 23 H (7-17) mg/dL Glucose 160 H (74-99) mg/dL POC Glucose (mg/dL) 161 H (75-99) mg/dL Calcium 8.1 L (8.4-10.2) mg/dL Procalcitonin (0.02-0.09) ng/mL 05/03/20 Range/Units 11:43 WBC (3.8-10.6) k/uL RBC (3.80-5.40) m/uL Hgb (11.4-16.0) gm/dL MCV (80.0-100.0) fL MCHC (31.0-37.0) g/dL Neutrophils # (1.3-7.7) k/uL Lymphocytes # (1.0-4.8) k/uL BUN (7-17) mg/dL Glucose (74-99) mg/dL POC Glucose (mg/dL) 202 H (75-99) mg/dL Calcium (8.4-10.2) mg/dL Procalcitonin (0.02-0.09) ng/mL Assessment and Plan Plan: 1. Large right lateral abdominal wall hernia with incarceration status post repair of parastomal hernia, lysis of adhesions, partial colectomy, repair of incisional hernia, partial omentectomy. Continue to monitor input and output and daily weight, pain control, this is a high-risk patient, resume meropenem 1 g IV piggyback every 8 hours, continue metronidazole 500 mg IV piggyback every 8 hours, continue current pain management with Percocet if possible, monitor the patient respiratory status. 2. Acute kidney injury due to poor oral intake of fluid and acute tubular necrosis. Continue IV fluid, monitor input and output and daily weight, check the patient CMP tomorrow morning. 3. Hyperkalemia likely related to acute kidney injury. Continue to monitor 4. Metabolic encephalopathy secondary to acute kidney injury as well as incarcerated large ventral hernia. Continue continue IV antibiotic, monitor the patient very closely. 5. Chronic kidney failure CKD stage II currently with acute kidney injury con tinue IV fluid resuscitation repeat CMP tomorrow morning. 6. CAD and non-ischemic cardiomyopathy and chronic diastolic heart failure with ejection fraction of 50%. We will maintain the patient on metoprolol 7. Hypertension and hypertensive cardiovascular disease. Continue IV hydralazine as needed. 8. Sjogren syndrome. We'll hold off Salagen 9. Anemia of chronic medical illnesses. Continue to monitor the patient's CBC 10. Chronic pain syndrome. Continue Percocet if patient is able to take oral pain medicine.. 11. Overactive bladder. Discontinue Detrol. 12. 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 13. History of rectal cancer post-low anterior resection with colostomy placement . 14. DVT prophylaxis. Start the patient on Lovenox 40 mg subcutaneously every 24 hours. 15. GI prophylaxis. Protonix 40 mg IV push every 24 hours. 16. Recurrent depression. Continue Zyprexa and Lexapro. Patient to receive Zyprexa despite nothing by mouth status. 17. Acute urinary tract infection. Continue meropenem 1 g IV piggyback every 8 hours.. 18. Valvular heart disease with [id number] mitral regurgitation, [id number] tricuspid regurgitation and mild to moderate pulmonary hypertension. 19. Hypernatremia. Monitor 20. Sinus tachycardia and atrial fibrillation, paroxysmal. Continue metoprolol 21. Metabolic encephalopathy secondary to acute kidney injury, hyponatremia, incarcerated ventral hernia, Covid 19, UTI. MRI of the brain negative for acute findings. 22. Severe protein calorie malnutrition. Patient has been started on TPN. CODE STATUS: Full code Guarded prognosis. Discharge Plan: Return to [facility] once stable. Impression and plan of care have been directed as dictated by the signing physician. Caitlin Francis nurse practitioner acting as scribe for signing physician.
[2020-05-03 18:06] LABS: Glucose,Whole Blood 156 mg/dL (75-99)
[2020-05-03] MEDS: OLANZapine 7.5 MG TAB PO SCH (20:47)
[2020-05-03] MEDS: AMMONIUM LACTATE 12% LOTION 225 GM BTL TOPICAL SCH (20:48)
[2020-05-03 23:32] LABS: Glucose,Whole Blood 140 mg/dL (75-99)
[2020-05-04] MEDS: HYDROmorphone 1 MG/ML 1 ML SYRINGE IVP PRN ×5 (00:46→22:05)
[2020-05-04 04:28] LABS: Basophils # (A) 0.1 k/uL (0-0.2); Basophils % (A) 0 %; Eosinophils # (A) 0.2 k/uL (0-0.7); Eosinophils % (A) 1 %; HCT 34.8 % (34.0-46.0); HGB 10.9 gm/dL (11.4-16.0); Hypochromasia Slight; Lymphocytes # (A) 1.1 k/uL (1.0-4.8); Lymphocytes % (A) 6 %; MCH 31.3 pg (25.0-35.0); MCHC 31.2 g/dL (31.0-37.0); MCV 100.2 fL (80.0-100.0); Monocytes # (A) 0.9 k/uL (0-1.0); Monocytes % (A) 5 %; Neutrophils # (A) 14.4 k/uL (1.3-7.7); Neutrophils % (A) 85 %; Platelet Count 218 k/uL (150-450); RBC 3.47 m/uL (3.80-5.40); RDW 13.1 % (11.5-15.5); WBC 16.8 k/uL (3.8-10.6)
[2020-05-04 05:47] LABS: Glucose,Whole Blood 154 mg/dL (75-99)
[2020-05-04] MEDS: MVI, ADULT NO.4 WITH VIT K 10 ML, TRACE (CONC-1ML/DOSE) 1 ML in AMINO ACID 5%-D20W+LYTE... IV SCH ×6 (05:48→21:44)
[2020-05-04] MEDS: INSULIN ASPART (NovoLOG) 100 UNIT/ML VIAL SQ SCH ×3 (05:48→17:18)
[2020-05-04 06:35] LABS: Calcium 8.4 mg/dL (8.4-10.2); Magnesium 2.1 mg/dL (1.6-2.3); Phosphorus 3.6 mg/dL (2.5-4.5); Potassium 4.2 mmol/L (3.5-5.1)
--- NOTE | 2020-05-04 07:15 | XR ---
EXAMINATION TYPE: XR chest 1V portable DATE OF EXAM: 05/04/2020 HISTORY: Shortness of breath. COMPARISON: 05/03/2020 TECHNIQUE: Single view of the chest is submitted. FINDINGS: Demonstrated are scattered senescent parenchymal change. Progressive infiltrates throughout the right lung with small effusion. Mild patchy density left lower lobe. PICC line unchanged from prior study. The heart is stable. Hilar and mediastinal structures are within normal limits. Degenerative changes are seen of the dorsal spine. IMPRESSION: 1. Progressive infiltrates throughout the right lung with small effusion. Mild patchy density left l ower lobe.
[2020-05-04] MEDS: MEROPENEM 1 GM in SODIUM CHLORIDE 0.9% 100 ML IVPB SCH ×2 (08:01→21:45)
[2020-05-04] MEDS: SODIUM BICARBONATE TAB 650 MG TAB PO SCH ×3 (08:02→21:59)
[2020-05-04] MEDS: metroNIDAZOLE-NS PMX 500 MG in SALINE 1 100ML.BAG IVPB SCH ×2 (08:02→15:49)
[2020-05-04] MEDS: oxyCODONE-APAP 7.5-325MG 1 EACH TAB PO PRN (08:02)
[2020-05-04] MEDS: METOPROLOL SUCCINATE (ER) 25 MG TAB.ER.24H PO SCH ×2 (08:02→21:59)
[2020-05-04] MEDS: ESCITALOPRAM 10 MG TAB PO SCH (08:02)
[2020-05-04] MEDS: cycloSPORINE 0.05% OPHTH 0.4 ML DROPERETTE BOTH EYES SCH ×2 (08:03→22:02)
[2020-05-04] MEDS: FUROSEMIDE 10 MG/ML 4 ML VIAL IV SCH ×2 (08:03→22:01)
[2020-05-04] MEDS: PANTOPRAZOLE 40 MG/10 ML VIAL IVP SCH (08:03)
[2020-05-04] MEDS: ENOXAPARIN 40 MG/0.4 ML SYRINGE SQ SCH (08:03)
--- NOTE | 2020-05-04 09:44 | P.PN ---
Subjective Progress Note Date: 05/04/20 This is an 85-year-old female patient who underwent repair of parastomal hernia. The patient has history of rectal cancer and she has undergone a low AP resection with colostomy and the patient came into the hospital because of significant abdominal pain as well as constipation over the past 2 days as the patient resides at [facility] on the [place]. She was given Dulcolax suppositories through the stoma and she was also started on lactulose 30 g twice a day and she continued to complain of increased abdominal pain and distention and she was not able to have any bowel movements with the stoma. X-ray showed nonobstructive gas pattern and significant stool buildup and the patient was having increased a mount of pain along with nausea and she was unable to drink and eat. At that point, a CAT scan of the abdomen was done that showed large right-sided abdominal wall ventral hernia that contained multiple loops of small bowel measuring about 6 x 12 cm in size and the opening was 5.5 cm and the small bowel measuring up to 3.5 cm in diameter and there was incarceration and some mild dilated loops of small bowel consistent with a partial mechanical obstruction related to the hernia. Note that the patient was taken to the operating room today. Preoperatively, she was having some encephalopathy and she seemed to be gradually improving with conservative management. He was taken to the OR and she underwent exploratory laparotomy, repair of a parastomal hernia, lysis of adhesions, partial colectomy and repair of an incisional hernia and partial omentectomy. The estimated blood loss was only 100 mL. The previously inserted tachycardia colostomy was transected and it was replaced on the other side in the left upper quadrant. Postextubation, the patient some increased difficulty breathing. She was kept on a BiPAP at a pressure of 12/60 to me as of water and FiO2 of 50% and currently she is in the intensive care unit. Chest x-ray and blood gases are still pending. The patient was quite obtunded at a time of arrival and she is gradually recovering her level of consciousness for now. She is currently on IV fluids with normal state rate of 50 mL an hour. She is also taking a combination of Flagyl and meropenem as broad-spectrum antibiotics patient on Lovenox 40 mg subcu for DVT prophylaxis. Blood work from this morning showed a hemoglobin of 11.3 with a white cell count of 8.7. Function is stable with a creatinine of 0.7. The patient's albumin was down to 2.5 with a total protein of 5.5. SGPT and SGOT l within normal limits. On 05/01/2020 patient seen in follow-up in the intensive care unit, today is postoperative day #1, status post exploratory laparotomy, parastomal hernia repair, lysis of adhesions, partial colectomy, partial omentectomy, and repair of incisional hernia. This morning patient is awake, however she is encephalopathic, she is slow to respond, but does not appear to be in any acute distress other than some postoperative tenderness in her abdomen with light palpation, she is on 4 L of supplemental oxygen her pulse ox is 100%, she is breathing comfortably, she has been afebrile overnight, hemodynamically she is stable, she is on 0.9 normal saline at a rate of 100 ML per hour, no vasopressor support. Today's chest x-ray has been reviewed showing low lung volumes and mild cardiomegaly with small bilateral pleural effusions and multifocal right greater than left acute infiltrates and/or atelectasis. She is on Flagyl for antibiotic coverage, she's been afebrile overnight. Her incisions clean dry and intact, covered with surgical dressing, left lower quadrant colostomy is in place, with no gas or stool output in its. Patient has been nothing by mouth. Patient having 100% on 4 L, however she is frequently sleepy, she did wear BiPAP for several hours last night. Urine culture is positive for Providentia stuartii and Proteus mirabilis. There are hypoactive bowel sounds present. Lung sounds are positive for diminished breath sounds with scattered rales. Skin clean dry and warm, palpable distal pulses On 05/02/2020 patient seen in follow-up in the intensive care unit, she is lethargic, confused, but arousable, she is answering simple questions, mostly moans when her abdomen is touched, she has diffuse tenderness in her abdomen, particularly in the right upper quadrant, and around the site of the previous colostomy. The abdomen is nonrigid, it is relatively soft however patient is very tender with any palpation, her left lower quadrant colostomy has not produced any gas or stool yet, there are hypoactive bowel sounds in the upper quadrants. No nausea or vomiting, she had been BiPAP on and off through the day yesterday, she is currently on oxygen her pulse ox the 100%, hemodynamically she stable, not on any vasopressor support, she is on TPN at 30 ML per hour and maintenance IV fluids point and was sitting at a rate of 100 ML per hour, no other drips, she's been afebrile, she is sinus mechanism, slightly tachycardic at times, with a rate of 98-100 bpm, blood pressure is been stable, patient is generally swallowing, she is a positive fluid balance, she is +1095 mL over last 24 hours, and +2.2 L the day before. Has been nothing by mouth. Yesterday patient received a couple doses of IV Lasix, low urine output, producing 20-40 mL of urine output per hour. Remains on Flagyl for antibiotic coverage. Lungs reveal diminished breath sounds at the bases, today's chest x-ray shows hypoventilatory changes, interstitial and patchy airspace infiltrates. The patient is seen today 05/03/2020 in follow-up in the intensive care unit. She is opening her eyes spontaneously. She is answering yes no questions. Following some simple commands. Mostly moaning. He is receiving pain medications. She is maintaining O2 saturations up to 100% on 4 L/m per nasal cannula. Less tachycardic. Afebrile. Urine culture positive for low Providencia stuartii, Proteus mirabilis. White count 20.2. Hemoglobin 10.1. Sodium 137. Potassium 4.0. Creatinine 0.75. She is being nourished with TPN and lipids. Lovenox for DVT prophylaxis. Remains on IV Lasix. Antibiotics in the form of meropenem. On Flagyl. Chest x-ray revealing some bibasilar atelectasis. The patient is seen today 05/04/2020 in follow-up in the intensive care unit. She remains quite lethargic. She is mainly moaning. She does open her eyes to verbal stimuli. She is answering some yes, no questions. Moving all 4 extremities. Maintaining O2 saturations in the mid 90s on 3 L/m per nasal cannula. She's afebrile. Remains tachycardic. Abdomen slightly distended. Minimal output from the ostomy just a few trickles of clearish fluid. Incisions are slightly red. Abdomen is tender to palpation. She remains nothing by mouth. Chest x-rays revealing progressive infiltrates throughout the right lung with a small effusion. Mild patchy density in the left lower lobe. Urine culture positive for Providencia stuartii, Proteus mirabilis. She is continued on meropenem and Flagyl. She has 2+ lower extremity edema. Remains on IV diuretics daily. Objective - Vital Signs Vital signs: Vital Signs Temp 97.9 F 05/04/20 08:00 Pulse 106 H 05/04/20 09:00 Resp 22 05/04/20 09:00 BP 152/64 05/04/20 09:00 Pulse Ox 97 05/04/20 09:00 Intake & Output 05/03/20 05/04/20 05/04/20 18:59 06:59 18:59 Intake Total 1824 1955 340 Output Total 615 475 100 Balance 1209 1480 240 Weight 67.5 kg Intake: IV 813 1030 340 Fat Emulsion 20% 250 ml 63 In Empty Bag 1 bag @ 21 mls/hr IV MoWeFr [facility] Rx#: [id number] Meropenem 1 gm In Sodium 100 100 100 Chloride 0.9% 100 ml @ 33 .3 mls/hr IVPB Q12HR [facility] Rx#:[id number] Mvi, Adult No.4 with Vit 420 660 120 K 10 ml Trace (Conc-1Ml/ Dose) 1 ml In Amino Acid 5%-D20w+Lytes*E* 1,000 ml @ 60 mls/hr IV .[id number] [facility] Rx#:[id number] Sodium Chloride 0.9% 1, 130 170 20 000 ml @ 20 mls/hr IV . Q24H [facility] Rx#:[id number] metroNIDAZOLE-NS PMX 500 100 100 100 mg In Saline 1 100ml.bag @ 100 mls/hr IVPB Q8HR [facility] Rx#:[id number] Intake, IV Titration 1011 925 Amount Mvi, Adult No.4 with Vit 1011 925 K 10 ml Trace (Conc-1Ml/ Dose) 1 ml In Amino Acid 5%-D20w+Lytes*E* 1,000 ml @ 60 mls/hr IV .[id number] [facility] Rx#:[id number] Output: Urine 615 475 100 Other: Voiding Method Indwelling Catheter Indwelling Catheter - Exam GENERAL EXAM: Somnolent, but arousable, 85-year-old female patient on 3 L of oxygen with a pulse ox of 98% comfortable in no apparent distress. HEAD: Normocephalic/atraumatic. EYES: Normal reaction of pupils, equal size. Conjunctiva pink, sclera white. NOSE: Clear with pink turbinates. THROAT: No erythema or exudates. NECK: No masses, no JVD, no thyroid enlargement, no adenopathy. CHEST: No chest wall deformity. Symmetrical expansion. LUNGS: Equal air entry with crackles, rhonchi bibasilar, right greater than left CVS: Regular rate and rhythm, normal S1 and S2, no gallops, no murmurs, no rubs ABDOMEN: Soft, nonrigid, tender to light palpation mid abdominal incision is clean dry and intact, left lower quadrant colostomy with no gas or stool. No hepatosplenomegaly, normal bowel sounds, no guarding or rigidity. EXTREMITIES: No clubbing, diffuse generalized swelling, no cyanosis, 2+ pulses and upper and lower extremities. MUSCULOSKELETAL: Muscle strength and tone normal. SPINE: No scoliosis or deformity SKIN: No rashes CENTRAL NERVOUS SYSTEM: Sleepy, but arousable, confused. No focal deficits, tone is normal in all 4 extremities. - Labs CBC & Chem 7: 05/04/20 04:00 05/04/20 05:47 Labs: Abnormal Lab Results - Last 24 Hours (Table) 05/03/20 05/03/20 05/03/20 Range/Units 04:19 11:43 18:04 WBC (3.8-10.6) k/uL RBC (3.80-5.40) m/uL Hgb (11.4-16.0) gm/dL MCV (80.0-100.0) fL Neutrophils # (1.3-7.7) k/uL BUN (7-17) mg/dL Glucose (74-99) mg/dL POC Glucose (mg/dL) 202 H 156 H (75-99) mg/dL Procalcitonin 2.00 H (0.02-0.09) ng/mL 05/03/20 05/04/20 05/04/20 Range/Units 23:31 04:00 05:45 WBC 16.8 H (3.8-10.6) k/uL RBC 3.47 L (3.80-5.40) m/uL Hgb 10.9 L (11.4-16.0) gm/dL MCV 100.2 H (80.0-100.0) fL Neutrophils # 14.4 H (1.3-7.7) k/uL BUN (7-17) mg/dL Glucose (74-99) mg/dL POC Glucose (mg/dL) 140 H 154 H (75-99) mg/dL Procalcitonin (0.02-0.09) ng/mL 05/04/20 Range/Units 05:47 WBC (3.8-10.6) k/uL RBC (3.80-5.40) m/uL Hgb (11.4-16.0) gm/dL MCV (80.0-100.0) fL Neutrophils # (1.3-7.7) k/uL BUN 34 H (7-17) mg/dL Glucose 161 H (74-99) mg/dL POC Glucose (mg/dL) (75-99) mg/dL Procalcitonin (0.02-0.09) ng/mL Assessment and Plan Assessment: 1 exploratory laparotomy, repair of a parastomal hernia and lysis of adhesions with partial colectomy and repair of an incisional hernia and partial omentectomy. The patient is postop day #4. Surgery was done for incarcerated bowel within the large parastomal hernia. The patient had a mechanical bowel obstruction. 2 acute hypoxic respiratory failure, post abdominal surgery and the patient is currently on 3 L nasal cannula. Patient has been wearing BiPAP support on and off, and currently on 3 L of oxygen. Increase infiltrate in the right lung base. Small effusion. Continued atelectasis of the left base 3 Altered mentation, consider metabolic encephalopathy and underlying dementia. In addition, the patient is still recovering from anesthetics and the patient arrived from the operating room. 4 Acute urinary tract infection secondary to Providencia stuartii, Proteus mirabilis. Remains on meropenem 5 metabolic encephalopathy secondary to above with altered mentation 6 chronic stage II kidney disease, renal function is normalized with fluids 7 coronary artery disease 8 history of diastolic heart failure with an ejection fraction of 50% 8 hypertension 9 Sjogren syndrome 10 chronic anemia 11 chronic pain syndrome 12 overactive bladder 13 vascular dementia 14 history of rectal cancer post low AP resection and the patient had a colostomy, details discussed above 15 valvular heart disease with mild to moderate MR and TR and mild to moderate pulmonary hypertension 16 atrial fibrillation currently on a Cardizem drip at 10 mg an hour, rate is controlled for now, Cardizem drip has been discontinued and patient is in sinus right now Plan: The patient was seen and evaluated by Dr. Staton Chest x-ray and labs reviewed Increase Lasix to 40 mg every 12 hours Repeat CoVID 19 screen Continue nutritional support Continue to observe for stoma output We will continue to follow and make further recommendations based on her cli nical status I, the cosigning physician, performed a history & physical examination of the patient. Lungs sounds few scattered rhonchi, crackles in posterior bases, right greater than left. Maintaining good O2 saturations in the 90s on 3 L/m per nasal cannula. I discussed the assessment and plan of care with my nurse practitioner, Lian Daniel. I attest to the above note as dictated by her.
[2020-05-04 11:15] LABS: Glucose,Whole Blood 174 mg/dL (75-99)
--- NOTE | 2020-05-04 11:30 | P.PN ---
Subjective Progress Note Date: 05/04/20 CHIEF COMPLAINT: incarcerated parastomal hernia HISTORY OF PRESENT ILLNESS: Patient seen and examined with Dr. Falcon. This is a 85-year-old female with a previous history of diverticulitis and colostomy. Patient has developed a large parastomal hernia with incarcerated small bowel. She has significant abdominal pain and problems with intermittent obstruction. Patient is currently in the ICU. She is status post exploratory laparotomy, repair of parastomal hernia, lysis of adhesions, partial colectomy, repair of incisional hernia and partial omentectomy on 04/30/20. Patient is currently on nasal cannula 3 L satting at 100%. Patient is still confused. She is lethargic. She's been receiving Dilaudid and Percocet for her abdominal pain. She is on TPN for nutrition support. Patient still has no stool or gas per ostomy. She is receiving IV Lasix for fluid overload. Discussed case with ICU nurse. Afebrile. She is tachycardic. WBC 16.8 Chest x-ray progressive infiltrates throughout the right lung with small effusion. Mild patchy density left lower lobe. PHYSICAL EXAM: VITAL SIGNS: Reviewed. GENERAL: Well-developed in no acute distress. HEENT: No sclera icterus. Extraocular movements grossly intact. Moist buccal mucosa. Head is atraumatic, normocephalic. ABDOMEN: Soft. Nondistended. Colostomy left lower quadrant. Patient has some serous drainage from incision site. There is serosanguineous drainage from the ostomy. NEUROLOGIC: Patient is lethargic ASSESSMENT: 1. Incarcerated parastomal hernia, incisional hernia and adhesions status post exploratory laparotomy, repair of parastomal hernia, lysis of adhesions, partial colectomy, repair of incisional hernia and partial omentectomy. Postop day #4 2. Metabolic encephalopathy PLAN: -Continue ICU management -Continue supportive care -Continue antibiotics -Continue current pain medication as needed -GI prophylaxis Protonix and DVT prophylaxis Lovenox Physician Shaker Repairer note has been reviewed by physician. Signing provider agrees with the documented findings, assessment, and plan of care. Objective - Vital Signs Vital signs: Vital Signs Temp 97.9 F 05/04/20 08:00 Pulse 86 05/04/20 10:00 Resp 11 L 05/04/20 10:00 BP 144/62 05/04/20 10:00 Pulse Ox 100 05/04/20 10:00 Intake & Output 05/03/20 05/04/20 05/04/20 18:59 06:59 18:59 Intake Total 1824 1955 460 Output Total 615 475 450 Balance 1209 1480 10 Weight 67.5 kg 67.5 kg Intake: IV 813 1030 460 Fat Emulsion 20% 250 ml 63 In Empty Bag 1 bag @ 21 mls/hr IV MoWeFr [facility] Rx#: [id number] Meropenem 1 gm In Sodium 100 100 100 Chloride 0.9% 100 ml @ 33 .3 mls/hr IVPB Q12HR [facility] Rx#:[id number] Mvi, Adult No.4 with Vit 420 660 240 K 10 ml Trace (Conc-1Ml/ Dose) 1 ml In Amino Acid 5%-D20w+Lytes*E* 1,000 ml @ 60 mls/hr IV .[id number] [facility] Rx#:[id number] Sodium Chloride 0.9% 1, 130 170 20 000 ml @ 20 mls/hr IV . Q24H [facility] Rx#:[id number] metroNIDAZOLE-NS PMX 500 100 100 100 mg In Saline 1 100ml.bag @ 100 mls/hr IVPB Q8HR [facility] Rx#:[id number] Intake, IV Titration 1011 925 Amount Mvi, Adult No.4 with Vit 1011 925 K 10 ml Trace (Conc-1Ml/ Dose) 1 ml In Amino Acid 5%-D20w+Lytes*E* 1,000 ml @ 60 mls/hr IV .[id number] [facility] Rx#:[id number] Output: Urine 615 475 450 Other: Voiding Method Indwelling Catheter Indwelling Catheter Indwelling Catheter - Labs CBC & Chem 7: 05/04/20 04:00 05/04/20 05:47 Labs: Abnormal Lab Results - Last 24 Hours (Table) 05/03/20 05/03/20 05/03/20 Range/Units 04:19 11:43 18:04 WBC (3.8-10.6) k/uL RBC (3.80-5.40) m/uL Hgb (11.4-16.0) gm/dL MCV (80.0-100.0) fL Neutrophils # (1.3-7.7) k/uL BUN (7-17) mg/dL Glucose (74-99) mg/dL POC Glucose (mg/dL) 202 H 156 H (75-99) mg/dL Procalcitonin 2.00 H (0.02-0.09) ng/mL 05/03/20 05/04/20 05/04/20 Range/Units 23:31 04:00 05:45 WBC 16.8 H (3.8-10.6) k/uL RBC 3.47 L (3.80-5.40) m/uL Hgb 10.9 L (11.4-16.0) gm/dL MCV 100.2 H (80.0-100.0) fL Neutrophils # 14.4 H (1.3-7.7) k/uL BUN (7-17) mg/dL Glucose (74-99) mg/dL POC Glucose (mg/dL) 140 H 154 H (75-99) mg/dL Procalcitonin (0.02-0.09) ng/mL 05/04/20 05/04/20 Range/Units 05:47 11:14 WBC (3.8-10.6) k/uL RBC (3.80-5.40) m/uL Hgb (11.4-16.0) gm/dL MCV (80.0-100.0) fL Neutrophils # (1.3-7.7) k/uL BUN 34 H (7-17) mg/dL Glucose 161 H (74-99) mg/dL POC Glucose (mg/dL) 174 H (75-99) mg/dL Procalcitonin (0.02-0.09) ng/mL
[2020-05-04] MEDS: SODIUM CHLORIDE 0.9% 1,000 ML IV SCH (14:04)
--- NOTE | 2020-05-04 16:14 | P.PN ---
Subjective Progress Note Date: 05/04/20 This is an 85-year-old female patient of Dr. Garcia and Dr. Pulido with past medical history of asthma, CAD with ischemic cardiomyopathy, previous history of lung cancer post resection who is known to have severe lower back pain, history of Klebsiella pneumoniae ESBL urinary tract infection, memory impairment, rectal cancer post low anterior resection with colostomy placement and she has had her stoma moved from one side to the other times to with significant peristomal hernia, patient developed to have a significant abdominal pain as well as constipation over the last few days at [facility] at that time she was given a Dulcolax suppository through the stoma and she was started on lactulose 30 g orally twice every day patient has been complaining of increased abdominal pain and distention not able to have a good BM through the stoma, an x-ray was done over there and that showed nonobstructive gas pattern with significant stool buildup, patient today was having increased amount of pain associated with nausea and not able to eat or drink she was dehydrated as well has not been eating much over the last few days, she was directed to go to the emergency department at [facility] where she was found to have an acute kidney injury as well a hyperkalemia, patient underwent CT abdomen and pelvis without contrast that showed a large right side abdominal wall ventral hernia that contains multiple loops of the small bowel hernia measures about 612 cm the opening is 5.5 cm the small bowel measures up to 3.5 cm in diameter there was incarcerated in and some mildly dilated loops of small bowel consistent with partial mechanical obstruction related to the hernia, patient was started on IV fluid as well as IV antibiotic, and surgical consultation was obtained from and had a long conversation with the emergency room physician on the complexity of the case and if the patient is not a candidate for any surgical intervention at [facility] she will need to be transferred to [facility], this was discussed with her over the phone. 04/21: Patient sitting up in bed in no apparent distress, she appears to be a bit short of breath, her IV fluids were decreased to 75 mL an hour, we'll monitor her input and output and daily weight, she was seen in consultation by cardiology in preparation for surgical intervention will be planned for tomorrow morning, I spoke general surgery and they feel that the patient can the served here for a better quality of life, and there is no need for the patient be transferred to a tertiary care center, cardiology consultation was obtained, echocardiogram will be done, EKG was done also continue beta gume in the form of metoprolol 25 mg orally twice every day, monitor the patient very closely at this time hold off ANGELICA inhibitor due to her kidney function, nephrology seen the patient as well and she seems to be doing better. 04/22: Patient is laying down in bed in minimal respiratory distress, she did receive 40 mg Lasix earlier today because of expiratory wheezes and increased shortness of breath, portable chest x-ray and abdominal x-ray was obtained, we will hold off any surgery at this time until obtaining the result of the x-ray patient does have a good stool output and her stoma at this time, echo care gram still pending at the time of dictation, I believe the patient needs to be monitored for another 24 hours before any surgical intervention. 04/23: Patient known to have mental status changes. CAT scan of the brain ordered which revealed only chronic age-related changes with chronic small vessel ischemia. CTA of the chest done yesterday revealed no pulmonary embolism. T here is new bilateral pleural effusions and pulmonary infiltrates and atelectasis. Heart appeared increased in size with probable congestive heart failure. Large pulmonary arteries consistent with pulmonary hypertension unchanged. Multiple old thoracic compression fractures. New compression frac ture of T4. Patient is afebrile, heart rate 114, blood pressure 182/87, pulse ox 92% on room air. CBC 14.7, hemoglobin 12. Sodium 143, potassium 3.8, chloride 110, CO2 16, BUN 21 and creatinine 0.86. Urine culture is positive for Providencia stuartii. Rocephin will be discontinued and patient started on meropenem 1 g IV piggyback every 8 hours. Echocardiogram reveals EF of 55-60% with mild concentric left ventricular hypertrophy, mild to moderate mitral regurgitation, [id number] tricuspid regurgitation, mild to moderate pulmonary hypertension. 2: Patient continues to have increased confusion and noted to have difficulty swallowing. Speech therapy has evaluated with recommendations. Consult has also been added for neurology for dysphagia. Medications reviewed and patient r esumed on Zyprexa and Lexapro. Patient is afebrile, heart rate 89, blood pressure 160/70, pulse ox 97% on 2 L nasal cannula. There is slight and there is a slight rise in her leukocytosis of 15.7. Hemoglobin is 11. Sodium is 148 potassium 3.2, chloride 113, CO2 20, BUN 25 and creatinine 1.12. IV fluids transition to dextrose 5% at 60 mL/h. Cardiology ordered Cardizem drip for episode of atrial fibrillation. She is continued on IV antibiotics with meropenem and Flagyl. Patient's will be contacted via phone and updated. Patient is not stable at this time for surgical intervention. 2: Patient has been seen by neurology for metabolic encephalopathy. X-ray of the chest reveals improving left lower lobe infiltrate, scattered infiltrates still present bilaterally. Prominence of the heart and pulmonary vasculature. Correlate for heart failure, atypical pulmonary edema could be considered, atypical pneumonia is within differential. Sodium 147, potassium 3.5, chloride 113, BUN 26 and creatinine 1.05. Ammonia level less than 9. TSH 0.490. Nephrology has continued D5W. Patient is unresponsive to questions, not verbalizing, staring blankly. is at bedside. Discussed CODE STATUS with the patient's and he is unable to make a decision at this time oth er than to keep her full code. MRI of the brain ordered to rule out brainstem infarct. General surgery continues to follow for the large parastomal hernia with incarceration, to be done if patient is medically stable. 2: MRI of the brain reveals age-related atrophy with confluence chronic appea ring. Ventricular white matter ischemic type changes. EEG is abnormal with moderate to severe encephalopathy. Patient apparently said yes and no to the nurse today. There's been no seizure activity noted. Patient is eating less than 25% of her meals. IV fluids been increased to 100 mL per hour per nephrology. WBC 20.9, hemoglobin 11.2. Sodium 147, potassium 3.7, chloride 115, CO2 25, BUN 23 and creatinine 0.75. Blood sugar 123. 25: Patient's mental status is improving, she is more awake and alert today, able to answer questions. Speech therapy has evaluated and plan to start trials of diet. Ostomy is functioning. Sodium level is better today at 146. Potassium is 3.7, chloride 114, CO2 25, BUN 23 and creatinine 0.81. She is still on Cardizem drip for atrial fibrillation. She is been afebrile, heart rate in the 80s, blood pressure 130/61, pulse ox 90% on 1 L nasal cannula. Patient continues on D5W at 100 mL per hour. 04/30: Patient is awake and alert. Mental status is much improved. She is scheduled for surgery today with Dr. Falcon. Patient's is at bedside. She has been afebrile, heart rate 75, blood pressure 144/76, pulse ox 90% on room air. WBC 8.7, hemoglobin 11.3. Sodium 136 otherwise electrolytes renal function are normal. Liver function tests are normal. Air in the ostomy bag. No stool at this point. Baez catheter draining clear tobin urine. 05/01: Patient remains in the intensive care unit on BiPAP. Patient is able states she feels better from yesterday. She is status post exploratory laparotomy, parastomal hernia repair, lysis of adhesions, partial colectomy, partial omentectomy, and repair of incisional hernia, postop day #1 patient appears to be comfortable at rest. Pulse ox is 100% on BiPAP. She has been afebrile, heart rate 89, blood pressure 125/72. W BC 17.8, hemoglobin 12. Sodium 136, potassium 4.3, chloride 107, CO2 21, BUN 14 and creatinine 0.78. Liver function tests normal. Patient is known to have generalized edema. Patient was given 1 dose of IV Lasix this morning and we will plan to repeat that this afternoon. Patient is continued on IV Flagyl. 05/02: Patient remains in the intensive care unit. Currently on BiPAP with 50% FiO2 with a pulse ox of 100%. She's been afebrile, heart rate 87, blood pres sure 122/52. Abdominal x-ray shows nonobstructive gas pattern. Chest x-ray this morning reveals marked hypo-ventilation changes. Worsening interstitial changes and patchy airspace infiltrates. WBC 27.8, hemoglobin 10.3, platelet count 222. Electrolytes and renal function are normal. Blood sugars are running in the 140s. Patient is complaining of significant pain. Dilaudid and morphine dosing has been adjusted. Patient is known to have difficulty with both medications with mental status changes. Blood no the patient does well with Percocet and will order 7.5 one every 6 hours as needed. Stoma is slightly dusky in color. The old ostomy site has erythema and warmth. Patient has no output from ostomy. Patient was started on TPN today and fluids discontinued. Due to generalized edema and anasarca, IV Lasix 40 mg daily ordered. Patient had good urine output yesterday after IV Lasix. Output is currently 10-15 mL per hour. 05/03: Patient remains in intensive care unit. She is still not had output from her colostomy. She is complaining of significant pain. We did add in the Percocet to be given orally. We will also ask the nurse to give Zyprexa as scheduled otherwise patient will have difficulty with mental status changes/psychosis. She remains nothing by mouth and has been started on TPN. Patient is able to follow simple commands and answer yes and no questions but meds patient is not at her baseline. She has been afebrile, WBC 20.2, hemoglobin 10.1, sodium 137, potassium 4, creatinine 0.75. Heart rate is running in the low 100s, she is been afebrile, blood pressure 164/70, pulse ox 99% on 2 L. 05/04: Patient remains in the intensive care unit. The patient is placed on BiPAP pulse ox 100% with 50% FiO2. She continues to have difficulty with pain control. TPN is in place. Lasix was increased today to 40 milligrams IV every 12 hours. Repeat Covid has been ordered. Chest x-ray reveals progressive infiltrates throughout the right lung with small effusions. Mild patchy density left lower lobe. Patient has not had any output from colostomy. Stoma is still dusky. Prognosis is guarded. Objective - Vital Signs Vital signs: Vital Signs Temp 98.1 F 05/04/20 12:00 Pulse 101 H 05/04/20 14:00 Resp 17 05/04/20 14:00 BP 111/50 05/04/20 14:00 Pulse Ox 100 05/04/20 14:00 Intake & Output 05/03/20 05/04/20 05/04/20 18:59 06:59 18:59 Intake Total 1824 1955 740 Output Total 615 475 865 Balance 1209 1480 -125 Weight 67.5 kg 67.5 kg Intake: IV 813 1030 740 Fat Emulsion 20% 250 ml 63 In Empty Bag 1 bag @ 21 mls/hr IV MoWeFr [facility] Rx#: [id number] Meropenem 1 gm In Sodium 100 100 100 Chloride 0.9% 100 ml @ 33 .3 mls/hr IVPB Q12HR [facility] Rx#:[id number] Mvi, Adult No.4 with Vit 420 660 480 K 10 ml Trace (Conc-1Ml/ Dose) 1 ml In Amino Acid 5%-D20w+Lytes*E* 1,000 ml @ 60 mls/hr IV .[id number] [facility] Rx#:[id number] Sodium Chloride 0.9% 1, 130 170 60 000 ml @ 20 mls/hr IV . Q24H [facility] Rx#:[id number] metroNIDAZOLE-NS PMX 500 100 100 100 mg In Saline 1 100ml.bag @ 100 mls/hr IVPB Q8HR [facility] Rx#:[id number] Intake, IV Titration 1011 925 Amount Mvi, Adult No.4 with Vit 1011 925 K 10 ml Trace (Conc-1Ml/ Dose) 1 ml In Amino Acid 5%-D20w+Lytes*E* 1,000 ml @ 60 mls/hr IV .[id number] [facility] Rx#:[id number] Output: Urine 615 475 865 Other: Voiding Method Indwelling Catheter Indwelling Catheter Indwelling Catheter - Exam Review of Systems Constitutional: Reports anorexia, Reports fatigue, denies lethargy, Reports malaise, Reports weakness, Reports weight loss. Complains of significant pain. Eyes: denies blurred vision, denies bulging eye, denies decreased vision Ears: bilateral: decreased hearing Ears, nose, mouth and throat: Denies dysphagia, Denies neck lump, Denies sore throat Cardiovascular: Denies chest pain, Denies decreased exercise tolerance, Denies dyspnea on exertion, Denies lightheadedness, Denies rapid heart beat, Denies shortness of breath, Denies syncope Respiratory: Denies congestion, Denies cough with sputum, Denies home oxygen, Denies sleep apnea, Denies snoring, Denies wheezing Gastrointestinal: Reports abdominal pain worsening, Reports bloating, Reports constipation, Reports early satiety, Reports loss of appetite, Reports nausea, Reports vomiting Genitourinary: Denies dysuria, Denies nocturia Menstruation: Reports postmenopausal Musculoskeletal: Reports atrophy, Reports frequent falls, Reports gait dysfunction, Reports loss of height, Reports low back pain, Reports muscle weakness Musculoskeletal: absent: ankle pain, ankle stiffness, ankle swelling, elbow pain, elbow stiffness, elbow swelling, foot pain, foot stiffness, foot swelling, hand pain, hand stiffness, hand swelling, hip pain, hip stiffness, hip swelling, knee pain, knee stiffness, knee swelling, shoulder pain, shoulder stiffness, shoulder swelling, wrist pain, wrist stiffness, wrist swelling Integumentary: Denies pruritus, Denies rash Neurological: Reports balance difficulties, Reports gait dysfunction, Reports weakness, reported mental status changes Psychiatric: Denies anxiety, Denies depression Physical examination HEENT: Head is atraumatic, normocephalic, pupils were equal round reactive to light and accommodation, extraocular muscle movement were intact, sclera nonicteric conjunctiva are pale, mucous membranes of mouth are dry. Neck: Supple, no JVD, decreased carotid upstroke bilaterally. Chest: There is significant kyphosis present, decreased breath sounds at the bases, few rhonchi, no expiratory wheezes, no chest wall tenderness, no intercostal retractions. Heart: First heart sound is depressed, second heart sounds normal, there is systolic ejection murmur 2/6 located in the left border. Abdomen: Soft and moderate tenderness generalized, stoma to the left of midline is slightly dusky. Old stoma site has erythema and warmth. Stoma bag is empty. Positive drainage from both surgical sites. Extremities: There is 1+ edema, no calf tenderness, dorsalis pedis +1 bilaterally. Neurologic examination: Patient is awake and alert oriented to person, able to answer questions and follow simple commands. Patient appears to be quite uncomfortable. - Labs CBC & Chem 7: 05/04/20 04:00 05/04/20 05:47 Labs: Abnormal Lab Results - Last 24 Hours (Table) 05/03/20 05/03/20 05/04/20 Range/Units 18:04 23:31 04:00 WBC 16.8 H (3.8-10.6) k/uL RBC 3.47 L (3.80-5.40) m/uL Hgb 10.9 L (11.4-16.0) gm/dL MCV 100.2 H (80.0-100.0) fL Neutrophils # 14.4 H (1.3-7.7) k/uL BUN (7-17) mg/dL Glucose (74-99) mg/dL POC Glucose (mg/dL) 156 H 140 H (75-99) mg/dL 05/04/20 05/04/20 05/04/20 Range/Units 05:45 05:47 11:14 WBC (3.8-10.6) k/uL RBC (3.80-5.40) m/uL Hgb (11.4-16.0) gm/dL MCV (80.0-100.0) fL Neutrophils # (1.3-7.7) k/uL BUN 34 H (7-17) mg/dL Glucose 161 H (74-99) mg/dL POC Glucose (mg/dL) 154 H 174 H (75-99) mg/dL Assessment and Plan Plan: 1. Large right lateral abdominal wall hernia with incarceration status post repair of parastomal hernia, lysis of adhesions, partial colectomy, repair of incisional hernia, partial omentectomy. Continue to monitor input and output and daily weight, pain control, this is a high-risk patient, tinea meropenem 1 g IV piggyback every 8 hours, continue current pain management with Percocet if possible, monitor the patient respiratory status. 2. Acute kidney injury due to poor oral intake of fluid and acute tubular necrosis. Continue IV fluid, monitor input and output and daily weight, check the patient CMP tomorrow morning. 3. Hyperkalemia likely related to acute kidney injury. Continue to monitor 4. Metabolic encephalopathy secondary to acute kidney injury as well as incarcerated large ventral hernia. Continue continue IV antibiotic, monitor the patient very closely. 5. Chronic kidney failure CKD stage II currently with acute kidney injury continue IV fluid resuscitation repeat CMP tomorrow morning. 6. CAD and non-ischemic cardiomyopathy and chronic diastolic heart failure with ejection fraction of 50%. We will maintain the patient on metoprolol 7. Hypertension and hypertensive cardiovascular disease. Continue IV hydralazine as needed. 8. Sjogren syndrome. We'll hold off Salagen 9. Anemia of chronic medical illnesses. Continue to monitor the patient's CBC 10. Chronic pain syndrome. Continue Percocet if patient is able to take oral pain medicine.. 11. Overactive bladder. Discontinue Detrol. 12. 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 13. History of rectal cancer post-low anterior resection with colostomy placement . 14. DVT prophylaxis. Start the patient on Lovenox 40 mg subcutaneously every 24 hours. 15. GI prophylaxis. Protonix 40 mg IV push every 24 hours. 16. Recurrent depression. Continue Zyprexa and Lexapro. Patient to receive Zyprexa despite nothing by mouth status. 17. Acute urinary tract infection. Continue meropenem 1 g IV piggyback every 8 hours. 18. Valvular heart disease with [id number] mitral regurgitation, mi [id number] tricuspid regurgitation and mild to moderate pulmonary hypertension. 19. Hypernatremia. Monitor 20. Sinus tachycardia and atrial fibrillation, paroxysmal. Continue metoprolol 21. Metabolic encephalopathy secondary to acute kidney injury, hyponatremia, incarcerated ventral hernia, Covid 19, UTI. MRI of the brain negative for acute findings. 22. Severe protein calorie malnutrition. Patient has been started on TPN. 23. Acute hypoxic respiratory failure requiring BiPAP. Dr. Staton is managing. Continue oxygen therapy. 24. SIRS with tachycardia and leukocytosis. Continue current treatment. CODE STATUS: Full code Guarded prognosis. Discharge Plan: Return to [facility] once stable. Impression and plan of care have been directed as dictated by the signing physi raji. Caitlin Francis nurse practitioner acting as scribe for signing physician.
[2020-05-04 17:18] LABS: Glucose,Whole Blood 172 mg/dL (75-99)
[2020-05-04] MEDS: FAT EMULSION 20% 250 ML in EMPTY BAG 1 BAG IV SCH (21:45)
[2020-05-04] MEDS: OLANZapine 7.5 MG TAB PO SCH (21:59)
[2020-05-04] MEDS: AMMONIUM LACTATE 12% LOTION 225 GM BTL TOPICAL SCH (22:02)
[2020-05-05 00:12] LABS: Glucose,Whole Blood 173 mg/dL (75-99)
[2020-05-05] MEDS: INSULIN ASPART (NovoLOG) 100 UNIT/ML VIAL SQ SCH ×5 (00:13→23:47)
[2020-05-05] MEDS: metroNIDAZOLE-NS PMX 500 MG in SALINE 1 100ML.BAG IVPB SCH ×4 (00:13→23:25)
[2020-05-05] MEDS: HYDROmorphone 1 MG/ML 1 ML SYRINGE IVP PRN ×5 (01:21→23:25)
[2020-05-05 04:27] LABS: Basophils # (A) 0.1 k/uL (0-0.2); Basophils % (A) 0 %; Eosinophils # (A) 0.2 k/uL (0-0.7); Eosinophils % (A) 2 %; HCT 29.4 % (34.0-46.0); Hypochromasia Moderate; Lymphocytes # (A) 0.7 k/uL (1.0-4.8); Lymphocytes % (A) 6 %; MCH 31.5 pg (25.0-35.0); MCHC 31.3 g/dL (31.0-37.0); MCV 100.7 fL (80.0-100.0); Mean Platelet Volume 8.2; Monocytes # (A) 0.6 k/uL (0-1.0); Monocytes % (A) 5 %; Neutrophils # (A) 10.7 k/uL (1.3-7.7); Neutrophils % (A) 86 %; Platelet Count 213 k/uL (150-450); RBC 2.92 m/uL (3.80-5.40); RDW 13.1 % (11.5-15.5); WBC 12.4 k/uL (3.8-10.6)
[2020-05-05 04:29] LABS: HGB 9.2 gm/dL (11.4-16.0)
[2020-05-05 04:38] LABS: Albumin 2.4 g/dL (3.5-5.0); Calcium 8.2 mg/dL (8.4-10.2); Magnesium 1.9 mg/dL (1.6-2.3); Phosphorus 3.5 mg/dL (2.5-4.5); Potassium 3.8 mmol/L (3.5-5.1); Total Bilirubin 0.3 mg/dL (0.2-1.3); Total Protein 5.4 g/dL (6.3-8.2)
[2020-05-05] MEDS: POTASSIUM CHLORIDE 10 MEQ in WATER FOR INJECTION 1 100ML.BAG IVPB SCH ×2 (05:12→06:34)
[2020-05-05 06:01] LABS: Glucose,Whole Blood 176 mg/dL (75-99)
[2020-05-05] MEDS: ALBUTEROL HFA INHALER INHALATION PRN ×2 (07:35→10:45)
--- NOTE | 2020-05-05 08:02 | XR ---
EXAMINATION TYPE: XR chest 1V portable DATE OF EXAM: 05/05/2020 Comparison: 05/04/2020 Clinical History: 85-year-old female follow-up COVID Findings: Exam limited due to markedly diminished lung volumes. Left PICC tip is obscured by the midthoracic ve rtebroplasty change. Severely kyphotic positioning. Right heart margin is largely obscured. Interstit ial opacities persist throughout with patchy changes in the right hilar and right basilar regions. Ol d left-sided rib fracture 4 minutes. Impression: Very limited exam due to severe kyphotic positioning and hypoventilatory changes. Bilateral interstit ial infiltrates as well as patchy right hilar and right basilar opacities persist. The tip of the lef t-sided PICC line is obscured.
--- NOTE | 2020-05-05 10:37 | P.PN ---
Subjective Progress Note Date: 05/05/20 This is an 85-year-old female patient who underwent repair of parastomal hernia. The patient has history of rectal cancer and she has undergone a low AP resection with colostomy and the patient came into the hospital because of significant abdominal pain as well as constipation over the past 2 days as the patient resides at [facility] on the [place]. She was given Dulcolax suppositories through the stoma and she was also started on lactulose 30 g twice a day and she continued to complain of increased abdominal pain and distention and she was not able to have any bowel movements with the stoma. X-ray showed nonobstructive gas pattern and significant stool buildup and the patient was having increased amount of pain along with nausea and she was unable to drink and eat. At that point, a CAT scan of the abdomen was done that showed large right-sided abdominal wall ventral hernia that contained multiple loops of small bowel measuring about 6 x 12 cm in size and the opening was 5.5 cm and the small bowel measuring up to 3.5 cm in diameter and there was incarceration and some mild dilated loops of small bowel consistent with a partial mechanical obstruction related to the hernia. Note that the patient was taken to the operating room today. Preoperatively, she was having some encephalopathy and she seemed to be gradually improving with conservative management. He was taken to the OR and s he underwent exploratory laparotomy, repair of a parastomal hernia, lysis of adhesions, partial colectomy and repair of an incisional hernia and partial omentectomy. The estimated blood loss was only 100 mL. The previously inserted tachycardia colostomy was transected and it was replaced on the other side in the left upper quadrant. Postextubation, the patient some increased difficulty breathing. She was kept on a BiPAP at a pressure of 12/60 to me as of water and FiO2 of 50% and currently she is in the intensive care unit. Chest x-ray and blood gases are still pending. The patient was quite obtunded at a time of arrival and she is gradually recovering her level of consciousness for now. She is currently on IV fluids with normal state rate of 50 mL an hour. She is also taking a combination of Flagyl and meropenem as broad-spectrum antibiotics patient on Lovenox 40 mg subcu for DVT prophylaxis. Blood work from this morning showed a hemoglobin of 11.3 with a white cell count of 8.7. Function is stable with a creatinine of 0.7. The patient's albumin was down to 2.5 with a total protein of 5.5. SGPT and SGOT l within normal limits. On 05/01/2020 patient seen in follow-up in the intensive care unit, today is postoperative day #1, status post exploratory laparotomy, parastomal hernia repair, lysis of adhesions, partial colectomy, partial omentectomy, and repair of incisional hernia. This morning patient is awake, however she is encephalopathic, she is slow to respond, but does not appear to be in any acute distress other than some postoperative tenderness in her abdomen with light palpation, she is on 4 L of supplemental oxygen her pulse ox is 100%, she is breathing comfortably, she has been afebrile overnight, hemodynamically she is stable, she is on 0.9 normal saline at a rate of 100 ML per hour, no vasopressor support. Today's chest x-ray has been reviewed showing low lung volumes and mild cardiomegaly with small bilateral pleural effusions and multifocal right greater than left acute infiltrates and/or atelectasis. She is on Flagyl for antibiotic coverage, she's been afebrile overnight. Her incisions clean dry and intact, covered with surgical dressing, left lower quadrant colostomy is in place, with no gas or stool output in its. Patient has been nothing by mouth. Patient having 100% on 4 L, however she is frequently sleepy, she did wear BiPAP for several hours last night. Urine culture is positive for Providentia stuartii and Proteus mirabilis. There are hypoactive bowel sounds present. Lung sounds are positive for diminished breath sounds with scattered rales. Skin clean dry and warm, palpable distal pulses On 05/02/2020 patient seen in follow-up in the intensive care unit, she is lethargic, confused, but arousable, she is answering simple questions, mostly moans when her abdomen is touched, she has diffuse tenderness in her abdomen, particularly in the right upper quadrant, and around the site of the previous colostomy. The abdomen is nonrigid, it is relatively soft however patient is very tender with any palpation, her left lower quadrant colostomy has not produced any gas or stool yet, there are hypoactive bowel sounds in the upper quadrants. No nausea or vomiting, she had been BiPAP on and off through the day yesterday, she is currently on oxygen her pulse ox the 100%, hemodynamically she stable, not on any vasopressor support, she is on TPN at 30 ML per hour and maintenance IV fluids point and was sitting at a rate of 100 ML per hour, no other drips, she's been afebrile, she is sinus mechanism, slightly tachycardic at times, with a rate of 98-100 bpm, blood pressure is been stable, patient is generally swallowing, she is a positive fluid balance, she is +1095 mL over last 24 hours, and +2.2 L the day before. Has been nothing by mouth. Yesterday patient received a couple doses of IV Lasix, low urine output, producing 20-40 mL of urine output per hour. Remains on Flagyl for antibiotic coverage. Lungs reveal diminished breath sounds at the bases, today's chest x-ray shows hypoventilatory changes, interstitial and patchy airspace infiltrates. The patient is seen today 05/03/2020 in follow-up in the intensive care unit. She is opening her eyes spontaneously. She is answering yes no questions. Following some simple commands. Mostly moaning. He is receiving pain medications. She is maintaining O2 saturations up to 100% on 4 L/m per nasal cannula. Less tachycardic. Afebrile. Urine culture positive for low Providencia stuartii, Proteus mirabilis. White count 20.2. Hemoglobin 10.1. Sodium 137. Potassium 4.0. Creatinine 0.75. She is being nourished with TPN and lipids. Lovenox for DVT prophylaxis. Remains on IV Lasix. Antibiotics in the form of meropenem. On Flagyl. Chest x-ray revealing some bibasilar atelectasis. The patient is seen today 05/04/2020 in follow-up in the intensive care unit. She remains quite lethargic. She is mainly moaning. She does open her eyes to verbal stimuli. She is answering some yes, no questions. Moving all 4 extremities. Maintaining O2 saturations in the mid 90s on 3 L/m per nasal cannula. She's afebrile. Remains tachycardic. Abdomen slightly distended. Minimal output from the ostomy just a few trickles of clearish fluid. Incisions are slightly red. Abdomen is tender to palpation. She remains nothing by mouth. Chest x-rays revealing progressive infiltrates throughout the right lung with a small effusion. Mild patchy density in the left lower lobe. Urine culture positive for Providencia stuartii, Proteus mirabilis. She is continued on meropenem and Flagyl. She has 2+ lower extremity edema. Remains on IV diuretics daily. 05/05/2020, the patient was taken off the BiPAP and the patient is currently on room air oxygen and her pulse ox is around 98%. She continues to moaning. At times, she follows some simple commands. She continues to be edematous in all 4 extremities especially in the legs pH is receiving Lasix 40 mg every 12 hours. Yesterday, she briefly had to be placed on BiPAP which was taken up this morning. On today's chest x-ray, there is some mild four-vessel congestion. The right hemidiaphragm is slightly elevated and there is some atelectatic change in the right lung. Otherwise, the lungs are well aerated. The colostomy site is putting out minimal amount of liquid. I don't think there is enough bowel activity yet. Surgical wound site is dry clean and intact. Bowel sounds remain hypoactive. Abdomen remains slightly distended. We haven't. The patient yet. She is currently on TPN for nutritional support which will be continued. I discussed the case with general surgery. A flat film of the abdomen was also obtained. I think there is an obvious component of ileus which is preventing this patient from having Objective - Vital Signs Vital signs: Vital Signs Temp 99.0 F 05/05/20 04:00 Pulse 111 H 05/05/20 07:00 Resp 30 H 05/05/20 07:00 BP 141/64 05/05/20 07:00 Pulse Ox 98 05/05/20 07:00 Intake & Output 05/04/20 05/05/20 05/05/20 18:59 06:59 18:59 Intake Total 1120 1419 81 Output Total 1215 1595 50 Balance -95 -176 31 Weight 67.5 kg 68.1 kg Intake: IV 1120 570 Meropenem 1 gm In Sodium 100 100 Chloride 0.9% 100 ml @ 33 .3 mls/hr IVPB Q12HR [facility] Rx#:[id number] Mvi, Adult No.4 with Vit 720 60 K 10 ml Trace (Conc-1Ml/ Dose) 1 ml In Amino Acid 5%-D20w+Lytes*E* 1,000 ml @ 60 mls/hr IV .[id number] [facility] Rx#:[id number] Potassium Chloride 10 meq 200 In Water For Injection 1 100ml.bag @ 100 mls/hr IVPB Q1H [facility] Rx#: [id number] Sodium Chloride 0.9% 1, 100 110 000 ml @ 20 mls/hr IV . Q24H [facility] Rx#:[id number] metroNIDAZOLE-NS PMX 500 200 100 mg In Saline 1 100ml.bag @ 100 mls/hr IVPB Q8HR [facility] Rx#:[id number] TPN/PPN 660 60 Mvi, Adult No.4 with Vit 660 60 K 10 ml Trace (Conc-1Ml/ Dose) 1 ml In Amino Acid 5%-D20w+Lytes*E* 1,000 ml @ 60 mls/hr IV .[id number] [facility] Rx#:[id number] Lipid 189 21 Fat Emulsion 20% 250 ml 189 21 In Empty Bag 1 bag @ 21 mls/hr IV MoWeFr [facility] Rx#: [id number] Output: Urine 1215 1595 50 Other: Voiding Method Indwelling Catheter Indwelling Catheter - Exam GENERAL EXAM: Somnolent, but arousable, 85-year-old female patient on RA oxygen with a pulse ox of 98% comfortable in no apparent distress. HEAD: Normocephalic/atraumatic. EYES: Normal reaction of pupils, equal size. Conjunctiva pink, sclera white. NOSE: Clear with pink turbinates. THROAT: No erythema or exudates. NECK: No masses, no JVD, no thyroid enlargement, no adenopathy. CHEST: No chest wall deformity. Symmetrical expansion. LUNGS: Equal air entry with crackles, rhonchi bibasilar, right greater than left CVS: Regular rate and rhythm, normal S1 and S2, no gallops, no murmurs, no rubs ABDOMEN: Soft, nonrigid, tender to light palpation mid abdominal incision is clean dry and intact, left lower quadrant colostomy with no gas or stool. No hepatosplenomegaly, normal bowel sounds, no guarding or rigidity. EXTREMITIES: No clubbing, diffuse generalized swelling, no cyanosis, 2+ pulses and upper and lower extremities. MUSCULOSKELETAL: Muscle strength and tone normal. SPINE: No scoliosis or deformity SKIN: No rashes CENTRAL NERVOUS SYSTEM: Sleepy, but arousable, confused. No focal deficits, tone is normal in all 4 extremities. The patient opens her eyes spontaneously and the patient moans. - Labs CBC & Chem 7: 05/05/20 03:31 05/05/20 03:31 Labs: Abnormal Lab Results - Last 24 Hours (Table) 05/04/20 05/04/20 05/05/20 Range/Units 11:14 17:16 00:10 WBC (3.8-10.6) k/uL RBC (3.80-5.40) m/uL Hgb (11.4-16.0) gm/dL Hct (34.0-46.0) % MCV (80.0-100.0) fL Neutrophils # (1.3-7.7) k/uL Lymphocytes # (1.0-4.8) k/uL Carbon Dioxide (22-30) mmol/L BUN (7-17) mg/dL Glucose (74-99) mg/dL POC Glucose (mg/dL) 174 H 172 H 173 H (75-99) mg/dL Calcium (8.4-10.2) mg/dL Total Protein (6.3-8.2) g/dL Albumin (3.5-5.0) g/dL 05/05/20 05/05/20 05/05/20 Range/Units 03:31 03:31 06:00 WBC 12.4 H (3.8-10.6) k/uL RBC 2.92 L (3.80-5.40) m/uL Hgb 9.2 L D (11.4-16.0) gm/dL Hct 29.4 L (34.0-46.0) % MCV 100.7 H (80.0-100.0) fL Neutrophils # 10.7 H (1.3-7.7) k/uL Lymphocytes # 0.7 L (1.0-4.8) k/uL Carbon Dioxide 32 H (22-30) mmol/L BUN 41 H (7-17) mg/dL Glucose 137 H (74-99) mg/dL POC Glucose (mg/dL) 176 H (75-99) mg/dL Calcium 8.2 L (8.4-10.2) mg/dL Total Protein 5.4 L (6.3-8.2) g/dL Albumin 2.4 L (3.5-5.0) g/dL Assessment and Plan Plan: 1 exploratory laparotomy, repair of a parastomal hernia and lysis of adhesions with partial colectomy and repair of an incisional hernia and partial omentectomy. The patient is postop day #5. Surgery was done for incarcerated bowel within the large parastomal hernia. The patient may have an underlying ileus. The patient has not shown any adequate bowel function since surgery. Minimal liquidy material within the colostomy bag for now. Abdomen is slightly distended. Surgical wound site is dry clean and intact. The patient is nothing by mouth. The patient is receiving TPN for nutritional support. Hemodynamically stable. Currently on room air oxygen. 2 acute hypoxic respiratory failure, post abdominal surgery my improved and the patient is currently on room air oxygen. Chest x-ray from today was noted. 3 Altered mentation, consider metabolic encephalopathy , the patient continues to have waxing and waning mentation 4 acute kidney injury, improving and the patient is receiving fluid and the creatinine is normalized 5 metabolic encephalopathy secondary to above with altered mentation 6 chronic stage II kidney disease, renal function is normalized with fluids 7 coronary artery disease 8 history of diastolic heart failure with an ejection fraction of 50% 8 hypertension 9 Sjogren syndrome 10 chronic anemia 11 chronic pain syndrome 12 overactive bladder 13 vascular dementia 14 history of rectal cancer post low AP resection and the patient had a colostomy, details discussed above 15 valvular heart disease with mild to moderate MR and TR and mild to moderate pulmonary hypertension 16 atrial fibrillation currently on a Cardizem drip at 10 mg an hour, rate is controlled for now Plan Obtain a flat film of the abdomen Keep the patient nothing by mouth for now Continue TPN for nutritional support Lasix 40 mg every 12 hours Continue same antibiotic coverage includes a combination of Merrem and Flagyl The patient is a negative fluid balance for today. Electrolytes are stable Discussed the case with general surgery We'll continue watchful waiting regarding recovery and some bowel activity Lovenox 40 mg subcu for DVT prophylaxis Hold oral medications for now We'll continue to follow
[2020-05-05] MEDS: ESCITALOPRAM 10 MG TAB PO SCH (10:40)
[2020-05-05] MEDS: METOPROLOL SUCCINATE (ER) 25 MG TAB.ER.24H PO SCH ×2 (10:40→20:08)
[2020-05-05] MEDS: SODIUM BICARBONATE TAB 650 MG TAB PO SCH ×3 (10:40→20:09)
[2020-05-05] MEDS: ENOXAPARIN 40 MG/0.4 ML SYRINGE SQ SCH (10:51)
[2020-05-05] MEDS: MEROPENEM 1 GM in SODIUM CHLORIDE 0.9% 100 ML IVPB SCH ×2 (10:51→20:08)
[2020-05-05] MEDS: PANTOPRAZOLE 40 MG/10 ML VIAL IVP SCH (10:51)
[2020-05-05] MEDS: hydrALAZINE HCL 20 MG/ML 1 ML VIAL IVP PRN (10:51)
[2020-05-05] MEDS: FUROSEMIDE 10 MG/ML 4 ML VIAL IV SCH ×2 (10:51→20:08)
--- NOTE | 2020-05-05 11:31 | P.PN ---
Progress Note - Text Progress Note Date: 05/05/20 Patient's currently on BiPAP. She denies any significant abdominal pain. On exam her vital signs appear stable. Abdomen soft. There is no significant output through the colostomy. Postoperative ileus. Patient he received supportive care.
[2020-05-05] MEDS ORDERED: DILTIAZEM DRIP BOLUS FROM BAG 1 MG SOLN IV ONE (11:56)
[2020-05-05] MEDS: DILTIAZEM 125 MG in SODIUM CHLORIDE 0.9% 100 ML IV SCH ×2 (12:16→20:30)
[2020-05-05] MEDS: cycloSPORINE 0.05% OPHTH 0.4 ML DROPERETTE BOTH EYES SCH ×2 (12:28→20:09)
[2020-05-05 13:45] LABS: Glucose,Whole Blood 214 mg/dL (75-99)
[2020-05-05] MEDS: MVI, ADULT NO.4 WITH VIT K 10 ML, TRACE (CONC-1ML/DOSE) 1 ML in AMINO ACID 5%-D20W+LYTE... IV SCH ×3 (13:50)
--- NOTE | 2020-05-05 14:32 | P.PN ---
Subjective Progress Note Date: 05/05/20 This is an 85-year-old female patient of Dr. Garcia and Dr. Pulido with past medical history of asthma, CAD with ischemic cardiomyopathy, previous history of lung cancer post resection who is known to have severe lower back pain, history of Klebsiella pneumoniae ESBL urinary tract infection, memory impairment, rectal cancer post low anterior resection with colostomy placement and she has had her stoma moved from one side to the other times to with significant peristomal hernia, patient developed to have a significant abdominal pain as well as constipation over the last few days at [facility] at that time she was given a Dulcolax suppository through the stoma and she was started on lactulose 30 g orally twice every day patient has been complaining of increased abdominal pain and distention not able to have a good BM through the stoma, an x-ray was done over there and that showed nonobstructive gas pattern with significant stool buildup, patient today was having increased amount of pain associated with nausea and not able to eat or drink she was dehydrated as well has not been eating much over the last few days, she was directed to go to the emergency department at [facility] where she was found to have an acute kidney injury as well a hyperkalemia, patient underwent CT abdomen and pelvis without contrast that showed a large right side abdominal wall ventral hernia that contains multiple loops of the small bowel hernia measures about 612 cm the opening is 5.5 cm the small bowel measures up to 3.5 cm in diameter there was incarcerated in and some mildly dilated loops of small bowel consistent with partial mechanical obstruction related to the hernia, patient was started on IV fluid as well as IV antibiotic, and surgical consultation was obtained from and had a long conversation with the emergency room physician on the complexity of the case and if the patient is not a candidate for any surgical intervention at [facility] she will need to be transferred to [facility], this was discussed with her over the phone. 04/21: Patient sitting up in bed in no apparent distress, she appears to be a bit short of breath, her IV fluids were decreased to 75 mL an hour, we'll monitor her input and output and daily weight, she was seen in consultation by cardiology in preparation for surgical intervention will be planned for tomorrow morning, I spoke general surgery and they feel that the patient can the served here for a better quality of life, and there is no need for the patient be transferred to a tertiary care center, cardiology consultation was obtained, echocardiogram will be done, EKG was done also continue beta gume in the form of metoprolol 25 mg orally twice every day, monitor the patient very closely at this time hold off ANGELICA inhibitor due to her kidney function, nephrology seen the patient as well and she seems to be doing better. 04/22: Patient is laying down in bed in minimal respiratory distress, she did receive 40 mg Lasix earlier today because of expiratory wheezes and increased shortness of breath, portable chest x-ray and abdominal x-ray was obtained, we will hold off any surgery at this time until obtaining the result of the x-ray patient does have a good stool output and her stoma at this time, echo care gram still pending at the time of dictation, I believe the patient needs to be monitored for another 24 hours before any surgical intervention. 04/23: Patient known to have mental status changes. CAT scan of the brain ordered which revealed only chronic age-related changes with chronic small vessel ischemia. CTA of the chest done yesterday revealed no pulmonary embolism. T here is new bilateral pleural effusions and pulmonary infiltrates and atelectasis. Heart appeared increased in size with probable congestive heart failure. Large pulmonary arteries consistent with pulmonary hypertension unchanged. Multiple old thoracic compression fractures. New compression frac ture of T4. Patient is afebrile, heart rate 114, blood pressure 182/87, pulse ox 92% on room air. CBC 14.7, hemoglobin 12. Sodium 143, potassium 3.8, chloride 110, CO2 16, BUN 21 and creatinine 0.86. Urine culture is positive for Providencia stuartii. Rocephin will be discontinued and patient started on meropenem 1 g IV piggyback every 8 hours. Echocardiogram reveals EF of 55-60% with mild concentric left ventricular hypertrophy, mild to moderate mitral regurgitation, [id number] tricuspid regurgitation, mild to moderate pulmonary hypertension. 2: Patient continues to have increased confusion and noted to have difficulty swallowing. Speech therapy has evaluated with recommendations. Consult has also been added for neurology for dysphagia. Medications reviewed and patient r esumed on Zyprexa and Lexapro. Patient is afebrile, heart rate 89, blood pressure 160/70, pulse ox 97% on 2 L nasal cannula. There is slight and there is a slight rise in her leukocytosis of 15.7. Hemoglobin is 11. Sodium is 148 potassium 3.2, chloride 113, CO2 20, BUN 25 and creatinine 1.12. IV fluids transition to dextrose 5% at 60 mL/h. Cardiology ordered Cardizem drip for episode of atrial fibrillation. She is continued on IV antibiotics with meropenem and Flagyl. Patient's will be contacted via phone and updated. Patient is not stable at this time for surgical intervention. 2: Patient has been seen by neurology for metabolic encephalopathy. X-ray of the chest reveals improving left lower lobe infiltrate, scattered infiltrates still present bilaterally. Prominence of the heart and pulmonary vasculature. Correlate for heart failure, atypical pulmonary edema could be considered, atypical pneumonia is within differential. Sodium 147, potassium 3.5, chloride 113, BUN 26 and creatinine 1.05. Ammonia level less than 9. TSH 0.490. Nephrology has continued D5W. Patient is unresponsive to questions, not verbalizing, staring blankly. is at bedside. Discussed CODE STATUS with the patient's and he is unable to make a decision at this time oth er than to keep her full code. MRI of the brain ordered to rule out brainstem infarct. General surgery continues to follow for the large parastomal hernia with incarceration, to be done if patient is medically stable. 2: MRI of the brain reveals age-related atrophy with confluence chronic appea ring. Ventricular white matter ischemic type changes. EEG is abnormal with moderate to severe encephalopathy. Patient apparently said yes and no to the nurse today. There's been no seizure activity noted. Patient is eating less than 25% of her meals. IV fluids been increased to 100 mL per hour per nephrology. WBC 20.9, hemoglobin 11.2. Sodium 147, potassium 3.7, chloride 115, CO2 25, BUN 23 and creatinine 0.75. Blood sugar 123. 25: Patient's mental status is improving, she is more awake and alert today, able to answer questions. Speech therapy has evaluated and plan to start trials of diet. Ostomy is functioning. Sodium level is better today at 146. Potassium is 3.7, chloride 114, CO2 25, BUN 23 and creatinine 0.81. She is still on Cardizem drip for atrial fibrillation. She is been afebrile, heart rate in the 80s, blood pressure 130/61, pulse ox 90% on 1 L nasal cannula. Patient continues on D5W at 100 mL per hour. 04/30: Patient is awake and alert. Mental status is much improved. She is scheduled for surgery today with Dr. Falcon. Patient's is at bedside. She has been afebrile, heart rate 75, blood pressure 144/76, pulse ox 90% on room air. WBC 8.7, hemoglobin 11.3. Sodium 136 otherwise electrolytes renal function are normal. Liver function tests are normal. Air in the ostomy bag. No stool at this point. Baez catheter draining clear tobin urine. 05/01: Patient remains in the intensive care unit on BiPAP. Patient is able states she feels better from yesterday. She is status post exploratory laparotomy, parastomal hernia repair, lysis of adhesions, partial colectomy, partial omentectomy, and repair of incisional hernia, postop day #1 patient appears to be comfortable at rest. Pulse ox is 100% on BiPAP. She has been afebrile, heart rate 89, blood pressure 125/72. W BC 17.8, hemoglobin 12. Sodium 136, potassium 4.3, chloride 107, CO2 21, BUN 14 and creatinine 0.78. Liver function tests normal. Patient is known to have generalized edema. Patient was given 1 dose of IV Lasix this morning and we will plan to repeat that this afternoon. Patient is continued on IV Flagyl. 05/02: Patient remains in the intensive care unit. Currently on BiPAP with 50% FiO2 with a pulse ox of 100%. She's been afebrile, heart rate 87, blood pres sure 122/52. Abdominal x-ray shows nonobstructive gas pattern. Chest x-ray this morning reveals marked hypo-ventilation changes. Worsening interstitial changes and patchy airspace infiltrates. WBC 27.8, hemoglobin 10.3, platelet count 222. Electrolytes and renal function are normal. Blood sugars are running in the 140s. Patient is complaining of significant pain. Dilaudid and morphine dosing has been adjusted. Patient is known to have difficulty with both medications with mental status changes. Blood no the patient does well with Percocet and will order 7.5 one every 6 hours as needed. Stoma is slightly dusky in color. The old ostomy site has erythema and warmth. Patient has no output from ostomy. Patient was started on TPN today and fluids discontinued. Due to generalized edema and anasarca, IV Lasix 40 mg daily ordered. Patient had good urine output yesterday after IV Lasix. Output is currently 10-15 mL per hour. 05/03: Patient remains in intensive care unit. She is still not had output from her colostomy. She is complaining of significant pain. We did add in the Percocet to be given orally. We will also ask the nurse to give Zyprexa as scheduled otherwise patient will have difficulty with mental status changes/psychosis. She remains nothing by mouth and has been started on TPN. Patient is able to follow simple commands and answer yes and no questions but meds patient is not at her baseline. She has been afebrile, WBC 20.2, hemoglobin 10.1, sodium 137, potassium 4, creatinine 0.75. Heart rate is running in the low 100s, she is been afebrile, blood pressure 164/70, pulse ox 99% on 2 L. 05/04: Patient remains in the intensive care unit. The patient is placed on BiPAP pulse ox 100% with 50% FiO2. She continues to have difficulty with pain control. TPN is in place. Lasix was increased today to 40 milligrams IV every 12 hours. Repeat Covid has been ordered. Chest x-ray reveals progressive infiltrates throughout the right lung with small effusions. Mild patchy density left lower lobe. Patient has not had any output from colostomy. Stoma is still dusky. Prognosis is guarded. 05/05: Patient is in intensive care unit, she continues to moan and groan, she has been getting IV pain management, she has been receiving TPN, so far no out put of her stoma, patient is maintained on meropenem as well as metronidazole, patient developed atrial fibrillation with rapid ventricular response she was started on Cardizem drip, cardiology consultation, so the patient on heparin drip, and there is no Indication by general surgery, to avoid from embolic disease, we will update the family about her current progress. Objective - Vital Signs Vital signs: Vital Signs Temp 98.3 F 05/05/20 08:00 Pulse 117 H 05/05/20 11:00 Resp 38 H 05/05/20 11:00 BP 168/66 02/13/21 11:00 Pulse Ox 94 L 05/05/20 11:00 Intake & Output 05/04/20 05/05/20 05/05/20 18:59 06:59 18:59 Intake Total 1120 1419 681 Output Total 1215 1595 650 Balance -95 -176 31 Weight 67.5 kg 68.1 kg Intake: IV 1120 570 600 Meropenem 1 gm In Sodium 100 100 100 Chloride 0.9% 100 ml @ 33 .3 mls/hr IVPB Q12HR [facility] Rx#:[id number] Mvi, Adult No.4 with Vit 720 60 300 K 10 ml Trace (Conc-1Ml/ Dose) 1 ml In Amino Acid 5%-D20w+Lytes*E* 1,000 ml @ 60 mls/hr IV .[id number] [facility] Rx#:[id number] Potassium Chloride 10 meq 200 In Water For Injection 1 100ml.bag @ 100 mls/hr IVPB Q1H [facility] Rx#: [id number] Sodium Chloride 0.9% 1, 100 110 100 000 ml @ 20 mls/hr IV . Q24H [facility] Rx#:[id number] metroNIDAZOLE-NS PMX 500 200 100 100 mg In Saline 1 100ml.bag @ 100 mls/hr IVPB Q8HR [facility] Rx#:[id number] TPN/PPN 660 60 Mvi, Adult No.4 with Vit 660 60 K 10 ml Trace (Conc-1Ml/ Dose) 1 ml In Amino Acid 5%-D20w+Lytes*E* 1,000 ml @ 60 mls/hr IV .[id number] [facility] Rx#:[id number] Lipid 189 21 Fat Emulsion 20% 250 ml 189 21 In Empty Bag 1 bag @ 21 mls/hr IV MoWeFr [facility] Rx#: [id number] Output: Urine 1215 1595 650 Other: Voiding Method Indwelling Catheter Indwelling Catheter - Exam Exam Review of Systems Constitutional: Reports anorexia, Reports fatigue, denies lethargy, Reports malaise, Reports weakness, Reports weight loss. Complains of significant pain. Eyes: denies blurred vision, denies bulging eye, denies decreased vision Ears: bilateral: decreased hearing Ears, nose, mouth and throat: Denies dysphagia, Denies neck lump, Denies sore throat Cardiovascular: Denies chest pain, Denies decreased exercise tolerance, Denies dyspnea on exertion, Denies lightheadedness, Denies rapid heart beat, Denies shortness of breath, Denies syncope Respiratory: Denies congestion, Denies cough with sputum, Denies home oxygen, Denies sleep apnea, Denies snoring, Denies wheezing Gastrointestinal: Reports abdominal pain worsening, Reports bloating, Reports constipation, Reports early satiety, Reports loss of appetite, Reports nausea, Reports vomiting Genitourinary: Denies dysuria, Denies nocturia Menstruation: Reports postmenopausal Musculoskeletal: Reports atrophy, Reports frequent falls, Reports gait dysfunction, Reports loss of height, Reports low back pain, Reports muscle weakness Musculoskeletal: absent: ankle pain, ankle stiffness, ankle swelling, elbow pain, elbow stiffness, elbow swelling, foot pain, foot stiffness, foot swelling, hand pain, hand stiffness, hand swelling, hip pain, hip stiffness, hip swelling, knee pain, knee stiffness, knee swelling, shoulder pain, shoulder stiffness, shoulder swelling, wrist pain, wrist stiffness, wrist swelling Integumentary: Denies pruritus, Denies rash Neurological: Reports balance difficulties, Reports gait dysfunction, Reports weakness, reported mental status changes Psychiatric: Denies anxiety, Denies depression Physical examination HEENT: Head is atraumatic, normocephalic, pupils were equal round reactive to light and accommodation, extraocular muscle movement were intact, sclera nonicteric conjunctiva are pale, mucous membranes of mouth are dry. Neck: Supple, no JVD, decreased carotid upstroke bilaterally. Chest: There is significant kyphosis present, decreased breath sounds at the bases, few rhonchi, no expiratory wheezes, no chest wall tenderness, no intercostal retractions. Heart: First heart sound is depressed, second heart sounds normal, there is systolic ejection murmur 2/6 located in the left border, irregularly irregular due to atrial fibrillation, tachycardic. Abdomen: Soft and moderate tenderness generalized, stoma to the left of midline is slightly dusky. Old stoma site has erythema and warmth. Stoma bag is empty. Positive drainage from both surgical sites. Extremities: There is +3 edema, no calf tenderness, dorsalis pedis +1 bilaterally,, patient continues to be in positive balance. Neurologic examination: Patient is awake and alert oriented to person, able to answer questions and follow simple commands. Patient appears to be quite uncomfortable. - Labs CBC & Chem 7: 05/05/20 03:31 05/05/20 03:31 Labs: Abnormal Lab Results - Last 24 Hours (Table) 05/04/20 05/05/20 05/05/20 Range/Units 17:16 00:10 03:31 WBC (3.8-10.6) k/uL RBC (3.80-5.40) m/uL Hgb (11.4-16.0) gm/dL Hct (34.0-46.0) % MCV (80.0-100.0) fL Neutrophils # (1.3-7.7) k/uL Lymphocytes # (1.0-4.8) k/uL Carbon Dioxide 32 H (22-30) mmol/L BUN 41 H (7-17) mg/dL Glucose 137 H (74-99) mg/dL POC Glucose (mg/dL) 172 H 173 H (75-99) mg/dL Calcium 8.2 L (8.4-10.2) mg/dL Total Protein 5.4 L (6.3-8.2) g/dL Albumin 2.4 L (3.5-5.0) g/dL 05/05/20 05/05/20 Range/Units 03:31 06:00 WBC 12.4 H (3.8-10.6) k/uL RBC 2.92 L (3.80-5.40) m/uL Hgb 9.2 L D (11.4-16.0) gm/dL Hct 29.4 L (34.0-46.0) % MCV 100.7 H (80.0-100.0) fL Neutrophils # 10.7 H (1.3-7.7) k/uL Lymphocytes # 0.7 L (1.0-4.8) k/uL Carbon Dioxide (22-30) mmol/L BUN (7-17) mg/dL Glucose (74-99) mg/dL POC Glucose (mg/dL) 176 H (75-99) mg/dL Calcium (8.4-10.2) mg/dL Total Protein (6.3-8.2) g/dL Albumin (3.5-5.0) g/dL Assessment and Plan Assessment: Assessment and Plan Plan: 1. Large right lateral abdominal wall hernia with incarceration status post repair of parastomal hernia, lysis of adhesions, partial colectomy, repair of incisional hernia, partial omentectomy. Continue to monitor input and output and daily weight, pain control, this is a high-risk patient, continue meropenem 1 g IV piggyback every 8 hours, continue current pain management with Percocet if possible, monitor the patient respiratory status. 2. Acute kidney injury due to poor oral intake of fluid and acute tubular necrosis. Recovered, monitor input and output and daily weight, check the patient CMP tomorrow morning. 3. Hyperkalemia likely related to acute kidney injury. Continue to monitor 4. Metabolic encephalopathy secondary to acute kidney injury as well as incarcerated large ventral hernia. Continue continue IV antibiotic, monitor the patient very closely. 5. Chronic kidney failure CKD stage II currently with acute kidney injury continue IV fluid resuscitation repeat CMP tomorrow morning. 6. CAD and non-ischemic cardiomyopathy and chronic diastolic heart failure with ejection fraction of 50%. We will maintain the patient on metoprolol 7. Hypertension and hypertensive cardiovascular disease. Continue IV hydralazine as needed. 8. Sjogren syndrome. We'll hold off Salagen 9. Anemia of chronic medical illnesses. Continue to monitor the patient's CBC 10. Chronic pain syndrome. Continue Percocet if patient is able to take oral pain medicine.. 11. Overactive bladder. Discontinue Detrol. 12. 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 13. History of rectal cancer post-low anterior resection with colostomy placement . 14. DVT prophylaxis. Start the patient on Lovenox 40 mg subcutaneously every 24 hours. 15. GI prophylaxis. Protonix 40 mg IV push every 24 hours. 16. Recurrent depression. Continue Zyprexa and Lexapro. Patient to receive Zyprexa despite nothing by mouth status. 17. Acute urinary tract infection. Continue meropenem 1 g IV piggyback every 8 hours. 18. Valvular heart disease with [id number] mitral regurgitation, [id number] tricuspid regurgitation and mild to moderate pulmonary hypertension. 19. Hypernatremia. Monitor 20. paroxysmal atrial fibrillation currently with rapid ventricular response continue Cardizem drip, start heparin drip if okay with general surgery, consult cardiology 21. Metabolic encephalopathy secondary to acute kidney injury, hyponatremia, incarcerated ventral hernia, Covid 19, UTI. MRI of the brain negative for acute findings. 22. Severe protein calorie malnutrition. Patient has been started on TPN. 23. Acute hypoxic respiratory failure requiring BiPAP. Dr. Staton is managing. Continue oxygen therapy. 24. SIRS with tachycardia and leukocytosis. Continue current treatment. CODE STATUS: no code. Guarded prognosis. Discharge Plan[facility] once stable.
--- NOTE | 2020-05-05 14:52 | XR ---
EXAM: Abdomen radiograph. HISTORY: Pain. No colostomy output. TECHNIQUE: Supine AP view. COMPARISON: 05/02/2020. FINDINGS: There are nondilated bowel loops with a nonobstructive pattern. There are no pathologic calcification s. No acute osseous abnormality seen. Abdominal postsurgical changes with multiple skin hanh and surgical coils seen. Prior multilevel thoracolumbar vertebroplasty seen. Partially imaged right humer al ORIF. IMPRESSION: Nonobstructive bowel gas pattern.
[2020-05-05] MEDS ORDERED: HEPARIN SODIUM,PORCINE 5,000 UNIT/ML 1 ML VIAL IV PRN (14:56)
[2020-05-05 15:41] LABS: Partial Thromboplastin Time 33.1 sec (22.0-30.0)
[2020-05-05] MEDS: HEPARIN SOD,PORK IN 0.45% NACL 25,000 UNIT in 0.45% NACL 1 250ML.BAG IV SCH (15:59)
[2020-05-05 17:40] LABS: Glucose,Whole Blood 168 mg/dL (75-99)
[2020-05-05] MEDS: SODIUM CHLORIDE 0.9% 1,000 ML IV SCH (18:00)
[2020-05-05] MEDS: AMMONIUM LACTATE 12% LOTION 225 GM BTL TOPICAL SCH (20:09)
[2020-05-05] MEDS: OLANZapine 7.5 MG TAB PO SCH (20:09)
[2020-05-05 23:42] LABS: Glucose,Whole Blood 271 mg/dL (75-99)
[2020-05-06] MEDS: DILTIAZEM 125 MG in SODIUM CHLORIDE 0.9% 100 ML IV SCH (04:24)
[2020-05-06] MEDS: HYDROmorphone 1 MG/ML 1 ML SYRINGE IVP PRN ×5 (04:24→20:24)
[2020-05-06] MEDS: MVI, ADULT NO.4 WITH VIT K 10 ML, TRACE (CONC-1ML/DOSE) 1 ML in AMINO ACID 5%-D20W+LYTE... IV SCH ×6 (04:24→20:53)
[2020-05-06 06:07] LABS: Basophils # (A) 0.1 k/uL (0-0.2); Basophils % (A) 1 %; Eosinophils # (A) 0.3 k/uL (0-0.7); Eosinophils % (A) 2 %; HCT 30.5 % (34.0-46.0); HGB 9.3 gm/dL (11.4-16.0); Hypochromasia Slight; Lymphocytes # (A) 0.9 k/uL (1.0-4.8); Lymphocytes % (A) 7 %; MCH 30.4 pg (25.0-35.0); MCHC 30.6 g/dL (31.0-37.0); MCV 99.6 fL (80.0-100.0); Mean Platelet Volume 7.8; Monocytes # (A) 0.5 k/uL (0-1.0); Monocytes % (A) 4 %; Neutrophils # (A) 11.1 k/uL (1.3-7.7); Neutrophils % (A) 85 %; Platelet Count 228 k/uL (150-450); RBC 3.06 m/uL (3.80-5.40); RDW 13.3 % (11.5-15.5); WBC 13.1 k/uL (3.8-10.6)
[2020-05-06 06:22] LABS: Albumin 2.7 g/dL (3.5-5.0); Calcium 8.5 mg/dL (8.4-10.2); Phosphorus 3.9 mg/dL (2.5-4.5); Potassium 4.1 mmol/L (3.5-5.1); Total Bilirubin 0.4 mg/dL (0.2-1.3); Total Protein 6.5 g/dL (6.3-8.2)
[2020-05-06] MEDS: MORPHINE SULFATE 4 MG/ML SYRINGE IVP PRN (06:46)
[2020-05-06 06:57] LABS: Glucose,Whole Blood 163 mg/dL (75-99)
[2020-05-06] MEDS: INSULIN ASPART (NovoLOG) 100 UNIT/ML VIAL SQ SCH ×3 (07:09→20:19)
--- NOTE | 2020-05-06 07:41 | XR ---
EXAMINATION TYPE: XR chest 1V portable DATE OF EXAM: 05/06/2020 COMPARISON: 05/05/2020 HISTORY: Shortness of breath TECHNIQUE: Single frontal view of the chest is obtained. FINDINGS: Limited inspiration with changes of multiple areas of previous vertebral plasty. Left-side d PICC line noted. Bilateral consolidation and small effusion diffuse interstitial pattern. IMPRESSION: Diffuse bilateral patchy infiltrate stable correlate for pneumonia.
[2020-05-06] MEDS: FUROSEMIDE 10 MG/ML 4 ML VIAL IV SCH ×2 (08:40→20:23)
[2020-05-06] MEDS: cycloSPORINE 0.05% OPHTH 0.4 ML DROPERETTE BOTH EYES SCH ×2 (08:40→20:36)
[2020-05-06] MEDS: metroNIDAZOLE-NS PMX 500 MG in SALINE 1 100ML.BAG IVPB SCH ×2 (08:40→17:22)
[2020-05-06] MEDS: ESCITALOPRAM 10 MG TAB PO SCH (08:41)
[2020-05-06] MEDS: SODIUM BICARBONATE TAB 650 MG TAB PO SCH ×3 (08:41→20:26)
[2020-05-06] MEDS: METOPROLOL SUCCINATE (ER) 25 MG TAB.ER.24H PO SCH (08:41)
[2020-05-06] MEDS: PANTOPRAZOLE 40 MG/10 ML VIAL IVP SCH (08:41)
--- NOTE | 2020-05-06 10:48 | P.PN ---
Subjective Progress Note Date: 05/06/20 This is an 85-year-old female patient of Dr. Garcia and Dr. Pulido with past medical history of asthma, CAD with ischemic cardiomyopathy, previous history of lung cancer post resection who is known to have severe lower back pain, history of Klebsiella pneumoniae ESBL urinary tract infection, memory impairment, rectal cancer post low anterior resection with colostomy placement and she has had her stoma moved from one side to the other times to with significant peristomal hernia, patient developed to have a significant abdominal pain as well as constipation over the last few days at [facility] at that time she was given a Dulcolax suppository through the stoma and she was started on lactulose 30 g orally twice every day patient has been complaining of increased abdominal pain and distention not able to have a good BM through the stoma, an x-ray was done over there and that showed nonobstructive gas pattern with significant stool buildup, patient today was having increased amount of pain associated with nausea and not able to eat or drink she was dehydrated as well has not been eating much over the last few days, she was directed to go to the emergency department at [facility] where she was found to have an acute kidney injury as well a hyperkalemia, patient underwent CT abdomen and pelvis without contrast that showed a large right side abdominal wall ventral hernia that contains multiple loops of the small bowel hernia measures about 612 cm the opening is 5.5 cm the small bowel measures up to 3.5 cm in diameter there was incarcerated in and some mildly dilated loops of small bowel consistent with partial mechanical obstruction related to the hernia, patient was started on IV fluid as well as IV antibiotic, and surgical consultation was obtained from and had a long conversation with the emergency room physician on the complexity of the case and if the patient is not a candidate for any surgical intervention at [facility] she will need to be transferred to [facility], this was discussed with her over the phone. 04/21: Patient sitting up in bed in no apparent distress, she appears to be a bit short of breath, her IV fluids were decreased to 75 mL an hour, we'll monitor her input and output and daily weight, she was seen in consultation by cardiology in preparation for surgical intervention will be planned for tomorrow morning, I spoke general surgery and they feel that the patient can the served here for a better quality of life, and there is no need for the patient be transferred to a tertiary care center, cardiology consultation was obtained, echocardiogram will be done, EKG was done also continue beta gume in the form of metoprolol 25 mg orally twice every day, monitor the patient very closely at this time hold off ANGELICA inhibitor due to her kidney function, nephrology seen the patient as well and she seems to be doing better. 04/22: Patient is laying down in bed in minimal respiratory distress, she did receive 40 mg Lasix earlier today because of expiratory wheezes and increased shortness of breath, portable chest x-ray and abdominal x-ray was obtained, we will hold off any surgery at this time until obtaining the result of the x-ray patient does have a good stool output and her stoma at this time, echo care gram still pending at the time of dictation, I believe the patient needs to be monitored for another 24 hours before any surgical intervention. 04/23: Patient known to have mental status changes. CAT scan of the brain ordered which revealed only chronic age-related changes with chronic small vessel ischemia. CTA of the chest done yesterday revealed no pulmonary embolism. T here is new bilateral pleural effusions and pulmonary infiltrates and atelectasis. Heart appeared increased in size with probable congestive heart failure. Large pulmonary arteries consistent with pulmonary hypertension unchanged. Multiple old thoracic compression fractures. New compression frac ture of T4. Patient is afebrile, heart rate 114, blood pressure 182/87, pulse ox 92% on room air. CBC 14.7, hemoglobin 12. Sodium 143, potassium 3.8, chloride 110, CO2 16, BUN 21 and creatinine 0.86. Urine culture is positive for Providencia stuartii. Rocephin will be discontinued and patient started on meropenem 1 g IV piggyback every 8 hours. Echocardiogram reveals EF of 55-60% with mild concentric left ventricular hypertrophy, mild to moderate mitral regurgitation, [id number]-vicksjta tricuspid regurgitation, mild to moderate pulmonary hypertension. 2: Patient continues to have increased confusion and noted to have difficulty swallowing. Speech therapy has evaluated with recommendations. Consult has also been added for neurology for dysphagia. Medications reviewed and patient r esumed on Zyprexa and Lexapro. Patient is afebrile, heart rate 89, blood pressure 160/70, pulse ox 97% on 2 L nasal cannula. There is slight and there is a slight rise in her leukocytosis of 15.7. Hemoglobin is 11. Sodium is 148 potassium 3.2, chloride 113, CO2 20, BUN 25 and creatinine 1.12. IV fluids transition to dextrose 5% at 60 mL/h. Cardiology ordered Cardizem drip for episode of atrial fibrillation. She is continued on IV antibiotics with meropenem and Flagyl. Patient's will be contacted via phone and updated. Patient is not stable at this time for surgical intervention. 2: Patient has been seen by neurology for metabolic encephalopathy. X-ray of the chest reveals improving left lower lobe infiltrate, scattered infiltrates still present bilaterally. Prominence of the heart and pulmonary vasculature. Correlate for heart failure, atypical pulmonary edema could be considered, atypical pneumonia is within differential. Sodium 147, potassium 3.5, chloride 113, BUN 26 and creatinine 1.05. Ammonia level less than 9. TSH 0.490. Nephrology has continued D5W. Patient is unresponsive to questions, not verbalizing, staring blankly. is at bedside. Discussed CODE STATUS with the patient's and he is unable to make a decision at this time oth er than to keep her full code. MRI of the brain ordered to rule out brainstem infarct. General surgery continues to follow for the large parastomal hernia with incarceration, to be done if patient is medically stable. 2: MRI of the brain reveals age-related atrophy with confluence chronic appea ring. Ventricular white matter ischemic type changes. EEG is abnormal with moderate to severe encephalopathy. Patient apparently said yes and no to the nurse today. There's been no seizure activity noted. Patient is eating less than 25% of her meals. IV fluids been increased to 100 mL per hour per nephrology. WBC 20.9, hemoglobin 11.2. Sodium 147, potassium 3.7, chloride 115, CO2 25, BUN 23 and creatinine 0.75. Blood sugar 123. 25: Patient's mental status is improving, she is more awake and alert today, able to answer questions. Speech therapy has evaluated and plan to start trials of diet. Ostomy is functioning. Sodium level is better today at 146. Potassium is 3.7, chloride 114, CO2 25, BUN 23 and creatinine 0.81. She is still on Cardizem drip for atrial fibrillation. She is been afebrile, heart rate in the 80s, blood pressure 130/61, pulse ox 90% on 1 L nasal cannula. Patient continues on D5W at 100 mL per hour. 04/30: Patient is awake and alert. Mental status is much improved. She is scheduled for surgery today with Dr. Falcon. Patient's is at bedside. She has been afebrile, heart rate 75, blood pressure 144/76, pulse ox 90% on room air. WBC 8.7, hemoglobin 11.3. Sodium 136 otherwise electrolytes renal function are normal. Liver function tests are normal. Air in the ostomy bag. No stool at this point. Baez catheter draining clear tobin urine. 05/01: Patient remains in the intensive care unit on BiPAP. Patient is able states she feels better from yesterday. She is status post exploratory laparotomy, parastomal hernia repair, lysis of adhesions, partial colectomy, partial omentectomy, and repair of incisional hernia, postop day #1 patient appears to be comfortable at rest. Pulse ox is 100% on BiPAP. She has been afebrile, heart rate 89, blood pressure 125/72. W BC 17.8, hemoglobin 12. Sodium 136, potassium 4.3, chloride 107, CO2 21, BUN 14 and creatinine 0.78. Liver function tests normal. Patient is known to have generalized edema. Patient was given 1 dose of IV Lasix this morning and we will plan to repeat that this afternoon. Patient is continued on IV Flagyl. 05/02: Patient remains in the intensive care unit. Currently on BiPAP with 50% FiO2 with a pulse ox of 100%. She's been afebrile, heart rate 87, blood pres sure 122/52. Abdominal x-ray shows nonobstructive gas pattern. Chest x-ray this morning reveals marked hypo-ventilation changes. Worsening interstitial changes and patchy airspace infiltrates. WBC 27.8, hemoglobin 10.3, platelet count 222. Electrolytes and renal function are normal. Blood sugars are running in the 140s. Patient is complaining of significant pain. Dilaudid and morphine dosing has been adjusted. Patient is known to have difficulty with both medications with mental status changes. Blood no the patient does well with Percocet and will order 7.5 one every 6 hours as needed. Stoma is slightly dusky in color. The old ostomy site has erythema and warmth. Patient has no output from ostomy. Patient was started on TPN today and fluids discontinued. Due to generalized edema and anasarca, IV Lasix 40 mg daily ordered. Patient had good urine output yesterday after IV Lasix. Output is currently 10-15 mL per hour. 05/03: Patient remains in intensive care unit. She is still not had output from her colostomy. She is complaining of significant pain. We did add in the Percocet to be given orally. We will also ask the nurse to give Zyprexa as scheduled otherwise patient will have difficulty with mental status changes/psychosis. She remains nothing by mouth and has been started on TPN. Patient is able to follow simple commands and answer yes and no questions but meds patient is not at her baseline. She has been afebrile, WBC 20.2, hemoglobin 10.1, sodium 137, potassium 4, creatinine 0.75. Heart rate is running in the low 100s, she is been afebrile, blood pressure 164/70, pulse ox 99% on 2 L. 05/04: Patient remains in the intensive care unit. The patient is placed on BiPAP pulse ox 100% with 50% FiO2. She continues to have difficulty with pain control. TPN is in place. Lasix was increased today to 40 milligrams IV every 12 hours. Repeat Covid has been ordered. Chest x-ray reveals progressive infiltrates throughout the right lung with small effusions. Mild patchy density left lower lobe. Patient has not had any output from colostomy. Stoma is still dusky. Prognosis is guarded. 05/05: Patient is in intensive care unit, she continues to moan and groan, she has been getting IV pain management, she has been receiving TPN, so far no out put of her stoma, patient is maintained on meropenem as well as metronidazole, patient developed atrial fibrillation with rapid ventricular response she was started on Cardizem drip, cardiology consultation, so the patient on heparin drip, and there is no Indication by general surgery, to avoid from embolic disease, we will update the family about her current progress. 04/26: Patient remains in intensive care unit, she continues to have moaning and groaning, very minimal output of her stoma, she continues to be edematous, she is receiving TPN, we will monitor very closely, she was started on heparin drip as well as Cardizem drip yesterday because of atrial fibrillation with rapid response, she is maintained on Flagyl and meropenem, we'll continue to monitor very closely her prognosis very guarded. I had a long conversation with her today regarding her prognosis and that she is not doing too well without, we will let him come up and see the patient and will make the final decision on how to pursue her care this point we'll continue with no code at this time as her quality of life has declined with the last year or so. Objective - Vital Signs Vital signs: Vital Signs Temp 36.6 F L 05/06/20 08:00 Pulse 97 05/06/20 08:00 Resp 28 H 05/06/20 08:00 BP 136/70 05/06/20 08:00 Pulse Ox 94 L 05/06/20 08:00 Intake & Output 05/05/20 05/06/20 05/06/20 18:59 06:59 18:59 Intake Total 2132.667 2283.73 160 Output Total 1075 850 65 Balance 0890.956 5533.73 95 Weight 69 kg Intake: IV 1080 1160 160 Meropenem 1 gm In Sodium 100 100 Chloride 0.9% 100 ml @ 33 .3 mls/hr IVPB Q12HR [facility] Rx#:[id number] Mvi, Adult No.4 with Vit 660 K 10 ml Trace (Conc-1Ml/ Dose) 1 ml In Amino Acid 5%-D20w+Lytes*E* 1,000 ml @ 60 mls/hr IV .[id number] [facility] Rx#:[id number] Mvi, Adult No.4 with Vit 720 120 K 10 ml Trace (Conc-1Ml/ Dose) 1 ml In Amino Acid 5%-D20w+Lytes*E* 1,000 ml @ 60 mls/hr IV .[id number] [facility] Rx#:[id number] Sodium Chloride 0.9% 1, 220 240 40 000 ml @ 20 mls/hr IV . Q24H [facility] Rx#:[id number] metroNIDAZOLE-NS PMX 500 100 100 mg In Saline 1 100ml.bag @ 100 mls/hr IVPB Q8HR [facility] Rx#:[id number] Intake, IV Titration 453.273 9578.73 Amount Diltiazem 125 mg In 5.667 195.25 Sodium Chloride 0.9% 100 ml @ 10 MG/HR 10 mls/hr IV .[id number] [facility] Rx#: [id number] Heparin Sod,Pork in 0.45% 54.48 NaCl 25,000 unit In 0.45 % NaCl 1 250ml.bag @ 12 UNITS/KG/HR 8.172 mls/hr IV .Q24H [facility] Rx#: [id number] Mvi, Adult No.4 with Vit 966 874 K 10 ml Trace (Conc-1Ml/ Dose) 1 ml In Amino Acid 5%-D20w+Lytes*E* 1,000 ml @ 60 mls/hr IV .[id number] [facility] Rx#:[id number] TPN/PPN 60 Mvi, Adult No.4 with Vit 60 K 10 ml Trace (Conc-1Ml/ Dose) 1 ml In Amino Acid 5%-D20w+Lytes*E* 1,000 ml @ 60 mls/hr IV .[id number] [facility] Rx#:[id number] Lipid 21 Fat Emulsion 20% 250 ml 21 In Empty Bag 1 bag @ 21 mls/hr IV MoWeFr [facility] Rx#: [id number] Output: Urine 1075 850 65 Stool 0 Other: Voiding Method Indwelling Catheter Indwelling Catheter - Exam Exam Review of Systems Constitutional: Reports anorexia, Reports fatigue, denies lethargy, Reports malaise, Reports weakness, Reports weight loss. Complains of significant pain. Eyes: denies blurred vision, denies bulging eye, denies decreased vision Ears: bilateral: decreased hearing Ears, nose, mouth and throat: Denies dysphagia, Denies neck lump, Denies sore throat Cardiovascular: Denies chest pain, Denies decreased exercise tolerance, Denies dyspnea on exertion, Denies lightheadedness, Denies rapid heart beat, Denies shortness of breath, Denies syncope Respiratory: Denies congestion, Denies cough with sputum, Denies home oxygen, Denies sleep apnea, Denies snoring, Denies wheezing Gastrointestinal: Reports abdominal pain worsening, Reports bloating, Reports constipation, Reports early satiety, Reports loss of appetite, Reports nausea, Reports vomiting Genitourinary: Denies dysuria, Denies nocturia Menstruation: Reports postmenopausal Musculoskeletal: Reports atrophy, Reports frequent falls, Reports gait dysfuncti on, Reports loss of height, Reports low back pain, Reports muscle weakness Musculoskeletal: absent: ankle pain, ankle stiffness, ankle swelling, elbow pain, elbow stiffness, elbow swelling, foot pain, foot stiffness, foot swelling, hand pain, hand stiffness, hand swelling, hip pain, hip stiffness, hip swelling, knee pain, knee stiffness, knee swelling, shoulder pain, shoulder stiffness, shoulder swelling, wrist pain, wrist stiffness, wrist swelling Integumentary: Denies pruritus, Denies rash Neurological: Reports balance difficulties, Reports gait dysfunction, Reports weakness, reported mental status changes Psychiatric: Denies anxiety, Denies depression Physical examination HEENT: Head is atraumatic, normocephalic, pupils were equal round reactive to light and accommodation, extraocular muscle movement were intact, sclera nonicteric conjunctiva are pale, mucous membranes of mouth are dry. Neck: Supple, no JVD, decreased carotid upstroke bilaterally. Chest: There is significant kyphosis present, decreased breath sounds at the bases, few rhonchi, no expiratory wheezes, no chest wall tenderness, no intercostal retractions. Heart: First heart sound is depressed, second heart sounds normal, there is systolic ejection murmur 2/6 located in the left border, irregularly irregular d ue to atrial fibrillation, tachycardic. Abdomen: Soft and moderate tenderness generalized, stoma to the left of midline is slightly dusky. Old stoma site has erythema and warmth. Stoma bag is empty. Positive drainage from both surgical sites. Extremities: There is +3 edema, no calf tenderness, dorsalis pedis +1 bilaterally,, patient continues to be in positive balance. Neurologic examination: Patient is awake and alert oriented to person, able to answer questions and follow simple commands. Patient appears to be quite uncomfortable. - Labs CBC & Chem 7: 05/06/20 05:54 05/06/20 05:54 Labs: Abnormal Lab Results - Last 24 Hours (Table) 05/05/20 05/05/20 05/05/20 Range/Units 13:44 15:11 17:37 WBC (3.8-10.6) k/uL RBC (3.80-5.40) m/uL Hgb (11.4-16.0) gm/dL Hct (34.0-46.0) % MCHC (31.0-37.0) g/dL Neutrophils # (1.3-7.7) k/uL Lymphocytes # (1.0-4.8) k/uL APTT 33.1 H (22.0-30.0) sec BUN (7-17) mg/dL Glucose (74-99) mg/dL POC Glucose (mg/dL) 214 H 168 H (75-99) mg/dL Albumin (3.5-5.0) g/dL 05/05/20 05/05/20 05/06/20 Range/Units 21:13 23:40 05:54 WBC (3.8-10.6) k/uL RBC (3.80-5.40) m/uL Hgb (11.4-16.0) gm/dL Hct (34.0-46.0) % MCHC (31.0-37.0) g/dL Neutrophils # (1.3-7.7) k/uL Lymphocytes # (1.0-4.8) k/uL APTT 80.7 H (22.0-30.0) sec BUN 51 H (7-17) mg/dL Glucose 146 H (74-99) mg/dL POC Glucose (mg/dL) 271 H (75-99) mg/dL Albumin 2.7 L (3.5-5.0) g/dL 05/06/20 05/06/20 05/06/20 Range/Units 05:54 05:54 06:56 WBC 13.1 H (3.8-10.6) k/uL RBC 3.06 L (3.80-5.40) m/uL Hgb 9.3 L (11.4-16.0) gm/dL Hct 30.5 L (34.0-46.0) % MCHC 30.6 L (31.0-37.0) g/dL Neutrophils # 11.1 H (1.3-7.7) k/uL Lymphocytes # 0.9 L (1.0-4.8) k/uL APTT 65.1 H (22.0-30.0) sec BUN (7-17) mg/dL Glucose (74-99) mg/dL POC Glucose (mg/dL) 163 H (75-99) mg/dL Albumin (3.5-5.0) g/dL Assessment and Plan Assessment: Assessment and Plan Plan: 1. Large right lateral abdominal wall hernia with incarceration status post repair of parastomal hernia, lysis of adhesions, partial colectomy, repair of incisional hernia, partial omentectomy. Continue to monitor input and output and daily weight, pain control, this is a high-risk patient, continue meropenem 1 g IV piggyback every 8 hours, continue current pain management with Percocet if possible, monitor the patient respiratory status. 2. Acute kidney injury due to poor oral intake of fluid and acute tubular necrosis. Recovered, monitor input and output and daily weight, check the patient CMP tomorrow morning. 3. Hyperkalemia likely related to acute kidney injury. Continue to monitor 4. Metabolic encephalopathy secondary to acute kidney injury as well as incarcerated large ventral hernia. Continue continue IV antibiotic, monitor the patient very closely. 5. Chronic kidney failure CKD stage II currently with acute kidney injury continue IV fluid resuscitation repeat CMP tomorrow morning. 6. CAD and non-ischemic cardiomyopathy and chronic diastolic heart failure with ejection fraction of 50%. We will maintain the patient on metoprolol 7. Hypertension and hypertensive cardiovascular disease. Continue IV hydralazine as needed. 8. Sjogren syndrome. We'll hold off Salagen 9. Anemia of chronic medical illnesses. Continue to monitor the patient's CBC 10. Chronic pain syndrome. Continue Percocet if patient is able to take oral pain medicine.. 11. Overactive bladder. Discontinue Detrol. 12. 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 13. History of rectal cancer post-low anterior resection with colostomy placement . 14. DVT prophylaxis. Start the patient on Lovenox 40 mg subcutaneously every 24 hours. 15. GI prophylaxis. Protonix 40 mg IV push every 24 hours. 16. Recurrent depression. Continue Zyprexa and Lexapro. Patient to receive Zyprexa despite nothing by mouth status. 17. Acute urinary tract infection. Continue meropenem 1 g IV piggyback every 8 hours. 18. Valvular heart disease with [id number] mitral regurgitation, [id number] tricuspid regurgitation and mild to moderate pulmonary hypertension. 19. Hypernatremia. Monitor 20. paroxysmal atrial fibrillation currently with rapid ventricular response continue Cardizem drip, start heparin drip if okay with general surgery, consult cardiology 21. Metabolic encephalopathy secondary to acute kidney injury, hyponatremia, incarcerated ventral hernia, Covid 19, UTI. MRI of the brain negative for acute findings. 22. Severe protein calorie malnutrition. Patient has been started on TPN. 23. Acute hypoxic respiratory failure requiring BiPAP. Dr. Staton is managing. Continue oxygen therapy. 24. SIRS with tachycardia and leukocytosis. Continue current treatment. CODE STATUS: no code. Guarded prognosis. Discharge Plan: Return to [facility] once stable.
[2020-05-06] MEDS: MEROPENEM 1 GM in SODIUM CHLORIDE 0.9% 100 ML IVPB SCH ×2 (11:15→20:36)
--- NOTE | 2020-05-06 11:42 | P.PN ---
Subjective Progress Note Date: 05/06/20 Principal diagnosis: Status post repair of parastomal hernia, lysis of adhesions, partial colectomy, partial omentectomy, postoperative day #6 This is an 85-year-old female patient who underwent repair of parastomal hernia. The patient has history of rectal cancer and she has undergone a low AP resection with colostomy and the patient came into the hospital because of significant abdominal pain as well as constipation over the past 2 days as the patient resides at [facility] on the [place]. She was given Dulcolax suppositories through the stoma and she was also started on lactulose 30 g twice a day and she continued to complain of increased abdominal pain and distention and she was not able to have any bowel movements with the stoma. X-ray showed nonobstructive gas pattern and significant stool buildup and the patient was having increased amount of pain along with nausea and she was unable to drink and eat. At that point, a CAT scan of the abdomen was done that showed large right-sided abdominal wall ventral hernia that contained multiple loops of small bowel measu ring about 6 x 12 cm in size and the opening was 5.5 cm and the small bowel measuring up to 3.5 cm in diameter and there was incarceration and some mild dilated loops of small bowel consistent with a partial mechanical obstruction related to the hernia. Note that the patient was taken to the operating room today. Preoperatively, she was having some encephalopathy and she seemed to be gradually improving with conservative management. He was taken to the OR and she underwent exploratory laparotomy, repair of a parastomal hernia, lysis of adhesions, partial colectomy and repair of an incisional hernia and partial omentectomy. The estimated blood loss was only 100 mL. The previously inserted tachycardia colostomy was transected and it was replaced on the other side in the left upper quadrant. Postextubation, the patient some increased difficulty breathing. She was kept on a BiPAP at a pressure of 12/60 to me as of water and FiO2 of 50% and currently she is in the intensive care unit. Chest x-ray and blood gases are still pending. The patient was quite obtunded at a time of arrival and she is gradually recovering her level of consciousness for now. She is currently on IV fluids with normal state rate of 50 mL an hour. She is also taking a combination of Flagyl and meropenem as broad-spectrum antibiotics patient on Lovenox 40 mg subcu for DVT prophylaxis. Blood work from this morning showed a hemoglobin of 11.3 with a white cell count of 8.7. Function is stable with a creatinine of 0.7. The patient's albumin was down to 2.5 with a total protein of 5.5. SGPT and SGOT l within normal limits. Reevaluated today on 05/06/2020, patient remains in the ICU, she is on 2 L nasal cannula, in no form of respiratory distress, however the patient is moaning and groaning and complaining of abdominal pain. Improves with pain control medication/Dilaudid, hence I recommended more Dilaudid to be given today. Continues to have significant edema in all her extremities. Patient remains on diuretics. Not requiring BiPAP at this point. Chest x-ray showed bilateral patchy infiltrates, and bibasilar atelectasis. With elevated right hemidiaphragm. Colostomy does not seem to be functional so far. And that being addressed by surgery on the case. Her surgical wound is clean and dry. And she continues to have hypoactive bowel sounds, abdomen seems to be a bit distended. W BC count is 13.1. Hemoglobin is 9.3. Renal profile showed a BUN of 51 creatinine 0.77. Chest x-ray again showed diffuse patchy bilateral infiltrates, and atelectasis Objective - Vital Signs Vital signs: Vital Signs Temp 36.6 F L 05/06/20 08:00 Pulse 72 05/06/20 11:00 Resp 15 05/06/20 11:00 BP 105/56 05/06/20 11:00 Pulse Ox 100 05/06/20 11:00 Intake & Output 05/05/20 05/06/20 05/06/20 18:59 06:59 18:59 Intake Total 2132.667 2283.73 656 Output Total 1075 850 535 Balance 1734.501 0011.73 121 Weight 69 kg Intake: IV 1080 1160 600 Meropenem 1 gm In Sodium 100 100 100 Chloride 0.9% 100 ml @ 33 .3 mls/hr IVPB Q12HR [facility] Rx#:[id number] Mvi, Adult No.4 with Vit 660 K 10 ml Trace (Conc-1Ml/ Dose) 1 ml In Amino Acid 5%-D20w+Lytes*E* 1,000 ml @ 60 mls/hr IV .[id number] [facility] Rx#:[id number] Mvi, Adult No.4 with Vit 720 300 K 10 ml Trace (Conc-1Ml/ Dose) 1 ml In Amino Acid 5%-D20w+Lytes*E* 1,000 ml @ 60 mls/hr IV .[id number] [facility] Rx#:[id number] Sodium Chloride 0.9% 1, 220 240 100 000 ml @ 20 mls/hr IV . Q24H [facility] Rx#:[id number] metroNIDAZOLE-NS PMX 500 100 100 100 mg In Saline 1 100ml.bag @ 100 mls/hr IVPB Q8HR [facility] Rx#:[id number] Intake, IV Titration 351.202 7148.73 56 Amount Diltiazem 125 mg In 5.667 195.25 56 Sodium Chloride 0.9% 100 ml @ 10 MG/HR 10 mls/hr IV .[id number] [facility] Rx#: [id number] Heparin Sod,Pork in 0.45% 54.48 NaCl 25,000 unit In 0.45 % NaCl 1 250ml.bag @ 12 UNITS/KG/HR 8.172 mls/hr IV .Q24H [facility] Rx#: [id number] Mvi, Adult No.4 with Vit 966 874 K 10 ml Trace (Conc-1Ml/ Dose) 1 ml In Amino Acid 5%-D20w+Lytes*E* 1,000 ml @ 60 mls/hr IV .[id number] [facility] Rx#:[id number] TPN/PPN 60 Mvi, Adult No.4 with Vit 60 K 10 ml Trace (Conc-1Ml/ Dose) 1 ml In Amino Acid 5%-D20w+Lytes*E* 1,000 ml @ 60 mls/hr IV .[id number] [facility] Rx#:[id number] Lipid 21 Fat Emulsion 20% 250 ml 21 In Empty Bag 1 bag @ 21 mls/hr IV MoWeFr [facility] Rx#: [id number] Output: Urine 1075 850 535 Stool 0 Other: Voiding Method Indwelling Catheter Indwelling Catheter Indwelling Catheter - Exam GENERAL EXAM: Revealed 85-year-old female, in bed, moaning and groaning, and she is on 2 L nasal cannula. HEAD: Normocephalic/atraumatic. EENT: PERRLA, EOMI, nonicteric, no neck masses, no JVD, no stridor. Dry mucous membranes noted CHEST: No chest wall deformity. Symmetrical expansion. LUNGS: Fine crackles at the bases and rhonchi noted bilaterally. CVS: Regular rate and rhythm, normal S1 and S2, no gallops, no murmurs, no rubs ABDOMEN: Right kidney distended nonrigid, tender to light palpation mid abdominal incision is clean dry and intact, left lower quadrant colostomy with no gas or stool. No hepatosplenomegaly, normal bowel sounds, minimal tenderness noted and the abdomen is distended. EXTREMITIES: No clubbing, diffuse generalized swelling, no cyanosis, 2+ pulses and upper and lower extremities. MUSCULOSKELETAL: Muscle strength and tone normal. SPINE: No scoliosis or deformity SKIN: No rashes CENTRAL NERVOUS SYSTEM: Confused, arousable, does not follow any instructions, moaning and groaning complaining of pain in her abdomen. - Labs CBC & Chem 7: 05/06/20 05:54 05/06/20 05:54 Labs: Abnormal Lab Results - Last 24 Hours (Table) 05/05/20 05/05/20 05/05/20 Range/Units 13:44 15:11 17:37 WBC (3.8-10.6) k/uL RBC (3.80-5.40) m/uL Hgb (11.4-16.0) gm/dL Hct (34.0-46.0) % MCHC (31.0-37.0) g/dL Neutrophils # (1.3-7.7) k/uL Lymphocytes # (1.0-4.8) k/uL APTT 33.1 H (22.0-30.0) sec BUN (7-17) mg/dL Glucose (74-99) mg/dL POC Glucose (mg/dL) 214 H 168 H (75-99) mg/dL Albumin (3.5-5.0) g/dL 05/05/20 05/05/20 05/06/20 Range/Units 21:13 23:40 05:54 WBC (3.8-10.6) k/uL RBC (3.80-5.40) m/uL Hgb (11.4-16.0) gm/dL Hct (34.0-46.0) % MCHC (31.0-37.0) g/dL Neutrophils # (1.3-7.7) k/uL Lymphocytes # (1.0-4.8) k/uL APTT 80.7 H (22.0-30.0) sec BUN 51 H (7-17) mg/dL Glucose 146 H (74-99) mg/dL POC Glucose (mg/dL) 271 H (75-99) mg/dL Albumin 2.7 L (3.5-5.0) g/dL 05/06/20 05/06/20 05/06/20 Range/Units 05:54 05:54 06:56 WBC 13.1 H (3.8-10.6) k/uL RBC 3.06 L (3.80-5.40) m/uL Hgb 9.3 L (11.4-16.0) gm/dL Hct 30.5 L (34.0-46.0) % MCHC 30.6 L (31.0-37.0) g/dL Neutrophils # 11.1 H (1.3-7.7) k/uL Lymphocytes # 0.9 L (1.0-4.8) k/uL APTT 65.1 H (22.0-30.0) sec BUN (7-17) mg/dL Glucose (74-99) mg/dL POC Glucose (mg/dL) 163 H (75-99) mg/dL Albumin (3.5-5.0) g/dL Assessment and Plan Assessment: exploratory laparotomy, repair of a parastomal hernia and lysis of adhesions with partial colectomy and repair of an incisional hernia and partial omentectomy. The patient is postop day number 6 Acute hypoxic respiratory failure with bilateral patchy infiltrates and atelectasis , patient had recent covid 19 infection, and she clearly has possible underlying bacterial pneumonia at this point, suspect acute hospital- acquired pneumonia. Remains on antibiotics empirically. Acute urinary tract infection, well covered with antibiotics. Acute metabolic encephalopathy. Acute on chronic kidney injury improving. Benign essential hypertension. History of Sjogren syndrome Chronic pain syndrome. History of rectal cancer and previous low anterior resection with colostomy placement. Paroxysmal atrial fibrillation Severe protein calorie malnutrition Chronic anemia. Vascular dementia. Valvular heart disease with moderate mitral regurgitation and mild to moderate pulmonary hypertension. History of overactive bladder. Recommendation: Continue to monitor in the ICU. Continue antibiotics. Continue BiPAP as needed. Continue present supportive care measures. Surgery is following regarding her abdominal distention and nonfunctional colostomy. Keep patient nothing by mouth. Continue TPN for nutritional support. Continue to monitor fluids status. And monitor electrolytes. Continue GI and DVT prophylaxis. Should consider comfort care measures on this patient, as prognosis seems to be extremely poor and guarded. We'll discuss her status with family over the phone. Patient remains critically ill, and marginal, critical care time is over 30 minutes. Time with Patient: Greater than 30
[2020-05-06 12:04] LABS: Glucose,Whole Blood 179 mg/dL (75-99)
--- NOTE | 2020-05-06 12:57 | P.PN ---
Progress Note - Text Progress Note Date: 05/06/20 Patient still has minimal output through her colostomy. Vital signs appear stable. Abdomen soft. Incisions clean dry intact. Patient's x-ray was reviewed from yesterday. She is to have a nonobstructive gas pattern. She most likely has an ileus related to her underlying comorbidities. Patient we'll continue to receive supportive care.
[2020-05-06 17:18] LABS: Glucose,Whole Blood 167 mg/dL (75-99)
--- NOTE | 2020-05-06 19:12 | PN ---
PROGRESS NOTE Malena is an 85-year-old lady was admitted to hospital with Covid related infection and had bowel obstruction and underwent surgery for the same. Cardiology has done a consult on her on this admission and sent signed off. We were asked to be reconsulted yesterday because of atrial fibrillation. The patient was treated with intravenous Cardizem and heparin, converted back to sinus rhythm and is currently on IV heparin and may become comfort care tomorrow. I have not physically examined the patient. I evaluated the patient from outside and reviewed her chart and talked to the nurse. On exam, heart rate is 98 beats per minute. Blood pressure is 145/60, respiratory rate is 26, O2 saturation is 96%. Labs show a hemoglobin of 9.3, platelet count is 228, potassium is 4.1. Creatinine is 0.7, BUN is 51. ASSESSMENT: 1. Covid infection. 2. Status post bowel surgery. 3. Paroxysmal atrial fibrillation. PLAN: I will stop the IV Cardizem. Continue IV heparin. MMODL / IJN: [id number] /
[2020-05-06] MEDS: SODIUM CHLORIDE 0.9% 1,000 ML IV SCH (20:17)
[2020-05-06] MEDS: AMMONIUM LACTATE 12% LOTION 225 GM BTL TOPICAL SCH (20:19)
[2020-05-06] MEDS: OLANZapine 7.5 MG TAB PO SCH (20:26)
[2020-05-07 00:06] LABS: Glucose,Whole Blood 145 mg/dL (75-99)
[2020-05-07] MEDS: METOPROLOL SUCCINATE (ER) 25 MG TAB.ER.24H PO SCH ×3 (00:06→20:14)
[2020-05-07] MEDS: HYDROmorphone 1 MG/ML 1 ML SYRINGE IVP PRN ×7 (00:10→21:42)
[2020-05-07] MEDS: INSULIN ASPART (NovoLOG) 100 UNIT/ML VIAL SQ SCH ×4 (00:10→19:13)
[2020-05-07] MEDS: HEPARIN SOD,PORK IN 0.45% NACL 25,000 UNIT in 0.45% NACL 1 250ML.BAG IV SCH ×2 (00:11→20:05)
[2020-05-07] MEDS: metroNIDAZOLE-NS PMX 500 MG in SALINE 1 100ML.BAG IVPB SCH ×3 (00:13→16:50)
[2020-05-07] MEDS: DILTIAZEM 125 MG in SODIUM CHLORIDE 0.9% 100 ML IV SCH ×2 (03:40→20:03)
[2020-05-07 03:57] LABS: Basophils # (A) 0.1 k/uL (0-0.2); Basophils % (A) 1 %; Eosinophils # (A) 0.4 k/uL (0-0.7); Eosinophils % (A) 4 %; HCT 27.9 % (34.0-46.0); HGB 8.8 gm/dL (11.4-16.0); Hypochromasia Slight; Lymphocytes # (A) 0.8 k/uL (1.0-4.8); Lymphocytes % (A) 7 %; MCH 31.2 pg (25.0-35.0); MCHC 31.4 g/dL (31.0-37.0); MCV 99.3 fL (80.0-100.0); Mean Platelet Volume 8.5; Monocytes # (A) 0.3 k/uL (0-1.0); Monocytes % (A) 3 %; Neutrophils # (A) 9.1 k/uL (1.3-7.7); Neutrophils % (A) 84 %; Platelet Count 194 k/uL (150-450); RBC 2.81 m/uL (3.80-5.40); RDW 13.6 % (11.5-15.5); WBC 10.8 k/uL (3.8-10.6)
[2020-05-07 04:37] LABS: Albumin 2.3 g/dL (3.5-5.0); Calcium 8.1 mg/dL (8.4-10.2); Magnesium 1.9 mg/dL (1.6-2.3); Total Bilirubin 0.4 mg/dL (0.2-1.3); Total Protein 5.5 g/dL (6.3-8.2)
[2020-05-07 06:06] LABS: Glucose,Whole Blood 174 mg/dL (75-99)
--- NOTE | 2020-05-07 08:19 | P.PN ---
Progress Note - Text Progress Note Date: 05/07/20 This is an 85-year-old female patient with multiple comorbid conditions including paroxysmal atrial fibrillation who was admitted to the hospital initially with COVID-19 infection and also bowel obstruction and she underwent surgery. The patient was seen this morning. She is in atrial fibrillation with RVR and she is going to be started on Cardizem. She is on anticoagulation was heparin. There is discussion with the family regarding possible, fourth care. At this point I would continue the current medical regimen including IV Cardizem as well as IV heparin.
[2020-05-07] MEDS: MEROPENEM 1 GM in SODIUM CHLORIDE 0.9% 100 ML IVPB SCH ×2 (09:13→20:19)
[2020-05-07] MEDS: cycloSPORINE 0.05% OPHTH 0.4 ML DROPERETTE BOTH EYES SCH ×2 (09:13→20:19)
[2020-05-07] MEDS: ESCITALOPRAM 10 MG TAB PO SCH (09:13)
[2020-05-07] MEDS: FUROSEMIDE 10 MG/ML 4 ML VIAL IV SCH ×2 (09:13→20:19)
[2020-05-07] MEDS: PANTOPRAZOLE 40 MG/10 ML VIAL IVP SCH (09:14)
[2020-05-07] MEDS: SODIUM BICARBONATE TAB 650 MG TAB PO SCH ×3 (09:14→20:15)
[2020-05-07 10:24] VITALS: BMI 26.2
--- NOTE | 2020-05-07 11:09 | P.PN ---
Subjective Progress Note Date: 05/07/20 CHIEF COMPLAINT: incarcerated parastomal hernia HISTORY OF PRESENT ILLNESS: Patient seen and examined with Dr. Falcon. This is a 85-year-old female with a previous history of diverticulitis and colostomy. Patient has developed a large parastomal hernia with incarcerated small bowel. She has significant abdominal pain and problems with intermittent obstruction. Patient is currently in the ICU. She is status post exploratory laparotomy, repair of parastomal hernia, lysis of adhesions, partial colectomy, repair of incisional hernia and partial omentectomy on 04/30/20. Patient is currently on nasal cannula 2 L satting at 98%. Patient is still confused. She is lethargic. Per nursing says she is able to answer some questions. She's been receiving Dilaudid and Percocet for her abdominal pain. She is on TPN for nutrition support. Patient still has no stool or gas per ostomy. Afebrile. She is tachycardic. And she is currently on IV Cardizem and IV heparin for atrial fibrillation with RVR. Per nursing staff there is a family discussion scheduled for later today regarding possible comfort care. WBC 10.8 PHYSICAL EXAM: VITAL SIGNS: Reviewed. GENERAL: Well-developed in no acute distress. HEENT: No sclera icterus. Extraocular movements grossly intact. Moist buccal mucosa. Head is atraumatic, normocephalic. ABDOMEN: Soft. Nondistended. Colostomy left lower quadrant. There is serosanguineous drainage from the ostomy. Incision site clean dry and intact NEUROLOGIC: Patient is confused and lethargic ASSESSMENT: 1. Incarcerated parastomal hernia, incisional hernia and adhesions status post exploratory laparotomy, repair of parastomal hernia, lysis of adhesions, partial colectomy, repair of incisional hernia and partial omentectomy. Postop day #7 2. Ileus likely secondary to patient's comorbidities 3. Metabolic encephalopathy PLAN: -Continue ICU management -Continue supportive care -Continue antibiotics -Continue current pain medication as needed -GI prophylaxis Protonix and DVT prophylaxis Lovenox [employer] note has been reviewed by physician. Signing provider agrees with the documented findings, assessment, and plan of care. Objective - Vital Signs Vital signs: Vital Signs Temp 98.1 F 05/07/20 08:00 Pulse 101 H 05/07/20 10:00 Resp 49 H 05/07/20 10:00 BP 162/67 05/07/20 10:00 Pulse Ox 98 05/07/20 10:00 Intake & Output 05/06/20 05/07/20 05/07/20 18:59 06:59 18:59 Intake Total 9256.804 1064.882 320 Output Total 1035 835 360 Balance 895.706 8984.882 -40 Weight 69.4 kg 69.4 kg Intake: IV 1260 1160 320 Meropenem 1 gm In Sodium 200 100 Chloride 0.9% 100 ml @ 33 .3 mls/hr IVPB Q12HR [facility] Rx#:[id number] Mvi, Adult No.4 with Vit 720 720 240 K 10 ml Trace (Conc-1Ml/ Dose) 1 ml In Amino Acid 5%-D20w+Lytes*E* 1,000 ml @ 60 mls/hr IV .[id number] [facility] Rx#:[id number] Sodium Chloride 0.9% 1, 240 240 80 000 ml @ 20 mls/hr IV . Q24H [facility] Rx#:[id number] metroNIDAZOLE-NS PMX 500 100 100 mg In Saline 1 100ml.bag @ 100 mls/hr IVPB Q8HR [facility] Rx#:[id number] Intake, IV Titration 77.167 1162.882 Amount Diltiazem 125 mg In 77.167 Sodium Chloride 0.9% 100 ml @ 10 MG/HR 10 mls/hr IV .[id number] [facility] Rx#: [id number] Heparin Sod,Pork in 0.45% 173.882 NaCl 25,000 unit In 0.45 % NaCl 1 250ml.bag @ 12 UNITS/KG/HR 8.172 mls/hr IV .Q24H [facility] Rx#: [id number] Mvi, Adult No.4 with Vit 989 K 10 ml Trace (Conc-1Ml/ Dose) 1 ml In Amino Acid 5%-D20w+Lytes*E* 1,000 ml @ 60 mls/hr IV .[id number] [facility] Rx#:[id number] Output: Urine 1035 835 360 Stool 0 0 Other: Voiding Method Indwelling Catheter Indwelling Catheter Indwelling Catheter - Labs CBC & Chem 7: 05/07/20 03:47 05/07/20 03:47 Labs: Abnormal Lab Results - Last 24 Hours (Table) 05/06/20 05/06/20 05/07/20 Range/Units 12:04 17:17 00:05 WBC (3.8-10.6) k/uL RBC (3.80-5.40) m/uL Hgb (11.4-16.0) gm/dL Hct (34.0-46.0) % Neutrophils # (1.3-7.7) k/uL Lymphocytes # (1.0-4.8) k/uL APTT (22.0-30.0) sec Carbon Dioxide (22-30) mmol/L BUN (7-17) mg/dL Glucose (74-99) mg/dL POC Glucose (mg/dL) 179 H 167 H 145 H (75-99) mg/dL Calcium (8.4-10.2) mg/dL Total Protein (6.3-8.2) g/dL Albumin (3.5-5.0) g/dL 05/07/20 05/07/20 05/07/20 Range/Units 03:47 03:47 03:47 WBC 10.8 H (3.8-10.6) k/uL RBC 2.81 L (3.80-5.40) m/uL Hgb 8.8 L (11.4-16.0) gm/dL Hct 27.9 L (34.0-46.0) % Neutrophils # 9.1 H (1.3-7.7) k/uL Lymphocytes # 0.8 L (1.0-4.8) k/uL APTT 61.4 H (22.0-30.0) sec Carbon Dioxide 33 H (22-30) mmol/L BUN 56 H (7-17) mg/dL Glucose 137 H (74-99) mg/dL POC Glucose (mg/dL) (75-99) mg/dL Calcium 8.1 L (8.4-10.2) mg/dL Total Protein 5.5 L (6.3-8.2) g/dL Albumin 2.3 L (3.5-5.0) g/dL 05/07/20 Range/Units 06:04 WBC (3.8-10.6) k/uL RBC (3.80-5.40) m/uL Hgb (11.4-16.0) gm/dL Hct (34.0-46.0) % Neutrophils # (1.3-7.7) k/uL Lymphocytes # (1.0-4.8) k/uL APTT (22.0-30.0) sec Carbon Dioxide (22-30) mmol/L BUN (7-17) mg/dL Glucose (74-99) mg/dL POC Glucose (mg/dL) 174 H (75-99) mg/dL Calcium (8.4-10.2) mg/dL Total Protein (6.3-8.2) g/dL Albumin (3.5-5.0) g/dL
--- NOTE | 2020-05-07 11:18 | CDI ---
Documentation Clarification Form Date: 05/07/2020 10:52:34 AM From: Alexia Castro RN, CCDS Admit Date: 04/20/2020 05:38:00 PM Patient Name: Malena Victor Visit Number: [id number] ATTENTION: The Clinical Documentation Specialists (CDI) and [facility] Coding Staff appreciate your assistance in clarifying documentation. Please respond to the clarification below the line at the bottom and electronically sign. The CDI & [facility] Coding staff will review the response and follow-up if needed. Please note: Queries are made part of the Legal Health Record. If you have any questions, please contact the author of this message via ITS. Dr. Shimon Garcia Sepsis has been documented and requires further specificity and clarification. History/Risk Factors: Cad, chronic diastolic CHF, HTN, Sjogren's syndrome, vascular dementia. paroxysmal atrial fib, severe PCM Clinical Indicators: 04/29 Surgical Progress Note: She has WBC over 20,000 for sepsis now improved. ASSESSMENT: Leukocytosis with sepsis, improved." 05/04-05/06 Attending Progress Notes: "SIRS with tachycardia and leukocytosis." 04/30 Procedure Note: "At the case patient had some respiratory failure. She was sent to the ICU on BiPAP." End Organ Dysfunction: MICHAEL with ATN on CKD stage 2 POA, Metabolic encephalopathy POA Infectious processes: UTI POA, Covid positive on admission, Atypical Pneumonia noted on 04/25 04/20-05/10 WBC 9.9/10.6/14.7/15.7 /20.9/13.1/8.7/17.8/27.8/20.2/16.8/12.4/13.1/10.8 04/20, 04/26, 05/02-05/04 Lactic acid: 0.9/1.1/.8/1.3/1 Blood cultures: not done 04/20 Urine Cx: + Providencia stuartii and Proteus mirabilis 04/20 1437 Vital signs on admission: temp 97.9, HR 81, RR 20, B/P 118/62, Spo2 98% RA Treatment: 04/20-04/23 Ceftriaxone 2 gm IVPB Q 24 hrs. 04/23-Current Meropenem 1 gm IVPB Q 12 hrs. 04/20-Current Flagyl 500 mg IVPB Q 8 hrs. ID Consult: not ordered IV Bolus: 04/20 1.5L 0.9% NS IVF Bolus In your professional opinion, please clarify if these findings signify one of the following conditions, whether the condition is POA, and cause, if known: Condition Sepsis ruled out Sepsis (please specify underlying cause if known and POA status) Severe Sepsis Other, please specify Unable to determine Present on Admission Yes No Identify the (suspected) organism Link or clarify if there is associated (due to/with): Organ failure Shock SIRS Criteria (2 or more of the following may indicate SIRS): -Temperature < 96.8F (36C) or > 101.0F (38.3C) -Heart Rate > 90 bpm -Respiratory Rate > 20 breaths/min or PaCO2 < 32 mmHg -White Blood Cell Count > 12,000 or < 4,000 cells/mm3 or > 10% bands -Lactate >2.0 mmol/L (>4.0 is equivalent to septic shock) (Last Revision: June 2017) MTDD
--- NOTE | 2020-05-07 15:01 | P.PN ---
Subjective Progress Note Date: 05/07/20 Principal diagnosis: Status post repair of parastomal hernia, lysis of adhesions, partial colectomy, partial omentectomy, postoperative day #7 This is an 85-year-old female patient who underwent repair of parastomal hernia. The patient has history of rectal cancer and she has undergone a low AP resection with colostomy and the patient came into the hospital because of significant abdominal pain as well as constipation over the past 2 days as the patient resides at [facility] on the [place]. She was given Dulcolax suppositories through the stoma and she was also started on lactulose 30 g twice a day and she continued to complain of increased abdominal pain and distention and she was not able to have any bowel movements with the stoma. X-ray showed nonobstructive gas pattern and significant stool buildup and the patient was having increased amount of pain along with nausea and she was unable to drink and eat. At that point, a CAT scan of the abdomen was done that showed large right-sided abdominal wall ventral hernia that contained multiple loops of small bowel measu ring about 6 x 12 cm in size and the opening was 5.5 cm and the small bowel measuring up to 3.5 cm in diameter and there was incarceration and some mild dilated loops of small bowel consistent with a partial mechanical obstruction related to the hernia. Note that the patient was taken to the operating room today. Preoperatively, she was having some encephalopathy and she seemed to be gradually improving with conservative management. He was taken to the OR and she underwent exploratory laparotomy, repair of a parastomal hernia, lysis of adhesions, partial colectomy and repair of an incisional hernia and partial omentectomy. The estimated blood loss was only 100 mL. The previously inserted tachycardia colostomy was transected and it was replaced on the other side in the left upper quadrant. Postextubation, the patient some increased difficulty breathing. She was kept on a BiPAP at a pressure of 12/60 to me as of water and FiO2 of 50% and currently she is in the intensive care unit. Chest x-ray and blood gases are still pending. The patient was quite obtunded at a time of arrival and she is gradually recovering her level of consciousness for now. She is currently on IV fluids with normal state rate of 50 mL an hour. She is also taking a combination of Flagyl and meropenem as broad-spectrum antibiotics patient on Lovenox 40 mg subcu for DVT prophylaxis. Blood work from this morning showed a hemoglobin of 11.3 with a white cell count of 8.7. Function is stable with a creatinine of 0.7. The patient's albumin was down to 2.5 with a total protein of 5.5. SGPT and SGOT l within normal limits. Reevaluated today on 05/06/2020, patient remains in the ICU, she is on 2 L nasal cannula, in no form of respiratory distress, however the patient is moaning and groaning and complaining of abdominal pain. Improves with pain control medication/Dilaudid, hence I recommended more Dilaudid to be given today. Continues to have significant edema in all her extremities. Patient remains on diuretics. Not requiring BiPAP at this point. Chest x-ray showed bilateral patchy infiltrates, and bibasilar atelectasis. With elevated right hemidiaphragm. Colostomy does not seem to be functional so far. And that being addressed by surgery on the case. Her surgical wound is clean and dry. And she continues to have hypoactive bowel sounds, abdomen seems to be a bit distended. W BC count is 13.1. Hemoglobin is 9.3. Renal profile showed a BUN of 51 creatinine 0.77. Chest x-ray again showed diffuse patchy bilateral infiltrates, and atelectasis Reevaluated today on 05/07/2020, patient is basically about the same, continues to moan and groan, complaining of abdominal discomfort, patient remains constipated, she is on 2 L nasal cannula, she is also on TPN, heart rate is 120, patient is moaning, negative output from her colostomy bag. CBC is relatively normal hemoglobin is 8.8 PTT is 61.4 lites are normal BUN is 56 creatinine 0.7 Objective - Vital Signs Vital signs: Vital Signs Temp 98.1 F 05/07/20 08:00 Pulse 116 H 05/07/20 14:00 Resp 33 H 05/07/20 14:00 BP 119/50 05/07/20 14:00 Pulse Ox 97 05/07/20 14:00 Intake & Output 05/06/20 05/07/20 05/07/20 18:59 06:59 18:59 Intake Total 7535.459 0436.882 760 Output Total 7375 235 6063 Balance 755.093 2402.882 -350 Weight 69.4 kg 69.4 kg Intake: IV 1260 1160 760 Meropenem 1 gm In Sodium 200 100 100 Chloride 0.9% 100 ml @ 33 .3 mls/hr IVPB Q12HR [facility] Rx#:[id number] Mvi, Adult No.4 with Vit 720 720 420 K 10 ml Trace (Conc-1Ml/ Dose) 1 ml In Amino Acid 5%-D20w+Lytes*E* 1,000 ml @ 60 mls/hr IV .[id number] [facility] Rx#:[id number] Sodium Chloride 0.9% 1, 240 240 140 000 ml @ 20 mls/hr IV . Q24H [facility] Rx#:[id number] metroNIDAZOLE-NS PMX 500 100 100 100 mg In Saline 1 100ml.bag @ 100 mls/hr IVPB Q8HR [facility] Rx#:[id number] Intake, IV Titration 77.167 1162.882 0 Amount Diltiazem 125 mg In 77.167 0 Sodium Chloride 0.9% 100 ml @ 10 MG/HR 10 mls/hr IV .[id number] [facility] Rx#: [id number] Heparin Sod,Pork in 0.45% 173.882 NaCl 25,000 unit In 0.45 % NaCl 1 250ml.bag @ 12 UNITS/KG/HR 8.172 mls/hr IV .Q24H [facility] Rx#: [id number] Mvi, Adult No.4 with Vit 989 K 10 ml Trace (Conc-1Ml/ Dose) 1 ml In Amino Acid 5%-D20w+Lytes*E* 1,000 ml @ 60 mls/hr IV .[id number] [facility] Rx#:[id number] Output: Urine 0900 383 5242 Stool 0 0 Other: Voiding Method Indwelling Catheter Indwelling Catheter Indwelling Catheter - Exam GENERAL EXAM: Revealed 85-year-old female, in bed, moaning and groaning, and she is on 2 L nasal cannula. HEAD: Normocephalic/atraumatic. EENT: PERRLA, EOMI, nonicteric, no neck masses, no JVD, no stridor. Dry mucous membranes noted CHEST: No chest wall deformity. Symmetrical expansion. LUNGS: Fine crackles at the bases and rhonchi noted bilaterally. CVS: Regular rate and rhythm, normal S1 and S2, no gallops, no murmurs, no rubs ABDOMEN: Right kidney distended nonrigid, tender to light palpation mid abdominal incision is clean dry and intact, left lower quadrant colostomy with no gas or stool. No hepatosplenomegaly, normal bowel sounds, minimal tenderness noted and the abdomen is distended. EXTREMITIES: No clubbing, diffuse generalized swelling, no cyanosis, 2+ pulses and upper and lower extremities. MUSCULOSKELETAL: Muscle strength and tone normal. SPINE: No scoliosis or deformity SKIN: No rashes CENTRAL NERVOUS SYSTEM: Confused, arousable, does not follow any instructions, moaning and groaning complaining of pain in her abdomen. - Labs CBC & Chem 7: 05/07/20 03:47 05/07/20 03:47 Labs: Abnormal Lab Results - Last 24 Hours (Table) 05/06/20 05/07/20 05/07/20 Range/Units 17:17 00:05 03:47 WBC (3.8-10.6) k/uL RBC (3.80-5.40) m/uL Hgb (11.4-16.0) gm/dL Hct (34.0-46.0) % Neutrophils # (1.3-7.7) k/uL Lymphocytes # (1.0-4.8) k/uL APTT (22.0-30.0) sec Carbon Dioxide 33 H (22-30) mmol/L BUN 56 H (7-17) mg/dL Glucose 137 H (74-99) mg/dL POC Glucose (mg/dL) 167 H 145 H (75-99) mg/dL Calcium 8.1 L (8.4-10.2) mg/dL Total Protein 5.5 L (6.3-8.2) g/dL Albumin 2.3 L (3.5-5.0) g/dL 05/07/20 05/07/20 05/07/20 Range/Units 03:47 03:47 06:04 WBC 10.8 H (3.8-10.6) k/uL RBC 2.81 L (3.80-5.40) m/uL Hgb 8.8 L (11.4-16.0) gm/dL Hct 27.9 L (34.0-46.0) % Neutrophils # 9.1 H (1.3-7.7) k/uL Lymphocytes # 0.8 L (1.0-4.8) k/uL APTT 61.4 H (22.0-30.0) sec Carbon Dioxide (22-30) mmol/L BUN (7-17) mg/dL Glucose (74-99) mg/dL POC Glucose (mg/dL) 174 H (75-99) mg/dL Calcium (8.4-10.2) mg/dL Total Protein (6.3-8.2) g/dL Albumin (3.5-5.0) g/dL Assessment and Plan Assessment: exploratory laparotomy, repair of a parastomal hernia and lysis of adhesions with partial colectomy and repair of an incisional hernia and partial omentectomy. The patient is postop day #7 Acute hypoxic respiratory failure with bilateral patchy infiltrates and atelectasis , patient had recent covid 19 infection, and she clearly has possible underlying bacterial pneumonia at this point, suspect acute hospital- acquired pneumonia. Remains on antibiotics empirically. Acute urinary tract infection, well covered with antibiotics. Acute metabolic encephalopathy. Acute on chronic kidney injury improving. Benign essential hypertension. History of Sjogren syndrome Chronic pain syndrome. History of rectal cancer and previous low anterior resection with colostomy placement. Paroxysmal atrial fibrillation Severe protein calorie malnutrition Chronic anemia. Vascular dementia. Valvular heart disease with moderate mitral regurgitation and mild to moderate pulmonary hypertension. History of overactive bladder. Recommendation: Continue to monitor in the ICU. Continue antibiotics. Continue present supportive care measures. Surgery is following regarding her abdominal distention and nonfunctional colostomy. Keep patient nothing by mouth. Continue TPN for nutritional support. Continue to monitor fluids status. And monitor electrolytes. Continue GI and DVT prophylaxis. Considering the overall picture, I would strongly recommend comfort care measures on this patient and possibly hospice. Time with Patient: Less than 30
[2020-05-07] MEDS: MVI, ADULT NO.4 WITH VIT K 10 ML, TRACE (CONC-1ML/DOSE) 1 ML in AMINO ACID 5%-D20W+LYTE... IV SCH ×6 (15:17→20:04)
[2020-05-07 16:27] LABS: Glucose,Whole Blood 158 mg/dL (75-99)
[2020-05-07 19:09] LABS: Glucose,Whole Blood 151 mg/dL (75-99)
[2020-05-07] MEDS: MORPHINE SULFATE 4 MG/ML SYRINGE IVP PRN ×3 (19:17→21:43)
[2020-05-07] MEDS: SODIUM CHLORIDE 0.9% 1,000 ML IV SCH (20:03)
[2020-05-07] MEDS: OLANZapine 7.5 MG TAB PO SCH (20:14)
[2020-05-07] MEDS: FAT EMULSION 20% 250 ML in EMPTY BAG 1 BAG IV SCH (20:18)
[2020-05-07] MEDS: AMMONIUM LACTATE 12% LOTION 225 GM BTL TOPICAL SCH (20:19)
[2020-05-08] MEDS: MORPHINE SULFATE 4 MG/ML SYRINGE IVP PRN ×6 (00:22→14:25)
[2020-05-08] MEDS: metroNIDAZOLE-NS PMX 500 MG in SALINE 1 100ML.BAG IVPB SCH (00:29)
[2020-05-08 00:30] LABS: Glucose,Whole Blood 154 mg/dL (75-99)
[2020-05-08] MEDS: INSULIN ASPART (NovoLOG) 100 UNIT/ML VIAL SQ SCH ×2 (00:30→06:39)
[2020-05-08] MEDS: HYDROmorphone 1 MG/ML 1 ML SYRINGE IVP PRN ×3 (01:01→09:12)
[2020-05-08 03:00] LABS: Basophils # (A) 0.1 k/uL (0-0.2); Basophils % (A) 1 %; Eosinophils # (A) 0.4 k/uL (0-0.7); Eosinophils % (A) 3 %; HCT 29.4 % (34.0-46.0); HGB 9.2 gm/dL (11.4-16.0); Hypochromasia Slight; Lymphocytes # (A) 0.9 k/uL (1.0-4.8); Lymphocytes % (A) 8 %; MCH 31.3 pg (25.0-35.0); MCHC 31.3 g/dL (31.0-37.0); MCV 99.7 fL (80.0-100.0); Mean Platelet Volume 8.1; Monocytes # (A) 0.5 k/uL (0-1.0); Monocytes % (A) 5 %; Neutrophils # (A) 9.2 k/uL (1.3-7.7); Neutrophils % (A) 82 %; Platelet Count 204 k/uL (150-450); RBC 2.95 m/uL (3.80-5.40); RDW 13.5 % (11.5-15.5); WBC 11.3 k/uL (3.8-10.6)
[2020-05-08 04:45] LABS: Calcium 9.1 mg/dL (8.4-10.2); Magnesium 2.4 mg/dL (1.6-2.3)
[2020-05-08 06:18] LABS: Glucose,Whole Blood 162 mg/dL (75-99)
[2020-05-08] MEDS: MVI, ADULT NO.4 WITH VIT K 10 ML, TRACE (CONC-1ML/DOSE) 1 ML in AMINO ACID 5%-D20W+LYTE... IV SCH ×3 (07:06)
[2020-05-08] MEDS: DILTIAZEM 125 MG in SODIUM CHLORIDE 0.9% 100 ML IV SCH (07:06)
--- NOTE | 2020-05-08 08:38 | P.PN ---
Progress Note - Text Progress Note Date: 05/08/20 This is an 85-year-old female patient with multiple comorbid conditions including paroxysmal atrial fibrillation who was admitted to the hospital initially with COVID-19 infection and also bowel obstruction and she underwent surgery. The patient was seen and the case was discussed with the nurse earlier today. She continues to be in atrial fibrillation and she continues to be on Cardizem IV as well as heparin IV. Overall the prognosis is very poor.
--- NOTE | 2020-05-08 08:54 | P.PN ---
Subjective Progress Note Date: 05/07/20 This is an 85-year-old female patient of Dr. Garcia and Dr. Pulido with past medical history of asthma, CAD with ischemic cardiomyopathy, previous history of lung cancer post resection who is known to have severe lower back pain, history of Klebsiella pneumoniae ESBL urinary tract infection, memory impairment, rectal cancer post low anterior resection with colostomy placement and she has had her stoma moved from one side to the other times to with significant peristomal hernia, patient developed to have a significant abdominal pain as well as constipation over the last few days at [facility] at that time she was given a Dulcolax suppository through the stoma and she was started on lactulose 30 g orally twice every day patient has been complaining of increased abdominal pain and distention not able to have a good BM through the stoma, an x-ray was done over there and that showed nonobstructive gas pattern with significant stool buildup, patient today was having increased amount of pain associated with nausea and not able to eat or drink she was dehydrated as well has not been eating much over the last few days, she was directed to go to the emergency department at [facility] where she was found to have an acute kidney injury as well a hyperkalemia, patient underwent CT abdomen and pelvis without contrast that showed a large right side abdominal wall ventral hernia that contains multiple loops of the small bowel hernia measures about 612 cm the opening is 5.5 cm the small bowel measures up to 3.5 cm in diameter there was incarcerated in and some mildly dilated loops of small bowel consistent with partial mechanical obstruction related to the hernia, patient was started on IV fluid as well as IV antibiotic, and surgical consultation was obtained from and had a long conversation with the emergency room physician on the complexity of the case and if the patient is not a candidate for any surgical intervention at [facility] she will need to be transferred to [facility], this was discussed with her over the phone. 04/21: Patient sitting up in bed in no apparent distress, she appears to be a bit short of breath, her IV fluids were decreased to 75 mL an hour, we'll monitor her input and output and daily weight, she was seen in consultation by cardiology in preparation for surgical intervention will be planned for tomorrow morning, I spoke general surgery and they feel that the patient can the served here for a better quality of life, and there is no need for the patient be transferred to a tertiary care center, cardiology consultation was obtained, echocardiogram will be done, EKG was done also continue beta gume in the form of metoprolol 25 mg orally twice every day, monitor the patient very closely at this time hold off ANGELICA inhibitor due to her kidney function, nephrology seen the patient as well and she seems to be doing better. 04/22: Patient is laying down in bed in minimal respiratory distress, she did receive 40 mg Lasix earlier today because of expiratory wheezes and increased shortness of breath, portable chest x-ray and abdominal x-ray was obtained, we will hold off any surgery at this time until obtaining the result of the x-ray patient does have a good stool output and her stoma at this time, echo care gram still pending at the time of dictation, I believe the patient needs to be monitored for another 24 hours before any surgical intervention. 04/23: Patient known to have mental status changes. CAT scan of the brain ordered which revealed only chronic age-related changes with chronic small vessel ischemia. CTA of the chest done yesterday revealed no pulmonary embolism. T here is new bilateral pleural effusions and pulmonary infiltrates and atelectasis. Heart appeared increased in size with probable congestive heart failure. Large pulmonary arteries consistent with pulmonary hypertension unchanged. Multiple old thoracic compression fractures. New compression frac ture of T4. Patient is afebrile, heart rate 114, blood pressure 182/87, pulse ox 92% on room air. CBC 14.7, hemoglobin 12. Sodium 143, potassium 3.8, chloride 110, CO2 16, BUN 21 and creatinine 0.86. Urine culture is positive for Providencia stuartii. Rocephin will be discontinued and patient started on meropenem 1 g IV piggyback every 8 hours. Echocardiogram reveals EF of 55-60% with mild concentric left ventricular hypertrophy, mild to moderate mitral regurgitation, [id number] tricuspid regurgitation, mild to moderate pulmonary hypertension. 2: Patient continues to have increased confusion and noted to have difficulty swallowing. Speech therapy has evaluated with recommendations. Consult has also been added for neurology for dysphagia. Medications reviewed and patient r esumed on Zyprexa and Lexapro. Patient is afebrile, heart rate 89, blood pressure 160/70, pulse ox 97% on 2 L nasal cannula. There is slight and there is a slight rise in her leukocytosis of 15.7. Hemoglobin is 11. Sodium is 148 potassium 3.2, chloride 113, CO2 20, BUN 25 and creatinine 1.12. IV fluids transition to dextrose 5% at 60 mL/h. Cardiology ordered Cardizem drip for episode of atrial fibrillation. She is continued on IV antibiotics with meropenem and Flagyl. Patient's will be contacted via phone and updated. Patient is not stable at this time for surgical intervention. 2: Patient has been seen by neurology for metabolic encephalopathy. X-ray of the chest reveals improving left lower lobe infiltrate, scattered infiltrates still present bilaterally. Prominence of the heart and pulmonary vasculature. Correlate for heart failure, atypical pulmonary edema could be considered, atypical pneumonia is within differential. Sodium 147, potassium 3.5, chloride 113, BUN 26 and creatinine 1.05. Ammonia level less than 9. TSH 0.490. Nephrology has continued D5W. Patient is unresponsive to questions, not verbalizing, staring blankly. is at bedside. Discussed CODE STATUS with the patient's and he is unable to make a decision at this time oth er than to keep her full code. MRI of the brain ordered to rule out brainstem infarct. General surgery continues to follow for the large parastomal hernia with incarceration, to be done if patient is medically stable. 2: MRI of the brain reveals age-related atrophy with confluence chronic appea ring. Ventricular white matter ischemic type changes. EEG is abnormal with moderate to severe encephalopathy. Patient apparently said yes and no to the nurse today. There's been no seizure activity noted. Patient is eating less than 25% of her meals. IV fluids been increased to 100 mL per hour per nephrology. WBC 20.9, hemoglobin 11.2. Sodium 147, potassium 3.7, chloride 115, CO2 25, BUN 23 and creatinine 0.75. Blood sugar 123. 25: Patient's mental status is improving, she is more awake and alert today, able to answer questions. Speech therapy has evaluated and plan to start trials of diet. Ostomy is functioning. Sodium level is better today at 146. Potassium is 3.7, chloride 114, CO2 25, BUN 23 and creatinine 0.81. She is still on Cardizem drip for atrial fibrillation. She is been afebrile, heart rate in the 80s, blood pressure 130/61, pulse ox 90% on 1 L nasal cannula. Patient continues on D5W at 100 mL per hour. 04/30: Patient is awake and alert. Mental status is much improved. She is scheduled for surgery today with Dr. Falcon. Patient's is at bedside. She has been afebrile, heart rate 75, blood pressure 144/76, pulse ox 90% on room air. WBC 8.7, hemoglobin 11.3. Sodium 136 otherwise electrolytes renal function are normal. Liver function tests are normal. Air in the ostomy bag. No stool at this point. Baez catheter draining clear tobin urine. 05/01: Patient remains in the intensive care unit on BiPAP. Patient is able states she feels better from yesterday. She is status post exploratory laparotomy, parastomal hernia repair, lysis of adhesions, partial colectomy, partial omentectomy, and repair of incisional hernia, postop day #1 patient appears to be comfortable at rest. Pulse ox is 100% on BiPAP. She has been afebrile, heart rate 89, blood pressure 125/72. W BC 17.8, hemoglobin 12. Sodium 136, potassium 4.3, chloride 107, CO2 21, BUN 14 and creatinine 0.78. Liver function tests normal. Patient is known to have generalized edema. Patient was given 1 dose of IV Lasix this morning and we will plan to repeat that this afternoon. Patient is continued on IV Flagyl. 05/02: Patient remains in the intensive care unit. Currently on BiPAP with 50% FiO2 with a pulse ox of 100%. She's been afebrile, heart rate 87, blood pres sure 122/52. Abdominal x-ray shows nonobstructive gas pattern. Chest x-ray this morning reveals marked hypo-ventilation changes. Worsening interstitial changes and patchy airspace infiltrates. WBC 27.8, hemoglobin 10.3, platelet count 222. Electrolytes and renal function are normal. Blood sugars are running in the 140s. Patient is complaining of significant pain. Dilaudid and morphine dosing has been adjusted. Patient is known to have difficulty with both medications with mental status changes. Blood no the patient does well with Percocet and will order 7.5 one every 6 hours as needed. Stoma is slightly dusky in color. The old ostomy site has erythema and warmth. Patient has no output from ostomy. Patient was started on TPN today and fluids discontinued. Due to generalized edema and anasarca, IV Lasix 40 mg daily ordered. Patient had good urine output yesterday after IV Lasix. Output is currently 10-15 mL per hour. 05/03: Patient remains in intensive care unit. She is still not had output from her colostomy. She is complaining of significant pain. We did add in the Percocet to be given orally. We will also ask the nurse to give Zyprexa as scheduled otherwise patient will have difficulty with mental status changes/psychosis. She remains nothing by mouth and has been started on TPN. Patient is able to follow simple commands and answer yes and no questions but meds patient is not at her baseline. She has been afebrile, WBC 20.2, hemoglobin 10.1, sodium 137, potassium 4, creatinine 0.75. Heart rate is running in the low 100s, she is been afebrile, blood pressure 164/70, pulse ox 99% on 2 L. 05/04: Patient remains in the intensive care unit. The patient is placed on BiPAP pulse ox 100% with 50% FiO2. She continues to have difficulty with pain control. TPN is in place. Lasix was increased today to 40 milligrams IV every 12 hours. Repeat Covid has been ordered. Chest x-ray reveals progressive infiltrates throughout the right lung with small effusions. Mild patchy density left lower lobe. Patient has not had any output from colostomy. Stoma is still dusky. Prognosis is guarded. 05/05: Patient is in intensive care unit, she continues to moan and groan, she has been getting IV pain management, she has been receiving TPN, so far no out put of her stoma, patient is maintained on meropenem as well as metronidazole, patient developed atrial fibrillation with rapid ventricular response she was started on Cardizem drip, cardiology consultation, so the patient on heparin drip, and there is no Indication by general surgery, to avoid from embolic disease, we will update the family about her current progress. 05/06: Patient remains in intensive care unit, she continues to have moaning and groaning, very minimal output of her stoma, she continues to be edematous, she is receiving TPN, we will monitor very closely, she was started on heparin drip as well as Cardizem drip yesterday because of atrial fibrillation with rapid response, she is maintained on Flagyl and meropenem, we'll continue to monitor very closely her prognosis very guarded. I had a long conversation with her today regarding her prognosis and that she is not doing too well without, we will let him come up and see the patient and will make the final decision on how to pursue her care this point we'll continue with no code at this time as her quality of life has declined with the last year or so. 05/07: Patient remains in the ICU. Patient is slightly more alert today. Stoma is pale in color. No output from stoma. Patient's and son have been in to see her and are waiting for her daughter to come in. Family contemplating comfort care as patient's condition is not improving and she continues to have significant pain. She is continued on Heparin and cardizem drips. Antibiotics are continued with Meropenem and Flagyl. Objective - Vital Signs Vital signs: Vital Signs Temp 98.1 F 05/07/20 08:00 Pulse 115 H 05/07/20 11:00 Resp 16 05/07/20 11:00 BP 152/51 05/07/20 11:00 Pulse Ox 98 05/07/20 11:00 Intake & Output 05/06/20 05/07/20 05/07/20 18:59 06:59 18:59 Intake Total 9243.555 7315.882 680 Output Total 1035 835 885 Balance 203.945 6602.882 -205 Weight 69.4 kg 69.4 kg Intake: IV 1260 1160 680 Meropenem 1 gm In Sodium 200 100 100 Chloride 0.9% 100 ml @ 33 .3 mls/hr IVPB Q12HR [facility] Rx#:[id number] Mvi, Adult No.4 with Vit 720 720 360 K 10 ml Trace (Conc-1Ml/ Dose) 1 ml In Amino Acid 5%-D20w+Lytes*E* 1,000 ml @ 60 mls/hr IV .[id number] [facility] Rx#:[id number] Sodium Chloride 0.9% 1, 240 240 120 000 ml @ 20 mls/hr IV . Q24H [facility] Rx#:[id number] metroNIDAZOLE-NS PMX 500 100 100 100 mg In Saline 1 100ml.bag @ 100 mls/hr IVPB Q8HR [facility] Rx#:[id number] Intake, IV Titration 77.167 1162.882 Amount Diltiazem 125 mg In 77.167 Sodium Chloride 0.9% 100 ml @ 10 MG/HR 10 mls/hr IV .[id number] [facility] Rx#: [id number] Heparin Sod,Pork in 0.45% 173.882 NaCl 25,000 unit In 0.45 % NaCl 1 250ml.bag @ 12 UNITS/KG/HR 8.172 mls/hr IV .Q24H [facility] Rx#: [id number] Mvi, Adult No.4 with Vit 989 K 10 ml Trace (Conc-1Ml/ Dose) 1 ml In Amino Acid 5%-D20w+Lytes*E* 1,000 ml @ 60 mls/hr IV .[id number] [facility] Rx#:[id number] Output: Urine 1035 835 885 Stool 0 0 Other: Voiding Method Indwelling Catheter Indwelling Catheter Indwelling Catheter - Exam Review of Systems Constitutional: Reports anorexia, Reports fatigue, reports lethargy, Reports malaise, Reports weakness, Reports weight loss. Complains of significant pain. Eyes: denies blurred vision, denies bulging eye, denies decreased vision Ears: bilateral: decreased hearing Ears, nose, mouth and throat: Denies dysphagia, Denies neck lump, Denies sore throat Cardiovascular: Denies chest pain, Denies decreased exercise tolerance, Denies dyspnea on exertion, Denies lightheadedness, Denies rapid heart beat, Denies shortness of breath, Denies syncope Respiratory: Denies congestion, Denies cough with sputum, Denies home oxygen, Denies sleep apnea, Denies snoring, Denies wheezing Gastrointestinal: Reports abdominal pain worsening, Reports bloating, Reports constipation, Reports early satiety, Reports loss of appetite, Reports nausea, Reports vomiting Genitourinary: Denies dysuria, Denies nocturia Menstruation: Reports postmenopausal Musculoskeletal: Reports atrophy, Reports frequent falls, Reports gait dysfuncti on, Reports low back pain, Reports muscle weakness Musculoskeletal: absent: ankle pain, ankle stiffness, ankle swelling, elbow pain, elbow stiffness, elbow swelling, foot pain, foot stiffness, foot swelling, hand pain, hand stiffness, hand swelling, hip pain, hip stiffness, hip swelling, knee pain, knee stiffness, knee swelling, shoulder pain, shoulder stiffness, shoulder swelling, wrist pain, wrist stiffness, wrist swelling Integumentary: Denies pruritus, Denies rash Neurological: Reports balance difficulties, Reports gait dysfunction, Reports weakness, reported mental status changes Psychiatric: Denies anxiety, Denies depression Physical examination HEENT: Head is atraumatic, normocephalic, pupils were equal round reactive to light and accommodation, extraocular muscle movement were intact, sclera nonicteric conjunctiva are pale, mucous membranes of mouth are dry. Neck: Supple, no JVD, decreased carotid upstroke bilaterally. Chest: There is significant kyphosis present, decreased breath sounds at the bases, few rhonchi, no expiratory wheezes, no chest wall tenderness, no interc ostal retractions. Heart: First heart sound is depressed, second heart sounds normal, there is syst olic ejection murmur 2/6 located in the left border. Abdomen: Soft and moderate tenderness generalized, stoma to the left of midline is pale. Old stoma site has erythema and warmth. Stoma bag is empty. Positive drainage from both surgical sites. Extremities: There is 1+ edema, no calf tenderness, dorsalis pedis +1 bilaterally. Neurologic examination: Patient is awake and oriented to person, able to answer questions and follow simple commands. Patient appears to be quite uncomfortable. - Labs CBC & Chem 7: 05/08/20 02:44 05/08/20 02:44 Labs: Abnormal Lab Results - Last 24 Hours (Table) 05/06/20 05/07/20 05/07/20 Range/Units 17:17 00:05 03:47 WBC (3.8-10.6) k/uL RBC (3.80-5.40) m/uL Hgb (11.4-16.0) gm/dL Hct (34.0-46.0) % Neutrophils # (1.3-7.7) k/uL Lymphocytes # (1.0-4.8) k/uL APTT (22.0-30.0) sec Carbon Dioxide 33 H (22-30) mmol/L BUN 56 H (7-17) mg/dL Glucose 137 H (74-99) mg/dL POC Glucose (mg/dL) 167 H 145 H (75-99) mg/dL Calcium 8.1 L (8.4-10.2) mg/dL Total Protein 5.5 L (6.3-8.2) g/dL Albumin 2.3 L (3.5-5.0) g/dL 05/07/20 05/07/20 05/07/20 Range/Units 03:47 03:47 06:04 WBC 10.8 H (3.8-10.6) k/uL RBC 2.81 L (3.80-5.40) m/uL Hgb 8.8 L (11.4-16.0) gm/dL Hct 27.9 L (34.0-46.0) % Neutrophils # 9.1 H (1.3-7.7) k/uL Lymphocytes # 0.8 L (1.0-4.8) k/uL APTT 61.4 H (22.0-30.0) sec Carbon Dioxide (22-30) mmol/L BUN (7-17) mg/dL Glucose (74-99) mg/dL POC Glucose (mg/dL) 174 H (75-99) mg/dL Calcium (8.4-10.2) mg/dL Total Protein (6.3-8.2) g/dL Albumin (3.5-5.0) g/dL Assessment and Plan Plan: 1. Large right lateral abdominal wall hernia with incarceration status post repair of parastomal hernia, lysis of adhesions, partial colectomy, repair of incisional hernia, partial omentectomy. Continue to monitor input and output and daily weight, pain control, this is a high-risk patient, continue Flagyl and meropenem 1 g IV piggyback every 8 hours, continue current pain management with Percocet if possible, monitor the patient respiratory status. Family to meet and possibly change status to comfort care. 2. Acute kidney injury due to poor oral intake of fluid and acute tubular necrosis. Continue IV fluid, monitor input and output and daily weight, check the patient CMP tomorrow morning. 3. Hyperkalemia likely related to acute kidney injury. Continue to monitor 4. Metabolic encephalopathy secondary to acute kidney injury as well as incarcerated large ventral hernia. Continue continue IV antibiotic, monitor the patient very closely. 5. Chronic kidney failure CKD stage II currently with acute kidney injury continue IV fluid resuscitation repeat CMP tomorrow morning. 6. CAD and non-ischemic cardiomyopathy and chronic diastolic heart failure with ejection fraction of 50%. We will maintain the patient on metoprolol 7. Hypertension and hypertensive cardiovascular disease. Continue IV hydralazine as needed. 8. Sjogren syndrome. We'll hold off Salagen 9. Anemia of chronic medical illnesses. Continue to monitor the patient's CBC 10. Chronic pain syndrome. Continue Percocet if patient is able to take oral pain medicine.. 11. Overactive bladder. Discontinue Detrol. 12. 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 13. History of rectal cancer post-low anterior resection with colostomy placement . 14. DVT prophylaxis. Start the patient on Lovenox 40 mg subcutaneously every 24 hours. 15. GI prophylaxis. Protonix 40 mg IV push every 24 hours. 16. Recurrent depression. Continue Zyprexa and Lexapro. Patient to receive Zyprexa despite nothing by mouth status. 17. Acute urinary tract infection. Continue meropenem 1 g IV piggyback every 8 hours. 18. Valvular heart disease with [id number] mitral regurgitation, [id number] tricuspid regurgitation and mild to moderate pulmonary hypertension. 19. Hypernatremia. Monitor 20. Sinus tachycardia and atrial fibrillation, paroxysmal. Continue metoprolol 21. Metabolic encephalopathy secondary to acute kidney injury, hyponatremia, incarcerated ventral hernia, Covid 19, UTI. MRI of the brain negative for acute findings. 22. Severe protein calorie malnutrition. Patient has been started on TPN. 23. Acute hypoxic respiratory failure requiring BiPAP. Dr. Staton is managing. Continue oxygen therapy. 24. SIRS and sepsis with tachycardia and leukocytosis. Continue current treatment. CODE STATUS: No code Guarded prognosis. Discharge Plan: Return to [facility] once stable. Impression and plan of care have been directed as dictated by the signing physician. Caitlin Francis nurse practitioner acting as scribe for signing physician.
[2020-05-08] MEDS ORDERED: ATROPINE OPHTH SOLN 1% 5ML BTL SUBLINGUAL PRN (09:07)
[2020-05-08] MEDS ORDERED: LORazepam 2 MG/ML INJ IV PRN (09:07)
[2020-05-08] MEDS: MORPHINE SULFATE (100 MG/2 ML) 100 MG in SODIUM CHLORIDE 0.9% 100 ML IV SCH ×2 (09:57→23:28)
--- NOTE | 2020-05-08 13:20 | P.PN ---
Subjective Progress Note Date: 05/08/20 Principal diagnosis: Status post repair of parastomal hernia, lysis of adhesions, partial colectomy, partial omentectomy, postoperative day #8 This is an 85-year-old female patient who underwent repair of parastomal hernia. The patient has history of rectal cancer and she has undergone a low AP resection with colostomy and the patient came into the hospital because of significant abdominal pain as well as constipation over the past 2 days as the patient resides at [facility] on the [place]. She was given Dulcolax suppositories through the stoma and she was also started on lactulose 30 g twice a day and she continued to complain of increased abdominal pain and distention and she was not able to have any bowel movements with the stoma. X-ray showed nonobstructive gas pattern and significant stool buildup and the patient was having increased amount of pain along with nausea and she was unable to drink and eat. At that point, a CAT scan of the abdomen was done that showed large right-sided abdominal wall ventral hernia that contained multiple loops of small bowel measu ring about 6 x 12 cm in size and the opening was 5.5 cm and the small bowel measuring up to 3.5 cm in diameter and there was incarceration and some mild dilated loops of small bowel consistent with a partial mechanical obstruction related to the hernia. Note that the patient was taken to the operating room today. Preoperatively, she was having some encephalopathy and she seemed to be gradually improving with conservative management. He was taken to the OR and she underwent exploratory laparotomy, repair of a parastomal hernia, lysis of adhesions, partial colectomy and repair of an incisional hernia and partial omentectomy. The estimated blood loss was only 100 mL. The previously inserted tachycardia colostomy was transected and it was replaced on the other side in the left upper quadrant. Postextubation, the patient some increased difficulty breathing. She was kept on a BiPAP at a pressure of 12/60 to me as of water and FiO2 of 50% and currently she is in the intensive care unit. Chest x-ray and blood gases are still pending. The patient was quite obtunded at a time of arrival and she is gradually recovering her level of consciousness for now. She is currently on IV fluids with normal state rate of 50 mL an hour. She is also taking a combination of Flagyl and meropenem as broad-spectrum antibiotics patient on Lovenox 40 mg subcu for DVT prophylaxis. Blood work from this morning showed a hemoglobin of 11.3 with a white cell count of 8.7. Function is stable with a creatinine of 0.7. The patient's albumin was down to 2.5 with a total protein of 5.5. SGPT and SGOT l within normal limits. Reevaluated today on 05/06/2020, patient remains in the ICU, she is on 2 L nasal cannula, in no form of respiratory distress, however the patient is moaning and groaning and complaining of abdominal pain. Improves with pain control medication/Dilaudid, hence I recommended more Dilaudid to be given today. Continues to have significant edema in all her extremities. Patient remains on diuretics. Not requiring BiPAP at this point. Chest x-ray showed bilateral patchy infiltrates, and bibasilar atelectasis. With elevated right hemidiaphragm. Colostomy does not seem to be functional so far. And that being addressed by surgery on the case. Her surgical wound is clean and dry. And she continues to have hypoactive bowel sounds, abdomen seems to be a bit distended. W BC count is 13.1. Hemoglobin is 9.3. Renal profile showed a BUN of 51 creatinine 0.77. Chest x-ray again showed diffuse patchy bilateral infiltrates, and atelectasis Reevaluated today on 05/07/2020, patient is basically about the same, continues to moan and groan, complaining of abdominal discomfort, patient remains constipated, she is on 2 L nasal cannula, she is also on TPN, heart rate is 120, patient is moaning, negative output from her colostomy bag. CBC is relatively normal hemoglobin is 8.8 PTT is 61.4 lites are normal BUN is 56 creatinine 0.7 Patient was reevaluated today on 05/08/2020, remains in the ICU, on 3 L nasal cannula, O2 saturations 95%, continues to have no output from her colostomy. He needs to have pain, continues to moan and groan. Colostomy is obviously not putting out any fecal material. Patient remains on TPN, she is on Cardizem at 5 mg per hour, patient is requiring significant amount of pain medications for pain control/abdominal pain. CBC is relatively normal electrolytes are normal renal profile showed a BUN of 56 creatinine 0.77 PTT is 56, patient remains on heparin. Obviously the patient is not doing great, and today I discussed her condition with her , and he is willing to proceed with comfort care measures considering her multiple comorbidities and severe pain, and the patient is not a surgical candidate to go back to surgery for her bowel obstruction issue. Objective - Vital Signs Vital signs: Vital Signs Temp 99.7 F H 05/08/20 08:00 Pulse 114 H 05/08/20 09:00 Resp 49 H 05/08/20 09:00 BP 151/56 05/08/20 09:00 Pulse Ox 95 05/08/20 09:00 Intake & Output 05/07/20 05/08/20 05/08/20 18:59 06:59 18:59 Intake Total 2318.833 1350 1210.986 Output Total 1555 1300 140 Balance 763.868 50 2662.986 Weight 69.4 kg 67.222 kg Intake: IV 1260 1350 261 Fat Emulsion 20% 250 ml 210 21 In Empty Bag 1 bag @ 21 mls/hr IV MoWeFr [facility] Rx#: [id number] Meropenem 1 gm In Sodium 100 100 Chloride 0.9% 100 ml @ 33 .3 mls/hr IVPB Q12HR [facility] Rx#:[id number] Mvi, Adult No.4 with Vit 720 720 180 K 10 ml Trace (Conc-1Ml/ Dose) 1 ml In Amino Acid 5%-D20w+Lytes*E* 1,000 ml @ 60 mls/hr IV .[id number] [facility] Rx#:[id number] Sodium Chloride 0.9% 1, 240 220 60 000 ml @ 20 mls/hr IV . Q24H [facility] Rx#:[id number] metroNIDAZOLE-NS PMX 500 200 100 mg In Saline 1 100ml.bag @ 100 mls/hr IVPB Q8HR [facility] Rx#:[id number] Intake, IV Titration 1058.833 949.986 Amount Diltiazem 125 mg In 47.833 Sodium Chloride 0.9% 100 ml @ 10 MG/HR 10 mls/hr IV .[id number] [facility] Rx#: [id number] Morphine Sulfate (100 mg/ 0.986 2 ml) 100 mg In Sodium Chloride 0.9% 100 ml @ 1 MG/HR 1.02 mls/hr IV . Q24H [facility] Rx#:[id number] Mvi, Adult No.4 with Vit 1011 949 K 10 ml Trace (Conc-1Ml/ Dose) 1 ml In Amino Acid 5%-D20w+Lytes*E* 1,000 ml @ 60 mls/hr IV .[id number] [facility] Rx#:[id number] Output: Urine 1555 1300 140 Stool 0 Other: Voiding Method Indwelling Catheter Indwelling Catheter Indwelling Catheter - Exam GENERAL EXAM: Revealed 85-year-old female, in bed, moaning and groaning, and she is on 2 L nasal cannula. HEAD: Normocephalic/atraumatic. EENT: PERRLA, EOMI, nonicteric, no neck masses, no JVD, no stridor. Dry mucous membranes noted CHEST: No chest wall deformity. Symmetrical expansion. LUNGS: Fine crackles at the bases and rhonchi noted bilaterally. CVS: Regular rate and rhythm, normal S1 and S2, no gallops, no murmurs, no rubs ABDOMEN: Right kidney distended nonrigid, tender to light palpation mid abdominal incision is clean dry and intact, left lower quadrant colostomy with no gas or stool. No hepatosplenomegaly, normal bowel sounds, minimal tenderness noted and the abdomen is distended. EXTREMITIES: No clubbing, diffuse generalized swelling, no cyanosis, 2+ pulses and upper and lower extremities. MUSCULOSKELETAL: Muscle strength and tone normal. SPINE: No scoliosis or deformity SKIN: No rashes CENTRAL NERVOUS SYSTEM: Confused, arousable, does not follow any instructions, moaning and groaning complaining of pain in her abdomen. - Labs CBC & Chem 7: 05/08/20 02:44 05/08/20 02:44 Labs: Abnormal Lab Results - Last 24 Hours (Table) 05/07/20 05/07/20 05/08/20 Range/Units 16:24 19:08 00:28 WBC (3.8-10.6) k/uL RBC (3.80-5.40) m/uL Hgb (11.4-16.0) gm/dL Hct (34.0-46.0) % Neutrophils # (1.3-7.7) k/uL Lymphocytes # (1.0-4.8) k/uL APTT (22.0-30.0) sec Carbon Dioxide (22-30) mmol/L BUN (7-17) mg/dL Glucose (74-99) mg/dL POC Glucose (mg/dL) 158 H 151 H 154 H (75-99) mg/dL Magnesium (1.6-2.3) mg/dL 05/08/20 05/08/20 05/08/20 Range/Units 02:44 02:44 02:44 WBC 11.3 H (3.8-10.6) k/uL RBC 2.95 L (3.80-5.40) m/uL Hgb 9.2 L (11.4-16.0) gm/dL Hct 29.4 L (34.0-46.0) % Neutrophils # 9.2 H (1.3-7.7) k/uL Lymphocytes # 0.9 L (1.0-4.8) k/uL APTT 56.4 H (22.0-30.0) sec Carbon Dioxide 32 H (22-30) mmol/L BUN 56 H (7-17) mg/dL Glucose 171 H (74-99) mg/dL POC Glucose (mg/dL) (75-99) mg/dL Magnesium 2.4 H (1.6-2.3) mg/dL 05/08/20 Range/Units 06:16 WBC (3.8-10.6) k/uL RBC (3.80-5.40) m/uL Hgb (11.4-16.0) gm/dL Hct (34.0-46.0) % Neutrophils # (1.3-7.7) k/uL Lymphocytes # (1.0-4.8) k/uL APTT (22.0-30.0) sec Carbon Dioxide (22-30) mmol/L BUN (7-17) mg/dL Glucose (74-99) mg/dL POC Glucose (mg/dL) 162 H (75-99) mg/dL Magnesium (1.6-2.3) mg/dL Assessment and Plan Assessment: exploratory laparotomy, repair of a parastomal hernia and lysis of adhesions with partial colectomy and repair of an incisional hernia and partial omentectomy. The patient is postop day #8 Acute hypoxic respiratory failure with bilateral patchy infiltrates and atelectasis , patient had recent covid 19 infection, and she clearly has possible underlying bacterial pneumonia at this point, suspect acute hospital- acquired pneumonia. Remains on antibiotics empirically. Acute urinary tract infection, well covered with antibiotics. Acute metabolic encephalopathy. Acute on chronic kidney injury improving. Benign essential hypertension. History of Sjogren syndrome Chronic pain syndrome. History of rectal cancer and previous low anterior resection with colostomy placement. Paroxysmal atrial fibrillation Severe protein calorie malnutrition Chronic anemia. Vascular dementia. Valvular heart disease with moderate mitral regurgitation and mild to moderate pulmonary hypertension. History of overactive bladder. Recommendation: I discussed his status and condition with the over the phone, and the would like to proceed with comfort care measures. I fully agree with comfort care measures, Prognosis extremely poor, and quality of life is poor Time with Patient: Less than 30
--- NOTE | 2020-05-08 13:25 | P.PN ---
Subjective Progress Note Date: 05/08/20 CHIEF COMPLAINT: incarcerated parastomal hernia HISTORY OF PRESENT ILLNESS: Patient seen and examined with Dr. Falcon. This is a 85-year-old female with a previous history of diverticulitis and colostomy. Patient has developed a large parastomal hernia with incarcerated small bowel. She has significant abdominal pain and problems with intermittent obstruction. Patient is currently in the ICU. She is status post exploratory laparotomy, repair of parastomal hernia, lysis of adhesions, partial colectomy, repair of incisional hernia and partial omentectomy on 04/30/20. Patient's overall condition is poor. She has remained lethargic. She had a temp of 100 heart rate of 112. White count 11.3. Patient's has decided to proceed with comfort care. PHYSICAL EXAM: VITAL SIGNS: Reviewed. GENERAL: Well-developed in no acute distress. HEENT: No sclera icterus. Extraocular movements grossly intact. Moist buccal mucosa. Head is atraumatic, normocephalic. ABDOMEN: Soft. Nondistended. Colostomy left lower quadrant. There is serosanguineous drainage from the ostomy. Incision site clean dry and intact NEUROLOGIC: Patient is confused and lethargic ASSESSMENT: 1. Incarcerated parastomal hernia, incisional hernia and adhesions status post exploratory laparotomy, repair of parastomal hernia, lysis of adhesions, partial colectomy, repair of incisional hernia and partial omentectomy. Postop day #8 2. Ileus likely secondary to patient's comorbidities 3. Metabolic encephalopathy PLAN: -Agree with comfort care measures Physician Program Research Specialist note has been reviewed by physician. Signing provider agrees with the documented findings, assessment, and plan of care. Objective - Vital Signs Vital signs: Vital Signs Temp 99.7 F H 05/08/20 08:00 Pulse 114 H 05/08/20 09:00 Resp 49 H 05/08/20 09:00 BP 151/56 05/08/20 09:00 Pulse Ox 95 05/08/20 09:00 Intake & Output 05/07/20 05/08/20 05/08/20 18:59 06:59 18:59 Intake Total 2318.833 1350 1210.986 Output Total 1555 1300 140 Balance 763.503 90 5409.986 Weight 69.4 kg 67.222 kg Intake: IV 1260 1350 261 Fat Emulsion 20% 250 ml 210 21 In Empty Bag 1 bag @ 21 mls/hr IV MoWeFr [facility] Rx#: [id number] Meropenem 1 gm In Sodium 100 100 Chloride 0.9% 100 ml @ 33 .3 mls/hr IVPB Q12HR [facility] Rx#:[id number] Mvi, Adult No.4 with Vit 720 720 180 K 10 ml Trace (Conc-1Ml/ Dose) 1 ml In Amino Acid 5%-D20w+Lytes*E* 1,000 ml @ 60 mls/hr IV .[id number] [facility] Rx#:[id number] Sodium Chloride 0.9% 1, 240 220 60 000 ml @ 20 mls/hr IV . Q24H [facility] Rx#:[id number] metroNIDAZOLE-NS PMX 500 200 100 mg In Saline 1 100ml.bag @ 100 mls/hr IVPB Q8HR [facility] Rx#:[id number] Intake, IV Titration 1058.833 949.986 Amount Diltiazem 125 mg In 47.833 Sodium Chloride 0.9% 100 ml @ 10 MG/HR 10 mls/hr IV .[id number] [facility] Rx#: [id number] Morphine Sulfate (100 mg/ 0.986 2 ml) 100 mg In Sodium Chloride 0.9% 100 ml @ 1 MG/HR 1.02 mls/hr IV . Q24H [facility] Rx#:[id number] Mvi, Adult No.4 with Vit 1011 949 K 10 ml Trace (Conc-1Ml/ Dose) 1 ml In Amino Acid 5%-D20w+Lytes*E* 1,000 ml @ 60 mls/hr IV .[id number] [facility] Rx#:[id number] Output: Urine 1555 1300 140 Stool 0 Other: Voiding Method Indwelling Catheter Indwelling Catheter Indwelling Catheter - Labs CBC & Chem 7: 05/08/20 02:44 05/08/20 02:44 Labs: Abnormal Lab Results - Last 24 Hours (Table) 05/07/20 05/07/20 05/08/20 Range/Units 16:24 19:08 00:28 WBC (3.8-10.6) k/uL RBC (3.80-5.40) m/uL Hgb (11.4-16.0) gm/dL Hct (34.0-46.0) % Neutrophils # (1.3-7.7) k/uL Lymphocytes # (1.0-4.8) k/uL APTT (22.0-30.0) sec Carbon Dioxide (22-30) mmol/L BUN (7-17) mg/dL Glucose (74-99) mg/dL POC Glucose (mg/dL) 158 H 151 H 154 H (75-99) mg/dL Magnesium (1.6-2.3) mg/dL 05/08/20 05/08/20 05/08/20 Range/Units 02:44 02:44 02:44 WBC 11.3 H (3.8-10.6) k/uL RBC 2.95 L (3.80-5.40) m/uL Hgb 9.2 L (11.4-16.0) gm/dL Hct 29.4 L (34.0-46.0) % Neutrophils # 9.2 H (1.3-7.7) k/uL Lymphocytes # 0.9 L (1.0-4.8) k/uL APTT 56.4 H (22.0-30.0) sec Carbon Dioxide 32 H (22-30) mmol/L BUN 56 H (7-17) mg/dL Glucose 171 H (74-99) mg/dL POC Glucose (mg/dL) (75-99) mg/dL Magnesium 2.4 H (1.6-2.3) mg/dL 05/08/20 Range/Units 06:16 WBC (3.8-10.6) k/uL RBC (3.80-5.40) m/uL Hgb (11.4-16.0) gm/dL Hct (34.0-46.0) % Neutrophils # (1.3-7.7) k/uL Lymphocytes # (1.0-4.8) k/uL APTT (22.0-30.0) sec Carbon Dioxide (22-30) mmol/L BUN (7-17) mg/dL Glucose (74-99) mg/dL POC Glucose (mg/dL) 162 H (75-99) mg/dL Magnesium (1.6-2.3) mg/dL
[2020-05-08] MEDS: SODIUM CHLORIDE 0.9% 1,000 ML IV SCH (18:36)
[2020-05-08 18:39] VITALS: TEMP 99
[2020-05-09 04:54] LABS: Calcium 8.7 mg/dL (8.4-10.2); Magnesium 2.3 mg/dL (1.6-2.3); Phosphorus 4.7 mg/dL (2.5-4.5); Potassium 4.7 mmol/L (3.5-5.1)
--- NOTE | 2020-05-09 07:47 | P.PN ---
Subjective Progress Note Date: 05/08/20 This is an 85-year-old female patient of Dr. Garcia and Dr. Pulido with past medical history of asthma, CAD with ischemic cardiomyopathy, previous history of lung cancer post resection who is known to have severe lower back pain, history of Klebsiella pneumoniae ESBL urinary tract infection, memory impairment, rectal cancer post low anterior resection with colostomy placement and she has had her stoma moved from one side to the other times to with significant peristomal hernia, patient developed to have a significant abdominal pain as well as constipation over the last few days at [facility] at that time she was given a Dulcolax suppository through the stoma and she was started on lactulose 30 g orally twice every day patient has been complaining of increased abdominal pain and distention not able to have a good BM through the stoma, an x-ray was done over there and that showed nonobstructive gas pattern with significant stool buildup, patient today was having increased amount of pain associated with nausea and not able to eat or drink she was dehydrated as well has not been eating much over the last few days, she was directed to go to the emergency department at [facility] where she was found to have an acute kidney injury as well a hyperkalemia, patient underwent CT abdomen and pelvis without contrast that showed a large right side abdominal wall ventral hernia that contains multiple loops of the small bowel hernia measures about 612 cm the opening is 5.5 cm the small bowel measures up to 3.5 cm in diameter there was incarcerated in and some mildly dilated loops of small bowel consistent with partial mechanical obstruction related to the hernia, patient was started on IV fluid as well as IV antibiotic, and surgical consultation was obtained from and had a long conversation with the emergency room physician on the complexity of the case and if the patient is not a candidate for any surgical intervention at [facility] she will need to be transferred to [facility], this was discussed with her over the phone. 04/21: Patient sitting up in bed in no apparent distress, she appears to be a bit short of breath, her IV fluids were decreased to 75 mL an hour, we'll monitor her input and output and daily weight, she was seen in consultation by cardiology in preparation for surgical intervention will be planned for tomorrow morning, I spoke general surgery and they feel that the patient can the served here for a better quality of life, and there is no need for the patient be transferred to a tertiary care center, cardiology consultation was obtained, echocardiogram will be done, EKG was done also continue beta gume in the form of metoprolol 25 mg orally twice every day, monitor the patient very closely at this time hold off ANGELICA inhibitor due to her kidney function, nephrology seen the patient as well and she seems to be doing better. 04/22: Patient is laying down in bed in minimal respiratory distress, she did receive 40 mg Lasix earlier today because of expiratory wheezes and increased shortness of breath, portable chest x-ray and abdominal x-ray was obtained, we will hold off any surgery at this time until obtaining the result of the x-ray patient does have a good stool output and her stoma at this time, echo care gram still pending at the time of dictation, I believe the patient needs to be monitored for another 24 hours before any surgical intervention. 04/23: Patient known to have mental status changes. CAT scan of the brain ordered which revealed only chronic age-related changes with chronic small vessel ischemia. CTA of the chest done yesterday revealed no pulmonary embolism. T here is new bilateral pleural effusions and pulmonary infiltrates and atelectasis. Heart appeared increased in size with probable congestive heart failure. Large pulmonary arteries consistent with pulmonary hypertension unchanged. Multiple old thoracic compression fractures. New compression frac ture of T4. Patient is afebrile, heart rate 114, blood pressure 182/87, pulse ox 92% on room air. CBC 14.7, hemoglobin 12. Sodium 143, potassium 3.8, chloride 110, CO2 16, BUN 21 and creatinine 0.86. Urine culture is positive for Providencia stuartii. Rocephin will be discontinued and patient started on meropenem 1 g IV piggyback every 8 hours. Echocardiogram reveals EF of 55-60% with mild concentric left ventricular hypertrophy, mild to moderate mitral regurgitation, [id number] tricuspid regurgitation, mild to moderate pulmonary hypertension. 2: Patient continues to have increased confusion and noted to have difficulty swallowing. Speech therapy has evaluated with recommendations. Consult has also been added for neurology for dysphagia. Medications reviewed and patient r esumed on Zyprexa and Lexapro. Patient is afebrile, heart rate 89, blood pressure 160/70, pulse ox 97% on 2 L nasal cannula. There is slight and there is a slight rise in her leukocytosis of 15.7. Hemoglobin is 11. Sodium is 148 potassium 3.2, chloride 113, CO2 20, BUN 25 and creatinine 1.12. IV fluids transition to dextrose 5% at 60 mL/h. Cardiology ordered Cardizem drip for episode of atrial fibrillation. She is continued on IV antibiotics with meropenem and Flagyl. Patient's will be contacted via phone and updated. Patient is not stable at this time for surgical intervention. 2: Patient has been seen by neurology for metabolic encephalopathy. X-ray of the chest reveals improving left lower lobe infiltrate, scattered infiltrates still present bilaterally. Prominence of the heart and pulmonary vasculature. Correlate for heart failure, atypical pulmonary edema could be considered, atypical pneumonia is within differential. Sodium 147, potassium 3.5, chloride 113, BUN 26 and creatinine 1.05. Ammonia level less than 9. TSH 0.490. Nephrology has continued D5W. Patient is unresponsive to questions, not verbalizing, staring blankly. is at bedside. Discussed CODE STATUS with the patient's and he is unable to make a decision at this time oth er than to keep her full code. MRI of the brain ordered to rule out brainstem infarct. General surgery continues to follow for the large parastomal hernia with incarceration, to be done if patient is medically stable. 2: MRI of the brain reveals age-related atrophy with confluence chronic appea ring. Ventricular white matter ischemic type changes. EEG is abnormal with moderate to severe encephalopathy. Patient apparently said yes and no to the nurse today. There's been no seizure activity noted. Patient is eating less than 25% of her meals. IV fluids been increased to 100 mL per hour per nephrology. WBC 20.9, hemoglobin 11.2. Sodium 147, potassium 3.7, chloride 115, CO2 25, BUN 23 and creatinine 0.75. Blood sugar 123. 25: Patient's mental status is improving, she is more awake and alert today, able to answer questions. Speech therapy has evaluated and plan to start trials of diet. Ostomy is functioning. Sodium level is better today at 146. Potassium is 3.7, chloride 114, CO2 25, BUN 23 and creatinine 0.81. She is still on Cardizem drip for atrial fibrillation. She is been afebrile, heart rate in the 80s, blood pressure 130/61, pulse ox 90% on 1 L nasal cannula. Patient continues on D5W at 100 mL per hour. 04/30: Patient is awake and alert. Mental status is much improved. She is scheduled for surgery today with Dr. Falcon. Patient's is at bedside. She has been afebrile, heart rate 75, blood pressure 144/76, pulse ox 90% on room air. WBC 8.7, hemoglobin 11.3. Sodium 136 otherwise electrolytes renal function are normal. Liver function tests are normal. Air in the ostomy bag. No stool at this point. Baez catheter draining clear tobin urine. 05/01: Patient remains in the intensive care unit on BiPAP. Patient is able states she feels better from yesterday. She is status post exploratory laparotomy, parastomal hernia repair, lysis of adhesions, partial colectomy, partial omentectomy, and repair of incisional hernia, postop day #1 patient appears to be comfortable at rest. Pulse ox is 100% on BiPAP. She has been afebrile, heart rate 89, blood pressure 125/72. W BC 17.8, hemoglobin 12. Sodium 136, potassium 4.3, chloride 107, CO2 21, BUN 14 and creatinine 0.78. Liver function tests normal. Patient is known to have generalized edema. Patient was given 1 dose of IV Lasix this morning and we will plan to repeat that this afternoon. Patient is continued on IV Flagyl. 05/02: Patient remains in the intensive care unit. Currently on BiPAP with 50% FiO2 with a pulse ox of 100%. She's been afebrile, heart rate 87, blood pres sure 122/52. Abdominal x-ray shows nonobstructive gas pattern. Chest x-ray this morning reveals marked hypo-ventilation changes. Worsening interstitial changes and patchy airspace infiltrates. WBC 27.8, hemoglobin 10.3, platelet count 222. Electrolytes and renal function are normal. Blood sugars are running in the 140s. Patient is complaining of significant pain. Dilaudid and morphine dosing has been adjusted. Patient is known to have difficulty with both medications with mental status changes. Blood no the patient does well with Percocet and will order 7.5 one every 6 hours as needed. Stoma is slightly dusky in color. The old ostomy site has erythema and warmth. Patient has no output from ostomy. Patient was started on TPN today and fluids discontinued. Due to generalized edema and anasarca, IV Lasix 40 mg daily ordered. Patient had good urine output yesterday after IV Lasix. Output is currently 10-15 mL per hour. 05/03: Patient remains in intensive care unit. She is still not had output from her colostomy. She is complaining of significant pain. We did add in the Percocet to be given orally. We will also ask the nurse to give Zyprexa as scheduled otherwise patient will have difficulty with mental status changes/psychosis. She remains nothing by mouth and has been started on TPN. Patient is able to follow simple commands and answer yes and no questions but meds patient is not at her baseline. She has been afebrile, WBC 20.2, hemoglobin 10.1, sodium 137, potassium 4, creatinine 0.75. Heart rate is running in the low 100s, she is been afebrile, blood pressure 164/70, pulse ox 99% on 2 L. 05/04: Patient remains in the intensive care unit. The patient is placed on BiPAP pulse ox 100% with 50% FiO2. She continues to have difficulty with pain control. TPN is in place. Lasix was increased today to 40 milligrams IV every 12 hours. Repeat Covid has been ordered. Chest x-ray reveals progressive infiltrates throughout the right lung with small effusions. Mild patchy density left lower lobe. Patient has not had any output from colostomy. Stoma is still dusky. Prognosis is guarded. 05/05: Patient is in intensive care unit, she continues to moan and groan, she has been getting IV pain management, she has been receiving TPN, so far no out put of her stoma, patient is maintained on meropenem as well as metronidazole, patient developed atrial fibrillation with rapid ventricular response she was started on Cardizem drip, cardiology consultation, so the patient on heparin drip, and there is no Indication by general surgery, to avoid from embolic disease, we will update the family about her current progress. 05/06: Patient remains in intensive care unit, she continues to have moaning and groaning, very minimal output of her stoma, she continues to be edematous, she is receiving TPN, we will monitor very closely, she was started on heparin drip as well as Cardizem drip yesterday because of atrial fibrillation with rapid response, she is maintained on Flagyl and meropenem, we'll continue to monitor very closely her prognosis very guarded. I had a long conversation with her today regarding her prognosis and that she is not doing too well without, we will let him come up and see the patient and will make the final decision on how to pursue her care this point we'll continue with no code at this time as her quality of life has declined with the last year or so. 05/07: Patient remains in the ICU. Patient is slightly more alert today. Stoma is pale in color. No output from stoma. Patient's and son have been in to see her and are waiting for her daughter to come in. Family contemplating comfort care as patient's condition is not improving and she continues to have significant pain. She is continued on Heparin and cardizem drips. Antibiotics are continued with Meropenem and Flagyl. 05/08: Patient remains on heparin drip and Cardizem drip for atrial fibrillation. She is on TPN for nutrition. Patient still does not have output from ostomy. She's been afebrile, heart rate 114, respiratory rate 49, blood pressure 151/56, pulse ox 95% on 2 L nasal cannula. WBC 11.3, hemoglobin 9.2, platelet count 204 . Sodium 143, potassium 5, chloride 103, CO2 32, BUN 56 and creatinine 0.77. Blood sugar 171. Dr. Hillman's spoke with the family and the decision has been made to make the patient comfort care. All aggressive treatment will be discontinued. Objective - Vital Signs Vital signs: Vital Signs Temp 99.7 F H 05/08/20 08:00 Pulse 114 H 05/08/20 09:00 Resp 49 H 05/08/20 09:00 BP 151/56 05/08/20 09:00 Pulse Ox 95 05/08/20 09:00 Intake & Output 05/07/20 05/08/20 05/08/20 18:59 06:59 18:59 Intake Total 2318.833 1350 1210.986 Output Total 1555 1300 140 Balance 763.118 87 2165.986 Weight 69.4 kg 67.222 kg Intake: IV 1260 1350 261 Fat Emulsion 20% 250 ml 210 21 In Empty Bag 1 bag @ 21 mls/hr IV MoWeFr [facility] Rx#: [id number] Meropenem 1 gm In Sodium 100 100 Chloride 0.9% 100 ml @ 33 .3 mls/hr IVPB Q12HR [facility] Rx#:[id number] Mvi, Adult No.4 with Vit 720 720 180 K 10 ml Trace (Conc-1Ml/ Dose) 1 ml In Amino Acid 5%-D20w+Lytes*E* 1,000 ml @ 60 mls/hr IV .[id number] [facility] Rx#:[id number] Sodium Chloride 0.9% 1, 240 220 60 000 ml @ 20 mls/hr IV . Q24H [facility] Rx#:[id number] metroNIDAZOLE-NS PMX 500 200 100 mg In Saline 1 100ml.bag @ 100 mls/hr IVPB Q8HR [facility] Rx#:[id number] Intake, IV Titration 1058.833 949.986 Amount Diltiazem 125 mg In 47.833 Sodium Chloride 0.9% 100 ml @ 10 MG/HR 10 mls/hr IV .[id number] [facility] Rx#: [id number] Morphine Sulfate (100 mg/ 0.986 2 ml) 100 mg In Sodium Chloride 0.9% 100 ml @ 1 MG/HR 1.02 mls/hr IV . Q24H [facility] Rx#:[id number] Mvi, Adult No.4 with Vit 1011 949 K 10 ml Trace (Conc-1Ml/ Dose) 1 ml In Amino Acid 5%-D20w+Lytes*E* 1,000 ml @ 60 mls/hr IV .[id number] [facility] Rx#:[id number] Output: Urine 1555 1300 140 Stool 0 Other: Voiding Method Indwelling Catheter Indwelling Catheter Indwelling Catheter - Exam Review of Systems Constitutional: Reports anorexia, Reports fatigue, reports lethargy, Reports malaise, Reports weakness, Reports weight loss. Complains of significant pain. Eyes: denies blurred vision, denies decreased vision Ears: bilateral: decreased hearing Ears, nose, mouth and throat: Denies dysphagia, Denies neck lump, Denies sore throat Cardiovascular: Denies chest pain, Denies decreased exercise tolerance, Denies dyspnea on exertion, Denies lightheadedness, Denies rapid heart beat, Denies shortness of breath, Denies syncope Respiratory: Denies congestion, Denies cough with sputum, Denies home oxygen, Denies sleep apnea, Denies snoring, Denies wheezing Gastrointestinal: Reports abdominal pain worsening, Reports bloating, Reports constipation, Reports early satiety, Reports loss of appetite, Reports nausea, Reports vomiting Genitourinary: Denies dysuria, Denies nocturia Menstruation: Reports postmenopausal Musculoskeletal: Reports atrophy, Reports frequent falls, Reports gait dysfunction, Reports low back pain, Reports muscle weakness Musculoskeletal: absent: ankle pain, ankle stiffness, ankle swelling, elbow pain, elbow stiffness, elbow swelling, foot pain, foot stiffness, foot swelling, hand pain, hand stiffness, hand swelling, hip pain, hip stiffness, hip swelling, knee pain, knee stiffness, knee swelling, shoulder pain, shoulder stiffness, shoulder swelling, wrist pain, wrist stiffness, wrist swelling Integumentary: Denies pruritus, Denies rash Neurological: Reports balance difficulties, Reports gait dysfunction, Reports weakness, reported mental status changes Psychiatric: Denies anxiety, Denies depression Physical examination HEENT: Head is atraumatic, normocephalic, pupils were equal round reactive to light and accommodation, extraocular muscle movement were intact, sclera nonicteric conjunctiva are pale, mucous membranes of mouth are dry. Neck: Supple, no JVD, decreased carotid upstroke bilaterally. Chest: There is significant kyphosis present, decreased breath sounds at the bases, few rhonchi, no expiratory wheezes, no chest wall tenderness, no intercostal retractions. Heart: First heart sound is depressed, second heart sounds normal, there is systolic ejection murmur 2/6 located in the left border. Abdomen: Soft and moderate tenderness generalized, stoma to the left of midline is pale. Old stoma site has erythema and warmth. Stoma bag is empty. Positive drainage from both surgical sites. Extremities: There is 1+ edema, no calf tenderness, dorsalis pedis +1 bilaterally. Neurologic examination: Patient is awake and oriented to person, able to answer questions and follow simple commands. Patient appears to be quite uncomfortable. - Labs CBC & Chem 7: 05/08/20 02:44 05/09/20 04:11 Labs: Abnormal Lab Results - Last 24 Hours (Table) 05/07/20 05/07/20 05/08/20 Range/Units 16:24 19:08 00:28 WBC (3.8-10.6) k/uL RBC (3.80-5.40) m/uL Hgb (11.4-16.0) gm/dL Hct (34.0-46.0) % Neutrophils # (1.3-7.7) k/uL Lymphocytes # (1.0-4.8) k/uL APTT (22.0-30.0) sec Carbon Dioxide (22-30) mmol/L BUN (7-17) mg/dL Glucose (74-99) mg/dL POC Glucose (mg/dL) 158 H 151 H 154 H (75-99) mg/dL Magnesium (1.6-2.3) mg/dL 05/08/20 05/08/20 05/08/20 Range/Units 02:44 02:44 02:44 WBC 11.3 H (3.8-10.6) k/uL RBC 2.95 L (3.80-5.40) m/uL Hgb 9.2 L (11.4-16.0) gm/dL Hct 29.4 L (34.0-46.0) % Neutrophils # 9.2 H (1.3-7.7) k/uL Lymphocytes # 0.9 L (1.0-4.8) k/uL APTT 56.4 H (22.0-30.0) sec Carbon Dioxide 32 H (22-30) mmol/L BUN 56 H (7-17) mg/dL Glucose 171 H (74-99) mg/dL POC Glucose (mg/dL) (75-99) mg/dL Magnesium 2.4 H (1.6-2.3) mg/dL 05/08/20 Range/Units 06:16 WBC (3.8-10.6) k/uL RBC (3.80-5.40) m/uL Hgb (11.4-16.0) gm/dL Hct (34.0-46.0) % Neutrophils # (1.3-7.7) k/uL Lymphocytes # (1.0-4.8) k/uL APTT (22.0-30.0) sec Carbon Dioxide (22-30) mmol/L BUN (7-17) mg/dL Glucose (74-99) mg/dL POC Glucose (mg/dL) 162 H (75-99) mg/dL Magnesium (1.6-2.3) mg/dL Assessment and Plan Plan: 1. Large right lateral abdominal wall hernia with incarceration status post repair of parastomal hernia, lysis of adhesions, partial colectomy, repair of incisional hernia, partial omentectomy. 2. Acute kidney injury due to poor oral intake of fluid and acute tubular necrosis. 3. Hyperkalemia likely related to acute kidney injury. 4. Metabolic encephalopathy secondary to acute kidney injury as well as incarcerated large ventral hernia. 5. Chronic kidney failure CKD stage II with acute kidney injury. 6. CAD and non-ischemic cardiomyopathy and chronic diastolic heart failure with ejection fraction of 50%. 7. Hypertension and hypertensive cardiovascular disease. 8. Sjogren syndrome. 9. Anemia of chronic medical illnesses. 10. Chronic pain syndrome. 11. Overactive bladder. 12. 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 13. History of rectal cancer post-low anterior resection with colostomy placement . 14. Recurrent depression. 15. Acute urinary tract infection. 16. Valvular heart disease with [id number]-[id number] mitral regurgitation, [id number] tricuspid regurgitation and mild to moderate pulmonary hypertension. 17. Hypernatremia. 18. Sinus tachycardia and atrial fibrillation, paroxysmal. 19. Metabolic encephalopathy secondary to acute kidney injury, hyponatremia, incarcerated ventral hernia, Covid 19, UTI. 20. Severe protein calorie malnutrition. 21. Acute hypoxic respiratory failure requiring BiPAP. 22. SIRS and sepsis with tachycardia and leukocytosis. PLAN: Comfort measures only. All aggressive treatment discontinued. CODE STATUS: No code Guarded prognosis. Discharge Plan: TBD. [facility] return [facility] with hospice care. Impression and plan of care have been directed as dictated by the signing physician. Caitlin Francis nurse practitioner acting as scribe for signing physician.
[2020-05-09 08:12] VITALS: BP 152/87; PULSE 102; RESP 16
[2020-05-09] MEDS: MORPHINE SULFATE (100 MG/2 ML) 100 MG in SODIUM CHLORIDE 0.9% 100 ML IV SCH ×2 (10:35→14:20)
--- NOTE | 2020-05-09 11:28 | P.PN ---
Progress Note - Text Progress Note Date: 05/09/20 Patient is currently on comfort measures only and continued on morphine drip being titrated for pain control. Nursing to contact us regarding any concerns.
--- NOTE | 2020-05-11 12:06 | P.DS ---
Providers Date of admission: 04/20/20 17:38 Expected date of discharge: 05/09/20 Attending physician: Shimon Garcia Consults: 04/20/20 17:41 Consult Physician Stat Consulting Provider: Andrei Falcon Consult Reason/Comments: Incarcerated hernia, bowel obstruction Do you want consulting provider notified?: Already Contacted 04/20/20 17:57 Consult Physician Routine Consulting Provider: Florinda Evans Consult Reason/Comments: MICHAEL/CKD2 Do you want consulting provider notified?: Yes 04/21/20 12:34 Consult Physician Routine Consulting Provider: Corey Young Consult Reason/Comments: surgical clearance Do you want consulting provider notified?: Already Contacted 04/24/20 09:40 Consult Physician Routine Consulting Provider: Joselito Andrade Consult Reason/Comments: Dysphagia Do you want consulting provider notified?: Yes 04/30/20 13:35 Consult Physician Routine Consulting Provider: Robb Staton Consult Reason/Comments: Respiratory failure Do you want consulting provider notified?: Yes 05/05/20 13:56 Consult Physician Routine Consulting Provider: Gee Crawford Consult Reason/Comments: afib rvr Do you want consulting provider notified?: Yes Primary care physician: Shimon Garcia Hospital Course: This is an 85-year-old female patient of Dr. Garcia and Dr. Pulido with past medical history of asthma, CAD with ischemic cardiomyopathy, previous hist ory of lung cancer post resection who is known to have severe lower back pain, history of Klebsiella pneumoniae ESBL urinary tract infection, memory impairment, rectal cancer post low anterior resection with colostomy placement and she has had her stoma moved from one side to the other times to with significant peristomal hernia, patient developed to have a significant abdominal pain as well as constipation over the last few days at [facility] at that time she was given a Dulcolax suppository through the stoma and she was started on lactulose 30 g orally twice every day patient has been complaining of increased abdominal pain and distention not able to have a good BM through the stoma, an x-ray was done over there and that showed nonobstructive gas pattern with significant stool buildup, patient today was having increased amount of pain associated with nausea and not able to eat or drink she was dehydrated as well has not been eating much over the last few days, she was directed to go to the emergency department at [facility] where she was found to have an acute kidney injury as well a hyperkalemia, patient underwent CT abdomen and pelvis without contrast that showed a large right side abdominal wall ventral hernia that contains multiple loops of the small bowel hernia measures about 612 cm the opening is 5.5 cm the small bowel measures up to 3.5 cm in diameter there was incarcerated in and some mildly dilated loops of small bowel consistent with partial mechanical obstruction related to the hernia, patient was started on IV fluid as well as IV antibiotic, and surgical consultation was obtained from and had a long conversation with the emergency room physician on the complexity of the case and if the patient is not a candidate for any surgical intervention at [facility] she will need to be transferred to [facility], this was discussed with her over the phone. 04/21: Patient sitting up in bed in no apparent distress, she appears to be a bit short of breath, her IV fluids were decreased to 75 mL an hour, we'll monitor her input and output and daily weight, she was seen in consultation by cardiology in preparation for surgical intervention will be planned for tomorrow morning, I spoke general surgery and they feel that the patient can the served here for a better quality of life, and there is no need for the patient be transferred to a tertiary care center, cardiology consultation was obtained, echocardiogram will be done, EKG was done also continue beta gume in the form of metoprolol 25 mg orally twice every day, monitor the patient very closely at this time hold off ANGELICA inhibitor due to her kidney function, nephrology seen the patient as well and she seems to be doing better. 04/22: Patient is laying down in bed in minimal respiratory distress, she did receive 40 mg Lasix earlier today because of expiratory wheezes and increased shortness of breath, portable chest x-ray and abdominal x-ray was obtained, we will hold off any surgery at this time until obtaining the result of the x-ray patient does have a good stool output and her stoma at this time, echo care gram still pending at the time of dictation, I believe the patient needs to be monitored for another 24 hours before any surgical intervention. 04/23: Patient known to have mental status changes. CAT scan of the brain ordered which revealed only chronic age-related changes with chronic small vessel ischemia. CTA of the chest done yesterday revealed no pulmonary embolism. There is new bilateral pleural effusions and pulmonary infiltrates and atelectasis. Heart appeared increased in size with probable congestive heart failure. Large pulmonary arteries consistent with pulmonary hypertension unchanged. Multiple old thoracic compression fractures. New compression fracture of T4. Patient is afebrile, heart rate 114, blood pressure 182/87, pulse ox 92% on room air. CBC 14.7, hemoglobin 12. Sodium 143, potassium 3.8, chloride 110, CO2 16, BUN 21 and creatinine 0.86. Urine culture is positive for Providencia stuartii. Rocephin will be discontinued and patient started on meropenem 1 g IV piggyback every 8 hours. Echocardiogram reveals EF of 55-60% with mild concentric left ventricular hypertrophy, mild to moderate mitral regurgitation, [id number] tricuspid regurgitation, mild to moderate pulmonary hypertension. 2/2: Patient continues to have increased confusion and noted to have difficulty swallowing. Speech therapy has evaluated with recommendations. Consult has also been added for neurology for dysphagia. Medications reviewed and patient resumed on Zyprexa and Lexapro. Patient is afebrile, heart rate 89, blood pressure 160/70, pulse ox 97% on 2 L nasal cannula. There is slight and there i s a slight rise in her leukocytosis of 15.7. Hemoglobin is 11. Sodium is 148 potassium 3.2, chloride 113, CO2 20, BUN 25 and creatinine 1.12. IV fluids transition to dextrose 5% at 60 mL/h. Cardiology ordered Cardizem drip for episode of atrial fibrillation. She is continued on IV antibiotics with meropenem and Flagyl. Patient's will be contacted via phone and updated. Patient is not stable at this time for surgical intervention. 2/3: Patient has been seen by neurology for metabolic encephalopathy. X-ray of the chest reveals improving left lower lobe infiltrate, scattered infiltrates still present bilaterally. Prominence of the heart and pulmonary vasculature. Correlate for heart failure, atypical pulmonary edema could be considered, atypical pneumonia is within differential. Sodium 147, potassium 3.5, chloride 113, BUN 26 and creatinine 1.05. Ammonia level less than 9. TSH 0.490. Nephrology has continued D5W. Patient is unresponsive to questions, not verbalizing, staring blankly. is at bedside. Discussed CODE STATUS with the patient's and he is unable to make a decision at this time other than to keep her full code. MRI of the brain ordered to rule out brainstem infarct. General surgery continues to follow for the large parastomal hernia with incarceration, to be done if patient is medically stable. 04/26: MRI of the brain reveals age-related atrophy with confluence chronic appearing. Ventricular white matter ischemic type changes. EEG is abnormal with moderate to severe encephalopathy. Patient apparently said yes and no to the nurse today. There's been no seizure activity noted. Patient is eating less than 25% of her meals. IV fluids been increased to 100 mL per hour per nephrology. WBC 20.9, hemoglobin 11.2. Sodium 147, potassium 3.7, chloride 115, CO2 25, BUN 23 and creatinine 0.75. Blood sugar 123. 04/27: Patient's mental status is improving, she is more awake and alert today, able to answer questions. Speech therapy has evaluated and plan to start trials of diet. Ostomy is functioning. Sodium level is better today at 146. Potassium is 3.7, chloride 114, CO2 25, BUN 23 and creatinine 0.81. She is still on Cardizem drip for atrial fibrillation. She is been afebrile, heart rate in the 80s, blood pressure 130/61, pulse ox 90% on 1 L nasal cannula. Patient continues on D5W at 100 mL per hour. 04/30: Patient is awake and alert. Mental status is much improved. She is scheduled for surgery today with Dr. Falcon. Patient's is at bedside. She has been afebrile, heart rate 75, blood pressure 144/76, pulse ox 90% on room air. WBC 8.7, hemoglobin 11.3. Sodium 136 otherwise electrolytes renal function are normal. Liver function tests are normal. Air in the ostomy bag. No stool at this point. Baez catheter draining clear tobin urine. 05/01: Patient remains in the intensive care unit on BiPAP. Patient is able states she feels better from yesterday. She is status post exploratory lap arotomy, parastomal hernia repair, lysis of adhesions, partial colectomy, partial omentectomy, and repair of incisional hernia, postop day #1 patient appears to be comfortable at rest. Pulse ox is 100% on BiPAP. She has been afebrile, heart rate 89, blood pressure 125/72. W BC 17.8, hemoglobin 12. Sodium 136, potassium 4.3, chloride 107, CO2 21, BUN 14 and creatinine 0.78. Liver function tests normal. Patient is known to have generalized edema. Patient was given 1 dose of IV Lasix this morning and we will plan to repeat that this afternoon. Patient is continued on IV Flagyl. 05/02: Patient remains in the intensive care unit. Currently on BiPAP with 50% FiO2 with a pulse ox of 100%. She's been afebrile, heart rate 87, blood pressure 122/52. Abdominal x-ray shows nonobstructive gas pattern. Chest x-ray this morning reveals marked hypo-ventilation changes. Worsening interstitial changes and patchy airspace infiltrates. WBC 27.8, hemoglobin 10.3, platelet count 222. Electrolytes and renal function are normal. Blood sugars are running in the 140s. Patient is complaining of significant pain. Dilaudid and morphine dosing has been adjusted. Patient is known to have difficulty with both medications with mental status changes. Blood no the patient does well with Percocet and will order 7.5 one every 6 hours as needed. Stoma is slightly dusky in color. The old ostomy site has erythema and warmth. Patient has no output from ostomy. Patient was started on TPN today and fluids discontinued. Due to generalized edema and anasarca, IV Lasix 40 mg daily ordered. Patient had good urine output yesterday after IV Lasix. Output is currently 10-15 mL per hour. 05/03: Patient remains in intensive care unit. She is still not had output from her colostomy. She is complaining of significant pain. We did add in the Percocet to be given orally. We will also ask the nurse to give Zyprexa as scheduled otherwise patient will have difficulty with mental status changes/ psychosis. She remains nothing by mouth and has been started on TPN. Patient is able to follow simple commands and answer yes and no questions but meds patient is not at her baseline. She has been afebrile, WBC 20.2, hemoglobin 10.1, sodium 137, potassium 4, creatinine 0.75. Heart rate is running in the low 100s, she is been afebrile, blood pressure 164/70, pulse ox 99% on 2 L. 05/04: Patient remains in the intensive care unit. The patient is placed on BiPAP pulse ox 100% with 50% FiO2. She continues to have difficulty with pain control. TPN is in place. Lasix was increased today to 40 milligrams IV every 12 hours. Repeat Covid has been ordered. Chest x-ray reveals progressive infiltrates throughout the right lung with small effusions. Mild patchy density left lower lobe. Patient has not had any output from colostomy. Stoma is still dusky. Prognosis is guarded. 05/05: Patient is in intensive care unit, she continues to moan and groan, she has been getting IV pain management, she has been receiving TPN, so far no output of her stoma, patient is maintained on meropenem as well as metronidazole, patient developed atrial fibrillation with rapid ventricular response she was started on Cardizem drip, cardiology consultation, so the patient on heparin drip, and there is no Indication by general surgery, to avoid from embolic disease, we will update the family about her current progress. 05/06: Patient remains in intensive care unit, she continues to have moaning and groaning, very minimal output of her stoma, she continues to be edematous, she is receiving TPN, we will monitor very closely, she was started on heparin drip as well as Cardizem drip yesterday because of atrial fibrillation with rapid response, she is maintained on Flagyl and meropenem, we'll continue to monitor very closely her prognosis very guarded. I had a long conversation with her today regarding her prognosis and that she is not doing too well without, we will let him come up and see the patient and will make the final decision on how to pursue her care this point we'll continue with no code at this time as her quality of life has declined with the last year or so. 05/07: Patient remains in the ICU. Patient is slightly more alert today. Stoma is pale in color. No output from stoma. Patient's and son have been in to see her and are waiting for her daughter to come in. Family contemplating comfort care as patient's condition is not improving and she continues to have significant pain. She is continued on Heparin and cardizem drips. Antibiotics are continued with Meropenem and Flagyl. 05/08: Patient remains on heparin drip and Cardizem drip for atrial fibrillation. She is on TPN for nutrition. Patient still does not have output from ostomy. She's been afebrile, heart rate 114, respiratory rate 49, blood pressure 151/56, pulse ox 95% on 2 L nasal cannula. WBC 11.3, hemoglobin 9.2, platelet count 204. Sodium 143, potassium 5, chloride 103, CO2 32, BUN 56 and creatinine 0.77. Blood sugar 171. Dr. Hillman's spoke with the family and the decision has been made to make the patient comfort care. All aggressive treatment will be discontinued. 05/09: Patient on May 09. Please see nursing documentation for details. Discharge diagnoses: 1. Large right lateral abdominal wall hernia with incarceration status post repair of parastomal hernia, lysis of adhesions, partial colectomy, repair of incisional hernia, partial omentectomy. 2. Acute kidney injury due to poor oral intake of fluid and acute tubular necrosis. 3. Hyperkalemia likely related to acute kidney injury. 4. Metabolic encephalopathy secondary to acute kidney injury as well as incarcerated large ventral hernia. 5. Chronic kidney failure CKD stage II with acute kidney injury. 6. CAD and non-ischemic cardiomyopathy and chronic diastolic heart failure with ejection fraction of 50%. 7. Hypertension and hypertensive cardiovascular disease. 8. Sjogren syndrome. 9. Anemia of chronic medical illnesses. 10. Chronic pain syndrome. 11. Overactive bladder. 12. 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 13. History of rectal cancer post-low anterior resection with colostomy placement . 14. Recurrent depression. 15. Acute urinary tract infection. 16. Valvular heart disease with [id number] mitral regurgitation, nkir-[id number] tricuspid regurgitation and mild to moderate pulmonary hypertension. 17. Hypernatremia. 18. Sinus tachycardia and atrial fibrillation, paroxysmal. 19. Metabolic encephalopathy secondary to acute kidney injury, hyponatremia, incarcerated ventral hernia, Covid 19, UTI. 20. Severe protein calorie malnutrition. 21. Acute hypoxic respiratory failure secondary to underlying bacterial pneumonia, possible gram-negative pneumonia with recent Covid 19 infection, pneumonia possibly present on admission. 22. SIRS and sepsis with tachycardia and leukocytosis. Impression and plan of care have been directed as dictated by the signing physician. Caitlin Francis nurse practitioner acting as scribe for signing physician. Patient Condition at Discharge: Undetermined Plan - Discharge Summary Discharge Rx Participant: No New Discharge Prescriptions: No Action Escitalopram [Lexapro] 10 mg PO DAILY@0900 Sennosides/Docusate Sodium [Dok Plus Tablet] 1 tab PO BID@0900,2099 Pilocarpine HCl [Salagen] 7.5 mg PO TID@0600,1400,2200 Vit C/E/Zn/Coppr/Lutein/Zeaxan [Preservision Areds 2 Softgel] 1 cap PO DAILY@0900 Cholecalciferol [Vitamin D3 (25 Mcg = 1000 Iu)] 25 mcg PO DAILY@0900 Tolterodine Tartrate [Detrol LA] 4 mg PO DAILY@0600 Ondansetron [Zofran] 4 mg PO Q6H PRN PRN Reason: Nausea Albuterol Sulfate [Proair Respiclick] 1 puff INHALATION RT-QID PRN PRN Reason: Shortness Of Breath Or Wheezing Propylene Glycol/Peg 400/Pf [Systane 0.3-0.4% Eye Drop] 1 drop BOTH EYES Q6H Acetaminophen Tab [Tylenol] 650 mg PO TID@0600,1400,0 Magnesium Oxide 400 mg PO BID@899,2099 cycloSPORINE 0.05% OPHTH SOLN [Restasis] 1 drop BOTH EYES BID@899,2099 OLANZapine [ZyPREXA] 7.5 mg PO HS@2099 Metoprolol Succinate [Toprol XL] 25 mg PO HS@2100 Losartan [Cozaar] 50 mg PO DAILY@0900 Methyl Salicylate/Menthol [Salonpas Patch] 1 patch TRANSDERM DAILY@0900 Lansoprazole 30 mg PO DAILY@0600 Z-Guard 1 applic TOPICAL Q12H Ammonium Lactate Lotion [Lac-Hydrin 12% Lotion] 1 applic TOPICAL HS Gabapentin 300 mg PO BID@899,2099 #6 cap oxyCODONE-APAP 7.5-325MG [Percocet 7.5-325 mg] 0.5 tab PO Q8H PRN #5 tab PRN Reason: Pain Furosemide [Lasix] 40 mg PO DAILY@0900 Lactulose [Cephulac] 20 gm PO BID@0900,2099 Fluticasone Propionate [Flovent Hfa 220 mcg] 1 puff INHALATION RT- BID@899,2099 Discharge Medication List Escitalopram [Lexapro] 10 mg PO DAILY@0900 08/27/18 [History] Pilocarpine HCl [Salagen] 7.5 mg PO TID@0600,1400,219909/19/18 [History] Sennosides/Docusate Sodium [Dok Plus Tablet] 1 tab PO BID@0900,209909/19/18 [History] Cholecalciferol [Vitamin D3 (25 Mcg = 1000 Iu)] 25 mcg PO DAILY@0902/14/19 [History] Vit C/E/Zn/Coppr/Lutein/Zeaxan [Preservision Areds 2 Softgel] 1 cap PO DAILY@89902/14/19 [History] Tolterodine Tartrate [Detrol LA] 4 mg PO DAILY@59902/15/19 [History] Acetaminophen Tab [Tylenol] 650 mg PO TID@0600,1400,219912/12/19 [History] Albuterol Sulfate [Proair Respiclick] 1 puff INHALATION RT-QID PRN 12/12/19 [History] Ammonium Lactate Lotion [Lac-Hydrin 12% Lotion] 1 applic TOPICAL HS 12/12/19 [History] Gabapentin 300 mg PO BID@899,2099 #6 cap 12/12/19 [Rx] Lansoprazole 30 mg PO DAILY@59912/12/19 [History] Losartan [Cozaar] 50 mg PO DAILY@89912/12/19 [History] Magnesium Oxide 400 mg PO BID@899,209912/12/19 [History] Methyl Salicylate/Menthol [Salonpas Patch] 1 patch TRANSDERM DAILY@89912/12/19 [History] Metoprolol Succinate [Toprol XL] 25 mg PO HS@209912/12/19 [History] OLANZapine [ZyPREXA] 7.5 mg PO HS@209912/12/19 [History] Ondansetron [Zofran] 4 mg PO Q6H PRN 12/12/19 [History] Propylene Glycol/Peg 400/Pf [Systane 0.3-0.4% Eye Drop] 1 drop BOTH EYES Q6H 12/12/19 [History] Z-Guard 1 applic TOPICAL Q12H 12/12/19 [History] cycloSPORINE 0.05% OPHTH SOLN [Restasis] 1 drop BOTH EYES BID@899,209912/12/19 [History] oxyCODONE-APAP 7.5-325MG [Percocet 7.5-325 mg] 0.5 tab PO Q8H PRN #5 tab 12/12/19 [Rx] Fluticasone Propionate [Flovent Hfa 220 mcg] 1 puff INHALATION RT-BID@899,209904/20/20 [History] Furosemide [Lasix] 40 mg PO DAILY@89904/20/20 [History] Lactulose [Cephulac] 20 gm PO BID@899,209904/20/20 [History] Follow up Appointment(s)/Referral(s): Shimon Garcia MD [Primary Care Provider] - 1-2 days [facility] [NON-STAFF] - Discharge Disposition: DISCH TO HOSPICE MED FACILTY
== END 2020-05-09 14:30 | disposition hospice, inpatient (51) | DRG 329 ==
LOC: EC 14:28 → 3SCARD 17:38 → UNDODISIN 04-24 16:17 → 2SICU 04-30 13:55
PROVIDERS: ADMIT Internal Medicine; ATTEND Internal Medicine
PROC: 0D9670Z Drainage of Stomach with Drainage Device, Via Natural or Artificial Opening (ICD-10-PCS; 2020-04-20)
PROC: 5A0955A Assistance with Respiratory Ventilation, Greater than 96 Consecutive Hours, High Flow/Velocity Cannula (ICD-10-PCS; 2020-04-30)
PROC: 5A09557 Assistance with Respiratory Ventilation, Greater than 96 Consecutive Hours, Continuous Positive Airway Pressure (ICD-10-PCS; 2020-04-30)
PROC: 05HF33Z Insertion of Infusion Device into Left Cephalic Vein, Percutaneous Approach (ICD-10-PCS; 2020-04-30)
PROC: 0DBE0ZZ Excision of Large Intestine, Open Approach (ICD-10-PCS; principal; 2020-04-30 07:30)
PROC: 0D1E0Z4 Bypass Large Intestine to Cutaneous, Open Approach (ICD-10-PCS; principal; 2020-04-30 07:30)
PROC: 0DBU0ZZ Excision of Omentum, Open Approach (ICD-10-PCS; principal; 2020-04-30 07:30)
PROC: 0WQF0ZZ Repair Abdominal Wall, Open Approach (ICD-10-PCS; principal; 2020-04-30 07:30)
PROC: 02HV33Z Insertion of Infusion Device into Superior Vena Cava, Percutaneous Approach (ICD-10-PCS; 2020-05-01)
PROC: 3E0436Z Introduction of Nutritional Substance into Central Vein, Percutaneous Approach (ICD-10-PCS; 2020-05-01)
DX: K43.3 Parastomal hernia with obstruction, without gangrene (principal); N17.0 Acute kidney failure with tubular necrosis; J96.01 Acute respiratory failure with hypoxia; G93.41 Metabolic encephalopathy; U07.1 COVID-19; A41.9 Sepsis, unspecified organism; E43 Unspecified severe protein-calorie malnutrition; J15.6 Pneumonia due to other Gram-negative bacteria; R64 Cachexia; I42.8 Other cardiomyopathies; I13.0 Hypertensive heart and chronic kidney disease with heart failure and stage 1 through stage 4 chronic kidney disease, or unspecified chronic kidney disease; E87.0 Hyperosmolality and hypernatremia; E87.2 Acidosis; F33.9 Major depressive disorder, recurrent, unspecified; E87.1 Hypo-osmolality and hyponatremia; I50.32 Chronic diastolic (congestive) heart failure; N39.0 Urinary tract infection, site not specified; J98.11 Atelectasis; K56.7 Ileus, unspecified; M48.54XA Collapsed vertebra, not elsewhere classified, thoracic region, initial encounter for fracture; I27.20 Pulmonary hypertension, unspecified; F01.50 Vascular dementia, unspecified severity, without behavioral disturbance, psychotic disturbance, mood disturbance, and anxiety; M35.00 Sjogren syndrome, unspecified; I73.9 Peripheral vascular disease, unspecified; N18.30 Chronic kidney disease, stage 3 unspecified; I48.0 Paroxysmal atrial fibrillation; Z66 Do not resuscitate; Z51.5 Encounter for palliative care; R13.10 Dysphagia, unspecified; D63.1 Anemia in chronic kidney disease; K43.2 Incisional hernia without obstruction or gangrene; K66.0 Peritoneal adhesions (postprocedural) (postinfection); E87.5 Hyperkalemia; E86.0 Dehydration; E87.6 Hypokalemia; E86.1 Hypovolemia; B96.89 Other specified bacterial agents as the cause of diseases classified elsewhere; B96.4 Proteus (mirabilis) (morganii) as the cause of diseases classified elsewhere; J45.909 Unspecified asthma, uncomplicated; E78.5 Hyperlipidemia, unspecified; I08.1 Rheumatic disorders of both mitral and tricuspid valves; G47.33 Obstructive sleep apnea (adult) (pediatric); I25.10 Atherosclerotic heart disease of native coronary artery without angina pectoris; N32.81 Overactive bladder; G89.4 Chronic pain syndrome; M19.90 Unspecified osteoarthritis, unspecified site; R29.6 Repeated falls; Z68.23 Body mass index [BMI] 23.0-23.9, adult; Z53.8 Procedure and treatment not carried out for other reasons; Z79.899 Other long term (current) drug therapy; Z85.118 Personal history of other malignant neoplasm of bronchus and lung; Z87.440 Personal history of urinary (tract) infections; Z86.19 Personal history of other infectious and parasitic diseases; Z86.14 Personal history of Methicillin resistant Staphylococcus aureus infection; Z90.49 Acquired absence of other specified parts of digestive tract; Z90.89 Acquired absence of other organs; Z90.710 Acquired absence of both cervix and uterus; Z87.19 Personal history of other diseases of the digestive system; Z87.42 Personal history of other diseases of the female genital tract; Z98.42 Cataract extraction status, left eye; Z98.41 Cataract extraction status, right eye; Z87.2 Personal history of diseases of the skin and subcutaneous tissue; Z85.048 Personal history of other malignant neoplasm of rectum, rectosigmoid junction, and anus; Z87.311 Personal history of (healed) other pathological fracture; Z98.890 Other specified postprocedural states; Z88.5 Allergy status to narcotic agent; Z88.0 Allergy status to penicillin; Z88.8 Allergy status to other drugs, medicaments and biological substances; Z88.6 Allergy status to analgesic agent; Z88.1 Allergy status to other antibiotic agents; Z91.02 Food additives allergy status; Z91.011 Allergy to milk products; Z84.1 Family history of disorders of kidney and ureter; Z82.0 Family history of epilepsy and other diseases of the nervous system; Z82.3 Family history of stroke; Z83.2 Family history of diseases of the blood and blood-forming organs and certain disorders involving the immune mechanism
CPT/HCPCS: 36410; 36415; 36573; 36600; 70450; 70553; 71045; 71275; 74018; 74176; 76937; 80048; 80053; 81001; 82140; 82150; 82330; 82607; 82747; 82805; 83036; 83605; 83690; 83735; 84100; 84145; 84443; 84478; 85025; 85379; 85610; 85730; 86850; 86900; 86901; 87077; 87086; 87186; 87635; 88307; 93306; 94640; 94660; 94760; 95816; 96361; 96365; 96367; 99291

== ENCOUNTER 2020-05-09 14:09 | Inpatient (IN) | payer MEDICAID ==
[2020-05-09] MEDS ORDERED: ONDANSETRON 4 MG/2 ML VIAL IVP PRN (14:14)
[2020-05-09] MEDS ORDERED: LORazepam 2 MG/ML INJ IV PRN (14:14)
[2020-05-09] MEDS ORDERED: ATROPINE OPHTH SOLN 1% 5ML BTL SUBLINGUAL PRN (14:14)
[2020-05-09] MEDS ORDERED: ACETAMINOPHEN SUPPOSITORY 650 MG SUPP RECTAL PRN (14:14)
[2020-05-09] MEDS ORDERED: MORPHINE SULFATE (100 MG/2 ML) 100 MG in SODIUM CHLORIDE 0.9% 100 ML IV SCH (14:15)
== END 2020-05-09 17:52 | disposition expired | DRG 951 ==
LOC: 2SICU 14:31
PROVIDERS: ADMIT Internal Medicine; ATTEND Internal Medicine
DX: Z51.5 Encounter for palliative care (principal); N17.0 Acute kidney failure with tubular necrosis; G93.41 Metabolic encephalopathy; U07.1 COVID-19; I13.0 Hypertensive heart and chronic kidney disease with heart failure and stage 1 through stage 4 chronic kidney disease, or unspecified chronic kidney disease; I42.8 Other cardiomyopathies; K43.3 Parastomal hernia with obstruction, without gangrene; F33.9 Major depressive disorder, recurrent, unspecified; F01.50 Vascular dementia, unspecified severity, without behavioral disturbance, psychotic disturbance, mood disturbance, and anxiety; Z66 Do not resuscitate; K43.2 Incisional hernia without obstruction or gangrene; E87.5 Hyperkalemia; E86.0 Dehydration; N18.2 Chronic kidney disease, stage 2 (mild); I25.10 Atherosclerotic heart disease of native coronary artery without angina pectoris; M35.00 Sjogren syndrome, unspecified; D63.1 Anemia in chronic kidney disease; G89.4 Chronic pain syndrome; M19.90 Unspecified osteoarthritis, unspecified site; N32.81 Overactive bladder; Z79.899 Other long term (current) drug therapy; Z85.048 Personal history of other malignant neoplasm of rectum, rectosigmoid junction, and anus; Z87.440 Personal history of urinary (tract) infections; Z86.19 Personal history of other infectious and parasitic diseases; Z86.14 Personal history of Methicillin resistant Staphylococcus aureus infection; Z90.49 Acquired absence of other specified parts of digestive tract; Z90.89 Acquired absence of other organs; Z90.710 Acquired absence of both cervix and uterus; Z87.19 Personal history of other diseases of the digestive system; Z87.42 Personal history of other diseases of the female genital tract; Z98.42 Cataract extraction status, left eye; Z98.41 Cataract extraction status, right eye; Z87.2 Personal history of diseases of the skin and subcutaneous tissue; Z98.890 Other specified postprocedural states; Z84.1 Family history of disorders of kidney and ureter; Z82.0 Family history of epilepsy and other diseases of the nervous system; Z82.3 Family history of stroke; Z83.2 Family history of diseases of the blood and blood-forming organs and certain disorders involving the immune mechanism